=== PATIENT | female | born 1960 | race Caucasian/White ===

== ENCOUNTER → 2018-09-28 10:06 | Outpatient (CLI) | payer OTHER, SELFPAY ==
--- NOTE | 2018-09-28 10:12 | RAD_ITS ---
STUDY: X-RAY CHEST REASON FOR EXAM: Female, 58 years old. Rheumatoid arthritis. TECHNIQUE: PA and lateral views of the chest. COMPARISON: None. FINDINGS: The lungs are clear and expanded. There is no demonstrated pleural abnormality. Normal size heart. Normal mediastinum and idalmis. Normal visualized pulmonary arteries. Normal visualized aortic arch and descending thoracic aorta. Normal visualized thoracic spine. Normal visualized ribs, clavicles, and shoulders. There is no demonstrated abnormality of the visualized soft tissue structures of the upper abdomen. RAD/Chest PA and Lateral IMPRESSION: No acute cardiopulmonary disease. Electronically Signed: Oumar Escalona DO at 23:39 EST Tel [phone], Service support ,
--- NOTE | 2018-09-28 10:12 | RAD_ITS ---
STUDY: X-RAY - RIGHT HAND REASON FOR EXAM: Female, 58 years old. Rheumatoid arthritis. TECHNIQUE: 3 view(s) of the hand. COMPARISON: None. FINDINGS: Normal radiocarpal articulation. Normal distal radioulnar joint. Normal visualized carpal bones. Normal carpal articulations Normal carpometacarpal articulation of the thumb. Normal second through fifth carpometacarpal joints. Normal metacarpi. 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 Normal interphalangeal joint of the thumb. Normal proximal and distal phalanges of the thumb. Normal metacarpophalangeal joints of the second through fifth fingers. Normal proximal and distal interphalangeal joints of the second through fifth fingers. Normal phalanges of the second through fifth fingers. The soft tissue structures are unremarkable. 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 Electronically Signed: Oumar Escalona DO at 23:38 EST Tel [phone], Service support ,
--- NOTE | 2018-09-28 10:16 | RAD_ITS ---
STUDY: X-RAY - LEFT HAND REASON FOR EXAM: Female, 58 years old. Rheumatoid arthritis. TECHNIQUE: 3 view(s) of the hand. COMPARISON: None. FINDINGS: There is joint space narrowing of the radiocarpal articulation consistent with degenerative arthrosis. Normal distal radioulnar joint. Normal visualized carpal bones. There is degenerative joint disease of the scaphotrapezium / trapezoid articulation. The remainder of the carpal articulations are normal. Normal carpometacarpal articulation of the thumb. Normal second through fifth carpometacarpal joints. Normal metacarpi. Normal metacarpophalangeal joint of the thumb. Normal interphalangeal joint of the thumb. Normal proximal and distal phalanges of the thumb. Normal metacarpophalangeal joints of the second through fifth fingers. Normal proximal and distal interphalangeal joints of the second through fifth fingers. Normal phalanges of the second through fifth fingers. The soft tissue structures are unremarkable. RAD/Hand Min 3 Views IMPRESSION: Arthrosis of the wrist. Electronically Signed: Oumar Escalona DO at 23:22 EST Tel [phone], Service support ,
[2018-09-28 12:10] LABS: Absolute Lymphocyte Count 1.84 X10^3/ul (0.83-4.51); Absolute Neutrophil Count 2.4 X10^3/uL (2.0-7.7); Basophil# 0.02 X10^3/uL; Basophil% 0.4 % (0-1); Eosinophil# 0.24 X10^3/uL; Eosinophils% 4.7 % (0-5); Hematocrit 37.6 % (37-47); Hemoglobin 12.4 g/dl (12.0-15.0); Lymphocyte # 1.84 X10^3/ul (4.0); Lymphocyte % 36.1 % (19-41); Mean Corpuscular Hgb 27.9 pg (27.0-32.0); Mean Corpuscular Volume 84.5 fL (81-99); Mean Platelet Vol. 10.5 fl (6.2-12.0); Monocyte# 0.62 X10^3/uL; Monocyte% 12.2 % (0-10); Neutrophil # 2.38 X10^3/uL (2.7-7.7); Neutrophil % 46.6 % (47-70); Platelet Count 207 K/mm3 (150-450); RBC Distribution Width CV 13.5 % (11.6-14.6); RBC Distribution Width SD 40.9 fl (35.1-43.9); Red Blood Count 4.45 M/mm3 (4.2-5.4); White Blood Count 5.1 K/mm3 (4.4-11.0)
[2018-09-28 12:12] LABS: POSITIVE COUNT NO; POSITIVE DIFFERENTIAL NO; POSITIVE MORPHOLOGY NO
[2018-09-28 12:31] LABS: AST(SGOT) 27 U/L (15-37); Alanine Aminotransfer ALT/SGPT 34 U/L (13-56); Alkaline Phosphatase 75 U/L (45-117); Anion Gap 5 (5-15); BUN 13 mg/dL (7-18); BUN/Creat Ratio 14.3 RATIO (10-20); Calcium,Total 8.6 mg/dL (8.5-10.1); Chloride 104 mmol/L (98-107); Creatinine, Serum 0.91 mg/dL (0.55-1.02); EST Glomerular Filtration Rate 67 mL/min (>60); Est Glom Filt Rate - Afr Amer 82 mL/min (>60); Glucose 89 mg/dL (74-106); Potassium 3.7 mmol/L (3.5-5.1); Sodium Level 138 mmol/L (136-145)
[2018-09-30 20:08] LABS: QNTFERON TB Mitogen Value > 10.00 IU/mL (.); QNTFERON TB Nil Value 0.06 IU/mL (.); QNTFERON TB1+ Ag Value 0.05 IU/mL (.); QNTFERON TB2+ Ag Value 0.08 IU/mL (.)
[2018-10-01 09:56] LABS: ANTINUCLEAR ANTIBODIES DIRECT Positive (Negative)
[2018-10-01 11:25] LABS: CCP IgG Antibodies > 250 units (0-19); HEPATITIS B SURFACE AG Negative (Negative); Hep B Surface Antibodies Non Reactive (.); Hep C Antibodies <0.1 s/co ratio (0.0-0.9); QNTIFERON TB Positive Criteria Negative (Negative)
--- OUTSIDE RECORDS SUMMARY | 2018-11-30 12:54 | XMS RPT_ITS ---
:1960 Author Organization OHIP Care Team Providers Name Role Phone Mary Vera Attending Unavailable Mary Vera Referring Unavailable Franck De La Garza Primary Care Unavailable NATALYA, JANUARY Attending Unavailable AZRADHA, JANUARY Referring Unavailable FARRUKH LUJAN Attending Unavailable PANKAJ VALERIO ([facility]) Referring Unavailable AZEM, JANUARY Referring Unavailable NATALYA, JANUARY Referring Unavailable FRANCK DE LA GARZA Referring Unavailable FRANCK DE LA GARZA Attending Unavailable BECKY ZAMARRIPA ([facility]) Referring Unavailable FRANCK DE LA GARZA Attending Unavailable FRANCK DE LA GARZA Referring Unavailable FRANCK DE LA GARZA Referring Unavailable HASAN, HILARY Attending Unavailable HASHILARY OLIVARES Referring Unavailable FRANCK DE LA GARZA Attending Unavailable FRANCK DE LA GARZA Referring Unavailable HASAN, HILARY Referring Unavailable RADHA NOLAN ([facility]) Referring Unavailable Tapan HOANG MAY Attending Unavailable Tapan HOANG MAY Referring Unavailable Franck De La Garza MD Primary Care Unavailable Tapan HOANG MAY Attending Unavailable Tapan HOANG MAY Referring Unavailable Franck De La Garza MD Primary Care Unavailable PROBLEMS PROBLEMS DATE TYPE CONDITION / CODE ATTENDING STATUS SOURCE Unknown M05.79 - Rheumatoid Chuy, Active [place] 9 arthritis with rheumatoid [facility] of multiple sites Hospital without organ or systems Repository involvement / M05.79(ICD-10) Unknown M79.7 - Fibromyalgia / [place]ellanki, Active [place] 9 M79.7(ICD-10) [facility] Repository Unknown N20.0 - Calculus of Vellanki, Active [place] 9 kidney / N20.0(ICD-10) [facility] Repository Unknown E89.0 - Postprocedural Vellanki, Active [place] 9 hypothyroidism / [facility] E89.0(ICD-10) Hospital Repository Unknown Z85.850 - Personal Vellanki, Active [place] 9 history of malignant [facility] neoplasm of thyroid / Hospital Z85.850(ICD-10) Repository Active Dysphonia / R49.0(ICD-10) NA Active [place] [facility] Clinic Main [place] Repository Active Postprocedural NA Active [place] [address] hypothyroidism / Clinic Main E89.0(ICD-10) [place] Repository Active Unknown / UNK(Unknown) BINTAPHIA Active [address] Main [place] Repository Active Chronic kidney disease, NA Active [place] [address] stage 3 (moderate) / Clinic Main N18.3(ICD-10) [place] Repository Active Encounter for screening NA Active [place] [address] for other viral diseases Clinic Main / Z11.59(ICD-10) [place] Repository Active Unspecified injury of Active [place] [address] left shoulder and upper Clinic Main arm, initial encounter / [place] S49.92XA(ICD-10) Repository Active Other prison (current) NA Active [place] [address] drug therapy / Clinic Main Z79.899(ICD-10) [place] Repository Active Arthropathic psoriasis, NA Active [place] [address] unspecified / Clinic Main L40.50(ICD-10) [place] Repository Active Insomnia, unspecified / AZEM, MAY Active [place] [address] G47.00(ICD-10) Clinic Other [place] Repository Active Cervicalgia / AZEM, MAY Active [place] [address] M54.2(ICD-10) Clinic Other [place] Repository Active Rheumatoid arthritis with AZEM, MAY Active [place] 6 rheumatoid factor of Clinic Other multiple sites without [place] organ or systems Repository involvement / M05.79(ICD-10) Active Sicca syndrome with AZEM, MAY Active [place] [address] keratoconjunctivitis / Clinic Other M35.01(ICD-10) [place] Repository Active Malignant neoplasm of AZEM, MAY Active [place] [address] thyroid gland / Clinic Other C73(ICD-10) [place] Repository Active Lumbago with sciatica, EMJanuary Active [place] [address] unspecified side / Clinic Other M54.40(ICD-10) [place] Repository Active Other chronic pain / EM, JANUARY Active [place] [address] G89.29(ICD-10) Clinic Other [place] Repository Admitting Unknown / UNK(Unknown) Tapan HOANG Active [place] [address] diagnosis [facility] Repository PROCEDURES PROCEDURES No Procedure Records FoundRESULTS RESULTS CBC W/DIFF, AUTOMATED Collected: 09/28/2018 Status: F Source: [place] 10:16 AM [facility] REPOSITORY TYPE CODE TESTS RESULT OUT OF RANGE REFERENCE UNITS LAB L100.1000 4.4-11.0 K/mm3 Normal WBC 5.1 LAB L100.1200 4.2-5.4 M/mm3 Normal RBC 4.45 LAB L100.1300 12.0-15.0 g/dl Normal HGB 12.4 LAB L100.1400 37-47 % Normal HCT 37.6 LAB L100.1500 81-99 fL Normal MCV 84.5 LAB L100.1600 27.0-32.0 pg Normal MCH 27.9 LAB L100.1700 32-36 g/gl Normal MCHC 33.0 LAB L100.1810 11.6-14.6 % Normal RDW CV 13.5 LAB L100.1820 35.1-43.9 fl Normal RDW SD 40.9 LAB L100.1900 150-450 K/mm3 Normal PLT 207 LAB L100.2000 6.2-12.0 fl Normal MPV 10.5 LAB L100.2100 47-70 % Low NEUT% 46.6 LAB L100.2200 19-41 % Normal LY% 36.1 LAB L100.2300 0-10 % High MONO% 12.2 LAB L100.2400 0-5 % Normal EO% 4.7 LAB L100.2500 0-1 % Normal BASO% 0.4 LAB L100.2550 0.0-0.9 % Normal IM GRAN % 0.000 Result Comment: IG% - Immature Granulocytes (promyelocytes, myelocytes and metamyelocytes) > 1% indicates that a LEFT SHIFT is Present. LAB L100.2620 2.0-7.7 X10 3/uL Normal Absolute Neut 2.4 LAB L100.2720 0.83-4.51 X10 3/ul Normal Absolute Lymph 1.84 Performed By: #### L100.0100 #### [facility] [address] [place], [address] COMPREHENSIVE METABOLIC Collected: 09/28/2018 Status: F Source: [place] [facility] 10:16 AM [facility] REPOSITORY TYPE CODE TESTS RESULT OUT OF RANGE REFERENCE UNITS LAB L501.0100 74-106 mg/dL Normal GLU 89 Result Comment: Please note revised GLUCOSE reference range effective 2017. LAB L501.1000 7-18 mg/dL Normal BUN 13 LAB L501.1100 0.55-1.02 mg/dL Normal CREAT,SERUM 0.91 Result Comment: The validity of the calculated GFR AND GFRAA in patients over 70 years has not been determined. Clinical correlation is essential. LAB L501.1110 >60 mL/min Normal EST GFR 67 Result Comment: Non- GFR Calc LAB L501.1115 >60 mL/min Normal EST GFR - AA 82 Result Comment: GFR Calc LAB L501.1300 10-20 RATIO Normal BUN/CRE 14.3 LAB L501.1500 6.4-8.2 g/dL T Normal PROT 8.0 LAB L501.1800 3.2-5.0 g/dL Normal ALB 4.0 LAB L501.1950 2.2-4.2 g/dL Normal GLOB 4.0 LAB L501.2000 0.9-2.4 RATIO Normal A/G 1.0 LAB L501.2200 8.5-10.1 mg/dL CA Normal 8.6 LAB L501.4100 15-37 U/L Normal AST 27 LAB L501.4305 45-117 U/L Normal ALK P 75 LAB L501.4405 13-56 U/L Normal ALT 34 LAB L501.4600 0.20-1.00 mg/dL T Normal BILI 0.30 LAB L501.5300 136-145 mmol/L NA Normal 138 LAB L501.5600 3.5-5.1 mmol/L K Normal 3.7 LAB L501.5900 98-107 mmol/L CL Normal 104 LAB L501.6100 21.0-32.0 mmol/L Normal CO2 29.0 LAB L501.6209 5-15 Normal GAP 5 Performed By: #### L500.4050 #### [facility] [address] [place], [address] HAND MIN 3 VIEWS Observed: 09/28/2018 Status: F Source: [place] 10:16 AM [facility] REPOSITORY [facility] Imaging Services [address] [place] [address] Hand Min 3 Views MR#: [id number] Acct: [id number] Name: AMY VEGA V Rep #: [id number] : 1960 F 58 From: Oumar Escalona DO PCP: Franck De La Garza MD Status: REG CLI Study: Hand Min 3 Views Date of Exam: 09/28/18 Exam# [id number] Ordering Dr: Mary Vera MD STUDY: X-RAY - LEFT HAND REASON FOR EXAM: Female, 58 years old. Rheumatoid arthritis. TECHNIQUE: 3 view(s) of the hand. COMPARISON: None. FINDINGS: There is joint space narrowing of the radiocarpal articulation consistent with degenerative arthrosis. Normal distal radioulnar joint. Normal visualized carpal bones. There is degenerative joint disease of the scaphotrapezium / trapezoid articulation. The remainder of the carpal articulations are normal. Normal carpometacarpal articulation of the thumb. Normal second through fifth carpometacarpal joints. Normal metacarpi. Normal metacarpophalangeal joint of the thumb. Normal interphalangeal joint of the thumb. Normal proximal and distal phalanges of the thumb. Normal metacarpophalangeal joints of the second through fifth fingers. Normal proximal and distal interphalangeal joints of the second through fifth fingers. Normal phalanges of the second through fifth fingers. The soft tissue structures are unremarkable. RAD/Hand Min 3 Views IMPRESSION: Arthrosis of the wrist. Electronically Signed: Oumar Escalona, at 23:22 EST Tel [phone], Service support , CC: Mary Vera MD; Franck De La Garza MD Street Sprinkler: Signed ANTINUCLEAR ANTIBODIES Collected: 09/28/2018 Status: F Source: [place] DIRECT 10:16 AM [facility] REPOSITORY TYPE CODE TESTS RESULT OUT OF REFERENCE UNITS RANGE LAB L3100.5475 Negative High Positive MARCO ANTONIO-DIRECT Result Comment: Performed at: [facility] [id number] Video Tape Editor: Raffaele Allen PhD, Phone: [phone] Performed By: #### L3100.5475 #### [facility] (refer to report for specific site) refer to report for address and phone number HEPATITIS B SURFACE Collected: 09/28/2018 Status: F Source: [place] AG 10:16 AM [facility] REPOSITORY TYPE CODE TESTS RESULT OUT OF RANGE REFERENCE UNITS LAB L3100.0400 Negative Normal HB Negative SURF AG Result Comment: Performed at: - [facility] [id number] Video Tape Editor: Raffaele Allen PhD, Phone: [phone] Performed at: [facility] [address] [id number] Video Tape Editor: Syd Nguyễn MD, Phone: [phone] Performed By: #### L3100.0390, L3100.0528, L3100.0625, L3400.8000, L4600.0100 #### [facility] (refer to report for specific site) refer to report for address and phone number HEP B SURFACE Collected: 09/28/2018 Status: F Source: [place] ANTIBODIES 10:16 AM [facility] REPOSITORY TYPE CODE TESTS RESULT OUT OF RANGE REFERENCE UNITS LAB L3100.0528 . Normal Hep B Non Reactive Grzegorz AB Result Comment: Non Reactive: Inconsistent with immunity, less than 10 mIU/mL Reactive: Consistent with immunity, greater than 9.9 mIU/mL Performed By: #### L3100.0390, L3100.0528, L3100.0625, L3400.8000, L4600.0100 #### [facility] (refer to report for specific site) refer to report for address and phone number HEPATITIS C ANTIBODIES Collected: 09/28/2018 Status: F Source: [place] 10:16 AM [facility] REPOSITORY TYPE CODE TESTS RESULT OUT OF RANGE REFERENCE UNITS LAB L3100.0650 0.0-0.9 s/co ratio Normal HEP C AB <0.1 Result Comment: Negative: < 0.8 Indeterminate: 0.8 - 0.9 Positive: > 0.9 The CDC recommends that a positive HCV antibody result be followed up with a HCV Nucleic Acid Amplification test (766828). Performed By: #### L3100.0390, L3100.0528, L3100.0625, L3400.8000, L4600.0100 #### [facility] (refer to report for specific site) refer to report for address and phone number QUANTIFERON TB-GOLD+ Collected: 09/28/2018 Status: F Source: [place] 10:16 AM [facility] REPOSITORY TYPE CODE TESTS RESULT OUT OF RANGE REFERENCE UNITS LAB L3400.8025 . Normal QFT TB Comment GOLD Result Comment: The QuantiFERON-TB Gold Plus result is determined by subtracting the Nil value from either TB antigen (Ag) tube. The mitogen tube serves as a control for the test. LAB L3400.8035 . IU/mL Normal QFT TB1+ AG 0.05 [facility] L3400.8045 . IU/mL Normal QFT TB2+ AG 0.08 [facility] L3400.8055 . IU/mL Normal QFT NIL VALUE 0.06 LAB L3400.8065 . IU/mL Normal QFT MITOGEN > 10.00 [facility] L3400.8075 Negative Normal QFT TB POS Negative CRIT Result Comment: The specimen received for QuantiFERON testing was incubated by the ordering institution. Specific procedures outlined in our Directory of Services and in the package insert for the QuantiFERON Gold (In Tube) test must be followed to enable for proper stimulation of cells for the production of interferon gamma. Performed By: #### L3100.0390, L3100.0528, L3100.0625, L3400.8000, L4600.0100 #### [facility] (refer to report for specific site) refer to report for address and phone number CCP IGG ANTIBODIES Collected: 09/28/2018 Status: F Source: [place] 10:16 AM [facility] REPOSITORY TYPE CODE TESTS RESULT OUT OF REFERENCE UNITS RANGE LAB L4600.0100 0-19 units High ANTI-CCP > 250 [id number] Result Comment: Negative <20 Weak positive 20 - 39 Moderate positive 40 - 59 Strong positive >59 Performed By: #### L3100.0390, L3100.0528, L3100.0625, L3400.8000, L4600.0100 #### [facility] (refer to report for specific site) refer to report for address and phone number HAND MIN 3 VIEWS Observed: 09/28/2018 Status: F Source: [place] 10:13 AM [facility] REPOSITORY [facility] Imaging Services [address] [place] [address] Hand Min 3 Views MR#: [id number] Acct: [id number] Name: AMY VEGA V Rep #: [id number] : 1960 F 58 From: Oumar Escalona DO PCP: Franck De La Garza MD Status: REG CLI Study: Hand Min 3 Views Date of Exam: 09/28/18 Exam# [id number] Ordering Dr: Mary Vera MD STUDY: X-RAY - RIGHT HAND REASON FOR EXAM: Female, 58 years old. Rheumatoid arthritis. TECHNIQUE: 3 view(s) of the hand. COMPARISON: None. FINDINGS: Normal radiocarpal articulation. Normal distal radioulnar joint. Normal visualized carpal bones. Normal carpal articulations Normal carpometacarpal articulation of the thumb. Normal second through fifth carpometacarpal joints. Normal metacarpi. 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 Normal interphalangeal joint of the thumb. Normal proximal and distal phalanges of the thumb. Normal metacarpophalangeal joints of the second through fifth fingers. Normal proximal and distal interphalangeal joints of the second through fifth fingers. Normal phalanges of the second through fifth fingers. The soft tissue structures are unremarkable. 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 Electronically Signed: Oumar Escalona DO at 23:38 EST Tel [phone], Service support , CC: Mary Vera MD; Franck De La Garza MD Street Sprinkler: Signed CHEST PA AND LATERAL Observed: 09/28/2018 Status: F Source: [place] 10:13 AM [facility] REPOSITORY [facility] Imaging Services [address] [place] [address] Chest PA and Lateral MR#: [id number] Acct: [id number] Name: AMY VEGA V Rep #: [id number] : 1960 F 58 From: Oumar Escalona DO PCP: Franck De La Garza MD Status: REG CLI Study: Chest PA and Lateral Date of Exam: 09/28/18 Exam# [id number] Ordering Dr: Mary Vera MD STUDY: X-RAY CHEST REASON FOR EXAM: Female, 58 years old. Rheumatoid arthritis. TECHNIQUE: PA and lateral views of the chest. COMPARISON: None. FINDINGS: The lungs are clear and expanded. There is no demonstrated pleural abnormality. Normal size heart. Normal mediastinum and idalmis. Normal visualized pulmonary arteries. Normal visualized aortic arch and descending thoracic aorta. Normal visualized thoracic spine. Normal visualized ribs, clavicles, and shoulders. There is no demonstrated abnormality of the visualized soft tissue structures of the upper abdomen. RAD/Chest PA and Lateral IMPRESSION: No acute cardiopulmonary disease. Electronically Signed: Oumar Escalona DO at 23:39 EST Tel [phone], Service support , CC: Mary Vera MD; Franck De La Garza MD Street Sprinkler: Signed OBSOLETE Observed: 08/09/2018 Status: COMPLETED Source: [place] 12:00 AM CLINIC OTHER CAMPUS REPOSITORY Refill (LUZ MARIAUHREILLY) AMY VEGA V ([id number]) 1960 F Date Time Provider Department 08/09/18 PROMISE HOANG During your visit today, we recorded the following information about you: Duc Aranda CMA 08/09/2018 10:10 AM Signed LMTRC to see if pt was following Dr Hoang. ESTHER Renteria CMA 08/10/2018 12:44 PM Signed Yaa, Please refuse, Dr Hoang pt, unable to reach. Pharmacy faxed requesting the following refill. Pending Prescriptions Disp Refills ENBREL SURECLICK 50 MG/ML (0.98 ML) SUBCUTANEOUS PEN INJECTOR 2 Sig: INJECT 1 SURECLICK PEN (50MG) SUBCUTANEOUSLY ONCE EVERY WEEK LUISA: Yes Patient last appointment: 10/28/2017 Next Appointment: Visit date not found Patient Phone numbers: [phone] (home) Request is for script(s) to be pt needs to make an appointment. Duc Aranda CMA Allergies As of Date: 08/09/2018 Noted Allergy Reaction AMICAR (AMINOCAPROIC ACID) 06/20/2005 2 - Rash HUMIRA (ADALIMUMAB) 11/20/2015 4 - Hives Comments: welt at injection site Date Reviewed: 07/19/2018 Reviewed by: Soni Sellers Ma - Fully Assessed Reason for Visit: Refill Request [94] Prescriptions as of 08/09/2018 Sig: PHENTERMINE 3.75 MG-TOPIRAMAT* Take 1 capsule by mouth once * PHENTERMINE 3.75 MG-TOPIRAMAT* Take 1 capsule by mouth every* GABAPENTIN 300 MG CAPSULE Take 3 capsules by mouth once* CYCLOBENZAPRINE 10 MG TABLET Take 1 tablet by mouth twice * PREDNISONE 10 MG TABLET Take 4 tabs daily then follow* HYDROXYCHLOROQUINE 200 MG TAB* Take 1 tablet by mouth twice * TRAMADOL 37.5 MG-ACETAMINOPHE* Take 1 tablet by mouth three * LEVOTHYROXINE 125 MCG TABLET Take 1 tablet by mouth once d* ETANERCEPT 50 MG/ML (0.98 ML)* Inject 50 mg subcutaneously o* TRIAMCINOLONE ACETONIDE 0.5 %* Apply to affected area. APPL* OMEPRAZOLE 20 MG CAPSULE,FALGUNI* Take 1 capsule by mouth once * CHOLECALCIFEROL (VITAMIN D3) * Take 1 tablet by mouth once d* VITAMIN B COMPLEX TABLET Take 1 tablet by mouth once d* POLYETHYLENE GLYCOL 3350 17 G* 17gm in 8oz daily until stool* Problem List As Of Date 08/09/2018 Noted Resolved Myalgia and myositis, unspecified [RRQ6577] INVALID FOR*05/28/2016 GASTRITIS ANTRAL( W/O Hemorrhage) [K29.60] INVALID FOR*12/27/2014 Acute gastritis without mention of hemorrhage [*INVALID FOR*12/27/2014 More... Pneumonia, organism unspecified [J18.9] INVALID FOR*12/27/2014 Vitamin D deficiency [E55.9] INVALID FOR* Left axillary pain [M79.622] INVALID FOR*05/28/2016 Adenopathy [R59.1] INVALID FOR*05/28/2016 Kidney stone [N20.0] INVALID FOR*05/28/2016 Dysphagia [R13.10] 05/28/2016 Overweight (BMI 25.0-29.9) [E66.3] INVALID FOR* Esophageal reflux [K21.9] INVALID FOR*03/15/2015 Chronic bilateral low back pain with sciatica [*INVALID FOR* Chronic conjunctivitis of both eyes [H10.403] INVALID FOR*05/28/2016 Left carpal tunnel syndrome [G56.02] INVALID FOR*04/06/2018 GERD (gastroesophageal reflux disease) [K21.9] INVALID FOR* Postoperative hypothyroidism [E89.0] INVALID FOR* Right carpal tunnel syndrome [G56.01] INVALID FOR*04/06/2018 Thyroid cancer (HCC) [C73] INVALID FOR* More... Sjogren's syndrome (HCC) [M35.00] More... RA (rheumatoid arthritis) (HCC) [M06.9] More... 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 Primary fibromyalgia syndrome [M79.7] Neck pain [M54.2] Insomnia [G47.00] Chronic kidney insufficiency, stage 3 (moderate*INVALID FOR* Encounter Status:Closed by YAA RODRÍGUEZ on 08/10/18 XR FOOT 3V AP/LAT/OBL Observed: 07/19/2018 Status: F Source: [facility] 1:00 PM [facility] REPOSITORY * * *Final Report* * * DATE OF EXAM: Jul 19 2018 1:00PM WOX [id number] - XR FOOT 3V AP/LAT/OBL LT / PROCEDURE REASON: Foot pain, left * * * * Physician Interpretation * * * * EXAMINATION: XR FOOT 3V AP/LAT/OBL LT HISTORY: pt states Thursday was on steps and fell down a couple pain anterior left ankle and medial side with some pain forefoot dista 5th MT Foot pain, left . TECHNIQUE: XR FOOT 3V AP/LAT/OBL LT Laterality: LEFT Number of different views (projections): 3 M: XB_1 COMPARISON: There are no prior studies for comparison. RESULT: Standing AP radiographs of the bilateral feet with oblique and lateral views of the left foot show no acute fracture or dislocation. Subchondral lucency involving the base of the left fifth proximal phalanx and the left fifth metatarsal head as well as the right fifth metatarsal head present without cortical disruption. Well-corticated undulating contour of the lateral margin of the left fifth metatarsal head suggest possible healed erosive changes. Joint spaces are preserved. Tiny calcaneal spurs noted. IMPRESSION: No Acute Fracture. Chronic changes as detailed in report. Street Sprinkler: PSCB Transcribe Date/Time: Jul 19 2018 1:04P Dictated by : JAKI BOWER MD This examination was interpreted and the report reviewed and electronically signed by: JAKI BOWER MD on Jul 19 2018 1:11PM EST [id number] XR ANKLE 3V AP/LAT/OBL Observed: 07/19/2018 Status: F Source: [facility] 1:00 PM [facility] REPOSITORY * * *Final Report* * * DATE OF EXAM: Jul 19 2018 1:00PM WOX [id number] - XR ANKLE 3V AP/LAT/OBL LT / PROCEDURE REASON: Acute left ankle pain * * * * Physician Interpretation * * * * EXAMINATION: XR ANKLE 3V AP/LAT/OBL LT HISTORY: pt states Thursday was on steps and fell down a couple pain anterior left ankle and medial side with some pain forefoot dista 5th MT Acute left ankle pain . TECHNIQUE: XR ANKLE 3V AP/LAT/OBL LT Laterality: LEFT Number of different views (projections): 3 M: XB_1 COMPARISON: There are no prior studies for comparison. RESULT: AP radiographs of the bilateral ankles with oblique and lateral radiographs of the left ankle show no acute osseous, articular or soft tissue abnormality. Joint spaces are preserved. There are no erosive changes. IMPRESSION: No Acute Fracture. Street Sprinkler: GABI Transcribe Date/Time: Jul 19 2018 1:12P Dictated by : JAKI BOWER MD This examination was interpreted and the report reviewed and electronically signed by: JAKI BOWER MD on Jul 19 2018 1:13PM EST [id number] Observed: 07/19/2018 Status: COMPLETED Source: [place] 12:48 PM [facility] REPOSITORY O ID: [id number] Author: Radha Nolan Service: (none) Author Type: Nurse Practitioner Type: Progress Notes Filed: 07/19/2018 1:28 PM Note Text: Subjective The history is provided by the patient and the spouse. HPI Amy Vega is a 57 year old female who presents today for CC of patient was at an auction and walking down steps, and missed two steps, landing on left ankle/foot, felt it roll inward, this happened on Thursday. She has used Tramadol and ice and elevation. Increase pain with flexion and rotation, and pressure with walking. No previous injury to foot. BP 126/78 Pulse 76 Temp 36.7 ?C (98 ?F) (Tympanic) Resp 16 Wt 76.7 kg (169 lb) BMI 27.16 kg/m? ALLERGIES Allergen Reactions - Amicar [Aminocaproi* Rash - Humira [Adalimumab] Hives welt at injection site ACTIVE PROBLEM LIST Vitamin D Deficiency Overweight (Bmi 25.0-29.9) Chronic Bilateral Low Back Pain With Sciatica Gerd (Gastroesophageal Reflux Disease) Postoperative Hypothyroidism Thyroid Cancer (Hcc) Sjogren's Syndrome (Hcc) Ra (Rheumatoid Arthritis) (Hcc) Psoriasis With Arthropathy (Hcc) Primary Fibromyalgia Syndrome Neck Pain Insomnia Chronic Kidney Insufficiency, Stage 3 (Moderate) (Hcc) Family History Problem Relation Age of Onset - Cancer Father - None Mother - Diabetes Brother from type I dx/d age 9 - Breast Cancer Sister - Thyroid Sister cancer - Diabetes Grandchild Type I age 8 Social History Marital status: Spouse name: ashok Years of education: Number of children: 2 Occupational History 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 * Surgery (11/10/06): total thyroidectomy, Dr. Jesus Cordova. * GAMING (): treatment 100 mCi 131-Iodine, TSH=77.57 * Scan (): postRx scan, 2 spots in thyroid bed, else negative (): Thyrogen-stim 4.3 mCi 131-I total body scan, uptake right submandibuar area (inflamed salivary gland?), but otherwise no evidence for disease local or metastatic * Ultrasound (): no suspicious adenopathy along great vessels or in lateral neck on either side. No masses in thyroid bed. (11/09/09): no suspicious adenopathy along great vessels or in lateral neck on either side. No masses in thyroid bed. (01/31/11): no suspicious adenopathy along great vessels or in lateral neck on either side. No masses in thyroid bed. * Thyroglobulin (): TG=0.5 ng/ml, Ab 6.1 IU/L (0-14), TSH=77.57 (): TG <0.2 ng/ml, Ab neg (): TG <0.2 ng/ml, Ab neg (): TG <0.2 ng/ml, Ab neg, Thyrogen stim (04/25/ - Thyroid cancer (HCC) 2005 removed, radioactive iodine ablation - Vitamin D deficiency Review of Systems Constitutional: Negative. Negative for chills, fever and malaise/fatigue. Musculoskeletal: Positive for joint pain (left ankle and foot). Negative for myalgias. Skin: Negative for rash. Neurological: Negative for tingling and headaches. Objective Physical Exam Constitutional: She is oriented to person, place, and time and well-developed, well-nourished, and in no distress. No distress. HENT: Head: Normocephalic and atraumatic. Eyes: Pupils are equal, round, and reactive to light. Conjunctivae and EOM are normal. Neck: Normal range of motion. Neck supple. Cardiovascular: Pulses: Dorsalis pedis pulses are 2+ on the right side, and 2+ on the left side. Posterior tibial pulses are 2+ on the right side, and 2+ on the left side. Pulmonary/Chest: Effort normal. Musculoskeletal: Left ankle: She exhibits decreased range of motion and swelling. She exhibits no ecchymosis, no deformity, no laceration and normal pulse. Tenderness. Lateral malleolus tenderness found. No medial malleolus, no AITFL, no CF ligament, no posterior TFL, no head of 5th metatarsal and no proximal fibula tenderness found. Achilles tendon normal. Left foot: There is decreased range of motion, tenderness, bony tenderness and swelling. There is normal capillary refill, no crepitus, no deformity and no laceration. Feet: Neurological: She is alert and oriented to person, place, and time. She has normal sensation and normal reflexes. Reflex Scores: Achilles reflexes are 2+ on the right side and 2+ on the left side. Decrease strength with flexion and extension Skin: Skin is warm and dry. Psychiatric: Affect normal. Nursing note and vitals reviewed. ASSESSMENT/PLAN: 1. Acute left ankle pain - ICD9: 719.47, ICD10: M25.572 (primary diagnosis) Rest, ice, elevation, LATHA wrap or splint as applied, pain medications as discussed Tylenol or motrin/Advil/ibuprofen as needed for pain Do not use with tramadol one or the other Tylenol (generic acetaminophen) 500 mg-2 tabs every 8 hrs. as needed for fever and aches Ibuprofen 600 mg (3-200mg tablets) every 6 hours See your doctor if not improving Stretches given if pain persists beyond 10-14 days there are times where a repeat x-ray is needed to rule out occult fracture - XR ANKLE GENERAL 3V AP/LAT/OBL LT - interpreted by Jaki Bower MD IMPRESSION: No Acute Fracture. RESULT: AP radiographs of the bilateral ankles with oblique and lateral radiographs of the left ankle show no acute osseous, articular or soft tissue abnormality. ?Joint spaces are preserved. There are no erosive Changes. 2. Foot pain, left - ICD9: 729.5, ICD10: M79.672 Xrays were completed and interpreted by the radiologist as negative for acute bony abnormality. - XR FOOT GENERAL 3V AP/LAT/OBL LT - interpreted by AJKI BOWER MD IMPRESSION: No Acute Fracture. ? Chronic changes as detailed in report. RESULT: Standing AP radiographs of the bilateral feet with oblique and lateral views of the left foot show no acute fracture or dislocation. Subchondral lucency involving the base of the left fifth proximal phalanx and the left fifth metatarsal head as well as the right fifth metatarsal head present without cortical disruption. Well-corticated undulating contour of the lateral margin of the left fifth metatarsal head suggest possible healed erosive changes. Joint spaces are preserved. Tiny calcaneal spurs noted. Diagnosis and treatment plan were discussed and questions were answered to the patient's satisfaction. Pt acknowledged understanding of concepts and follow up plan. Specific signs and symptoms that would indicate the need for higher level of care were discussed in detail warranting prompt ER evaluation. Radha Nolan APRN.PENNY PROGRESS Observed: 07/19/2018 Status: COMPLETED Source: [place] 12:41 PM [facility] REPOSITORY HNO ID: [id number] Author: Rama Willis (Rt) [facility] Service: (none) Author Type: Crocheter Type: Progress Notes Filed: 07/19/2018 12:58 PM Note Text: Radiology Service Progress Note PATIENT NAME: Amy Vega DATE OF SERVICE: July 19, 2018 TIME: 12:41 PM PATIENT IDENTITY VERIFICATION COMPLETED USING TWO (2) METHODS: Patient confirmed name verbally and Date of . PATIENT GENDER DATA: Female. status: : No status: NO. PATIENT RELEVANT IMPLANT DATA REVIEWED: Not Applicable RADIOLOGY DEPARTMENT: General X-ray: Exam(s) Completed: Lower Extremity X-Ray(s): Ankle, Left and Foot, Left: PERIPHERAL IV DATA: Not applicable SIGNED BY: RT [place] July 19, 2018 12:41 PM CNOV Observed: 07/19/2018 Status: COMPLETED Source: [place] 12:00 PM [facility] REPOSITORY Office Visit (WSTR) MARIMARAMY V ([id number]) 1960 F Date Time Provider Department 07/19/18 12:00 PM RADHA NOLAN ([facility]) [facility] During your visit today, we recorded the following information about you: Temperature Pulse Respiration Blood pressure 98 degrees 76/minute 16/minute 126/78 Weight 76.7 kg Radha NolanGARRY.PENNY 07/19/2018 1:28 PM Signed Subjective The history is provided by the patient and the spouse. JOHNNY Vega is a 57 year old female who presents today for CC of patient was at an auction and walking down steps, and missed two steps, landing on left ankle/foot, felt it roll inward, this happened on Thursday. She has used Tramadol and ice and elevation. Increase pain with flexion and rotation, and pressure with walking. No previous injury to foot. BP 126/78 Pulse 76 Temp 36.7 ?C (98 ?F) (Tympanic) Resp 16 Wt 76.7 kg (169 lb) BMI 27.16 kg/m? ALLERGIES Allergen Reactions - Amicar [Aminocaproi* Rash - Humira [Adalimumab] Hives welt at injection site ACTIVE PROBLEM LIST Vitamin D Deficiency Overweight (Bmi 25.0-29.9) Chronic Bilateral Low Back Pain With Sciatica Gerd (Gastroesophageal Reflux Disease) Postoperative Hypothyroidism Thyroid Cancer (Hcc) Sjogren's Syndrome (Hcc) Ra (Rheumatoid Arthritis) (Hcc) Psoriasis With Arthropathy (Hcc) Primary Fibromyalgia Syndrome Neck Pain Insomnia Chronic Kidney Insufficiency, Stage 3 (Moderate) (Hcc) Family History Problem Relation Age of Onset - Cancer Father - None Mother - Diabetes Brother from type I dx/d age 9 - Breast Cancer Sister - Thyroid Sister cancer - Diabetes Grandchild Type I age 8 Social History Marital status: Spouse name: ashok Years of education: Number of children: 2 Occupational History 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 * Surgery (11/10/06): total thyroidectomy, Dr. Jesus Cordova. * GAMING (): treatment 100 mCi 131-Iodine, TSH=77.57 * Scan (): postRx scan, 2 spots in thyroid bed, else negative (): Thyrogen- stim 4.3 mCi 131-I total body scan, uptake right submandibuar area (inflamed salivary gland?), but otherwise no evidence for disease local or metastatic * Ultrasound (): no suspicious adenopathy along great vessels or in lateral neck on either side. No masses in thyroid bed. (11/09/09): no suspicious adenopathy along great vessels or in lateral neck on either side. No masses in thyroid bed. (01/31/11): no suspicious adenopathy along great vessels or in lateral neck on either side. No masses in thyroid bed. * Thyroglobulin (): TG=0.5 ng/ml, Ab 6.1 IU/L (0-14), TSH=77.57 (): TG <0.2 ng/ml, Ab neg (): TG <0.2 ng/ml, Ab neg (): TG <0.2 ng/ml, Ab neg, Thyrogen stim (04/25/ - Thyroid cancer (HCC) 2004 removed, radioactive iodine ablation - Vitamin D deficiency Review of Systems Constitutional: Negative. Negative for chills, fever and malaise/fatigue. Musculoskeletal: Positive for joint pain (left ankle and foot). Negative for myalgias. Skin: Negative for rash. Neurological: Negative for tingling and headaches. Objective Physical Exam Constitutional: She is oriented to person, place, and time and well-developed, well-nourished, and in no distress. No distress. HENT: Head: Normocephalic and atraumatic. Eyes: Pupils are equal, round, and reactive to light. Conjunctivae and EOM are normal. Neck: Normal range of motion. Neck supple. Cardiovascular: Pulses: Dorsalis pedis pulses are 2+ on the right side, and 2+ on the left side. Posterior tibial pulses are 2+ on the right side, and 2+ on the left side. Pulmonary/Chest: Effort normal. Musculoskeletal: Left ankle: She exhibits decreased range of motion and swelling. She exhibits no ecchymosis, no deformity, no laceration and normal pulse. Tenderness. Lateral malleolus tenderness found. No medial malleolus, no AITFL, no CF ligament, no posterior TFL, no head of 5th metatarsal and no proximal fibula tenderness found. Achilles tendon normal. Left foot: There is decreased range of motion, tenderness, bony tenderness and swelling. There is normal capillary refill, no crepitus, no deformity and no laceration. Feet: Neurological: She is alert and oriented to person, place, and time. She has normal sensation and normal reflexes. Reflex Scores: Achilles reflexes are 2+ on the right side and 2+ on the left side. Decrease strength with flexion and extension Skin: Skin is warm and dry. Psychiatric: Affect normal. Nursing note and vitals reviewed. ASSESSMENT/PLAN: 1. Acute left ankle pain - ICD9: 719.47, ICD10: M25.572 (primary diagnosis) Rest, ice, elevation, LATHA wrap or splint as applied, pain medications as discussed Tylenol or motrin/Advil/ibuprofen as needed for pain Do not use with tramadol one or the other Tylenol (generic acetaminophen) 500 mg-2 tabs every 8 hrs. as needed for fever and aches Ibuprofen 600 mg (3-200mg tablets) every 6 hours See your doctor if not improving Stretches given if pain persists beyond 10-14 days there are times where a repeat x-ray is needed to rule out occult fracture - XR ANKLE GENERAL 3V AP/LAT/OBL LT - interpreted by Jaki Bower MD IMPRESSION: No Acute Fracture. RESULT: AP radiographs of the bilateral ankles with oblique and lateral radiographs of the left ankle show no acute osseous, articular or soft tissue abnormality. ?Joint spaces are preserved. There are no erosive Changes. 2. Foot pain, left - ICD9: 729.5, ICD10: M79.672 Xrays were completed and interpreted by the radiologist as negative for acute bony abnormality. - XR FOOT GENERAL 3V AP/LAT/OBL LT - interpreted by JAKI BOWER MD IMPRESSION: No Acute Fracture. ? Chronic changes as detailed in report. RESULT: Standing AP radiographs of the bilateral feet with oblique and lateral views of the left foot show no acute fracture or dislocation. Subchondral lucency involving the base of the left fifth proximal phalanx and the left fifth metatarsal head as well as the right fifth metatarsal head present without cortical disruption. Well-corticated undulating contour of the lateral margin of the left fifth metatarsal head suggest possible healed erosive changes. Joint spaces are preserved. Tiny calcaneal spurs noted. Diagnosis and treatment plan were discussed and questions were answered to the patient's satisfaction. Pt acknowledged understanding of concepts and follow up plan. Specific signs and symptoms that would indicate the need for higher level of care were discussed in detail warranting prompt ER evaluation. Radha Nolan APRN.PENNY Nolan APRN.PENNY 07/19/2018 1:16 PM Signed ASSESSMENT/PLAN: 1. Acute left ankle pain - ICD9: 719.47, ICD10: M25.572 (primary diagnosis) Rest, ice, elevation, LATHA wrap or splint as applied, pain medications as discussed Tylenol or motrin/Advil/ibuprofen as needed for pain Do not use with tramadol one or the other Tylenol (generic acetaminophen) 500 mg-2 tabs every 8 hrs. as needed for fever and aches Ibuprofen 600 mg (3-200mg tablets) every 6 hours See your doctor if not improving Stretches given if pain persists beyond 10-14 days there are times where a repeat x-ray is needed to rule out occult fracture - XR ANKLE GENERAL 3V AP/LAT/OBL LT 2. Foot pain, left - ICD9: 729.5, ICD10: M79.672 Xrays were completed and interpreted by the radiologist as negative for acute bony abnormality. - XR FOOT GENERAL 3V AP/LAT/OBL LT Referring Provider: SELF [200] Allergies As of Date: 07/19/2018 Noted Allergy Reaction AMICAR (AMINOCAPROIC ACID) 06/20/2005 2 - Rash HUMIRA (ADALIMUMAB) 11/20/2015 4 - Hives Comments: welt at injection site Date Reviewed: 07/19/2018 Reviewed by: Soni Sellers Ma - Fully Assessed Reason for Visit: Pain (foot) [760] Cmt: left foot pain x thursday after fall Primary Visit Diagnosis:Acute left ankle pain [M25.572] Other Visit Diagnosis:Foot pain, left [M79.672] Order(s):XR ANKLE GENERAL 3V AP/LAT/OBL LT [[id number]] Order #: [id number] #:[id number] XR FOOT GENERAL 3V AP/LAT/OBL LT [[id number]] Order #: [id number]. #:[id number] Prescriptions as of 07/19/2018 Sig: GABAPENTIN 300 MG CAPSULE Take 3 capsules by mouth once* CYCLOBENZAPRINE 10 MG TABLET Take 1 tablet by mouth twice * PREDNISONE 10 MG TABLET Take 4 tabs daily then follow* HYDROXYCHLOROQUINE 200 MG TAB* Take 1 tablet by mouth twice * TRAMADOL 37.5 MG-ACETAMINOPHE* Take 1 tablet by mouth three * LEVOTHYROXINE 125 MCG TABLET Take 1 tablet by mouth once d* ETANERCEPT 50 MG/ML (0.98 ML)* Inject 50 mg subcutaneously o* TRIAMCINOLONE ACETONIDE 0.5 %* Apply to affected area. APPL* OMEPRAZOLE 20 MG CAPSULE,FALGUNI* Take 1 capsule by mouth once * CHOLECALCIFEROL (VITAMIN D3) * Take 1 tablet by mouth once d* VITAMIN B COMPLEX TABLET Take 1 tablet by mouth once d* POLYETHYLENE GLYCOL 3350 17 G* 17gm in 8oz daily until stool* PHENTERMINE 3.75 MG-TOPIRAMAT* Take 1 capsule by mouth once * PHENTERMINE 3.75 MG-TOPIRAMAT* Take 1 capsule by mouth every* Problem List As Of Date 07/19/2018 Noted Resolved Myalgia and myositis, unspecified [BVF0727] INVALID FOR*05/28/2016 GASTRITIS ANTRAL( W/O Hemorrhage) [K29.60] INVALID FOR*12/27/2014 Acute gastritis without mention of hemorrhage [*INVALID FOR*12/27/2014 More... Pneumonia, organism unspecified [J18.9] INVALID FOR*12/27/2014 Vitamin D deficiency [E55.9] INVALID FOR* Left axillary pain [M79.622] INVALID FOR*05/28/2016 Adenopathy [R59.1] INVALID FOR*05/28/2016 Kidney stone [N20.0] INVALID FOR*05/28/2016 Dysphagia [R13.10] 05/28/2016 Overweight (BMI 25.0-29.9) [E66.3] INVALID FOR* Esophageal reflux [K21.9] INVALID FOR*03/15/2015 Chronic bilateral low back pain with sciatica [*INVALID FOR* Chronic conjunctivitis of both eyes [H10.403] INVALID FOR*05/28/2016 Left carpal tunnel syndrome [G56.02] INVALID FOR*04/06/2018 GERD (gastroesophageal reflux disease) [K21.9] INVALID FOR* Postoperative hypothyroidism [E89.0] INVALID FOR* Right carpal tunnel syndrome [G56.01] INVALID FOR*04/06/2018 Thyroid cancer (HCC) [C73] INVALID FOR* More... Sjogren's syndrome (HCC) [M35.00] More... RA (rheumatoid arthritis) (HCC) [M06.9] More... 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 Primary fibromyalgia syndrome [M79.7] Neck pain [M54.2] Insomnia [G47.00] Chronic kidney insufficiency, stage 3 (moderate*INVALID FOR* Other instructions from your clinician: ASSESSMENT/PLAN: 1. Acute left ankle pain - ICD9: 719.47, ICD10: M25.572 (primary diagnosis) Rest, ice, elevation, LATHA wrap or splint as applied, pain medications as discussed Tylenol or motrin/Advil/ibuprofen as needed for pain Do not use with tramadol one or the other Tylenol (generic acetaminophen) 500 mg-2 tabs every 8 hrs. as needed for fever and aches Ibuprofen 600 mg (3-200mg tablets) every 6 hours See your doctor if not improving Stretches given if pain persists beyond 10-14 days there are times where a repeat x-ray is needed to rule out occult fracture - XR ANKLE GENERAL 3V AP/LAT/OBL LT 2. Foot pain, left - ICD9: 729.5, ICD10: M79.672 Xrays were completed and interpreted by the radiologist as negative for acute bony abnormality. - XR FOOT GENERAL 3V AP/LAT/OBL LT Encounter Status:Closed by RADHA NOLAN CNP on 07/19/18 US THYROID/PARATHYROID Observed: 05/26/2018 Status: F Source: [facility] 3:28 PM [facility] REPOSITORY * * *Final Report* * * DATE OF EXAM: May 26 2018 3:28PM TRA 1048 - US THYROID/PARATHYROID / PROCEDURE REASON: Dysphonia * * * * Physician Interpretation * * * * CERVICAL LYMPH NODE MAPPING ULTRASOUND 05/26/2018 CLINICAL HISTORY: 57 years old female with history of dysphagia, status post thyroidectomy for thyroid cancer. COMPARISON: None TECHNIQUE: Sonography of the cervical lymph node stations was performed bilaterally. Images were obtained and stored in a permanent archive. RESULT: There is no abnormal soft tissue in the thyroidectomy bed. Multiple subcentimeter benign-appearing lymph nodes. Right neck: - Level I: No abnormal lymph nodes. - Level II: No abnormal lymph nodes. - Level III: No abnormal lymph nodes. - Level IV: No abnormal lymph nodes. - Level V: No abnormal lymph nodes. Left neck: - Level I: No abnormal lymph nodes. - Level II: No abnormal lymph nodes. - Level III: No abnormal lymph nodes. - Level IV: No abnormal lymph nodes. - Level V: No abnormal lymph nodes. Central compartment, Level : No abnormal lymph nodes. IMPRESSION: NO ABNORMAL SOFT TISSUE IN THE THYROIDECTOMY BED. MULTIPLE SUBCENTIMETER BENIGN-APPEARING LYMPH NODES. Street Sprinkler: PSCB Transcribe Date/Time: May 26 2018 3:33P Dictated by : JOSE CLAYTON MD This examination was interpreted and the report reviewed and electronically signed by: JALIL FAROOQ JR, MD on May 26 2018 3:41PM EST [id number] Observed: 05/14/2018 Status: COMPLETED Source: [facility] 7:50 PM [facility] HNO ID: [id number] Author: Franck De La Garza Service: (none) Author Type: Physician Type: Progress Notes Filed: 05/14/2018 8:05 PM Note Text: This note was created using eXelateriter. Subjective Amy Vega is a 57 year old female here for medication taper. She had been on Qsymia, used for maintenance of weight loss. Her highest weight was 190 pounds, BMI 29.75. She was started on medication to help her joint pains. She had no other obesity related co-morbidities. She was started on phentermine in 2012, then maintained on Qsymia since 2013. At her initial visit, we agreed to wean off medication as this was used off label, and she did not meet the FDA approved indications. She was paying more attention to her diet. Her weight had increased slightly. Review of Systems Objective BP 108/72 (BP Site: Right Arm, BP Position: Sitting, BP Cuff Size: Regular Adult) Pulse 81 Temp 37.2 ?C (98.9 ?F) (Tympanic) Resp 14 Wt 72.1 kg (159 lb) SpO2 97% BMI 25.55 kg/m? Physical Exam Constitutional: No distress. Neurological: She is alert. Psychiatric: She has a normal mood and affect. Assessment and Plan ASSESSMENT/PLAN: 1. Overweight (BMI 25.0-29.9) - ICD9: 278.02, ICD10: E66.3 (primary diagnosis) Continue gradual wean to discontinue as prescribed. - PHENTERMINE 3.75 MG-TOPIRAMATE ER 23 MG CAPSULE,EXT.RELEASE 24HR MPHAS - PHENTERMINE 3.75 MG-TOPIRAMATE ER 23 MG CAPSULE,EXT.RELEASE 24HR MPHAS 2. Need for vaccination - ICD9: V05.9, ICD10: Z23 - INFLUENZA VACCINE QUADRIVALENT AGE 3 YRS PLUS + IM Franck De La Garza MD PROGRESS Observed: 05/14/2018 Status: COMPLETED Source: [place] 1:44 PM [facility] REPOSITORY HNO ID: [id number] Author: Maris Melara Cma Service: (none) Author Type: (none) Type: Progress Notes Filed: 05/14/2018 8:05 PM Note Text: 57 year old female here for INACTIVATED INFLUENZA VACCINE. [id number] Season Patient is identified by name and date of : Yes [] CONTRAINDICATIONS color enhanced section Age less than 6 months? No Allergy to eggs, chicken, chicken feathers, or chicken dander? No Allergy to thimerosal (a preservative) or formaldehyde? No History of severe reaction to any vaccine component or a previous dose of influenza vaccination? No History of Guillain-Austin Syndrome within 6 weeks after a previous influenza vaccine? No Current moderate or severe illness? No Current temperature greater or equal to 100.4F? No History of Bone Marrow Transplant in past 6 months or solid organ transplant in the past 3 months ? No [] VERIFICATION color enhanced section Was the answer Yes for any of the above contraindications? No contraindications present. Acceptable to proceed with vaccine. Patient/guardian agrees the above answers are true to the best of their knowledge? Yes Flu vaccine information sheet given? Yes See immunization activity in [facility] for details of immunizations adminstered today. Patient age: [age] year old For The Flu Season 6-35 months old: Fluzone 0.25 ml - IM (Preservative Free) 3 years of age: Fluzone 0.5 ml - IM (Preservative Free) 3 years and older: Fluzone 0.5 ml- IM-(with Preservatives) 65+ years old: Fluzone High-Dose 0.5 ml - IM (Preservative Free) REMEMBER: If patient is less than 9 years of age and this is the first vaccine of Influenza to be received in any flu season, they should receive a second dose in one months time. CNOV Observed: 05/14/2018 Status: COMPLETED Source: [facility] 12:40 PM [facility] Office Visit (INTMWS) AMY VEGA V ([id number]) 1960 F Date Time Provider Department 05/14/18 12:40 PM FRANCK DE LA GARZA During your visit today, we recorded the following information about you: Temperature Pulse Respiration Blood pressure 98.9 degrees 81/minute 14/minute 108/72 Weight 72.1 kg Maris Saritha [facility] 05/14/2018 8:05 PM Signed 57 year old female here for INACTIVATED INFLUENZA VACCINE. [id number] Season Patient is identified by name and date of : Yes [] CONTRAINDICATIONS color enhanced section Age less than 6 months? No Allergy to eggs, chicken, chicken feathers, or chicken dander? No Allergy to thimerosal (a preservative) or formaldehyde? No History of severe reaction to any vaccine component or a previous dose of influenza vaccination? No History of Guillain-Austin Syndrome within 6 weeks after a previous influenza vaccine? No Current moderate or severe illness? No Current temperature greater or equal to 100.4F? No History of Bone Marrow Transplant in past 6 months or solid organ transplant in the past 3 months ? No [] VERIFICATION color enhanced section Was the answer Yes for any of the above contraindications? No contraindications present. Acceptable to proceed with vaccine. Patient/guardian agrees the above answers are true to the best of their knowledge? Yes Flu vaccine information sheet given? Yes See immunization activity in [facility] for details of immunizations adminstered today. Patient age: [age] year old For The [birth year] Flu Season 6-35 months old: Fluzone 0.25 ml - IM (Preservative Free) 3 years of age: Fluzone 0.5 ml - IM (Preservative Free) 3 years and older: Fluzone 0.5 ml- IM-(with Preservatives) 65+ years old: Fluzone High-Dose 0.5 ml - IM (Preservative Free) REMEMBER: If patient is less than 9 years of age and this is the first vaccine of Influenza to be received in any flu season, they should receive a second dose in one months time. Franck De La Garza MD 05/14/2018 8:05 PM Signed This note was created using [employer] That. Subjective Amy Vega is a 57 year old female here for medication taper. She had been on Qsymia, used for maintenance of weight loss. Her highest weight was 190 pounds, BMI 29.75. She was started on medication to help her joint pains. She had no other obesity related co-morbidities. She was started on phentermine in 2012, then maintained on Qsymia since 2013. At her initial visit, we agreed to wean off medication as this was used off label, and she did not meet the FDA approved indications. She was paying more attention to her diet. Her weight had increased slightly. Review of Systems Objective BP 108/72 (BP Site: Right Arm, BP Position: Sitting, BP Cuff Size: Regular Adult) Pulse 81 Temp 37.2 ?C (98.9 ?F) (Tympanic) Resp 14 Wt 72.1 kg (159 lb) SpO2 97% BMI 25.55 kg/m? Physical Exam Constitutional: No distress. Neurological: She is alert. Psychiatric: She has a normal mood and affect. Assessment and Plan ASSESSMENT/PLAN: 1. Overweight (BMI 25.0-29.9) - ICD9: 278.02, ICD10: E66.3 (primary diagnosis) Continue gradual wean to discontinue as prescribed. - PHENTERMINE 3.75 MG-TOPIRAMATE ER 23 MG CAPSULE,EXT.RELEASE 24HR MPHAS - PHENTERMINE 3.75 MG-TOPIRAMATE ER 23 MG CAPSULE,EXT.RELEASE 24HR MPHAS 2. Need for vaccination - ICD9: V05.9, ICD10: Z23 - INFLUENZA VACCINE QUADRIVALENT AGE 3 YRS PLUS + IM Franck De La Garza MD Referring Provider: FRANCK DE LA GARZA [[id number]] Allergies As of Date: 05/14/2018 Noted Allergy Reaction AMICAR (AMINOCAPROIC ACID) 06/20/2005 2 - Rash HUMIRA (ADALIMUMAB) 11/20/2015 4 - Hives Comments: welt at injection site Date Reviewed: 05/14/2018 Reviewed by: Maris Melara Policy And Planning Manager - Fully Assessed Reason for Visit: Recheck [92] Cmt: 4 week F/U Imm/Inj [58] Cmt: Flu Vaccine Reason For Visit History Recorded Primary Visit Diagnosis:Overweight (BMI 25.0-29.9) [E66.3] Other Visit Diagnosis:Need for vaccination [Z23] Order(s):phentermine-topiramate ER (QSYMIA) 3.75-23 mg 24 Hr CapsuleTake 1 capsule by mouth once daily for 30 days.Disp: 30 capsuleRfl: 0 [START ON 06/13/2018] phentermine-topiramate ER (QSYMIA) 3.75-23 mg 24 Hr CapsuleTake 1 capsule by mouth every other day for 14 days. Then discontinue.Disp: 7 capsuleRfl: 0 INFLUENZA VACCINE QUADRIVALENT AGE 3 YRS PLUS + IM [[id number]] Order #: [id number] Prescriptions as of 05/14/2018 Sig: GABAPENTIN 300 MG CAPSULE Take 3 capsules by mouth once* CYCLOBENZAPRINE 10 MG TABLET Take 1 tablet by mouth twice * PREDNISONE 10 MG TABLET Take 4 tabs daily then follow* HYDROXYCHLOROQUINE 200 MG TAB* Take 1 tablet by mouth twice * TRAMADOL 37.5 MG-ACETAMINOPHE* Take 1 tablet by mouth three * LEVOTHYROXINE 125 MCG TABLET Take 1 tablet by mouth once d* ETANERCEPT 50 MG/ML (0.98 ML)* Inject 50 mg subcutaneously o* TRIAMCINOLONE ACETONIDE 0.5 %* Apply to affected area. APPL* OMEPRAZOLE 20 MG CAPSULE,FALGUNI* Take 1 capsule by mouth once * CHOLECALCIFEROL (VITAMIN D3) * Take 1 tablet by mouth once d* VITAMIN B COMPLEX TABLET Take 1 tablet by mouth once d* POLYETHYLENE GLYCOL 3350 17 G* 17gm in 8oz daily until stool* PHENTERMINE 3.75 MG-TOPIRAMAT* Take 1 capsule by mouth once * PHENTERMINE 3.75 MG-TOPIRAMAT* Take 1 capsule by mouth every* Problem List As Of Date 05/14/2018 Noted Resolved Myalgia and myositis, unspecified [FZO6650] INVALID FOR*05/28/2016 GASTRITIS ANTRAL( W/O Hemorrhage) [K29.60] INVALID FOR*12/27/2014 Acute gastritis without mention of hemorrhage [*INVALID FOR*12/27/2014 More... Pneumonia, organism unspecified [J18.9] INVALID FOR*12/27/2014 Vitamin D deficiency [E55.9] INVALID FOR* Left axillary pain [M79.622] INVALID FOR*05/28/2016 Adenopathy [R59.1] INVALID FOR*05/28/2016 Kidney stone [N20.0] INVALID FOR*05/28/2016 Dysphagia [R13.10] 05/28/2016 Overweight (BMI 25.0-29.9) [E66.3] INVALID FOR* Esophageal reflux [K21.9] INVALID FOR*03/15/2015 Chronic bilateral low back pain with sciatica [*INVALID FOR* Chronic conjunctivitis of both eyes [H10.403] INVALID FOR*05/28/2016 Left carpal tunnel syndrome [G56.02] INVALID FOR*04/06/2018 GERD (gastroesophageal reflux disease) [K21.9] INVALID FOR* Postoperative hypothyroidism [E89.0] INVALID FOR* Right carpal tunnel syndrome [G56.01] INVALID FOR*04/06/2018 Thyroid cancer (HCC) [C73] INVALID FOR* More... Sjogren's syndrome (HCC) [M35.00] More... RA (rheumatoid arthritis) (HCC) [M06.9] More... 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 Primary fibromyalgia syndrome [M79.7] Neck pain [M54.2] Insomnia [G47.00] Chronic kidney insufficiency, stage 3 (moderate*INVALID FOR* Prescriptions ordered this encounter Disp Refills Start End PHENTERMINE 3.75 MG-TOPIRAMATE ER 23* 30 c* 0 05/14/2018 06/13/2018 Class: Print RX Route: ORAL Sig: Take 1 capsule by mouth once daily for 30 days. PHENTERMINE 3.75 MG-TOPIRAMATE ER 23* 7 ca* 0 06/13/2018 06/27/2018 Class: Print RX Route: ORAL Sig: Take 1 capsule by mouth every other day for 14 days. Then discontinue. Medications Discontinued During This Encounter phentermine-topiramate ER (QSYMIA) 7* 30 c* 0 04/06/2018 05/14/2018 Class: Print RX Route: ORAL Sig: Take 1 capsule by mouth once daily for 30 days. Disc: Course of therapy completed Disposition: Return in about 6 months (around 11/11/2018). Follow-up and Disposition History Recorded Encounter Status:Closed by FRANCK DE LA GARZA MD on 05/14/18 TSH Collected: 05/03/2018 Status: F Source: GREER 3:46 PM [facility] REPOSITORY TYPE CODE TESTS RESULT OUT OF RANGE REFERENCE UNITS LAB TSH 0.400-5.500 uU/mL TSH 0.595 Performed By: #### TSH, FT4, TG #### [facility] [address] [id number] FREE T4 Collected: 05/03/2018 Status: F Source: GREER 3:46 PM [facility] REPOSITORY TYPE CODE TESTS RESULT OUT OF RANGE REFERENCE UNITS LAB FT4 0.9-1.7 ng/dL Free T4 1.1 Performed By: #### TSH, FT4, TG #### [facility] [address] [place], [place] [address] THYROGLOBULIN Collected: 05/03/2018 Status: F Source: GREER 3:46 PM [facility] REPOSITORY TYPE CODE TESTS RESULT OUT OF REFERENCE UNITS RANGE LAB THYG 1.6-59.9 ng/mL Thyroglobulin Low <0.2 Result Comment: Test analyzed by the Siemens Immulite method LAB TGABS <14.4 IU/mL TG Antibody Screen 2.5 Performed By: #### TSH, FT4, TG #### [facility] [address], [place] [address] PROGRESS Observed: 04/22/2018 Status: COMPLETED Source: GREER 1:45 PM [facility] REPOSITORY HNO ID: [id number] Author: Hilary Judd Service: (none) Author Type: Physician Type: Progress Notes Filed: 04/23/2018 9:24 AM Note Text: Subjective: Amy Vega is a 57 year old female presents today regarding post surgical hypothyroidism and thyroid cancer follow up. She didn't follow up as previously instructed. History in brief, She had thyroid cancer that was found in 2003 when she was found to have a calcified nodule that was aspirated and she was found to have papillary cancer. There were no other foci of cancer. She recalls that the nodules were very small. She had total thyroidectomy done by Dr. Jesus Laws. ? Per Dr. Prajapati`s note from 08/22/14, the patient had Thyroid micro CA , papillary/follicular variant, treated with GAMING because of concerns at that time for using TNF alpha agents (Humira, then Etanercept) in a patient with thyroid CA. ? After the surgery, she was started on synthroid I switched her to Tirosint 150 mcg at her last appt in january 2017 She didn't follow up since that time Current treatment: Synthroid 125 mcg daily She used a pill box method and reports that she has not missed any doses She takes Synthroid on empty stomach and 2 apart from other medications General symptoms: Fatigue: yes, decreased energy- this is chronic Weight change: intentional weight loss, Qsymia is being tapered by PCP Appetite change: No Menstrual irregularities: hx of hysterectomy Change in bowel habits: no Temperature intolerance:increased sweating Dry skin: yes +hoarseness No neck fullness No history of malabsorption syndrome Reports diarrhea recently No bloating Celiac screen- no active disease REVIEW OF SYSTEMS: GENERAL: Fever - No Changes in weight - intentional weight loss NEUROLOGICAL: Numbness, tingling or sensation of pins and needles - No Headches-Yes HEAD, EYES, EARS, NOSE, AND THROAT: Changes in hearing - No Changes in vision - No CARDIOVASCULAR: Chest pain or pressure - No Palpitations - No RESPIRATORY: Cough - No Wheezing - No Shortness of breath - No GASTROINTESTINAL: Abdominal discomfort - No Nausea - No Vomiting - No EXTREMITY: Edema (swelling) - No Claudication-No MUSCULOSKELETAL: Muscle pain or ache - No Arthralgia-No Skin: Rash - No Erythema-No ENDOCRINE: Diabetes - No Thyroid disorder - +thyroid cancer and post surgical hypothyroidism PSYCHOLOGICAL: Depression - No Anxiety-No ALLERGIES: ALLERGIES Allergen Reactions - Amicar [Aminocaproi* Rash - Humira [Adalimumab] Hives welt at injection site MEDICATIONS: Current Outpatient Prescriptions on File Prior to Visit: guaiFENesin (MUCINEX) 600 mg 12 hr tablet Take 2 tablets by mouth twice daily. fluticasone (FLONASE) 50 mcg/actuation nasal spray Use 1 [place] in each nostril once daily. codeine-guaiFENesin (ROBITUSSIN AC) 10-100 mg/5 mL syrup Take 5-10 mL by mouth four times daily as needed for Cough. May cause drowsiness. HYDROcodone-acetaminophen (NORCO) 5-325 mg per tablet Take 1 tablet by mouth every 4 hours as needed. traMADol-acetaminophen (ULTRACET) 37.5-325 mg per tablet Take 1 tablet by mouth three times daily. cyclobenzaprine (FLEXERIL) 10 mg tablet Take 1 tablet by mouth three times daily as needed. hydroxychloroquine (PLAQUENIL) 200 mg tablet Take 1 tablet by mouth twice daily. gabapentin (NEURONTIN) 300 mg capsule Take 1 capsule by mouth three times daily. (Patient taking differently: Take 300 mg by mouth once daily.) Etanercept (ENBREL SURECLICK) 50 mg/mL (0.98 mL) pnij Inject 50 mg subcutaneously twice a week. phentermine-topiramate ER (QSYMIA) 15-92 mg 24 Hr Capsule Take 1 capsule by mouth once daily. BMI 28.96 levothyroxine (SYNTHROID) 137 mcg tablet Take 1 tablet by mouth once daily. triamcinolone acetonide (KENALOG) 0.5 % cream Apply to affected area. APPLY SMALL AMOUNT TO AFFECTED AREAS 2-3 TIMES PER DAY FOR RASH/ITCHING methotrexate sodium 25 mg/mL soln omeprazole (PRILOSEC) 20 mg capsule Take 1 capsule by mouth once daily. Cholecalciferol, Vitamin D3, 2,000 unit cap Take 1 tablet by mouth once daily. vitamin b complex (B COMPLEX 1) tab Take 1 tablet by mouth once daily. polyethylene glycol 3350 (MIRALAX) 17 gram/dose powder 17gm in 8oz daily until stools regular (for constipation) etanercept(ENBREL 25 MG SUB-Q KIT) As directed No current facility-administered medications on file prior to visit. PAST MEDICAL HISTORY: PAST MEDICAL HISTORY Diagnosis Date - Acquired hypothyroidism - Astigmatism, regular 12/22/2015 - Chronic kidney insufficiency, stage 3 (moderate) (HCC) 04/06/2018 - Endometriosis of uterus 2003 - GERD (gastroesophageal reflux disease) - HIATAL HERNIA 11/06/2006 - Hyperopia 12/22/2015 - Insomnia - Malaise and fatigue - Malignant tumor of thyroid gland (HCC) papillary - Myalgia and myositis, unspecified Fibromyalgia (myalgia and myositis) - Neck pain - Pain in wrist left - Paresthesia - Postoperative hypothyroidism - Postsurgical hypothyroidism - Presbyopia 12/22/2015 - Primary fibromyalgia syndrome - Psoriasis - 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 * Surgery (11/10/06): total thyroidectomy, Dr. Jesus Cordova. * GAMING (): treatment 100 mCi 131-Iodine, TSH=77.57 * Scan (): postRx scan, 2 spots in thyroid bed, else negative (): Thyrogen-stim 4.3 mCi 131-I total body scan, uptake right submandibuar area (inflamed salivary gland?), but otherwise no evidence for disease local or metastatic * Ultrasound (): no suspicious adenopathy along great vessels or in lateral neck on either side. No masses in thyroid bed. (11/09/09): no suspicious adenopathy along great vessels or in lateral neck on either side. No masses in thyroid bed. (01/31/11): no suspicious adenopathy along great vessels or in lateral neck on either side. No masses in thyroid bed. * Thyroglobulin (): TG=0.5 ng/ml, Ab 6.1 IU/L (0-14), TSH=77.57 (): TG <0.2 ng/ml, Ab neg (): TG <0.2 ng/ml, Ab neg (): TG <0.2 ng/ml, Ab neg, Thyrogen stim (04/25/ - Thyroid cancer (HCC) 2004 removed, radioactive iodine ablation - Vitamin D deficiency PHYSICAL EXAM: BP 124/78 (BP Site: Left Arm, BP Position: Sitting, BP Cuff Size: Regular Adult) Pulse 83 Ht 168 cm (5' 6.14) Wt 71.2 kg (157 lb) SpO2 100% BMI 25.23 kg/m? Last 3 Encounter Wt Readings: Date: Wt: 10/12/2016 78.5 kg (173 lb) 09/18/2016 79.4 kg (175 lb) 09/04/2016 81.3 kg (179 lb 3.2 oz) General: Alert and oriented x3, no acute distress Eyes: Extraocular motions intact,, Anicteric sclera. Pupils are equally round. Oral: Mucous membranes moist, no erythema Neck supple, no cervical lymphadenopathy Thyroid: no palpable thyroid tissue Chest:Lungs clear to auscultation. No wheezing, rhonchi, rales CV:normal, Regular rate and rhythm, no murmurs, clicks, or gallops. Abdominal:Abdomen soft, non-tender. Bowel sounds normal. No masses, organomegaly Neuro: Gait normal. Sensation grossly intact. Normal DTR's at patella Musculoskeletal: Muscular strength intact, No joint swelling, deformity, or tenderness Extremities without edema, Good peripheral pulses Skin: no rashes/ erythema LAB: Ref. Range 02/20/2015 09:26 11/08/2015 12:08 10/10/2016 18:55 01/05/2017 12:23 10/26/2017 12:33 Free T4 Latest Ref Range: 0.9 - 1.7 ng/dL 1.0 0.5 (L) TSH Latest Ref Range: 0.400 - 5.500 uU/mL 0.266 (L) 2.570 11.360 (H) 33.360 (H) 0.055 (L) Vitamin D 25 Hydroxy Latest Ref Range: 31.0 - 80.0 ng/mL 31.3 Thyroglobulin Latest Ref Range: 0.8 - 49.0 ng/mL 0.4 (L) ASSESSMENT/PLAN: 1) Thyroid micro CA , papillary/follicular variant: S/p total thyroidectomy and GAMING Per 's note, she was treated with GAMING because of concerns at that time for using TNF alpha agents (Humira, then Etanercept) in a patient with thyroid CA. last thyroglobulin level was low No evidence of recurrence Update a Tg level 2) Post surgical hypothyroidism: biochemically euthyroid Current synthroid dose is higher than anticipated weight based dose She reports compliance with Synthroid Celiac panel- no evidence of active disease Update thyroid function test 3) Hoarseness: Obtain a neck US If it comes back normal, then will refer to ENT I will send patient a message in my chart once the lab results become available Follow up to be determined Hilary Judd MD 04/22/18 CNOV Observed: 04/22/2018 Status: COMPLETED Source: GREER 1:25 PM [facility] REPOSITORY Office Visit (ENDMED) AMY VEGA V ([id number]) 1960 F Date Time Provider Department 04/22/18 1:25 PM HILARY JUDD During your visit today, we recorded the following information about you: Pulse Blood pressure Weight Height 83/minute 124/78 71.2 kg 1.68 m Hilary Judd MD 04/23/2018 9:24 AM Signed Subjective: Amy Vega is a 57 year old female presents today regarding post surgical hypothyroidism and thyroid cancer follow up. She didn't follow up as previously instructed. History in brief, She had thyroid cancer that was found in 2003 when she was found to have a calcified nodule that was aspirated and she was found to have papillary cancer. There were no other foci of cancer. She recalls that the nodules were very small. She had total thyroidectomy done by Dr. Jesus Laws. ? Per Dr. Prajapati`s note from 08/22/14, the patient had Thyroid micro CA , papillary/follicular variant, treated with GAMING because of concerns at that time for using TNF alpha agents (Humira, then Etanercept) in a patient with thyroid CA. ? After the surgery, she was started on synthroid I switched her to Tirosint 150 mcg at her last appt in january 2017 She didn't follow up since that time Current treatment: Synthroid 125 mcg daily She used a pill box method and reports that she has not missed any doses She takes Synthroid on empty stomach and 2 apart from other medications General symptoms: Fatigue: yes, decreased energy- this is chronic Weight change: intentional weight loss, Qsymia is being tapered by PCP Appetite change: No Menstrual irregularities: hx of hysterectomy Change in bowel habits: no Temperature intolerance:increased sweating Dry skin: yes +hoarseness No neck fullness No history of malabsorption syndrome Reports diarrhea recently No bloating Celiac screen- no active disease REVIEW OF SYSTEMS: GENERAL: Fever - No Changes in weight - intentional weight loss NEUROLOGICAL: Numbness, tingling or sensation of pins and needles - No Headches-Yes HEAD, EYES, EARS, NOSE, AND THROAT: Changes in hearing - No Changes in vision - No CARDIOVASCULAR: Chest pain or pressure - No Palpitations - No RESPIRATORY: Cough - No Wheezing - No Shortness of breath - No GASTROINTESTINAL: Abdominal discomfort - No Nausea - No Vomiting - No EXTREMITY: Edema (swelling) - No Claudication-No MUSCULOSKELETAL: Muscle pain or ache - No Arthralgia-No Skin: Rash - No Erythema-No ENDOCRINE: Diabetes - No Thyroid disorder - +thyroid cancer and post surgical hypothyroidism PSYCHOLOGICAL: Depression - No Anxiety-No ALLERGIES: ALLERGIES Allergen Reactions - Amicar [Aminocaproi* Rash - Humira [Adalimumab] Hives welt at injection site MEDICATIONS: Current Outpatient Prescriptions on File Prior to Visit: guaiFENesin (MUCINEX) 600 mg 12 hr tablet Take 2 tablets by mouth twice daily. fluticasone (FLONASE) 50 mcg/actuation nasal spray Use 1 [place] in each nostril once daily. codeine-guaiFENesin (ROBITUSSIN AC) 10-100 mg/5 mL syrup Take 5-10 mL by mouth four times daily as needed for Cough. May cause drowsiness. HYDROcodone-acetaminophen (NORCO) 5-325 mg per tablet Take 1 tablet by mouth every 4 hours as needed. traMADol-acetaminophen (ULTRACET) 37.5-325 mg per tablet Take 1 tablet by mouth three times daily. cyclobenzaprine (FLEXERIL) 10 mg tablet Take 1 tablet by mouth three times daily as needed. hydroxychloroquine (PLAQUENIL) 200 mg tablet Take 1 tablet by mouth twice daily. gabapentin (NEURONTIN) 300 mg capsule Take 1 capsule by mouth three times daily. (Patient taking differently: Take 300 mg by mouth once daily.) Etanercept (ENBREL SURECLICK) 50 mg/mL (0.98 mL) pnij Inject 50 mg subcutaneously twice a week. phentermine-topiramate ER (QSYMIA) 15-92 mg 24 Hr Capsule Take 1 capsule by mouth once daily. BMI 28.96 levothyroxine (SYNTHROID) 137 mcg tablet Take 1 tablet by mouth once daily. triamcinolone acetonide (KENALOG) 0.5 % cream Apply to affected area. APPLY SMALL AMOUNT TO AFFECTED AREAS 2-3 TIMES PER DAY FOR RASH/ITCHING methotrexate sodium 25 mg/mL soln omeprazole (PRILOSEC) 20 mg capsule Take 1 capsule by mouth once daily. Cholecalciferol, Vitamin D3, 2,000 unit cap Take 1 tablet by mouth once daily. vitamin b complex (B COMPLEX 1) tab Take 1 tablet by mouth once daily. polyethylene glycol 3350 (MIRALAX) 17 gram/dose powder 17gm in 8oz daily until stools regular (for constipation) etanercept(ENBREL 25 MG SUB-Q KIT) As directed No current facility-administered medications on file prior to visit. PAST MEDICAL HISTORY: PAST MEDICAL HISTORY Diagnosis Date - Acquired hypothyroidism - Astigmatism, regular 12/22/2015 - Chronic kidney insufficiency, stage 3 (moderate) ([facility]) 04/06/2018 - Endometriosis of uterus 2003 - GERD (gastroesophageal reflux disease) - HIATAL HERNIA 11/06/2006 - Hyperopia 12/22/2015 - Insomnia - Malaise and fatigue - Malignant tumor of thyroid gland (HCC) papillary - Myalgia and myositis, unspecified Fibromyalgia (myalgia and myositis) - Neck pain - Pain in wrist left - Paresthesia - Postoperative hypothyroidism - Postsurgical hypothyroidism - Presbyopia 12/22/2015 - Primary fibromyalgia syndrome - Psoriasis - 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 * Surgery (11/10/06): total thyroidectomy, Dr. Jesus Cordova. * GAMING (): treatment 100 mCi 131-Iodine, TSH=77.57 * Scan (): postRx scan, 2 spots in thyroid bed, else negative (): Thyrogen- stim 4.3 mCi 131-I total body scan, uptake right submandibuar area (inflamed salivary gland?), but otherwise no evidence for disease local or metastatic * Ultrasound (): no suspicious adenopathy along great vessels or in lateral neck on either side. No masses in thyroid bed. (11/09/09): no suspicious adenopathy along great vessels or in lateral neck on either side. No masses in thyroid bed. (01/31/11): no suspicious adenopathy along great vessels or in lateral neck on either side. No masses in thyroid bed. * Thyroglobulin (): TG=0.5 ng/ml, Ab 6.1 IU/L (0-14), TSH=77.57 (): TG <0.2 ng/ml, Ab neg (): TG <0.2 ng/ml, Ab neg (): TG <0.2 ng/ml, Ab neg, Thyrogen stim (04/25/ - Thyroid cancer (HCC) 2004 removed, radioactive iodine ablation - Vitamin D deficiency PHYSICAL EXAM: BP 124/78 (BP Site: Left Arm, BP Position: Sitting, BP Cuff Size: Regular Adult) Pulse 83 Ht 168 cm (5' 6.14) Wt 71.2 kg (157 lb) SpO2 100% BMI 25.23 kg/m? Last 3 Encounter Wt Readings: Date: Wt: 10/12/2016 78.5 kg (173 lb) 09/18/2016 79.4 kg (175 lb) 09/04/2016 81.3 kg (179 lb 3.2 oz) General: Alert and oriented x3, no acute distress Eyes: Extraocular motions intact,, Anicteric sclera. Pupils are equally round. Oral: Mucous membranes moist, no erythema Neck supple, no cervical lymphadenopathy Thyroid: no palpable thyroid tissue Chest:Lungs clear to auscultation. No wheezing, rhonchi, rales CV:normal, Regular rate and rhythm, no murmurs, clicks, or gallops. Abdominal:Abdomen soft, non-tender. Bowel sounds normal. No masses, organomegaly Neuro: Gait normal. Sensation grossly intact. Normal DTR's at patella Musculoskeletal: Muscular strength intact, No joint swelling, deformity, or tenderness Extremities without edema, Good peripheral pulses Skin: no rashes/ erythema LAB: Ref. Range 02/20/2015 09:26 11/08/2015 12:08 10/10/2016 18:55 01/05/2017 12:23 10/26/2017 12:33 Free T4 Latest Ref Range: 0.9 - 1.7 ng/dL 1.0 0.5 (L) TSH Latest Ref Range: 0.400 - 5.500 uU/mL 0.266 (L) 2.570 11.360 (H) 33.360 (H) 0.055 (L) Vitamin D 25 Hydroxy Latest Ref Range: 31.0 - 80.0 ng/mL 31.3 Thyroglobulin Latest Ref Range: 0.8 - 49.0 ng/mL 0.4 (L) ASSESSMENT/PLAN: 1) Thyroid micro CA , papillary/follicular variant: S/p total thyroidectomy and GAMING Per 's note, she was treated with GAMING because of concerns at that time for using TNF alpha agents (Humira, then Etanercept) in a patient with thyroid CA. last thyroglobulin level was low No evidence of recurrence Update a Tg level 2) Post surgical hypothyroidism: biochemically euthyroid Current synthroid dose is higher than anticipated weight based dose She reports compliance with Synthroid Celiac panel- no evidence of active disease Update thyroid function test 3) Hoarseness: Obtain a neck US If it comes back normal, then will refer to ENT I will send patient a message in my chart once the lab results become available Follow up to be determined Hilary Judd MD 04/22/18 Hilary Judd MD 04/22/2018 1:59 PM Addendum Get thyroid labs drawn Schedule the neck ultrasound I will send you a message in my chart once the lab results become available If the ultrasound is normal, then see an ENT Follow up to be determined Referring Provider: SELF [[id number]] Allergies As of Date: 04/22/2018 Noted Allergy Reaction AMICAR (AMINOCAPROIC ACID) 06/20/2005 2 - Rash HUMIRA (ADALIMUMAB) 11/20/2015 4 - Hives Comments: welt at injection site Date Reviewed: 04/22/2018 Reviewed by: Ema Peace Ma - Fully Assessed Reason for Visit: Thyroid Problem [110] Primary Visit Diagnosis:Thyroid cancer (HCC) [C73] Other Visit Diagnoses:Postoperative hypothyroidism [E89.0] Hoarseness of voice [R49.0] Order(s):TSH BLD [SQTSH] Order #: [id number] FUTURE T4 FREE/FREE THYROX [SQFT4] Order #: [id number] FUTURE THYROGLOBULIN BLD [SQTG] Order #: [id number] FUTURE US THYROID/PARATHYROID [4575101] Order #: [id number] FUTURE Prescriptions as of 04/22/2018 Sig: PHENTERMINE 7.5 MG-TOPIRAMATE* Take 1 capsule by mouth once * GABAPENTIN 300 MG CAPSULE Take 3 capsules by mouth once* CYCLOBENZAPRINE 10 MG TABLET Take 1 tablet by mouth twice * PREDNISONE 10 MG TABLET Take 4 tabs daily then follow* HYDROXYCHLOROQUINE 200 MG TAB* Take 1 tablet by mouth twice * TRAMADOL 37.5 MG-ACETAMINOPHE* Take 1 tablet by mouth three * LEVOTHYROXINE 125 MCG TABLET Take 1 tablet by mouth once d* ETANERCEPT 50 MG/ML (0.98 ML)* Inject 50 mg subcutaneously o* TRIAMCINOLONE ACETONIDE 0.5 %* Apply to affected area. APPL* OMEPRAZOLE 20 MG CAPSULE,FALGUNI* Take 1 capsule by mouth once * CHOLECALCIFEROL (VITAMIN D3) * Take 1 tablet by mouth once d* VITAMIN B COMPLEX TABLET Take 1 tablet by mouth once d* POLYETHYLENE GLYCOL 3350 17 G* 17gm in 8oz daily until stool* Problem List As Of Date 04/22/2018 Noted Resolved Myalgia and myositis, unspecified [[id number]] INVALID FOR*05/28/2016 GASTRITIS ANTRAL( W/O Hemorrhage) [K29.60] INVALID FOR*12/27/2014 Acute gastritis without mention of hemorrhage [*INVALID FOR*12/27/2014 More... Pneumonia, organism unspecified [J18.9] INVALID FOR*12/27/2014 Vitamin D deficiency [E55.9] INVALID FOR* Left axillary pain [M79.622] INVALID FOR*05/28/2016 Adenopathy [R59.1] INVALID FOR*05/28/2016 Kidney stone [N20.0] INVALID FOR*05/28/2016 Dysphagia [R13.10] 05/28/2016 Overweight (BMI 25.0-29.9) [E66.3] INVALID FOR* Esophageal reflux [K21.9] INVALID FOR*03/15/2015 Chronic bilateral low back pain with sciatica [*INVALID FOR* Chronic conjunctivitis of both eyes [H10.403] INVALID FOR*05/28/2016 Left carpal tunnel syndrome [G56.02] INVALID FOR*04/06/2018 GERD (gastroesophageal reflux disease) [K21.9] INVALID FOR* Postoperative hypothyroidism [E89.0] INVALID FOR* Right carpal tunnel syndrome [G56.01] INVALID FOR*04/06/2018 Thyroid cancer (HCC) [C73] INVALID FOR* More... Sjogren's syndrome (HCC) [M35.00] More... RA (rheumatoid arthritis) (HCC) [M06.9] More... 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 Primary fibromyalgia syndrome [M79.7] Neck pain [M54.2] Insomnia [G47.00] Chronic kidney insufficiency, stage 3 (moderate*INVALID FOR* Other instructions from your clinician: Get thyroid labs drawn Schedule the neck ultrasound I will send you a message in my chart once the lab results become available If the ultrasound is normal, then see an ENT Follow up to be determined Encounter Status:Closed by HILARY JUDD DO on 04/23/18 AARON Observed: 04/08/2018 Status: COMPLETED Source: [facility] 12:00 AM CLINIC OTHER CAMPUS REPOSITORY Telephone (AGRHEUHWN) AMY VEGA Yuliya ([id number]) 1960 F Date Time Provider Department 04/08/18 PROMISE HOANG During your visit today, we recorded the following information about you: Allergies As of Date: 04/08/2018 Noted Allergy Reaction AMICAR (AMINOCAPROIC ACID) 06/20/2005 2 - Rash HUMIRA (ADALIMUMAB) 11/20/2015 4 - Hives Comments: welt at injection site Date Reviewed: 04/06/2018 Reviewed by: Debbie Perez LPN - Fully Assessed Reason for Visit: Medication Authorization [1699] Cmt: APPROVED SHAY [id number] 04/13/18-10/14/18 [facility] Reason For Visit History Recorded Prescriptions as of 04/08/2018 Sig: PHENTERMINE 7.5 MG-TOPIRAMATE* Take 1 capsule by mouth once * DOXYCYCLINE HYCLATE 100 MG TA* Take 1 tablet by mouth twice * GABAPENTIN 300 MG CAPSULE Take 3 capsules by mouth once* CYCLOBENZAPRINE 10 MG TABLET Take 1 tablet by mouth twice * PREDNISONE 10 MG TABLET Take 4 tabs daily then follow* HYDROXYCHLOROQUINE 200 MG TAB* Take 1 tablet by mouth twice * TRAMADOL 37.5 MG-ACETAMINOPHE* Take 1 tablet by mouth three * LEVOTHYROXINE 125 MCG TABLET Take 1 tablet by mouth once d* ETANERCEPT 50 MG/ML (0.98 ML)* Inject 50 mg subcutaneously o* TRIAMCINOLONE ACETONIDE 0.5 %* Apply to affected area. APPL* OMEPRAZOLE 20 MG CAPSULE,FALGUNI* Take 1 capsule by mouth once * CHOLECALCIFEROL (VITAMIN D3) * Take 1 tablet by mouth once d* VITAMIN B COMPLEX TABLET Take 1 tablet by mouth once d* POLYETHYLENE GLYCOL 3350 17 G* 17gm in 8oz daily until stool* Problem List As Of Date 04/08/2018 Noted Resolved Myalgia and myositis, unspecified [[id number]] INVALID FOR*05/28/2016 GASTRITIS ANTRAL( W/O Hemorrhage) [K29.60] INVALID FOR*12/27/2014 Acute gastritis without mention of hemorrhage [*INVALID FOR*12/27/2014 More... Pneumonia, organism unspecified [J18.9] INVALID FOR*12/27/2014 Vitamin D deficiency [E55.9] INVALID FOR* Left axillary pain [M79.622] INVALID FOR*05/28/2016 Adenopathy [R59.1] INVALID FOR*05/28/2016 Kidney stone [N20.0] INVALID FOR*05/28/2016 Dysphagia [R13.10] 05/28/2016 Overweight (BMI 25.0-29.9) [E66.3] INVALID FOR* Esophageal reflux [K21.9] INVALID FOR*03/15/2015 Chronic bilateral low back pain with sciatica [*INVALID FOR* Chronic conjunctivitis of both eyes [H10.403] INVALID FOR*05/28/2016 Left carpal tunnel syndrome [G56.02] INVALID FOR*04/06/2018 GERD (gastroesophageal reflux disease) [K21.9] INVALID FOR* Postoperative hypothyroidism [E89.0] INVALID FOR* Right carpal tunnel syndrome [G56.01] INVALID FOR*04/06/2018 Thyroid cancer (HCC) [C73] INVALID FOR* More... Sjogren's syndrome (HCC) [M35.00] More... RA (rheumatoid arthritis) (HCC) [M06.9] More... 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 Primary fibromyalgia syndrome [M79.7] Neck pain [M54.2] Insomnia [G47.00] Chronic kidney insufficiency, stage 3 (moderate*INVALID FOR* Encounter Status:Closed by JEFFREY INGRAM CMA on 04/08/18 URINALYSIS WITH Collected: 04/06/2018 Status: F Source: [facility] 3:18 PM CLINIC MAIN CAMPUS REPOSITORY TYPE CODE TESTS RESULT OUT OF RANGE REFERENCE UNITS LAB UCOL Yellow Color Yellow LAB [facility] Clear Clarity Abnormal Cloudy Alert LAB UGLUC Negative mg/dL Glucose, Urine Negative LAB UBIL Negative Bilirubin, Urine Negative LAB UKET Negative Ketones, Urine Negative LAB USPG 1.005-1.030 Specific [place], Ur 1.027 LAB UHGB Negative Hemoglobin/Blood, Negative Ur LAB UPH 4.5-8.0 pH 5.0 LAB UPROT Negative mg/dL Protein, Urine Negative LAB UUROB Normal Abnormal Urobilinogen Elevated Alert LAB UNITR Negative Nitrites Negative LAB ULKEST Negative Leukest Negative LAB UCOM Comments SEE COMMENT Result Comment: N/A LAB UMCOM Urine SEE Rafa Comment COMMENT Result Comment: Rechecked by light microscopy. LAB UWBC 0-5 /HPF WBC 0-5 LAB URBC 0-3 /HPF RBC 0-3 LAB UEPI /HPF Epithelial SEE Cells COMMENT Result Comment: Few Squamous Epithelial Cells LAB UCRYS 0 /HPF Abnormal Alert Crystals SEE COMMENT Result Comment: Moderate Calcium Oxalate Crystal Performed By: #### UAWMIC #### [facility] [address] [place], [place] [address] BASIC METABOLIC PANL Collected: 04/06/2018 Status: F Source: [facility] 3:14 PM [facility] REPOSITORY TYPE CODE TESTS RESULT OUT OF REFERENCE UNITS RANGE LAB GLU 74-99 mg/dL Glucose 76 Result Comment: The [place] [employer] (ADA) provides guidance for cutoff values for fasting glucose and random glucose. The ADA defines fasting as no caloric intake for at least 8 hours. Fas ting plasma glucose results between 100 to 125 mg/dL indicate increased risk for diabetes (prediabetes). Fasting plasma glucose results greater than or equal to 126 mg/dL meet the criteria for diagnosis of diabetes. In the absence of unequivocal hyperglycemia, results should be confirmed by repeat testing. In a patient with classic symptoms of hyperglycemia or hyperglycemic crisis, random plasma glucose results greater than or equal to 200 mg/dL meet the criteria for diagnosis of diabetes. Reference: Standards of Medical Care in Diabetes 2016, [place] [employer]. Diabetes Care. 2016.39(Suppl 1). LAB BUN 7-21 mg/dL BUN 17 LAB CRET 0.58-0.96 mg/dL Creatinine High 1.04 LAB NA 136-144 mmol/L Sodium 141 LAB K 3.7-5.1 mmol/L Potassium 3.9 LAB CL 97-105 mmol/L Chloride 103 LAB CO2 22-30 mmol/L CO2 25 LAB AGAP 9-18 mmol/L Anion Gap 13 LAB CA 8.5-10.2 mg/dL Calcium, Total 9.0 LAB GFRAA eGFR- Amer. >60 LAB GFRNAA . eGFR-All Other Races 55 Result Comment: eGFR (Estimated GFR) Units of measure: mL/min/1.73 meters squared eGFR is derived from the reexpressed MDRD Study equation using the following parameters: serum creatinine, age, gender and race. The creatinine assay has been calibrated to be traceable to IDMS. An eGFR <60 mL/min/1.73m2 for >3 months is consistent with chronic kidney disease. Refer to KDOQI guidelines for clinical interpretation. In patients with unstable renal function, e.g. those with acute kidney injury, the eGFR may not accurately reflect actual GFR. Performed By: #### BMP, AHCV1B #### [facility] [address] [place], [place] [address] HEP C AB IA W/CONF Collected: 04/06/2018 Status: F Source: [facility] 3:14 PM [facility] REPOSITORY TYPE CODE TESTS RESULT OUT OF REFERENCE UNITS RANGE LAB AHCV Negative Hepatitis C Ab Negative IA Performed By: #### BMP, AHCV1B #### [facility] [address] [place], [place] [address] PROGRESS Observed: 04/06/2018 Status: COMPLETED Source: [facility] 2:48 PM [facility] REPOSITORY HNO ID: [id number] Author: Franck De La Garza Service: (none) Author Type: Physician Type: Progress Notes Filed: 04/06/2018 3:04 PM Note Text: This note was created using eXelateriter. Subjective Patient presents with: Recheck Derm Problem: right thumb lump, redness x 1 month Throat Problem: 1 month HPI: Amy Vega was supposed to establish but was late. She needed refill of Qsymia, used for maintenance of weight loss. Her highest weight was 190 pounds, BMI 29.75. She was started on medication to help her joint pains. She had no other obesity related co-morbidities. She was started on phentermine in 2012, then maintained on Qsymia since 2013. She complained of hoarseness for one month. She also had a lump on her right thumb for one month, unclear cause, with mild discomfort. She tried puncturing this but was unable to obtain any significant drainage. ACTIVE PROBLEM LIST Vitamin D Deficiency Overweight (Bmi 25.0-29.9) Chronic Bilateral Low Back Pain With Sciatica Gerd (Gastroesophageal Reflux Disease) Postoperative Hypothyroidism Thyroid Cancer (Hcc) Sjogren's Syndrome (Hcc) Ra (Rheumatoid Arthritis) (Hcc) Psoriasis With Arthropathy (Hcc) Primary Fibromyalgia Syndrome Neck Pain Insomnia Chronic Kidney Insufficiency, Stage 3 (Moderate) (Formerly [facility]) Current Outpatient Prescriptions: gabapentin (NEURONTIN) 300 mg capsule Take 3 capsules by mouth once daily for 90 days. cyclobenzaprine (FLEXERIL) 10 mg tablet Take 1 tablet by mouth twice daily as needed. predniSONE (DELTASONE) 10 mg tablet Take 4 tabs daily then follow taper instructions hydroxychloroquine (PLAQUENIL) 200 mg tablet Take 1 tablet by mouth twice daily. traMADol-acetaminophen (ULTRACET) 37.5-325 mg per tablet Take 1 tablet by mouth three times daily for 184 days. levothyroxine (SYNTHROID) 125 mcg tablet Take 1 tablet by mouth once daily. Etanercept (ENBREL SURECLICK) 50 mg/mL (0.98 mL) pnij Inject 50 mg subcutaneously once each week. triamcinolone acetonide (KENALOG) 0.5 % cream Apply to affected area. APPLY SMALL AMOUNT TO AFFECTED AREAS 2-3 TIMES PER DAY FOR RASH/ITCHING omeprazole (PRILOSEC) 20 mg capsule Take 1 capsule by mouth once daily. Cholecalciferol, Vitamin D3, 2,000 unit cap Take 1 tablet by mouth once daily. vitamin b complex (B COMPLEX 1) tab Take 1 tablet by mouth once daily. polyethylene glycol 3350 (MIRALAX) 17 gram/dose powder 17gm in 8oz daily until stools regular (for constipation) phentermine-topiramate ER (QSYMIA) 7.5-46 mg 24 Hr Capsule Take 1 capsule by mouth once daily for 30 days. doxycycline (VIBRA-TABS) 100 mg tablet Take 1 tablet by mouth twice daily for 7 days. No current facility-administered medications for this visit. Review of Systems Constitutional: Negative. HENT: Positive for nosebleeds and voice change. Negative for postnasal drip, sinus pain and sore throat. Chronic right sided nosebleeds, never cauterized or biopsied. Respiratory: Negative. Cardiovascular: Negative. Genitourinary: Negative. Musculoskeletal: Positive for joint swelling. Objective BP 112/62 (BP Site: Right Arm, BP Position: Sitting, BP Cuff Size: Regular Adult) Pulse 64 Temp 36.4 ?C (97.5 ?F) (Left Tympanic) Resp 12 Ht 166.4 cm (5' 5.5) Wt 69.3 kg (152 lb 12.8 oz) BMI 25.04 kg/m? Physical Exam Constitutional: No distress. HENT: Right Ear: External ear normal. Left Ear: External ear normal. Nose: Septal deviation present. Epistaxis is observed. Mouth/Throat: Oropharynx is clear and moist. Raw mucosa, right side. Cardiovascular: Normal heart sounds. Pulmonary/Chest: Breath sounds normal. Musculoskeletal: She exhibits no edema. Lymphadenopathy: She has no cervical adenopathy. Skin: Erythematous non tender firm cyst of the right dorsal DIP thumb with central punctum, no drainage, 1 cm diameter. Assessment and Plan 1. Hoarseness of voice - ICD9: 784.42, ICD10: R49.0 (primary diagnosis) Refer to Dr. Vishal Hernández. - CONSULT TO ENT 2. Overweight (BMI 25.0-29.9) - ICD9: 278.02, ICD10: E66.3 Discussed FDA approved indication for medication, and her ongoing off label use. We agreed to reevaluate need, and start coming off medication. We agreed to wean. Dose decreased. Follow up next month for further dose reduction. Continue lifestyle changes. - PHENTERMINE 7.5 MG-TOPIRAMATE ER 46 MG CAPSULE,EXT.RELEASE 24HR MPHASE 3. Breast cancer screening by mammogram - ICD9: V76.12, ICD10: Z12.31 Do mammogram. 4. Need for hepatitis C screening test - ICD9: V73.89, ICD10: Z11.59 Do lab ordered. 5. Chronic kidney insufficiency, stage 3 (moderate) (HCC) - ICD9: 585.3, ICD10: N18.3 Discussed this new diagnosis based on review of her labs. - BASIC METABOLIC PNL - URINALYSIS WITH MICROSCOPIC 6. Right-sided epistaxis - ICD9: 784.7, ICD10: R04.[address] Vishal Hernández. - CONSULT TO ENT 7. Skin cyst - ICD9: 706.2, ICD10: L72.9 Right thumb DIP, possibly an infected cyst. Refer to orthopedics if not better with antibiotic. - DOXYCYCLINE HYCLATE 100 MG TABLET Franck De La Garza MD CNOV Observed: 04/06/2018 Status: COMPLETED Source: [facility] 1:20 PM [facility] REPOSITORY Office Visit (INTMWS) AMY VEGA V ([id number]) 1960 F Date Time Provider Department 04/06/18 1:20 PM FRANCK DE LA GARZA INTMWS During your visit today, we recorded the following information about you: Temperature Pulse Respiration Blood pressure 97.5 degrees 64/minute 12/minute 112/62 Weight Height 69.3 kg 1.664 m Franck De La Garza MD 04/06/2018 3:04 PM Signed This note was created using eXelateriter. Subjective Patient presents with: Recheck Derm Problem: right thumb lump, redness x 1 month Throat Problem: 1 month HPI: Amy Vega was supposed to establish but was late. She needed refill of Qsymia, used for maintenance of weight loss. Her highest weight was 190 pounds, BMI 29.75. She was started on medication to help her joint pains. She had no other obesity related co-morbidities. She was started on phentermine in 2012, then maintained on Qsymia since 2013. She complained of hoarseness for one month. She also had a lump on her right thumb for one month, unclear cause, with mild discomfort. She tried puncturing this but was unable to obtain any significant drainage. ACTIVE PROBLEM LIST Vitamin D Deficiency Overweight (Bmi 25.0-29.9) Chronic Bilateral Low Back Pain With Sciatica Gerd (Gastroesophageal Reflux Disease) Postoperative Hypothyroidism Thyroid Cancer (Hcc) Sjogren's Syndrome (Hcc) Ra (Rheumatoid Arthritis) (Hcc) Psoriasis With Arthropathy (Hcc) Primary Fibromyalgia Syndrome Neck Pain Insomnia Chronic Kidney Insufficiency, Stage 3 (Moderate) (Formerly [facility]) Current Outpatient Prescriptions: gabapentin (NEURONTIN) 300 mg capsule Take 3 capsules by mouth once daily for 90 days. cyclobenzaprine (FLEXERIL) 10 mg tablet Take 1 tablet by mouth twice daily as needed. predniSONE (DELTASONE) 10 mg tablet Take 4 tabs daily then follow taper instructions hydroxychloroquine (PLAQUENIL) 200 mg tablet Take 1 tablet by mouth twice daily. traMADol-acetaminophen (ULTRACET) 37.5-325 mg per tablet Take 1 tablet by mouth three times daily for 184 days. levothyroxine (SYNTHROID) 125 mcg tablet Take 1 tablet by mouth once daily. Etanercept (ENBREL SURECLICK) 50 mg/mL (0.98 mL) pnij Inject 50 mg subcutaneously once each week. triamcinolone acetonide (KENALOG) 0.5 % cream Apply to affected area. APPLY SMALL AMOUNT TO AFFECTED AREAS 2-3 TIMES PER DAY FOR RASH/ITCHING omeprazole (PRILOSEC) 20 mg capsule Take 1 capsule by mouth once daily. Cholecalciferol, Vitamin D3, 2,000 unit cap Take 1 tablet by mouth once daily. vitamin b complex (B COMPLEX 1) tab Take 1 tablet by mouth once daily. polyethylene glycol 3350 (MIRALAX) 17 gram/dose powder 17gm in 8oz daily until stools regular (for constipation) phentermine-topiramate ER (QSYMIA) 7.5-46 mg 24 Hr Capsule Take 1 capsule by mouth once daily for 30 days. doxycycline (VIBRA-TABS) 100 mg tablet Take 1 tablet by mouth twice daily for 7 days. No current facility-administered medications for this visit. Review of Systems Constitutional: Negative. HENT: Positive for nosebleeds and voice change. Negative for postnasal drip, sinus pain and sore throat. Chronic right sided nosebleeds, never cauterized or biopsied. Respiratory: Negative. Cardiovascular: Negative. Genitourinary: Negative. Musculoskeletal: Positive for joint swelling. Objective BP 112/62 (BP Site: Right Arm, BP Position: Sitting, BP Cuff Size: Regular Adult) Pulse 64 Temp 36.4 ?C (97.5 ?F) (Left Tympanic) Resp 12 Ht 166.4 cm (5' 5.5) Wt 69.3 kg (152 lb 12.8 oz) BMI 25.04 kg/m? Physical Exam Constitutional: No distress. HENT: Right Ear: External ear normal. Left Ear: External ear normal. Nose: Septal deviation present. Epistaxis is observed. Mouth/Throat: Oropharynx is clear and moist. Raw mucosa, right side. Cardiovascular: Normal heart sounds. Pulmonary/Chest: Breath sounds normal. Musculoskeletal: She exhibits no edema. Lymphadenopathy: She has no cervical adenopathy. Skin: Erythematous non tender firm cyst of the right dorsal DIP thumb with central punctum, no drainage, 1 cm diameter. Assessment and Plan 1. Hoarseness of voice - ICD9: 784.42, ICD10: R49.0 (primary diagnosis) Refer to Dr. Vishal Hernández. - CONSULT TO ENT 2. Overweight (BMI 25.0-29.9) - ICD9: 278.02, ICD10: E66.3 Discussed FDA approved indication for medication, and her ongoing off label use. We agreed to reevaluate need, and start coming off medication. We agreed to wean. Dose decreased. Follow up next month for further dose reduction. Continue lifestyle changes. - PHENTERMINE 7.5 MG-TOPIRAMATE ER 46 MG CAPSULE,EXT.RELEASE 24HR MPHASE 3. Breast cancer screening by mammogram - ICD9: V76.12, ICD10: Z12.31 Do mammogram. 4. Need for hepatitis C screening test - ICD9: V73.89, ICD10: Z11.59 Do lab ordered. 5. Chronic kidney insufficiency, stage 3 (moderate) (HCC) - ICD9: 585.3, ICD10: N18.3 Discussed this new diagnosis based on review of her labs. - BASIC METABOLIC PNL - URINALYSIS WITH MICROSCOPIC 6. Right-sided epistaxis - ICD9: 784.7, ICD10: R04.[address]er to [address] Vishal Hernández. - CONSULT TO ENT 7. Skin cyst - ICD9: 706.2, ICD10: L72.9 Right thumb DIP, possibly an infected cyst. Refer to orthopedics if not better with antibiotic. - DOXYCYCLINE HYCLATE 100 MG TABLET Franck De La Garza MD Referring Provider: FRANCK DE LA GARZA [[id number]] Allergies As of Date: 04/06/2018 Noted Allergy Reaction AMICAR (AMINOCAPROIC ACID) 06/20/2005 2 - Rash HUMIRA (ADALIMUMAB) 11/20/2015 4 - Hives Comments: welt at injection site Date Reviewed: 04/06/2018 Reviewed by: Debbie Perez LPN - Fully Assessed Reason for Visit: Recheck [92] Derm Problem [33] Cmt: right thumb lump, redness x 1 month Throat Problem [109] Cmt: 1 month Reason For Visit History Recorded Primary Visit Diagnosis:Hoarseness of voice [R49.0] Other Visit Diagnoses:Overweight (BMI 25.0-29.9) [E66.3] Breast cancer screening by mammogram [Z12.31] Need for hepatitis C screening test [Z11.59] Chronic kidney insufficiency, stage 3 (moderate) (HCC) [N18.3] Right-sided epistaxis [R04.0] Skin cyst [L72.9] Order(s):CONSULT TO ENT [9008] Order #: [id number]: 1 BASIC METABOLIC PNL [SQBMP] Order #: [id number] FUTURE URINALYSIS WITH MICROSCOPIC [SQUAWMIC] Order #: [id number] phentermine-topiramate ER (QSYMIA) 7.5-46 mg 24 Hr CapsuleTake 1 capsule by mouth once daily for 30 days.Disp: 30 capsuleRfl: 0 doxycycline (VIBRA-TABS) 100 mg tabletTake 1 tablet by mouth twice daily for 7 days.Disp: 14 tabletRfl: 0 Prescriptions as of 04/06/2018 Sig: GABAPENTIN 300 MG CAPSULE Take 3 capsules by mouth once* CYCLOBENZAPRINE 10 MG TABLET Take 1 tablet by mouth twice * PREDNISONE 10 MG TABLET Take 4 tabs daily then follow* HYDROXYCHLOROQUINE 200 MG TAB* Take 1 tablet by mouth twice * TRAMADOL 37.5 MG-ACETAMINOPHE* Take 1 tablet by mouth three * LEVOTHYROXINE 125 MCG TABLET Take 1 tablet by mouth once d* ETANERCEPT 50 MG/ML (0.98 ML)* Inject 50 mg subcutaneously o* TRIAMCINOLONE ACETONIDE 0.5 %* Apply to affected area. APPL* OMEPRAZOLE 20 MG CAPSULE,FALGUNI* Take 1 capsule by mouth once * CHOLECALCIFEROL (VITAMIN D3) * Take 1 tablet by mouth once d* VITAMIN B COMPLEX TABLET Take 1 tablet by mouth once d* POLYETHYLENE GLYCOL 3350 17 G* 17gm in 8oz daily until stool* PHENTERMINE 7.5 MG-TOPIRAMATE* Take 1 capsule by mouth once * DOXYCYCLINE HYCLATE 100 MG TA* Take 1 tablet by mouth twice * Medication notes this encounter TRAMADOL 37.5 MG-ACETAMINOPHEN 325 MG TABLET >> Debbie Perez LPN 04/06/2018 2:05 PM >> ANA DEBBIE E GENERAL MAINTENANCE ENGINEER ThuApr 06, 2018 2:05 PM PRN POLYETHYLENE GLYCOL 3350 17 GRAM/DOSE ORAL POWDER >> Debbie E Ana GENERAL MAINTENANCE ENGINEER 04/06/2018 2:04 PM >> ANA, DEBBIE E GENERAL MAINTENANCE ENGINEER ThuApr 06, 2018 2:04 PM PRN Problem List As Of Date 04/06/2018 Noted Resolved Myalgia and myositis, unspecified [[id number]] INVALID FOR*05/28/2016 GASTRITIS ANTRAL( W/O Hemorrhage) [K29.60] INVALID FOR*12/27/2014 Acute gastritis without mention of hemorrhage [*INVALID FOR*12/27/2014 More... Pneumonia, organism unspecified [J18.9] INVALID FOR*12/27/2014 Vitamin D deficiency [E55.9] INVALID FOR* Left axillary pain [M79.622] INVALID FOR*05/28/2016 Adenopathy [R59.1] INVALID FOR*05/28/2016 Kidney stone [N20.0] INVALID FOR*05/28/2016 Dysphagia [R13.10] 05/28/2016 Overweight (BMI 25.0-29.9) [E66.3] INVALID FOR* Esophageal reflux [K21.9] INVALID FOR*03/15/2015 Chronic bilateral low back pain with sciatica [*INVALID FOR* Chronic conjunctivitis of both eyes [H10.403] INVALID FOR*05/28/2016 Left carpal tunnel syndrome [G56.02] INVALID FOR*04/06/2018 GERD (gastroesophageal reflux disease) [K21.9] INVALID FOR* Postoperative hypothyroidism [E89.0] INVALID FOR* Right carpal tunnel syndrome [G56.01] INVALID FOR*04/06/2018 Thyroid cancer (HCC) [C73] INVALID FOR* More... Sjogren's syndrome (HCC) [M35.00] More... RA (rheumatoid arthritis) (HCC) [M06.9] More... 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 Primary fibromyalgia syndrome [M79.7] Neck pain [M54.2] Insomnia [G47.00] Chronic kidney insufficiency, stage 3 (moderate*INVALID FOR* Prescriptions ordered this encounter Disp Refills Start End PHENTERMINE 7.5 MG-TOPIRAMATE ER 46 * 30 c* 0 04/06/2018 05/06/2018 Class: Print RX Route: ORAL Sig: Take 1 capsule by mouth once daily for 30 days. DOXYCYCLINE HYCLATE 100 MG TABLET 14 t* 0 04/06/2018 04/13/2018 Route: ORAL Sig: Take 1 tablet by mouth twice daily for 7 days. Medications Discontinued During This Encounter phentermine-topiramate ER (QSYMIA) 1* 30 c* 1 02/08/2018 04/06/2018 Class: Print RX Route: ORAL Sig: Take 1 capsule by mouth once daily for 60 days. Disc: Course of therapy completed Disposition: Return in about 4 weeks (around 05/04/2018). Follow-up and Disposition History Recorded Encounter Status:Closed by FRANCK DE LA GARZA MD on 04/06/18 XR SHLDR >/=3V Observed: 03/04/2018 Status: F Source: [facility] AP/SPARKLE AP/OTHR LT 1:49 PM [facility] REPOSITORY * * *Final Report* * * DATE OF EXAM: Mar 04 2018 1:49PM [id number] [id number] - XR SHLDR >/=3V AP/SPARKLE AP/OTHR LT / PROCEDURE REASON: Unspecified injury of left shoulder and upper arm, initial encounter * * * * Physician Interpretation * * * * EXAM TITLE: XR SHLDR >/=3V AP/SPARKLE AP/OTHR LT EXAM DATE/TIME: 03/04/2018 1:49 PM COMPARISON: Shoulder x-ray on 09/04/2016 CLINICAL INDICATION/HISTORY: Fall one month ago. TECHNIQUE: AP, true AP and Y views of the left shoulder are presented. FINDINGS: No acute fractures or subluxations are noted. The glenohumeral joint space is preserved. Significant narrowing of the acromioclavicular joint is noted, with associated osteophyte formation and bony sclerosis. The mineralization of the bones is normal. There is no significant soft tissue swelling. IMPRESSION: Findings are suggestive of degenerative changes of the acromioclavicular joint. Overall findings basically unchanged. No acute fractures seen. Street Sprinkler: GABI Transcribe Date/Time: Mar 04 2018 2:13P Dictated by : JONES HENDRIX MD This examination was interpreted and the report reviewed and electronically signed by: JONES HENDRIX MD on Mar 04 2018 2:15PM EST [id number] PROGRESS Observed: 03/04/2018 Status: COMPLETED Source: [facility] 1:41 PM [facility] REPOSITORY HNO ID: [id number] Author: Aspen Kuo (Rt) Service: (none) Author Type: Crocheter Type: Progress Notes Filed: 03/04/2018 1:50 PM Note Text: Radiology Service Progress Note PATIENT NAME: Amy Vega DATE OF SERVICE: March 04, 2018 TIME: 1:41 PM PATIENT IDENTITY VERIFICATION COMPLETED USING TWO (2) METHODS: Patient confirmed name verbally and Date of . PATIENT GENDER DATA: Female. status: : No status: NO. PATIENT RELEVANT IMPLANT DATA REVIEWED: Not Applicable RADIOLOGY DEPARTMENT: General X-ray: Exam(s) Completed: Upper Extremity X-Ray(s): Shoulder, AP / TRUE AP / AXILLARY left : PERIPHERAL IV DATA: Not applicable SIGNED BY: RT Shiela March 04, 2018 1:41 PM PROGRESS Observed: 03/04/2018 Status: COMPLETED Source: [facility] 1:03 PM [facility] REPOSITORY HNO ID: [id number] Author: Becky Zamarripa Service: (none) Author Type: Nurse Practitioner Type: Progress Notes Filed: 03/04/2018 2:37 PM Note Text: Subjective HPI Amy Vega is a 57 year old female who presents with left shoulder pain for the past month since falling in the parking lot at [place]. She has had pain on and off since the fall. She rates the pain an 8/10 today. She took a pain pill at home last night. She cannot reach her arm out or over her head. Seatbelt in car causes pain. She describes the pain as throbbing. She has rheumatoid arthritis and feels this may be contributing to the pain. She cannot lie on her side to sleep. Review of Systems Constitutional: Negative. Negative for fever. Musculoskeletal: Positive for falls and joint pain. Skin: Negative. BP 138/80 Pulse 81 Temp 36.6 ?C (97.9 ?F) (Tympanic) Resp 16 Wt 71.9 kg (158 lb 9.6 oz) BMI 24.84 kg/m? 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 * Surgery (11/10/06): total thyroidectomy, Dr. Jesus Cordova. * GAMING (): treatment 100 mCi 131-Iodine, TSH=77.57 * Scan (): postRx scan, 2 spots in thyroid bed, else negative (): Thyrogen-stim 4.3 mCi 131-I total body scan, uptake right submandibuar area (inflamed salivary gland?), but otherwise no evidence for disease local or metastatic * Ultrasound (): no suspicious adenopathy along great vessels or in lateral neck on either side. No masses in thyroid bed. (11/09/09): no suspicious adenopathy along great vessels or in lateral neck on either side. No masses in thyroid bed. (01/31/11): no suspicious adenopathy along great vessels or in lateral neck on either side. No masses in thyroid bed. * Thyroglobulin (): TG=0.5 ng/ml, Ab 6.1 IU/L (0-14), TSH=77.57 (): TG <0.2 ng/ml, Ab neg (): TG <0.2 ng/ml, Ab neg (): TG <0.2 ng/ml, Ab neg, Thyrogen stim (04/25/ - Thyroid cancer (HCC) 2004 removed, radioactive iodine ablation - Vitamin D deficiency PAST SURGICAL HISTORY Procedure Laterality Date - BREAST AUGMENTATION W/PROSTHETIC IMPLANT 2000 bilateral implants - BX BREAST PERC NEED W/GUID 10/29/11 U/S needle core left axillary LN - COLONOSCOP W/ OR W/O BRSH SPEC 07/26/2010 Colonoscopy - EGD W/O BRSH SPECIMEN W/BX 11/06/06 Hiatal hernia, gastritis, retained food - EGD W/O OR W/BRUSH/WASH EGD - EGD W/O OR W/BRUSH/WASH 03/15/2015 EGD - FNA (FINE NEEDLE ASPIRATION) 10/15/06 U/S FNA right thyroid nodule - FNA WITH IMAGING 09/22/11 U/S FNA left axillary mass - KNEE ARTHROSCOPY Left 2009 - LIGATE FALLOPIAN TUBE Tubal ligation - PAST SURGICAL HISTORY OF 2010 removal of implants AND replace AND pannilectomy - REMOVE TONSILS/ADENOIDS,<12 Y/O Tonsillectomy - REVISE MEDIAN N/CARPAL TUNNEL SURG Left 05/30/16 Carpal tunnel decomp - REVISE MEDIAN N/CARPAL TUNNEL SURG Right 09/26/2016 Carpal tunnel decomp - SYNOVECTOMY EACH 1999 left wrist - THYROIDECTOMY 11/10/06 - VAGINAL HYSTERECTOMY 2003 Hysterectomy, vaginal ALLERGIES Amicar [Aminocaproic Acid]; Humira [Adalimumab] MEDICATIONS predniSONE (DELTASONE) 10 mg tablet Take 4 tabs daily then follow taper instructions phentermine-topiramate ER (QSYMIA) 15-92 mg 24 Hr Capsule Take 1 capsule by mouth once daily for 60 days. hydroxychloroquine (PLAQUENIL) 200 mg tablet Take 1 tablet by mouth twice daily. traMADol-acetaminophen (ULTRACET) 37.5-325 mg per tablet Take 1 tablet by mouth three times daily for 184 days. levothyroxine (SYNTHROID) 125 mcg tablet Take 1 tablet by mouth once daily. cyclobenzaprine (FLEXERIL) 10 mg tablet Take 1 tablet by mouth twice daily as needed. triamcinolone acetonide (KENALOG) 0.5 % cream Apply to affected area. APPLY SMALL AMOUNT TO AFFECTED AREAS 2-3 TIMES PER DAY FOR RASH/ITCHING omeprazole (PRILOSEC) 20 mg capsule Take 1 capsule by mouth once daily. Cholecalciferol, Vitamin D3, 2,000 unit cap Take 1 tablet by mouth once daily. vitamin b complex (B COMPLEX 1) tab Take 1 tablet by mouth once daily. polyethylene glycol 3350 (MIRALAX) 17 gram/dose powder 17gm in 8oz daily until stools regular (for constipation) gabapentin (NEURONTIN) 300 mg capsule Take 3 capsules by mouth once daily for 90 days. Etanercept (ENBREL SURECLICK) 50 mg/mL (0.98 mL) pnij Inject 50 mg subcutaneously once each week. FAMILY HISTORY Problem Relation Age of Onset - Cancer Father - None Mother - Diabetes Brother from type I dx/d age 9 - Breast Cancer Sister - Thyroid Sister cancer - Diabetes Grandchild Type I age 8 Social History Substance Use Topics - Smoking status: Never Smoker - Smokeless tobacco: Never Used - Alcohol use No Comment: rare ; christmas. yao Objective Physical Exam Constitutional: She is well-developed, well-nourished, and in no distress. Musculoskeletal: Arms: Neurological: She is alert. Skin: Skin is warm and dry. Nursing note and vitals reviewed. ASSESSMENT/PLAN: 1. Injury of left shoulder, initial encounter - ICD9: 959.2, ICD10: S49.92XA - XR SHOULDER GENERAL 3V OR MORE AP/TRUE AP/OTHER LT. My reading: degenerative changes. Radiologist FINDINGS: No acute fractures or subluxations are noted.The glenohumeral joint space is preserved. Significant narrowing of the acromioclavicular joint is noted, with associated osteophyte formation and bony sclerosis.The mineralization of the bones is normal.There is no significant soft tissue swelling. Impression IMPRESSION: ?Findings are suggestive of degenerative changes of the acromioclavicular joint. ?Overall findings basically unchanged. ?No acute fractures seen. Dictated by : JONES HENDRIX MD - CONSULT TO ORTHOPAEDICS - sling applied, recommended ice, sling, NSAIDS. - Follow-up with orthopedics in 5-7 days if symptoms have not improved or sooner if symptoms worsen - Discussed red flags and need for immediate medical evaluation if any occur. - Discussed supportive care treatment with fluids, rest and analgesia. - Discussed expected course of illness Becky Zamarripa APRN.RADAR SCIENTIST CNOV Observed: 03/04/2018 Status: COMPLETED Source: [facility] 1:00 PM [facility] REPOSITORY Office Visit ([facility]) TEDDYYULISAJOELAMY Chávez V ([id number]) 1960 F Date Time Provider Department 03/04/18 1:00 PM BECKY ZAMARRIPA (PENNY) [facility] During your visit today, we recorded the following information about you: Temperature Pulse Respiration Blood pressure 97.9 degrees 81/minute 16/minute 138/80 Weight 71.9 kg Becky Zamarripa APRN.CNP 03/04/2018 2:37 PM Signed Subjective HPI Amyrosalva Vega is a 57 year old female who presents with left shoulder pain for the past month since falling in the parking lot at [place]. She has had pain on and off since the fall. She rates the pain an 8/10 today. She took a pain pill at home last night. She cannot reach her arm out or over her head. Seatbelt in car causes pain. She describes the pain as throbbing. She has rheumatoid arthritis and feels this may be contributing to the pain. She cannot lie on her side to sleep. Review of Systems Constitutional: Negative. Negative for fever. Musculoskeletal: Positive for falls and joint pain. Skin: Negative. BP 138/80 Pulse 81 Temp 36.6 ?C (97.9 ?F) (Tympanic) Resp 16 Wt 71.9 kg (158 lb 9.6 oz) BMI 24.84 kg/m? 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 * Surgery (11/10/06): total thyroidectomy, Dr. Jesus Cordova. * GAMING (): treatment 100 mCi 131-Iodine, TSH=77.57 * Scan (): postRx scan, 2 spots in thyroid bed, else negative (): Thyrogen- stim 4.3 mCi 131-I total body scan, uptake right submandibuar area (inflamed salivary gland?), but otherwise no evidence for disease local or metastatic * Ultrasound (): no suspicious adenopathy along great vessels or in lateral neck on either side. No masses in thyroid bed. (11/09/09): no suspicious adenopathy along great vessels or in lateral neck on either side. No masses in thyroid bed. (01/31/11): no suspicious adenopathy along great vessels or in lateral neck on either side. No masses in thyroid bed. * Thyroglobulin (): TG=0.5 ng/ml, Ab 6.1 IU/L (0-14), TSH=77.57 (): TG <0.2 ng/ml, Ab neg (): TG <0.2 ng/ml, Ab neg (): TG <0.2 ng/ml, Ab neg, Thyrogen stim (04/25/ - Thyroid cancer (HCC) 2004 removed, radioactive iodine ablation - Vitamin D deficiency PAST SURGICAL HISTORY Procedure Laterality Date - BREAST AUGMENTATION W/PROSTHETIC IMPLANT 2000 bilateral implants - BX BREAST PERC NEED W/GUID 10/29/11 U/S needle core left axillary LN - COLONOSCOP W/ OR W/O BRS SPEC 07/26/2010 Colonoscopy - EGD W/O [facility] SPECIMEN W/BX 11/06/06 Hiatal hernia, gastritis, retained food - EGD W/O OR W/BRUSH/WASH EGD - EGD W/O OR W/BRUSH/WASH 03/15/2015 EGD - FNA (FINE NEEDLE ASPIRATION) 10/15/06 U/S FNA right thyroid nodule - FNA WITH IMAGING 09/22/11 U/S FNA left axillary mass - KNEE ARTHROSCOPY Left 2009 - LIGATE FALLOPIAN TUBE Tubal ligation - PAST SURGICAL HISTORY OF 2010 removal of implants AND replace AND pannilectomy - REMOVE TONSILS/ADENOIDS,<12 Y/O Tonsillectomy - REVISE MEDIAN N/CARPAL TUNNEL SURG Left 05/30/16 Carpal tunnel decomp - REVISE MEDIAN N/CARPAL TUNNEL SURG Right 09/26/2016 Carpal tunnel decomp - SYNOVECTOMY EACH 1999 left wrist - THYROIDECTOMY 11/10/06 - VAGINAL HYSTERECTOMY 2003 Hysterectomy, vaginal ALLERGIES Amicar [Aminocaproic Acid]; Humira [Adalimumab] MEDICATIONS predniSONE (DELTASONE) 10 mg tablet Take 4 tabs daily then follow taper instructions phentermine-topiramate ER (QSYMIA) 15-92 mg 24 Hr Capsule Take 1 capsule by mouth once daily for 60 days. hydroxychloroquine (PLAQUENIL) 200 mg tablet Take 1 tablet by mouth twice daily. traMADol-acetaminophen (ULTRACET) 37.5-325 mg per tablet Take 1 tablet by mouth three times daily for 184 days. levothyroxine (SYNTHROID) 125 mcg tablet Take 1 tablet by mouth once daily. cyclobenzaprine (FLEXERIL) 10 mg tablet Take 1 tablet by mouth twice daily as needed. triamcinolone acetonide (KENALOG) 0.5 % cream Apply to affected area. APPLY SMALL AMOUNT TO AFFECTED AREAS 2-3 TIMES PER DAY FOR RASH/ITCHING omeprazole (PRILOSEC) 20 mg capsule Take 1 capsule by mouth once daily. Cholecalciferol, Vitamin D3, 2,000 unit cap Take 1 tablet by mouth once daily. vitamin b complex (B COMPLEX 1) tab Take 1 tablet by mouth once daily. polyethylene glycol 3350 (MIRALAX) 17 gram/dose powder 17gm in 8oz daily until stools regular (for constipation) gabapentin (NEURONTIN) 300 mg capsule Take 3 capsules by mouth once daily for 90 days. Etanercept (ENBREL SURECLICK) 50 mg/mL (0.98 mL) pnij Inject 50 mg subcutaneously once each week. FAMILY HISTORY Problem Relation Age of Onset - Cancer Father - None Mother - Diabetes Brother from type I dx/d age 9 - Breast Cancer Sister - Thyroid Sister cancer - Diabetes Grandchild Type I age 8 Social History Substance Use Topics - Smoking status: Never Smoker - Smokeless tobacco: Never Used - Alcohol use No Comment: rare ; christmas. yao Objective Physical Exam Constitutional: She is well-developed, well-nourished, and in no distress. Musculoskeletal: Arms: Neurological: She is alert. Skin: Skin is warm and dry. Nursing note and vitals reviewed. ASSESSMENT/PLAN: 1. Injury of left shoulder, initial encounter - ICD9: 959.2, ICD10: S49.92XA - XR SHOULDER GENERAL 3V OR MORE AP/TRUE AP/OTHER LT. My reading: degenerative changes. Radiologist FINDINGS: No acute fractures or subluxations are noted.The glenohumeral joint space is preserved. Significant narrowing of the acromioclavicular joint is noted, with associated osteophyte formation and bony sclerosis.The mineralization of the bones is normal.There is no significant soft tissue swelling. Impression IMPRESSION: ?Findings are suggestive of degenerative changes of the acromioclavicular joint. ?Overall findings basically unchanged. ?No acute fractures seen. Dictated by : JONES HENDRIX MD - CONSULT TO ORTHOPAEDICS - sling applied, recommended ice, sling, NSAIDS. - Follow-up with orthopedics in 5-7 days if symptoms have not improved or sooner if symptoms worsen - Discussed red flags and need for immediate medical evaluation if any occur. - Discussed supportive care treatment with fluids, rest and analgesia. - Discussed expected course of illness YAMILETH Brown APRN.CNP 03/04/2018 1:13 PM Signed Wear sling until you have the results of your xray. You may take an antiinflammatory medication. Apply ice for pain. Referring Provider: SELF [200] Allergies As of Date: 03/04/2018 Noted Allergy Reaction AMICAR (AMINOCAPROIC ACID) 06/20/2005 2 - Rash HUMIRA (ADALIMUMAB) 11/20/2015 4 - Hives Comments: welt at injection site Date Reviewed: 03/04/2018 Reviewed by: Sara Brady LPN - Fully Assessed Reason for Visit: left shoulder pain [Other] Cmt: fell one month ago and it is not getting any better Primary Visit Diagnosis:Injury of left shoulder, initial encounter [S49.92XA] Order(s):XR SHOULDER GENERAL 3V OR MORE AP/TRUE AP/OTHER LT [2244013] Order #: [id number] FUTURE CONSULT TO ORTHOPAEDICS [9026] Order #: [id number]: 1 Prescriptions as of 03/04/2018 Sig: PREDNISONE 10 MG TABLET Take 4 tabs daily then follow* PHENTERMINE 15 MG-TOPIRAMATE * Take 1 capsule by mouth once * HYDROXYCHLOROQUINE 200 MG TAB* Take 1 tablet by mouth twice * TRAMADOL 37.5 MG-ACETAMINOPHE* Take 1 tablet by mouth three * LEVOTHYROXINE 125 MCG TABLET Take 1 tablet by mouth once d* CYCLOBENZAPRINE 10 MG TABLET Take 1 tablet by mouth twice * TRIAMCINOLONE ACETONIDE 0.5 %* Apply to affected area. APPL* OMEPRAZOLE 20 MG CAPSULE,FALGUNI* Take 1 capsule by mouth once * CHOLECALCIFEROL (VITAMIN D3) * Take 1 tablet by mouth once d* VITAMIN B COMPLEX TABLET Take 1 tablet by mouth once d* POLYETHYLENE GLYCOL 3350 17 G* 17gm in 8oz daily until stool* GABAPENTIN 300 MG CAPSULE Take 3 capsules by mouth once* ETANERCEPT 50 MG/ML (0.98 ML)* Inject 50 mg subcutaneously o* Problem List As Of Date 03/04/2018 Noted Resolved Myalgia and myositis, unspecified [BAO4034] INVALID FOR*05/28/2016 GASTRITIS ANTRAL( W/O Hemorrhage) [K29.60] INVALID FOR*12/27/2014 Acute gastritis without mention of hemorrhage [*INVALID FOR*12/27/2014 More... Pneumonia, organism unspecified [J18.9] INVALID FOR*12/27/2014 Vitamin D deficiency [E55.9] INVALID FOR* Left axillary pain [M79.622] INVALID FOR*05/28/2016 Adenopathy [R59.1] INVALID FOR*05/28/2016 Kidney stone [N20.0] INVALID FOR*05/28/2016 Dysphagia [R13.10] 05/28/2016 Overweight (BMI 25.0-29.9) [E66.3] INVALID FOR* Esophageal reflux [K21.9] INVALID FOR*03/15/2015 Chronic bilateral low back pain with sciatica [*INVALID FOR* Chronic conjunctivitis of both eyes [H10.403] INVALID FOR*05/28/2016 Left carpal tunnel syndrome [G56.02] INVALID FOR* GERD (gastroesophageal reflux disease) [K21.9] INVALID FOR* Postoperative hypothyroidism [E89.0] INVALID FOR* Right carpal tunnel syndrome [G56.01] INVALID FOR* Thyroid cancer (HCC) [C73] INVALID FOR* More... Sjogren's syndrome (HCC) [M35.00] More... RA (rheumatoid arthritis) (HCC) [M06.9] More... 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 Primary fibromyalgia syndrome [M79.7] Neck pain [M54.2] Insomnia [G47.00] Other instructions from your clinician: Wear sling until you have the results of your xray. You may take an antiinflammatory medication. Apply ice for pain. Encounter Status:Closed by BECKY ZAMARRIPA on 03/04/18 AARON Observed: 02/02/2018 Status: COMPLETED Source: [facility] 12:00 AM [facility] REPOSITORY Telephone ([place]) AMY VEGA V ([id number]) 1960 F Date Time Provider Department 02/02/18 PROMISE HOANG During your visit today, we recorded the following information about you: Ramin Beard CMA 02/02/2018 8:41 AM Signed Cj asked me to send a telephone encounter to you once the patient's MRI result was scanned into her chart. Please review and respond. Thank you. Cj Lane MA 02/03/2018 2:06 PM Signed Pt want to know the result of the mri.scanned Promise Hoang MD 02/03/2018 2:15 PM Signed It showed a lot of arthritis as we expected, and a lot of inflamed tendons !! Also possible tear in few spots.. Might need to see hand surgeon for advice - I doubt she needs any surgery but for the tear? Let me know. Cj Lane MA 02/03/2018 2:46 PM Signed Pt is aware of the mri results. Cj Lane MA 02/03/2018 2:48 PM Signed She already made an appt with the hand surgeon.she will keep you update. Allergies As of Date: 02/02/2018 Noted Allergy Reaction AMICAR (AMINOCAPROIC ACID) 06/20/2005 2 - Rash HUMIRA (ADALIMUMAB) 11/20/2015 4 - Hives Comments: welt at injection site Date Reviewed: 01/26/2018 Reviewed by: Debbie Perez LPN - Fully Assessed Reason for Visit: Xray Results [439] Cmt: MRI Prescriptions as of 02/02/2018 Sig: PHENTERMINE 15 MG-TOPIRAMATE * Take 1 capsule by mouth once * HYDROXYCHLOROQUINE 200 MG TAB* Take 1 tablet by mouth twice * TRAMADOL 37.5 MG-ACETAMINOPHE* Take 1 tablet by mouth three * LEVOTHYROXINE 125 MCG TABLET Take 1 tablet by mouth once d* ETANERCEPT 50 MG/ML (0.98 ML)* Inject 50 mg subcutaneously o* CYCLOBENZAPRINE 10 MG TABLET Take 1 tablet by mouth twice * TRIAMCINOLONE ACETONIDE 0.5 %* Apply to affected area. APPL* OMEPRAZOLE 20 MG CAPSULE,FALGUNI* Take 1 capsule by mouth once * CHOLECALCIFEROL (VITAMIN D3) * Take 1 tablet by mouth once d* VITAMIN B COMPLEX TABLET Take 1 tablet by mouth once d* POLYETHYLENE GLYCOL 3350 17 G* 17gm in 8oz daily until stool* Problem List As Of Date 02/02/2018 Noted Resolved Myalgia and myositis, unspecified [CLN5311] INVALID FOR*05/28/2016 GASTRITIS ANTRAL( W/O Hemorrhage) [K29.60] INVALID FOR*12/27/2014 Acute gastritis without mention of hemorrhage [*INVALID FOR*12/27/2014 More... Pneumonia, organism unspecified [J18.9] INVALID FOR*12/27/2014 Vitamin D deficiency [E55.9] INVALID FOR* Left axillary pain [M79.622] INVALID FOR*05/28/2016 Adenopathy [R59.1] INVALID FOR*05/28/2016 Kidney stone [N20.0] INVALID FOR*05/28/2016 Dysphagia [R13.10] 05/28/2016 Overweight (BMI 25.0-29.9) [E66.3] INVALID FOR* Esophageal reflux [K21.9] INVALID FOR*03/15/2015 Chronic bilateral low back pain with sciatica [*INVALID FOR* Chronic conjunctivitis of both eyes [H10.403] INVALID FOR*05/28/2016 Left carpal tunnel syndrome [G56.02] INVALID FOR* GERD (gastroesophageal reflux disease) [K21.9] INVALID FOR* Postoperative hypothyroidism [E89.0] INVALID FOR* Right carpal tunnel syndrome [G56.01] INVALID FOR* Thyroid cancer (HCC) [C73] INVALID FOR* More... Sjogren's syndrome (HCC) [M35.00] More... RA (rheumatoid arthritis) (HCC) [M06.9] More... 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 Primary fibromyalgia syndrome [M79.7] Neck pain [M54.2] Insomnia [G47.00] Encounter Status:Closed by CJ LANE MA on 02/03/18 PROGRESS Observed: 01/26/2018 Status: COMPLETED Source: [facility] 11:21 PM [facility] REPOSITORY HNO ID: [id number] Author: Franck De La Garza Service: (none) Author Type: Physician Type: Progress Notes Filed: 01/26/2018 11:50 PM Note Text: This note was created using NoteWriter. Subjective Patient presents with: Medication Follow-up: Qsymia refill Establish Care: former [facility] patient here for 20 minute follow up HPI: Amy Vega is a 57 year old female here for above. She had longstanding issues with weight. She had chronic pain and was limited in activity and exercise. At the same time, her weight was assessed to be affecting her joint pains. In 2012, in the setting of knee surgery, she was treated with a course of phentermine and her weight dropped from 186 pounds to 164 pounds. In 2015, with ongoing above concerns, and weight back up to 190 pounds, PCP started Qsymia. This was then continued, and upon PCP custodial was refilled by FLIGHT NURSE. There were concerns about inconsistent refills last year, and risk of seizures. There were discussions this was for maintenance of weight loss. Patient denied adverse effects. She was following a vegetable rich, low carb diet. Exercise was limited due to chronic pains, and mainly consisted of walking the dog. Review of Systems Constitutional: Negative. HENT: Negative. Respiratory: Negative. Cardiovascular: Negative. Gastrointestinal: Negative. Psychiatric/Behavioral: Negative. ACTIVE PROBLEM LIST Vitamin D Deficiency Overweight (Bmi 25.0-29.9) Chronic Bilateral Low Back Pain With Sciatica Left Carpal Tunnel Syndrome Gerd (Gastroesophageal Reflux Disease) Postoperative Hypothyroidism Right Carpal Tunnel Syndrome Thyroid Cancer (Hcc) Sjogren's Syndrome (Hcc) Ra (Rheumatoid Arthritis) (Hcc) Psoriasis With Arthropathy (Hcc) Primary Fibromyalgia Syndrome Neck Pain Insomnia Current Outpatient Prescriptions: amoxicillin-clavulanic acid (AUGMENTIN) 875-125 mg per tablet Take 1 tablet by mouth twice daily for 10 days. cetirizine (ZYRTEC) 10 mg tablet Take 1 tablet by mouth once daily for 14 days. hydroxychloroquine (PLAQUENIL) 200 mg tablet Take 1 tablet by mouth twice daily. traMADol-acetaminophen (ULTRACET) 37.5-325 mg per tablet Take 1 tablet by mouth three times daily for 184 days. gabapentin (NEURONTIN) 300 mg capsule Take 3 capsules by mouth once daily for 90 days. levothyroxine (SYNTHROID) 125 mcg tablet Take 1 tablet by mouth once daily. Etanercept (ENBREL SURECLICK) 50 mg/mL (0.98 mL) pnij Inject 50 mg subcutaneously once each week. cyclobenzaprine (FLEXERIL) 10 mg tablet Take 1 tablet by mouth twice daily as needed. triamcinolone acetonide (KENALOG) 0.5 % cream Apply to affected area. APPLY SMALL AMOUNT TO AFFECTED AREAS 2-3 TIMES PER DAY FOR RASH/ITCHING omeprazole (PRILOSEC) 20 mg capsule Take 1 capsule by mouth once daily. Cholecalciferol, Vitamin D3, 2,000 unit cap Take 1 tablet by mouth once daily. vitamin b complex (B COMPLEX 1) tab Take 1 tablet by mouth once daily. polyethylene glycol 3350 (MIRALAX) 17 gram/dose powder 17gm in 8oz daily until stools regular (for constipation) [START ON 02/08/2018] phentermine-topiramate ER (QSYMIA) 15- 92 mg 24 Hr Capsule Take 1 capsule by mouth once daily for 60 days. No current facility-administered medications for this visit. Objective BP 106/62 (BP Site: Right Arm, BP Position: Sitting, BP Cuff Size: Regular Adult) Pulse 76 Temp 36.3 ?C (97.3 ?F) (Left Tympanic) Resp 20 Wt 72.6 kg (160 lb) BMI 25.06 kg/m? Physical Exam Constitutional: No distress. Eyes: No scleral icterus. Cardiovascular: Normal heart sounds. Pulmonary/Chest: Breath sounds normal. Musculoskeletal: She exhibits no edema. Vitals 01/14/2017 02/13/2017 03/05/2017 08/17/2017 10/28/2017 01/02/2018 01/18/2018 01/26/2018 WEIGHT in POUNDS 170 lb 167 lb 166 lb 153 lb 159 lb 165 lb 161 lb 160 lb CMP: Glucose 80 10/26/2017 BUN 16 10/26/2017 Creatinine 0.97 10/26/2017 Sodium 144 10/26/2017 Potassium 3.9 10/26/2017 Chloride 107 10/26/2017 CO2 23 10/26/2017 Protein, Total 7.0 10/26/2017 Albumin 4.0 10/26/2017 Calcium 9.2 10/26/2017 Alkaline Phosphatase 55 10/26/2017 Bilirubin, Total 0.3 10/26/2017 AST 25 10/26/2017 ALT 17 10/26/2017 Assessment and Plan ASSESSMENT/PLAN: 1. Overweight (BMI 25.0-29.9) - ICD9: 278.02, ICD10: E66.3 (primary diagnosis) Weight loss has plateaued at highest dose. Main comorbidity arthritis. I am of the opinion that if no further weight loss is attained (usually 1 pound per week), she will need to be weaned off in a stepwise fashion for a medication holiday. I agreed to refill for another 2 months. She was encouraged to focus on lifestyle changes for weight loss. Patient indicated understanding and willingness to follow recommendations. OARRS website checked and validated. All prescriptions have been APPROPRIATELY filled. No suspicious activity was identified.- 01/26/2018. - PHENTERMINE 15 MG-TOPIRAMATE ER 92 MG CAPSULE,[id number] MULTPHAS 2. Rheumatoid arthritis involving multiple sites with positive rheumatoid factor (HCC) - ICD9: 714.0, ICD10: M05.79 Referenced to medication above. 3. Psoriasis with arthropathy (HCC) - ICD9: 696.0, ICD10: L40.50 Reference to medication above. 4. Visit for screening mammogram - ICD9: V76.12, ICD10: Z12.31 - NORBERT SCREENING 5. Need for hepatitis C screening test - ICD9: V73.89, ICD10: Z11.59 - HEP C AB IA W/CONF SCRN Patient indicated understanding and willingness to follow recommendations. Franck De La Garza MD CNOV Observed: 01/26/2018 Status: COMPLETED Source: [facility] 4:20 PM [facility] REPOSITORY Office Visit (INTMWS) AMY VEGA V ([id number]) 1960 F Date Time Provider Department 01/26/18 4:20 PM FRANCK DE LA GARZA INTMWS During your visit today, we recorded the following information about you: Temperature Pulse Respiration Blood pressure 97.3 degrees 76/minute 20/minute 106/62 Weight 72.6 kg Franck De La Garza MD 01/26/2018 11:50 PM Signed This note was created using NoteWriter. Subjective Patient presents with: Medication Follow-up: Qsymia refill Establish Care: former DBR patient here for 20 minute follow up HPI: Amy Vega is a 57 year old female here for above. She had longstanding issues with weight. She had chronic pain and was limited in activity and exercise. At the same time, her weight was assessed to be affecting her joint pains. In 2012, in the setting of knee surgery, she was treated with a course of phentermine and her weight dropped from 186 pounds to 164 pounds. In 2015, with ongoing above concerns, and weight back up to 190 pounds, PCP started Qsymia. This was then continued, and upon PCP custodial was refilled by FLIGHT NURSE. There were concerns about inconsistent refills last year, and risk of seizures. There were discussions this was for maintenance of weight loss. Patient denied adverse effects. She was following a vegetable rich, low carb diet. Exercise was limited due to chronic pains, and mainly consisted of walking the dog. Review of Systems Constitutional: Negative. HENT: Negative. Respiratory: Negative. Cardiovascular: Negative. Gastrointestinal: Negative. Psychiatric/Behavioral: Negative. ACTIVE PROBLEM LIST Vitamin D Deficiency Overweight (Bmi 25.0-29.9) Chronic Bilateral Low Back Pain With Sciatica Left Carpal Tunnel Syndrome Gerd (Gastroesophageal Reflux Disease) Postoperative Hypothyroidism Right Carpal Tunnel Syndrome Thyroid Cancer (Hcc) Sjogren's Syndrome (Hcc) Ra (Rheumatoid Arthritis) (Hcc) Psoriasis With Arthropathy (Hcc) Primary Fibromyalgia Syndrome Neck Pain Insomnia Current Outpatient Prescriptions: amoxicillin-clavulanic acid (AUGMENTIN) 875-125 mg per tablet Take 1 tablet by mouth twice daily for 10 days. cetirizine (ZYRTEC) 10 mg tablet Take 1 tablet by mouth once daily for 14 days. hydroxychloroquine (PLAQUENIL) 200 mg tablet Take 1 tablet by mouth twice daily. traMADol-acetaminophen (ULTRACET) 37.5-325 mg per tablet Take 1 tablet by mouth three times daily for 184 days. gabapentin (NEURONTIN) 300 mg capsule Take 3 capsules by mouth once daily for 90 days. levothyroxine (SYNTHROID) 125 mcg tablet Take 1 tablet by mouth once daily. Etanercept (ENBREL SURECLICK) 50 mg/mL (0.98 mL) pnij Inject 50 mg subcutaneously once each week. cyclobenzaprine (FLEXERIL) 10 mg tablet Take 1 tablet by mouth twice daily as needed. triamcinolone acetonide (KENALOG) 0.5 % cream Apply to affected area. APPLY SMALL AMOUNT TO AFFECTED AREAS 2-3 TIMES PER DAY FOR RASH/ITCHING omeprazole (PRILOSEC) 20 mg capsule Take 1 capsule by mouth once daily. Cholecalciferol, Vitamin D3, 2,000 unit cap Take 1 tablet by mouth once daily. vitamin b complex (B COMPLEX 1) tab Take 1 tablet by mouth once daily. polyethylene glycol 3350 (MIRALAX) 17 gram/dose powder 17gm in 8oz daily until stools regular (for constipation) [START ON 02/08/2018] phentermine-topiramate ER (QSYMIA) 15- 92 mg 24 Hr Capsule Take 1 capsule by mouth once daily for 60 days. No current facility-administered medications for this visit. Objective BP 106/62 (BP Site: Right Arm, BP Position: Sitting, BP Cuff Size: Regular Adult) Pulse 76 Temp 36.3 ?C (97.3 ?F) (Left Tympanic) Resp 20 Wt 72.6 kg (160 lb) BMI 25.06 kg/m? Physical Exam Constitutional: No distress. Eyes: No scleral icterus. Cardiovascular: Normal heart sounds. Pulmonary/Chest: Breath sounds normal. Musculoskeletal: She exhibits no edema. Vitals 01/14/2017 02/13/2017 03/05/2017 08/17/2017 10/28/2017 01/02/2018 01/18/2018 01/26/2018 WEIGHT in POUNDS 170 lb 167 lb 166 lb 153 lb 159 lb 165 lb 161 lb 160 lb CMP: Glucose 80 10/26/2017 BUN 16 10/26/2017 Creatinine 0.97 10/26/2017 Sodium 144 10/26/2017 Potassium 3.9 10/26/2017 Chloride 107 10/26/2017 CO2 23 10/26/2017 Protein, Total 7.0 10/26/2017 Albumin 4.0 10/26/2017 Calcium 9.2 10/26/2017 Alkaline Phosphatase 55 10/26/2017 Bilirubin, Total 0.3 10/26/2017 AST 25 10/26/2017 ALT 17 10/26/2017 Assessment and Plan ASSESSMENT/PLAN: 1. Overweight (BMI 25.0-29.9) - ICD9: 278.02, ICD10: E66.3 (primary diagnosis) Weight loss has plateaued at highest dose. Main comorbidity arthritis. I am of the opinion that if no further weight loss is attained (usually 1 pound per week), she will need to be weaned off in a stepwise fashion for a medication holiday. I agreed to refill for another 2 months. She was encouraged to focus on lifestyle changes for weight loss. Patient indicated understanding and willingness to follow recommendations. OARRS website checked and validated. All prescriptions have been APPROPRIATELY filled. No suspicious activity was identified.- 01/26/2018. - PHENTERMINE 15 MG-TOPIRAMATE ER 92 MG CAPSULE,[id number] MULTPHAS 2. Rheumatoid arthritis involving multiple sites with positive rheumatoid factor (HCC) - ICD9: 714.0, ICD10: M05.79 Referenced to medication above. 3. Psoriasis with arthropathy (HCC) - ICD9: 696.0, ICD10: L40.50 Reference to medication above. 4. Visit for screening mammogram - ICD9: V76.12, ICD10: Z12.31 - NORBERT SCREENING 5. Need for hepatitis C screening test - ICD9: V73.89, ICD10: Z11.59 - HEP C AB IA W/CONF SCRN Patient indicated understanding and willingness to follow recommendations. Franck De La Garza MD Referring Provider: SELF [200] Allergies As of Date: 01/26/2018 Noted Allergy Reaction AMICAR (AMINOCAPROIC ACID) 06/20/2005 2 - Rash HUMIRA (ADALIMUMAB) 11/20/2015 4 - Hives Comments: welt at injection site Date Reviewed: 01/26/2018 Reviewed by: Debbie Perez LPN - Fully Assessed Reason for Visit: Medication Follow-up [270] Cmt: Qsymia refill Establish Care [42] Cmt: former DBR patient here for 20 minute follow up Reason For Visit History Recorded Primary Visit Diagnosis:Overweight (BMI 25.0-29.9) [E66.3] Other Visit Diagnoses:Rheumatoid arthritis involving multiple sites with positive rheumatoid factor (HCC) [M05.79] Psoriasis with arthropathy (HCC) [L40.50] Visit for screening mammogram [Z12.31] Need for hepatitis C screening test [Z11.59] Order(s):[START ON 02/08/2018] phentermine-topiramate ER (QSYMIA) 15-92 mg 24 Hr CapsuleTake 1 capsule by mouth once daily for 60 days.Disp: 30 capsuleRfl: 1 NORBERT SCREENING [[id number]] Order #: [id number] FUTURE HEP C AB IA W/CONF SCRN [[id number]] Order #: [id number] FUTURE Prescriptions as of 01/26/2018 Sig: AMOXICILLIN 875 MG-POTASSIUM * Take 1 tablet by mouth twice * CETIRIZINE 10 MG TABLET Take 1 tablet by mouth once d* HYDROXYCHLOROQUINE 200 MG TAB* Take 1 tablet by mouth twice * TRAMADOL 37.5 MG-ACETAMINOPHE* Take 1 tablet by mouth three * GABAPENTIN 300 MG CAPSULE Take 3 capsules by mouth once* LEVOTHYROXINE 125 MCG TABLET Take 1 tablet by mouth once d* ETANERCEPT 50 MG/ML (0.98 ML)* Inject 50 mg subcutaneously o* CYCLOBENZAPRINE 10 MG TABLET Take 1 tablet by mouth twice * TRIAMCINOLONE ACETONIDE 0.5 %* Apply to affected area. APPL* OMEPRAZOLE 20 MG CAPSULE,FALGUNI* Take 1 capsule by mouth once * CHOLECALCIFEROL (VITAMIN D3) * Take 1 tablet by mouth once d* VITAMIN B COMPLEX TABLET Take 1 tablet by mouth once d* POLYETHYLENE GLYCOL 3350 17 G* 17gm in 8oz daily until stool* PHENTERMINE 15 MG-TOPIRAMATE * Take 1 capsule by mouth once * Problem List As Of Date 01/26/2018 Noted Resolved Myalgia and myositis, unspecified [QDC0311] INVALID FOR*05/28/2016 GASTRITIS ANTRAL( W/O Hemorrhage) [K29.60] INVALID FOR*12/27/2014 Acute gastritis without mention of hemorrhage [*INVALID FOR*12/27/2014 More... Pneumonia, organism unspecified [J18.9] INVALID FOR*12/27/2014 Vitamin D deficiency [E55.9] INVALID FOR* Left axillary pain [M79.622] INVALID FOR*05/28/2016 Adenopathy [R59.1] INVALID FOR*05/28/2016 Kidney stone [N20.0] INVALID FOR*05/28/2016 Dysphagia [R13.10] 05/28/2016 Overweight (BMI 25.0-29.9) [E66.3] INVALID FOR* Esophageal reflux [K21.9] INVALID FOR*03/15/2015 Chronic bilateral low back pain with sciatica [*INVALID FOR* Chronic conjunctivitis of both eyes [H10.403] INVALID FOR*05/28/2016 Left carpal tunnel syndrome [G56.02] INVALID FOR* GERD (gastroesophageal reflux disease) [K21.9] INVALID FOR* Postoperative hypothyroidism [E89.0] INVALID FOR* Right carpal tunnel syndrome [G56.01] INVALID FOR* Thyroid cancer (HCC) [C73] INVALID FOR* More... Sjogren's syndrome (HCC) [M35.00] More... RA (rheumatoid arthritis) (HCC) [M06.9] More... 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 Primary fibromyalgia syndrome [M79.7] Neck pain [M54.2] Insomnia [G47.00] Prescriptions ordered this encounter Disp Refills Start End PHENTERMINE 15 MG-TOPIRAMATE ER 92 M* 30 c* 1 02/08/2018 04/09/2018 Class: Print RX Route: ORAL Sig: Take 1 capsule by mouth once daily for 60 days. Medications Discontinued During This Encounter phentermine-topiramate ER (QSYMIA) 1* 30 c* 1 12/11/2017 01/26/2018 Class: Print RX Route: ORAL Sig: Take 1 capsule by mouth once daily for 30 days. Disc: Reason for discontinue is not on file. Disposition: Return in about 2 months (around 03/28/2018). Follow-up and Disposition History Recorded Encounter Status:Closed by FRANCK DE LA GARZA MD on 01/26/18 CNOV Observed: 01/18/2018 Status: COMPLETED Source: [facility] 12:00 PM [facility] REPOSITORY Office Visit (WSTR) AMY VEGA V ([id number]) 1960 F Date Time Provider Department 01/18/18 12:00 PM VENKATA DUKE) WSTR During your visit today, we recorded the following information about you: Temperature Pulse Respiration Blood pressure 97.5 degrees 78/minute 16/minute 112/62 Weight 73 kg Venkata Duke ([place]) 01/18/2018 12:17 PM Signed Subjective HPI Pt presents with sinus congestion for 2 weeks. She has done amoxil 01/02 and didn't get completely better from that. She did feel better for a few days , just not completely. She is trying a vaporizer and nyquil at night. She does not usually get seasonal allergies. No fever. She does get chills. Her cough did improve from last time. Review of Systems Constitutional: Positive for chills. Negative for fever. HENT: Positive for congestion and sinus pain. Eyes: Negative. Respiratory: Positive for cough. Cardiovascular: Negative. Gastrointestinal: Negative. Skin: Negative. All other systems reviewed and are negative. 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 * Surgery (11/10/06): total thyroidectomy, Dr. Jesus Cordova. * GAMING (): treatment 100 mCi 131-Iodine, TSH=77.57 * Scan (): postRx scan, 2 spots in thyroid bed, else negative (): Thyrogen- stim 4.3 mCi 131-I total body scan, uptake right submandibuar area (inflamed salivary gland?), but otherwise no evidence for disease local or metastatic * Ultrasound (): no suspicious adenopathy along great vessels or in lateral neck on either side. No masses in thyroid bed. (11/09/09): no suspicious adenopathy along great vessels or in lateral neck on either side. No masses in thyroid bed. (01/31/11): no suspicious adenopathy along great vessels or in lateral neck on either side. No masses in thyroid bed. * Thyroglobulin (): TG=0.5 ng/ml, Ab 6.1 IU/L (0-14), TSH=77.57 (): TG <0.2 ng/ml, Ab neg (): TG <0.2 ng/ml, Ab neg (): TG <0.2 ng/ml, Ab neg, Thyrogen stim (04/25/ - Thyroid cancer (HCC) 2004 removed, radioactive iodine ablation - Vitamin D deficiency Current Outpatient Prescriptions: hydroxychloroquine (PLAQUENIL) 200 mg tablet Take 1 tablet by mouth twice daily. Disp: 180 tablet Rfl: 2 traMADol-acetaminophen (ULTRACET) 37.5-325 mg per tablet Take 1 tablet by mouth three times daily for 184 days. Disp: 270 tablet Rfl: 1 gabapentin (NEURONTIN) 300 mg capsule Take 3 capsules by mouth once daily for 90 days. Disp: 90 capsule Rfl: 2 levothyroxine (SYNTHROID) 125 mcg tablet Take 1 tablet by mouth once daily. Disp: 90 tablet Rfl: 0 Etanercept (ENBREL SURECLICK) 50 mg/mL (0.98 mL) pnij Inject 50 mg subcutaneously once each week. Disp: 12 Pen Rfl: 3 cyclobenzaprine (FLEXERIL) 10 mg tablet Take 1 tablet by mouth twice daily as needed. Disp: 180 tablet Rfl: 2 triamcinolone acetonide (KENALOG) 0.5 % cream Apply to affected area. APPLY SMALL AMOUNT TO AFFECTED AREAS 2-3 TIMES PER DAY FOR RASH/ITCHING Disp: 80 g Rfl: 12 omeprazole (PRILOSEC) 20 mg capsule Take 1 capsule by mouth once daily. Disp: 90 capsule Rfl: 3 Cholecalciferol, Vitamin D3, 2,000 unit cap Take 1 tablet by mouth once daily. Disp: 180 capsule Rfl: 0 vitamin b complex (B COMPLEX 1) tab Take 1 tablet by mouth once daily. Disp: Rfl: polyethylene glycol 3350 (MIRALAX) 17 gram/dose powder 17gm in 8oz daily until stools regular (for constipation) Disp: 1 Bottle Rfl: 6 amoxicillin-clavulanic acid (AUGMENTIN) 875-125 mg per tablet Take 1 tablet by mouth twice daily for 10 days. Disp: 20 tablet Rfl: 0 cetirizine (ZYRTEC) 10 mg tablet Take 1 tablet by mouth once daily for 14 days. Disp: 14 tablet Rfl: 0 No current facility-administered medications for this visit. PAST SURGICAL HISTORY Procedure Laterality Date - BREAST AUGMENTATION W/PROSTHETIC IMPLANT 2000 bilateral implants - BX BREAST PERC NEED W/GUID 10/29/11 U/S needle core left axillary LN - COLONOSCOP W/ OR W/O BRSH SPEC 07/26/2010 Colonoscopy - EGD W/O [facility] SPECIMEN W/BX 11/06/06 Hiatal hernia, gastritis, retained food - EGD W/O OR W/BRUSH/WASH EGD - EGD W/O OR W/BRUSH/WASH 03/15/2015 EGD - FNA (FINE NEEDLE ASPIRATION) 10/15/06 U/S FNA right thyroid nodule - FNA WITH IMAGING 09/22/11 U/S FNA left axillary mass - KNEE ARTHROSCOPY Left 2009 - LIGATE FALLOPIAN TUBE Tubal ligation - PAST SURGICAL HISTORY OF 2010 removal of implants AND replace AND pannilectomy - REMOVE TONSILS/ADENOIDS,<12 Y/O Tonsillectomy - [facility] N/CARPAL TUNNEL SURG Left 05/30/16 Carpal tunnel decomp - REVISE MEDIAN N/CARPAL TUNNEL SURG Right 09/26/2016 Carpal tunnel decomp - SYNOVECTOMY EACH 1999 left wrist - THYROIDECTOMY 11/10/06 - VAGINAL HYSTERECTOMY 2004 Hysterectomy, vaginal FAMILY HISTORY Problem Relation Age of Onset - Cancer Father - None Mother - Diabetes Brother from type I dx/d age 9 - Breast Cancer Sister - Thyroid Sister cancer - Diabetes Grandchild Type I age 8 Social History Substance Use Topics - Smoking status: Never Smoker - Smokeless tobacco: Never Used - Alcohol use No Comment: rare ; deo. wine BP 112/62 Pulse 78 Temp 36.4 ?C (97.5 ?F) Resp 16 Wt 73 kg (161 lb) SpO2 98% BMI 25.22 kg/m? Objective Physical Exam Constitutional: She is oriented to person, place, and time and well-developed, well-nourished, and in no distress. HENT: Head: Normocephalic and atraumatic. Right Ear: Tympanic membrane, external ear and ear canal normal. Left Ear: Tympanic membrane, external ear and ear canal normal. Nose: Mucosal edema and rhinorrhea present. Right sinus exhibits maxillary sinus tenderness. Left sinus exhibits maxillary sinus tenderness. Mouth/Throat: Uvula is midline, oropharynx is clear and moist and mucous membranes are normal. Cardiovascular: Normal rate, regular rhythm and normal heart sounds. Pulmonary/Chest: Effort normal and breath sounds normal. Neurological: She is alert and oriented to person, place, and time. Skin: Skin is warm and dry. No rash noted. Psychiatric: Affect and judgment normal. Nursing note and vitals reviewed. ASSESSMENT/PLAN: 1. Acute non-recurrent maxillary sinusitis - ICD9: 461.0, ICD10: J01.00 - Will begin treatment with Augmentin 875 mg PO BID for 10 days - The patient should also be given antihistamines for the first 5-7 days of treatment. - Supportive care with plenty of fluids, rest, and analgesia prn. - Follow up in one week if symptoms persist or worsen. Venkata Duke PA-C Referring Provider: SELF [200] Allergies As of Date: 01/18/2018 Noted Allergy Reaction AMICAR (AMINOCAPROIC ACID) 06/20/2005 2 - Rash HUMIRA (ADALIMUMAB) 11/20/2015 4 - Hives Comments: welt at injection site Date Reviewed: 01/18/2018 Reviewed by: Nona Kerr LPN - Fully Assessed Reason for Visit: Cough [28] Cmt: x 3 days cough Sore Throat [200] Cmt: x 3 days Pain, Sinus [857] Cmt: x 3 days Primary Visit Diagnosis:Acute non-recurrent maxillary sinusitis [J01.00] Order(s):amoxicillin-clavulanic acid (AUGMENTIN) 875-125 mg per tabletTake 1 tablet by mouth twice daily for 10 days.Disp: 20 tabletRfl: 0 cetirizine (ZYRTEC) 10 mg tabletTake 1 tablet by mouth once daily for 14 days.Disp: 14 tabletRfl: 0 Prescriptions as of 01/18/2018 Sig: HYDROXYCHLOROQUINE 200 MG TAB* Take 1 tablet by mouth twice * TRAMADOL 37.5 MG-ACETAMINOPHE* Take 1 tablet by mouth three * GABAPENTIN 300 MG CAPSULE Take 3 capsules by mouth once* LEVOTHYROXINE 125 MCG TABLET Take 1 tablet by mouth once d* ETANERCEPT 50 MG/ML (0.98 ML)* Inject 50 mg subcutaneously o* CYCLOBENZAPRINE 10 MG TABLET Take 1 tablet by mouth twice * TRIAMCINOLONE ACETONIDE 0.5 %* Apply to affected area. APPL* OMEPRAZOLE 20 MG CAPSULE,FALGUNI* Take 1 capsule by mouth once * CHOLECALCIFEROL (VITAMIN D3) * Take 1 tablet by mouth once d* VITAMIN B COMPLEX TABLET Take 1 tablet by mouth once d* POLYETHYLENE GLYCOL 3350 17 G* 17gm in 8oz daily until stool* AMOXICILLIN 875 MG-POTASSIUM * Take 1 tablet by mouth twice * CETIRIZINE 10 MG TABLET Take 1 tablet by mouth once d* Problem List As Of Date 01/18/2018 Noted Resolved Myalgia and myositis, unspecified [DSX7821] INVALID FOR*05/28/2016 GASTRITIS ANTRAL( W/O Hemorrhage) [K29.60] INVALID FOR*12/27/2014 Acute gastritis without mention of hemorrhage [*INVALID FOR*12/27/2014 More... Pneumonia, organism unspecified [J18.9] INVALID FOR*12/27/2014 Vitamin D deficiency [E55.9] INVALID FOR* Left axillary pain [M79.622] INVALID FOR*05/28/2016 Adenopathy [R59.1] INVALID FOR*05/28/2016 Kidney stone [N20.0] INVALID FOR*05/28/2016 Dysphagia [R13.10] 05/28/2016 Overweight (BMI 25.0-29.9) [E66.3] INVALID FOR*05/28/2016 Esophageal reflux [K21.9] INVALID FOR*03/15/2015 Chronic bilateral low back pain with sciatica [*INVALID FOR* Chronic conjunctivitis of both eyes [H10.403] INVALID FOR*05/28/2016 Left carpal tunnel syndrome [G56.02] INVALID FOR* GERD (gastroesophageal reflux disease) [K21.9] INVALID FOR* Postoperative hypothyroidism [E89.0] INVALID FOR* Right carpal tunnel syndrome [G56.01] INVALID FOR* Thyroid cancer (HCC) [C73] INVALID FOR* More... Sjogren's syndrome (HCC) [M35.00] More... RA (rheumatoid arthritis) (HCC) [M06.9] More... 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 Primary fibromyalgia syndrome [M79.7] Neck pain [M54.2] Insomnia [G47.00] Prescriptions ordered this encounter Disp Refills Start End AMOXICILLIN 875 MG-POTASSIUM CLAVULA* 20 t* 0 01/18/2018 01/28/2018 Route: ORAL Sig: Take 1 tablet by mouth twice daily for 10 days. CETIRIZINE 10 MG TABLET 14 t* 0 01/18/2018 02/01/2018 Route: ORAL Sig: Take 1 tablet by mouth once daily for 14 days. Encounter Status:Closed by VENKATA DUKE PA-C on 01/18/18 PROGRESS Observed: 01/18/2018 Status: COMPLETED Source: [facility] 11:56 AM [facility] REPOSITORY HNO ID: [id number] Author: Venkata Duke ([place]) Service: (none) Author Type: Physician Sports Medicine Coordinator Type: Progress Notes Filed: 01/18/2018 12:17 PM Note Text: Subjective HPI Pt presents with sinus congestion for 2 weeks. She has done amoxil 01/02 and didn't get completely better from that. She did feel better for a few days , just not completely. She is trying a vaporizer and nyquil at night. She does not usually get seasonal allergies. No fever. She does get chills. Her cough did improve from last time. Review of Systems Constitutional: Positive for chills. Negative for fever. HENT: Positive for congestion and sinus pain. Eyes: Negative. Respiratory: Positive for cough. Cardiovascular: Negative. Gastrointestinal: Negative. Skin: Negative. All other systems reviewed and are negative. 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 * Surgery (11/10/06): total thyroidectomy, Dr. Jesus Cordova. * GAMING (): treatment 100 mCi 131-Iodine, TSH=77.57 * Scan (): postRx scan, 2 spots in thyroid bed, else negative (): Thyrogen-stim 4.3 mCi 131-I total body scan, uptake right submandibuar area (inflamed salivary gland?), but otherwise no evidence for disease local or metastatic * Ultrasound (): no suspicious adenopathy along great vessels or in lateral neck on either side. No masses in thyroid bed. (11/09/09): no suspicious adenopathy along great vessels or in lateral neck on either side. No masses in thyroid bed. (01/31/11): no suspicious adenopathy along great vessels or in lateral neck on either side. No masses in thyroid bed. * Thyroglobulin (): TG=0.5 ng/ml, Ab 6.1 IU/L (0-14), TSH=77.57 (): TG <0.2 ng/ml, Ab neg (): TG <0.2 ng/ml, Ab neg (): TG <0.2 ng/ml, Ab neg, Thyrogen stim (04/25/ - Thyroid cancer (HCC) 2004 removed, radioactive iodine ablation - Vitamin D deficiency Current Outpatient Prescriptions: hydroxychloroquine (PLAQUENIL) 200 mg tablet Take 1 tablet by mouth twice daily. Disp: 180 tablet Rfl: 2 traMADol-acetaminophen (ULTRACET) 37.5-325 mg per tablet Take 1 tablet by mouth three times daily for 184 days. Disp: 270 tablet Rfl: 1 gabapentin (NEURONTIN) 300 mg capsule Take 3 capsules by mouth once daily for 90 days. Disp: 90 capsule Rfl: 2 levothyroxine (SYNTHROID) 125 mcg tablet Take 1 tablet by mouth once daily. Disp: 90 tablet Rfl: 0 Etanercept (ENBREL SURECLICK) 50 mg/mL (0.98 mL) pnij Inject 50 mg subcutaneously once each week. Disp: 12 Pen Rfl: 3 cyclobenzaprine (FLEXERIL) 10 mg tablet Take 1 tablet by mouth twice daily as needed. Disp: 180 tablet Rfl: 2 triamcinolone acetonide (KENALOG) 0.5 % cream Apply to affected area. APPLY SMALL AMOUNT TO AFFECTED AREAS 2-3 TIMES PER DAY FOR RASH/ITCHING Disp: 80 g Rfl: 12 omeprazole (PRILOSEC) 20 mg capsule Take 1 capsule by mouth once daily. Disp: 90 capsule Rfl: 3 Cholecalciferol, Vitamin D3, 2,000 unit cap Take 1 tablet by mouth once daily. Disp: 180 capsule Rfl: 0 vitamin b complex (B COMPLEX 1) tab Take 1 tablet by mouth once daily. Disp: Rfl: polyethylene glycol 3350 (MIRALAX) 17 gram/dose powder 17gm in 8oz daily until stools regular (for constipation) Disp: 1 Bottle Rfl: 6 amoxicillin-clavulanic acid (AUGMENTIN) 875-125 mg per tablet Take 1 tablet by mouth twice daily for 10 days. Disp: 20 tablet Rfl: 0 cetirizine (ZYRTEC) 10 mg tablet Take 1 tablet by mouth once daily for 14 days. Disp: 14 tablet Rfl: 0 No current facility-administered medications for this visit. PAST SURGICAL HISTORY Procedure Laterality Date - BREAST AUGMENTATION W/PROSTHETIC IMPLANT 2000 bilateral implants - BX BREAST PERC NEED W/GUID 10/29/11 U/S needle core left axillary LN - COLONOSCOP W/ OR W/O BRS SPEC 07/26/2010 Colonoscopy - EGD W/O BRS SPECIMEN W/BX 11/06/06 Hiatal hernia, gastritis, retained food - EGD W/O OR W/BRUSH/WASH EGD - EGD W/O OR W/BRUSH/WASH 03/15/2015 EGD - FNA (FINE NEEDLE ASPIRATION) 10/15/06 U/S FNA right thyroid nodule - FNA WITH IMAGING 09/22/11 U/S FNA left axillary mass - KNEE ARTHROSCOPY Left 2009 - LIGATE FALLOPIAN TUBE Tubal ligation - PAST SURGICAL HISTORY OF 2010 removal of implants AND replace AND pannilectomy - REMOVE TONSILS/ADENOIDS,<12 Y/O Tonsillectomy - REVISE MEDIAN N/CARPAL TUNNEL SURG Left 05/30/16 Carpal tunnel decomp - REVISE MEDIAN N/CARPAL TUNNEL SURG Right 09/26/2016 Carpal tunnel decomp - SYNOVECTOMY EACH 1999 left wrist - THYROIDECTOMY 11/10/06 - VAGINAL HYSTERECTOMY 2003 Hysterectomy, vaginal FAMILY HISTORY Problem Relation Age of Onset - Cancer Father - None Mother - Diabetes Brother from type I dx/d age 9 - Breast Cancer Sister - Thyroid Sister cancer - Diabetes Grandchild Type I age 8 Social History Substance Use Topics - Smoking status: Never Smoker - Smokeless tobacco: Never Used - Alcohol use No Comment: rare ; deo. wine BP 112/62 Pulse 78 Temp 36.4 ?C (97.5 ?F) Resp 16 Wt 73 kg (161 lb) SpO2 98% BMI 25.22 kg/m? Objective Physical Exam Constitutional: She is oriented to person, place, and time and well-developed, well-nourished, and in no distress. HENT: Head: Normocephalic and atraumatic. Right Ear: Tympanic membrane, external ear and ear canal normal. Left Ear: Tympanic membrane, external ear and ear canal normal. Nose: Mucosal edema and rhinorrhea present. Right sinus exhibits maxillary sinus tenderness. Left sinus exhibits maxillary sinus tenderness. Mouth/Throat: Uvula is midline, oropharynx is clear and moist and mucous membranes are normal. Cardiovascular: Normal rate, regular rhythm and normal heart sounds. Pulmonary/Chest: Effort normal and breath sounds normal. Neurological: She is alert and oriented to person, place, and time. Skin: Skin is warm and dry. No rash noted. Psychiatric: Affect and judgment normal. Nursing note and vitals reviewed. ASSESSMENT/PLAN: 1. Acute non-recurrent maxillary sinusitis - ICD9: 461.0, ICD10: J01.00 - Will begin treatment with Augmentin 875 mg PO BID for 10 days - The patient should also be given antihistamines for the first 5-7 days of treatment. - Supportive care with plenty of fluids, rest, and analgesia prn. - Follow up in one week if symptoms persist or worsen. Venkata Duke PA-C LIPID PANEL, BASIC Collected: 01/18/2018 Status: F Source: GRE[facility] 11:36 AM [facility] REPOSITORY TYPE CODE TESTS RESULT OUT OF REFERENCE UNITS RANGE LAB CHOL <200 mg/dL Cholesterol 192 Result Comment: <200 mg/dL, Desirable 200-239 mg/dL, Borderline high >239 mg/dL, High LAB TRIGLY <150 mg/dL Triglyceride 67 Result Comment: <150 mg/dL, Normal 150-199 mg/dL, Borderline high 200-499 mg/dL, High >499 mg/dL, Very high LAB HDL >39 mg/dL HDL-Cholesterol 49 Result Comment: 40-59 mg/dL, Acceptable >59 mg/dL, High: Negative risk factor for coronary heart disease <40 mg/dL, Low: Positive risk factor for coronary heart disease LAB LDL <100 mg/dL LDL-Cholesterol High 130 Result Comment: <100 mg/dL, Optimal 100-129 mg/dL, Near optimal/above optimal 130-159 mg/dL, Borderline high 160-189 mg/dL, High >189 mg/dL, Very high Secondary prevention optimal LDL Cholesterol levels are recommended to be < 70 mg/dL LAB NONHDL <130 mg/dL Non HDL High Cholesterol 143 Result Comment: <130 mg/dL, Optimal 130-159 mg/dL, Near optimal/above optimal 160-189 mg/dL, Borderline high 190-219 mg/dL, High >219 mg/dL, Very high Secondary prevention optimal non HDL Cholesterol levels are recommended to be < 100 mg/dL LAB FT hrs Fasting Time 15 LAB VLDL <30 mg/dL VLDL Cholesterol 13 LAB TCHDL <5.10 TC:HDL Ratio 3.92 LAB LDLHDL <2.54 High LDL:HDL Ratio 2.65 Result Comment: Reference: 1. National Cholesterol Education Program ATP III Guideline At-A-Glance Quick Desk Reference: National Heart, Lung, and Blood [place]. National Institutes of Health. 2001: NIH Publication No. 01-3305. 2. An International Atherosclerosis Society position paper: global recommendations for the management of dyslipidemia: executive summary, Atherosclerosis. 2014: 232(2):410-413. Performed By: #### LIPB #### [facility] [address] [place], [place] [address] PENNYTOUTREACH Observed: 01/12/2018 Status: COMPLETED Source: [facility] 12:00 AM [facility] REPOSITORY Patient Outreach ([facility]) AMY VEGA V ([id number]) 1960 F Date Time Provider Department 01/12/18 FRANCK DE LA GARZA [facility] During your visit today, we recorded the following information about you: Allergies As of Date: 01/12/2018 Noted Allergy Reaction AMICAR (AMINOCAPROIC ACID) 06/20/2005 2 - Rash HUMIRA (ADALIMUMAB) 11/20/2015 4 - Hives Comments: welt at injection site Date Reviewed: 01/02/2018 Reviewed by: Sara Brady LPN - Fully Assessed Visit Diagnosis:Medication management [Z79.899] Order(s):LIPID PANEL BASIC [SQLIPB] Order #: [id number] FUTURE Prescriptions as of 01/12/2018 Sig: HYDROXYCHLOROQUINE 200 MG TAB* Take 1 tablet by mouth twice * X PHENTERMINE 15 MG-TOPIRAMATE * Take 1 capsule by mouth once * TRAMADOL 37.5 MG-ACETAMINOPHE* Take 1 tablet by mouth three * X GABAPENTIN 300 MG CAPSULE Take 3 capsules by mouth once* LEVOTHYROXINE 125 MCG TABLET Take 1 tablet by mouth once d* ETANERCEPT 50 MG/ML (0.98 ML)* Inject 50 mg subcutaneously o* X CYCLOBENZAPRINE 10 MG TABLET Take 1 tablet by mouth twice * TRIAMCINOLONE ACETONIDE 0.5 %* Apply to affected area. APPL* OMEPRAZOLE 20 MG CAPSULE,FALGUNI* Take 1 capsule by mouth once * CHOLECALCIFEROL (VITAMIN D3) * Take 1 tablet by mouth once d* VITAMIN B COMPLEX TABLET Take 1 tablet by mouth once d* POLYETHYLENE GLYCOL 3350 17 G* 17gm in 8oz daily until stool* Problem List As Of Date 01/12/2018 Noted Resolved Myalgia and myositis, unspecified [[id number]] INVALID FOR*05/28/2016 GASTRITIS ANTRAL( W/O Hemorrhage) [K29.60] INVALID FOR*12/27/2014 Acute gastritis without mention of hemorrhage [*INVALID FOR*12/27/2014 More... Pneumonia, organism unspecified [J18.9] INVALID FOR*12/27/2014 Vitamin D deficiency [E55.9] INVALID FOR* Left axillary pain [M79.622] INVALID FOR*05/28/2016 Adenopathy [R59.1] INVALID FOR*05/28/2016 Kidney stone [N20.0] INVALID FOR*05/28/2016 Dysphagia [R13.10] 05/28/2016 Overweight (BMI 25.0-29.9) [E66.3] INVALID FOR*05/28/2016 Esophageal reflux [K21.9] INVALID FOR*03/15/2015 Chronic bilateral low back pain with sciatica [*INVALID FOR* Chronic conjunctivitis of both eyes [H10.403] INVALID FOR*05/28/2016 Left carpal tunnel syndrome [G56.02] INVALID FOR* GERD (gastroesophageal reflux disease) [K21.9] INVALID FOR* Postoperative hypothyroidism [E89.0] INVALID FOR* Right carpal tunnel syndrome [G56.01] INVALID FOR* Thyroid cancer (HCC) [C73] INVALID FOR* More... Sjogren's syndrome (HCC) [M35.00] More... RA (rheumatoid arthritis) (HCC) [M06.9] More... 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 Primary fibromyalgia syndrome [M79.7] Neck pain [M54.2] Insomnia [G47.00] Encounter Status:Closed by JAJA GUTIERREZUSEPat on 06/18/18 PROGRESS Observed: 01/02/2018 Status: COMPLETED Source: [facility] 1:23 PM [facility] REPOSITORY HNO ID: [id number] Author: Bryson Freeman Service: (none) Author Type: Physician Type: Progress Notes Filed: 01/02/2018 1:35 PM Note Text: Patient presents with: ST, right ear pain and head and chest congestion: x 6 days HPI: Feeling sick for almost 1 week. 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 * Surgery (11/10/06): total thyroidectomy, Dr. Jesus Cordova. * GAMING (): treatment 100 mCi 131-Iodine, TSH=77.57 * Scan (): postRx scan, 2 spots in thyroid bed, else negative (): Thyrogen-stim 4.3 mCi 131-I total body scan, uptake right submandibuar area (inflamed salivary gland?), but otherwise no evidence for disease local or metastatic * Ultrasound (): no suspicious adenopathy along great vessels or in lateral neck on either side. No masses in thyroid bed. (11/09/09): no suspicious adenopathy along great vessels or in lateral neck on either side. No masses in thyroid bed. (01/31/11): no suspicious adenopathy along great vessels or in lateral neck on either side. No masses in thyroid bed. * Thyroglobulin (): TG=0.5 ng/ml, Ab 6.1 IU/L (0-14), TSH=77.57 (): TG <0.2 ng/ml, Ab neg (): TG <0.2 ng/ml, Ab neg (): TG <0.2 ng/ml, Ab neg, Thyrogen stim (04/25/ - Thyroid cancer (HCC) 2005 removed, radioactive iodine ablation - Vitamin D deficiency MEDICATIONS: Current Outpatient Prescriptions: phentermine-topiramate ER (QSYMIA) 15-92 mg 24 Hr Capsule Take 1 capsule by mouth once daily for 30 days. traMADol-acetaminophen (ULTRACET) 37.5-325 mg per tablet Take 1 tablet by mouth three times daily for 184 days. gabapentin (NEURONTIN) 300 mg capsule Take 3 capsules by mouth once daily for 90 days. levothyroxine (SYNTHROID) 125 mcg tablet Take 1 tablet by mouth once daily. Etanercept (ENBREL SURECLICK) 50 mg/mL (0.98 mL) pnij Inject 50 mg subcutaneously once each week. cyclobenzaprine (FLEXERIL) 10 mg tablet Take 1 tablet by mouth twice daily as needed. hydroxychloroquine (PLAQUENIL) 200 mg tablet Take 1 tablet by mouth twice daily. triamcinolone acetonide (KENALOG) 0.5 % cream Apply to affected area. APPLY SMALL AMOUNT TO AFFECTED AREAS 2-3 TIMES PER DAY FOR RASH/ITCHING omeprazole (PRILOSEC) 20 mg capsule Take 1 capsule by mouth once daily. Cholecalciferol, Vitamin D3, 2,000 unit cap Take 1 tablet by mouth once daily. vitamin b complex (B COMPLEX 1) tab Take 1 tablet by mouth once daily. polyethylene glycol 3350 (MIRALAX) 17 gram/dose powder 17gm in 8oz daily until stools regular (for constipation) No current facility-administered medications for this visit. ALLERGIES: ALLERGIES Allergen Reactions - Amicar [Aminocaproi* Rash - Humira [Adalimumab] Hives welt at injection site VITALS: BP 122/82 Pulse 87 Temp 36.7 ?C (98.1 ?F) (Tympanic) Resp 18 Wt 74.8 kg (165 lb) SpO2 98% BMI 25.84 kg/m? PHYSICAL EXAM: GEN: mildly ill appearing HEENT: PERRL, EOMI, conjunctiva clear Ears: canals clear, TMs without erythema, no bulge, +small clear effusion base of right middle ear Sinuses: non-tender frontal sinus, pressure over maxillary sinuses, nasal congestion Throat: moist mucous membranes, mild erythema, no exudate Neck: supple, no thyromegaly, no lymphadenopathy HEART: regular rate and rhythm, no murmurs LUNGS: clear to auscultation, no wheezes or crackles, no increased WOB, non-productive sounding cough ASSESSMENT/PLAN: 1. Acute non-recurrent sinusitis, unspecified location - ICD9: 461.9, ICD10: J01.90 Acute URI. Treat with symptom medication. Cough is her most troubling symptom - add mucinex DM. Printed - AMOXICILLIN 875 MG TABLET to start if ear or sinus pain worsen or are not improving in the next few days. Bryson Freeman MD CNOV Observed: 01/02/2018 Status: COMPLETED Source: GREER 1:00 PM [facility] REPOSITORY Office Visit (W[facility]) AMY VEGA V ([id number]) 1960 F Date Time Provider Department 01/02/18 1:00 PM [facility]ON [facility]REEM[facility] During your visit today, we recorded the following information about you: Temperature Pulse Respiration Blood pressure 98.1 degrees 87/minute 18/minute 122/82 Weight 74.8 kg Bryson Freeman MD 01/02/2018 1:35 PM Signed Patient presents with: ST, right ear pain and head and chest congestion: x 6 days HPI: Feeling sick for almost 1 week. 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 * Surgery (11/10/06): total thyroidectomy, Dr. Jesus Cordova. * GAMING (): treatment 100 mCi 131-Iodine, TSH=77.57 * Scan (): postRx scan, 2 spots in thyroid bed, else negative (): Thyrogen- stim 4.3 mCi 131-I total body scan, uptake right submandibuar area (inflamed salivary gland?), but otherwise no evidence for disease local or metastatic * Ultrasound (): no suspicious adenopathy along great vessels or in lateral neck on either side. No masses in thyroid bed. (11/09/09): no suspicious adenopathy along great vessels or in lateral neck on either side. No masses in thyroid bed. (01/31/11): no suspicious adenopathy along great vessels or in lateral neck on either side. No masses in thyroid bed. * Thyroglobulin (): TG=0.5 ng/ml, Ab 6.1 IU/L (0-14), TSH=77.57 (): TG <0.2 ng/ml, Ab neg (): TG <0.2 ng/ml, Ab neg (): TG <0.2 ng/ml, Ab neg, Thyrogen stim (04/25/ - Thyroid cancer (HCC) 2005 removed, radioactive iodine ablation - Vitamin D deficiency MEDICATIONS: Current Outpatient Prescriptions: phentermine-topiramate ER (QSYMIA) 15-92 mg 24 Hr Capsule Take 1 capsule by mouth once daily for 30 days. traMADol-acetaminophen (ULTRACET) 37.5-325 mg per tablet Take 1 tablet by mouth three times daily for 184 days. gabapentin (NEURONTIN) 300 mg capsule Take 3 capsules by mouth once daily for 90 days. levothyroxine (SYNTHROID) 125 mcg tablet Take 1 tablet by mouth once daily. Etanercept (ENBREL SURECLICK) 50 mg/mL (0.98 mL) pnij Inject 50 mg subcutaneously once each week. cyclobenzaprine (FLEXERIL) 10 mg tablet Take 1 tablet by mouth twice daily as needed. hydroxychloroquine (PLAQUENIL) 200 mg tablet Take 1 tablet by mouth twice daily. triamcinolone acetonide (KENALOG) 0.5 % cream Apply to affected area. APPLY SMALL AMOUNT TO AFFECTED AREAS 2-3 TIMES PER DAY FOR RASH/ITCHING omeprazole (PRILOSEC) 20 mg capsule Take 1 capsule by mouth once daily. Cholecalciferol, Vitamin D3, 2,000 unit cap Take 1 tablet by mouth once daily. vitamin b complex (B COMPLEX 1) tab Take 1 tablet by mouth once daily. polyethylene glycol 3350 (MIRALAX) 17 gram/dose powder 17gm in 8oz daily until stools regular (for constipation) No current facility-administered medications for this visit. ALLERGIES: ALLERGIES Allergen Reactions - Amicar [Aminocaproi* Rash - Humira [Adalimumab] Hives welt at injection site VITALS: BP 122/82 Pulse 87 Temp 36.7 ?C (98.1 ?F) (Tympanic) Resp 18 Wt 74.8 kg (165 lb) SpO2 98% BMI 25.84 kg/m? PHYSICAL EXAM: GEN: mildly ill appearing HEENT: PERRL, EOMI, conjunctiva clear Ears: canals clear, TMs without erythema, no bulge, +small clear effusion base of right middle ear Sinuses: non-tender frontal sinus, pressure over maxillary sinuses, nasal congestion Throat: moist mucous membranes, mild erythema, no exudate Neck: supple, no thyromegaly, no lymphadenopathy HEART: regular rate and rhythm, no murmurs LUNGS: clear to auscultation, no wheezes or crackles, no increased WOB, non-productive sounding cough ASSESSMENT/PLAN: 1. Acute non-recurrent sinusitis, unspecified location - ICD9: 461.9, ICD10: J01.90 Acute URI. Treat with symptom medication. Cough is her most troubling symptom - add mucinex DM. Printed - AMOXICILLIN 875 MG TABLET to start if ear or sinus pain worsen or are not improving in the next few days. Bryson Freeman MD Referring Provider: SELF [[id number]] Allergies As of Date: 01/02/2018 Noted Allergy Reaction AMICAR (AMINOCAPROIC ACID) 06/20/2005 2 - Rash HUMIRA (ADALIMUMAB) 11/20/2015 4 - Hives Comments: welt at injection site Date Reviewed: 01/02/2018 Reviewed by: Sara Brady LPN - Fully Assessed Reason for Visit: ST, right ear pain and head and chest congestion [Other] Cmt: x 6 days Reason For Visit History Recorded Primary Visit Diagnosis:Acute non-recurrent sinusitis, unspecified location [J01.90] Order(s):amoxicillin (AMOXIL) 875 mg tabletTake 1 tablet by mouth twice daily for 7 days.Disp: 14 tabletRfl: 0 Prescriptions as of 01/02/2018 Sig: PHENTERMINE 15 MG-TOPIRAMATE * Take 1 capsule by mouth once * TRAMADOL 37.5 MG-ACETAMINOPHE* Take 1 tablet by mouth three * GABAPENTIN 300 MG CAPSULE Take 3 capsules by mouth once* LEVOTHYROXINE 125 MCG TABLET Take 1 tablet by mouth once d* ETANERCEPT 50 MG/ML (0.98 ML)* Inject 50 mg subcutaneously o* CYCLOBENZAPRINE 10 MG TABLET Take 1 tablet by mouth twice * HYDROXYCHLOROQUINE 200 MG TAB* Take 1 tablet by mouth twice * TRIAMCINOLONE ACETONIDE 0.5 %* Apply to affected area. APPL* OMEPRAZOLE 20 MG CAPSULE,FALGUNI* Take 1 capsule by mouth once * CHOLECALCIFEROL (VITAMIN D3) * Take 1 tablet by mouth once d* VITAMIN B COMPLEX TABLET Take 1 tablet by mouth once d* AMOXICILLIN 875 MG TABLET Take 1 tablet by mouth twice * POLYETHYLENE GLYCOL 3350 17 G* 17gm in 8oz daily until stool* Problem List As Of Date 01/02/2018 Noted Resolved Myalgia and myositis, unspecified [[id number]] INVALID FOR*05/28/2016 GASTRITIS ANTRAL( W/O Hemorrhage) [K29.60] INVALID FOR*12/27/2014 Acute gastritis without mention of hemorrhage [*INVALID FOR*12/27/2014 More... Pneumonia, organism unspecified [J18.9] INVALID FOR*12/27/2014 Vitamin D deficiency [E55.9] INVALID FOR* Left axillary pain [M79.622] INVALID FOR*05/28/2016 Adenopathy [R59.1] INVALID FOR*05/28/2016 Kidney stone [N20.0] INVALID FOR*05/28/2016 Dysphagia [R13.10] 05/28/2016 Overweight (BMI 25.0-29.9) [E66.3] INVALID FOR*05/28/2016 Esophageal reflux [K21.9] INVALID FOR*03/15/2015 Chronic bilateral low back pain with sciatica [*INVALID FOR* Chronic conjunctivitis of both eyes [H10.403] INVALID FOR*05/28/2016 Left carpal tunnel syndrome [G56.02] INVALID FOR* GERD (gastroesophageal reflux disease) [K21.9] INVALID FOR* Postoperative hypothyroidism [E89.0] INVALID FOR* Right carpal tunnel syndrome [G56.01] INVALID FOR* Thyroid cancer (HCC) [C73] INVALID FOR* More... Sjogren's syndrome (HCC) [M35.00] More... RA (rheumatoid arthritis) (HCC) [M06.9] More... 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 Primary fibromyalgia syndrome [M79.7] Neck pain [M54.2] Insomnia [G47.00] Prescriptions ordered this encounter Disp Refills Start End AMOXICILLIN 875 MG TABLET 14 t* 0 01/02/2018 01/09/2018 Class: Print RX Route: ORAL Sig: Take 1 tablet by mouth twice daily for 7 days. Encounter Status:Closed by BRYSON FREEMAN MD on 01/02/18 OBSOLETE Observed: 11/06/2017 Status: COMPLETED Source: [facility] 12:00 AM [facility] REPOSITORY Refill (AGRHEUHWN) AMY VEGA V ([id number]) 1960 F Date Time Provider Department 11/06/17 PROMISE HOANG During your visit today, we recorded the following information about you: María Oscar CMA 11/06/2017 10:03 AM Signed Patient called requesting the following refill. Pending Prescriptions Disp Refills TRAMADOL 37.5 MG-ACETAMINOPHEN 325 MG TABLET 270 tablet 1 Sig: Take 1 tablet by mouth three times daily. HOMA Class: C-IV LUISA: No Patient last appointment: 10/28/2017 Next Appointment: 03/11/2018 Patient Phone numbers: [phone] (home) Request is for script(s) to be called in to pharmacy. ESTHER Delgado CMA 11/09/2017 11:06 AM Signed The following prescriptions have been called to [facility] pharmacy 11/09/2017 at 11:06 AM by María Oscar CMA. I spoke with in the pharmacy. Signed Prescriptions Disp Refills traMADol-acetaminophen (ULTRACET) 37.5-325 mg per tablet 270 tablet 1 Sig: Take 1 tablet by mouth three times daily for 184 days. HOMA Class: C-IV LUISA: No Authorizing Provider: PROMISE HOANG Allergies As of Date: 11/06/2017 Noted Allergy Reaction AMICAR (AMINOCAPROIC ACID) 06/20/2005 2 - Rash HUMIRA (ADALIMUMAB) 11/20/2015 4 - Hives Comments: welt at injection site Date Reviewed: 10/28/2017 Reviewed by: Promise Hoang - Fully Assessed Reason for Visit: Refill Request [94] Visit Diagnosis:Localized adiposity [E65] Order(s):traMADol-acetaminophen (ULTRACET) 37.5-325 mg per tabletTake 1 tablet by mouth three times daily for 184 days.Disp: 270 tabletRfl: 1 Prescriptions as of 11/06/2017 Sig: TRAMADOL 37.5 MG-ACETAMINOPHE* Take 1 tablet by mouth three * GABAPENTIN 300 MG CAPSULE Take 3 capsules by mouth once* LEVOTHYROXINE 125 MCG TABLET Take 1 tablet by mouth once d* PHENTERMINE 15 MG-TOPIRAMATE * Take 1 capsule by mouth once * ETANERCEPT 50 MG/ML (0.98 ML)* Inject 50 mg subcutaneously o* CYCLOBENZAPRINE 10 MG TABLET Take 1 tablet by mouth twice * HYDROXYCHLOROQUINE 200 MG TAB* Take 1 tablet by mouth twice * TRIAMCINOLONE ACETONIDE 0.5 %* Apply to affected area. APPL* OMEPRAZOLE 20 MG CAPSULE,FALGUNI* Take 1 capsule by mouth once * Patient not taking: Reported on 10/28/2017 CHOLECALCIFEROL (VITAMIN D3) * Take 1 tablet by mouth once d* VITAMIN B COMPLEX TABLET Take 1 tablet by mouth once d* POLYETHYLENE GLYCOL 3350 17 G* 17gm in 8oz daily until stool* Patient not taking: Reported on 10/28/2017 Problem List As Of Date 11/06/2017 Noted Resolved Myalgia and myositis, unspecified [RJP8560] INVALID FOR*05/28/2016 GASTRITIS ANTRAL( W/O Hemorrhage) [K29.60] INVALID FOR*12/27/2014 Acute gastritis without mention of hemorrhage [*INVALID FOR*12/27/2014 More... Pneumonia, organism unspecified [J18.9] INVALID FOR*12/27/2014 Vitamin D deficiency [E55.9] INVALID FOR* Left axillary pain [M79.622] INVALID FOR*05/28/2016 Adenopathy [R59.1] INVALID FOR*05/28/2016 Kidney stone [N20.0] INVALID FOR*05/28/2016 Dysphagia [R13.10] 05/28/2016 Overweight (BMI 25.0-29.9) [E66.3] INVALID FOR*05/28/2016 Esophageal reflux [K21.9] INVALID FOR*03/15/2015 Chronic bilateral low back pain with sciatica [*INVALID FOR* Chronic conjunctivitis of both eyes [H10.403] INVALID FOR*05/28/2016 Left carpal tunnel syndrome [G56.02] INVALID FOR* GERD (gastroesophageal reflux disease) [K21.9] INVALID FOR* Postoperative hypothyroidism [E89.0] INVALID FOR* Right carpal tunnel syndrome [G56.01] INVALID FOR* Thyroid cancer (HCC) [C73] INVALID FOR* More... Sjogren's syndrome (HCC) [M35.00] More... RA (rheumatoid arthritis) (HCC) [M06.9] More... 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 Primary fibromyalgia syndrome [M79.7] Neck pain [M54.2] Insomnia [G47.00] Prescriptions ordered this encounter Disp Refills Start End TRAMADOL 37.5 MG-ACETAMINOPHEN 325 M* 270 * 1 11/06/2017 05/09/2018 Class: Call Rx Route: ORAL Sig: Take 1 tablet by mouth three times daily for 184 days. Medications Discontinued During This Encounter traMADol-acetaminophen (ULTRACET) 37* 270 * 1 03/05/2017 11/06/2017 Class: Print RX Route: ORAL Sig: Take 1 tablet by mouth three times daily. Disc: Reason for discontinue is not on file. Encounter Status:Closed by NATALYA PERKINS JANUARY on 11/06/17 AARON Observed: 11/06/2017 Status: COMPLETED Source: [facility] 12:00 AM [facility] REPOSITORY Telephone (LUZ MARIAUHWFrannie) AMY VEGA V ([id number]) 1960 F Date Time Provider Department 11/06/17 PROMISE HOANG During your visit today, we recorded the following information about you: María Oscar CMA 11/06/2017 9:10 AM Signed ----- Message from January Natalya sent at 11/02/2017 7:02 PM EST ----- XR showing a lot of arthritis, narrowing and several bone spurs which is from her PsA .. It is not showing the painful lumps we felt on exam together.. Might need an MRI for that or see hand surgery for advice IF still there and bothersome. María Oscar CMA 11/06/2017 9:14 AM Signed Pt is aware of xray result. Pt wants to do MRI. Please put the order in. Pt would like to get the MRI that test hand only. Due to her fear of whole body in machine. Pt would like to get scheduled at [facility]. Promise Hoang MD 11/06/2017 9:45 PM Signed Both of her hands/wrists had painful swollen nodules / bumps .. Which side she has it worse? I forgot which side we said to do please check with her. María Oscar CMA 11/10/2017 1:33 PM Signed Pt was contacted and says her right side is worse. María Oscar CMA 11/11/2017 10:28 AM Signed Can you help the pt set up an MRI appt. Rika Figueroa CEMENT SACK BREAKER 11/18/2017 4:32 PM Signed I faxed clinicals to [facility] at [phone] obtain a prior authorization for mri right wrist. Prior Authorization #: [id number] PRIOR AUTH STATUS: APPROVED effective: 11/11/17 Expires: 12/18/17 I faxed [facility] for them to contact patient to schedule. 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 APPL* OMEPRAZOLE 20 MG CAPSULE,FALGUNI* Take 1 capsule by mouth once * Patient not taking: Reported on 10/28/2017 CHOLECALCIFEROL (VITAMIN D3) * Take 1 tablet by mouth once d* VITAMIN B COMPLEX TABLET Take 1 tablet by mouth once d* POLYETHYLENE GLYCOL 3350 17 G* 17gm in 8oz daily until stool* Patient not taking: Reported on 10/28/2017 Problem List As Of Date 11/06/2017 Noted Resolved Myalgia and myositis, unspecified [NXH3213] INVALID FOR*05/28/2016 GASTRITIS ANTRAL( W/O Hemorrhage) [K29.60] INVALID FOR*12/27/2014 Acute gastritis without mention of hemorrhage [*INVALID FOR*12/27/2014 More... Pneumonia, organism unspecified [J18.9] INVALID FOR*12/27/2014 Vitamin D deficiency [E55.9] INVALID FOR* Left axillary pain [M79.622] INVALID FOR*05/28/2016 Adenopathy [R59.1] INVALID FOR*05/28/2016 Kidney stone [N20.0] INVALID FOR*05/28/2016 Dysphagia [R13.10] 05/28/2016 Overweight (BMI 25.0-29.9) [E66.3] INVALID FOR*05/28/2016 Esophageal reflux [K21.9] INVALID FOR*03/15/2015 Chronic bilateral low back pain with sciatica [*INVALID FOR* Chronic conjunctivitis of both eyes [H10.403] INVALID FOR*05/28/2016 Left carpal tunnel syndrome [G56.02] INVALID FOR* GERD (gastroesophageal reflux disease) [K21.9] INVALID FOR* Postoperative hypothyroidism [E89.0] INVALID FOR* Right carpal tunnel syndrome [G56.01] INVALID FOR* Thyroid cancer (HCC) [C73] INVALID FOR* More... Sjogren's syndrome (HCC) [M35.00] More... RA (rheumatoid arthritis) (HCC) [M06.9] More... 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 Primary fibromyalgia syndrome [M79.7] Neck pain [M54.2] Insomnia [G47.00] Encounter Status:Closed by MARÍA OSCAR CMA on 11/11/17 XR HAND 3V PA/LAT/OBL Observed: 10/30/2017 Status: F Source: [facility] 9:23 AM [facility] REPOSITORY * * *Final Report* * * DATE OF EXAM: Oct 30 2017 9:23AM WOX 5345 - XR HAND 3V PA/LAT/OBL LT / PROCEDURE REASON: Arthropathic psoriasis, unspecified * * * * Physician Interpretation * * * * HISTORY: 57-YEAR-OLD FEMALE WITH Rheumatoid arthritis with rheumatoid factor of multiple sites without organ or systems involvement Carpal tunnel syndrome, left upper limb Carpal tunnel syndrome, right upper limb . pt states hx of arthritis, pain in medial and lateral sides of both wrists, may have fallen 3 months ago walking dog. (accession [id number]), pt states both hand also painful in fingers and joints. no inj (accession [id number]), pt states hx of arthritis, pain in medial and lateral sides of both wrists, may have fallen 3 months ago walking dog. (accession [id number]), pt states both hand also painful in fingers and joints. no inj (accession [id number]) TECHNIQUE: XR WRIST 3V PA/LAT/OBL LT, XR HAND 3V PA/LAT/OBL RT, XR WRIST 3V PA/LAT/OBL RT, XR HAND 3V PA/LAT/OBL LT Laterality: LEFT (accession [id number]), RIGHT (accession [id number]), RIGHT (accession [id number]), LEFT (accession [id number]) Number of different views (projections): 3 COMPARISON: 09/04/2016 right hand and wrist and 06/02/2014 left wrist RESULT: Right wrist: Mild narrowing of the radiolunate joint with small osteophyte in the lunate. The remaining carpal bones, intercarpal joint spaces and carpal alignment are normal. Left wrist: Slight asymmetric alignment of the scapholunate joint without widening of the joint. Carpal bones, intercarpal spaces and carpal alignment otherwise normal. Right hand: Small osteophyte at the MCP joint of the second digit. Mild asymmetric narrowing of the PIP joint of the fifth digit and DIP joint of the fourth digit and second digit. Left hand: Small osteophytes dorsally DIP joint of the thumb. Narrowing of the PIP joint of the second digit. Bones and joints otherwise normal. No fracture. IMPRESSION: MILD DEGENERATIVE CHANGES, NO EVIDENCE OF PSORIATIC OR INFLAMMATORY ARTHROPATHY. Street Sprinkler: PSCB Transcribe Date/Time: Oct 30 2017 2:24P Dictated by : LANA QUARLES MD This examination was interpreted and the report reviewed and electronically signed by: LANA QUARLES MD on Oct 30 2017 2:29PM EST [id number] XR WRIST 3V PA/LAT/OBL Observed: 10/30/2017 Status: F Source: [facility] 9:23 AM [facility] REPOSITORY * * *Final Report* * * DATE OF EXAM: Oct 30 2017 9:23AM WOX 5271 - XR WRIST 3V PA/LAT/OBL RT / PROCEDURE REASON: multiple diagnoses * * * * Physician Interpretation * * * * HISTORY: 57-YEAR-OLD FEMALE WITH Rheumatoid arthritis with rheumatoid factor of multiple sites without organ or systems involvement Carpal tunnel syndrome, left upper limb Carpal tunnel syndrome, right upper limb . pt states hx of arthritis, pain in medial and lateral sides of both wrists, may have fallen 3 months ago walking dog. (accession [id number]), pt states both hand also painful in fingers and joints. no inj (accession [id number]), pt states hx of arthritis, pain in medial and lateral sides of both wrists, may have fallen 3 months ago walking dog. (accession [id number]), pt states both hand also painful in fingers and joints. no inj (accession [id number]) TECHNIQUE: XR WRIST 3V PA/LAT/OBL LT, XR HAND 3V PA/LAT/OBL RT, XR WRIST 3V PA/LAT/OBL RT, XR HAND 3V PA/LAT/OBL LT Laterality: LEFT (accession [id number]), RIGHT (accession [id number]), RIGHT (accession [id number]), LEFT (accession [id number]) Number of different views (projections): 3 COMPARISON: 09/04/2016 right hand and wrist and 06/02/2014 left wrist RESULT: Right wrist: Mild narrowing of the radiolunate joint with small osteophyte in the lunate. The remaining carpal bones, intercarpal joint spaces and carpal alignment are normal. Left wrist: Slight asymmetric alignment of the scapholunate joint without widening of the joint. Carpal bones, intercarpal spaces and carpal alignment otherwise normal. Right hand: Small osteophyte at the MCP joint of the second digit. Mild asymmetric narrowing of the PIP joint of the fifth digit and DIP joint of the fourth digit and second digit. Left hand: Small osteophytes dorsally DIP joint of the thumb. Narrowing of the PIP joint of the second digit. Bones and joints otherwise normal. No fracture. IMPRESSION: MILD DEGENERATIVE CHANGES, NO EVIDENCE OF PSORIATIC OR INFLAMMATORY ARTHROPATHY. Street Sprinkler: GABI Transcribe Date/Time: Oct 30 2017 2:24P Dictated by : LANA QUARLES MD This examination was interpreted and the report reviewed and electronically signed by: LANA QUARLES MD on Oct 30 2017 2:29PM EST [id number] XR WRIST 3V PA/LAT/OBL Observed: 10/30/2017 Status: F Source: [facility] 9:23 AM [facility] * * *Final Report* * * DATE OF EXAM: Oct 30 2017 9:23AM WOX 5270 - XR WRIST 3V PA/LAT/OBL LT / PROCEDURE REASON: multiple diagnoses * * * * Physician Interpretation * * * * HISTORY: 57-YEAR-OLD FEMALE WITH Rheumatoid arthritis with rheumatoid factor of multiple sites without organ or systems involvement Carpal tunnel syndrome, left upper limb Carpal tunnel syndrome, right upper limb . pt states hx of arthritis, pain in medial and lateral sides of both wrists, may have fallen 3 months ago walking dog. (accession [id number]), pt states both hand also painful in fingers and joints. no inj (accession [id number]), pt states hx of arthritis, pain in medial and lateral sides of both wrists, may have fallen 3 months ago walking dog. (accession [id number]), pt states both hand also painful in fingers and joints. no inj (accession [id number]) TECHNIQUE: XR WRIST 3V PA/LAT/OBL LT, XR HAND 3V PA/LAT/OBL RT, XR WRIST 3V PA/LAT/OBL RT, XR HAND 3V PA/LAT/OBL LT Laterality: LEFT (accession [id number]), RIGHT (accession [id number]), RIGHT (accession [id number]), LEFT (accession [id number]) Number of different views (projections): 3 COMPARISON: 09/04/2016 right hand and wrist and 06/02/2014 left wrist RESULT: Right wrist: Mild narrowing of the radiolunate joint with small osteophyte in the lunate. The remaining carpal bones, intercarpal joint spaces and carpal alignment are normal. Left wrist: Slight asymmetric alignment of the scapholunate joint without widening of the joint. Carpal bones, intercarpal spaces and carpal alignment otherwise normal. Right hand: Small osteophyte at the MCP joint of the second digit. Mild asymmetric narrowing of the PIP joint of the fifth digit and DIP joint of the fourth digit and second digit. Left hand: Small osteophytes dorsally DIP joint of the thumb. Narrowing of the PIP joint of the second digit. Bones and joints otherwise normal. No fracture. IMPRESSION: MILD DEGENERATIVE CHANGES, NO EVIDENCE OF PSORIATIC OR INFLAMMATORY ARTHROPATHY. Street Sprinkler: [employer] Transcribe Date/Time: Oct 30 2017 2:24P Dictated by : LANA QUARLES MD This examination was interpreted and the report reviewed and electronically signed by: LANA QUARLES MD on Oct 30 2017 2:29PM EST [id number] XR HAND 3V PA/LAT/OBL Observed: 10/30/2017 Status: F Source: [facility] 9:23 AM [facility] * * *Final Report* * * DATE OF EXAM: Oct 30 2017 9:23AM WOX 5346 - XR HAND 3V PA/LAT/OBL RT / PROCEDURE REASON: Arthropathic psoriasis, unspecified * * * * Physician Interpretation * * * * HISTORY: 57-YEAR-OLD FEMALE WITH Rheumatoid arthritis with rheumatoid factor of multiple sites without organ or systems involvement Carpal tunnel syndrome, left upper limb Carpal tunnel syndrome, right upper limb . pt states hx of arthritis, pain in medial and lateral sides of both wrists, may have fallen 3 months ago walking dog. (accession [id number]), pt states both hand also painful in fingers and joints. no inj (accession [id number]), pt states hx of arthritis, pain in medial and lateral sides of both wrists, may have fallen 3 months ago walking dog. (accession [id number]), pt states both hand also painful in fingers and joints. no inj (accession [id number]) TECHNIQUE: XR WRIST 3V PA/LAT/OBL LT, XR HAND 3V PA/LAT/OBL RT, XR WRIST 3V PA/LAT/OBL RT, XR HAND 3V PA/LAT/OBL LT Laterality: LEFT (accession [id number]), RIGHT (accession [id number]), RIGHT (accession [id number]), LEFT (accession [id number]) Number of different views (projections): 3 COMPARISON: 09/04/2016 right hand and wrist and 06/02/2014 left wrist RESULT: Right wrist: Mild narrowing of the radiolunate joint with small osteophyte in the lunate. The remaining carpal bones, intercarpal joint spaces and carpal alignment are normal. Left wrist: Slight asymmetric alignment of the scapholunate joint without widening of the joint. Carpal bones, intercarpal spaces and carpal alignment otherwise normal. Right hand: Small osteophyte at the MCP joint of the second digit. Mild asymmetric narrowing of the PIP joint of the fifth digit and DIP joint of the fourth digit and second digit. Left hand: Small osteophytes dorsally DIP joint of the thumb. Narrowing of the PIP joint of the second digit. Bones and joints otherwise normal. No fracture. IMPRESSION: MILD DEGENERATIVE CHANGES, NO EVIDENCE OF PSORIATIC OR INFLAMMATORY ARTHROPATHY. Street Sprinkler: PSCB Transcribe Date/Time: Oct 30 2017 2:24P Dictated by : LANA QUARLES MD This examination was interpreted and the report reviewed and electronically signed by: LAAN QUARLES MD on Oct 30 2017 2:29PM EST [id number] Observed: 10/30/2017 Status: COMPLETED Source: [facility] 8:56 AM [facility] O ID: [id number] Author: Rama Willis (Rt) [facility] Service: (none) Author Type: Crocheter Type: Progress Notes Filed: 10/30/2017 9:36 AM Note Text: Radiology Service Progress Note PATIENT NAME: Amy Vega DATE OF SERVICE: October 30, 2017 TIME: 8:56 AM PATIENT IDENTITY VERIFICATION COMPLETED USING TWO (2) METHODS: Patient confirmed name verbally and Date of . PATIENT GENDER DATA: Female. status: : No status: NO. PATIENT RELEVANT IMPLANT DATA REVIEWED: Not Applicable RADIOLOGY DEPARTMENT: General X-ray: Exam(s) Completed: Upper Extremity X-Ray(s): Hand, bilateral : PERIPHERAL IV DATA: Not applicable SIGNED BY: RT Trenton October 30, 2017 8:56 AM PROGRESS Observed: 10/28/2017 Status: COMPLETED Source: [facility] 5:02 PM [facility] REPOSITORY HNO ID: [id number] Author: Promise Hoang Service: (none) Author Type: Physician Type: Progress Notes Filed: 10/28/2017 6:09 PM Note Text: Subjective History of Present Illness: General HPI: Amy is here for her CCP positive rheumatoid factor positive RA, associated nail disease, dactylitis, inflammatory back symptoms 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 Quite severe disease. Background of papillary thyroid cancer. Was NOT seen for THREE years between 01/15 and 10/21 01/15: She has been doing relatively okay. She's struggling with her thyroid status, with her history of papillary cancer, her TSH was found to be very high, currently being worked up and seen endocrinology soon to adjust this. 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 Tried several things including melatonin, diazepam, and recently Ambien. Non-of these helps. She has tolerable joint symptoms, no significant swelling or pain. Improved symptoms in the left wrists. She's been doing her Enbrel injections weekly and methotrexate 6 once a week. She has no difficulties with her meds or injections, no side effects, no recent major infection. She had a recent bug bites over her left tenriism and it's swollen with small lymph node swelling as well given antibiotics for her primary care physician. 10/25/13: Since last seen, which has been almost 3 years, has been doing about the same. Continues to have significant amount of joint pain, and every single joints, neck shoulders, both hands her MCP PIP even DIP joints and wrists, low back, both knees and her feet pretty bad. She has significant amount of stiffness and pain when she gets up after trying to sleep. She continues to have fatigue and insomnia. 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 Tried many things which didn't seem to help. She cannot sleep more than 4 hours at the most and fragmented, non-refreshing. She continues Enbrel weekly. Has been off methotrexate in a while since it caused? Liver toxicity. Had significant problems with her knees, had to have arthroscopic knee surgery, right knee was drained and injected recently. Continues to have pretty bad nail disease, intermittent dactylitis. Thyroid has been pretty stable. She has not had labs and so many months!! 05/25/14: Continues being very miserable. Hurting all over, so sensitive to touch, neck shoulders elbows, both hands are terribly painful, specially both middle fingers, so swollen and tight, sausage fingers, miserable over her entire back and sides, both feet. Continues to have night shifts, which is causing her severe destructive sleep, unable to catch up. Has extreme fatigue exhaustion and insomnia. Continues Enbrel weekly. Not sure if it's helping her or not. Has not been on prednisone in a while. Has not had labs in a while. 08/16/14: Seems to be slowly getting better, very subtle improvement in general, confirmed by her who was present today. Continues to have extreme pain all over her joints, her neck shoulders, both hands really bad over all PIP joints MCPs and wrists, throbbing pain and swelling, difficulty with her tobacco dipper, pain over both elbows low back and sides, her ankles really bad in the bottom of her feet. She finally quit her job. Has normal circadian routine finally. 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 She has been struggling with her thyroid, her TSH was 5.7 recently, Synthroid dose was increased. Going for further labs. Continues to have severe nail changes. Taking her methotrexate without any interruptions, taking her Enbrel twice a week over the past 1-1/2 months or so. She believes it's helping her more taking twice a week. Reviewed her labs together. 01/17/15: Continues to be miserable. She unfortunately was off her treatment for over 3 weeks after stepping on a reema nail while working in her yard. She had a wound on her right foot, which eventually healed nicely. She was off both her methotrexate and Enbrel. Previous to that, she completed twice a week Enbrel course for about 3 months and it made her feel slightly better not completely. She continues to have severe pain all over her entire body, her neck and shoulders, both hands the worst, swelling tightness and stiffness, throbbing over all joints, visible swelling and dactylitis, she's struggling with pain over her knees ankles and feet. Her low back and sides. She's been suffering also a lot with her nails. Breaking off and hurting so bad. Most of her fingernails looking very bad. She is also having trouble with her thyroid status. TSH has been fluctuating. Also playing a role with her severe symptoms. Asking about disability. She is not able to work anymore. 11/20/15: Has not been seen in a long time. Numerous issues concerns questions, counseling needed during the visit. She continues to be incredibly miserable with her pain. Hurting pretty much in every joint and soft tissue, hurting pretty bad over both hands, her MCP PIP DIP joints with enlargement, tightness throbbing, even her nails hurt, continues to have severe nail changes with lysis ridges pitting and black lines (splinter hemorrhages), significant pain over the entire spine low back and sides, both knees hurt pretty bad, ankles and feet. Recently having more pain in her neck, around the occipital area, also noticing tingling numbness in her hands, started intermittently, then became pretty constant. Certain movements and activities seem to trigger her tingling. Was told could be carpal tunnel. Continues taking her methotrexate 0.8 cc weekly, her Enbrel weekly. She completed 6 months twice a week Enbrel and she felt a lot better than with weekly. She continued to hurts but not as bad. Having trouble with weight gain. Was worried about her thyroid. Had recent labs? For TSH only. Was told it's okay. Wondering about her diet. Reviewed her meds in great details. Needing all refills. 08/19/16: Not seen in a while. Prolonged visit completed, numerous questions, concerns, numerous updates, extensive amount of counseling completed. Since last seen she's been miserable with her symptoms, continues to have significant pain and throbbing stiffness and limitation all over, her entire bodies and pain, specially both hands her MCP PIP, with enlargement, limited tobacco dipper, pain in her wrists, her neck, both shoulders hurting pretty bad for few weeks now, having hard time sleeping overnight from her pain in her severe insomnia, her low back and sides, she feels pretty stiff when she wakes up. She had left hand carpal tunnel surgery, did well for 3 days than her pain and numbness returned. Having similar symptoms over the right hand. Struggling a lot with her insomnia, numerous questions about that. Taking Flexeril. Not sure about gabapentin,? She tried it before but has not been using. She has been using Enbrel weekly, she remembers feeling best when she used twice a week, wondering about going up to twice a week again at least for few months. Taking her methotrexate weekly as well. Reviewed her meds, reviewed her labs in details. Noted elevated cholesterol, her LDL 169. 03/05/17: Not seen in over 6 months. Since last seen, she has been following my advice, she cut back a lot on all sugar, carbs and desserts, candy etc. She feels a great difference, she has lost a lot of weight, over 30 pounds at least. She has been feeling so much better, nothing compared to before when she was so debilitated, miserable with her symptoms. She has persistent pain stiffness throbbing enlargement but not as bad, tolerable pain in both hands, her MCP PIP DIP joints, stable enlargement spurring, no new deviations, improved pain over her neck, shoulders low back, both knees, and feet. She has been able to do a lot more. She feels less stiff and slightly less tired. Continues to struggle with her sleep but not as bad at all even her, she is thankful for the encouragement and advices. Persistent nail disease but nothing like before at all. Greatly improved ridging, pitting and lysis. She continues taking her Enbrel weekly. She stopped her methotrexate?? Not sure why. I reviewed all of my previous notes, did not see why and where I told her to stop it. Struggling a lot with her thyroid, continues to have very high TSH, when I did her labs, with 11, most recently was over 33!!!! With her background thyroid cancer, quite concerning. Following closely with endocrinology. Reviewed all available labs. Very high LDL, reviewed and counseled. 10/28/17: Pretty difficult visit with a lot to cover and review, complex underlying conditions, sensitive decisions for therapy, management plan. Not seen in so long. Since her last visit she has been struggling with her health in general. She continues with severe pain, pretty much all over her body, spine, neck shoulders low back and sides, knees and feet. Overall and very very relatively better over her knees and feet compared to before specially after significant weight loss she had. She seems to be tremendously worse over both hands, wrists, having more swelling, throbbing pain aching and new painful nodules, very sensitive to touch, they seem to come and go sometimes are more pronounced than other times, having hard time using her wrists and hands for simple tasks, her right seem to be worse. Significant overall fatigue exhaustion. Continues to have insomnia major trouble sleeping. Continues to have nail changes, pitting ridging lysis, no major rashes or psoriasis. Finally her TSH was repeated and was suppressed this time, after the most recent over spring. She lost 15 pounds from her last visit, trying intentionally, has been watching her food choices. Reviewed her other labs. Continues taking Enbrel weekly, she's not sure helping given her significant worsening symptoms in both hands and wrists, wondering about other options. Continues to be off methotrexate. 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 * Surgery (11/10/06): total thyroidectomy, Dr. Jesus Cordova. * GAMING (): treatment 100 mCi 131-Iodine, TSH=77.57 * Scan (): postRx scan, 2 spots in thyroid bed, else negative (): Thyrogen-stim 4.3 mCi 131-I total body scan, uptake right submandibuar area (inflamed salivary gland?), but otherwise no evidence for disease local or metastatic * Ultrasound (): no suspicious adenopathy along great vessels or in lateral neck on either side. No masses in thyroid bed. (11/09/09): no suspicious adenopathy along great vessels or in lateral neck on either side. No masses in thyroid bed. (01/31/11): no suspicious adenopathy along great vessels or in lateral neck on either side. No masses in thyroid bed. * Thyroglobulin (): TG=0.5 ng/ml, Ab 6.1 IU/L (0-14), TSH=77.57 (): TG <0.2 ng/ml, Ab neg (): TG <0.2 ng/ml, Ab neg (): TG <0.2 ng/ml, Ab neg, Thyrogen stim (04/25/ - Thyroid cancer (HCC) 2004 removed, radioactive iodine ablation - Vitamin D deficiency PAST SURGICAL HISTORY Procedure Laterality Date - BREAST AUGMENTATION W/PROSTHETIC IMPLANT 2000 bilateral implants - BX BREAST PERC NEED W/GUID 10/29/11 U/S needle core left axillary LN - COLONOSCOP W/ OR W/O BRSH SPEC 07/26/2010 Colonoscopy - EGD W/O BRSH SPECIMEN W/BX 11/06/06 Hiatal hernia, gastritis, retained food - EGD W/O OR W/BRUSH/WASH EGD - EGD W/O OR W/BRUSH/WASH 03/15/2015 EGD - FNA (FINE NEEDLE ASPIRATION) 10/15/06 U/S FNA right thyroid nodule - FNA WITH IMAGING 09/22/11 U/S FNA left axillary mass - KNEE ARTHROSCOPY Left 2009 - LIGATE FALLOPIAN TUBE Tubal ligation - PAST SURGICAL HISTORY OF 2010 removal of implants AND replace AND pannilectomy - REMOVE TONSILS/ADENOIDS,<12 Y/O Tonsillectomy - REVISE MEDIAN N/CARPAL TUNNEL SURG Left 05/30/16 Carpal tunnel decomp - REVISE MEDIAN N/CARPAL TUNNEL SURG Right 09/26/2016 Carpal tunnel decomp - SYNOVECTOMY EACH 1999 left wrist - THYROIDECTOMY 11/10/06 - VAGINAL HYSTERECTOMY 2003 Hysterectomy, vaginal Health Maintenance Procedures HEPATITIS C SCREENING due on 2004 MAMMOGRAM due on 01/18/2015 Discussed health maintenance, including regular aerobic exercise, low fat diet, and periodic exams. Health Maintenance Immunizations Given Immunizations: Immunization History Administered Date(s) Administered Influenza Seasonal Inj Quadrivalent Age 3+ 08/18/2016 08/17/2017 Influenza Vaccine, Split-Non Spec 07/08/2012 Pneumovax 08/09/2011 TD Adult 12/02/2005 Tdap (Age 7+) 12/31/2014 Current Outpatient Prescriptions: gabapentin (NEURONTIN) 300 mg capsule Take 3 capsules by mouth once daily for 90 days. levothyroxine (SYNTHROID) 125 mcg tablet Take 1 tablet by mouth once daily. phentermine-topiramate ER (QSYMIA) 15-92 mg 24 Hr Capsule Take 1 capsule by mouth once daily. Etanercept (ENBREL SURECLICK) 50 mg/mL (0.98 mL) pnij Inject 50 mg subcutaneously once each week. cyclobenzaprine (FLEXERIL) 10 mg tablet Take 1 tablet by mouth twice daily as needed. traMADol-acetaminophen (ULTRACET) 37.5-325 mg per tablet Take 1 tablet by mouth three times daily. hydroxychloroquine (PLAQUENIL) 200 mg tablet Take 1 tablet by mouth twice daily. triamcinolone acetonide (KENALOG) 0.5 % cream Apply to affected area. APPLY SMALL AMOUNT TO AFFECTED AREAS 2-3 TIMES PER DAY FOR RASH/ITCHING Cholecalciferol, Vitamin D3, 2,000 unit cap Take 1 tablet by mouth once daily. vitamin b complex (B COMPLEX 1) tab Take 1 tablet by mouth once daily. omeprazole (PRILOSEC) 20 mg capsule Take 1 capsule by mouth once daily. (Patient not taking: Reported on 10/28/2017 ) polyethylene glycol 3350 (MIRALAX) 17 gram/dose powder 17gm in 8oz daily until stools regular (for constipation) (Patient not taking: Reported on 10/28/2017 ) No current facility-administered medications for this visit. 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 wine Drug use: No Sexual activity: Yes Partners with: Male control/protection: Surgical Comment: hysterectomy Other Topics Concern Exercise No Comment:Sedentary Review of Systems Constitutional: No weight gain, + intentional weight loss 15 pounds, Fatigue, Weakness, No fever, Patient denies falls, No increased risk of falling Eyes (R,L): No eye pain, No eye redness, No reduced vision, No diplopia, No blurred vision, No dryness, No feeling of something in eye(s), No eye itching Ears (R,L): No tinnitus, No hearing loss Nose, Throat: No epistaxis, No loss of smell, No dryness in nose, No runny nose, No sore tongue, No bleeding gums, No sores in mouth, No loss of taste, No dryness of mouth, No frequent sore throats, No hoarseness, No dysphagia Cardiovascular: No chest pain, No arrhythmia, No palpitations, No high blood pressure, No heart murmurs Respiratory: No shortness of breath, No nocturnal dyspnea, No swollen legs, No swollen feet, No cough, No dyspnea, No hemoptysis, No wheezing Gastrointestinal: No nausea, No vomiting of blood or coffee ground material, No stomach pain relieved by food or milk, No jaundice, No constipation, No diarrhea, No blood in stool, No black stools, No heartburn Genitourinary, Female: No dysuria, No hematuria, No increased frequency of urination, No nocturia, No urinary incontinence, No kidney stone, No pelvic pain Menstrual History: No bleeding after menopause Hematologic, Lymphatic: No swollen glands, No lymph node tenderness, No anemia, Does not bleed easily Musculoskeletal: Morning stiffness, Stiffness lasting 1-2 hours, felt best on twice a week Enbrel, Joint pain, Muscle weakness, Muscle tenderness, Joint swelling, Back pain Skin: No Changes in the skin, No redness, Does not bruise easily, No pruritus, No skin rash, No Malar rash, No hives, No sun sensitivity, No tightness, No nodules/bumps, No hair loss, No skin lesion, No ulcerations, No color changes of hands or feet in the cold significant nail disease with onycholysis Neurologic: No headache, No dizziness, No syncope, No muscle spasms, Tingling, No loss of consciousness, No sensitivity or pain of hands and/or feet, No memory loss, No night sweats Psychiatric: No excessive worries, Not feeling anxious, Not easily losing temper, Not feeling depressed, Not feeling agitated, Difficulty falling asleep, Difficulty staying asleep Endocrine: No polydipsia, Not intolerant of cold, Not intolerant of heat Allergic, Immunologic: No frequent sneezing, No susceptibility to infections Other: The rest of the review of systems is unremarkable and negative or non-contributory. entire review of system and reviewed at remain as before Objective Physical Exam BP 110/80 Pulse 74 Ht 170.2 cm (5' 7) Wt 72.1 kg (159 lb) BMI 24.9 kg/m2 Constitutional: Appears well, Appearance consistent with age Mental Status: Alert, Oriented, Cooperative, Affect normal Eyes (R,L): No conjunctival injection, Eyelid normal, Sclera normal, No ciliary flush, Pupil size and shape normal, Fundoscopy normal Neck: Neck symmetrical, Trachea midline, No neck mass, No thyromegaly Lymphatic: No cervical lymphadenopathy Musculoskeletal: Joint tenderness present, Joint swelling present, Decreased ROM in joints present, Muscle strength normal, Spinal tenderness present, No SI joint tenderness present, Tender points present Severe findings in both hands, noticeable swelling and very tender to touch over MCP joints specially right second and third MCP, significant palpable spurring stable and persistent over most PIP DIP joints, stable deviation and changes, significant tender palpable nodules both wrists, specially right wrists,? Rheumatoid nodules, very subtle deviation over the index PIP joints, no other RA deformities, minimal fullness over remainder of MCP joints, bilateral wrists with great amount tenderness, minimal restriction in extension, unremarkable exam otherwise, small joint effusion in both knees, minimal fullness over both ankles, positive MTP squeeze. Diffuse tender points. Skin: No alopecia, No skin rash, No skin lesion, No skin ulcer, No Pits, No Thickening, No Color changes, No telangiectasias, Nail ridging, No Nail pitting, Onycholysis Severe nail changes with Onycholysis over her all fingernails over her right hands, several over the left hand, splinter hemorrhage, ridging. Greatly improved nail changes compared to before. Neurologic: Motor and sensory exam WNL, No tremor, Cranial nerves II to XII intact, Biceps reflex normal, Triceps reflex normal, Knee reflex normal, Ankle reflex normal, Negative Phalens test, Negative Tinels sign of wrist History Review: I have reviewed and modified as needed, the following during this visit: Allergies, Past Medical History, Past Surgical History, Past Family History, Past Social History. Lab Results: Glucose 70 05/28/2016 ALT 11 05/28/2016 WBC 4.58 05/28/2016 Hemoglobin 12.9 05/28/2016 Platelet Count 229 05/28/2016 WSR 8 11/20/2015 CRP 0.42 11/20/2015 Component Latest Ref Rn 03/12/2015 11/08/2015 11/20/2015 01/11/2016 05/28/2016 WBC 3.70 - 11.00 k/uL 4.2 (L) 4.58 RBC 3.90 - 5.20 m/uL 4.76 4.51 Hemoglobin 11.5 - 15.5 g/dL 13.6 12.9 Hematocrit 36.0 - 46.0 % 40.5 38.5 MCV 80.0 - 100.0 fL 85.1 85.4 MCH 26.0 - 34.0 pG 28.6 28.6 MCHC 30.5 - 36.0 g/dL 33.6 33.5 RDW 11.8 - 14.5 % 13.0 RDW-SD 35.1 - 46.3 fl 40.1 Platelet Count 150 - 400 k/uL 235 229 MPV 9.0 - 12.7 fL 10.5 10.5 Seg Neutrophil % 51.8 IMMATURE GRANS % 0.00 Lymphocyte % 32.0 Monocyte % 9.4 Eosinophil % 6.3 Basophil % 0.5 SEG. NEUT. # 1.35 - 7.21 thou/cmm 2.18 IMMATURE GRANS # 0.00 - 0.05 thou/cmm 0.00 LYMPHOCYTE # 0.68 - 2.93 thou/cmm 1.34 MONOCYTE # 0.19 - 0.80 thou/cmm 0.39 EOSINOPHIL # 0.00 - 0.36 thou/cmm 0.26 BASOPHIL # 0.00 - 0.08 thou/cmm 0.02 RDW-CV 11.5 - 15.0 % 13.7 Neut% % 49.8 Abs Neut (ANC) 1.45 - 7.50 k/uL 2.28 Lymph% % 36.2 Abs Lymph 1.00 - 4.00 k/uL 1.66 [place]% % 7.2 Abs [place] 0.00 - 0.86 k/uL 0.33 Eosin% % 5.9 Abs Eosin 0.00 - 0.45 k/uL 0.27 Baso% % 0.9 Abs Baso 0.00 - 0.10 k/uL 0.04 Diff Type Auto Diff Protein, Total 6.3 - 8.0 g/dL 7.9 7.6 Albumin 3.9 - 4.9 g/dL 4.3 4.4 Calcium 8.5 - 10.5 mg/dL 9.5 9.5 Bilirubin, Total 0.2 - 1.3 mg/dL 0.4 0.4 Alkaline Phosphatase 32 - 117 U/L 90 68 AST 13 - 35 U/L 23 21 Glucose 74 - 99 mg/dL 73 70 (L) BUN 7 - 21 mg/dL 18 18 Creatinine 0.58 - 0.96 mg/dL 0.97 (H) 1.03 (H) Sodium 136 - 144 mmol/L 141 143 Potassium 3.7 - 5.1 mmol/L 4.5 3.8 Chloride 97 - 105 mmol/L 104 103 CO2 22 - 30 mmol/L 30 26 Anion Gap 9 - 18 mmol/L 12 14 ALT 7 - 38 U/L 26 11 eGFR- >60 eGFR-All Other Races . 56 Triglyceride 30 - 149 mg/dL 167 (H) Cholesterol 100 - 199 mg/dL 249 (H) HDL Cholesterol >55 mg/dL 47 (L) VLDL Cholesterol 6 - 40 mg/dL 33 LDL Cholesterol 60 - 129 mg/dL 169 (H) Fasting Time hrs FASTING TC:HDL Ratio 1.00 - 5.00 5.30 (H) LDL:HDL Ratio 0.50 - 3.55 3.60 (H) Non HDL Cholesterol 90 - 159 mg/dL 202 (H) CRP 0.00 - 0.30 mg/dL 0.1 0.42 (H) WSR 0 - 15 mm/hr 10 TSH 0.400 - 5.500 uU/mL 2.570 Sed Rate, W[place]gren 0 - 21 mm/hr 8 VITAMIN D, 25 OH TOTAL 30.0 - 100.0 ng/mL 40.5 Component Latest Ref Rng AND Units 10/10/2016 01/05/2017 WBC 3.70 - 11.00 k/uL 4.17 RBC 3.90 - 5.20 m/uL 4.69 Hemoglobin 11.5 - 15.5 g/dL 13.2 Hematocrit 36.0 - 46.0 % 41.3 MCV 80.0 - 100.0 fL 88.1 MCH 26.0 - 34.0 pG 28.1 MCHC 30.5 - 36.0 g/dL 32.0 RDW-CV 11.5 - 15.0 % 13.4 Platelet Count 150 - 400 k/uL 250 MPV 9.0 - 12.7 fL 10.7 Neut% % 60.2 Abs Neut (ANC) 1.45 - 7.50 k/uL 2.51 Lymph% % 25.7 Abs Lymph 1.00 - 4.00 k/uL 1.07 [place]% % 9.6 Abs [place] 0.00 - 0.86 k/uL 0.40 Eosin% % 3.8 Abs Eosin 0.00 - 0.45 k/uL 0.16 Baso% % 0.7 Abs Baso 0.00 - 0.10 k/uL 0.03 Diff Type Auto Diff Protein, Total 6.3 - 8.0 g/dL 7.6 Albumin 3.9 - 4.9 g/dL 4.7 Calcium 8.6 - 10.0 mg/dL 9.9 Bilirubin, Total 0.2 - 1.3 mg/dL 0.4 Alkaline Phosphatase 32 - 117 U/L 58 AST 13 - 35 U/L 25 Glucose 74 - 99 mg/dL 88 BUN 7 - 21 mg/dL 18 Creatinine 0.58 - 0.96 mg/dL 1.00 (H) Sodium 136 - 144 mmol/L 141 Potassium 3.7 - 5.1 mmol/L 4.0 Chloride 97 - 105 mmol/L 103 CO2 22 - 30 mmol/L 23 Anion Gap 9 - 18 mmol/L 15 ALT 7 - 38 U/L 15 eGFR- >60 eGFR-All Other Races . 57 Triglyceride 30 - 149 mg/dL 104 Cholesterol 100 - 199 mg/dL 260 (H) HDL Cholesterol >55 mg/dL 51 (L) VLDL Cholesterol 6 - 40 mg/dL 21 LDL Cholesterol 60 - 129 mg/dL 188 (H) Fasting Time hrs 16 TC:HDL Ratio 1.00 - 5.00 5.10 (H) LDL:HDL Ratio 0.50 - 3.55 3.69 (H) Non HDL Cholesterol 90 - 159 mg/dL 209 (H) Thyroglobulin 0.8 - 49.0 ng/mL 0.4 (L) TG Antibody Screen <14.4 IU/mL 3.5 CRP <0.9 mg/dL 0.2 TSH 0.400 - 5.500 uU/mL 11.360 (H) 33.360 (H) WSR 0 - 20 mm/hr 8 Free T4 0.9 - 1.7 ng/dL 0.5 (L) Component Latest Ref Rng AND Units 10/26/2017 WBC 3.70 - 11.00 k/uL 4.30 RBC 3.90 - 5.20 m/uL 4.52 Hemoglobin 11.5 - 15.5 g/dL 12.3 Hematocrit 36.0 - 46.0 % 38.4 MCV 80.0 - 100.0 fL 85.0 MCH 26.0 - 34.0 pG 27.2 MCHC 30.5 - 36.0 g/dL 32.0 RDW-CV 11.5 - 15.0 % 13.2 Platelet Count 150 - 400 k/uL 220 MPV 9.0 - 12.7 fL 10.3 Neut% % 48.6 Abs Neut (ANC) 1.45 - 7.50 k/uL 2.08 Lymph% % 35.3 Abs Lymph 1.00 - 4.00 k/uL 1.52 [place]% % 10.5 Abs [place] <0.87 k/uL 0.45 Eosin% % 4.9 Abs Eosin <0.46 k/uL 0.21 Baso% % 0.7 Abs Baso <0.11 k/uL 0.03 Nucleated Reds 0 /100 WBC 0.0 Absolute nRBC <0.01 k/uL <0.01 Diff Type Auto Diff Protein, Total 6.3 - 8.0 g/dL 7.0 Albumin 3.9 - 4.9 g/dL 4.0 Calcium 8.5 - 10.2 mg/dL 9.2 Bilirubin, Total 0.2 - 1.3 mg/dL 0.3 Alkaline Phosphatase 32 - 117 U/L 55 AST 13 - 35 U/L 25 Glucose 74 - 99 mg/dL 80 BUN 7 - 21 mg/dL 16 Creatinine 0.58 - 0.96 mg/dL 0.97 (H) Sodium 136 - 144 mmol/L 144 Potassium 3.7 - 5.1 mmol/L 3.9 Chloride 97 - 105 mmol/L 107 (H) CO2 22 - 30 mmol/L 23 Anion Gap 9 - 18 mmol/L 14 ALT 7 - 38 U/L 17 eGFR- >60 eGFR-All Other Races . 59 Triglyceride 30 - 149 mg/dL Cholesterol, Total 100 - 199 mg/dL HDL Cholesterol >55 mg/dL VLDL Cholesterol 6 - 40 mg/dL LDL Cholesterol 60 - 129 mg/dL Fasting Time hrs TC:HDL Ratio 1.00 - 5.00 LDL:HDL Ratio 0.50 - 3.55 Non HDL Cholesterol 90 - 159 mg/dL Celiac Pnl Interpretation HLA-DQA1 Genotype HLA-DQB1 Genotype Celiac Risk Haplotype Negative IgA 78 - 391 mg/dL Transglutaminase Ab, IgA <20 Units Celiac Category Celiac Panel Comment CRP <0.9 mg/dL 0.1 TSH 0.400 - 5.500 uU/mL 0.055 (L) WSR 0 - 20 mm/hr Free T4 0.9 - 1.7 ng/dL Assessment (L40.50) Psoriasis with arthropathy (HCC) (primary encounter diagnosis) (M35.01) Sjogren's syndrome with keratoconjunctivitis sicca (HCC) (M05.79) Rheumatoid arthritis involving multiple sites with positive rheumatoid factor (HCC) (M54.2) Neck pain (G47.00) Insomnia, unspecified type (M54.40, G89.29) Chronic bilateral low back pain with sciatica, sciatica laterality unspecified (C73) Thyroid cancer (HCC) Plan Office Visit on 10/28/17 -XR HAND GENERAL 3V PA/LAT/OBL LT -XR HAND GENERAL 3V PA/LAT/OBL RT Patient Education: Patient Education was given today. 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 She was doing well with methotrexate and Enbrel combination, OFF methotrexate in Early 2012. Continued to have very active disease, several swollen tender joints, prolonged morning stiffness. Problems with abnormal sleep cycle, chronic sleep loss, secondary fibromyalgia, secondary OA, stress, problems with suppressing her thyroid remnant cells. Persistent fatigue as well multifactorial. High intake of sugar / carbs. Working hard on that. B hands tingling . Review w/pt all possibilities. Main concern w/her PsA and RA overlap, would be neck source, ?radiculopathy .. CTS. L CTS sx Severe disease with definite combination seropositive CCP positive RA along with classic psoriatic arthritis as well, causing her nail changes, enthesitis, dactylitis,.... High LDL High risk for CAD Persistent insomnia - Improved with healthier diet and sleep hygiene Mod-severe joint pain Impressively improved with adjustment of diet, lifestyle and improved sleep Very high LDL Excellent intentional weight loss Poorly controlled hypothyroid/thyroid cancer status - TSH was 33 ! Finally suppressed as supposed to with thyroid cancer ! Worsening B hands/wrists swelling, nodules - ?rheumatoid nodules vs cysts, ?fluid collection , other? Plan: Rheumatoid factor positive CCP positive RA. Evidence of disease activity Severe psoriatic arthritis, very rare overlap association (have few patients with both diseases) ... sausage fingers both hands. Enbrel : Completed 6 months double dose twice a week given her such severe disease, and given her overlap with psoriatic arthritis. Try again twice/week for few months given severe sx and overlap. Methotrexate 1 cc Subcutaneous - Patient stopped on her own?? continue being off for now, low threshold to return If symptoms worsen. Bilateral hand tingling, resolved Previous cervical spine imaging Wrist splints overnightAs needed Update wrists and hand imaging Consider hand surgery input Plaquenil Updates yearly eye exam Severe nail disease, greatly improved Secondary Sjogren's stable Abnormal sleep pattern was working nights - not anymore!! Long discussion about sleep hygiene. Flector patch as needed Left wrist pain stable. Healthier lifestyle and diet. Reviewed in great details. Cut back on sugar and carbs. Reviewed to keep about 25 g of sugar limits, if possible, to help her systemic inflammation and pain. Resources given to patient several books. pain control - Ultracet Thyroid problems following with endocrinology and PCP 4 months CNOV Observed: 10/28/2017 Status: COMPLETED Source: [facility] 4:00 PM [facility] OTHER [facility] REPOSITORY Office Visit (AGRHEUHWN) MARIMARAMY V ([id number]) 1960 F Date Time Provider Department 10/28/17 4:00 PM PROMISE HOANG During your visit today, we recorded the following information about you: Pulse Blood pressure Weight Height 74/minute 110/80 72.1 kg 1.702 m Promise Hoang MD 10/28/2017 6:09 PM Signed Subjective History of Present Illness: General HPI: Amy is here for her CCP positive rheumatoid factor positive RA, associated nail disease, dactylitis, inflammatory back symptoms 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 Quite severe disease. Background of papillary thyroid cancer. Was NOT seen for THREE years between 01/15 and 10/21 01/15: She has been doing relatively okay. She's struggling with her thyroid status, with her history of papillary cancer, her TSH was found to be very high, currently being worked up and seen endocrinology soon to adjust this. 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 Tried several things including melatonin, diazepam, and recently Ambien. Non-of these helps. She has tolerable joint symptoms, no significant swelling or pain. Improved symptoms in the left wrists. She's been doing her Enbrel injections weekly and methotrexate 6 once a week. She has no difficulties with her meds or injections, no side effects, no recent major infection. She had a recent bug bites over her left tenriism and it's swollen with small lymph node swelling as well given antibiotics for her primary care physician. 10/25/13: Since last seen, which has been almost 3 years, has been doing about the same. Continues to have significant amount of joint pain, and every single joints, neck shoulders, both hands her MCP PIP even DIP joints and wrists, low back, both knees and her feet pretty bad. She has significant amount of stiffness and pain when she gets up after trying to sleep. She continues to have fatigue and insomnia. 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 Tried many things which didn't seem to help. She cannot sleep more than 4 hours at the most and fragmented, non-refreshing. She continues Enbrel weekly. Has been off methotrexate in a while since it caused? Liver toxicity. Had significant problems with her knees, had to have arthroscopic knee surgery, right knee was drained and injected recently. Continues to have pretty bad nail disease, intermittent dactylitis. Thyroid has been pretty stable. She has not had labs and so many months!! 05/25/14: Continues being very miserable. Hurting all over, so sensitive to touch, neck shoulders elbows, both hands are terribly painful, specially both middle fingers, so swollen and tight, sausage fingers, miserable over her entire back and sides, both feet. Continues to have night shifts, which is causing her severe destructive sleep, unable to catch up. Has extreme fatigue exhaustion and insomnia. Continues Enbrel weekly. Not sure if it's helping her or not. Has not been on prednisone in a while. Has not had labs in a while. 08/16/14: Seems to be slowly getting better, very subtle improvement in general, confirmed by her who was present today. Continues to have extreme pain all over her joints, her neck shoulders, both hands really bad over all PIP joints MCPs and wrists, throbbing pain and swelling, difficulty with her tobacco dipper, pain over both elbows low back and sides, her ankles really bad in the bottom of her feet. She finally quit her job. Has normal circadian routine finally. 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 She has been struggling with her thyroid, her TSH was 5.7 recently, Synthroid dose was increased. Going for further labs. Continues to have severe nail changes. Taking her methotrexate without any interruptions, taking her Enbrel twice a week over the past 1-1/2 months or so. She believes it's helping her more taking twice a week. Reviewed her labs together. 01/17/15: Continues to be miserable. She unfortunately was off her treatment for over 3 weeks after stepping on a reema nail while working in her yard. She had a wound on her right foot, which eventually healed nicely. She was off both her methotrexate and Enbrel. Previous to that, she completed twice a week Enbrel course for about 3 months and it made her feel slightly better not completely. She continues to have severe pain all over her entire body, her neck and shoulders, both hands the worst, swelling tightness and stiffness, throbbing over all joints, visible swelling and dactylitis, she's struggling with pain over her knees ankles and feet. Her low back and sides. She's been suffering also a lot with her nails. Breaking off and hurting so bad. Most of her fingernails looking very bad. She is also having trouble with her thyroid status. TSH has been fluctuating. Also playing a role with her severe symptoms. Asking about disability. She is not able to work anymore. 11/20/15: Has not been seen in a long time. Numerous issues concerns questions, counseling needed during the visit. She continues to be incredibly miserable with her pain. Hurting pretty much in every joint and soft tissue, hurting pretty bad over both hands, her MCP PIP DIP joints with enlargement, tightness throbbing, even her nails hurt, continues to have severe nail changes with lysis ridges pitting and black lines (splinter hemorrhages), significant pain over the entire spine low back and sides, both knees hurt pretty bad, ankles and feet. Recently having more pain in her neck, around the occipital area, also noticing tingling numbness in her hands, started intermittently, then became pretty constant. Certain movements and activities seem to trigger her tingling. Was told could be carpal tunnel. Continues taking her methotrexate 0.8 cc weekly, her Enbrel weekly. She completed 6 months twice a week Enbrel and she felt a lot better than with weekly. She continued to hurts but not as bad. Having trouble with weight gain. Was worried about her thyroid. Had recent labs? For TSH only. Was told it's okay. Wondering about her diet. Reviewed her meds in great details. Needing all refills. 08/19/16: Not seen in a while. Prolonged visit completed, numerous questions, concerns, numerous updates, extensive amount of counseling completed. Since last seen she's been miserable with her symptoms, continues to have significant pain and throbbing stiffness and limitation all over, her entire bodies and pain, specially both hands her MCP PIP, with enlargement, limited tobacco dipper, pain in her wrists, her neck, both shoulders hurting pretty bad for few weeks now, having hard time sleeping overnight from her pain in her severe insomnia, her low back and sides, she feels pretty stiff when she wakes up. She had left hand carpal tunnel surgery, did well for 3 days than her pain and numbness returned. Having similar symptoms over the right hand. Struggling a lot with her insomnia, numerous questions about that. Taking Flexeril. Not sure about gabapentin,? She tried it before but has not been using. She has been using Enbrel weekly, she remembers feeling best when she used twice a week, wondering about going up to twice a week again at least for few months. Taking her methotrexate weekly as well. Reviewed her meds, reviewed her labs in details. Noted elevated cholesterol, her LDL 169. 03/05/17: Not seen in over 6 months. Since last seen, she has been following my advice, she cut back a lot on all sugar, carbs and desserts, candy etc. She feels a great difference, she has lost a lot of weight, over 30 pounds at least. She has been feeling so much better, nothing compared to before when she was so debilitated, miserable with her symptoms. She has persistent pain stiffness throbbing enlargement but not as bad, tolerable pain in both hands, her MCP PIP DIP joints, stable enlargement spurring, no new deviations, improved pain over her neck, shoulders low back, both knees, and feet. She has been able to do a lot more. She feels less stiff and slightly less tired. Continues to struggle with her sleep but not as bad at all even her, she is thankful for the encouragement and advices. Persistent nail disease but nothing like before at all. Greatly improved ridging, pitting and lysis. She continues taking her Enbrel weekly. She stopped her methotrexate?? Not sure why. I reviewed all of my previous notes, did not see why and where I told her to stop it. Struggling a lot with her thyroid, continues to have very high TSH, when I did her labs, with 11, most recently was over 33!!!! With her background thyroid cancer, quite concerning. Following closely with endocrinology. Reviewed all available labs. Very high LDL, reviewed and counseled. 10/28/17: Pretty difficult visit with a lot to cover and review, complex underlying conditions, sensitive decisions for therapy, management plan. Not seen in so long. Since her last visit she has been struggling with her health in general. She continues with severe pain, pretty much all over her body, spine, neck shoulders low back and sides, knees and feet. Overall and very very relatively better over her knees and feet compared to before specially after significant weight loss she had. She seems to be tremendously worse over both hands, wrists, having more swelling, throbbing pain aching and new painful nodules, very sensitive to touch, they seem to come and go sometimes are more pronounced than other times, having hard time using her wrists and hands for simple tasks, her right seem to be worse. Significant overall fatigue exhaustion. Continues to have insomnia major trouble sleeping. Continues to have nail changes, pitting ridging lysis, no major rashes or psoriasis. Finally her TSH was repeated and was suppressed this time, after the most recent over spring. She lost 15 pounds from her last visit, trying intentionally, has been watching her food choices. Reviewed her other labs. Continues taking Enbrel weekly, she's not sure helping given her significant worsening symptoms in both hands and wrists, wondering about other options. Continues to be off methotrexate. 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 * Surgery (11/10/06): total thyroidectomy, Dr. Jesus Cordova. * GAMING (): treatment 100 mCi 131-Iodine, TSH=77.57 * Scan (): postRx scan, 2 spots in thyroid bed, else negative (): Thyrogen- stim 4.3 mCi 131-I total body scan, uptake right submandibuar area (inflamed salivary gland?), but otherwise no evidence for disease local or metastatic * Ultrasound (): no suspicious adenopathy along great vessels or in lateral neck on either side. No masses in thyroid bed. (11/09/09): no suspicious adenopathy along great vessels or in lateral neck on either side. No masses in thyroid bed. (01/31/11): no suspicious adenopathy along great vessels or in lateral neck on either side. No masses in thyroid bed. * Thyroglobulin (): TG=0.5 ng/ml, Ab 6.1 IU/L (0-14), TSH=77.57 (): TG ANDlt;0.2 ng/ml, Ab neg (): TG ANDlt;0.2 ng/ml, Ab neg (): TG ANDlt;0.2 ng/ml, Ab neg, Thyrogen stim (04/25/ - Thyroid cancer (HCC) 2004 removed, radioactive iodine ablation - Vitamin D deficiency PAST SURGICAL HISTORY Procedure Laterality Date - BREAST AUGMENTATION W/PROSTHETIC IMPLANT 2000 bilateral implants - BX BREAST PERC NEED W/GUID 10/29/11 U/S needle core left axillary LN - COLONOSCOP W/ OR W/O BRSH SPEC 07/26/2010 Colonoscopy - EGD W/O BRSH SPECIMEN W/BX 11/06/06 Hiatal hernia, gastritis, retained food - EGD W/O OR W/BRUSH/WASH EGD - EGD W/O OR W/BRUSH/WASH 03/15/2015 EGD - FNA (FINE NEEDLE ASPIRATION) 10/15/06 U/S FNA right thyroid nodule - FNA WITH IMAGING 09/22/11 U/S FNA left axillary mass - KNEE ARTHROSCOPY Left 2009 - LIGATE FALLOPIAN TUBE Tubal ligation - PAST SURGICAL HISTORY OF 2010 removal of implants ANDamp; replace ANDamp; pannilectomy - REMOVE TONSILS/ADENOIDS,ANDlt;12 Y/O Tonsillectomy - REVISE MEDIAN N/CARPAL TUNNEL SURG Left 05/30/16 Carpal tunnel decomp - REVISE MEDIAN N/CARPAL TUNNEL SURG Right 09/26/2016 Carpal tunnel decomp - SYNOVECTOMY EACH 1999 left wrist - THYROIDECTOMY 11/10/06 - VAGINAL HYSTERECTOMY 2003 Hysterectomy, vaginal Health Maintenance Procedures HEPATITIS C SCREENING due on 2004 MAMMOGRAM due on 01/18/2015 Discussed health maintenance, including regular aerobic exercise, low fat diet, and periodic exams. Health Maintenance Immunizations Given Immunizations: Immunization History Administered Date(s) Administered Influenza Seasonal Inj Quadrivalent Age 3+ 08/18/2016 08/17/2017 Influenza Vaccine, Split-Non Spec 07/08/2012 Pneumovax 08/09/2011 TD Adult 12/02/2005 Tdap (Age 7+) 12/31/2014 Current Outpatient Prescriptions: gabapentin (NEURONTIN) 300 mg capsule Take 3 capsules by mouth once daily for 90 days. levothyroxine (SYNTHROID) 125 mcg tablet Take 1 tablet by mouth once daily. phentermine-topiramate ER (QSYMIA) 15-92 mg 24 Hr Capsule Take 1 capsule by mouth once daily. Etanercept (ENBREL SURECLICK) 50 mg/mL (0.98 mL) pnij Inject 50 mg subcutaneously once each week. cyclobenzaprine (FLEXERIL) 10 mg tablet Take 1 tablet by mouth twice daily as needed. traMADol-acetaminophen (ULTRACET) 37.5-325 mg per tablet Take 1 tablet by mouth three times daily. hydroxychloroquine (PLAQUENIL) 200 mg tablet Take 1 tablet by mouth twice daily. triamcinolone acetonide (KENALOG) 0.5 % cream Apply to affected area. APPLY SMALL AMOUNT TO AFFECTED AREAS 2-3 TIMES PER DAY FOR RASH/ITCHING Cholecalciferol, Vitamin D3, 2,000 unit cap Take 1 tablet by mouth once daily. vitamin b complex (B COMPLEX 1) tab Take 1 tablet by mouth once daily. omeprazole (PRILOSEC) 20 mg capsule Take 1 capsule by mouth once daily. (Patient not taking: Reported on 10/28/2017 ) polyethylene glycol 3350 (MIRALAX) 17 gram/dose powder 17gm in 8oz daily until stools regular (for constipation) (Patient not taking: Reported on 10/28/2017 ) No current facility-administered medications for this visit. 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 wine Drug use: No Sexual activity: Yes Partners with: Male control/protection: Surgical Comment: hysterectomy Other Topics Concern Exercise No Comment:Sedentary Review of Systems Constitutional: No weight gain, + intentional weight loss 15 pounds, Fatigue, Weakness, No fever, Patient denies falls, No increased risk of falling Eyes (R,L): No eye pain, No eye redness, No reduced vision, No diplopia, No blurred vision, No dryness, No feeling of something in eye(s), No eye itching Ears (R,L): No tinnitus, No hearing loss Nose, Throat: No epistaxis, No loss of smell, No dryness in nose, No runny nose, No sore tongue, No bleeding gums, No sores in mouth, No loss of taste, No dryness of mouth, No frequent sore throats, No hoarseness, No dysphagia Cardiovascular: No chest pain, No arrhythmia, No palpitations, No high blood pressure, No heart murmurs Respiratory: No shortness of breath, No nocturnal dyspnea, No swollen legs, No swollen feet, No cough, No dyspnea, No hemoptysis, No wheezing Gastrointestinal: No nausea, No vomiting of blood or coffee ground material, No stomach pain relieved by food or milk, No jaundice, No constipation, No diarrhea, No blood in stool, No black stools, No heartburn Genitourinary, Female: No dysuria, No hematuria, No increased frequency of urination, No nocturia, No urinary incontinence, No kidney stone, No pelvic pain Menstrual History: No bleeding after menopause Hematologic, Lymphatic: No swollen glands, No lymph node tenderness, No anemia, Does not bleed easily Musculoskeletal: Morning stiffness, Stiffness lasting 1-2 hours, felt best on twice a week Enbrel, Joint pain, Muscle weakness, Muscle tenderness, Joint swelling, Back pain Skin: No Changes in the skin, No redness, Does not bruise easily, No pruritus, No skin rash, No Malar rash, No hives, No sun sensitivity, No tightness, No nodules/bumps, No hair loss, No skin lesion, No ulcerations, No color changes of hands or feet in the cold significant nail disease with onycholysis Neurologic: No headache, No dizziness, No syncope, No muscle spasms, Tingling, No loss of consciousness, No sensitivity or pain of hands and/or feet, No memory loss, No night sweats Psychiatric: No excessive worries, Not feeling anxious, Not easily losing temper, Not feeling depressed, Not feeling agitated, Difficulty falling asleep, Difficulty staying asleep Endocrine: No polydipsia, Not intolerant of cold, Not intolerant of heat Allergic, Immunologic: No frequent sneezing, No susceptibility to infections Other: The rest of the review of systems is unremarkable and negative or non-contributory. entire review of system and reviewed at remain as before Objective Physical Exam BP 110/80 Pulse 74 Ht 170.2 cm (5' 7ANDquot;) Wt 72.1 kg (159 lb) BMI 24.9 kg/m2 Constitutional: Appears well, Appearance consistent with age Mental Status: Alert, Oriented, Cooperative, Affect normal Eyes (R,L): No conjunctival injection, Eyelid normal, Sclera normal, No ciliary flush, Pupil size and shape normal, Fundoscopy normal Neck: Neck symmetrical, Trachea midline, No neck mass, No thyromegaly Lymphatic: No cervical lymphadenopathy Musculoskeletal: Joint tenderness present, Joint swelling present, Decreased ROM in joints present, Muscle strength normal, Spinal tenderness present, No SI joint tenderness present, Tender points present Severe findings in both hands, noticeable swelling and very tender to touch over MCP joints specially right second and third MCP, significant palpable spurring stable and persistent over most PIP DIP joints, stable deviation and changes, significant tender palpable nodules both wrists, specially right wrists,? Rheumatoid nodules, very subtle deviation over the index PIP joints, no other RA deformities, minimal fullness over remainder of MCP joints, bilateral wrists with great amount tenderness, minimal restriction in extension, unremarkable exam otherwise, small joint effusion in both knees, minimal fullness over both ankles, positive MTP squeeze. Diffuse tender points. Skin: No alopecia, No skin rash, No skin lesion, No skin ulcer, No Pits, No Thickening, No Color changes, No telangiectasias, Nail ridging, No Nail pitting, Onycholysis Severe nail changes with Onycholysis over her all fingernails over her right hands, several over the left hand, splinter hemorrhage, ridging. Greatly improved nail changes compared to before. Neurologic: Motor and sensory exam WNL, No tremor, Cranial nerves II to XII intact, Biceps reflex normal, Triceps reflex normal, Knee reflex normal, Ankle reflex normal, Negative Phalens test, Negative Tinels sign of wrist History Review: I have reviewed and modified as needed, the following during this visit: Allergies, Past Medical History, Past Surgical History, Past Family History, Past Social History. Lab Results: Glucose 70 05/28/2016 ALT 11 05/28/2016 WBC 4.58 05/28/2016 Hemoglobin 12.9 05/28/2016 Platelet Count 229 05/28/2016 WSR 8 11/20/2015 CRP 0.42 11/20/2015 Component Latest Ref Rng 03/12/2015 11/08/2015 11/20/2015 01/11/2016 05/28/2016 WBC 3.70 - 11.00 k/uL 4.2 (L) 4.58 RBC 3.90 - 5.20 m/uL 4.76 4.51 Hemoglobin 11.5 - 15.5 g/dL 13.6 12.9 Hematocrit 36.0 - 46.0 % 40.5 38.5 MCV 80.0 - 100.0 fL 85.1 85.4 MCH 26.0 - 34.0 pG 28.6 28.6 MCHC 30.5 - 36.0 g/dL 33.6 33.5 RDW 11.8 - 14.5 % 13.0 RDW-SD 35.1 - 46.3 fl 40.1 Platelet Count 150 - 400 k/uL 235 229 MPV 9.0 - 12.7 fL 10.5 10.5 Seg Neutrophil % 51.8 IMMATURE GRANS % 0.00 Lymphocyte % 32.0 Monocyte % 9.4 Eosinophil % 6.3 Basophil % 0.5 SEG. NEUT. # 1.35 - 7.21 thou/cmm 2.18 IMMATURE GRANS # 0.00 - 0.05 thou/cmm 0.00 LYMPHOCYTE # 0.68 - 2.93 thou/cmm 1.34 MONOCYTE # 0.19 - 0.80 thou/cmm 0.39 EOSINOPHIL # 0.00 - 0.36 thou/cmm 0.26 BASOPHIL # 0.00 - 0.08 thou/cmm 0.02 RDW-CV 11.5 - 15.0 % 13.7 Neut% % 49.8 Abs Neut (ANC) 1.45 - 7.50 k/uL 2.28 Lymph% % 36.2 Abs Lymph 1.00 - 4.00 k/uL 1.66 [place]% % 7.2 Abs [place] 0.00 - 0.86 k/uL 0.33 Eosin% % 5.9 Abs Eosin 0.00 - 0.45 k/uL 0.27 Baso% % 0.9 Abs Baso 0.00 - 0.10 k/uL 0.04 Diff Type Auto Diff Protein, Total 6.3 - 8.0 g/dL 7.9 7.6 Albumin 3.9 - 4.9 g/dL 4.3 4.4 Calcium 8.5 - 10.5 mg/dL 9.5 9.5 Bilirubin, Total 0.2 - 1.3 mg/dL 0.4 0.4 Alkaline Phosphatase 32 - 117 U/L 90 68 AST 13 - 35 U/L 23 21 Glucose 74 - 99 mg/dL 73 70 (L) BUN 7 - 21 mg/dL 18 18 Creatinine 0.58 - 0.96 mg/dL 0.97 (H) 1.03 (H) Sodium 136 - 144 mmol/L 141 143 Potassium 3.7 - 5.1 mmol/L 4.5 3.8 Chloride 97 - 105 mmol/L 104 103 CO2 22 - 30 mmol/L 30 26 Anion Gap 9 - 18 mmol/L 12 14 ALT 7 - 38 U/L 26 11 eGFR- ANDgt;60 eGFR-All Other Races . 56 Triglyceride 30 - 149 mg/dL 167 (H) Cholesterol 100 - 199 mg/dL 249 (H) HDL Cholesterol ANDgt;55 mg/dL 47 (L) VLDL Cholesterol 6 - 40 mg/dL 33 LDL Cholesterol 60 - 129 mg/dL 169 (H) Fasting Time hrs FASTING TC:HDL Ratio 1.00 - 5.00 5.30 (H) LDL:HDL Ratio 0.50 - 3.55 3.60 (H) Non HDL Cholesterol 90 - 159 mg/dL 202 (H) CRP 0.00 - 0.30 mg/dL 0.1 0.42 (H) WSR 0 - 15 mm/hr 10 TSH 0.400 - 5.500 uU/mL 2.570 Sed Rate, Westergren 0 - 21 mm/hr 8 VITAMIN D, 25 OH TOTAL 30.0 - 100.0 ng/mL 40.5 Component Latest Ref Rng ANDamp; Units 10/10/2016 01/05/2017 WBC 3.70 - 11.00 k/uL 4.17 RBC 3.90 - 5.20 m/uL 4.69 Hemoglobin 11.5 - 15.5 g/dL 13.2 Hematocrit 36.0 - 46.0 % 41.3 MCV 80.0 - 100.0 fL 88.1 MCH 26.0 - 34.0 pG 28.1 MCHC 30.5 - 36.0 g/dL 32.0 RDW-CV 11.5 - 15.0 % 13.4 Platelet Count 150 - 400 k/uL 250 MPV 9.0 - 12.7 fL 10.7 Neut% % 60.2 Abs Neut (ANC) 1.45 - 7.50 k/uL 2.51 Lymph% % 25.7 Abs Lymph 1.00 - 4.00 k/uL 1.07 [place]% % 9.6 Abs [place] 0.00 - 0.86 k/uL 0.40 Eosin% % 3.8 Abs Eosin 0.00 - 0.45 k/uL 0.16 Baso% % 0.7 Abs Baso 0.00 - 0.10 k/uL 0.03 Diff Type Auto Diff Protein, Total 6.3 - 8.0 g/dL 7.6 Albumin 3.9 - 4.9 g/dL 4.7 Calcium 8.6 - 10.0 mg/dL 9.9 Bilirubin, Total 0.2 - 1.3 mg/dL 0.4 Alkaline Phosphatase 32 - 117 U/L 58 AST 13 - 35 U/L 25 Glucose 74 - 99 mg/dL 88 BUN 7 - 21 mg/dL 18 Creatinine 0.58 - 0.96 mg/dL 1.00 (H) Sodium 136 - 144 mmol/L 141 Potassium 3.7 - 5.1 mmol/L 4.0 Chloride 97 - 105 mmol/L 103 CO2 22 - 30 mmol/L 23 Anion Gap 9 - 18 mmol/L 15 ALT 7 - 38 U/L 15 eGFR- ANDgt;60 eGFR-All Other Races . 57 Triglyceride 30 - 149 mg/dL 104 Cholesterol 100 - 199 mg/dL 260 (H) HDL Cholesterol ANDgt;55 mg/dL 51 (L) VLDL Cholesterol 6 - 40 mg/dL 21 LDL Cholesterol 60 - 129 mg/dL 188 (H) Fasting Time hrs 16 TC:HDL Ratio 1.00 - 5.00 5.10 (H) LDL:HDL Ratio 0.50 - 3.55 3.69 (H) Non HDL Cholesterol 90 - 159 mg/dL 209 (H) Thyroglobulin 0.8 - 49.0 ng/mL 0.4 (L) TG Antibody Screen ANDlt;14.4 IU/mL 3.5 CRP ANDlt;0.9 mg/dL 0.2 TSH 0.400 - 5.500 uU/mL 11.360 (H) 33.360 (H) WSR 0 - 20 mm/hr 8 Free T4 0.9 - 1.7 ng/dL 0.5 (L) Component Latest Ref Rng ANDamp; Units 10/26/2017 WBC 3.70 - 11.00 k/uL 4.30 RBC 3.90 - 5.20 m/uL 4.52 Hemoglobin 11.5 - 15.5 g/dL 12.3 Hematocrit 36.0 - 46.0 % 38.4 MCV 80.0 - 100.0 fL 85.0 MCH 26.0 - 34.0 pG 27.2 MCHC 30.5 - 36.0 g/dL 32.0 RDW-CV 11.5 - 15.0 % 13.2 Platelet Count 150 - 400 k/uL 220 MPV 9.0 - 12.7 fL 10.3 Neut% % 48.6 Abs Neut (ANC) 1.45 - 7.50 k/uL 2.08 Lymph% % 35.3 Abs Lymph 1.00 - 4.00 k/uL 1.52 [place]% % 10.5 Abs [place] ANDlt;0.87 k/uL 0.45 Eosin% % 4.9 Abs Eosin ANDlt;0.46 k/uL 0.21 Baso% % 0.7 Abs Baso ANDlt;0.11 k/uL 0.03 Nucleated Reds 0 /100 WBC 0.0 Absolute nRBC ANDlt;0.01 k/uL ANDlt;0.01 Diff Type Auto Diff Protein, Total 6.3 - 8.0 g/dL 7.0 Albumin 3.9 - 4.9 g/dL 4.0 Calcium 8.5 - 10.2 mg/dL 9.2 Bilirubin, Total 0.2 - 1.3 mg/dL 0.3 Alkaline Phosphatase 32 - 117 U/L 55 AST 13 - 35 U/L 25 Glucose 74 - 99 mg/dL 80 BUN 7 - 21 mg/dL 16 Creatinine 0.58 - 0.96 mg/dL 0.97 (H) Sodium 136 - 144 mmol/L 144 Potassium 3.7 - 5.1 mmol/L 3.9 Chloride 97 - 105 mmol/L 107 (H) CO2 22 - 30 mmol/L 23 Anion Gap 9 - 18 mmol/L 14 ALT 7 - 38 U/L 17 eGFR- ANDgt;60 eGFR-All Other Races . 59 Triglyceride 30 - 149 mg/dL Cholesterol, Total 100 - 199 mg/dL HDL Cholesterol ANDgt;55 mg/dL VLDL Cholesterol 6 - 40 mg/dL LDL Cholesterol 60 - 129 mg/dL Fasting Time hrs TC:HDL Ratio 1.00 - 5.00 LDL:HDL Ratio 0.50 - 3.55 Non HDL Cholesterol 90 - 159 mg/dL Celiac Pnl Interpretation HLA-DQA1 Genotype HLA-DQB1 Genotype Celiac Risk Haplotype Negative IgA 78 - 391 mg/dL Transglutaminase Ab, IgA ANDlt;20 Units Celiac Category Celiac Panel Comment CRP ANDlt;0.9 mg/dL 0.1 TSH 0.400 - 5.500 uU/mL 0.055 (L) WSR 0 - 20 mm/hr Free T4 0.9 - 1.7 ng/dL Assessment (L40.50) Psoriasis with arthropathy (HCC) (primary encounter diagnosis) (M35.01) Sjogren's syndrome with keratoconjunctivitis sicca (HCC) (M05.79) Rheumatoid arthritis involving multiple sites with positive rheumatoid factor (HCC) (M54.2) Neck pain (G47.00) Insomnia, unspecified type (M54.40, G89.29) Chronic bilateral low back pain with sciatica, sciatica laterality unspecified (C73) Thyroid cancer (HCC) Plan Office Visit on 10/28/17 -XR HAND GENERAL 3V PA/LAT/OBL LT -XR HAND GENERAL 3V PA/LAT/OBL RT Patient Education: Patient Education was given today. 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 She was doing well with methotrexate and Enbrel combination, OFF methotrexate in Early 2012. Continued to have very active disease, several swollen tender joints, prolonged morning stiffness. Problems with abnormal sleep cycle, chronic sleep loss, secondary fibromyalgia, secondary OA, stress, problems with suppressing her thyroid remnant cells. Persistent fatigue as well multifactorial. High intake of sugar / carbs. Working hard on that. B hands tingling . Review w/pt all possibilities. Main concern w/her PsA and RA overlap, would be neck source, ?radiculopathy .. CTS. L CTS sx Severe disease with definite combination seropositive CCP positive RA along with classic psoriatic arthritis as well, causing her nail changes, enthesitis, dactylitis,.... High LDL High risk for CAD Persistent insomnia - Improved with healthier diet and sleep hygiene Mod-severe joint pain Impressively improved with adjustment of diet, lifestyle and improved sleep Very high LDL Excellent intentional weight loss Poorly controlled hypothyroid/thyroid cancer status - TSH was 33 ! Finally suppressed as supposed to with thyroid cancer ! Worsening B hands/wrists swelling, nodules - ?rheumatoid nodules vs cysts, ?fluid collection , other? Plan: Rheumatoid factor positive CCP positive RA. Evidence of disease activity Severe psoriatic arthritis, very rare overlap association (have few patients with both diseases) ... sausage fingers both hands. Enbrel : Completed 6 months double dose twice a week given her such severe disease, and given her overlap with psoriatic arthritis. Try again twice/week for few months given severe sx and overlap. Methotrexate 1 cc Subcutaneous - Patient stopped on her own?? continue being off for now, low threshold to return If symptoms worsen. Bilateral hand tingling, resolved Previous cervical spine imaging Wrist splints overnightAs needed Update wrists and hand imaging Consider hand surgery input Plaquenil Updates yearly eye exam Severe nail disease, greatly improved Secondary Sjogren's stable Abnormal sleep pattern was working nights - not anymore!! Long discussion about sleep hygiene. Flector patch as needed Left wrist pain stable. Healthier lifestyle and diet. Reviewed in great details. Cut back on sugar and carbs. Reviewed to keep about 25 g of sugar limits, if possible, to help her systemic inflammation and pain. Resources given to patient several books. pain control - Ultracet Thyroid problems following with endocrinology and PCP 4 months Referring Provider: PROMISE HOANG [[id number]] Allergies As of Date: 10/28/2017 Noted Allergy Reaction AMICAR (AMINOCAPROIC ACID) 06/20/2005 2 - Rash HUMIRA (ADALIMUMAB) 11/20/2015 4 - Hives Comments: welt at injection site Date Reviewed: 10/28/2017 Reviewed by: January Natalya - Fully Assessed Primary Visit Diagnosis:Psoriasis with arthropathy (HCC) [L40.50] Other Visit Diagnoses:Sjogren's syndrome with keratoconjunctivitis sicca (HCC) [M35.01] Rheumatoid arthritis involving multiple sites with positive rheumatoid factor (HCC) [M05.79] Neck pain [M54.2] Insomnia, unspecified type [G47.00] Chronic bilateral low back pain with sciatica, sciatica laterality unspecified [M54.40, G89.29] Thyroid cancer (HCC) [C73] Order(s):gabapentin (NEURONTIN) 300 mg capsuleTake 3 capsules by mouth once daily for 90 days.Disp: 90 capsuleRfl: 2 XR HAND GENERAL 3V PA/LAT/OBL LT [3580353] Order #: [id number] FUTURE XR HAND GENERAL 3V PA/LAT/OBL RT [[id number]] Order #: [id number] FUTURE Prescriptions as of 10/28/2017 Sig: GABAPENTIN 300 MG CAPSULE Take 3 capsules by mouth once* LEVOTHYROXINE 125 MCG TABLET Take 1 tablet by mouth once d* PHENTERMINE 15 MG-TOPIRAMATE * Take 1 capsule by mouth once * ETANERCEPT 50 MG/ML (0.98 ML)* Inject 50 mg subcutaneously o* CYCLOBENZAPRINE 10 MG TABLET Take 1 tablet by mouth twice * TRAMADOL 37.5 MG-ACETAMINOPHE* Take 1 tablet by mouth three * HYDROXYCHLOROQUINE 200 MG TAB* Take 1 tablet by mouth twice * TRIAMCINOLONE ACETONIDE 0.5 %* Apply to affected area. APPL* CHOLECALCIFEROL (VITAMIN D3) * Take 1 tablet by mouth once d* VITAMIN B COMPLEX TABLET Take 1 tablet by mouth once d* OMEPRAZOLE 20 MG CAPSULE,FALGUNI* Take 1 capsule by mouth once * Patient not taking: Reported on 10/28/2017 POLYETHYLENE GLYCOL 3350 17 G* 17gm in 8oz daily until stool* Patient not taking: Reported on 10/28/2017 Problem List As Of Date 10/28/2017 Noted Resolved Myalgia and myositis, unspecified [IQU5226] INVALID FOR*05/28/2016 GASTRITIS ANTRAL( W/O Hemorrhage) [K29.60] INVALID FOR*12/27/2014 Acute gastritis without mention of hemorrhage [*INVALID FOR*12/27/2014 More... Pneumonia, organism unspecified [J18.9] INVALID FOR*12/27/2014 Vitamin D deficiency [E55.9] INVALID FOR* Left axillary pain [M79.622] INVALID FOR*05/28/2016 Adenopathy [R59.1] INVALID FOR*05/28/2016 Kidney stone [N20.0] INVALID FOR*05/28/2016 Dysphagia [R13.10] 05/28/2016 Overweight (BMI 25.0-29.9) [E66.3] INVALID FOR*05/28/2016 Esophageal reflux [K21.9] INVALID FOR*03/15/2015 Chronic bilateral low back pain with sciatica [*INVALID FOR* Chronic conjunctivitis of both eyes [H10.403] INVALID FOR*05/28/2016 Left carpal tunnel syndrome [G56.02] INVALID FOR* GERD (gastroesophageal reflux disease) [K21.9] INVALID FOR* Postoperative hypothyroidism [E89.0] INVALID FOR* Right carpal tunnel syndrome [G56.01] INVALID FOR* Thyroid cancer (HCC) [C73] INVALID FOR* More... Sjogren's syndrome (HCC) [M35.00] More... RA (rheumatoid arthritis) (HCC) [M06.9] More... 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 Primary fibromyalgia syndrome [M79.7] Neck pain [M54.2] Insomnia [G47.00] Prescriptions ordered this encounter Disp Refills Start End GABAPENTIN 300 MG CAPSULE 90 c* 2 10/28/2017 01/26/2018 Route: ORAL Sig: Take 3 capsules by mouth once daily for 90 days. Medications Discontinued During This Encounter methotrexate sodium 25 mg/mL soln 12/18/2015 10/28/2017 Class: Historical Med Sig: Disc: Reason for discontinue is not on file. gabapentin (NEURONTIN) 300 mg capsule 90 c* 1 09/25/2017 10/28/2017 Route: ORAL Sig: Take 1 capsule by mouth once daily for 90 days. Disc: Reason for discontinue is not on file. Disposition: Return in about 4 months (around 02/25/2018). Follow-up and Disposition History Recorded Encounter Status:Closed by NATALYA PERKINS, JANUARY on 10/28/17 CBC AND DIFFERENTIAL Collected: 10/26/2017 Status: F Source: GREER 12:33 PM [facility] REPOSITORY TYPE CODE TESTS RESULT OUT OF REFERENCE UNITS RANGE LAB WBC 3.70-11.00 k/uL WBC 4.30 LAB RBC 3.90-5.20 m/uL RBC 4.52 LAB HGB 11.5-15.5 g/dL Hemoglobin 12.3 LAB HCT 36.0-46.0 % Hematocrit 38.4 LAB MCV 80.0-100.0 fL MCV 85.0 LAB MCH 26.0-34.0 pG MCH 27.2 LAB MCHC 30.5-36.0 g/dL MCHC 32.0 LAB RDWCV 11.5-15.0 % RDW-CV 13.2 LAB PLTCT 150-400 k/uL Platelet Count 220 LAB MPV 9.0-12.7 fL MPV 10.3 LAB ANEUT % Neut% 48.6 LAB AANEUT 1.45-7.50 k/uL Abs Neut 2.08 LAB ALYMP % Lymph% 35.3 LAB AALYMP 1.00-4.00 k/uL Abs Lymph 1.52 LAB AMONO % [place]% 10.5 LAB AAMONO <0.87 k/uL Abs [place] 0.45 LAB AEOS % Eosin% 4.9 LAB AAEOS <0.46 k/uL Abs Eosin 0.21 LAB ABASO % Baso% 0.7 LAB AABASO <0.11 k/uL Abs Baso 0.03 LAB AUNRBC 0 /100 WBC NRBCs 0.0 LAB ABNRBC <0.01 k/uL Absolute nRBC <0.01 LAB DTYP DTYPE Auto Diff Performed By: #### CBCDIF, CMP, CRP, TSH #### [facility] [address] [place] [id number] COMP METABOLIC PANEL Collected: 10/26/2017 Status: F Source: GREER 12:33 PM [facility] REPOSITORY TYPE CODE TESTS RESULT OUT OF REFERENCE UNITS RANGE LAB TP 6.3-8.0 g/dL Protein, Total 7.0 LAB ALB 3.9-4.9 g/dL Albumin 4.0 LAB CA 8.5-10.2 mg/dL Calcium, Total 9.2 LAB TBIL 0.2-1.3 mg/dL Bilirubin, Total 0.3 LAB ALKP 32-117 U/L Alkaline Phosphatase 55 LAB AST 13-35 U/L AST 25 LAB GLU 74-99 mg/dL Glucose 80 Result Comment: The [place] [employer] (ADA) provides guidance for cutoff values for fasting glucose and random glucose. The ADA defines fasting as no caloric intake for at least 8 hours. Fas ting plasma glucose results between 100 to 125 mg/dL indicate increased risk for diabetes (prediabetes). Fasting plasma glucose results greater than or equal to 126 mg/dL meet the criteria for diagnosis of diabetes. In the absence of unequivocal hyperglycemia, results should be confirmed by repeat testing. In a patient with classic symptoms of hyperglycemia or hyperglycemic crisis, random plasma glucose results greater than or equal to 200 mg/dL meet the criteria for diagnosis of diabetes. Reference: Standards of Medical Care in Diabetes 2016, [place] [employer] Association. Diabetes Care. 2016.39(Suppl 1). LAB BUN 7-21 mg/dL BUN 16 LAB CRET 0.58-0.96 mg/dL Creatinine High 0.97 LAB NA 136-144 mmol/L Sodium 144 LAB K 3.7-5.1 mmol/L Potassium 3.9 LAB CL 97-105 mmol/L Chloride High 107 LAB CO2 22-30 mmol/L CO2 23 LAB AGAP 9-18 mmol/L Anion Gap 14 LAB ALT 7-38 U/L ALT 17 LAB GFRAA eGFR- Amer. >60 LAB GFRNAA . eGFR-All Other Races 59 Result Comment: eGFR (Estimated GFR) Units of measure: mL/min/1.73 meters squared eGFR is derived from the reexpressed MDRD Study equation using the following parameters: serum creatinine, age, gender and race. The creatinine assay has been calibrated to be traceable to IDMS. An eGFR <60 mL/min/1.73m2 for >3 months is consistent with chronic kidney disease. Refer to KDOQI guidelines for clinical interpretation. In patients with unstable renal function, e.g. those with acute kidney injury, the eGFR may not accurately reflect actual GFR. Performed By: #### CBCDIF, CMP, CRP, TSH #### [facility] [address] [place] [id number] C-REACTIVE PROTEIN Collected: 10/26/2017 Status: F Source: GREER 12:33 PM [facility] REPOSITORY TYPE CODE TESTS RESULT OUT OF REFERENCE UNITS RANGE LAB CRP <0.9 mg/dL C-Reactive 0.1 Protein Performed By: #### CBCDIF, CMP, CRP, TSH #### [facility] [address] [place], [place] [address] TSH Collected: 10/26/2017 Status: F Source: GREER 12:33 PM [facility] REPOSITORY TYPE CODE TESTS RESULT OUT OF RANGE REFERENCE UNITS LAB TSH 0.400-5.500 uU/mL Low TSH 0.055 Performed By: #### CBCDIF, CMP, CRP, TSH #### [facility] [address] [place], [place] [address] PROGRESS Observed: 10/14/2017 Status: COMPLETED Source: GREER 3:37 PM [facility] REPOSITORY HNO ID: [id number] Author: Farruhk Lujan Service: (none) Author Type: Physician Type: Progress Notes Filed: 10/14/2017 3:39 PM Note Text: JOHNNY Vega is a 57 year old female who presents with septal ulcer. Patient complains of chronic crusting and bleeding from the nose. Patient was seen by 2 ENTs and given creams. Patient uses Vaseline as well as water in her nose. Patient is constantly blowing across on her nose because it blocks up her nose. ROS General Weight loss: No Fatigue: No Night sweats:No Cardiac Chest pain:No Fast heart rate:No Swelling in the feet:No Respiratory Short of breath:No Cough:No Wheezing:No Gastrointestinal Nausea:No Vomiting:No Indigestion:No Past no history family history social history reviewed Physical Exam PHYSICAL EXAM: There were no vitals taken for this visit. General: Patient is awake, alert, NAD. Voice is normal. Skin: normal Eyes: Extraocular motion and Gaze is normal. Ears: Right external auditory canal is normal. TMJ: normal. Right tympanic membranes normal. Left external auditory canal is normal. Left tympanic membrane normal. Nose: Septum is normal. Large septal ulcer right slight excoriation left Turbinates are normal. Nasopharynx:normal Oral Cavity/Oropharynx: Lips normal Dentition normal Tongue normal. Tonsils normal. Palate and uvula normal. Pharynx posterior normal Hypopharynx: Base of tongue normal Pyriform sinus normal. Larynx: Vocal cords normal. Epiglottis normal. Post cricoid normal. Salivary glands: Parotid normal. Submandibular and sublingual normal. Thyroid: normal. Lymphatic/Neck: Lymph nodes normal. Neurologic: Facial nerve normal. ASSESSMENT/PLAN: 1. Nosebleed - ICD9: 784.7, ICD10: R04.0 (primary diagnosis) 2. Nasal septal ulcer - ICD9: 478.19, ICD10: J34.0 Avoid blowing across out of her nose Vaseline twice a day vaporizer saline Farrukh Lujan MD ALLERGIES ALLERGIES DATE TYPE / NAME / CODE REACTION SEVERITY SOURCE CODE 11/20/2015 DRUG ADALIMUMAB HIVES [address] Other [id number]([facility] [place]) Repository 10/05/2013 Drug aminocaproic Rash Unknown [place] Allergy/41 acid/[id number](RX [facility] [id number]([facility]) Repository 10/05/2013 Drug methotrexate/F0060 Other Unknown [place] Allergy/41 44330(RXNORM) Community [id number]([facility] [place]) Repository 04/12/2013 DRUG METHOTREXATE CONTRAINDICA [address] Other [id number]([facility]) Repository 06/20/2005 DRUG AMINOCAPROIC ACID RASH Med [address] Other [id number]([facility]) Repository NG/[id number] AMINOCAPROIC ACID [facility] 06([facility] Repository NG/[id number] ADALIMUMAB [facility] 06([facility]) Repository NG/[id number] METHOTREXATE [facility] 06([facility] Repository ENCOUNTERS ENCOUNTERS ADMIT/DISCHARGE ACCOUNT NUMBER ADMITTING ENCOUNTER LOCATION SOURCE CLASS 09/28/2018 [id number] Ambulatory [facility] ding:MTLAB Repository 07/19/2018/07/19/20 [id number] Ambulatory [address] Repository 07/19/2018/07/21/20 [id number] Ambulatory [address] Repository 05/26/2018/05/26/20 [id number] Ambulatory [address] Repository 05/14/2018/09/10 [id number] Ambulatory [address] [place] Repository 05/03/2018/05/03/20 [id number] Ambulatory [address] [place] Repository 04/22/2018/04/22/20 [id number] Ambulatory [address] [place] Repository 04/06/2018/04/06/20 [id number] Ambulatory [address] [place] Repository 04/06/2018/04/07/20 [id number] Ambulatory [address] [place] Repository 03/11/2018 [id number] Ambulatory [facility] Repository CENTERBuildi ng:[place] 03/04/2018/03/04/20 [id number] Ambulatory [address] [place] Repository 03/04/2018/03/08/20 [id number] Ambulatory [address] [place] Repository 01/26/2018/01/28/20 [id number] Ambulatory [address] [place] Repository 01/18/2018/01/21/20 [id number] Ambulatory [address] [place] Repository 01/18/2018 [id number] Ambulatory [facility] [place] Repository 01/02/2018/01/06/20 [id number] Ambulatory [address] [place] Repository 10/30/2017/10/30/19 [id number] Ambulatory [address] [place] Repository 10/28/2017/10/28/19 [id number] Ambulatory [address] Other [place] Repository 10/28/2017/10/28/19 [id number] Ambulatory [address] Repository CENTERBuildi ng:[place] 10/26/2017 [id number] Ambulatory [facility] [place] Repository 10/14/2017/10/15/19 [id number] Ambulatory [address] [place] Repository PAYERS PAYERS ENCOUNTER GUARANTOR PAYER SUBSCRIBER SOURCE 09/28/2018 ASHOK Carlos [id number] Insurance:MUTUAL MYYULISAANTKylerDOB: [id number] EHPPolicy Number: [place], [place] [address]Gws: [id number] Date:[id number] BOX () [id number], [place] [address]NM: 09/28/2018 Secondary NOT GIVENUNK [place] Insurance:SELF PAY [facility]: Effective Repository Date:2018-09-28 03/11/2018 AMY Primary Insurance:S ASHOK A [facility] MYKRANTZ VDOB: [facility] [place] NON MYKRANTZDOB: [facility] W STAFFPolicy Number: [id number] [facility]ository [id number] [place], [place] Date: [id number]: () 03/11/2018 Secondary AMY [facility] Insurance:MEDICARE A MYKRANTZ VDOB: [facility] AND BPolicy Number: [id number] Repository [id number] Date: 10/28/2017 AMY Primary Insurance:[facility] ASHOK A [facility] MYKRANTZ VDOB: [facility] [place] NON MYKRANTZDOB: [facility] W STAFFPolicy Number: [id number] Repository [id number] [place], [place] Date: [id number]: ()
== END ==
PROVIDERS: Family Provider Internal Medicine; PCP Internal Medicine; Referring Provider Internal Medicine Rheumatology; Visit Provider Internal Medicine Rheumatology
DX: M05.79 Rheumatoid arthritis with rheumatoid factor of multiple sites without organ or systems involvement (principal); M79.7 Fibromyalgia; N20.0 Calculus of kidney; E89.0 Postprocedural hypothyroidism; Z85.850 Personal history of malignant neoplasm of thyroid
CPT/HCPCS: 36415; 71046; 73130; 80053; 85025; 86038; 86200; 86480; 86706; 86803; 87340

== ENCOUNTER → 2018-10-15 15:10 | Outpatient (CLI) | payer OTHER, SELFPAY ==
[2014-05-23 19:35] VITALS: BMI 24.3
[2018-10-15 17:21] LABS: Color, Urine Yellow (Yellow); Glucose, Dipstick Normal (Normal); Ketone-Dipstick Negative (Negative); Leukocyte Esterase-Dipstick 25 /ul (Negative); Nitrite-Dipstick Negative (Negative); Occult Blood-Urine 10 /ul (Negative); Protein-Dipstick Negative (Negative); Specific Gravity, Urine 1.015 (1.002-1.030); Urine Bilirubin Dipstick Negative (Negative); Urine Clarity Clear (Clear); Urine Urobilinogen Normal (Normal)
[2018-10-15 18:13] LABS: Protein, Urine (Random) < 6.0 mg/dL (<11.9)
[2018-10-17 14:14] LABS: Complement C3 100 mg/dL (82-167)
[2018-10-18 14:06] LABS: Anti-Jo <0.2 AI (0.0-0.9); Anti-Scleroderma-70 AB <0.2 AI (0.0-0.9); RNP Ab 1.4 AI (0.0-0.9); SJOGREN'S Anti-SS-A test < 0.2 AI (0.0-0.9); SJOGREN'S Anti-SS-B test < 0.2 AI (0.0-0.9); Smith Ab <0.2 AI (0.0-0.9)
[2018-10-18 14:19] LABS: Anti-Centromere B Ab <0.2 AI (0.0-0.9); Anti-dsDNA Ab 1 IU/mL (0-9)
== END ==
PROVIDERS: Family Provider Internal Medicine; PCP Internal Medicine; Referring Provider Internal Medicine Rheumatology; Visit Provider Internal Medicine Rheumatology
DX: M05.79 Rheumatoid arthritis with rheumatoid factor of multiple sites without organ or systems involvement (principal); M79.7 Fibromyalgia
CPT/HCPCS: 36415; 81002; 82570; 84156; 86160; 86225; 86235; 86431

== ENCOUNTER 2019-06-13 01:21 | Emergency (ER) | payer OTHER, SELFPAY ==
[2019-06-13 01:22] VITALS: BP 151/90; PULSE 90; RESP 15; TEMP 36.5; O2SAT 98; BMI 29.1
[2019-06-13] MEDS: 0.9% Normal Saline 1,000 ML 1000 ML IV (03:11)
[2019-06-13] MEDS: Ondansetron 4 MG/2 ML Vial IV (03:11)
[2019-06-13] MEDS: Morphine 4 MG/ML Syringe IV (03:13)
[2019-06-13] MEDS: MethylPREDNISolone 125 MG/2 ML Vial 60 MG IV (03:13)
[2019-06-13 03:27] LABS: Absolute Lymphocyte Count 1.52 X10^3/uL (0.83-4.51); Absolute Neutrophil Count 4.7 X10^3/uL (2.0-7.7); Basophil# 0.04 X10^3/uL; Basophil% 0.6 % (0-1); Eosinophil# 0.18 X10^3/uL; Eosinophils% 2.6 % (0-5); Hematocrit 40.8 % (37-47); Hemoglobin 13.5 g/dL (12.0-15.0); Lymphocyte # 1.52 X10^3/ul (4.0); Mean Corp Hgb Conc 33.1 g/dL (32-36); Mean Corpuscular Hgb 28.9 pg (27.0-32.0); Mean Corpuscular Volume 87.4 fL (81-99); Monocyte# 0.49 X10^3/uL; Monocyte% 7.1 % (0-10); NRBC Flagged by Analyzer 0 % (0-5); Neutrophil # 4.65 X10^3/uL (2.7-7.7); Neutrophil % 67.4 % (47-70); Platelet Count 250 K/mm3 (150-450); RBC Distribution Width CV 12.6 % (11.6-14.6); RBC Distribution Width SD 40.3 fl (35.1-43.9); Red Blood Count 4.67 M/mm3 (4.2-5.4); White Blood Count 6.9 K/mm3 (4.4-11.0)
--- NOTE | 2019-06-13 03:27 | ED.DCSUM_ITS ---
- ER Visit Summary Date of Service: 06/13/19 Chief Complaint: Joint pain History of Present Illness: The patient is a 58 F who presents with pain in her hands, wrists, chest, neck, and head that is been getting progressively worse over the past 3 days. Patient states she has a history of arthritis, fibromy algia, and lupus. Patient describes her pain is throbbing, burning, and aching. Patient states the pain is worse when she lays flat. Patient states nothing is been helping with her pain. Patient denies any fevers or chills. She admits to nausea but denies any vomiting. Patient denies any shortness of breath. Physical Examination: Vital signs are stable. Patient is afebrile. Patient is in no acute distress. Oral mucosa is pink and moist. Neck is supple. Trachea is midline. There is no JVD noted. Heart was regular rate and rhythm. Lungs are clear and equal bilaterally. Abdomen is soft and nontender. Cranial nerves II through XII are intact. There are no focal motor or sensory deficits noted. Musculoskeletal exam reveals tenderness over the MP joints of the hands bilaterally, bilateral wrists, sternum, and cervical spine. There is no bony crepitance or step-off. There is some edema noted. There is no ecchymosis or deformity noted. Range of motion was limited all motions of the hands and wrists bilaterally secondary to pain. Test Results: CBC and basic metabolic profile were obtained were within normal limits. Emergency Department Course and Treatment: Patient was given IV fluids, morphine, Zofran, and Solu-Medrol here. Patient was sleeping on reevaluation. Patient was given a prescription for prednisone. Patient was instructed to follow-up with her primary care physician in 5 to 7 days. Patient understood and was agreeable with the plan. All questions were answered. Disposition: Discharge home Impression: Lupus arthritis This note was generated with ClearMyMail dictation software. It may contain incorrect words, spelling, and punctuation that were not noted in review of the chart prior to signing ED Disposition - Plan for ED Patient: Disposition: Home or Assisted Living Diagnosis: Lupus arthritis Instructions: Lupus, Rheumatoid Arthritis Prescriptions: predniSONE tablet 60 mg PO DAILY #15 tab Prescription Printed Referrals: Franck Murphy MD [Primary Care Provider] - 3-5 Days
[2019-06-13 03:42] LABS: Anion Gap 10 (5-15); BUN 19 mg/dL (7-18); BUN/Creat Ratio 18.6 RATIO (10-20); Calcium,Total 8.9 mg/dL (8.5-10.1); Chloride 105 mmol/L (98-107); Creatinine, Serum 1.02 mg/dL (0.55-1.02); EST Glomerular Filtration Rate 59 mL/min (>60); Est Glom Filt Rate - Afr Amer 71 mL/min (>60); Estimated Creatinine Clearance 58.46 ml/min; Glucose 97 mg/dL (74-106); Sodium Level 142 mmol/L (136-145)
[2019-06-13 03:43] LABS: Potassium 3.4 mmol/L (3.5-5.1)
[2019-06-13 04:45] VITALS: BP 120/82; PULSE 85; RESP 18; O2SAT 99
== END 2019-06-13 04:46 | disposition home or self-care (01) ==
PROVIDERS: Emergency Provider Emergency Medicine; Family Provider Internal Medicine; PCP Internal Medicine
DX: M32.9 Systemic lupus erythematosus, unspecified (principal); M13.89 Other specified arthritis, multiple sites; M79.7 Fibromyalgia; R11.0 Nausea; Z79.52 Long term (current) use of systemic steroids; Z79.899 Other long term (current) drug therapy; Z85.850 Personal history of malignant neoplasm of thyroid
CPT/HCPCS: 80048; 85025; 96361; 96374; 96375; 99283; J7030; J2405

== ENCOUNTER 2021-08-08 04:28 | Emergency (ER) | payer OTHER, SELFPAY ==
[2021-08-08 04:29] VITALS: BP 142/89; PULSE 69; RESP 16; TEMP 36.4; O2SAT 100; BMI 25.4
--- NOTE | 2021-08-08 04:42 | EDS_ITS ---
HPI History of Present Illness Chief Complaint: General Illness Informant: patient Onset/Context/Timing Onset: Hours (3) Context: - (Woke up with symptoms) Timing: Continuous Quality: Ache, stiffness Location: Multiple joints, mostly right upper and right lower extremities, & back Current Severity: Severe Maximum Severity: Severe Worsened by: movement Relieved by: remaining still Associated Symptoms Associated Symptoms: none Narrative Narrative: Patient has history of rheumatoid arthritis, she has had issues controlling it. She was on Enbrel for years, states that she was having flares and switched to something else that worked even worse, so she was recently switched back to Enbrel injections. She also was on a prednisone taper for 21 days, she just finished it 1 or 2 days ago, and woke up in the middle of the night tonight feeling like her rheumatoid arthritis flare is back. She states mostly it is joints on the right side but also her entire back/spine, without any neurologic symptoms or fevers/chills or injuries that she knows of. She states she is being referred to pain management, her doctor does not like treat her with prescription analgesics, and she presents here at 4:30 AM for treatment. [facility] Medical History (Updated 08/08/21 @ 04:[address] Russ Dillon MD) GERD (gastroesophageal reflux disease) Hypothyroidism Rheumatoid arthritis Home Medications Chlordiazepoxide/Clidinium Br [Chlordiazepoxide-Clidinium Cap] 1 capsule PO BID 10/05/13 [History Last Taken Unknown] cyclobenzaprine 10 mg PO TID 10/05/13 [History Last Taken Unknown] dexlansoprazole [Dexilant] 60 mg PO DAILY 10/05/13 [History Last Taken Unknown] estradiol 0.1 mg TOPICAL QWEEK 10/05/13 [History Last Taken Unknown] hydrocodone-acetaminophen 1 - 2 tab PO Q4H PRN PRN #12 tablet 10/05/13 [Rx Last Taken Unknown] hydroxychloroquine 200 mg PO BIDCM 10/05/13 [History Last Taken Unknown] levothyroxine 150 mcg PO DAILY 10/05/13 [History Last Taken Unknown] etanercept [Enbrel SureClick] mg SUBCUT 08/08/21 [History Last Taken Unknown] Allergy/AdvReac Type Severity Reaction Status Date / Time aminocaproic acid Allergy Rash Verified 08/08/21 04:37 [From Amicar] methotrexate AdvReac Other Verified 08/08/21 04:37 Social History Smoking Status: Never smoker ROS ROS ED Constitutional Constitutional ED: Denies chills or fever(s) Eyes Eyes: Denies change in vision or diplopia ENT ENT ED: Denies rhinorrhea or sore throat Cardiovascular Cardiovascular: Denies chest pain or palpitations Respiratory/Chest Respiratory/Chest: Denies cough or dyspnea Gastrointestinal Gastrointestinal: Denies abdominal pain, diarrhea, nausea or vomiting Genitourinary Genitourinary ED: Denies dysuria or hematuria Musculoskeletal Musculoskeletal: Denies back pain or neck pain Integumentary Denies abscess or rash Neurologic Neurologic: Denies headache(s), paresthesias or weakness Psychiatric Psychiatric: Denies anxiety or suicidal thoughts EXAM Physical Exam Const Vital Signs: 08/08/21 04:29 Temperature 97.5 F L Temperature Source Temporal Pulse Rate 69 Respiratory Rate 16 Blood Pressure 142/89 H Blood Pressure Mean 106 Pulse Ox 100 Oxygen Delivery Method Room Air Positive well nourished and well developed General Appearance ED: well developed and NAD HEENT Reports moist mucous membranes normocephalic and atraumatic Eyes PERRL and EOMs intact bilaterally Neck full ROM and supple Resp normal respiratory effort and clear to auscultation bilaterally Cardio regular rate, regular rhythm and no murmurs GI non-tender and non-distended Auscultation: normoactive bowel sounds Palpation: soft Back/Spine no CVA tenderness, normal ROM and normal to inspection General Back: other FROM Extremity normal to inspection Extremity Narrative: Patient is able to move all 4 extremities, she is limited with regards to opening her right hand, bending the right knee, and both ankles due to pain. She has some mild tenderness at both ankles, neither of which is erythematous or swollen. Same with the knees, with more tenderness on the right. Good range of both hips without difficulty. Able to walk. Mildly swol carlin MCPJ both hands worse on the right. No erythema or hot, swollen joints. General Extremety ED: Yes tenderness; Negative for edema or pulses abnormal General Extremity: Negative for edema or pulses abnormal Neuro oriented x3, CN's II-XII intact bilaterally and no sensory deficits noted Sensorium / Orientation: awake and alert Motor Exam: strength 5/5 throughout Skin no rashes or lesions noted and no wounds MDM MDM MDM Narrative Medical decision making narrative: Consistent with a flare of her rheumatoid arthritis. Given that she sees a underwriting account representative that is not local, and has a PCP at [facility] managing her other illnesses, I think she should follow-up with her underwriting account representative for further care regarding her rheumatoid arthritis. I am not going to start her on more steroids since she just finished them. I will provide pain relief here with Toradol and morphine and advised follow-up she is comfortable with that plan. Discharge Plan Triage Chief Complaint: General Illness ED Provider: Russ Dillon Dx/Rx/DC Orders Clinical Impression: Rheumatoid arthritis flare Instructions: ED Rheumatoid Arthritis Prescriptions: No Action cyclobenzaprine 10 MG tablet 10 mg PO TID RF: 0 levothyroxine 150 MCG tablet 150 mcg PO DAILY RF: 0 hydroxychloroquine 200 MG tablet 200 mg PO BIDCM RF: 0 dexlansoprazole [Dexilant] 60 MG Rhett.Mp 60 mg PO DAILY RF: 0 Chlordiazepoxide/Clidinium Br [Chlordiazepoxide-Clidinium Cap] 1 EACH capsule 1 capsule PO BID RF: 0 estradiol 0.1 MG patch 0.1 mg topical QWEEK RF: 0 hydrocodone-acetaminophen 1 TABLET tablet 1 - 2 tab PO Q4H PRN PRN (Reason: Pain) Qty: 12 RF: 0 Enbrel SureClick 50 mg/mL (1 mL) pen injector SUBCUT RF: 0 Primary Care Provider: Franck Murphy Referrals: Metal Handler, your [Other] - As soon as possible Franck Murphy MD [Primary Care Provider] - Disposition Disposition: Home, Self Care
[2021-08-08] MEDS: Ondansetron ODT 4 MG Tablet 8 MG PO (04:51)
[2021-08-08] MEDS: Morphine 4 MG/ML Syringe IM (04:52)
[2021-08-08] MEDS: Ketorolac 30 MG/ML Syringe IM (04:53)
== END 2021-08-08 04:57 | disposition home or self-care (01) ==
LOC: ED 04:54
PROVIDERS: Emergency Provider Emergency Medicine; PCP Family Medicine
DX: M06.9 Rheumatoid arthritis, unspecified (principal)
CPT/HCPCS: 96372; 99282; A4216

== ENCOUNTER 2022-08-09 17:47 | Emergency (ER) | payer OTHER, SELFPAY ==
[2022-08-09 17:48] VITALS: PULSE 89; RESP 18; TEMP 36; O2SAT 100; BMI 28.1
[2022-08-09 17:57] VITALS: BP 128/88; PULSE 89; RESP 18; TEMP 36; O2SAT 100
--- NOTE | 2022-08-09 17:58 | EKG12_ITS ---
Test Reason : GENERAL ILLNESS Blood Pressure : / mmHG Vent. Rate : 081 BPM Atrial Rate : 081 BPM P-R Int : 116 ms QRS Dur : 084 ms QT Int : 402 ms P-R-T Axes : -04 051 067 degrees QTc Int : 466 ms Normal sinus rhythm Increased R/S ratio in V1, consider early transition or posterior infarct Abnormal ECG Confirmed by SUZE PERKINS, CHIQUI ([id number]), clinical editor SHELIA PARRY ([id number]) on 08/12/2022 12:34:53 PM Referred By: Confirmed By:CHIQUI ARCINIEGA MD
--- NOTE | 2022-08-09 18:00 | EX.ED.DYSGE1 ---
HPI History of Present Illness Chief Complaint: General Illness Informant: patient Onset/Context/Timing Onset: Yesterday Context: Gradual Onset Timing: Waxes and wanes Current Severity: Moderate Maximum Severity: Severe Narrative Narrative: Patient presents secondary to generalized body aches with shortness of breath and nausea/vomiting. She got her first injection of Reclast yesterday. Around 2 to 3 hours after the injection she started belting generalized body aches with some nausea and vomiting. She states she just cannot get comfortable. She does feel short of breath. [facility] Medical History (Updated 08/09/22 @ 20:[address] Florence Livingston MD) GERD (gastroesophageal reflux disease) Hypothyroidism Medication reaction Myalgia Rheumatoid arthritis Home Medications Chlordiazepoxide/Clidinium Br [Chlordiazepoxide-Clidinium Cap] 1 capsule PO BID 10/05/13 [History Last Taken Unknown] cyclobenzaprine 10 mg tablet 10 mg PO TID 10/05/13 [History Last Taken Unknown] dexlansoprazole 60 mg capsule,biphase delayed release (Dexilant) 60 mg PO DAILY 10/05/13 [History Last Taken Unknown] estradiol 0.1 mg/24 hr semiweekly transdermal patch 0.1 mg topical QWEEK 10/05/13 [History Last Taken Unknown] hydrocodone-acetaminophen 5-325mg 5mg-325mg 1 - 2 tab PO Q4H PRN PRN Pain ##12 10/05/13 [Rx Last Taken Unknown] hydroxychloroquine 200 mg tablet 200 mg PO BIDCM 10/05/13 [History Last Taken Unknown] levothyroxine 150 mcg tablet 150 mcg PO DAILY 10/05/13 [History Last Taken Unknown] etanercept 50 mg/mL (1 mL) subcutaneous pen injector (Enbrel SureClick) mg subcut 08/08/21 [History Last Taken Unknown] hydrocodone-acetaminophen 5-325mg 5mg-325mg 1 tab PO Q6H PRN pain 3 days #10 tabs 08/09/22 [Rx Last Taken Unknown] ondansetron 4 mg disintegrating tablet 4 mg PO Q8H PRN nausea and vomiting #10 tabs 08/09/22 [Rx Last Taken Unknown] promethazine 25 mg tablet 25 mg PO TID PRN nausea and vomiting #10 tabs 08/09/22 [Rx Last Taken Unknown] Allergy/AdvReac Type Severity Reaction Status Date / Time aminocaproic acid Allergy Rash Verified 08/08/21 04:37 [From Amicar] methotrexate AdvReac Other Verified 08/08/21 04:37 Social History Smoking Status: Never smoker ROS ROS ED Constitutional Constitutional ED: Reports other Details: [place] warm ; Denies chills Eyes Eyes: Denies change in vision or discharge from eye(s) ENT ENT ED: Denies discharge from eye(s), rhinorrhea or sore throat Cardiovascular Cardiovascular: Denies chest pain or palpitations Respiratory/Chest Respiratory/Chest: Reports dyspnea; Denies cough Gastrointestinal Gastrointestinal: Reports abdominal pain, nausea and vomiting; Denies diarrhea Genitourinary Genitourinary ED: Denies dysuria Musculoskeletal Musculoskeletal: Reports back pain and myalgias; Denies extremity pain Integumentary Denies Abrasions or rash Neurologic Neurologic: Denies headache(s) or weakness Psychiatric Psychiatric: Denies anxiety or depression Allergic/Immunologic Allergic/Immunologic ED: Denies lip swelling or urticaria EXAM Physical Exam Const Vital Signs: 08/09/22 17:48 08/09/22 17:56 08/09/22 17:57 Temperature 96.8 F L 96.8 F L Temperature Source Temporal Temporal Pulse Rate 89 89 Respiratory Rate 18 18 Respiratory Effort Normal Non-Labored Respiratory Pattern Normal Blood Pressure 128/88 H Blood Pressure Mean 101 Pulse Ox 100 100 Oxygen Delivery Method Room Air Room Air 08/09/22 18:50 Temperature 97.8 F Temperature Source Temporal Pulse Rate 74 Respiratory Rate 16 Respiratory Effort Respiratory Pattern Blood Pressure 128/88 H Blood Pressure Mean 101 Pulse Ox 98 Oxygen Delivery Method Room Air Positive well nourished and well developed General Appearance ED: well developed HEENT Reports normocephalic and head/scalp atraumatic Eyes PERRL and EOMs intact bilaterally Neck supple Chest Wall inspection of chest normal and palpation of chest normal Resp normal respiratory effort and clear to auscultation bilaterally Cardio regular rate and regular rhythm GI non-tender Auscultation: normoactive bowel sounds Palpation: soft Extremity normal to inspection Neuro oriented x3 and no sensory deficits noted Sensorium / Orientation: alert Motor Exam: strength 5/5 throughout Psych Mood & Affect: anxious Skin no rashes or lesions noted MDM MDM MDM Narrative Medical decision making narrative: Patient was given morphine, Toradol, Zofran, IV fluids. Lab work obtained along with EKG and chest x-ray. Lab Data Attestation: I reviewed the patient's lab results. Labs: Laboratory Results - last 24 hr 08/09/22 08/09/22 18:08 18:08 WBC 7.9 RBC 5.58 H Hgb 15.9 H Hct 47.5 H MCV 85.1 MCH 28.5 MCHC 33.5 RDW Std Deviation 47.1 H RDW Coeff of Natalia 15.1 H Plt Count 281 MPV 8.8 Immature Gran % (Auto) 0.500 Neut % (Auto) 89.5 H Lymph % (Auto) 6.1 L Sampson % (Auto) 2.4 Eos % (Auto) 1.0 Baso % (Auto) 0.5 Absolute Neuts (auto) 7.0 Absolute Lymphs (auto) 0.48 L Nucleated RBC % 0 Differential Comment SEE COMMENT Platelet Estimate ADEQUATE RBC Morphology N CHROM Sodium 139 Potassium 3.7 Chloride 105 Carbon Dioxide 27.0 Anion Gap 7 BUN 14 Creatinine 0.88 Estim Creat Clear Calc 64.46 Est GFR (MDRD) Af Amer 84 Est GFR (MDRD) Non-Af 69 BUN/Creatinine Ratio 15.9 Glucose 103 Calcium 8.8 Radiography Chest X-Ray - ED: 1 View, Read by ED Physician, Normal, Heart, Lungs and Mediastinum Diagnostic Testing: Clinical Impression(s) from Imaging Studies Chest X-Ray 08/09/22 18:19 IMPRESSION: No radiographic evidence of acute cardiopulmonary disease. Electronically Signed: Dorothy Canales MD at 18:52 EST Reading Location ID and State: [id number] / Tel , Service support , EKG Initial EKG: Attestation: I personally reviewed and interpreted this EKG as follows: Interpretation: Sinus Rhythm (Sinus at 81 with no acute ischemia.) Treatment and Re-Evaluation Narrative: CBC and chemistry studies significant only for hemoconcentration with a hemoglobin of 15.9. EKG reveals no acute ischemia. Chest x-ray per my interpretation reveals no focal infiltrate. Radiology interpretation is reviewed and agrees. On repeat evaluation patient states her pain is starting to come back. She is given a small dose of Dilaudid. Right upper back to check the patient she states that her pain is significantly improved. We discussed medication for home and I will send this to the hospital pharmacy so she can take meds home with her tonight. As I was leaving the room she started to have some dry heaves again and was given a dose of IM Phenergan. Test results Hello been discussed with the patient and at bedside. I do believe her symptoms are secondary to her infusion she had yesterday. I did do a COVID and influenza test here which were both negative. Medication instructions have been given for her at home. She be discharged home with family at this time. Discharge Plan Triage Chief Complaint: General Illness ED Provider: Florence Livingston Dx/Rx/DC Orders Clinical Impression: Medication adverse effect, Vomiting, Myalgia Instructions: ED Drug Reaction, Other, ED Myalgias, ED Vomiting (Adult) Prescriptions: New hydrocodone-acetaminophen 5-325 mg tablet 1 tab PO Q6H PRN (Reason: pain) 3 Days Qty: 10 0RF ondansetron 4 mg tablet,disintegrating 4 mg PO Q8H PRN (Reason: nausea and vomiting) Qty: 10 0RF promethazine 25 mg tablet 25 mg PO TID PRN (Reason: nausea and vomiting) Qty: 10 0RF No Action cyclobenzaprine 10 MG tablet 10 mg PO TID levothyroxine 150 MCG tablet 150 mcg PO DAILY hydroxychloroquine 200 MG tablet 200 mg PO BIDCM dexlansoprazole [Dexilant] 60 MG capsule,biphase delayed releas 60 mg PO DAILY Chlordiazepoxide/Clidinium Br [Chlordiazepoxide-Clidinium Cap] 1 EACH capsule 1 capsule PO BID estradiol 0.1 MG patch 0.1 mg topical QWEEK Label Comments: CHANGES PATCH 2 TIMES WEEKLY hydrocodone-acetaminophen 1 TABLET tablet 1 - 2 tab PO Q4H PRN PRN (Reason: Pain) Qty: 12 0RF Enbrel SureClick 50 mg/mL (1 mL) pen injector SUBCUT Primary Care Provider: Rambo Robertson Referrals: Rambo Robertson MD [Primary Care Provider] - 5-7 Days Disposition Disposition: Home, Self Care
[2022-08-09] MEDS: Ondansetron 4 MG/2 ML Vial IV (18:04)
[2022-08-09] MEDS: Ketorolac 30 MG/ML Syringe IV (18:05)
[2022-08-09] MEDS: Morphine 4 MG/ML Syringe IV (18:06)
[2022-08-09 18:16] LABS: Absolute Lymphocyte Count 0.48 X10^3/uL (0.83-4.51); Basophil# 0.04 X10^3/uL; Basophil% 0.5 % (0-1); Eosinophil# 0.08 X10^3/uL; Hematocrit 47.5 % (37-47); Hemoglobin 15.9 g/dL (12.0-15.0); Lymphocyte # 0.48 X10^3/ul (0.83-4.51); Lymphocyte % 6.1 % (19-41); Mean Corp Hgb Conc 33.5 g/dL (32-36); Mean Corpuscular Hgb 28.5 pg (27.0-32.0); Mean Corpuscular Volume 85.1 fL (81-99); Mean Platelet Vol. 8.8 fl (6.2-12.0); Monocyte# 0.19 X10^3/uL; Monocyte% 2.4 % (0-10); NRBC Flagged by Analyzer 0 % (0-5); Neutrophil # 7.04 X10^3/uL (2.7-7.7); Neutrophil % 89.5 % (47-70); POSITIVE DIFFERENTIAL YES; Platelet Count 281 K/mm3 (150-450); RBC Distribution Width CV 15.1 % (11.6-14.6); RBC Distribution Width SD 47.1 fl (35.1-43.9); Red Blood Count 5.58 M/mm3 (4.2-5.4); White Blood Count 7.9 K/mm3 (4.4-11.0)
--- NOTE | 2022-08-09 18:19 | RAD_ITS ---
INDICATION: sob EXAMINATION/TECHNIQUE: X-RAY - XR Chest 1 View COMPARISON: 09/28/2018. FINDINGS: LINES/DEVICES: None. LUNGS: No consolidation, edema or effusion. No pneumothorax. MEDIASTINUM AND CARDIOVASCULAR STRUCTURES: Cardiac silhouette not enlarged. Central airways and mediastinal contour are unremarkable. BONES AND SOFT TISSUES: Unremarkable. RAD/Chest 1 View (Portable) IMPRESSION: No radiographic evidence of acute cardiopulmonary disease. Electronically Signed: Dorothy Canales MD at 18:52 EST Reading Location ID and State: [id number] / Tel , Service support ,
[2022-08-09 18:21] LABS: Differential Indicated SCAN CRITERIA MET
[2022-08-09 18:36] LABS: Anion Gap 7 (5-15); BUN 14 mg/dL (7-18); BUN/Creat Ratio 15.9 RATIO (10-20); Calcium,Total 8.8 mg/dL (8.5-10.1); Chloride 105 mmol/L (98-107); Creatinine, Serum 0.88 mg/dL (0.55-1.02); EST Glomerular Filtration Rate 69 mL/min (>60); Est Glom Filt Rate - Afr Amer 84 mL/min (>60); Estimated Creatinine Clearance 64.46 ml/min; Glucose 103 mg/dL (74-106); Potassium 3.7 mmol/L (3.5-5.1); Sodium Level 139 mmol/L (136-145)
[2022-08-09 18:50] VITALS: BP 128/88; PULSE 74; RESP 16; TEMP 36.6; O2SAT 98
[2022-08-09 18:54] LABS: Platelet Estimate ADEQUATE (ADEQ)
[2022-08-09 18:55] LABS: Red Cell Morphology N CHROM NORMAL (NORM C&C)
[2022-08-09] MEDS: 0.9% Normal Saline 1,000 ML 150 ML IV (19:25)
[2022-08-09] MEDS: HYDROmorphone 0.5 MG/0.5 ML SYRINGE IV (19:26)
[2022-08-09] MEDS: proMETHazine 25 MG/ML Syringe 12.5 MG IM (20:00)
[2022-08-09 20:34] VITALS: BP 146/78; PULSE 66; RESP 18; TEMP 36.6; O2SAT 99
== END 2022-08-09 20:55 | disposition home or self-care (01) ==
PROVIDERS: Emergency Provider Emergency Medicine; PCP Family Medicine; Visit Provider Emergency Medicine
DX: T50.905A Adverse effect of unspecified drugs, medicaments and biological substances, initial encounter (principal); R06.02 Shortness of breath; R11.2 Nausea with vomiting, unspecified; M79.10 Myalgia, unspecified site; K21.9 Gastro-esophageal reflux disease without esophagitis; E03.9 Hypothyroidism, unspecified
CPT/HCPCS: 71045; 80048; 85025; 87428; 93005; 96361; 96372; 96374; 96375; 99284; J7030; J2405

== ENCOUNTER 2024-05-23 16:56 | Emergency (ER) | payer OTHER, SELFPAY ==
[2024-05-23 16:57] VITALS: BP 118/58; PULSE 95; RESP 16; TEMP 37.1; O2SAT 100; BMI 25.8
--- NOTE | 2024-05-23 17:50 | CT_ITS ---
EXAMINATION : Head CT w/out contrast HISTORY : dizziness COMPARISON : 03/18/2012. TECHNIQUE : Multiple contiguous axial images were obtained from the skull base to the vertex without intravenous contrast. A radiation dose optimization technique was used for this scan. FINDINGS : The ventricles and sulci are normal in size. There is no evidence for acute intracranial hemorrhage, mass effect, or midline shift. There is no extra-axial fluid collection. There is normal vick-white differentiation, without CT evidence of acute ischemia or infarct. The skull base and calvarium are unremarkable. The orbits are unremarkable. The paranasal sinuses are clear. The mastoid air cells are well-aerated. The soft tissues are unremarkable. CT/Brain/Head without Contrast IMPRESSION: No acute intracranial abnormality. Electronically Signed: Justus Pandey MD at 18:44 EDT ,
--- NOTE | 2024-05-23 17:52 | EDS_ITS ---
HPI History of Present Illness Chief Complaint: Dizziness Informant: patient Onset/Context/Timing Onset: Days Context: Gradual Onset Timing: Continuous Current Severity: Mild Maximum Severity: Mild Narrative Narrative: 63-year-old female history of rheumatoid arthritis and prior thyroid cancer for which she is on thyroid replacement medication. States she has had dizziness which she describes as near fainting or lightheadedness. No strokelike symptoms. No significant headache or head trauma. No weakness of upper or lower extremities. No trouble or change in her vision or speech. No numbness or tingling. Said this been going on since evening it was gradual and has been constant. It is when she walks she feels like she is going to collapse. Denies chest pain or shortness of breath. No recent illness or fever. Prior similar symptoms: No Recent Illness/Hospitalization: No PFSH [facility] Medical History Medication reaction Myalgia Hypothyroidism GERD (gastroesophageal reflux disease) Rheumatoid arthritis Home Medications ?Medication ?Instructions ?Recorded ?Last Taken ?Type Chlordiazepoxide/Clidinium Br 1 capsule PO BID 10/05/13 Unknown History [Chlordiazepoxide-Clidinium Cap] cyclobenzaprine 10 mg tablet 10 mg PO TID 10/05/13 Unknown History dexlansoprazole 60 mg 60 mg PO DAILY 10/05/13 Unknown History capsule,biphase delayed release (Dexilant) estradiol 0.1 mg/24 hr semiweekly 0.1 mg topical QWEEK 10/05/13 Unknown History transdermal patch hydrocodone-acetaminophen 5-325mg 1 - 2 tab PO Q4H PRN PRN Pain ##12 10/05/13 Unknown Rx 5mg-325mg hydroxychloroquine 200 mg tablet 200 mg PO BIDCM 10/05/13 Unknown History levothyroxine 150 mcg tablet 150 mcg PO DAILY 10/05/13 Unknown History etanercept 50 mg/mL (1 mL) mg subcut 08/08/21 Unknown History subcutaneous pen injector (Enbrel SureClick) hydrocodone-acetaminophen 5-325mg 1 tab PO Q6H PRN pain 3 days #10 08/09/22 Unknown Rx 5mg-325mg tabs ondansetron 4 mg disintegrating 4 mg PO Q8H PRN nausea and 08/09/22 Unknown Rx tablet vomiting #10 tabs promethazine 25 mg tablet 25 mg PO TID PRN nausea and 08/09/22 Unknown Rx vomiting #10 tabs Allergy/AdvReac Type Severity Reaction Status Date / Time aminocaproic acid (From Allergy Rash Verified 05/23/24 16:57 Amicar) methotrexate AdvReac Other Verified 05/23/24 16:57 Social History Smoking Status: Never smoker ROS ROS ED ROS Narrative Near syncope. Lightheadedness. No recent illness. Constitutional Constitutional ED: Denies chills or fever(s) Eyes Eyes: Denies blurry vision ENT ENT ED: Denies ear pain Cardiovascular Cardiovascular: Denies chest pain Respiratory/Chest Respiratory/Chest: Denies cough or dyspnea Gastrointestinal Gastrointestinal: Denies abdominal pain Genitourinary Genitourinary ED: Denies dysuria or hematuria Musculoskeletal Musculoskeletal: Denies arthralgias Integumentary Denies abscess Neurologic Neurologic: Denies headache(s) Psychiatric Psychiatric: Denies anxiety Endocrine Endocrinology: Denies cold intolerance Hematologic/Lymphatic Hematologic/Lymphatic: Reports none Allergic/Immunologic Allergic/Immunologic ED: Denies mouth swelling, tongue swelling or urticaria EXAM Physical Exam Narrative Exam Narrative: Well-appearing 63-year-old female. Vital signs stable afebrile. Pulse ox on percent on room air no hypoxia. H EENT exam unremarkable. Pupils round react light. Mytrex membranes. No facial droop. Normal speech. No trauma. Neck nontender no lymphadenopathy. Lungs clear to auscultation bilateral. Heart regular rate and rhythm rate about 90 no murmur. Chest wall ribs nontender. Abdomen soft nontender. No peritoneal signs. Moving all 4 extremities. 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 Dorsi plantarflexion intact. No drift. Fingertip to nose within normal limits. Tbac-up-wrvo within normal limits. Back nontender. Neurologic exam normal. NIH 0. Const Vital Signs: 05/23/24 16:57 05/23/24 18:47 05/23/24 20:00 Temperature 98.7 F Temperature Source Temporal Pulse Rate 95 80 Pulse Rate [Lying] 79 Pulse Rate [Sitting (for 1 minute prior to obtaining)] 87 Pulse Rate [Standing (for 1 minute prior to obtaining)] 103 H Respiratory Rate 16 18 Blood Pressure 118/58 L 117/80 Blood Pressure [Lying] 119/76 Blood Pressure [Sitting (for 1 minute prior to obtaining)] 137/89 H Blood Pressure [Standing (for 1 minute prior to obtaining)] 144/92 H Blood Pressure Mean 78 92 Blood Pressure Mean [Lying] 90 Blood Pressure Mean [Sitting (for 1 minute prior to obtaining)] 105 Blood Pressure Mean [Standing (for 1 minute prior to obtaining)] 109 Pulse Ox 100 99 Oxygen Delivery Method Room Air Room Air Positive well nourished and well developed; Negative for cachectic, contractures or unkempt General Appearance ED: well developed and NAD; Negative for unkempt, cachectic, contractures, cyanotic, diaphoretic or pallor Nutritional Appearance: Negative for cachectic HEENT Reports moist mucous membranes Negative for trauma or tenderness Eyes PERRL and EOMs intact bilaterally General Eye ED: Negative for pale conjunctiva or scleral icterus Neck no lymphadenopathy, supple and no JVD General: Negative for tenderness Lymph Lymphatic: Negative for other Chest Wall inspection of chest normal and palpation of chest normal Chest: Negative for other Resp normal respiratory effort and clear to auscultation bilaterally Effort and Inspection: Negative for retractions Auscultation: Negative for rales, rhonchi, wheezes or diminished lung sounds Cardio regular rate, regular rhythm, S1 normal heart sound, S2 normal heart sound and no murmurs Palpation: Negative for palpable S3 or palpable S4 Rate: Negative for bradycardia or tachycardic Rhythm: Negative for abnormal rhythm GI normal to inspection, nondistended, normoactive bowel sounds, non-tender, non- distended and no masses Inspection: Negative for abdominal distention Palpation: soft; Negative for tender, guarding or rebound tenderness present Back/Spine no CVA tenderness General Back: Negative for CVA tenderness Cervical Spine: Negative for cervical spine tenderness Thoracic Spine / Upper Back: Negative for thoracic spinal tenderness Lumbar Spine / Lower Back: Negative for lumbar spinal tenderness Extremity normal to inspection General Extremety ED: Negative for edema or tenderness General Extremity: Negative for edema Neuro oriented x3 and CN's II-XII intact bilaterally Sensorium / Orientation: alert; Negative for orientation impaired, lethargic or stuporous Motor Exam: strength 5/5 throughout; Negative for general weakness or strength abnormal Psych mental status grossly normal Appearance: Negative for unkempt Attitude: No agitated Skin No no rashes or lesions noted, no wounds and skin turgor normal Skin Narrative: Patient does have a rash circular areas mostly raw skin surrounding her left lower leg. Does not look like tinea. Does not look like cellulitis. No petechiae or purpura. No bleeding. No sloughing of skin. No vesicles. Patient states she has had this for months. General Skin Exam: Negative for jaundice or pallor Lesions: No lesion noted Rashes: rashes noted Trauma: Negative for abrasion Wounds: Negative for wounds noted MDM MDM MDM Narrative Medical decision making narrative: 63-year-old female with near syncopal episodes. She says been constant for 4 d ays worse with walking. Her vital signs and exam are benign and normal. CAT scan labs will be obtained. This does not seem like stroke or strokelike symptoms. She has a normal cardiac and lung exam. Repeat exam at 9:29 PM unchanged. We went over her test results. Orthostatic vital signs per nursing were negative. Nursing walked her up and down the hallway patient had no trouble ambulating. No ataxia. We discussed treatment options. Admission with follow-up MRI or outpatient follow-up with primary care physician. She prefers to be discharged home with outpatient follow-up. I do not have a specific cause for her lightheadedness. History & Record Review Discussion w/independent historian: Patient and Family Additional record(s) reviewed:: Prior inpatient record, Prior outpatient record, Prior ED visit and Prior labs Lab Data Attestation: I reviewed the patient's lab results. Lab results narrative: CBC normal. White count of 5. H&H 14 and 43. Platelets 301. Chemistries show gap 9. BUN of 30 creatinine 0.9. Glucose 80. Liver enzymes normal. TSH low at 0.046. Labs: Laboratory Results - last 24 hr 05/23/24 17:43 WBC 5.9 RBC 4.97 Hgb 14.3 Hct 43.8 MCV 88.1 MCH 28.8 MCHC 32.6 RDW Std Deviation 40.0 RDW Coeff of Natalia 12.3 Plt Count 301 MPV 10.6 Immature Gran % (Auto) 0.300 Neut % (Auto) 54.9 Lymph % (Auto) 28.5 Miller % (Auto) 9.8 Eos % (Auto) 5.3 H Baso % (Auto) 1.2 H Absolute Neuts (auto) 3.2 Absolute Lymphs (auto) 1.68 Nucleated RBC % 0 Sodium 138 Potassium 3.7 Chloride 107 Carbon Dioxide 22.0 Anion Gap 9 BUN 30 H Creatinine 0.90 Estim Creat Clear Calc 67.57 Est GFR (MDRD) Af Amer 81 Est GFR (MDRD) Non-Af 67 BUN/Creatinine Ratio 33.3 H Glucose 80 Calcium 9.6 Total Bilirubin 0.50 AST 20 ALT 22 Alkaline Phosphatase 62 Total Protein 7.4 Albumin 3.9 Globulin 3.5 Albumin/Globulin Ratio 1.1 TSH 0.046 L Radiography Diagnostic Testing: Clinical Impression(s) from Imaging Studies Brain CT 05/23/24 17:50 IMPRESSION: No acute intracranial abnormality. Electronically Signed: Justus Pandey MD at 18:44 EDT , Discharge Plan Triage Chief Complaint: Dizziness ED Provider: Saúl Segovia Dx/Rx/DC Orders Clinical Impression: Dizziness of unknown etiology Instructions: ED Dizziness, Uncertain Cause Prescriptions: No Action cyclobenzaprine 10 MG tablet 10 mg PO TID levothyroxine 150 MCG tablet 150 mcg PO DAILY hydroxychloroquine 200 MG tablet 200 mg PO BIDCM dexlansoprazole [Dexilant] 60 MG capsule,biphase delayed releas 60 mg PO DAILY Chlordiazepoxide/Clidinium Br [Chlordiazepoxide-Clidinium Cap] 1 EACH capsule 1 capsule PO BID estradiol 0.1 MG patch 0.1 mg topical QWEEK Patient Comments: CHANGES PATCH 2 TIMES WEEKLY hydrocodone-acetaminophen 1 TABLET tablet 1 - 2 tab PO Q4H PRN PRN (Reason: Pain) Qty: 12 0RF Enbrel SureClick 50 mg/mL (1 mL) pen injector SUBCUT hydrocodone-acetaminophen 5-325 mg tablet 1 tab PO Q6H PRN (Reason: pain) 3 Days Qty: 10 0RF ondansetron 4 mg tablet,disintegrating 4 mg PO Q8H PRN (Reason: nausea and vomiting) Qty: 10 0RF promethazine 25 mg tablet 25 mg PO TID PRN (Reason: nausea and vomiting) Qty: 10 0RF Primary Care Provider: Rambo Robertson Referrals: Rambo Robertson MD [Primary Care Provider] - As soon as possible Activity Restrictions/Additional Instructions: Call and follow-up your primary care physician. Your CAT scan and labs today were basically unremarkable. We do not have a specific cause for your dizziness. Your exam is unremarkable. They may need to do further testing to come up with a specific diagnosis. Print Language: Cam[place]onian Disposition Disposition: Home, Self Care
[2024-05-23 18:26] LABS: ALB/GLOB Ratio 1.1 RATIO (0.9-2.4); AST(SGOT) 20 U/L (15-37); Alanine Aminotransfer ALT/SGPT 22 U/L (13-56); Albumin, Serum 3.9 g/dL (3.2-5.0); Alkaline Phosphatase 62 U/L (45-117); Anion Gap 9 (5-15); BUN 30 mg/dL (7-18); BUN/Creat Ratio 33.3 RATIO (10-20); Calcium,Total 9.6 mg/dL (8.5-10.1); Chloride 107 mmol/L (98-107); EST Glomerular Filtration Rate 67 mL/min (>60); Est Glom Filt Rate - Afr Amer 81 mL/min (>60); Estimated Creatinine Clearance 67.57 ml/min; Globulin 3.5 g/dL (2.2-4.2); Glucose 80 mg/dL (74-106); Potassium 3.7 mmol/L (3.5-5.1); Protein, Total 7.4 g/dL (6.4-8.2); Sodium Level 138 mmol/L (136-145); Thyroid Stim Hormone (TSH) 0.046 uIU/mL (0.358-3.740)
[2024-05-23 18:29] LABS: Absolute Lymphocyte Count 1.68 X10^3/uL (0.83-4.51); Absolute Neutrophil Count 3.2 X10^3/uL (2.0-7.7); Basophil# 0.07 X10^3/uL; Basophil% 1.2 % (0-1); Eosinophil# 0.31 X10^3/uL; Eosinophils% 5.3 % (0-5); Hematocrit 43.8 % (37-47); Hemoglobin 14.3 g/dL (12.0-15.0); Lymphocyte # 1.68 X10^3/ul (0.83-4.51); Lymphocyte % 28.5 % (19-41); Mean Corp Hgb Conc 32.6 g/dL (32-36); Mean Corpuscular Hgb 28.8 pg (27.0-32.0); Mean Corpuscular Volume 88.1 fL (81-99); Mean Platelet Vol. 10.6 fl (6.2-12.0); Monocyte# 0.58 X10^3/uL; Monocyte% 9.8 % (0-10); NRBC Flagged by Analyzer 0 % (0-5); Neutrophil # 3.24 X10^3/uL (2.7-7.7); Neutrophil % 54.9 % (47-70); Platelet Count 301 K/mm3 (150-450); RBC Distribution Width CV 12.3 % (11.6-14.6); Red Blood Count 4.97 M/mm3 (4.2-5.4); White Blood Count 5.9 K/mm3 (4.4-11.0)
[2024-05-23 18:47] VITALS: BP 119/76; BP 137/89; BP 144/92; PULSE 103; PULSE 79; PULSE 87
[2024-05-23 20:00] VITALS: BP 117/80; PULSE 80; RESP 18; O2SAT 99
[2024-05-23 21:43] VITALS: O2SAT 99
--- NOTE | 2024-05-23 21:44 | ED.RN ---
pt. was dizzy while ambulating and reports shakiness
[2024-05-23 22:00] VITALS: BP 137/85; PULSE 89; RESP 18; O2SAT 99
[2024-05-23 22:03] VITALS: BP 137/85; PULSE 89; RESP 18; TEMP 37; O2SAT 99
== END 2024-05-23 22:23 | disposition home or self-care (01) ==
PROVIDERS: Emergency Provider Emergency Medicine; PCP Family Medicine; Visit Provider Emergency Medicine
DX: R42 Dizziness and giddiness (principal)
CPT/HCPCS: 70450; 80053; 84443; 85025; 93005; 99284; A4216

== ENCOUNTER 2024-09-23 23:08 | Emergency (ER) | payer OTHER, SELFPAY ==
[2024-09-23 23:09] VITALS: BP 127/72; PULSE 83; RESP 19; TEMP 36.4
[2024-09-23 23:18] VITALS: BP 127/72; PULSE 75; RESP 19; TEMP 36.4; O2SAT 95
--- NOTE | 2024-09-23 23:52 | RAD_ITS ---
INDICATION: pain EXAMINATION/TECHNIQUE: X-RAY - RIGHT XR Knee 3 Views 3 VIEWS COMPARISON: No relevant prior comparison study available FINDINGS: BONES: Surgical hardware femoral and tibial components of the prosthesis appear well situated in anatomic alignment. No fracture demonstrated. JOINTS: No dislocation. SOFT TISSUES: Unremarkable. RAD/Knee 3 Views IMPRESSION: Total knee arthroplasty. No evidence of fracture. Electronically Signed: Muriel Ochoa MD at 1:52 EST ,
--- NOTE | 2024-09-23 23:59 | RAD_ITS ---
INDICATION: cough EXAMINATION/TECHNIQUE: X-RAY - XR Chest 2 Views COMPARISON: Prior study dated: 08/09/2022 FINDINGS: LINES/DEVICES: None. LUNGS: No consolidation. No pneumothorax. MEDIASTINUM: Unremarkable. CARDIAC SILHOUETTE: Not enlarged. BONES AND SOFT TISSUES: No acute abnormalities. Degenerative changes in the dorsal spine. RAD/Chest PA and Lateral IMPRESSION: No evidence of active intrathoracic disease. Electronically Signed: Muriel Ochoa MD at 1:53 EST ,
[2024-09-24] MEDS: Morphine 4 MG/ML Syringe IV (00:09)
[2024-09-24] MEDS: Ondansetron 4 MG/2 ML Vial IV ×2 (00:09→04:53)
[2024-09-24] MEDS: 0.9% Normal Saline (1000mL) 1,000 ML 999 ML IV (00:09)
[2024-09-24 00:14] VITALS: BP 101/61; PULSE 77; RESP 16; TEMP 36.6; O2SAT 94
[2024-09-24 00:43] LABS: AST(SGOT) 19 U/L (15-37); Alanine Aminotransfer ALT/SGPT 14 U/L (13-56); Albumin, Serum 4.4 g/dL (3.2-5.0); Alkaline Phosphatase 77 U/L (45-117); Anion Gap 10 (5-15); BUN 18 mg/dL (7-18); BUN/Creat Ratio 20.8 RATIO (10-20); Bilirubin, Direct 0.24 mg/dL (0.00-0.30); CRP 5.09 mg/L (0.0-3.0); Calcium,Total 9.7 mg/dL (8.5-10.1); Chloride 109 mmol/L (98-107); Creatinine, Serum 0.87 mg/dL (0.55-1.02); EST Glomerular Filtration Rate 70 mL/min (>60); Est Glom Filt Rate - Afr Amer 85 mL/min (>60); Estimated Creatinine Clearance 69.82 ml/min; Globulin 3.1 g/dL (2.2-4.2); Glucose 103 mg/dL (74-106); Lipase 70 U/L (13-75); Potassium 3.2 mmol/L (3.5-5.1); Protein, Total 7.5 g/dL (6.4-8.2); Sodium Level 140 mmol/L (136-145)
[2024-09-24 00:45] LABS: Lactic Acid 0.9 mmol/L (0.4-1.9)
[2024-09-24 00:57] LABS: Absolute Lymphocyte Count 1.84 X10^3/uL (0.83-4.51); Absolute Neutrophil Count 3.2 X10^3/uL (2.0-7.7); Basophil# 0.07 X10^3/uL; Basophil% 1.2 % (0-1); Eosinophil# 0.34 X10^3/uL; Eosinophils% 5.7 % (0-5); Hematocrit 36.4 % (37-47); Hemoglobin 12.4 g/dL (12.0-15.0); Lymphocyte # 1.84 X10^3/ul (0.83-4.51); Lymphocyte % 30.8 % (19-41); Mean Corp Hgb Conc 34.1 g/dL (32-36); Mean Corpuscular Volume 88.1 fL (81-99); Mean Platelet Vol. 10.7 fl (6.2-12.0); Monocyte# 0.57 X10^3/uL; Monocyte% 9.5 % (0-10); NRBC Flagged by Analyzer 0 % (0-5); Neutrophil # 3.15 X10^3/uL (2.7-7.7); Neutrophil % 52.6 % (47-70); Platelet Count 319 K/mm3 (150-450); RBC Distribution Width CV 12.9 % (11.6-14.6); RBC Distribution Width SD 42.1 fl (35.1-43.9); Red Blood Count 4.13 M/mm3 (4.2-5.4)
[2024-09-24 00:59] VITALS: BP 118/98; PULSE 73; RESP 16; TEMP 36.6; O2SAT 99
[2024-09-24 01:06] LABS: Erythrocyte Sedimentation Rate 4 mm/hr (0-30)
[2024-09-24 01:37] LABS: Mucous, Urine 0 SEEN /hpf (<or=2+); Red Blood Cells-Urine 0 SEEN /hpf (0-5); Squamous Epithelial Cells - UA 0 SEEN /hpf (5-10); White Blood Cells 0 SEEN /hpf (0-5)
--- NOTE | 2024-09-24 01:37 | CT_ITS ---
EXAM: CT Abdomen And Pelvis W/ Contrast Injection HISTORY: abd pain TECHNIQUE: Routine protocol CT abdomen pelvis. IV Contrast: IV 100mL [id number] . Oral Contrast: without. Sagittal and coronal images were reconstructed. RADIATION DOSAGE (If Supplied By Facility): CTDIvol = ( 21.51 ) mGy, DLP = ( 740.66 ) mGycm Individualized dose optimization techniques were used for this CT. COMPARISON: CT abdomen pelvis 05/23/2014. LIMITATIONS: None. FINDINGS: LOWER CHEST: Dependent atelectasis in the lung bases. LIVER: Unremarkable. GALLBLADDER/BILE DUCTS: Small gallstones in the gallbladder. No adjacent inflammatory changes. PANCREAS: Unremarkable. SPLEEN: Small 1.5 cm structure posteriorly with peripheral enhancement, not seen on the prior study which was without IV contrast. ADRENAL GLANDS: Unremarkable. KIDNEYS / URETERS: Unremarkable. BOWEL / MESENTERY: Unremarkable. No bowel obstruction. APPENDIX: Identified and normal. No evidence of acute appendicitis. PERITONEUM: No free air. No free fluid. VESSELS: Abdominal aorta is normal caliber. RETROPERITONEUM: Unremarkable. REPRODUCTIVE ORGANS: Uterus not identified. BLADDER: Minimally distended. ABDOMINAL WALL: Unremarkable. BONES: No acute abnormality. Degenerative changes lumbar spine OTHER: Bilateral breast implants. CT/Abdomen/Pelvis W IV Cont ONLY IMPRESSION: No acute findings. Cholelithiasis. Incidental indeterminate splenic lesion 1.5 cm. Recommend follow-up with MRI in 6 months. Electronically Signed: Muriel Ochoa MD at 4:12 EST ,
[2024-09-24 01:40] LABS: Glucose, Dipstick Normal (Normal); Ketone-Dipstick 15 mg/dl (Negative); Leukocyte Esterase-Dipstick 25 /ul (Negative); Nitrite-Dipstick Negative (Negative); Occult Blood-Urine Negative /ul (Negative); Protein-Dipstick 30 mg/dl (Negative); Specific Gravity, Urine 1.015 (1.002-1.030); Urine Bilirubin Dipstick Negative (Negative); Urine Urobilinogen 1 mg/dl (Normal)
[2024-09-24 01:49] LABS: Color, Urine Yellow (Yellow); Urine Clarity Clear (Clear)
[2024-09-24 01:50] LABS: Bacteria 2+ /hpf (None Seen)
[2024-09-24 02:00] VITALS: BP 116/64; PULSE 72; RESP 18; TEMP 36.4; O2SAT 94
[2024-09-24 02:18] VITALS: BP 116/64; PULSE 72; RESP 18; O2SAT 94
[2024-09-24] MEDS: HYDROmorphone 0.5 MG/0.5 ML SYRINGE IV (02:20)
--- NOTE | 2024-09-24 03:13 | EX.ED.DYSGE1 ---
HPI History of Present Illness Chief Complaint: Weakness Informant: patient and spouse/S.O. Narrative Narrative: Patient is a 64-year-old female with past medical history of GERD hypothyroidism and rheumatoid arthritis. She states of the last 24 hours she has been having intermittent abdominal pain with nausea. She states she has had subjective fevers and chills. She denies any recent sick contact but states that [id number] medication is not controlling her pain and she also has concern for infection and went to this comes in for evaluation. [facility] Medical History Medication reaction Myalgia Hypothyroidism GERD (gastroesophageal reflux disease) Rheumatoid arthritis Home Medications ?Medication ?Instructions ?Recorded ?Last Taken ?Type Chlordiazepoxide/Clidinium Br 1 capsule PO BID 10/05/13 Unknown History [Chlordiazepoxide-Clidinium Cap] cyclobenzaprine 10 mg tablet 10 mg PO TID 10/05/13 Unknown History dexlansoprazole 60 mg 60 mg PO DAILY 10/05/13 Unknown History capsule,biphase delayed release (Dexilant) estradiol 0.1 mg/24 hr semiweekly 0.1 mg topical QWEEK 10/05/13 Unknown History transdermal patch hydrocodone-acetaminophen 5-325mg 1 - 2 tab PO Q4H PRN PRN Pain ##12 10/05/13 Unknown Rx 5mg-325mg hydroxychloroquine 200 mg tablet 200 mg PO BIDCM 10/05/13 Unknown History levothyroxine 150 mcg tablet 150 mcg PO DAILY 10/05/13 Unknown History etanercept 50 mg/mL (1 mL) mg subcut 08/08/21 Unknown History subcutaneous pen injector (Enbrel SureClick) hydrocodone-acetaminophen 5-325mg 1 tab PO Q6H PRN pain 3 days #10 08/09/22 Unknown Rx 5mg-325mg tabs ondansetron 4 mg disintegrating 4 mg PO Q8H PRN nausea and 08/09/22 Unknown Rx tablet vomiting #10 tabs promethazine 25 mg tablet 25 mg PO TID PRN nausea and 08/09/22 Unknown Rx vomiting #10 tabs ondansetron 4 mg disintegrating 4 mg PO TID PRN nausea and 09/24/24 Unknown Rx tablet vomiting #21 tabs Allergy/AdvReac Type Severity Reaction Status Date / Time aminocaproic acid (From Allergy Rash Verified 05/23/24 16:57 Amicar) methotrexate AdvReac Other Verified 05/23/24 16:57 Social History Smoking Status: Never smoker ROS ROS ED Constitutional Constitutional ED: Reports chills, fever(s) and subjective Eyes Eyes: Denies blurry vision or change in vision ENT ENT ED: Reports rhinorrhea; Denies sore throat Cardiovascular Cardiovascular: Denies chest pain Respiratory/Chest Respiratory/Chest: Reports cough; Denies dyspnea Gastrointestinal Gastrointestinal: Reports abdominal pain and nausea; Denies diarrhea or vomiting Genitourinary Genitourinary ED: Denies dysuria Musculoskeletal Musculoskeletal: Reports myalgias and other Details: Positive right knee pain Integumentary Denies rash Neurologic Neurologic: Reports weakness; Denies headache(s) Hematologic/Lymphatic Hematologic/Lymphatic: Denies easy bleeding or easy bruising EXAM Physical Exam Const Vital Signs: 09/23/24 23:09 09/23/24 23:18 09/23/24 23:18 Temperature 97.6 F L 97.6 F L Temperature Source Oral Oral Pulse Rate 83 75 Respiratory Rate 19 H 19 H Respiratory Effort Normal Non-Labored Blood Pressure 127/72 H 127/72 H Blood Pressure Mean 90 90 Pulse Ox 95 Oxygen Delivery Method Room Air 09/24/24 00:14 09/24/24 00:59 09/24/24 02:00 Temperature 97.9 F 97.9 F 97.5 F L Temperature Source Oral Oral Oral Pulse Rate 77 73 72 Respiratory Rate 16 16 18 Respiratory Effort Blood Pressure 101/61 118/98 H 116/64 Blood Pressure Mean 74 104 81 Pulse Ox 94 99 94 Oxygen Delivery Method Room Air Room Air Room Air 09/24/24 02:18 09/24/24 04:00 09/24/24 04:50 Temperature 98.1 F Temperature Source Pulse Rate 72 70 78 Respiratory Rate 18 18 18 Respiratory Effort Blood Pressure 116/64 122/68 H 105/57 L Blood Pressure Mean 81 86 73 Pulse Ox 94 97 96 Oxygen Delivery Method Room Air Room Air Positive well nourished and well developed General Appearance ED: well developed; Negative for pallor HEENT HEENT Narrative: No tongue or lip swelling no oral lesions no airway edema or compromise No secondary findings in the posterior pharynx to suggest infection Eyes PERRL and EOMs intact bilaterally General Eye ED: Negative for scleral icterus Neck supple Neck Narrative: No nuchal rigidity or meningeal signs Resp normal respiratory effort and clear to auscultation bilaterally Cardio regular rate and regular rhythm Rate: other Other Details: Heart is regular rate and rhythm without murmurs rubs or gallop Radial and carotid pulses are equal and symmetric GI non-distended and no masses GI Narrative: Abdomen is soft and nondistended with hyperactive bowel sounds. There is pain on palpation across the upper abdomen diffusely without voluntary guarding or rigidity. No pulsatile mass or fluid wave noted Auscultation: hyperactive bowel sounds Palpation: soft Extremity Extremity Narrative: Patient has a surgical scar to the anterior aspect of her right knee consistent with a recent right knee replacement roughly 1 month ago. The wound is clean dry and intact. No surrounding erythema or warmth no lymphangitic streaking Negative Homans' sign bilaterally Neuro oriented x3, CN's II-XII intact bilaterally and no sensory deficits noted Sensorium / Orientation: alert Psych mental status grossly normal Skin no rashes or lesions noted Skin Narrative: Postsurgical wound to the right knee as documented above that is otherwise clean dry and intact without secondary changes to suggest infection General Skin Exam: Negative for jaundice or pallor MDM MDM MDM Narrative Medical decision making narrative: Patient arrived to the ER with stable vitals. She reported subjective fevers and chills with generalized abdominal discomfort. Differential diagnosis is for viral infection such as norovirus versus rotavirus versus COVID versus influenza versus RSV. Patient could have potential pancreatitis or biliary colic or acute cholecystitis. She has had recent surgery to her right knee and even though the area looks like it is healing well there is concern for postoperative infection. There is concern for acute blood loss anemia acute kidney injury or electrolyte abnormality. Basic blood work was obtained and patient's white count is normal there is no lactic acidosis or left shift. Her ESR is normal at 4 and her sed rate is only up by 2 points which is not clinically significant. Secondary to these findings I have low concern for a postoperative or systemic infection. Patient's liver enzymes are not elevated and her lipase are normal going against biliary colic acute cholecystitis or pancreatitis. Patient's urine sample shows +2 bacteria but there are no white blood cells and therefore I have low concern for acute UTI and I will not start antibiotics but the patient will have a urine sent for culture. As her pain was waxing and waning I did like to perform a CT scan of her abdomen and pelvis to ensure there is no acute abdominal pathology. The CT showed gallstones without signs of acute cholecystitis and otherwise was normal. I do not believe her pain was related to biliary colic but that this was an incidental finding. Still I will give her an order form for an outpatient ultrasound to further assess her gallbladder. However at this time her pain has improved her vitals are stable her workup is negative and therefore I do not feel there is need for further evaluation in the ER and her symptoms are most likely due to a viral infection and she is otherwise safe for discharge History & Record Review Discussion w/independent historian: Patient and Significant other Lab Data Attestation: I reviewed the patient's lab results. Labs: Laboratory Results - last 24 hr 09/23/24 09/24/24 23:20 01:28 WBC 6.0 RBC 4.13 L Hgb 12.4 Hct 36.4 L MCV 88.1 MCH 30.0 MCHC 34.1 RDW Std Deviation 42.1 RDW Coeff of Natalia 12.9 Plt Count 319 MPV 10.7 Immature Gran % (Auto) 0.200 Neut % (Auto) 52.6 Lymph % (Auto) 30.8 [place] % (Auto) 9.5 Eos % (Auto) 5.7 H Baso % (Auto) 1.2 H Absolute Neuts (auto) 3.2 Absolute Lymphs (auto) 1.84 Nucleated RBC % 0 ESR 4 Sodium 140 Potassium 3.2 L Chloride 109 H Carbon Dioxide 21.0 Anion Gap 10 BUN 18 Creatinine 0.87 Estim Creat Clear Calc 69.82 Est GFR (MDRD) Af Amer 85 Est GFR (MDRD) Non-Af 70 BUN/Creatinine Ratio 20.8 H Glucose 103 Lactic Acid 0.9 Calcium 9.7 Total Bilirubin 0.80 Direct Bilirubin 0.24 AST 19 ALT 14 Alkaline Phosphatase 77 C-React Prot Ext Range 5.09 H Total Protein 7.5 Albumin 4.4 Globulin 3.1 Lipase 70 Urine Color Yellow Urine Clarity Clear Urine pH 7.0 Ur Specific [place] 1.015 Urine Protein 30 H Urine Glucose (UA) Normal Urine Ketones 15 H Urine Occult Blood Negative Urine Nitrite Negative Urine Bilirubin Negative Urine Urobilinogen 1 H Ur Leukocyte Esterase 25 H Urine RBC 0 SEEN Urine WBC 0 SEEN Ur Squamous Epith Cells 0 SEEN Urine Bacteria 2+ Urine Mucus 0 SEEN Radiography Diagnostic Testing: Clinical Impression(s) from Imaging Studies Knee X-Ray 09/23/24 23:52 IMPRESSION: Total knee arthroplasty. No evidence of fracture. Electronically Signed: Muriel Ochoa MD at 1:52 EST , Chest X-Ray 09/23/24 23:59 IMPRESSION: No evidence of active intrathoracic disease. Electronically Signed: Muriel Ochoa MD at 1:53 EST , Abdomen/Pelvis CT 09/24/24 01:37 IMPRESSION: No acute findings. Cholelithiasis. Incidental indeterminate splenic lesion 1.5 cm. Recommend follow-up with MRI in 6 months. Electronically Signed: Muriel Ochoa MD at 4:12 EST , Right knee x-ray as interpreted by the emergency medicine physician reveals hardware to be intact and in place without periprosthetic fracture or joint effusion or free air Chest x-ray as interpreted by the emergency medicine physician reveals no acute infiltrate pneumothorax or pleural effusion Discharge Plan Triage Chief Complaint: Weakness ED Provider: Daniel Taylor Dx/Rx/DC Orders Clinical Impression: Nausea, Viral syndrome, Cholelithiasis, Hypothyroidism, Rheumatoid arthritis Instructions: Gallstones Dc, ED Viral Syndrome (Adult) Prescriptions: New ondansetron 4 mg tablet,disintegrating 4 mg PO TID PRN (Reason: nausea and vomiting) Qty: 21 0RF No Action cyclobenzaprine 10 MG tablet 10 mg PO TID levothyroxine 150 MCG tablet 150 mcg PO DAILY hydroxychloroquine 200 MG tablet 200 mg PO BIDCM dexlansoprazole [Dexilant] 60 MG capsule,biphase delayed releas 60 mg PO DAILY Chlordiazepoxide/Clidinium Br [Chlordiazepoxide-Clidinium Cap] 1 EACH capsule 1 capsule PO BID estradiol 0.1 MG patch 0.1 mg topical QWEEK Patient Comments: CHANGES PATCH 2 TIMES WEEKLY hydrocodone-acetaminophen 1 TABLET tablet 1 - 2 tab PO Q4H PRN PRN (Reason: Pain) Qty: 12 0RF Enbrel SureClick 50 mg/mL (1 mL) pen injector SUBCUT hydrocodone-acetaminophen 5-325 mg tablet 1 tab PO Q6H PRN (Reason: pain) 3 Days Qty: 10 0RF ondansetron 4 mg tablet,disintegrating 4 mg PO Q8H PRN (Reason: nausea and vomiting) Qty: 10 0RF promethazine 25 mg tablet 25 mg PO TID PRN (Reason: nausea and vomiting) Qty: 10 0RF Other Ambulatory Orders: Gallbladder (Routine) Facility: [facility] - Location: [facility] Ordered By: Dr. Daniel Taylor Primary Care Provider: Rambo Robertson Referrals: Rambo Robertson MD [Primary Care Provider] - Activity Restrictions/Additional Instructions: Please obtain the outpatient ultrasound of your gallbladder based on the gallstones found on today's CT scan. Continue with Zofran as needed for nausea/vomit control and keep yourself well-hydrated. Return to the ER should you have any further concerns or worsening of symptoms Print Language: [place]ese Disposition Disposition: Home, Self Care Discharge Date/Time: 09/24/24 05:01
[2024-09-24 04:00] VITALS: BP 122/68; PULSE 70; RESP 18; O2SAT 97
[2024-09-24 04:50] VITALS: BP 105/57; PULSE 78; RESP 18; TEMP 36.7; O2SAT 96
== END 2024-09-24 05:01 | disposition home or self-care (01) ==
PROVIDERS: Emergency Provider Emergency Medicine; PCP Family Medicine; Visit Provider Emergency Medicine
DX: B34.9 Viral infection, unspecified (principal); M06.9 Rheumatoid arthritis, unspecified; K80.20 Calculus of gallbladder without cholecystitis without obstruction; E03.9 Hypothyroidism, unspecified; Z96.651 Presence of right artificial knee joint; Z79.890 Hormone replacement therapy; Z79.899 Other long term (current) drug therapy

== ENCOUNTER 2024-12-08 13:30 | Emergency (ER) | payer OTHER, SELFPAY ==
[2024-12-08 13:32] VITALS: BP 120/56; PULSE 92; RESP 24; TEMP 36.6; O2SAT 100
[2024-12-08 13:46] VITALS: BMI 22.5
[2024-12-08 14:04] LABS: Absolute Lymphocyte Count 1.61 X10^3/uL (0.83-4.51); Absolute Neutrophil Count 4.1 X10^3/uL (2.0-7.7); Basophil# 0.08 X10^3/uL; Basophil% 1.2 % (0-1); Eosinophil# 0.17 X10^3/uL; Eosinophils% 2.6 % (0-5); Hematocrit 40.7 % (37-47); Hemoglobin 13.7 g/dL (12.0-15.0); Lymphocyte # 1.61 X10^3/ul (0.83-4.51); Lymphocyte % 24.6 % (19-41); Mean Corp Hgb Conc 33.7 g/dL (32-36); Mean Corpuscular Hgb 29.1 pg (27.0-32.0); Mean Corpuscular Volume 86.6 fL (81-99); Mean Platelet Vol. 10.3 fl (6.2-12.0); Monocyte# 0.58 X10^3/uL; Monocyte% 8.9 % (0-10); NRBC Flagged by Analyzer 0 % (0-5); Neutrophil # 4.09 X10^3/uL (2.7-7.7); Neutrophil % 62.5 % (47-70); Platelet Count 301 K/mm3 (150-450); RBC Distribution Width CV 12.7 % (11.6-14.6); RBC Distribution Width SD 40.2 fl (35.1-43.9); White Blood Count 6.5 K/mm3 (4.4-11.0)
[2024-12-08] MEDS: Ondansetron 4 MG/2 ML Vial IV (14:14)
[2024-12-08] MEDS: Dicyclomine 10 MG Capsule 20 MG PO ×2 (14:14→18:24)
[2024-12-08] MEDS: 0.9% Normal Saline (1000mL) 1,000 ML 999 ML IV ×2 (14:14→16:07)
--- NOTE | 2024-12-08 14:14 | EX.ED.DYSGE1 ---
HPI History of Present Illness Chief Complaint: Nausea/Vomiting/Diarrhea Narrative Narrative: Patient is a 64-year-old female with past medical history of rheumatoid arthritis, hypothyroidism, GERD who presented to the emergency department the chief complaint of nausea vomiting diarrhea and abdominal pain. Patient states that she has been sick for about a week and a half that her symptoms are progressively worsened prompting her to come here for the further evaluation management. Patient states that her was ill about 2 weeks ago but denies any other sick contacts. States that in October she had her gallbladder removed and denies any other abdominal surgeries. [facility] Medical History Medication reaction Myalgia Hypothyroidism GERD (gastroesophageal reflux disease) Rheumatoid arthritis Home Medications ?Medication ?Instructions ?Recorded ?Last Taken ?Type Chlordiazepoxide/Clidinium Br 1 capsule PO BID 10/05/13 Unknown History [Chlordiazepoxide-Clidinium Cap] cyclobenzaprine 10 mg tablet 10 mg PO TID 10/05/13 Unknown History dexlansoprazole 60 mg 60 mg PO DAILY 10/05/13 Unknown History capsule,biphase delayed release (Dexilant) estradiol 0.1 mg/24 hr semiweekly 0.1 mg topical QWEEK 10/05/13 Unknown History transdermal patch hydrocodone-acetaminophen 5-325mg 1 - 2 tab PO Q4H PRN PRN Pain ##12 10/05/13 Unknown Rx 5mg-325mg hydroxychloroquine 200 mg tablet 200 mg PO BIDCM 10/05/13 Unknown History levothyroxine 150 mcg tablet 150 mcg PO DAILY 10/05/13 Unknown History etanercept 50 mg/mL (1 mL) mg subcut 08/08/21 Unknown History subcutaneous pen injector (Enbrel SureClick) hydrocodone-acetaminophen 5-325mg 1 tab PO Q6H PRN pain 3 days #10 08/09/22 Unknown Rx 5mg-325mg tabs ondansetron 4 mg disintegrating 4 mg PO Q8H PRN nausea and 08/09/22 Unknown Rx tablet vomiting #10 tabs promethazine 25 mg tablet 25 mg PO TID PRN nausea and 08/09/22 Unknown Rx vomiting #10 tabs ondansetron 4 mg disintegrating 4 mg PO TID PRN nausea and 09/24/24 Unknown Rx tablet vomiting #21 tabs dicyclomine 20 mg tablet 20 mg PO TID #30 tabs 12/08/24 Unknown Rx ondansetron 4 mg disintegrating 4 mg PO Q6H PRN nausea and 12/08/24 Unknown Rx tablet vomiting #30 tabs Allergy/AdvReac Type Severity Reaction Status Date / Time aminocaproic acid (From Allergy Rash Verified 12/08/24 13:32 Amicar) methotrexate AdvReac Other Verified 12/08/24 13:32 Surgical History Hx of cholecystectomy Social History Smoking Status: Never smoker ROS ROS ED ROS Narrative Constitutional: Complains of chills denies fevers, headaches, lightness, dizziness Cardiovascular: Denies chest pain or palpitations Respiratory: Denies cough or wheezing shortness of breath Abdomen: Complains of abdominal pain as noted above as well as nausea vomiting diarrhea : Denies urinary symptoms Neurological: Denies numbness, weakness, tingling Musculoskeletal: Denies back pain Skin: Denies rashes or lesions EXAM Physical Exam Narrative Exam Narrative: General: Patient was lying in bed rest comfortably did not appear to be in acute distress Head: Atraumatic, normocephalic Eyes: PERRL bilateral, EOMI bilateral, no conjunctival injection noted Neck: Soft, supple, trachea midline Cardiovascular: Regular rate and rhythm no murmurs gallops rubs noted Respiratory: Clear to auscultation bilaterally no rales rhonchi or wheezes noted Abdomen: Soft, nondistended, tender to palpation left lower quadrant no rebound or guarding on exam Extremities: +5/5 strength noted in the bilateral upper and lower extremities Neurological: Patient following commands knew that she was at [facility] year is 2024 Skin: Warm, dry, intact no rashes or lesions noted Const Vital Signs: 12/08/24 13:32 12/08/24 15:56 12/08/24 16:51 Temperature 97.8 F Temperature Source Oral Pulse Rate 92 81 68 Respiratory Rate 24 H 16 15 Blood Pressure 120/56 L Blood Pressure Mean 77 Pulse Ox 100 94 97 Oxygen Delivery Method Room Air Room Air Room Air 12/08/24 17:50 12/08/24 18:10 Temperature 98.0 F Temperature Source Pulse Rate 75 Respiratory Rate 15 Blood Pressure 127/75 H 127/75 H Blood Pressure Mean 92 92 Pulse Ox 97 Oxygen Delivery Method MDM MDM MDM Narrative Medical decision making narrative: Patient is a 64-year-old female who presented to the emergency department the chief complaint of abdominal pain nausea vomiting diarrhea. On the differential diagnosis includes Melamin to ileus, viral gastroenteritis, COVID, flu, diverticulitis. Once workup is obtained reviewed she will be reevaluated. Patient be given Zofran and Bentyl and IV fluids. Patient's CBC was reviewed showed no evidence leukocytosis white blood count normal 6.5, hemoglobin 13.7, platelet count normal at 301. Patient sodium normal 137, potassium normal at 4, creatinine was 0.85. Do believe that patient does not have an anion gap there has been lab errors recently for that she is not diabetic and her glucose was noted to be normal at 77. Patient's urinalysis did show 150 ketones but no evidence of infection she was given 2 L of IV fluid total. Patient CT abdomen pelvis with IV contrast reviewed and showed status post cholecystectomy and hysterectomy sigmoid diverticulosis no evidence of diverticulitis. Patient tested negative for COVID flu and RSV. Patient was having some more pain therefore she was given morphine and Zofran here in the emergency department. On reevaluation patient she was feeling better she was given oral challenge here in the emergency department which she tolerated without any vomiting. I did offer her admission for observation versus going home and she would like to go home at this point time and return with worsening symptoms or concerns. Patient was given prescriptions for Bentyl and Zofran for at home she was advised to start with a bland diet advance as tolerated. She is agreeable this plan as well as significant other at bedside all question concerns answered she was discharged home in stable condition. Lab Data Labs: Laboratory Results - last 24 hr 12/08/24 12/08/24 13:50 15:23 WBC 6.5 RBC 4.70 Hgb 13.7 Hct 40.7 MCV 86.6 MCH 29.1 MCHC 33.7 RDW Std Deviation 40.2 RDW Coeff of Natalia 12.7 Plt Count 301 MPV 10.3 Immature Gran % (Auto) 0.200 Neut % (Auto) 62.5 Lymph % (Auto) 24.6 [place] % (Auto) 8.9 Eos % (Auto) 2.6 Baso % (Auto) 1.2 H Absolute Neuts (auto) 4.1 Absolute Lymphs (auto) 1.61 Nucleated RBC % 0 Sodium 137 Potassium 4.0 Chloride 102 Carbon Dioxide 17.4 L Anion Gap 18 H BUN 31 H Creatinine 0.85 Estim Creat Clear Calc 62.59 Est GFR (MDRD) Non-Af 76 BUN/Creatinine Ratio 35.9 H Glucose 77 Calcium 9.5 Total Bilirubin 0.59 AST 25 ALT 16 Alkaline Phosphatase 110 H Total Protein 7.3 Albumin 4.6 Globulin 2.7 Albumin/Globulin Ratio 1.7 Lipase 40 Urine Color Yellow Urine Clarity Sl. Cloudy Urine pH 5.0 Ur Specific [place] 1.010 Urine Protein 30 H Urine Glucose (UA) Normal Urine Ketones 150 A* Urine Occult Blood Negative Urine Nitrite Negative Urine Bilirubin Negative Urine Urobilinogen Normal Ur Leukocyte Esterase Negative Urine RBC 0-5 SEEN Urine WBC 0-5 SEEN Ur Squamous Epith Cells 0-5 SEEN Urine Bacteria 0 SEEN Urine Mucus 0 SEEN Radiography Diagnostic Testing: Clinical Impression(s) from Imaging Studies Abdomen/Pelvis CT 12/08/24 14:20 IMPRESSION: Status post cholecystectomy and hysterectomy. Sigmoid diverticulosis with no radiographic evidence of diverticulitis. Reading Location: [place] [address] Discharge Plan Triage Chief Complaint: Nausea/Vomiting/Diarrhea ED Provider: Leander Mcarthur Dx/Rx/DC Orders Clinical Impression: Abdominal pain Prescriptions: New dicyclomine 20 mg tablet 20 mg PO TID Qty: 30 0RF ondansetron 4 mg tablet,disintegrating 4 mg PO Q6H PRN (Reason: nausea and vomiting) Qty: 30 0RF No Action cyclobenzaprine 10 MG tablet 10 mg PO TID levothyroxine 150 MCG tablet 150 mcg PO DAILY hydroxychloroquine 200 MG tablet 200 mg PO BIDCM dexlansoprazole [Dexilant] 60 MG capsule,biphase delayed releas 60 mg PO DAILY Chlordiazepoxide/Clidinium Br [Chlordiazepoxide-Clidinium Cap] 1 EACH capsule 1 capsule PO BID estradiol 0.1 MG patch 0.1 mg topical QWEEK Patient Comments: CHANGES PATCH 2 TIMES WEEKLY hydrocodone-acetaminophen 1 TABLET tablet 1 - 2 tab PO Q4H PRN PRN (Reason: Pain) Qty: 12 0RF Enbrel SureClick 50 mg/mL (1 mL) pen injector SUBCUT hydrocodone-acetaminophen 5-325 mg tablet 1 tab PO Q6H PRN (Reason: pain) 3 Days Qty: 10 0RF ondansetron 4 mg tablet,disintegrating 4 mg PO Q8H PRN (Reason: nausea and vomiting) Qty: 10 0RF promethazine 25 mg tablet 25 mg PO TID PRN (Reason: nausea and vomiting) Qty: 10 0RF ondansetron 4 mg tablet,disintegrating 4 mg PO TID PRN (Reason: nausea and vomiting) Qty: 21 0RF Primary Care Provider: Rambo Robertson Referrals: Rambo Robertson MD [Primary Care Provider] - Activity Restrictions/Additional Instructions: Your CT scan here today did not show anything surgical it showed diverticulosis no evidence of diverticulitis. Your blood work did not show anything acute either. Continue supportive care start bland diet advance as tolerated use prescriptions as prescribed. Return with worsening symptoms or other concerns. Print Language: Mauritian Disposition Disposition: Home, Self Care
[2024-12-08 14:19] LABS: ALB/GLOB Ratio 1.7 RATIO (0.9-2.4); AST(SGOT) 25 U/L (<=31); Alanine Aminotransfer ALT/SGPT 16 U/L (<=34); Albumin, Serum 4.6 g/dL (3.4-4.8); Alkaline Phosphatase 110 U/L (35-104); Anion Gap 18 (5-15); BUN 31 mg/dL (4-19); BUN/Creat Ratio 35.9 RATIO (10-20); Calcium,Total 9.5 mg/dL (7.6-11.0); Carbon Dioxide 17.4 mmol/L (21.0-32.0); Chloride 102 mmol/L (98-108); Creatinine, Serum 0.85 mg/dL (0.70-1.20); EST Glomerular Filtration Rate 76 (>60); Estimated Creatinine Clearance 62.59 ml/min (50-250); Globulin 2.7 g/dL (2.2-4.2); Glucose 77 mg/dL (70-99); Lipase 40 U/L (13-75); Protein, Total 7.3 g/dL (5.9-8.4); Sodium Level 137 mmol/L (133-145); Total Bilirubin 0.59 mg/dL (0.00-1.30)
--- NOTE | 2024-12-08 14:20 | CT_ITS ---
PROCEDURE: ABDOMEN/PELVIS W IV CONT ONLY 12/08/2024 REASON FOR EXAM: LLQ ABD PAIN TECHNIQUE: Abdomen and pelvis CT with intravenous contrast. Coronal and Sagittal reconstruction series were provided. PATIENT PREPARATION: Per protocol ORAL CONTRAST TYPE: None. CONTRAST: Isovue-300 VOLUME: 100 mL One or more dose reduction techniques were used (e.g., Automated exposure control, adjustment of the mA and/or kV according to patient size, use of iterative reconstruction technique. RADIATION DOSE SUMMARY: CTDlvol: 10 mGy DLP: 382.59 mGycm COMPARISON: None FINDINGS: Lung bases: Mild dependent atelectasis. Bilateral breast implants. Liver: Normal size. No mass. Gallbladder: Surgically absent. Spleen: Normal size. Pancreas: Normal size without evidence of mass surrounding inflammation or ductal dilation. Adrenals: Unremarkable Kidneys: Normal renal sizes. No hydronephrosis. Bladder: Unremarkable Reproductive Organs: Prior hysterectomy. Adnexal regions are unremarkable. Bowel: Colonic diverticulosis without diverticulitis. Appendix: The appendix is not identified. There is no inflammatory process identified in the right lower quadrant to suggest appendicitis. Lymph nodes: Unremarkable. Vasculature: Mild diffuse atherosclerotic calcifications are noted. Peritoneum / Retroperitoneum: Unremarkable Bones: Degenerative changes of the spine. CT/Abdomen/Pelvis W IV Cont ONLY IMPRESSION: Status post cholecystectomy and hysterectomy. Sigmoid diverticulosis with no radiographic evidence of diverticulitis. Reading Location: [place] [id number]
[2024-12-08 15:27] LABS: Bacteria 0 SEEN /hpf (None Seen); Mucous, Urine 0 SEEN /hpf (<or=2+)
[2024-12-08 15:35] LABS: Color, Urine Yellow (Yellow); Glucose, Dipstick Normal (Normal); Leukocyte Esterase-Dipstick Negative /ul (Negative); Nitrite-Dipstick Negative (Negative); Occult Blood-Urine Negative /ul (Negative); Protein-Dipstick 30 mg/dl (Negative); Urine Bilirubin Dipstick Negative (Negative); Urine Clarity Sl. Cloudy (Clear); Urine Urobilinogen Normal (Normal)
[2024-12-08 15:45] LABS: Ketone-Dipstick 150 mg/dl (Negative)
[2024-12-08 15:56] VITALS: PULSE 81; RESP 16; O2SAT 94
[2024-12-08 15:57] LABS: Red Blood Cells-Urine 0-5 SEEN /hpf (0-5); Squamous Epithelial Cells - UA 0-5 SEEN /hpf (5-10)
[2024-12-08 15:58] LABS: White Blood Cells 0-5 SEEN /hpf (0-5)
[2024-12-08] MEDS: Morphine 4 MG/ML Syringe IV (16:40)
[2024-12-08 16:51] VITALS: PULSE 68; RESP 15; O2SAT 97
[2024-12-08 17:50] VITALS: BP 127/75
[2024-12-08 18:10] VITALS: BP 127/75; PULSE 75; RESP 15; TEMP 36.7; O2SAT 97
== END 2024-12-08 18:33 | disposition home or self-care (01) ==
PROVIDERS: Emergency Provider Emergency Medicine; PCP Family Medicine; Referring Provider Emergency Medicine; Visit Provider Emergency Medicine
DX: R10.32 Left lower quadrant pain (principal); R11.2 Nausea with vomiting, unspecified; Z90.49 Acquired absence of other specified parts of digestive tract
CPT/HCPCS: 74177; 80053; 81001; 83690; 85025; 87631; 96361; 96374; 96375; 99283; Q9967; A4216; J2405

== ENCOUNTER 2025-02-25 14:52 | Emergency (ER) | payer OTHER, SELFPAY ==
[2025-02-25 14:52] VITALS: BP 127/65; PULSE 105; RESP 22; TEMP 37.2; O2SAT 95
[2025-02-25 15:13] LABS: Absolute Lymphocyte Count 2.06 X10^3/uL (0.83-4.51); Absolute Neutrophil Count 5.2 X10^3/uL (2.0-7.7); Basophil# 0.05 X10^3/uL; Basophil% 0.6 % (0-1); Eosinophil# 0.07 X10^3/uL; Eosinophils% 0.9 % (0-5); Hemoglobin 14.8 g/dL (12.0-15.0); Lymphocyte # 2.06 X10^3/ul (0.83-4.51); Lymphocyte % 26.2 % (19-41); Mean Corp Hgb Conc 34.4 g/dL (32-36); Mean Corpuscular Hgb 29.5 pg (27.0-32.0); Mean Corpuscular Volume 85.8 fL (81-99); Mean Platelet Vol. 9.8 fl (6.2-12.0); Monocyte# 0.51 X10^3/uL; Monocyte% 6.5 % (0-10); NRBC Flagged by Analyzer 0 % (0-5); Neutrophil # 5.15 X10^3/uL (2.7-7.7); Neutrophil % 65.4 % (47-70); Platelet Count 296 K/mm3 (150-450); RBC Distribution Width CV 13.2 % (11.6-14.6); RBC Distribution Width SD 41.1 fl (35.1-43.9); Red Blood Count 5.01 M/mm3 (4.2-5.4); White Blood Count 7.9 K/mm3 (4.4-11.0)
[2025-02-25 15:49] LABS: ALB/GLOB Ratio 1.6 RATIO (0.9-2.4); AST(SGOT) 26 U/L (<=31); Alanine Aminotransfer ALT/SGPT 18 U/L (<=34); Alkaline Phosphatase 75 U/L (35-104); Anion Gap 18 (5-15); BUN 18 mg/dL (4-19); BUN/Creat Ratio 20.2 RATIO (10-20); Calcium,Total 10.1 mg/dL (7.6-11.0); Carbon Dioxide 20.1 mmol/L (21.0-32.0); Chloride 105 mmol/L (98-108); EST Glomerular Filtration Rate 71 (>60); Glucose 81 mg/dL (70-99); Lipase 33 U/L (13-75); Potassium 3.8 mmol/L (3.3-5.1); Sodium Level 142 mmol/L (133-145); Total Bilirubin 0.68 mg/dL (0.00-1.30)
--- NOTE | 2025-02-25 16:03 | CT_ITS ---
PROCEDURE: ABDOMEN/PELVIS W IV CONT ONLY 02/25/2025 REASON FOR EXAM: LOWER ABD PAIN TECHNIQUE: ABDOMEN/PELVIS W IV CONT ONLY. Coronal and Sagittal reconstruction series were provided. CONTRAST: Isovue 370 VOLUME: 100 mL One or more dose reduction techniques were used (e.g., Automated exposure control, adjustment of the mA and/or kV according to patient size, use of iterative reconstruction technique. RADIATION DOSE SUMMARY: CTDlvol: 20 mGy DLP: 520 mGycm COMPARISON: CT abdomen pelvis 12/08/2024. FINDINGS: Lung bases: Tiny right lower lobe pulmonary nodule (series 2, image 4). Bibasilar atelectasis. The heart is normal in size. Liver: The liver is normal in size without suspicious hepatic mass. The major portal veins are patent. Mild biliary ductal dilation secondary to cholecystectomy. Gallbladder: Surgically absent. Spleen: Unremarkable. Pancreas: Unremarkable. Adrenals: No adrenal mass. Kidneys: No hydronephrosis or nephrolithiasis. Bladder: Decompressed. Reproductive Organs: Prior hysterectomy. Bowel: The bowel loops are nondilated. No ascites or pneumoperitoneum. Normal appendix. Mild distal colonic diverticulosis. Lymph nodes: No suspicious lymph node enlargement. Vasculature: Moderate mixed plaque of the aortoiliac vessels. Bones: Thoracolumbar spondylosis with unchanged grade 1 anterolisthesis of T12 onto L1. Subtle osteochondral lucencies of the left femoral head, compatible with early avascular necrosis. CT/Abdomen/Pelvis W IV Cont ONLY IMPRESSION: 1. No acute abdominopelvic finding. 2. Tiny sub 5 mm right lower lobe pulmonary nodule, likely noncalcified granulo ma or scarring. If patient has a history of smoking, consider follow-up chest CT in 12 months to evaluate for stability/res olution. 3. 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 Reading Location: [id number]
--- OUTSIDE RECORDS SUMMARY | 2025-02-25 16:09 | XMS RPT_ITS | CCD ---
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 Name Role Phone AZEM, MAY Unavailable Unavailable AZEM, MAY Unavailable Unavailable Franck Murphy Unavailable Unavailable AZEM, MAY Unavailable Unavailable AZEM, MAY Unavailable Unavailable Franck Murphy Unavailable Unavailable Laura Robertson MD Primary Care Provider Ehp, Accordant Unavailable Unavailable Laura Robertson MD Primary Care Provider Laura Robertson MD Primary Care Provider Laura Robertson MD Primary Care Provider Ehp, Accordant Unavailable Unavailable Ehp, Accordant Unavailable Unavailable Laura Robertson MD Primary Care Provider Sissen PSS, Tanner Unavailable Unavailable Jadyn Smith RN Unavailable Unavailable Douglas Robin Primary Care Provider Unavaila rickey Ng CISCO CONSULTANT.Anayeli FRANCIS Unavailable Nathaniel Vasquez MD Unavailable [phone] Lizzie CISCO CONSULTANT.Salinas FRANCIS Unavailable Nat GARDINER, Margaux Unavailable Sissen PSS, Tanner Unavailable Unavailable Nathaniel Vasquez MD Unavailable Nathaniel Vasquez MD Unavailable Nat GARDINER, Margaux Unavailable Salty Alvarez MD Unavailable Unavailable PROVIDER, UNKNOWN Admitting Unavailable PROVIDER, UNKNOWN Attending Unavailable LAURA ROBERTSON Primary Care Unavailable PROVIDER, UNKNOWN Consulting Unavailable DEXTER ALMANZA Admitting Unavailable DEXTER ALMANZA Attending Unavailable ELDERBROCK, LAURA D Primary Care Unavailable PROVIDER, UNKNOWN Referring Unavailable ELDERBROCK, LAURA D Primary Care Unavailable PROVIDER, UNKNOWN Referring Unavailable ELDERBROCK, LAURA D Primary Care Unavailable PROVIDER, UNKNOWN Referring Unavailable ELDERBROCK, LAURA D Primary Care Unavailable ELDERBROCK, LAURA D Primary Care Unavailable PROVIDER, UNKNOWN Referring Unavailable PROVIDER, UNKNOWN Referring Unavailable ELDERBROCK, LAURA D Primary Care Unavailable PROVIDER, UNKNOWN Admitting Unavailable PROVIDER, UNKNOWN Attending Unavailable ELDERBROCK, LAURA D Primary Care Unavailable PROVIDER, UNKNOWN Consulting Unavailable Nat PT, Margaux Unavailable [phone] Ailyn PERKINS, Dr. Ricks Primary Care Provider Brandon FERNANDO, Dr. Sanchez Attending Provider Brandon DO, Dr. Sanchez Emergency Provider Lyubov FERNANDO, Dr. Tabor Referring Provider Lyubov DO, Dr. Tabor Emergency Provider Elderbrock, Laura Primary Care Unavailable Saúl Segovia Attending Unavailable Daniel Taylor Attending Unavailable Elderbrock, Laura Primary Care Unavailable Leander Mcarthur Attending Unavailable Leander Mcarthur Referring Unavailable Elderbrock, Laura Primary Care Unavailable Zarina CISCO CONSULTANT.Anayeli FRANCIS Unavailable Unavail able Anayeli Ng APRN.CNP Unavailable ALBERTO MATIAS Referring Unavaila ble ELDERBROCK, LAURA D Primary Care Unavailable NATHANIEL VASQUEZ Referring Unavail able ELDERBROCK, LAURA D Primary Care Unavailable JOSEP WISE Attending Unavailable NATHANIEL VASQUEZ Referring Unavail able ELDERBROCK, LAURA D Primary Care Unavailable NATHANIEL VASQUEZ Referring Unavail able ELDERBROCK, LAURA D Primary Care Unavailable NATHANIEL VASQUEZ Referring Unavail able ELDERBROCK, LAURA D Primary Care Unavailable JOSEP WISE Attending Unavailable NATHANIEL VASQUEZ Referring Unavail able ELDERBROCK, LAURA D Primary Care Unavailable SCARCENATHANIEL WINCHESTER Referring Unavail able ELDERBROCK, LAURA D Primary Care Unavailable SCARCENATHANIEL WINCHESTER Referring Unavail able ELDERBROCK, LAURA D Primary Care Unavailable ELDERBROCK, LAURA D Primary Care Unavailable ANAYELI NG Attending Unavailable ELDERBROCK, LAURA D Primary Care Unavailable MARION, ALBERTO NATHANAEL Attending Unavaila ble ELDERBROCK, LAURA D Primary Care Unavailable ELDERBROCK, LAURA D Primary Care Unavailable KEYSHA SAAVEDRA Attending Unavailable BABAR NGLEY Referring Unavailable ELDERBROCK, LAURA D Primary Care Unavailable MALINDA LINDO Attending Unavailable ELDERBROCK, LAURA D Primary Care Unavailable ELDERBROCK, LAURA D Attending Unavailable ELDERBROCK, LAURA D Primary Care Unavailable ELDERBROCK, LAURA D Primary Care Unavailable ELDERBROCK, LAUAR D Primary Care Unavailable REGOTTI, NYDIA Attending Unavailable ELDERBROCK, LAURA D Primary Care Unavailable SALINAS SAMUEL Attending Unavailable ELDERBROCK, LAURA D Primary Care Unavailable SERGEI SPEAR Attending Unavailable REGOTTI, NYDIA Referring Unavailable ELDERBROCK, LAURA D Primary Care Unavailable SERGEI SPEAR Attending Unavailable REGOTTI, NYDIA Referring Unavailable ELDERBROCK, LAURA D Primary Care Unavailable REGOTTI, NYDIA Referring Unavailable ELDERBROCK, LAURA D Primary Care Unavailable SERGEI SPEAR Attending Unavailable REGOTTI, NYDIA Referring Unavailable ELDERBROCK, LAURA D Primary Care Unavailable JOSEP WISE Attending Unavailable NATHANIEL VASQUEZ Referring Unavail able ELDERBROCK, LAURA D Primary Care Unavailable REGTONII, NYDIA Attending Unavailable ELDERBROCK, LAURA D Primary Care Unavailable NATHANIEL VASQUEZ Attending Unavail able ELDERBROCK, LAURA D Primary Care Unavailable ELDERBROCK, LAURA D Attending Unavailable ELDERBROCK, LAURA D Primary Care Unavailable MICHELLE SIMPSON Attending Unavailable KENNETH ALONZO Referring Unavailable ELDERBROCK, LAURA D Primary Care Unavailable MICHELLE SIMPSON Referring Unavailable ELDERBROCK, LAURA D Primary Care Unavailable NATHANIEL VASQUEZ Referring Unavail able ELDERBROCK, LAURA D Primary Care Unavailable BABAR NGLEY Referring Unavailable ELDERBROCK, LAURA D Primary Care Unavailable NATHANIEL VASQUEZ Referring Unavail able ELDERBROCK, LAURA D Primary Care Unavailable ELDERBROCK, LAURA D Attending Unavailable ELDERBROCK, LAURA D Primary Care Unavailable ZARINA ANAYELI Referring Unavailable ELDERBROCK, LAURA D Primary Care Unavailable BENDSHELLEYM, ALBERTO NATHANAEL Referring Unavaila ble ELDERBROCK, LAURA D Primary Care Unavailable KACY OLIVAS Referring Unavailable ELDERBROCK, LAURA D Primary Care Unavailable NATHANIEL VASQUEZ Attending Unavail able ELDERLAURA TROY Primary Care Unavailable SAHRA SAMUELE Referring Unavailable ELDERLAURA TROY Primary Care Unavailable DEXTER ALMANZA Attending Unavailable LIZZIE, SALINAS Referring Unavailable ELDERBROCK, LAURA D Primary Care Unavailable CARLIDAPHNE Attending Unavailable ELDERJINNYCK, LAURA Escalante Primary Care Unavailable CAMIDEXTER MARROQUIN P Referring Unavailable ELDERJINNYCK, LAURA D Primary Care Unavailable ELDERLAURA TROY Attending Unavailable LAURA ROBERTSON Primary Care Unavailable NATHANIEL VASQUEZ Attending Unavail able ELDERWOODROW, LAURA D Primary Care Unavailable BENDARAM, ALBERTO HUFFMAN Attending Unavaila ble BENDARAM, ALBERTO HUFFMAN Referring Unavaila ble ELDERWOODROW, LAURA D Primary Care Unavailable Allergies Allergy Classification Reported Allergen(s) Allergy Type Date of Onset Reaction(s) Facility 6-Aminocaproic Acid (2 sources) 6-Aminocaproic Acid Drug Allergy 5 [facility] adalimumab (2 sources) adalimumab Drug Allergy 6 [facility] Albuterol (2 sources) Albuterol Drug Allergy 9 Other: See Comments [facility] Work Phone: benzonatate (2 sources) benzonatate Drug Allergy 9 Other: See Comments [facility] Corticosteroids (2 sources) fluticasone Drug Allergy 0 [facility] Methotrexate (2 sources) Methotrexate Drug [facility] 6-aminocaproic acid; Translations: [AMINOCAPROIC ACID] Drug Allergy 5 [facility] Repository (20 sources) adalimumab; Translations: [ADALIMUMAB] Drug Allergy 6 [facility] Repository (20 sources) methotrexate; Translations: [METHOTREXATE] Drug Allergy 3 [facility] Repository (20 sources) Albuterol; Translations: [ALBUTEROL] Drug Allergy 9 Other: See Comments [facility] Work Phone: (20 sources) benzonatate; Translations: [BENZONATATE] Drug Allergy 9 Other: See Start: 03-28-2024 End: 03-28-2024 ambulatory 03/28/2024 2:00 PM EDT OT/PT/Speech Visit [facility] [address] [place] [address] Sergei Spear, PT [address] [place] [address] Bilateral primary osteoarthritis of knee [M17.0] [facility] Comment on above: Bilateral primary osteoarthritis of knee [M17.0] Start: 03-22-2024 End: 03-22-2024 ambulatory 03/22/2024 3:30 PM EDT OT/PT/Speech Visit [facility] [address] [place] [address] Miesha Birmingham, PEN TESTER [address] [place] [address] Bilateral primary osteoarthritis of knee [M17.0] [facility] Comment on above: Bilateral primary osteoarthritis of knee [M17.0] Start: 03-16-2024 End: 03-16-2024 ambulatory 03/16/2024 6:00 PM EDT OT/PT/Speech Visit [facility] [address] [place] [address] Miesha Birmingham, PEN TESTER [address] [place] [address] Bilateral primary osteoarthritis of knee [M17.0] [facility] Comment on above: Bilateral primary osteoarthritis of knee [M17.0] Start: 03-14-2024 End: 03-14-2024 Patient encounter procedure 03/14/2024 3:30 PM EDT Office Visit Orthopaedics [address] [address] Nydia Wade PA-C [address] [place] [address] mri results Orthopaedics Comment on above: mri results Start: 03-11-2024 End: 03-11-2024 ambulatory 03/11/2024 1:30 PM EDT OT/PT/Speech Visit [place] [facility] [address] [place] [address] Sergei Spear, PT [address] [place] [address] Chronic pain of left knee [M25.562, G89.29] [place] [facility] Comment on above: Chronic pain of left knee [M25.562, G89. 29] Start: 03-07-2024 End: 03-07-2024 Patient encounter procedure 03/07/2024 11:20 AM EDT Appointment Radiology [address] [place] [address] Chronic pain of left knee [M25.562, G89.29] Radiology Comment on above: Chronic pain of left knee [M25.562, G89. 29] Start: 03-06-2024 ANNUAL PCP TEAM CHRONIC DISEASE VISIT ANNUAL PCP TEAM CHRONIC DISEASE VISIT [facility] Start: 03-04-2024 SERUM CREATININE SERUM CREATININE [facility] Start: 02-17-2024 ANNUAL PCP TEAM CHRONIC DISEASE VISIT ANNUAL PCP TEAM CHRONIC DISEASE VISIT [facility] Start: 02-11-2024 End: 02-11-2024 Patient encounter procedure 02/11/2024 3:30 PM EDT Office Visit Orthopaedics [address] [address] Nydia Wade PA-C [address] [place] [address] Bilateral knee pain Orthopaedics Comment on above: Bilateral knee pain Start: 02-04-2024 End: 02-04-2024 ambulatory Hematology/Oncology Comment on above: 4 Hour Treatment D-Rituximab(Rituxan) Start: 01-21-2024 End: 01-21-2024 ambulatory Hematology/Oncology Comment on above: 6 Hour Treatment D-Rituximab(Rituxan) D-Ruxience Start: 01-14-2024 End: 01-14-2024 Patient encounter procedure 01/14/2024 4:20 PM EDT Office Visit [facility] [place] [address] [place] [address] Laura Robertson MD [address] [place] [address] 3 month follow up [facility] [place] Comment on above: 3 month follow up [facility] Start: 12-04-2023 ANNUAL PCP TEAM CHRONIC DISEASE VISIT ANNUAL PCP TEAM CHRONIC DISEASE VISIT [facility] Start: 11-09-2023 SERUM CREATININE SERUM CREATININE [facility] Start: 09-11-2023 End: 08-13-2024 Vertebral fracture assessment via dxa DXA - VFA ASSESS ONLY Radiology Routine Osteopenia of multiple sites Expected: 09/11/2023, Expires: 08/13/2024 [facility] Work Phone: Comment on above: Expected: 09/11/2023, Expires: Start: 09-07-2023 Behavioral Health Screening Behavioral Health Screening [facility] Start: 09-07-2023 Depression Assessment Depression Assessment [facility] Start: 07-15-2023 End: 07-15-2024 25-hydroxyvitamin D3 [Mass/volume] in Serum or Plasma VITAMIN D 25 HYDROXY Lab Routine Osteopenia of multiple sites Expected: 07/15/2023, Expires: 07/15/2024 [facility] Work Phone: Comment on above: Expected: 07/15/2023, Expires: 4 Start: 07-15-2023 End: 07-15-2024 Calcium [Mass/volume] in Serum or Plasma CALCIUM TOTAL BLD Lab Routine Osteopenia of multiple sites Expected: 07/15/2023, Expires: 07/15/2024 [facility] Work Phone: Comment on above: Expected: 07/15/2023, Expires: Start: 07-15-2023 End: 07-15-2024 CREATININE BLD CREATININE BLD Lab Routine Osteopenia of multiple sites Expected: 07/15/2023, Expires: 07/15/2024 [facility] Work Phone: Comment on above: Expected: 07/15/2023, Expires: Start: 06-11-2023 SERUM CREATININE SERUM CREATININE [facility] Start: 05-08-2023 Influenza vaccination [facility] Start: 02-06-2023 SERUM CREATININE SERUM CREATININE [facility] Start: 01-15-2023 End: 03-17-2023 IgG [Mass/volume] in Serum or Plasma IGG Lab Routine Seropositive rheumatoid arthritis (HCC) Expected: 01/15/2023, Expires: 03/17/2023 [facility] Work Phone: Comment on above: Expected: 01/15/2023, Expires: Start: 11-07-2022 End: 11-07-2023 Alanine aminotransferase [Enzymatic activity/volume] in Serum or Plasma ALT/SGPT Lab Routine Seropositive rheumatoid arthritis (HCC) Encounter for long-term (current) use of medications Expected: 11/07/2022 (Approximate), Expires: 11/07/2023 [facility] Work Phone: Comment on above: Expected: 11/07/2022 (Approximate), Expi res: 11/07/2023 Start: 11-07-2022 End: 11-07-2023 Albumin [Mass/volume] in Serum or Plasma ALBUMIN BLD Lab Routine Seropositive rheumatoid arthritis (HCC) Encounter for long-term (current) use of medications Expected: 11/07/2022 (Approximate), Expires: 11/07/2023 [facility] Work Phone: Comment on above: Expected: 11/07/2022 (Approximate), Expi res: 11/07/2023 Start: 11-07-2022 End: 11-07-2023 Aspartate aminotransferase [Enzymatic activity/volume] in Serum or Plasma AST/SGOT BLD Lab Routine Seropositive rheumatoid arthritis (HCC) Encounter for long-term (current) use of medications Expected: 11/07/2022 (Approximate), Expires: 11/07/2023 [facility] Work Phone: Comment on above: Expected: 11/07/2022 (Approximate), Expi res: 11/07/2023 Start: 11-07-2022 End: 11-07-2023 C reactive protein [Mass/volume] in Serum or Plasma C-REACTIVE PROTEIN (CRP) Lab Routine Seropositive rheumatoid arthritis (HCC) Encounter for long-term (current) use of medications Expected: 11/07/2022 (Approximate), Expires: 11/07/2023 [facility] Work Phone: Comment on above: Expected: 11/07/2022 (Approximate), Expi res: 11/07/2023 Start: 11-07-2022 End: 11-07-2023 CBC W Auto Differential panel - Blood CBC + DIFF Lab Routine Seropositive rheumatoid arthritis (HCC) Encounter for long-term (current) use of medications Expected: 11/07/2022 (Approximate), Expires: 11/07/2023 [facility] Work Phone: Comment on above: Expected: 11/07/2022 (Approximate), Expi res: 11/07/2023 Start: 11-07-2022 End: 01-07-2023 Chronic hepatitis differentiation between hepatitis B and C virus panel - Serum or Plasma HEP REMOTE PANEL BL Lab Routine Seropositive rheumatoid arthritis (HCC) Encounter for long-term (current) use of medications Expected: 11/07/2022 (Approximate), Expires: 01/07/2023 [facility] Work Phone: Comment on above: Expected: 11/07/2022 (Approximate), Expi res: 01/07/2023 Start: 11-07-2022 End: 11-07-2023 CREATININE BLD CREATININE BLD Lab Routine Seropositive rheumatoid arthritis (HCC) Encounter for long-term (current) use of medications Expected: 11/07/2022 (Approximate), Expires: 11/07/2023 [facility] Work Phone: Comment on above: Expected: 11/07/2022 (Approximate), Expi res: 11/07/2023 Start: 11-07-2022 End: 11-07-2023 Erythrocyte sedimentation rate SED RATE WESTERGREN Lab Routine Seropositive rheumatoid arthritis (HCC) Encounter for long-term (current) use of medications Expected: 11/07/2022 (Approximate), Expires: 11/07/2023 [facility] Work Phone: Comment on above: Expected: 11/07/2022 (Approximate), Expi res: 11/07/2023 Start: 11-07-2022 End: 01-07-2023 IgA [Mass/volume] in Serum or Plasma IGA BLD Lab Routine Seropositive rheumatoid arthritis (HCC) Encounter for long-term (current) use of medications Expected: 11/07/2022 (Approximate), Expires: 01/07/2023 [facility] Work Phone: Comment on above: Expected: 11/07/2022 (Approximate), Expi res: 01/07/2023 Start: 11-07-2022 End: 01-07-2023 IgG [Mass/volume] in Serum or Plasma IGG Lab Routine Seropositive rheumatoid arthritis (HCC) Encounter for long-term (current) use of medications Expected: 11/07/2022 (Approximate), Expires: 01/07/2023 [facility] Work Phone: Comment on above: Expected: 11/07/2022 (Approximate), Expi res: 01/07/2023 Start: 11-07-2022 End: 01-07-2023 IgM [Mass/volume] in Serum or Plasma IGM Lab Routine Seropositive rheumatoid arthritis (HCC) Encounter for long-term (current) use of medications Expected: 11/07/2022 (Approximate), Expires: 01/07/2023 [facility] Work Phone: Comment on above: Expected: 11/07/2022 (Approximate), Expi res: 01/07/2023 Start: 11-01-2022 ANNUAL PCP TEAM CHRONIC DISEASE VISIT ANNUAL PCP TEAM CHRONIC DISEASE VISIT [facility] Start: 10-16-2022 End: 10-30-2022 Influenza virus A and B RNA and SARS-CoV-2 (COVID-19) N gene panel - Respiratory specimen by KARYN with probe detection COVID WITH FLUA+B, ROUTINE Microbiology Routine URI, acute Expected: 10/16/2022, Expires: 10/30/2022 [facility] Work Phone: Comment on above: Expected: 10/16/2022, Expires: 3 Start: 09-16-2022 SERUM CREATININE SERUM CREATININE [facility] Start: 09-07-2022 DEPRESSION ASSESSMENT DEPRESSION ASSESSMENT [facility] Start: 05-08-2022 Influenza vaccination [facility] Start: 04-09-2022 HIV SCREENING HIV SCREENING [facility] Comment on above: Postponed from 1978 (Declined at t his time) Start: 03-07-2022 End: 05-07-2022 VITAMIN D 25 HYDROXY VITAMIN D 25 HYDROXY Lab Routine Vitamin D deficiency Expected: 03/07/2022 (Approximate), Expires: 05/07/2022 [facility] Work Phone: Comment on above: Expected: 03/07/2022 (Approximate), Expi res: 05/07/2022 Start: 02-06-2022 End: 04-08-2022 VITAMIN D 25 HYDROXY [facility] Work Phone: Comment on above: Expected: 02/06/2022 (Approximate), Expi res: 04/08/2022 Start: 12-25-2021 Adult depression screening assessment DEPRESSION SCREENING [facility] Start: 12-17-2021 Mammography [facility] Start: 12-17-2021 Screening for malignant neoplasm of breast Mammogram Screening [facility] Start: 09-07-2021 DEPRESSION ASSESSMENT DEPRESSION ASSESSMENT [facility] Start: 05-08-2021 Influenza vaccination INFLUENZA (#1) [facility] Start: 09-07-2020 Colonoscopy COLONOSCOPY [facility] Start: 09-07-2020 COLORECTAL CANCER SCREENING COLORECTAL CANCER SCREENING [facility] Start: 09-07-2020 Screening for malignant neoplasm of colon [facility] Start: 2020 RSV Vaccine (1 - 1-dose 60+ series) RSV Vaccine (1 - 1-dose 60+ series) [facility] Start: 2020 RSV Vaccine (1 - Risk 60-74 years 1-dose series) RSV Vaccine (1 - Risk 60-74 years 1-dose series) [facility] Start: 08-09-2012 PNEUMOCOCCAL (2 - PCV) PNEUMOCOCCAL (2 - PCV) [facility] Start: 08-09-2012 Pneumococcal vaccination [facility] Start: 08-09-2012 Pneumococcal Vaccine: 50+ (2 of 2 - PCV) Pneumococcal Vaccine: 50+ (2 of 2 - PCV) [facility] Start: 2010 SHINGRIX VACCINE (1 of 2) SHINGRIX VACCINE (1 of 2) [facility] Start: 2005 COLOGUARD (FIT-DNA) COLOGUARD (FIT-DNA) [facility] Start: [address] COLONOGRAPHY [facility] Start: 2005 FECAL OCCULT BLOOD FECAL OCCULT BLOOD [facility] Start: 2005 Screening for malignant neoplasm of colon [facility] Start: 2005 SIGMOIDOSCOPY SIGMOIDOSCOPY [facility] Start: 1979 SHINGRIX VACCINE (1 of 2) SHINGRIX VACCINE (1 of 2) [facility] Start: 1978 Anxiety Screening Anxiety Screening [facility] Start: 1978 Depression Screening Depression Screening [facility] Start: 1978 HIV SCREENING HIV SCREENING [facility] Start: 1978 HIV screening HIV Screening [facility] Start: 1972 COVID-19 VACCINE (1) COVID-19 VACCINE (1) [facility] Start: 1965 COVID-19 VACCINE (#1) COVID-19 VACCINE (#1) [facility] Start: 01-31-1961 COVID-19 VACCINE (#1) COVID-19 VACCINE (#1) [facility] Arthrp kne condyle&p latu medial&lat compartments ROBOTIC ASSISTED TOTAL KNEE ARTHROPLASTY Primary osteoarthritis of both knees ME OR Cardiovascular funct ion eval w/tilt table w/mntr TILT TABLE EVALUATION Cardiology Routine Orthostatic dizziness Ordered: 10/12/2024 [facility] Comment on above: Ordered: 10/12/2024 End: 11-04-2025 CT Knee - left WO contrast CT KNEE WO IVCON LEFT Radiology Routine Primary osteoarthritis of left knee Preoperative examination 1 Occurrences starting 10/05/2024 until 11/04/2025 [facility] Work Phone: Comment on above: 1 Occurrences starting 10/05/2024 until 11/04/2025 CT Knee - left WO contrast CT KNEE WO IVCON LEFT Radiology Routine Primary osteoarthritis of left knee Preoperative examination 10/22/2024 1:25 PM EST [facility] Work Phone: CT Knee - right WO contrast CT KNEE WO IVCON RIGHT Radiology Routine Primary osteoarthritis of both knees Rheumatoid arthritis involving both knees, unspecified whether rheumatoid factor present (HCC) Preop examination 07/29/2024 3:37 PM EST [facility] Work Phone: End: 01-17-2023 Ct thorax w/o contrast material CT CHEST WO IVCON Radiology Routine Interstitial pulmonary disease (HCC) 1 Occurrences starting 12/18/2021 until 01/17/2023 [facility] Work Phone: Comment on above: 1 Occurrences starting 12/18/2021 until 01/17/2023 Ct thorax w/o contra st material CT CHEST WO IVCON Radiology Routine Interstitial pulmonary disease (HCC) 12/31/2021 3:46 PM EDT [facility] Work Phone: End: 12-15-2025 DBT Breast - bilateral screening NORBERT SCREENING W ABY Radiology Routine Encounter for screening mammogram for breast cancer 1 Occurrences starting 11/15/2024 until 12/15/2025 [facility] Work Phone: Comment on above: 1 Occurrences starting 11/15/2024 until 12/15/2025 End: 01-14-2025 MG Breast Screening NORBERT SCREENING Radiology Routine Encounter for screening mammogram for breast cancer 1 Occurrences starting 12/16/2023 until 01/14/2025 [facility] [place] Work Phone: Comment on above: 1 Occurrences starting 12/16/2023 until 01/14/2025 End: 06-25-2025 MR Brain WO and W contrast IV MRI BRAIN WO/W IVCON Radiology STAT Syncope, unspecified syncope type 1 Occurrences starting 05/26/2024 until 06/25/2025 [facility] Comment on above: 1 Occurrences starting 05/26/2024 until 06/25/2025 End: 03-12-2025 MR Knee - left WO contrast MRI KNEE WO IVCON LEFT Radiology Routine Chronic pain of left knee 1 Occurrences starting 02/11/2024 until 03/12/2025 [facility] [place] Work Phone: Comment on above: 1 Occurrences starting 02/11/2024 until 03/12/2025 [facility] Patient referral [facility] [place] Work Phone: End: 03-06-2024 PVR ANK PRESS VIVIEN VAS LAB PVR ANK PRESS VIVIEN VAS LAB Vascular Lab Routine Left leg swelling 1 Occurrences starting 03/06/2023 until 03/06/2024 [facility] [place] Work Phone: Comment on above: 1 Occurrences starting 03/06/2023 until 03/06/2024 End: 12-07-2023 Radex spine cervical 4 or 5 views XR CERV OTHER 4V AP/LAT/OBL Radiology Routine Other osteoarthritis of spine, cervical region 1 Occurrences starting 11/07/2022 until 12/07/2023 [facility] [place] Work Phone: Comment on above: 1 Occurrences starting 11/07/2022 until 12/07/2023 End: 12-07-2023 Radex spine thoracic 3 views XR THORACIC GENERAL 3V AP/LAT/SWIMMERS Radiology Routine Other osteoarthritis of spine, cervical region Upper back pain 1 Occurrences starting 11/07/2022 until 12/07/2023 [facility] [place] Work Phone: Comment on above: 1 Occurrences starting 11/07/2022 until 12/07/2023 End: 02-21-2023 Screening mammography bi 2-view breast inc cad NORBERT SCREENING Radiology Routine Encounter for screening mammogram for breast cancer 1 Occurrences starting 01/22/2022 until 02/21/2023 [facility] [place] Work Phone: Comment on above: 1 Occurrences starting 01/22/2022 until 02/21/2023 SPIROMETRY WITH DILA TOR IF OBSTRUCTED SPIROMETRY WITH DILATOR IF OBSTRUCTED PFT Routine ILD (interstitial lung disease) (HCC) 12/18/2021 1:01 PM EDT [facility] [place] Work Phone: Thyrotropin [Units/volume] in Serum or Plasma THYROID STIMULATING HORMONE Lab Routine Hypothyroidism, acquired 05/26/2024 8:45 AM EDT [facility] Thyroxine (T4) free [Mass/volume] in Serum or Plasma T4 FREE/FREE THYROXINE Lab Routine Hypothyroidism, acquired 05/26/2024 8:45 AM EDT [facility] End: 10-30-2025 US Abdomen RUQ US ABD RIGHT UPPER QUADRANT Radiology Routine Calculus of gallbladder without cholecystitis without obstruction Upper abdominal pain 1 Occurrences starting 09/30/2024 until 10/30/2025 [facility] [place] Work Phone: Comment on above: 1 Occurrences starting 09/30/2024 until 10/30/2025 End: 04-02-2024 US DVT LOWER BILATERAL US DVT LOWER BILATERAL Radiology STAT Leg swelling 1 Occurrences starting 03/04/2023 until 04/02/2024 [facility] [place] Work Phone: Comment on above: 1 Occurrences starting 03/04/2023 until 04/02/2024 End: 09-09-2025 US Head and Neck US CERVICAL LYMPH NODE MAPPING Radiology Routine Thyroid cancer (HCC) 1 Occurrences starting 08/09/2024 until 09/09/2025 [facility] Comment on above: 1 Occurrences starting 08/09/2024 until 09/09/2025 End: 04-04-2024 US VENOUS REFLUX BILATERAL US VENOUS REFLUX BILATERAL Radiology Routine Left leg swelling 1 Occurrences starting 03/06/2023 until 04/04/2024 [facility] [place] Work Phone: Comment on above: 1 Occurrences starting 03/06/2023 until 04/04/2024 End: 10-25-2023 XR FOOT GENERAL 3V AP/LAT/OBL LEFT XR FOOT GENERAL 3V AP/LAT/OBL LEFT Radiology Routine Foot sprain, left, initial encounter 1 Occurrences starting 09/25/2022 until 10/25/2023 [facility] [place] Work Phone: Comment on above: 1 Occurrences starting 09/25/2022 until 10/25/2023 XR FOOT GENERAL 3V AP/LAT/OBL LEFT XR FOOT GENERAL 3V AP/LAT/OBL LEFT Radiology Routine Foot sprain, left, initial encounter 09/25/2022 3:06 PM EST [facility] [place] Work Phone: End: 10-31-2023 XR FOOT GENERAL 3V AP/LAT/OBL LEFT XR FOOT GENERAL 3V AP/LAT/OBL LEFT Radiology Routine Closed nondisplaced fracture of distal phalanx of left great toe with routine healing, subsequent encounter 1 Occurrences starting 10/01/2022 until 10/31/2023 [facility] [place] Work Phone: Comment on above: 1 Occurrences starting 10/01/2022 until 10/31/2023 End: 09-28-2025 XR Knee AP and Lateral and Merchants XR KNEE POST OP 3V AP/LAT/MERCHANT RIGHT Radiology Routine S/P total knee arthroplasty, right 1 Occurrences starting 08/29/2024 until 09/28/2025 [facility] [place] Work Phone: Comment on above: 1 Occurrences starting 08/29/2024 until 09/28/2025 XR Knee AP and Later al and Merchants XR KNEE POST OP 3V AP/LAT/MERCHANT RIGHT Radiology Routine S/P total knee arthroplasty, right 09/08/2024 1:25 PM EST [facility] [place] Work Phone: XR Knee AP and Later al and Merchants XR KNEE POST OP 3V AP/LAT/MERCHANT LEFT Radiology Routine Status post left knee replacement 11/24/2024 9:42 AM EDT [facility] [place] Work Phone: [facility] Immunizations Immunization Date Immunization Notes Care Provider Patricia morales 05-14-2018 influenza, injectabl e, quadrivalent, contains preservative [place] Samuel APRN.CNP Work Phone: [facility] 05-14-2018 influenza virus vacc ine, unspecified formulation Kenneth Alonzo MD Work Phone: [facility] 08-17-2017 influenza, injectabl e, quadrivalent, contains preservative Salinas Lizzie CISCO CONSULTANT.[facility] Work Phone: [facility] 08-18-2016 influenza, injectabl e, quadrivalent, contains preservative Salinas Lizzie CISCO CONSULTANT.BUILDING MAINTENANCE SUPERVISOR Work Phone: [facility] 12-31-2014 tetanus toxoid, redu aditi diphtheria toxoid, and acellular pertussis vaccine, adsorbed Salinas Samuel CISCO CONSULTANT.BUILDING MAINTENANCE SUPERVISOR Work Phone: [facility] Work Phone: 07-08-2012 influenza virus vacc ine, unspecified formulation Salinas Samuel CISCO CONSULTANT.BUILDING MAINTENANCE SUPERVISOR Work Phone: [facility] 08-09-2011 pneumococcal polysaccharide vaccine, 23 valent Salinas Samuel APRN.[facility] Work Phone: [facility] 12-02-2005 tetanus and diphther ia toxoids, adsorbed, preservative free, for adult use (2 Lf of tetanus toxoid and 2 Lf of diphtheria toxoid) Salinas Samuel APRN.[facility] Work Phone: [facility] Payers Date Payer Category Payer Private Health Insurance [id number] 2024 Self-pay [id number] 2021 Private Health Insurance EHP AET NA EHP STAFF/NON STAFF / EHP [facility] [id number] 2021-Present [address] [place] [id number] EPO [id number] 2021 Unknown [id number] 2015 Private Health Insurance [id number] 2015 Unknown [id number] 2012 Unknown [id number] Unknown [id number] Unknown [id number] Unknown [id number] Social History Date Type Detail Facility Start: 05-28-2016 End: 08-09-2024 Tobacco smoking status NHIS Never smoked tobacco [facility] Start: 11-27-2021 End: 10-13-2024 Alcohol intake Current non-drinker of alcohol (finding) [facility] Start: 10-25-2021 History SDOH Alcohol Frequency 98 [facility] Start: 05-28-2016 History SDOH Alcohol Comment rare ; deo. wine [facility] Start: 10-25-2021 End: 12-03-2022 History SDOH Housing Unable to Pay 3 [facility] Start: 1960 Sex Assigned At Not on file [facility] Start: 07-14-2020 End: 08-08-2022 Exposure to SARS-CoV-2 (event) Not sure [facility] Start: 05-28-2016 End: 08-09-2024 Tobacco use and exposure Smokeless tobacco non-user [facility] Work Phone: Start: 08-09-2022 Tobacco smoking stat us MIIS Unknown if ever smoked [facility] Work Phone: Start: 1960 Sex Assigned At Female [facility] Start: 12-03-2022 History SDOH Physica l Activity DPW 4 [facility] Start: 12-03-2022 History SDOH Physica l Activity MPS 2 [facility] Start: 12-03-2022 End: 01-15-2023 History of Social function [facility] Start: 12-03-2022 End: 01-15-2023 Social connection and isolation panel [facility] In a typical week, h ow many times do you talk on the telephone with family, friends, or neighbors? Patient refused [facility] Are you now , , , , never or living with a partner? Refused [facility] Do you feel stress - tense, restless, nervous, or anxious, or unable to sleep at night because your mind is troubled all the time - these days [OSQ] Rather much [facility] (I/We) worried wheth er (my/our) food would run out before (I/we) got money to buy more. DK or Refused [facility] Start: 08-22-2014 Alcoholic beverage intake Current drinker of alcohol (finding) [facility] Has the [employer], or water [employer] threatened to shut off services in your home in past 12Mo No [facility] (I/We) worried wheth er (my/our) food would run out before (I/we) got money to buy more. Never true [facility] Start: 11-02-2024 End: 01-23-2025 Alcoholic beverage intake Ex-drinker (finding) [facility] Start: 12-08-2024 Sex Female (finding) [facility] Are you now , , , , never or living with a partner? [facility] How often to you hav e a drink containing alcohol? Never [facility] Do you feel stress - tense, restless, nervous, or anxious, or unable to sleep at night because your mind is troubled all the time - these days [OSQ] Not at all [facility] NEGATED: Highlighted rowStart: DEVAUGHN History of tobacco use Passive smoker [facility] Medical Equipment Procedure Code Equipment Code Equipment Origin al Text Equipment Identifier Dates Roj-Ro-F-Kind Implant - [id number] Start: 02-09-2014 Comment on above: Description: Smooth round moderated plus profile saline breast implant with diaphragm valve filled with 300cc saline Uhx-Ll-H-Kind Implant - [id number] Start: 02-09-2014 Comment on above: Description: [place] Smooth Round Moderate Plus Profile Saline Breast Implant with Diaphragm Valve filled with 300 cc saline Cement Simplex P Bone Radiopaque Full Dose Sterile - [id number] Start: 12-17-2024 Cement Simplex P Bone Radiopaque Full Dose Sterile - [id number] Start: 08-23-2024 Component Triathlon 5 Femoral Cruciate Retain Cemented Knee Right - [id number] Start: 08-23-2024 Insert Triathlon 5 9mm Tibial Bearing Condylar Stabilize Sterile Knee - [id number] Start: 08-23-2024 Component Triathlon 35mm 10mm Patellar Asymmetric Knee - [id number] Start: 08-23-2024 Baseplate Triathlon 5 Tibial Primary Cement Knee - [id number] Start: 08-23-2024 Component Triathlon 4 Pa Femoral Cruciate Retain Bead Knee Left - [id number] Start: 11-10-2024 Insert Triathlon 4 10mm Tibial Bearing Condylar Stabilize Sterile Knee - [id number] Start: 11-10-2024 Component Tritanium 35mm Metal 10mm Patellar Asymmetric Knee - [id number] Start: 11-10-2024 Baseplate Triathalon 4 Tritanium Tibial Coated Sterile Knee - [id number] Start: 11-10-2024 Goals Date Patient Goal Desired Activity /State Personal health goal Functional Status Date Assessment Result Facility 01-23-2025 Total score [AUDIT-C] 0 01/24/20 8:20 AM EDT Love [facility] 01-23-2025 How often to you hav e a drink containing alcohol? Never 01/23/2025 8:20 AM EDT [facility] Never [facility] 01-23-2025 Functional status Patient does n ot drink 01/23/2025 8:20 AM EDT [employer] Patient does not drink [facility] 01-23-2025 How often do you hav e 6 or more drinks on 1 occasion? Never 01/23/2025 8:20 AM EDT [facility] Never [facility] 11-13-2024 Are you deaf, or do you have serious difficulty hearing No 11/13/2024 9:44 AM EDT Terry Montaño RN No [facility] 03-09-2025 Are you blind, or do you have serious difficulty seeing, even when wearing glasses No 11/13/2024 9:44 AM Terry Hameed RN No [facility] 11-13-2024 Do you have serious difficulty walking or climbing stairs No 11/13/2024 9:44 AM Terry Hameed RN No [facility] 11-13-2024 Do you have difficul ty dressing or bathing No 11/13/2024 9:44 AM Terry Hameed RN No [facility] 11-13-2024 Because of a physica l, mental, or emotional condition, do you have difficulty doing errands alone such as visiting a physician's office or shopping No 11/13/2024 9:44 AM Terry Hameed RN No [facility] 08-24-2024 Are you deaf, or do you have serious difficulty hearing No 08/24/2024 6:14 PM Terry Rea RN No [facility] 08-24-2024 Are you blind, or do you have serious difficulty seeing, even when wearing glasses No 08/24/2024 6:14 PM Terry Rea RN No [facility] 08-24-2024 Do you have serious difficulty walking or climbing stairs No 08/24/2024 6:14 PM Terry Rea RN No [facility] 08-24-2024 Do you have difficul ty dressing or bathing No 08/24/2024 6:14 PM Terry Rea RN No [facility] 08-24-2024 Because of a physica l, mental, or emotional condition, do you have difficulty doing errands alone such as visiting a physician's office or shopping No 08/24/2024 6:14 PM Terry Rea RN No [facility] Mental Status Date Assessment Result Facility 11-13-2024 Because of a physica l, mental, or emotional condition, do you have serious difficulty concentrating, remembering, or making decisions No 11/13/2024 9:44 AM Terry Hameed RN No [facility] 09-23-2024 Cognitive function Level Of Cons ciousness Awake;Alert;Appropriate;Fol lows Commands [facility] Work Phone: 08-24-2024 Because of a physica l, mental, or emotional condition, do you have serious difficulty concentrating, remembering, or making decisions No 08/24/2024 6:14 PM Terry Rea, RN No [facility] 08-09-2022 Cognitive function Level Of Cons ciousness Awake;Alert;Appropriate;Fol lows Commands [facility] Work Phone: Clinical Notes 08-22-2014 to 01-31-2025 Josep Wise, PT - 01/31/2025 2:48 PM Josep Bender, PT - 01/31/2025 2:19 PM Laura Brown MD - 01/23/2025 1:00 PM Josep Bender, PT - 01/10/2025 1:23 PM EDTPatient Instructions Note Date & Type Note Facility 01-31-2025 History of Presen t illness Narrative Program_ID:[id number] Access Code: [email or web address] URL: [email or web address] Date: 01-31-2025 Prepared By: Miesha Birmingham Program Notes Exercises - Supine Heel Slide with Strap - 2-3 x daily - 7 x weekly - 2 sets - 15 reps - Step Up - 2-3 x daily - 7 x weekly - 2 sets - 10-15 reps - Lateral Step Up - 2-3 x daily - 7 x weekly - 2 sets - 10-15 reps - Supine Active Straight Leg Raise - 2-3 x daily - 7 x weekly - 2 sets - 8-12 reps - Standing Hip Abduction with Counter Support - 2-3 x daily - 7 x weekly - 2 sets - 10-12 reps - Standing Knee Flexion AROM with Chair Support - 2-3 x daily - 7 x weekly - 2 sets - 10-15 reps - Knee Flexion Step - 2-3 x daily - 7 x weekly - 2 sets - 10-15 reps - Supine Knee Flexion Wall Slide - 2-3 x daily - 7 x weekly - 2 sets - 10 reps - Seated Knee Flexion Extension AROM - 2-3 x daily - 7 x weekly - 2 sets - 10-15 reps Images from the original note were not included. Episode Visit Count: 8 Therapist That Will Accept/Oversee The Plan Of Care: Josep Wise PT. Start of Care Date: 11/02/24 Onset Date: 11/02/22 (Worsening the last two years per patient.) Plan of Care Certification Date: (N/A) Next Certification Due Date: (N/A) Patient Identified by Name and Date of : Yes [facility]AB[facility]ER[facility]Y PHYSICAL THERAPY PROGRESS REPORT PLAN OF CARE UPDATE: Assessment: Mariam Minaya demonstrates improvements in endorsing improved physical activities at home as well as gait, strength and ROM. The patient has progressed toward goals. Patient continues to present with impairments in ADL's, gait, independence in exercise, overall function, range of motion, strength, symptom management, and tissue tenderness that interfere with sleeping ((Rising from a chair after prolonged sitting)) . Current prognosis is Good due to: current objective clinical presentation, Prognosis may be limited due to limited compliance with previous therapy (Limited Appointment & POC Recommendation Compliance) . The patient will benefit from continued skilled therapy services to meet the updated goals for this plan of care as noted below. Updated 01/31/25. Goals Added:12/01/24. Burke in home exercise program. (Goal Met) Patient will decrease pain rating by 2 points to meet minimal clinical important difference for numeric pain rating scale. (Goal Met) Increase ROM of L Knee to 2-0-120 degrees for increased functional mobility. (Progressing Towards) Increased strength of L LE to 5/5 MMT for improved ADL/IADLs. (Progressing Towards) Normal gait without deficits, unassisted. (Progressing Towards) Reciprocal stair negotiation without upper extremity assist (Progressing Towards) Time Frame for Goals and Treatment : 02/28/25 Planned Interventions, Frequency, and Duration: 1 visit (1 Visit in 2 weeks; patient wanting to complete PT on her own and checkup soon.), 1 visit Total Number of Visits Planned: 1 Patient to be seen for Therapeutic exercise (64676), Neuromuscular re-education (12536), Manual therapy (67579), Therapeutic activities (60213), Self-fci management (90919), Patient/Family/Caregiver Education, Body Mechanics Training, Gait Training (13353) PLAN FOR NEXT VISIT: Check Up and MI in 2 Weeks. SUBJECTIVE: Patient reports still really sore; however felt very confident following last session and the gait training completed. Pain today following sitting prolonged time and getting up, feels stiff. Having less pain than prior to surgery. Can take walks and do physical activities more. Still having trouble sleeping at night on side. States pushing it more at home now, feels like she was babying it. Functional Limitations: sleeping ((Rising from a chair after prolonged sitting)) Pain: Pain Pain Level: 2 Pain Location: Knee - Left PROMIS Scales 01/23/2025 12/22/2024 11/25/2024 Higher is Better Phys Func - T Score 41 (mild dysfunction) 38 (moderate dysfunction) Phys Func - Percentile 18 12 Self-Eff Symptom - T Score 56 (Average) 48 (Average) 47 (Average) Self-Eff Symptom - Percentile 73 42 38 05/16/2024 07/14/2023 02/10/2023 Lower is Better Pain Interference - T Score 62 (moderate) 74 (severe) 74 (severe) Pain Interference - Percentile 12 1 1 T-scores: mean of general population = 50. 5 points is clinically meaningfully difference Percentiles provide an indication of how the patient's score ranks in relation to the general population. Higher percentile rankings indicate better function/quality of life. 50th percentile is the average of the general population and indicates half of respondents had a worse score. OBJECTIVE MEASURES WITH LEVEL OF FUNCTION: LE AROM R Knee Flexion: 108 Degrees (108 AAROM Strap.) L Knee Extension: 0 Degrees L Knee Flexion: 114 Degrees (AAROM.) LE Strength R LE Strength: Grossly 4+/5 L LE Strength: L SLR: x15 with minimal quad lag after 5 reps. Grossly 4+/5 Gait Gait Observation: Slight noticable limp and waddle. Stairs: Reciprocal; light single UE use. TREATMENT: Therapeutic Exercise: 1: Sci-Fit: 6 Min, seat # 11, resistance level 1. (1:1 throughout. Pt provided update on condition.) 2: *Re-assessment; assessed patients current condition and her progress; discussed stopping formal PT vs. continuing based on current status. 3: *Goals Assessed and discussed. 4: *HEP was reviewed and the patient was instructed to continue with HEP to tolerance. 5: Upright Stationary Bike Rockers 2.5 min and full revs 2.5min: Seat 11. Used for knee rom. 6: *Reconciled and discussed HEP; educated on this. See below, 7: Exercises - Supine Heel Slide with Strap - 2-3 x daily - 7 x weekly - 2 sets - 15 reps - 1-sec hold - Step Up - 2-3 x daily - 7 x weekly - 2 sets - 10-15 reps - Lateral Step Up - 2-3 x daily - 7 x weekly - 2 sets - 10-15 reps - Supine Active Straight Leg Raise - 2-3 x daily - 7 x weekly - 2 sets - 8-12 reps - Standing Hip Abduction with Counter Support - 2-3 x daily - 7 x weekly - 2 sets - 10-12 reps - Standing Knee Flexion AROM with Chair Support - 2-3 x daily - 7 x weekly - 2 sets - 10-15 reps - Knee Flexion Step - 2-3 x daily - 7 x weekly - 2 sets - 10-15 reps - 3-5 sec hold - Supine Knee Flexion Wall Slide - 2-3 x daily - 7 x weekly - 2 sets - 10 reps - 3-5 sec hold - Seated Knee Flexion Extension AROM - 2-3 x daily - 7 x weekly - 2 sets - 10-15 reps - 5-sec hold 8: *Discussed the importance of HEP and appt adherence. Skilled Intervention: Patient was educated in proper exercise technique and purpose for exercises. Reviewed and educated patient on additions/changes for home exercise program as above (*). Skilled judgment was used in selection of appropriate interventions. Provided written instruction for home exercise program to facilitate proper performance and compliance. Correct performance of therapeutic exercises was facilitated with verbal, visual, and tactile cuing. Patient education as noted. Billing Therapeutic Exercise Treatment Minutes: 38 Skilled Treatment Time Minutes (timed and untimed codes): 38 Total Session Time (minutes): 38 Session Start Time : 1418 Session Stop Time : 1456 Josep Wise PT documented in this encounter [facility] 01-31-2025 Note [facility] 01-24-2025 Note [facility] 01-23-2025 History of Presen t illness Narrative Chief Complaint Patient presents with: F/U 3 Month HPI Mariam Minaya is a 64 year old female who presents here today for a 3 month follow up. Had TKR L on 11/10/24. Still in PT, still some swelling at times. Pt currently taking Qysmia 15-92 mg once daily for weight loss. Weight at last OV was 144 lbs. Did go off medication due to surgeries, restarted the medication about a month ago. She was on prednisone as well. Tries to watch her diet, doing PT exercises and trying to stay active despite having TKR. Does some walking, that is about all she can tolerate at this time due to swelling. Tries to watch diet, declined much of an appetite. Feels that she is doing well on the medication and that it is helpful. Past medical history, appointments, medications, allergies reviewed. Previous Medical History PAST MEDICAL HISTORY Diagnosis Date Astigmatism, regular 12/22/2015 Chronic bilateral low back pain with sciatica 12/10/2015 Chronic kidney insufficiency, stage 3 (moderate) (HCC) 04/06/2018 Encounter for gynecological examination 05/03/2019 [facility] 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 RA (rheumatoid arthritis) (HCC) + RF, +CCP OVERLAP PsA (+NAIL disease, dactylitis, axial inflammatory sx) Sjogren's syndrome (HCC) Neg SSA SSB in January 2009 Thyroid cancer (HCC) 09/07/[address] Maldonado removed, radioactive iodine ablation. papillary Vitamin D deficiency Previous Surgical History PAST SURGICAL HISTORY Procedure Laterality Date BREAST AUGMENTATION W/PROSTHETIC IMPLANT 2000 bilateral implants BX BREAST PERC NEED W/GUID 10/29/2011 U/S needle core left axillary LN COLONOSCOPY FLX DX W/COLLJ SPEC WHEN PFRMD 09/07/2010 Colonoscopy, repeat 10 yrs EGD TRANSORAL BIOPSY SINGLE/MULTIPLE 11/06/2006 Hiatal hernia, gastritis, retained food ESOPHAGOGASTRODUODENOSCOPY TRANSORAL DIAGNOSTIC EGD ESOPHAGOGASTRODUODENOSCOPY TRANSORAL DIAGNOSTIC 03/15/2015 EGD FNA (FINE NEEDLE ASPIRATION) 10/15/2006 U/S FNA right thyroid nodule FNA WITH IMAGING 09/22/2011 U/S FNA left axillary mass KNEE ARTHROSCOPY Left 2009 LIG/TRNSXJ FLP TUBE ABDL/VAG APPR UNI/BI Tubal ligation NEUROPLASTY &/TRANSPOS MEDIAN NRV CARPAL TUNNE Left 05/30/2016 Carpal tunnel decomp NEUROPLASTY &/TRANSPOS MEDIAN NRV CARPAL TUNNE Right 09/26/2016 Carpal tunnel decomp PAST SURGICAL HISTORY OF 2010 removal of implants & replace & pannilectomy REMOVAL GALLBLADDER 10/26/2024 SYNOVECTOMY EACH 1999 left wrist THYROIDECTOMY TOTAL/COMPLETE 11/10/2006 TONSILLECTOMY & ADENOIDECTOMY <AGE 12 Tonsillectomy TOTAL KNEE REPLACEMENT Right 08/2024 VAGINAL HYSTERECTOMY UTERUS 250 GM/< 2003 Hysterectomy, vaginal Family History FAMILY HISTORY Problem Relation Age of Onset None Mother Cancer Father Breast Cancer Sister Thyroid Sister cancer s/p thyroidectomy Diabetes Brother from type I dx/d age 9 Diabetes Grandchild Type I age 8 Anesthesia Problems No Family History Patient Allergies ALLERGIES Allergen Reactions Humira [Adalimumab] Hives welt at injection site Tessalon [Benzonata* Other: See Comments hypersensitive Albuterol Other: See Comments severe leg cramps Amicar [Aminocaproi* Rash Flovent [Fluticason* Rash Methotrexate Contraindication-Medical Surgical elevated liver enz Current Medications Current Outpatient Medications on File Prior to Visit Medication Sig levothyroxine (SYNTHROID) 100 mcg tablet Take 1 tablet by mouth once daily. Take on empty stomach. For thyroid hydrOXYchloroQUINE (PLAQUENIL) 200 mg tablet Take 1 and a half tablets by mouth once daily. pantoprazole DR (PROTONIX) 40 mg tablet Take 1 tablet by mouth daily at 6 am. acetaminophen (TYLENOL) 500 mg tablet Take 2 tablets by mouth every 8 hours as needed for pain. ascorbic acid, vitamin C, (VITAMIN C) 500 mg tablet Take 1 tablet by mouth two times a day with meals for 14 days. gabapentin (NEURONTIN) 600 mg tablet Take 1 tablet by mouth three times a day for 180 days. gabapentin (NEURONTIN) 300 mg capsule Take 1 capsule by mouth three times a day for 90 days. Take with 600 mg of Gabapentin phentermine-topiramate ER (QSYMIA) 15-92 mg 24 Hr Capsule Take 1 capsule by mouth once daily Fluorouracil (EFUDEX) 5 % cream Apply twice daily to affected areas on face for 2-4 weeks as tolerated. (Patient taking differently: Apply 1 application to affected area once daily. Apply twice daily to affected areas on face for 2-4 weeks as tolerated.) Biotin 1 mg tab Take 1 tablet by mouth once daily. amoxicillin (AMOXIL) 500 mg capsule Take 2 capsules three times a day, starting one day prior dental appointments/procedures and on the day of the dental procedure (two days for 6 doses total) Cholecalciferol, Vitamin D3, 50 mcg (2,000 unit) cap Take 1 capsule by mouth twice daily. vitamin b complex tab Take 1 tablet by mouth once daily. No current facility-administered medications on file prior to visit. Social History Social History Tobacco Use Smoking status: Never Passive exposure: Never Smokeless tobacco: Never Vaping Use Vaping status: Never Used Substance Use Topics Alcohol use: Not Currently Comment: rare ; deo. wine Drug use: Not Currently Types: Marijuana EXAM: BP 120/70 Pulse 74 Resp 16 Wt 66.1 kg (145 lb 11.6 oz) BMI 23.52 kg/m General Appearance: Well appearing, alert, in no acute distress, well-hydrated, well nourished.. Lungs: Lungs clear to auscultation. No wheezing, rhonchi, rales.. Heart: RRR without murmur, gallop, or rubs. No ectopy. Health Maintenance List Shingrix Vaccine(1 of 2) Never done Pneumococcal Vaccine: 50+(2 of 2 - PCV) due on 08/09/2012 RSV Vaccine(1 - Risk 60-74 years 1-dose series) Never done Colorectal Cancer Screening due on 09/07/2020 Mammogram Screening due on 12/17/2021 Lipid Screening due on 05/03/2024 DTaP,Tdap,Td Vaccine(2 - Td or Tdap) due on 12/31/2024 HIV Screening due on 11/03/2025 Influenza Vaccine(Season Ended) due on 05/08/2025 Depression Screening due on 05/26/2025 Anxiety Screening due on 05/26/2025 Annual PCP Team Chronic Disease Visit due on 11/03/2025 Serum Creatinine due on 11/11/2025 Diabetes Screening due on 11/12/2027 Hepatitis C Screening Completed Cervical Cancer Screening Discontinued Covid-19 Vaccine Discontinued Data reviewed Weight graph ASSESSMENT/PLAN: 1. Overweight (BMI 25.0-29.9) - ICD9: 278.02, ICD10: E66.3 Stable Continue current medications. - QSYMIA 15 MG-92 MG CAPSULE, EXTENDED RELEASE I agree with the Chief Complaint, ROS, and Past Histories independently gathered by the clinical administrative support assistant and the remaining scribed note accurately describes my personal service to the patient. Medical Decision Making: Problems: Low: Stable chronic illness Risk: Moderate: Drug management Medical Decision Making Level: 3 - Low Laura Robertson MD The documentation for this note was completed by Rae Sheth MA acting as scribe for Laura Robertson MD. January 23, 2025 12:49 PM. Rae Sheth MA documented in this encounter [facility] 01-23-2025 Note [facility] 01-10-2025 Note [facility] 01-10-2025 History of Presen t illness Narrative Episode Visit Count: 6 Therapist That Will Accept/Oversee The Plan Of Care: Josep Wise, PT. Start of Care Date: 11/02/24 Onset Date: 11/02/22 (Worsening the last two years per patient.) Plan of Care Certification Date: (N/A) Next Certification Due Date: (N/A) Patient Identified by Name and Date of : Yes REHABILITATION AND SPORTS THERAPY PHYSICAL THERAPY TREATMENT NOTE ASSESSMENT: Mariam Minaya tolerated the session with fatigue and expected muscle soreness. She demonstrated improvements in tolerance to standing exercises. The patient will continue to benefit from ongoing skilled physical therapy to progress toward set goals. PLAN FOR NEXT VISIT: Continue with LLE strengthening and stabilization in standing. SUBJECTIVE: Pt reports that she does not thinkg her knee is not as swollens as it was since the massge last visit. Pain: Pain Pain Level: 3 Pain Location: Knee - Left Post Treatment Pain Post Treatment Pain Level: No Change OBJECTIVE MEASURES WITH LEVEL OF FUNCTION: LE AROM L Knee Flexion: 114 Degrees (AAROM with strap after standing exercises) TREATMENT: Therapeutic Exercise: 1: Sci-Fit: 5 Min, seat # 11, resistance level 1. (1:1 throughout. Pt provided update on condition.) 2: L step ups on 6 inch step 2x10 3: Lateral step ups on 6 inch step 2x10 LLE 4: Step downs on 4 inch step 2x10 LLE 5: *Standing HS curls 2x10 6: *Squats at // bars 2x10 7: Heel slides AAROM 2x10 Skilled Intervention: Patient was educated in proper exercise technique and purpose for exercises. Reviewed and educated patient on additions/changes for home exercise program as above (*). Skilled judgment was used in selection of appropriate interventions. Correct performance of therapeutic exercises was facilitated with verbal and visual cuing. Billing Therapeutic Exercise Treatment Minutes: 38 Skilled Treatment Time Minutes (timed and untimed codes): 38 Total Session Time (minutes): 38 Session Start Time : 1320 Session Stop Time : 1358 Miesha [place], DEBBIE Wise, PT, DPT. documented in this encounter [facility] 01-06-2025 Instructions Alberto Matias MD - 01/06/2025 2:46 PM EDT Reduce the dose of levothyroxine 100 mcg daily Repeat labs in 2 months after this dose change Labs ordered documented in this encounter [facility] 01-06-2025 Note [facility] 01-06-2025 History of Presen t illness Narrative [facility] Follow up note Consulted by: self referral Chief Complaint: thyroid cancer HPI: This is a 64 year old female who presents for follow up on thyroid cancer. She was seen Dr. Prajapati in the past, but has transferred care to different endocrinologists at [facility]. She was last seen by Dr. Hernández in 03/2020 via virtual visit. Initial visit with me was on 08/09/24 Per chart documentation: She had thyroid cancer that was found in 2003 when she was found to have a calcified nodule that was aspirated and she was found to have papillary cancer. There were no other foci of cancer. She recalls that the nodules were very small. She had total thyroidectomy done by Dr. Jesus Laws Per Dr. Prajapati`s note from 08/22/14, the patient had Thyroid micro CA , papillary/follicular variant, treated with GAMING because of concerns at that time for using TNF alpha agents (Humira, then Etanercept) in a patient with thyroid CA. Switched to Tirosint 150 mcg in January 2017 then switched to synthroid She had surgery in 2006, and GAMING specifically in 02/2007 GAMING dose was 100 mCi Current regimen: Levothyroxine 112 mcg daily, changed from previous dose of 125 mcg daily She reports feeling fatigued. On vitamin D supplements already PAST MEDICAL HISTORY: PAST MEDICAL HISTORY Diagnosis Date Astigmatism, regular 12/22/2015 Chronic bilateral low back pain with sciatica 12/10/2015 Chronic kidney insufficiency, stage 3 (moderate) (HCC) 04/06/2018 Encounter for gynecological examination 05/03/2019 [facility]. 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 RA (rheumatoid arthritis) (HCC) + RF, +CCP OVERLAP PsA (+NAIL disease, dactylitis, axial inflammatory sx) Sjogren's syndrome (HCC) Neg SSA SSB in January 2009 Thyroid cancer (HCC) 09/07/[address] Maldonado removed, radioactive iodine ablation. papillary Vitamin D deficiency PAST SURGICAL HISTORY: PAST SURGICAL HISTORY Procedure Laterality Date BREAST AUGMENTATION W/PROSTHETIC IMPLANT 2000 bilateral implants BX BREAST PERC NEED W/GUID 10/29/2011 U/S needle core left axillary LN COLONOSCOPY FLX DX W/COLLJ SPEC WHEN PFRMD 09/07/2010 Colonoscopy, repeat 10 yrs EGD TRANSORAL BIOPSY SINGLE/MULTIPLE 11/06/2006 Hiatal hernia, gastritis, retained food ESOPHAGOGASTRODUODENOSCOPY TRANSORAL DIAGNOSTIC EGD ESOPHAGOGASTRODUODENOSCOPY TRANSORAL DIAGNOSTIC 03/15/2015 EGD FNA (FINE NEEDLE ASPIRATION) 10/15/2006 U/S FNA right thyroid nodule FNA WITH IMAGING 09/22/2011 U/S FNA left axillary mass KNEE ARTHROSCOPY Left 2009 LIG/TRNSXJ FLP TUBE ABDL/VAG APPR UNI/BI Tubal ligation NEUROPLASTY &/TRANSPOS MEDIAN NRV CARPAL TUNNE Left 05/30/2016 Carpal tunnel decomp NEUROPLASTY &/TRANSPOS MEDIAN NRV CARPAL TUNNE Right 09/26/2016 Carpal tunnel decomp PAST SURGICAL HISTORY OF 2010 removal of implants & replace & pannilectomy REMOVAL GALLBLADDER 10/26/2024 SYNOVECTOMY EACH 1999 left wrist THYROIDECTOMY TOTAL/COMPLETE 11/10/2006 TONSILLECTOMY & ADENOIDECTOMY <AGE 12 Tonsillectomy TOTAL KNEE REPLACEMENT Right 08/2024 VAGINAL HYSTERECTOMY UTERUS 250 GM/< 2003 Hysterectomy, vaginal FAMILY HISTORY: FAMILY HISTORY Problem Relation Age of Onset None Mother Cancer Father Breast Cancer Sister Thyroid Sister cancer s/p thyroidectomy Diabetes Brother from type I dx/d age 9 Diabetes Grandchild Type I age 8 Anesthesia Problems No Family History SOCIAL HISTORY: Social History Tobacco Use Smoking status: Never Passive exposure: Never Smokeless tobacco: Never Vaping Use Vaping status: Never Used Substance Use Topics Alcohol use: Not Currently Comment: rare ; deo. wine Drug use: Not Currently Types: Marijuana MEDICATIONS: Current Outpatient Medications Medication Sig predniSONE (DELTASONE) 2.5 mg tablet Take 1 tablet by mouth two times a day for 10 days. hydrOXYchloroQUINE (PLAQUENIL) 200 mg tablet Take 1 and a half tablets by mouth once daily. pantoprazole DR (PROTONIX) 40 mg tablet Take 1 tablet by mouth daily at 6 am. acetaminophen (TYLENOL) 500 mg tablet Take 2 tablets by mouth every 8 hours as needed for pain. ascorbic acid, vitamin C, (VITAMIN C) 500 mg tablet Take 1 tablet by mouth two times a day with meals for 14 days. gabapentin (NEURONTIN) 600 mg tablet Take 1 tablet by mouth three times a day for 180 days. gabapentin (NEURONTIN) 300 mg capsule Take 1 capsule by mouth three times a day for 90 days. Take with 600 mg of Gabapentin phentermine-topiramate ER (QSYMIA) 15-92 mg 24 Hr Capsule Take 1 capsule by mouth once daily Fluorouracil (EFUDEX) 5 % cream Apply twice daily to affected areas on face for 2-4 weeks as tolerated. (Patient taking differently: Apply 1 application to affected area once daily. Apply twice daily to affected areas on face for 2-4 weeks as tolerated.) Biotin 1 mg tab Take 1 tablet by mouth once daily. amoxicillin (AMOXIL) 500 mg capsule Take 2 capsules three times a day, starting one day prior dental appointments/procedures and on the day of the dental procedure (two days for 6 doses total) levothyroxine (SYNTHROID) 112 mcg tablet Take 1 tablet by mouth once daily. Take on empty stomach. For thyroid Cholecalciferol, Vitamin D3, 50 mcg (2,000 unit) cap Take 1 capsule by mouth twice daily. vitamin b complex tab Take 1 tablet by mouth once daily. No current facility-administered medications for this visit. ALLERGIES: ALLERGIES Allergen Reactions Humira [Adalimumab] Hives welt at injection site Tessalon [Benzonata* Other: See Comments hypersensitive Albuterol Other: See Comments severe leg cramps Amicar [Aminocaproi* Rash Flovent [Fluticason* Rash Methotrexate Contraindication-Medical Surgical elevated liver enz REVIEW OF SYSTEMS: GENERAL: No weight loss, malaise or fevers HEENT: Negative for frequent or significant headaches, No changes in hearing or vision, no nose bleeds or other nasal problems NECK: Negative for lumps, goiter, pain and significant neck swelling RESPIRATORY: Negative for cough, hemoptysis, wheezing, COPD, dyspnea or shortness of breath CARDIOVASCULAR: Negative for chest pain, leg swelling, hypertension, CHF or palpitations GI: No nausea, vomiting, or diarrhea MUSCULOSKELETAL: Negative for joint pain or swelling, back pain or muscle pain SKIN: Negative for lesions, rash, and itching ENDOCRINE: Negative for cold or heat intolerance, polyuria, polydipsia and goiter NEURO: No history of headaches, syncope, paralysis, seizures or tremors All other reviewed and negative other than HPI. PHYSICAL EXAM: BP 126/72 (BP Site: Right Arm, BP Position: Sitting, BP Cuff Size: Regular Adult) Pulse 60 Temp 36.8 C (98.3 F) (Temporal Artery) Resp 12 Wt 67.7 kg (149 lb 3.2 oz) SpO2 96% BMI 24.08 kg/m Body mass index is 24.08 kg/m . General Appearance: Well appearing, alert, in no acute distress, well-hydrated, well nourished, thin built. She had difficulty getting up from chair and walking Skin: Skin color, texture, turgor normal, no suspicious rashes or lesions. Eyes: Anicteric sclera. Extraocular movements are intact. Neck: lower neck/upper chest transverse scar from thyroidectomy, well healed, no keloids Lungs: unlabored on room air Heart: Regular rate and rhythm Extremities: No deformities, edema, skin discoloration, clubbing or cyanosis. No tremors Musculoskeletal: No joint swelling, deformity, or tenderness. Peripheral Pulses: Normal. Neurologic: Gait normal. Reflexes are diminished B/L LABS: Latest Reference Range & Units 01/03/03 12:10 01/11/04 10:41 06/20/05 12:19 09/08/06 16:33 11/20/06 09:40 02/04/07 11:36 03/03/07 11:16 03/24/07 07:43 08/12/07 08:36 09/02/07 16:55 09/24/07 07:42 09/24/07 07:43 03/20/08 16:13 06/16/08 08:24 04/25/09 07:43 11/13/09 07:36 12/02/10 10:18 12/10/10 07:30 01/24/11 12:33 07/25/11 07:46 01/29/12 07:39 11/11/12 10:31 06/17/13 09:22 07/29/13 10:00 09/20/13 08:42 01/03/14 07:49 05/25/14 10:10 06/30/14 17:20 08/16/14 19:36 10/03/14 13:48 12/27/14 10:41 02/20/15 09:26 11/08/15 12:08 10/10/16 18:55 01/05/17 12:23 10/26/17 12:33 05/03/18 15:46 04/25/19 14:43 08/29/19 13:54 04/09/20 14:13 04/09/21 17:00 09/16/21 16:08 08/06/23 09:15 05/26/24 08:45 Free T4 0.9 - 1.7 ng/dL 1.3 1.2 1.2 1.0 1.4 1.6 1.0 0.5 (L) 1.1 1.3 2.2 (H) 1.8 (H) 1.8 (H) 1.9 (H) TSH 0.270 - 4.200 mIU/L 1.430 1.520 0.114 (L) 5.700 (H) 15.620 (H) 0.028 (L) 0.042 (L) 0.078 (L) 0.266 (L) 2.570 11.360 (H) 33.360 (H) 0.055 (L) 0.595 1.970 17.500 (H) 0.005 (L) 0.015 (L) 0.018 (L) 0.666 0.071 (L) T3 79 - 165 ng/dL 99 Thyroglobulin Ab <14.4 IU/mL 2.0 1.9 1.2 TSH, Terrance 0.400 - 5.500 uIU/mL 1.78 2.06 1.15 2.26 13.92 (H) 77.57 (HH) 42.43 (HH) 1.82 1.25 0.44 (L) 0.11 (L) 0.24 (L) 0.14 (L) 11.490 (H) 6.320 (H) 0.044 (L) 3.430 Thyroglobulin 1.6 - 59.9 ng/mL 0.5 (L) <0.2 (L) <0.2 (L) <0.2 (L) <0.2 (L) <0.2 (L) <0.2 (L) <0.2 (L) <0.2 (L) <0.2 (L) <0.2 (L) <0.2 (L) <0.2 (L) <0.2 (L) 0.4 (L) <0.2 (L) <0.2 (L) <0.2 (L) (HH): Data is critically high (L): Data is abnormally low (H): Data is abnormally high Latest Ref Rng 09/30/2024 10/14/2024 Thyroglobulin Ab, Serum <4.0 IU/mL <0.9 Thyroglobulin, Serum 1.6 - 50.0 ng/mL <0.1 (L) TSH 0.270 - 4.200 mIU/L 0.853 0.716 Legend: (L) Low Imaging: US thyroid/parathyroid 05/26/2018: CERVICAL LYMPH NODE MAPPING ULTRASOUND 05/26/2018 CLINICAL [...] THYROIDECTOMY BED. MULTIPLE SUBCENTIMETER BENIGN-APPEARING LYMPH NODES. US cervical LN mappin10/03/2019: CLINICAL HISTORY: Post thyroidectomy, papillary thyroid cancer. Follow-up surveillance. COMPARISON: Ultrasound 05/26/2018. TECHNIQUE: Sonography of the cervical lymph node stations was performed bilaterally. Images were obtained and stored in a permanent archive. RESULT: Post total thyroidectomy. No suspicious lesions at the thyroidectomy bed. Right neck: - Level I: No abnormal [...] : No abnormal lymph nodes. IMPRESSION: NO SUSPICIOUS LESIONS AT THE THYROIDECTOMY BED. NO CERVICAL CHAIN LYMPHADENOPATHY. ULTRASOUND CERVICAL LYMPH NODE MAPPING 01/02/25 CLINICAL HISTORY: Thyroid cancer. TECHNIQUE: Sonography of the cervical lymph node stations was performed bilaterally. Images were obtained and stored in a permanent archive. COMPARISON: Ultrasound cervical lymph node mapping 10/03/2019 RESULT: There are multiple bilateral cervical lymph nodes. Enlarged lymph nodes (short axis greater than 0.8 cm for level I and II or greater than 0.5 cm for all other levels) and/or lymph nodes with suspicious features are detailed below. Suspicious features include microcalcifications, cystic degeneration, increased vascularity, echogenicity greater than adjacent musculature, round morphology (cgtd-[id number]-wwcdt axis < 2) and loss of fatty hilum. Abnormal right cervical lymph nodes, Levels 1-5: * None. Abnormal left cervical lymph nodes , Levels 1-5: * None. Central Neck Compartment, Level : * Thyroid is surgically absent. * No mass or abnormal lymph node. IMPRESSION: No abnormal cervical lymph nodes. ASSESSMENT : 64 year old female presenting for follow up of thyroid cancer, s/p surgery and GAMING in 2006. She is new to me Per previous notes, Thyroid micro CA , papillary/follicular variant, treated with GAMING because of concerns at that time for using TNF alpha agents (Humira, then Etanercept) in a patient with thyroid CA. It has been more than 15 years since cancer treatment, and per surgical pathology on chart review, this can be considered low risk of recurrence She has not seen Endo since 03/2020 Repeat tumor markers and US cervical LN mapping checked, and with no concerns PLAN: - I discussed with her that we can reduce the dose of LT4 to 100 mcg daily due to excellent response, long duration since thyroid cancer treatment and growing age She is agreeable to this - Recommended labs in 2 months after dose change- TSH for confirmation of adequacy after dose change Thyroid cancer (HCC) - THYROGLOBULIN, SERUM WITH REFLEX TO IA OR LC-MS/MS; Future - THYROID STIMULATING HORMONE; Future FOLLOW UP: in 1 year If every thing is normal, follow up can be done once yearly Medical Decision Making: Problems: Low: Stable chronic illness Data: Unique test result(s) reviewed: 3+ Unique test(s) ordered: 1 Risk: Moderate: Drug management Medical Decision Making Level: 4 - Moderate Alberto Matias MD Endocrinology Associate Staff [facility] Endocrinology and Metabolism [place] [phone] documented in this encounter [facility] 01-06-2025 Note [facility] 01-06-2025 History of Presen t illness Narrative Episode Visit Count: 5 Therapist That Will Accept/Oversee The Plan Of Care: Josep Wise, PT. Start of Care Date: 11/02/24 Onset Date: 11/02/22 (Worsening the last two years per patient.) Plan of Care Certification Date: (N/A) Next Certification Due Date: (N/A) Patient Identified by Name and Date of : Yes REHABILITATION AND SPORTS THERAPY PHYSICAL THERAPY TREATMENT NOTE ASSESSMENT: Mariam Minaya tolerated the session with fatigue, decreased symptoms, and expected muscle soreness. She demonstrated improvements in tightness of L knee after superficial effleurage. The patient will continue to benefit from ongoing skilled physical therapy to progress toward set goals. PLAN FOR NEXT VISIT: Continue superficial effleurage prn SUBJECTIVE: Pt reports that her knee is still swelling a lot. Had follow-up with and he is pleased with progress. Is now on Prednisone to help with inflammation. Pain: Pain Pain Level: 3 Pain Location: Knee - Left Post Treatment Pain Post Treatment Pain Level: Better OBJECTIVE MEASURES WITH LEVEL OF FUNCTION: Notable swelling in L knee TREATMENT: Therapeutic Exercise: 1: Sci-Fit: 5 Min, seat # 11, resistance level 1. 2: L step ups on 6 inch step 2x10 3: Lateral step ups on 6 inch step 2x10 LLE Skilled Intervention: Patient was educated in proper exercise technique and purpose for exercises. Skilled judgment was used in selection of appropriate interventions. Correct performance of therapeutic exercises was facilitated with verbal and visual cuing. Manual Therapy: 1: Superficial effleurage x 10 minutes to LLE with BLE elevated on 2 bolsters. Skilled Intervention: Manual skills to improve joint mobility, ROM, and decrease pain. Utilized anatomy knowledge of the clinician, and assessment of patient's response to intervention. Billing Therapeutic Exercise Treatment Minutes: 34 Manual TherapyTreatment Minutes: 10 Skilled Treatment Time Minutes (timed and untimed codes): 44 Total Session Time (minutes): 44 Session Start Time : 1308 Session Stop Time : 1352 Mieshajenny Birmingham, DEBBIE Crane PT documented in this encounter [facility] [facility] 01-02-2025 History of Presen t illness Narrative Radiology Service Progress Note PATIENT NAME: Mariam Minaya DATE OF SERVICE: January 02, 2025 TIME: 2:30 PM PATIENT IDENTITY VERIFICATION COMPLETED USING TWO (2) IDENTIFIERS: Name and Date of confirmed by patient verbally. FALL SCREENING: Has the patient had 2 falls in the last year or 1 fall with injury or currently using an Ambulatory Assistive Device (Walker, Cane, Wheelchair, Crutches, etc.)? No PATIENT GENDER DATA: Assigned female at . status: : No status: NO. PATIENT RELEVANT IMPLANT DATA REVIEWED: Not Applicable PATIENT PRESENTS WITH AN IMPLANTABLE OR ATTACHED ADMINISTRATIVE SUPPORT ASSISTANT: No RADIOLOGY DEPARTMENT: Ultrasound PERIPHERAL IV DATA: Not applicable SIGNED BY: Andrew Moreno RDMS January 02, 2025 2:30 PM documented in this encounter [facility] 01-02-2025 Note HNO ID: [id number] Author: ANDREW MORENO RDMS Service: ? Author Type: Technologist Type: Progress Notes Filed: 01/02/2025 14:30 Note Text: Radiology Service Progress Note PATIENT NAME: Mariam Minaya DATE OF SERVICE: January 02, 2025 TIME: 2:30 PM PATIENT IDENTITY VERIFICATION COMPLETED USING TWO (2) IDENTIFIERS: Name and Date of confirmed by patient verbally. FALL SCREENING: Has the patient had 2 falls in the last year or 1 fall with injury or currently using an Ambulatory Assistive Device (Walker, Cane, Wheelchair, Crutches, etc.)? No PATIENT GENDER DATA: Assigned female at . status: : No status: NO. PATIENT RELEVANT IMPLANT DATA REVIEWED: Not Applicable PATIENT PRESENTS WITH AN IMPLANTABLE OR ATTACHED ADMINISTRATIVE SUPPORT ASSISTANT: No RADIOLOGY DEPARTMENT: Ultrasound PERIPHERAL IV DATA: Not applicable SIGNED BY: Andrew Moreno RDMS January 02, 2025 2:30 PM [facility] 12-28-2024 History of Presen t illness Narrative Post-op Office Visit Mariam Minaya 64 year old December 28, 2024 12:00 PM History: Mariam Minaya Is now 6 weeks s/p L TKA. Post-operative course has been without complication. no readmission/complications Subjective: Patient reports mild pain. Patient is doing really well but unfortunately got tripped by her dog and landed on both her knees. She has some swelling in the left knee and right knee. Overall the pain is getting better but has some swelling loss a little bit of motion as she was at 110 previously and now is at 105. cane ambulatory aid no opioid pain medication Objective: Ambulates with cane Incision well-approximated, no drainage, normal richard-incisional erythema ROM 0 - 105 Distally DP/PT palpable Distally S/S/SP/DP/T intact at baseline Distally DF/EHL/PF intact at baseline Negative dee dee/calf tenderness Xrays: No new today Assessment and Plan: Mariam Minaya Is here for a second post-op appointment, overall doing well -continued ice, rest, and use of non-narcotic analgesia as needed -discussed home exercises -WBAT on operative extremity -continue ankle pumps and dvt ppx through 4 weeks -will see back at 6 month post-op for repeat exam and xrays--can see sooner if needed -discussed red flag symptoms of acutely increasing pain, new erythema, new swelling, drainage, shortness of breath Nathaniel Vasquez MD documented in this encounter [facility] 12-28-2024 Note [facility] 12-26-2024 Note [facility] 12-26-2024 History of Presen t illness Narrative Episode Visit Count: 4 Therapist That Will Accept/Oversee The Plan Of Care: Josep Wise PT. Start of Care Date: 11/02/24 Onset Date: 11/02/22 (Worsening the last two years per patient.) Plan of Care Certification Date: (N/A) Next Certification Due Date: (N/A) Patient Identified by Name and Date of : Yes REHABILITATION AND SPORTS THERAPY PHYSICAL THERAPY TREATMENT NOTE ASSESSMENT: Mariam Minaya tolerated the session with fatigue and expected muscle soreness. She demonstrated difficulty with swelling in L knee due to recent injury. The patient will continue to benefit from ongoing skilled physical therapy to progress toward set goals. PLAN FOR NEXT VISIT: Quad strength. L Knee ROM. Review post-op follow-up with Dr. Vasquez SUBJECTIVE: Pt reports that she fell yesterday, one of her dogs hit her knee and caused her to fall and slip down the hill, but did not hurt her L knee but it is more tender today. Pain: Pain Pain Level: 4 Pain Location: Knee - Left OBJECTIVE MEASURES WITH LEVEL OF FUNCTION: LE AROM L Knee Flexion: 111 Degrees (AAROM with strap) Notable swelling in L knee this visit. TREATMENT: Therapeutic Exercise: 1: Sci-Fit: 5 Min, seat # 11, resistance level 1. 2: L heel slides 2x10 with strap 3: Quad sets 3x10 4: L step ups on 6 inch step 2x10 5: Standing HS curls 2x10 Skilled Intervention: Patient was educated in proper exercise technique and purpose for exercises. Skilled judgment was used in selection of appropriate interventions. Correct performance of therapeutic exercises was facilitated with verbal and visual cuing. Billing Therapeutic Exercise Treatment Minutes: 46 Skilled Treatment Time Minutes (timed and untimed codes): 46 Total Session Time (minutes): 46 Session Start Time : 1400 Session Stop Time : 1446 DEBBIE García PT, DPT. documented in this encounter [facility] 12-23-2024 History of Presen t illness Narrative Program_ID:[id number] Access Code: [email or web address] URL: [email or web address] Date: 12-23-2024 Prepared By: Miesha Birmingham Program Notes Exercises - Supine Heel Slide with Strap - 2-3 x daily - 7 x weekly - 2 sets - 10 reps - Seated Long Arc Quad - 2-3 x daily - 7 x weekly - 2 sets - 10 reps - Step Up - 2-3 x daily - 7 x weekly - 2 sets - 10 reps - Seated Quad Set - 2-3 x daily - 7 x weekly - 2 sets - 10 reps Episode Visit Count: 3 Therapist That Will Accept/Oversee The Plan Of Care: Josep Wise, PT. Start of Care Date: 11/02/24 Onset Date: 11/02/22 (Worsening the last two years per patient.) Plan of Care Certification Date: (N/A) Next Certification Due Date: (N/A) Patient Identified by Name and Date of : Yes REHABILITATION AND SPORTS THERAPY PHYSICAL THERAPY TREATMENT NOTE ASSESSMENT: Mariam Minaya tolerated the session with fatigue and expected muscle soreness. She demonstrated improvements in L knee ROM. The patient will continue to benefit from ongoing skilled physical therapy to progress toward set goals. PLAN FOR NEXT VISIT: Quad strength. L Knee ROM SUBJECTIVE: Pt reports that her L knee is pretty sore. Pt states that she has been really sick with the flu and has not done a ton a of exercise since the past 3 days. Pt feels she got really weak. Took her dogs for a mile walk today. Pain: Pain Pain Level: 5 Pain Location: Knee - Left Post Treatment Pain Post Treatment Pain Level: Better OBJECTIVE MEASURES WITH LEVEL OF FUNCTION: LE AROM L Knee Extension: 0 Degrees L Knee Flexion: 110 Degrees (AAROM with strap) TREATMENT: Therapeutic Exercise: 1: Sci-Fit: 5 Min, seat # 11, resistance level 1. 2: L heel slides 2x10 with strap 3: *LAQ 2x10 LLE 4: *Step ups 2x10 LLE Skilled Intervention: Patient was educated in proper exercise technique and purpose for exercises. Reviewed and educated patient on additions/changes for home exercise program as above (*). Skilled judgment was used in selection of appropriate interventions. Provided written instruction for home exercise program to facilitate proper performance and compliance. Correct performance of therapeutic exercises was facilitated with verbal and visual cuing. Billing Therapeutic Exercise Treatment Minutes: 41 Skilled Treatment Time Minutes (timed and untimed codes): 41 Total Session Time (minutes): 41 Session Start Time : 1314 Session Stop Time : 1355 DEBBIE García, PT, DPT. documented in this encounter [facility] 12-23-2024 Note [facility] 12-22-2024 Telephone encounter Note Spoke to patient and relayed message. Patient verbalized understanding. Susanna [facility] 12-22-2024 Miscellaneous Notes Spoke to patient and relayed message. Patient verbalized understanding. Susanna Please advise the patient that she is due for a HCQ eye exam. Please remind her to schedule this. Short term script sent. The following approved medication requests have been transmitted electronically. Requested Prescriptions Signed Prescriptions Disp Refills hydrOXYchloroQUINE (PLAQUENIL) 200 mg tablet 45 tablet 0 Sig: Take 1 and a half tablets by mouth once daily. Authorizing Provider: MICHELLE SIMPSON APRN.CNP Pharmacist Managed Refill Encounter Name: Mariam Minaya Refill authorization request(s) received and reviewed under effective consult agreement. The patient consented to the pharmacy service and agreed to allow medications to be collaboratively managed by the pharmacist. The patient may decline or cancel the agreement at any time. Upon review, it was confirmed that an active patient-provider relationship exists, and the prescriber is a participating physician under the consult agreement. Last office visit in this department: 05/17/2024 Michelle Simpson APRN.CNP Last distance health visit in this department: 08/07/2020 Kenneth Alonzo MD Next appointment in this department: 03/14/2025 Michelle Simpson APRN.CNP Requested Prescriptions Pending Prescriptions Disp Refills hydrOXYchloroQUINE (PLAQUENIL) 200 mg tablet 135 tablet 0 Sig: Take 1 and a half tablets by mouth once daily. The medication(s) fall under category 3: Medications fail to meet 1 or more criteria (medication excluded from collaborative practice agreement and condition or diagnosis excluded from collaborative practice agreement) necessary for pharmacist approval, routed to provider for review. # of refills routed in this encounter: 1 # of refills approved in this encounter: 0 Jesus Scott RPh documented in this encounter [facility] 12-22-2024 Telephone encounter Note Please advise the patient that she is due for a HCQ eye exam. Please remind her to schedule this. Short term script sent. The following approved medication requests have been transmitted electronically. Requested Prescriptions Signed Prescriptions Disp Refills hydrOXYchloroQUINE (PLAQUENIL) 200 mg tablet 45 tablet 0 Sig: Take 1 and a half tablets by mouth once daily. Authorizing Provider: MICHELLE SIMPSON APRN.CNP [facility] 12-22-2024 Telephone encounter Note Pharmacist Managed Refill Encounter Name: Mariam Minaya Refill authorization request(s) received and reviewed under effective consult agreement. The patient consented to the pharmacy service and agreed to allow medications to be collaboratively managed by the pharmacist. The patient may decline or cancel the agreement at any time. Upon review, it was confirmed that an active patient-provider relationship exists, and the prescriber is a participating physician under the consult agreement. Last office visit in this department: 05/17/2024 Michelle Simpson APRN.CNP Last distance health visit in this department: 08/07/2020 Kenneth Alonzo MD Next appointment in this department: 03/14/2025 Michelle Simpson APRN.CNP Requested Prescriptions Pending Prescriptions Disp Refills hydrOXYchloroQUINE (PLAQUENIL) 200 mg tablet 135 tablet 0 Sig: Take 1 and a half tablets by mouth once daily. The medication(s) fall under category 3: Medications fail to meet 1 or more criteria (medication excluded from collaborative practice agreement and condition or diagnosis excluded from collaborative practice agreement) necessary for pharmacist approval, routed to provider for review. # of refills routed in this encounter: 1 # of refills approved in this encounter: 0 Jesus Scott RPh [facility] 12-08-2024 Discharge summary [facility] 12-08-2024 Telephone encounter Note Images from the original note were not included. Nathaniel Vasquez MD You; Constantino Whiteside RN; Pato Rojas PA-C41 minutes ago (3:13 PM) Can take prednisone 5mg bid for 10 days [facility] 12-08-2024 Miscellaneous Notes Images from the original note were not included. Nathaniel Vasquez MD You; Constantino Whiteside RN; Pato Rojas PA-C41 minutes ago (3:13 PM) Can take prednisone 5mg bid for 10 days Pt calling RN line. She is having a sharp pain on the right side of her knee. If she uses an ice pack, it's too painful. Sends a pain down her arguelles. Asking if there is something else she can use or do. She isn't getting sleep because of this. Ph. [phone] documented in this encounter [facility] 12-08-2024 Radiology Diagnostic study note [facility] Imaging Services [address] [place] [address] Abdomen/Pelvis W IV Cont ONLY MR#: [id number] Acct: [id number] Name: MARIAM MINAYA V Rep #: [id number] : 1960 F 64 From: Ermias Monge MD PCP: Dr. Laura Robertson MD Status: RE G ER Study:Abdomen/Pelvis W IV Cont ONLY Date of E xam: 12/08/24 Exam# [id number] Ordering Dr: Jose Mcarthur DO PROCEDURE: ABDOMEN/PELVIS W IV CONT ONLY 12/08/2024 REASON FOR EXAM: LLQ ABD PAIN TECHNIQUE: Abdomen and pelvis CT with intravenous contrast. Coronal and Sagittal reconstruction series were provided. PATIENT PREPARATION: Per protocol ORAL CONTRAST TYPE: None. CONTRAST: Isovue-300 VOLUME: 100 mL One or more dose reduction techniques were used (e.g., Automated exposure control, adjustment of the mA and/or kV according to patient size, use of iterative reconstruction technique. RADIATION DOSE SUMMARY: CTDlvol: 10 mGy DLP: 382.59 mGycm COMPARISON: None FINDINGS: Lung bases: Mild dependent atelectasis. Bilateral breast implants. Liver: Normal size. No mass. Gallbladder: Surgically absent. Spleen: Normal size. Pancreas: Normal size without evidence of mass surrounding inflammation or ductal dilation. Adrenals: Unremarkable Kidneys: Normal renal sizes. No hydronephrosis. Bladder: Unremarkable Reproductive Organs: Prior hysterectomy. Adnexal regions are unremarkable. Bowel: Colonic diverticulosis without diverticulitis. Appendix: The appendix is not identified. There is no inflammatory process identified in the right lower quadrant to suggest appendicitis. Lymph nodes: Unremarkable. Vasculature: Mild diffuse atherosclerotic calcifications are noted. Peritoneum / Retroperitoneum: Unremarkable Bones: Degenerative changes of the spine. CT/Abdomen/Pelvis W IV Cont ONLY IMPRESSION: Status post cholecystectomy and hysterectomy. Sigmoid diverticulosis with no radiographic evidence of diverticulitis. Reading Location: [facility] CC: Dr. Laura Robertson MD; Dr. Leander Mcarthur DO ~ Provisioning Specialist: Signed [facility] 12-08-2024 Discharge summary Note Date/Time December 08, 2024 6:20pm [facility] Medical Records Department [address] [place] [id number] Emergency Department Summary 12/08/24 MR#: [id number] Acct: [id number] Name: MARIAM MINAYA V Rep #:[id number] : 1960 64 From: Leander Mcarthur DO PCP: Dr. Laura Robertson MD Status:RE G ER Location: ED HPI History of Present Illness Chief Complaint: Nausea/Vomiting/Diarrhea Narrative Narrative: Patient is a 64-year-old female with past medical history of rheumatoid arthritis, hypothyroidism, GERD who presented to the emergency department the chief complaint of nausea vomiting diarrhea and abdominal pain. Patient states that she has been sick for about a week and a half that her symptoms are progressively worsened prompting her to come here for the further evaluation management. Patient states that her was ill about 2 weeks ago but denies any other sick contacts. States that in October she had her gallbladderremoved and denies any other abdominal surgeries. [facility] Medical History Medication reaction Myalgia Hypothyroidism GERD (gastroesophageal reflux disease) Rheumatoid arthritis Home Medications ?Medication ?Instructions ?Recorded ?Last Taken ?Type Chlordiazepoxide/Clidinium Br 1 capsule PO BID 4 Unknown History [Chlordiazepoxide-Clidinium Cap] cyclobenzaprine 10 mg tablet 10 mg PO TID 10/05/13 Unk nown History dexlansoprazole 60 mg 60 mg PO DAILY 10/05/13 Unkn own History capsule,biphase delayed release (Dexilant) estradiol 0.1 mg/24 hr semiweekly 0.1 mg topical QWEEK 10/05/13 Unknown History transdermal patch hydrocodone-acetaminophen 5-325mg 1 - 2 tab PO Q4H PRN PRN Pain ##12 10/05/13 Unknown Rx 5mg-325mg hydroxychloroquine 200 mg tablet 200 mg PO BIDCM 10/05 Unknown History levothyroxine 150 mcg tablet 150 mcg PO DAILY 10/05/13 Unknown History etanercept 50 mg/mL (1 mL) mg subcut 08/08/21 Unknown History subcutaneous pen injector (Enbrel SureClick) hydrocodone-acetaminophen 5-325mg 1 tab PO Q6H PRN silvia n 3 days #10 08/09/22 Unknown Rx 5mg-325mg tabs ondansetron 4 mg disintegrating 4 mg PO Q8H PRN nausea and 08/09/22 Unknown Rx tablet vomiting #10 tabs promethazine 25 mg tablet 25 mg PO TID PRN nausea and 08/09/22 Unknown Rx vomiting #10 tabs ondansetron 4 mg disintegrating 4 mg PO TID PRN nausea and 09/24/24 Unknown Rx tablet vomiting #21 tabs dicyclomine 20 mg tablet 20 mg PO TID #30 tabs Unknown Rx ondansetron 4 mg disintegrating 4 mg PO Q6H PRN nausea and 12/08/24 Unknown Rx tablet vomiting #30 tabs Allergy/AdvReac Type Severity Reaction Status Date / Time aminocaproic acid (From Allergy Rash Verified 12/08/24 13:32 Amicar) methotrexate AdvReac Other Verified 12/08/24 13:32 Surgical History Hx of cholecystectomy Social History Smoking Status: Never smoker ROS ROS ED ROS Narrative Constitutional: Complains of chills denies fevers, headaches, lightness, dizziness Cardiovascular: Denies chest pain or palpitations Respiratory: Denies cough or wheezing shortness of breath Abdomen: Complains of abdominal pain as noted above as well as nausea vomiting diarrhea : Denies urinary symptoms Neurological: Denies numbness, weakness, tingling Musculoskeletal: Denies back pain Skin: Denies rashes or lesions EXAM Physical Exam Narrative Exam Narrative: General: Patient was lying in bed rest comfortably did not appear to be in acutedistress Head: Atraumatic, normocephalic Eyes: PERRL bilateral, EOMI bilateral, no conjunctival injection noted Neck: Soft, supple, trachea midline Cardiovascular: Regular rate and rhythm no murmurs gallops rubs noted Respiratory: Clear to auscultation bilaterally no rales rhonchi or wheezes noted Abdomen: Soft, nondistended, tender to palpation left lower quadrant no rebound or guarding on exam Extremities: +5/5 strength noted in the bilateral upper and lower extremities Neurological: Patient following commands knew that she was at [facility] year is 2024 Skin: Warm, dry, intact no rashes or lesions noted Const Vital Signs: 12/08/24 13:32 12/08/24 15:56 12/08/24 16:51 Temperature 97.8 F Temperature Source Oral Pulse Rate 92 81 68 Respiratory Rate 24 H 16 15 Blood Pressure 120/56 L Blood Pressure Mean 77 Pulse Ox 100 94 97 Oxygen Delivery Method Room Air Room Air Room Air 12/08/24 17:50 12/08/24 18:10 Temperature 98.0 F Temperature Source Pulse Rate 75 Respiratory Rate 15 Blood Pressure 127/75 H 127/75 H Blood Pressure Mean 92 92 Pulse Ox 97 Oxygen Delivery Method MDM MDM MDM Narrative Medical decision making narrative: Patient is a 64-year-old female who presented to the emergency department the chief complaint of abdominal pain nausea vomiting diarrhea. On the differentialdiagnosis includes Melamin to ileus, viral gastroenteritis, COVID, flu, diverticulitis. Once workup is obtained reviewed she will be reevaluated. Patient be given Zofran and Bentyl and IV fluids. Patient's CBC was reviewed showed no evidence leukocytosis white blood count normal 6.5, hemoglobin 13.7, platelet count normal at 301. Patient sodium normal 137, potassium normal at 4, creatinine was 0.85. Do believe that patientdoes not have an anion gap there has been lab errors recently for that she is not diabetic and her glucose was noted to be normal at 77. Patient's urinalysisdid show 150 ketones but no evidence of infection she was given 2 L of IV fluid total. Patient CT abdomen pelvis with IV contrast reviewed and showed status post cholecystectomy and hysterectomy sigmoid diverticulosis no evidence of diverticulitis. Patient tested negative for COVID flu and RSV. Patient was having some more pain therefore she was given morphine and Zofran here in the emergency department. On reevaluation patient she was feeling better she was given oral challenge herein the emergency department which she tolerated without any vomiting. I did offer her admission for observation versus going home and she would like to go home at this point time and return with worsening symptoms or concerns. Patientwas given prescriptions for Bentyl and Zofran for at home she was advised to start with a bland diet advance as tolerated. She is agreeable this plan as well as significant other at bedside all question concerns answered she was discharged home in stable condition. Lab Data Labs: Laboratory Results - last 24 hr 12/08/24 12/08/24 13:50 15:23 WBC 6.5 RBC 4.70 Hgb 13.7 Hct 40.7 MCV 86.6 MCH 29.1 MCHC 33.7 RDW Std Deviation 40.2 RDW Coeff of Natalia 12.7 Plt Count 301 MPV 10.3 Immature Gran % (Auto) 0.200 Neut % (Auto) 62.5 Lymph % (Auto) 24.6 [place] % (Auto) 8.9 Eos % (Auto) 2.6 Baso % (Auto) 1.2 H Absolute Neuts (auto) 4.1 Absolute Lymphs (auto) 1.61 Nucleated RBC % 0 Sodium 137 Potassium 4.0 Chloride 102 Carbon Dioxide 17.4 L Anion Gap 18 H BUN 31 H Creatinine 0.85 Estim Creat Clear Calc 62.59 Est GFR (MDRD) Non-Af 76 BUN/Creatinine Ratio 35.9 H Glucose 77 Calcium 9.5 Total Bilirubin 0.59 AST 25 ALT 16 Alkaline Phosphatase 110 H Total Protein 7.3 Albumin 4.6 Globulin 2.7 Albumin/Globulin Ratio 1.7 Lipase 40 Urine Color Yellow Urine Clarity Sl. Cloudy Urine pH 5.0 Ur Specific Tibbie 1.010 Urine Protein 30 H Urine Glucose (UA) Normal Urine Ketones 150 A* Urine Occult Blood Negative Urine Nitrite Negative Urine Bilirubin Negative Urine Urobilinogen Normal Ur Leukocyte Esterase Negative Urine RBC 0-5 SEEN Urine WBC 0-5 SEEN Ur Squamous Epith Cells 0-5 SEEN Urine Bacteria 0 SEEN Urine Mucus 0 SEEN Radiography Diagnostic Testing: Clinical Impression(s) from Imaging Studies Abdomen/Pelvis CT 12/08/24 14:20 IMPRESSION: Status post cholecystectomy and hysterectomy. Sigmoid diverticulosis with no radiographic evidence of diverticulitis. Reading Location: [place] [address] Discharge Plan Triage Chief Complaint: Nausea/Vomiting/Diarrhea ED Provider: Leander Mcarthur Dx/Rx/DC Orders Clinical Impression: Abdominal pain Prescriptions: New dicyclomine 20 mg tablet 20 mg PO TID Qty: 30 0RF ondansetron 4 mg tablet,disintegrating 4 mg PO Q6H PRN (Reason: nausea and vomiting) Qty: 30 0RF No Action cyclobenzaprine 10 MG tablet 10 mg PO TID levothyroxine 150 MCG tablet 150 mcg PO DAILY hydroxychloroquine 200 MG tablet 200 mg PO BIDCM dexlansoprazole [Dexilant] 60 MG capsule,biphase delayed releas 60 mg PO DAILY Chlordiazepoxide/Clidinium Br [Chlordiazepoxide-Clidinium Cap] 1 EACH capsule 1 capsule PO BID estradiol 0.1 MG patch 0.1 mg topical QWEEK Patient Comments: CHANGES PATCH 2 TIMES WEEKLY hydrocodone-acetaminophen 1 TABLET tablet 1 - 2 tab PO Q4H PRN PRN (Reason: Pain) Qty: 12 0RF Enbrel SureClick 50 mg/mL (1 mL) pen injector SUBCUT hydrocodone-acetaminophen 5-325 mg tablet 1 tab PO Q6H PRN (Reason: pain) 3 Days Qty: 10 0RF ondansetron 4 mg tablet,disintegrating 4 mg PO Q8H PRN (Reason: nausea and vomiting) Qty: 10 0RF promethazine 25 mg tablet 25 mg PO TID PRN (Reason: nausea and vomiting) Qty: 10 0RF ondansetron 4 mg tablet,disintegrating 4 mg PO TID PRN (Reason: nausea and vomiting) Qty: 21 0RF Primary Care Provider: Laura Robertson Referrals: Laura Robertson MD [Primary Care Provider] - Activity Restrictions/Additional Instructions: Your CT scan here today did not show anything surgical it showed diverticulosis no evidence of diverticulitis. Your blood work did not show anything acute either. Continue supportive care start bland diet advance as tolerated use prescriptions as prescribed. Return with worsening symptoms or other concerns. Print Language: Austrian Disposition Disposition: Home, Self Care What to do if you have Problems For any increased pain, shortness of breath, bleeding, nausea or vomiting, chestpain, or any unexpected problems, contact your Primary Care Provider. Call [facility] ([phone]) or report to the closest Emergency Room. Call 911 if necessary. 12/08/24 1820 <Electronically signed by Leander Mcarthur DO> Cosigner Signature (if applicable): CC: Dr. Laura Robertson MD ~ Signed [facility] Work Phone: 1(956) 935-706704-03-2025 NoteC[facility]04-03-2025 History of Present illness Narrative* Emily Winston APRN.BUILDING MAINTENANCE SUPERVISOR - 12/08/2024 1:21 PM EDT Patient has severe abdominal pain centrally located. Patient's been sick for about a week. Patient says symptoms are getting worse. Patient is vomiting and has diarrhea. Patient is currently slumped over in a wheelchair saying she feels extremely weak and like she wants to pass out. Patient says she has had low- grade fevers with this on and off. Patient has had 3 surgeries in the past several months. At this time due to weakness and dizziness patient has expressed patient is being referred to the emergency room. Not sure which emergency room she is going to go to. But her will take her. documented in this encounterPrem[facility]04-[facility] Telephone encounter Note * Telephone Encounter - Constantino Whiteside RN - 12/08/2024 1:14 PM EDT Pt calling RN line. She is having a sharp pain on the right side of her knee. If she uses an ice pack, it's too painful. Sends a pain down her arguelles. Asking if there is something else she can use or do. She isn't getting sleep because of this. Ph. [phone] [facility]03-31-2025 Telephone encounter Note* Telephone Encounter - Erica Smallwood - 12/05/2024 9:18 AM EDT Transitional Care Management (TCM) [facility] Monitoring Program Provider Action / FYI: N/A SUMMARY: Outreach type: INITIAL OUTREACH Discharge Network Status: In-Network Discharge Source of Patient: [facility] TCM Discharge Report Patient discharged from [place] on 11/13/2024 Admitted for S/P total knee arthroplasty, left. Contact made with patient: No - 2nd unsuccessful attempt - end outreach and close encounter. Erica Smallwood December 05, 2024 9:19 AM [facility]03-31-2025 Miscellaneous Notes* Telephone Encounter - Erica Smallwood - 12/05/2024 9:18 AM EDT Transitional Care Management (TCM) [facility] Monitoring Program Provider Action / FYI: N/A SUMMARY: Outreach type: INITIAL OUTREACH Discharge Network Status: In-Network Discharge Source of Patient: [facility] TCM Discharge Report Patient discharged from [place] on 11/13/2024 Admitted for S/P total knee arthroplasty, left. Contact made with patient: No - 2nd unsuccessful attempt - end outreach and close encounter. Erica Smallwood December 05, 2024 9:19 AM documented in this encounterPremier [facility]03-27-2025 Telephone encounter Note * Telephone Encounter - Cuong Dang - 12/01/2024 3:07 PM EDT Transitional Care Management (TCM) [facility] Monitoring Program Provider Action / FYI: na SUMMARY: Outreach type: INITIAL OUTREACH Discharge Network Status: In-Network Discharge Source of Patient: [facility] TCM Discharge Report Patient discharged from [place] on 11.13.24 Admitted for S/P total knee arthroplasty, left. . Contact made with patient: No - next outreach attempt will be on next business day. Cuong Dang December 01, 2024 3:09 PM [facility]03-27-2025 Miscellaneous Notes* Telephone Encounter - Cuong Dang - 12/01/2024 3:07 PM EDT Transitional Care Management (TCM) [facility] Monitoring [facility] Provider Action / FYI: na SUMMARY: Outreach type: INITIAL OUTREACH Discharge Network Status: In-Network Discharge Source of Patient: [facility] TCM Discharge Report Patient discharged from [place] on 11.13.24 Admitted for S/P total knee arthroplasty, left. . Contact made with patient: No - next outreach attempt will be on next business day. Cuong Dang December 01, 2024 3:09 PM documented in this encounterPremier Health [facility]03-27-2025 History of Present illness Narrative* Josep Wise, PT - 12/01/2024 12:49 PM EDT Program_ID:[id number] Access Code: [email or web address] URL: [email or web address] Date: 12-01-2024 Prepared By: Josep Wise Program Notes Exercises - Supine Heel Slide with Strap - 2 x daily - 7 x weekly - 2 sets - 10-15 reps - Knee Flexion Step - 2 x daily - 7 x weekly - 2 sets - 10 reps - Seated Knee Flexion AAROM - 2 x daily - 7 x weekly - 2 sets - 10 reps - Active Straight Leg Raise with Quad Set - 2 x daily - 7 x weekly - 2 sets - 10 reps - Supine Short Arc Quad - 2 x daily - 7 x weekly - 2 sets - 10 reps - Long Arc Quad on Table - 2 x daily - 7 x weekly - 2 sets - 10 reps - Seated Knee Extension Stretch with Chair - 2 x daily - 7 x weekly - sets - 2 reps * Josep Wise, PT - 12/01/2024 12:13 PM EDT Images from the original note were not included. Episode Visit Count: 2 Therapist That Will Accept/Oversee The Plan Of Care: Josep Wise, PT. Start of Care Date: 11/02/24 Onset Date: 11/02/22 (Worsening the last two years per patient.) Plan of Care Certification Date: (N/A) Next Certification Due Date: (N/A) Patient Identified by Name and Date of : Yes REHABILITATION AND SPORTS THERAPY PHYSICAL THERAPY RE-EVALUATION PLAN OF CARE UPDATE: Assessment: Mariam Minaya presents 21 days s/p L TKA. Has completed HHPT and returned to outpatient for re-evaluation and progression in post-op status. Patient presents with impairments in ADL's, gait, independence in exercise, overall function, rangeof motion, soft tissue healing, strength, symptom management, and tissue tenderness that interfere with walking in the community, stair negotiation, squatting, physical activities, sitting (ProlongedDriving.) . Current prognosis is Good due to: current objective clinical presentation, good overallhealth status, acuteness of condition . The patient will benefit from continued skilled therapy services to meet the updated goals for this plan of care as noted below. Goals Added:12/01/24. Burke in home exercise program. Patient will decrease pain rating by 2 points to meet minimal clinical important difference for numeric pain rating scale. Increase ROM of L Knee to 2-0-120 degrees for increased functional mobility. Increased strength of L LE to 5/5 MMT for improved ADL/IADLs. Normal gait without deficits, unassisted. Reciprocal stair negotiation without upper extremity assist Planned Interventions, Frequency, and Duration: 2x/week, 8 weeks Total Number of Visits Planned: 16 Patient to be seen for Therapeutic exercise (11376), Neuromuscular re-education (89648), Manual therapy (69340), Therapeutic activities (92053), Self-fci management (97282), Patient/Family/Caregiver Education, Body Mechanics Training, Gait Training (40485) PLAN FOR NEXT VISIT: Knee Ext A/AAROM/PROM; Quad Control; Gait Advances. SUBJECTIVE: 21 days s/p L TKA. Discharged from [facility] on Thursday. STates post-op has been without complication. Taking Oxycodone at night, not during the day or before she drives. Drove here today. tylenol as needed. Icing all the time. Arrives without AD with limp. States she got off cane 3-4 days ago, felt like she was limping more with the cane. States the knee started bruising a couple days ago, also has a red rash area on the medial knee. Denies icing directly on the skin. Functional Limitations: walking in the community, stair negotiation, squatting, physical activities, sitting (Prolonged Driving.) Prior Level of Function: Independent without limitations Intake Information: Prescription present Previous Treatment: Physical Therapy , Injections , Surgery , Ice Falls Interview: No positive findings with falls interview Pain: Pain Pain Level: 4 Pain Location: Knee - Left Description: Throbbing Frequency: Continuous PROMIS Scales 11/25/2024 11/20/2024 10/30/2024 Higher is Better Phys Func - T Score 35 (moderate dysfunction) Phys Func - Percentile 7 Self-Eff Symptom - T Score 47 (Average) 48 (Average) Self-Eff Symptom - Percentile 38 42 Mobility - T Score 44 (mild dysfunction) Mobility - Percentile 27 05/16/2024 07/14/202302/10/2023 Lower is Better Pain Interference - T Score 62 (moderate) 74 (severe) 74 (severe) Pain Interference - Percentile 12 1 1 T-scores: mean of general population = 50. 5 points is clinically meaningfully difference Percentiles provide an indication of how the patient's score ranks in relation to the general population. Higher percentile rankings indicate better function/quality of life. 50th percentile is the average of the general population and indicates half of respondents had a worse score. OBJECTIVE MEASURES WITH LEVEL OF FUNCTION: Knee Observations L Knee Presents with: Swelling, Incision, Comments L Swelling: Diffuse, moderate, appropriate post-op appearance. L Incision: Incisions demo appropriate healing, clean, no-drainage, redness or warmth. No other clinical signs of infection. L Knee Presents with Comments: Small rash on the medial side of her knee R Circumference 6 inches above mid-patella (inches): 17 inches R Circumference mid patella (inches): 16 inches R Circumference 6 inches below mid-patella (inches): 14 inches L Circumference 6 inches above mid-patella (inches): 17 inches L Circumference mid patella (inches): 16.25 inches L Circumference 6 inches below mid-patella (inches): 14.25 inches L Knee Palpation Tenderness: Comments Comments: Gross Tenderness. Incision Tenderness. LE AROM R Knee Extension: 0 Degrees R Knee Flexion: 100 Degrees (100 AROM; 105 AAROM Strap.) L Knee Extension: 1 Degrees (Propped Ankle) L Knee Flexion: 85 Degrees (AAROM) LE PROM L Knee Extension: 2 Degrees L Knee Flexion: 90 Degrees LE Joint Mobility R Patellar Mobility: WNL L Patellar Mobility: WNL LE Strength L LE Strength: Not formally assessed due to acute postop status. L SLR: x20. <2- 3degree lag on last 3 reps. L Knee Extension (L3): 3/5 Gait Gait Deviations: Left Lower Extremity Gait Observation: Decreased Knee Flexion on LLE Swing; Decreased Juliana overall. Slight noticable limp Stairs: Reciprocal with use of hands. TREATMENT: Therapeutic Exercise: 1: Reviewed HEP Exercises. PT provided demonstration and cueing of exercises for proper completion. Handout provided. Pt demonstrated understanding. Discussed therapy goals, exercise purpose, and discussed exam findings. 2: *L Knee Step Flexion: x10, 5 holds. 3: *L Knee Strap Heel Slides: 2x10. 4: *L Knee AAROM with RLE OP: x10, 1-2 hold in sitting. 5: *L SLR: 1x20. 6: *L SAQ: x10. 7: *L Quad Set with ankle propped: x10, 5-sec holds. 8: Sci-Fit: 5 Min, Level 4.0. Skilled Intervention: Patient was educated in proper exercise technique and purpose for exercises. Reviewed and educated patient on additions/changes for home exercise program as above (*). Skilled judgment was used in selection of appropriate interventions. Provided written instruction for home exercise program to facilitate proper performance and compliance. Correct performance of therapeutic exercises was facilitated with verbal, visual, and tactile cuing. Billing * Re-Evaluation Complexity: 1 Unit Therapeutic Exercise Treatment Minutes: 30 Skilled Treatment Time Minutes (timed and untimed codes): 45 Total Session Time (minutes): 45 Session Start Time : 1215 Session Stop Time : 1300 Josep Wise PT documented in this encounterPremier Health [facility]03-27-2025 NoteC[facility]03-26-2025 Miscellaneous Notes* CARE COORDINATION - Therese Neri LSW - 11/30/2024 8:45 AM EDT 11/30/24 8:53 AM - 8:55 AM SALES VICE PRESIDENT called the pt. and left her a message that SALES VICE PRESIDENT was calling to follow-up that she received the Living Will and Medical POA forms in the mail. SALES VICE PRESIDENT left her name and phone number and informed the pt. to call SALES VICE PRESIDENT with any questions. documented in this encounterPremier Health [facility]03-26-2025 Patient's home Note* HH CARE COORDINATION - Therese Neir LSW - 11/30/2024 8:45 AM EDT 11/30/24 8:53 AM - 8:55 AM SALES VICE PRESIDENT called the pt. and left her a message that SALES VICE PRESIDENT was calling to follow-up that she received the Living Will and Medical POA forms in the mail. SALES VICE PRESIDENT left her name and phone number and informed the pt. to call SALES VICE PRESIDENT with any questions. [facility] Work Phone: 1(604) 723-338603-25-2025 Telephone encounter Note* Telephone Encounter - Ade Fajardo, PT - 11/29/2024 12:18 PM EDT Stacey Vasquez, We are discharging home care PT as scheduled; AAROM: 0-80 degrees. She is scheduled to start outpatient PT on 12/01/24. I added a picture to her chart of her L knee that is located under the scanned documents tab. Her incision is clean, dry, and intact. However, there is a small rash on the medial side of her knee. It is not hot, and the patient stated that the rash started 3 days ago. She thinks that it might be from her ice. Can you please follow up with the patient? Thank you, Ade [facility] Work Phone: [phone]) 433-743703-25-2025 Miscellaneous Notes* Telephone Encounter - Ade Fajardo, PT - 11/29/2024 12:18 PM EDT Stacey Vasquez, We are discharging home care PT as scheduled; AAROM: 0-80 degrees. She is scheduled to start outpatient PT on 12/01/24. I added a picture to her chart of her L knee that is located under the scanned documents tab. Her incision is clean, dry, and intact. However, there is a small rash on the medial side of her knee. It is not hot, and the patient stated that the rash started 3 days ago. She thinks that it might be from her ice. Can you please follow up with the patient? Thank you, Ade documented in this encounterPremier Health [facility] Center03-25-2025 Miscellaneous Notes* PT DISCHARGE - Ade Fajardo, PT - 11/29/2024 11:23 AM EDT SITUATION: only patient present during today's visit. patient reports the following since the last homecare visit: medications/allergies--no changes, no fall. patient reports that she is moving more and doesn'tuse her walker but will use the cane as needed. She stated that she noticed a red rash on the medial portion of her L knee that started 3 days ago. She thinks it might be from her ice. BACKGROUND: Diagnoses (reason for Home Care): L TKA patient underwent L TKA by Dr. Frannie Vasquez on 11/10/24 and returned home on 11/13/24. Weight Bearing/Precaution Changes: WBAT ASSESSMENT: Focus of visit: PT disharge plans and instructions, education on fall risks and prevention, instruct on HEP, instruct on seated heel stretch with towel assist. Patient provided verbal consent for wound photography. Picture taken of her L knee with rash on medial portion of her knee. Telephone encounter sent to Dr. Vasquez regarding her knee and picture uploaded to her chart. L knee AAROM: 0-80 degrees TU seconds, no AD. Physical therapy discharged: goals partially achieved. Functional performance at discharge - bed mobility independent, transfers independent, ambulation independent and stairs independent. Plan of care, goals, and discharge reviewed and agreed upon with patient and/or caregiver. RECOMMENDATION: Patient discharged from home health services. Instructions to include:home exercise program as directed, follow the recommended ambulation program, begin outpatient therapy on 12/01/24 and follow up with provider as scheduled See intervention summary for intervention/education details. documented in this encounterPremier Health [facility]03-25-2025 Patient's home Note* PT DISCHARGE - Ade Fajardo, PT - 11/29/2024 11:23 AM EDT SITUATION: only patient present during today's visit. patient reports the following since the last homecare visit: medications/allergies--no changes, no fall. patient reports that she is moving more and doesn'tuse her walker but will use the cane as needed. She stated that she noticed a red rash on the medial portion of her L knee that started 3 days ago. She thinks it might be from her ice. BACKGROUND: Diagnoses (reason for Home Care): L TKA patient underwent L TKA by Dr. Frannie Vasquez on 11/10/24 and returned home on 11/13/24. Weight Bearing/Precaution Changes: WBAT ASSESSMENT: Focus of visit: PT disharge plans and instructions, education on fall risks and prevention, instruct on HEP, instruct on seated heel stretch with towel assist. Patient provided verbal consent for wound photography. Picture taken of her L knee with rash on medial portion of her knee. Telephone encounter sent to Dr. Vasquez regarding her knee and picture uploaded to her chart. L knee AAROM: 0-80 degrees TU seconds, no AD. Physical therapy discharged: goals partially achieved. Functional performance at discharge - bed mobility independent, transfers independent, ambulation independent and stairs independent. Plan of care, goals, and discharge reviewed and agreed upon with patient and/or caregiver. RECOMMENDATION: Patient discharged from home health services. Instructions to include:home exercise program as directed, follow the recommended ambulation program, begin outpatient therapy on 12/01/24 and follow up with provider as scheduled See intervention summary for intervention/education details. T [facility] Work Phone: 1(723) 617-426303-24-2025 Telephone encounter Note* Telephone Encounter - Jaime Crandall - 11/28/2024 1:25 PM EDT Transitional Care Management (TCM) [facility] Monitoring Program Provider Action / FYI: na SUMMARY: Outreach type: INITIAL OUTREACH Discharge Network Status: In-Network [facility] Patient discharged from [place] on 11.13.24. Admitted for S/P total knee arthroplasty, left. . Contact made with patient: No - 2nd unsuccessful attempt - end outreach and close encounter. Jaime Crandall November 28, 2024 1:26 PM [facility]03-24-2025 Miscellaneous Notes* Telephone Encounter - Jaime Crandall - 11/28/2024 1:25 PM EDT Transitional Care Management (TCM) [facility] Monitoring Program Provider Action / FYI: na SUMMARY: Outreach type: INITIAL OUTREACH Discharge Network Status: In-Network Discharge Source of Patient: [facility] TCM Discharge Report Patient discharged from [place] on 11.13.24. Admitted for S/P total knee arthroplasty, left. . Contact made with patient: No - 2nd unsuccessful attempt - end outreach and close encounter. Jaime Crandall November 28, 2024 1:26 PM documented in this encounterPremier Health [facility]03-20-2025 Telephone encounter Note * Telephone Encounter - Rosaura Pratt - 11/24/2024 4:00 PM EDT Transitional Care Management (TCM) [facility] Monitoring [facility] Provider Action / FYI: N/A SUMMARY: Outreach type: INITIAL OUTREACH Discharge Network Status: In-Network Discharge Source of Patient: [facility] TCM Discharge Report Patient discharged from [place] on 11/13/24. Admitted for S/P total knee arthroplasty, left. Contact made with patient: No - next outreach attempt will be on next business day. Rosaura Pratt November 24, 2024 4:03 PM [facility]03-20-2025 Miscellaneous Notes* Telephone Encounter - Rosaura Pratt - 11/24/2024 4:00 PM EDT Transitional Care Management (TCM) [facility] Monitoring [facility] Provider Action / FYI: N/A SUMMARY: Outreach type: INITIAL OUTREACH Discharge Network Status: In-Network Discharge Source of Patient: [facility] TCM Discharge Report Patient discharged from [place] on 11/13/24. Admitted for S/P total knee arthroplasty, left. Contact made with patient: No - next outreach attempt will be on next business day. Rosaura Pratt November 24, 2024 4:03 PM documented in this encounterPremier Health [facility]03-20-2025 Miscellaneous Notes* PT ROUTINE/REASSESSMENT/RECERT/CASE MGMT - Margaux Johns, PT - 11/24/2024 2:36 PM EDT SITUATION: only patient present during today's visit. patient reports the following since the last homecare visit: medications/allergies--no changes, no fall. patient reports she was in to see Andreea at Dr Vasquez's office today. she told me I'm not bending enough but I pretty much knew thatShe also gave her a refill of the Meloxicam to reduce the edema and some tubigrip to start wearing BACKGROUND: Diagnoses (reason for Home Care): LTKR Weight Bearing/Precaution Changes: no changes ASSESSMENT: . performed and progressed ROM and strength ex for HEP. PROM- 69 PROM 72. Encouraged more walking with the walker and trying to create a consistent heel toe pattern and reinforce the flexion . Plan of care, goals, and visit frequency reviewed and agreed upon with patient and/or caregiver. Current Discharge Plan: outpatient rehab Anticipate discharge by 11/29/24 RECOMMENDATION: Next visit to focus on ROM , d/c from home care See intervention summary for intervention/education details. documented in this encounterPremier Health [facility]03-20-2025 Patient's home Note* PT ROUTINE/REASSESSMENT/RECERT/CASE ALLYN - Margaux Johns, PT - 11/24/2024 2:36 PM EDT SITUATION: only patient present during today's visit. patient reports the following since the last homecare visit: medications/allergies--no changes, no fall. patient reports she was in to see Andreea at Dr Vasquez's office today. she told me I'm not bending enough but I pretty much knew thatShe also gave her a refill of the Meloxicam to reduce the edema and some tubigrip to start wearing BACKGROUND: Diagnoses (reason for Home Care): LTKR Weight Bearing/Precaution Changes: no changes ASSESSMENT: . performed and progressed ROM and strength ex for HEP. PROM- 69 PROM 72. Encouraged more walking with the walker and trying to create a consistent heel toe pattern and reinforce the flexion . Plan of care, goals, and visit frequency reviewed and agreed upon with patient and/or caregiver. Current Discharge Plan: outpatient rehab Anticipate discharge by 11/29/24 RECOMMENDATION: Next visit to focus on ROM , d/c from home care See intervention summary for intervention/education details. [facility] Work Phone: 1(227) 611-715503-20-2025 NoteC[facility]03-20-2025 History of Present illness Narrative* Keysha Villagran RN - 11/24/2024 9:38 AM EDT Post-op Office Visit Mariam Minaya 64 year old November 24, 2024 9:38 AM Surgery Date: 11/10/24 History: Mariam Minaya is now 2 weeks out from Left TKA. Post-operative course has been without complication. No readmission/complications Subjective: Patient reports 4/10 pain. Overall is doing well. Oxycodone opioid pain medication Objective: Ambulates with cane Incision well-approximated, no drainage, normal richard-incisional erythema ROM 0 - 70 Distally DP/PT palpable Distally S/S/SP/DP/T intact at baseline Distally DF/EHL/PF intact at baseline Negative dee dee/calf tenderness Xrays: Well-positioned total knee replacement in appropriate alignment with no evidence of loosening. Assessment and Plan: Mariam Minaya is here for a first post-op appointment, overall doing well. -continued ice, rest, and use of non-narcotic analgesia as needed -wean off ambulatory aids -discussed home exercises and therapy -WBAT on operative extremity -continue ankle pumps and dvt ppx through 4 weeks -discussed driving requirement: 4 weeks post-op, off narcotic pain medication, adequate brake time -will see back at 6 week appointment for clinical exam -discussed red flag symptoms of acutely increasing pain, new erythema, new swelling, drainage, shortness of breath Keysha Villagran RN (under Nathaniel Vasquez MD) Orthopaedic Surgery documented in this encounterPremier Health [facility]03-20-2025 History of Present illness Narrative* Laly Nelson CT - 11/24/2024 9:30 AM EDT Radiology Service Progress Note PATIENT NAME: Mariam Minaya DATE OF SERVICE: November 24, 2024 TIME: 9:42 AM PATIENT IDENTITY VERIFICATION COMPLETED USING TWO (2) IDENTIFIERS: Name and Date of confirmedby patient verbally. FALL SCREENING: Has the patient had 2 falls in the last year or 1 fall with injury or currently using an Ambulatory Assistive Device (Walker, Cane, Wheelchair, Crutches, etc.)? Yes, Patient High Riskfor Falls What interventions were put in place to prevent falls during this visit? Offered Assistance with Transfers/Clothing, Instructed Patient to Remain Seated (Not on Exam Table) Until Exam, and Increased Observations by Caregivers PATIENT GENDER DATA: Assigned female at . status: : No status:NO. PATIENT RELEVANT IMPLANT DATA REVIEWED: Not Applicable PATIENT PRESENTS WITH AN IMPLANTABLE OR ATTACHED ADMINISTRATIVE SUPPORT ASSISTANT: No RADIOLOGY DEPARTMENT: General X-ray: Exam(s) Completed: Lower Extremity X- Ray(s): Knee, AP / Lat / Merchant Left and Wt. Bearing PERIPHERAL IV DATA: Not applicable SIGNED BY: DANIELLE Pagan November 24, 2024 9:42 AM documented in this encounterPrem[facility]-20-[facility]25 NoteHNO ID: [id number] Author: LALY NELSON CT Service: Radiology Author Type: Technologist Type: Progress Notes Filed: 11/24/2024 09:43 Note Text: Radiology Service Progress Note PATIENT NAME: Mariam Minaya DATE OF SERVICE: November 24, 2024 TIME: 9:42 AM PATIENT IDENTITY VERIFICATION COMPLETED USING TWO (2) IDENTIFIERS: Name and Date of confirmed by patient verbally. FALL SCREENING: Has the patient had 2 falls in the last year or 1 fall with injury or currently using an Ambulatory Assistive Device (Walker, Cane, Wheelchair, Crutches, etc.)? Yes, Patient High Risk for Falls What interventions were put in place to prevent falls during this visit? Offered Assistance with Transfers/Clothing, Instructed Patient to Remain Seated (Not on Exam Table) Until Exam, and Increased Observations by Caregivers PATIENT GENDER DATA: Assigned female at . status: : No status: NO. PATIENT RELEVANT IMPLANT DATA REVIEWED: Not Applicable PATIENT PRESENTS WITH AN IMPLANTABLE OR ATTACHED ADMINISTRATIVE SUPPORT ASSISTANT: No RADIOLOGY DEPARTMENT: General X-ray: Exam(s) Completed: Lower Extremity X-Ray(s): Knee, AP / Lat / Merchant Left and Wt. Bearing PERIPHERAL IV DATA: Not applicable SIGNED BY: DANIELLE Pagan November 24, 2024 9:42 [id number] Miscellaneous Notes* PT ROUTINE/REASSESSMENT/RECERT/CASE Margaux Saavedra, PT - 11/21/2024 3:23 PM EDT SITUATION: only patient present during today's visit. patient reports the following since the last homecare visit: medications/allergies--no changes, no fall. patient reports she is really hurting today. Trying to really work on her gait pattern . PT happened to fall at the end of her pain pill schedule today BACKGROUND: Diagnoses (reason for Home Care): LTKR Weight Bearing/Precaution Changes: no changes ASSESSMENT: . performed and progressed ROM and strength ex for HEP. PROM 50 pt is gradually losig ROM. discussed possible reasons for this. Pt reports that she is doing everything for herself and her 12 dogs. i took them out to the back of the yard yesterday , I think that may have been too much Advised her to back off , no more walking outside. use the walker more than the cane and time her exercises ~1hr after her pain meds Plan of care, goals, and visit frequency reviewed and agreed upon with patient and/or caregiver. Current Discharge Plan: outpatient rehab Anticipate discharge by 11/29/24 RECOMMENDATION: Next visit to focus on ROM and step training See intervention summary for intervention/education details. documented in this encounterPrem[facility]03-17-[facility]25 Patient's home Note* PT ROUTINE/REASSESSMENT/RECERT/CASE MGMT - Margaux Johns, PT - 11/21/2024 3:23 PM EDT SITUATION: only patient present during today's visit. patient reports the following since the last homecare visit: medications/allergies--no changes, no fall. patient reports she is really hurting today. Trying to really work on her gait pattern . PT happened to fall at the end of her pain pill schedule today BACKGROUND: Diagnoses (reason for Home Care): LTKR Weight Bearing/Precaution Changes: no changes ASSESSMENT: . performed and progressed ROM and strength ex for HEP. PROM 50 pt is gradually losig ROM. discussed possible reasons for this. Pt reports that she is doing everything for herself and her 12 dogs. i took them out to the back of the yard yesterday , I think that may have been too much Advised her to back off , no more walking outside. use the walker more than the cane and time her exercises ~1hr after her pain meds Plan of care, goals, and visit frequency reviewed and agreed upon with patient and/or caregiver. Current Discharge Plan: outpatient rehab Anticipate discharge by 11/29/24 RECOMMENDATION: Next visit to focus on ROM and step training See intervention summary for intervention/education details. [facility] Work Phone: 1(344) 183-756103-14-2025 Telephone encounter Note* Telephone Encounter - Marissa Jimenez - 11/18/2024 3:50 PM EDT Prescription Refill Information The patient has been identified by name and date of : Yes Caregiver verified no other encounters exist for this prescription request: Yes Caregiver confirmed with patient/requestor that no other refills are due, in the near future, with this provider at this time: Yes The last office visit in the department: n/a Does the patient have a future office visit with this provider/department: Yes Requested Prescriptions Pending Prescriptions Disp Refills oxyCODONE IR (ROXICODONE) 5 mg immediate release tablet 56 tablet 0 Sig: Take 1-2 tablets by mouth every 6 hours as needed for pain for up to 7 days. Marissa Tony November 18, 2024 3:51 PM [facility]03-14-2025 Miscellaneous Notes* Telephone Encounter - Marissa Jimenez - 11/18/2024 3:50 PM EDT Prescription Refill Information The patient has been identified by name and date of : Yes Caregiver verified no other encounters exist for this prescription request: Yes Caregiver confirmed with patient/requestor that no other refills are due, in the near future, with this provider at this time: Yes The last office visit in the department: n/a Does the patient have a future office visit with this provider/department: Yes Requested Prescriptions Pending Prescriptions Disp Refills oxyCODONE IR (ROXICODONE) 5 mg immediate release tablet 56 tablet 0 Sig: Take 1-2 tablets by mouth every 6 hours as needed for pain for up to 7 days. Marissa Jimenez November 18, 2024 3:51 PM documented in this encounterPrem[facility]03-13-2025 Miscellaneous Notes* PT ROUTINE/REASSESSMENT/RECERT/CASE MGMT - Ariane Guerrero PTA - 11/17/2024 11:37 AM EDT SITUATION: only patient present during today's visit. patient reports the following since the last homecare visit: medications/allergies--no changes, no fall. patient reports she is really hurting today. Thinksshe over did it yesterday. BACKGROUND: Diagnoses (reason for Home Care): LTKR Weight Bearing/Precaution Changes: no changes ASSESSMENT: Focus of visit bandage removal. no concerns. With patients permission, picture obtained and uploaded to chart. performed and progressed ROM and strength ex for HEP. PROM 60. Plan of care, goals, and visit frequency reviewed and agreed upon with patient and/or caregiver. Current Discharge Plan: outpatient rehab Anticipate discharge by 11/29/24 RECOMMENDATION: Next visit to focus on ROM and step training See intervention summary for intervention/education details. documented in this encounterPrem[facility]03-13-[facility]25 Patient's home Note* PT ROUTINE/REASSESSMENT/RECERT/CASE MGMT - Ariane Guerrero PTA - 11/17/2024 11:37 AM EDT SITUATION: only patient present during today's visit. patient reports the following since the last homecare visit: medications/allergies--no changes, no fall. patient reports she is really hurting today. Thinksshe over did it yesterday. BACKGROUND: Diagnoses (reason for Home Care): LTKR Weight Bearing/Precaution Changes: no changes ASSESSMENT: Focus of visit bandage removal. no concerns. With patients permission, picture obtained and uploaded to chart. performed and progressed ROM and strength ex for HEP. PROM 60. Plan of care, goals, and visit frequency reviewed and agreed upon with patient and/or caregiver. Current Discharge Plan: outpatient rehab Anticipate discharge by 11/29/24 RECOMMENDATION: Next visit to focus on ROM and step training See intervention summary for intervention/education details. [facility] Work Phone: [phone]) 208-514903-11-2025 Miscellaneous Notes* CARE COORDINATION - Swathi Harper RN - 11/15/2024 3:22 PM EDT Medication review completed. No ineffective drug therapy, significant side effects, significant drug interactions, duplicate drug therapy, or noncompliance with drug therapy noted. Swathi Harper RN documented in this encounterPrem[facility]03-11-2025 Patient's home Note* CARE COORDINATION - Swathi Harper RN - 11/15/2024 3:22 PM EDT Medication review completed. No ineffective drug therapy, significant side effects, significant drug interactions, duplicate drug therapy, or noncompliance with drug therapy noted. Swathi Harper RN [facility] Work Phone: 1(871) 948-702203-11-2025 Telephone encounter Note* Telephone Encounter - Therese Neri LSW - 11/15/2024 10:12 AM EDT 11/15/24 SALES VICE PRESIDENT called the pt. regarding SALES VICE PRESIDENT visit and community resources. SALES VICE PRESIDENT discussed with the pt. wanting the Living Will and Medical POA forms. The pt. stated she does want them. SALES VICE PRESIDENT asked the pt. if she needed help to complete the forms and she stated she was going to complete them. She wanted SALES VICE PRESIDENT to mail her the forms and did not feel SALES VICE PRESIDENT visit was needed. SALES VICE PRESIDENT discussed with the pt. that she needs the forms either witnessed by two people that are not family members or have them notarized. SALES VICE PRESIDENT asked the pt. how she was managing regarding more help in the home. The pt. stated she lives withher but they are not together. SALES VICE PRESIDENT asked the pt. about getting her groceries and she statedshe stocked up on groceries. SALES VICE PRESIDENT asked the pt. if she had needed transportation to her medical appointments and she stated the lady that lives close to her drives for [employer] and she can hire her. SALES VICE PRESIDENT educated on transportation in [facility]. The pt. stated her appointmentsare in [place] and she is planning to be able to drive in two weeks. SALES VICE PRESIDENT asked the pt. how she was ma naging financially and she denied any financial stress. SALES VICE PRESIDENT provided the pt. with her name and phone number to call SALES VICE PRESIDENT with any needs. 11/15/24 SALES VICE PRESIDENT mailed the pt. the Living Will and Medical POA forms and About Advanced Directives pamphlet. Thank You, [facility] Work Phone: [phone]) 744-119503-11-2025 Miscellaneous Notes* Telephone Encounter - Therese Neri LSW - 11/15/2024 10:12 AM EDT 11/15/24 SALES VICE PRESIDENT called the pt. regarding SALES VICE PRESIDENT visit and community resources. SALES VICE PRESIDENT discussed with the pt. wanting the Living Will and Medical POA forms. The pt. stated she does want them. SALES VICE PRESIDENT asked the pt. if she needed help to complete the forms and she stated she was going to complete them. She wanted SALES VICE PRESIDENT to mail her the forms and did not feel SALES VICE PRESIDENT visit was needed. SALES VICE PRESIDENT discussed with the pt. that she needs the forms either witnessed by two people that are not family members or have them notarized. SALES VICE PRESIDENT asked the pt. how she was managing regarding more help in the home. The pt. stated she lives withher but they are not together. SALES VICE PRESIDENT asked the pt. about getting her groceries and she statedshe stocked up on groceries. SALES VICE PRESIDENT asked the pt. if she had needed transportation to her medical appointments and she stated the lady that lives close to her drives for [employer] and she can hire her. SALES VICE PRESIDENT educated on transportation in [facility]. The pt. stated her appointmentsare in [place] and she is planning to be able to drive in two weeks. SALES VICE PRESIDENT asked the pt. how she was ma naging financially and she denied any financial stress. SALES VICE PRESIDENT provided the pt. with her name and phone number to call SALES VICE PRESIDENT with any needs. 11/15/24 SALES VICE PRESIDENT mailed the pt. the Living Will and Medical POA forms and About Advanced Directives pamphlet. Thank You, documented in this encounterPrem[facility]03-11-2025 Miscellaneous Notes* HH CARE COORDINATION - Therese Neri LSW - 11/15/2024 9:45 AM EDT 11/15/24 9:49 AM - 9:55 AM SALES VICE PRESIDENT called the pt. regarding SALES VICE PRESIDENT visit and community resources. SALES VICE PRESIDENT discussed with the pt. wanting the Living Will and Medical POA forms. The pt. stated she does want them. SALES VICE PRESIDENT asked the pt. if she needed help to complete the forms and she stated she was going to complete them. She wanted SALES VICE PRESIDENT to mail her the forms and did not feel SALES VICE PRESIDENT visit was needed. SALES VICE PRESIDENT discussed withthe pt. that she needs the forms either witnessed by two people that are not family members or havethem notarized. SALES VICE PRESIDENT asked the pt. how she was managing regarding more help in the home. The pt. stated she lives with her but they are not together. SALES VICE PRESIDENT asked the pt. about getting her groceries and she stated she stocked up on groceries. SALES VICE PRESIDENT asked the pt. if she had needed transportation to her medical appointments and she stated the lady that lives close to her drives for [employer] and she can hire her. SALES VICE PRESIDENT educated on transportation in [facility]. The pt. stated her appointments are in [place] and she is planning to be able to drive in two weeks. SALES VICE PRESIDENT asked thept. how she was managing financially and she denied any financial stress. SALES VICE PRESIDENT provided the pt. withher name and phone number to call SALES VICE PRESIDENT with any needs. 11/15/24 SALES VICE PRESIDENT mailed the pt. the Living Will and Medical POA forms and About Advanced Directives pamphlet. 11/15/[address] Nathaniel Vasquez - SALES VICE PRESIDENT phone call with the pt. and that SALES VICE PRESIDENT mailed the pt. the Living Will and Medical POA forms and About Advanced Directives pamphlet. documented in this encounterPrem[facility]03-11-2025 Patient's home Note* HH CARE COORDINATION - Therese Neri LSW - 11/15/2024 9:45 AM EDT 11/15/24 9:49 AM - 9:55 AM SALES VICE PRESIDENT called the pt. regarding SALES VICE PRESIDENT visit and community resources. SALES VICE PRESIDENT discussed with the pt. wanting the Living Will and Medical POA forms. The pt. stated she does want them. SALES VICE PRESIDENT asked the pt. if she needed help to complete the forms and she stated she was going to complete them. She wanted SALES VICE PRESIDENT to mail her the forms and did not feel SALES VICE PRESIDENT visit was needed. SALES VICE PRESIDENT discussed withthe pt. that she needs the forms either witnessed by two people that are not family members or havethem notarized. SALES VICE PRESIDENT asked the pt. how she was managing regarding more help in the home. The pt. stated she lives with her but they are not together. SALES VICE PRESIDENT asked the pt. about getting her groceries and she stated she stocked up on groceries. SALES VICE PRESIDENT asked the pt. if she had needed transportation to her medical appointments and she stated the lady that lives close to her drives for [employer] and she can hire her. SALES VICE PRESIDENT educated on transportation in [facility]. The pt. stated her appointments are in [place] and she is planning to be able to drive in two weeks. SALES VICE PRESIDENT asked thept. how she was managing financially and she denied any financial stress. SALES VICE PRESIDENT provided the pt. withher name and phone number to call SALES VICE PRESIDENT with any needs. 11/15/24 SALES VICE PRESIDENT mailed the pt. the Living Will and Medical POA forms and About Advanced Directives pamphlet. 11/15/[address] V[address] Nathaniel Vasquez - SALES VICE PRESIDENT phone call with the pt. and that SALES VICE PRESIDENT mailed the pt. the Living Will and Medical POA forms and About Advanced Directives pamphlet. [facility] Work Phone: [phone]) [phone] Telephone encounter Note* Telephone Encounter - Salty - 11/15/2024 1:54 AM EDT Record ID: [id number] Patient name: Mariam Minaya Date: November 14, 2024 - 08:54 Administered by: SALTY Protocol: -> Great! Now we are in a secure chat environment. Protecting your health information is important to us. Ok, let's get started. Please verify your name and date of . Please click on the button with your first name. -> Mariam Got it. On to the next question... Select the button with your last name. -> Lanny Got it, thank you. Please enter your date of in MM/DD/YYYY format:(e.g., 09/25/1969 for Sep 25, 1969) -> 1960 Thank you for verifying your information. I'd like to ask you a few questions about how your recovery is going. Since leaving the hospital, do you have any new or worsening symptoms? -> No I'm glad to hear that. We encourage a follow-up appointment [facility] a [facility]. It seems you have a follow up appointment scheduled, are you able to attend? -> Yes [facility]03-11-2025 Miscellaneous Notes* Telephone Encounter - Salty - 11/15/2024 1:54 AM EDT Record ID: [id number] Patient name: Mariam Minaya Date: November 14, 2024 - 08:54 Administered by: SALTY Protocol: -> Great! Now we are in a secure chat environment. Protecting your health information is important to us. Ok, let's get started. Please verify your name and date of . Please click on the button with your first name. -> Mariam Got it. On to the next question... Select the button with your last name. -> Lanny Got it, thank you. Please enter your date of in MM/DD/YYYY format:(e.g., 09/25/1969 for Sep 25, 1969) -> 1960 Thank you for verifying your information. I'd like to ask you a few questions about how your recovery is going. Since leaving the hospital, do you have any new or worsening symptoms? -> No I'm glad to hear that. We encourage a follow-up appointment with a physician [facility]. It seems you have a follow up appointment scheduled, are you able to attend? -> Yes documented in this encounterPrem[facility]03-10-2025 Miscellaneous Notes* PT SOC/MARCIAL/FOLLOW UP/OTHER - Cindy Lorenzo, PT - 11/14/2024 1:37 PM EDT SITUATION: only patient present during today's visit. patient underwent L TKA by Dr. Frannie Vasquez on 11/10/24 andreturned home on 11/13/24. The patient has 12 dogs that she cares for. She lives on the first floor of her home while her resides on the second floor. The patient states that her will not provide assistance to either her or the dogs during her recovery. BACKGROUND: Diagnoses (reason for Home Care): L TKA Advance Directives: Patient does not have advance directives. Patient/Caregiver requested Advance Directive information. Past Medical History: Vitamin D Deficiency Overweight (Bmi 25.0-29.9) Chronic Bilateral Low Back Pain With Sciatica Gerd (Gastroesophageal Reflux Disease) Postoperative Hypothyroidism Thyroid Cancer (Hcc) Sjogren's Syndrome (Hcc) Ra (Rheumatoid Arthritis) (Hcc) Psoriasis With Arthropathy (Hcc) Primary Fibromyalgia Syndrome Neck Pain Insomnia Chronic Kidney Insufficiency, Stage 3 (Moderate) (Formerly [facility]) Psoriasis Encounter for Gynecological Examination Constipation Encounter for Screening Mammogram for Breast Cancer Encounter for Screening for Diabetes Mellitus Sob (Shortness of Breath) Osteopenia Seropositive Rheumatoid Arthritis (Hcc) 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 Reviewed and explained homecare services. Plan of care, goals, and visit frequency developed, reviewed, and agreed upon with patient and/or caregiver. Patient Goal: walking without a walker Patient will benefit from continued physical therapy to address the following deficits: strength, balance, gait, left knee joint ROM, transfers and bed mobility. Current Discharge Plan: outpatient rehab. Anticipate discharge by 11/30/24. RECOMMENDATION: Next visit to focus on review HEP; consider adding SAQ and supine hip abduction. Agreeable to PT; declining OT. See intervention summary for intervention/education details. documented in this encounterPrem[facility]03-10-2025 Patient's home Note* HH PT SOC/MARCIAL/FOLLOW UP/OTHER - Cinyd Lorenzo PT - 11/14/2024 1:37 PM EDT SITUATION: only patient present during today's visit. patient underwent L TKA by Dr. Frannie Vasquez on 11/10/24 andreturned home on 11/13/24. The patient has 12 dogs that she cares for. She lives on the first floor of her home while her resides on the second floor. The patient states that her will not provide assistance to either her or the dogs during her recovery. BACKGROUND: Diagnoses (reason for Home Care): L TKA Advance Directives: Patient does not have advance directives. Patient/Caregiver requested Advance Directive information. Past Medical History: Vitamin D Deficiency Overweight (Bmi 25.0-29.9) Chronic Bilateral Low Back Pain With Sciatica Gerd (Gastroesophageal Reflux Disease) Postoperative Hypothyroidism Thyroid Cancer (Hcc) Sjogren's Syndrome (Hcc) Ra (Rheumatoid Arthritis) (Hcc) Psoriasis With Arthropathy (Hcc) Primary Fibromyalgia Syndrome Neck Pain Insomnia Chronic Kidney Insufficiency, Stage 3 (Moderate) ([facility]ly [facility]) Psoriasis Encounter for Gynecological Examination Constipation Encounter for Screening Mammogram for Breast Cancer Encounter for Screening for Diabetes Mellitus Sob (Shortness of Breath) Osteopenia Seropositive Rheumatoid Arthritis (Hcc) 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 Reviewed and explained homecare services. Plan of care, goals, and visit frequency developed, reviewed, and agreed upon with patient and/or caregiver. Patient Goal: walking without a walker Patient will benefit from continued physical therapy to address the following deficits: strength, balance, gait, left knee joint ROM, transfers and bed mobility. Current Discharge Plan: outpatient rehab. Anticipate discharge by 11/30/24. RECOMMENDATION: Next visit to focus on review HEP; consider adding SAQ and supine hip abduction. Agreeable to PT; declining OT. See intervention summary for intervention/education details. [facility] Work Phone: [phone] [id number] NoteHNO ID: [id number] Author: MAYKEL GOVEA MD Service: General Internal Medicine Author Type: Physician Type: Progress Notes Filed: 11/13/2024 09:15 Note Text: INPATIENT PROGRESS NOTES Patient Name: Mariam Minaya DATE of SERVICE: 11/13/2024 TIME of SERVICE: 9:05 AM PRIMARY SERVICE: medicine INTERVAL HPI: Uneventful night, no n/v No lightheadedness ASSESSMENT AND PLAN: Osteoarthritis, status post left total knee arthroplasty, DVT prophylaxis with aspirin 81 mg twice a day RA continue Plaquenil Postop hypotension resolved GERD continue PPI Chronic pain she is on gabapentin hypothyroidism currently on Synthroid discharge today PERTINENT ROS: All other reviewed and negative other than HPI. MEDICATIONS: Current Facility-Administered Medications Medication Dose Route Frequency phentermine-topiramate ER 15-92 mg CM24 1 capsule (QSYMIA) 1 capsule ORAL DAILY gabapentin 300 mg cap(s) (NEURONTIN) 300 mg ORAL TID levothyroxine 112 mcg tab(s) (SYNTHROID) 112 mcg ORAL DAILY NaCl 0.9% iv flush bag 20 mL INTRAVENOUS PRN HYDROmorphone 0.4 mg injection (DILAUDID) 0.4 mg INTRAVENOUS q 4 H PRN acetaminophen 1,000 mg tab(s) (TYLENOL) 1,000 mg ORAL q 8 H ondansetron orally disintegrating 4 mg tab(s) (ZOFRAN ODT) 4 mg ORAL q 6 H PRN Or ondansetron (PF) 4 mg injection (ZOFRAN) 4 mg INTRAVENOUS q 6 H PRN magnesium hydroxide 400 mg/5 mL 30 mL (MOM) 30 mL ORAL DAILY PRN bisacodyl EC 10 mg tab(s) (DULCOLAX) 10 mg ORAL DAILY aluminum-magnesium hydroxide-simethicone 200-200-20 mg/5 mL 30 mL 30 mL ORAL q 2 H PRN ascorbic acid (vitamin C) 500 mg tab(s) (VITAMIN C) 500 mg ORAL BID w MEALS docusate sodium 100 mg cap(s) (COLACE) 100 mg ORAL BID senna 17.2 mg tab(s) (SENOKOT) 17.2 mg ORAL AT BEDTIME aspirin, enteric coated 81 mg tab(s) 81 mg ORAL BID pantoprazole DR 40 mg tab(s) (PROTONIX) 40 mg ORAL DAILY (6 AM) cephALEXin 500 mg cap(s) (KEFLEX) 500 mg ORAL q 6 H oxyCODONE IR 5-10 mg tab(s) (ROXICODONE) 5-10 mg ORAL q 4 H PRN PHYSICAL EXAM: Blood pressure 100/55, pulse 69, temperature 36.9 ?C (98.4 ?F), temperature source Oral, resp. rate 16, height 167.6 cm (5' 6), weight 73.7 kg (162 lb 7.7 oz), SpO2 97%. Body mass index is 26.22 kg/m?. GENERAL: Alert, no distress, cooperative LUNGS: CTAB CARDIAC: Normal S1 and S2; no rubs, murmurs, or gallops ABDOMEN: Abdomen soft, non-tender, BS normal, No masses or organomegaly EXTREMITIES: no edema, no calf tenderness CBC: Recent Labs 11/11/24 0504 WBC 11.40* RBC 3.36* HB 10.0* HCT 30.7* PLT 275 MCV 91.4 MCH 29.8 MPV 10.2 Coags: CMP: Recent Labs 11/11/24 0504 NA 137 K 4.5 CHLOR 100 CO2 27 BUN 16 CREAT 0.65 GLUC 122* CA 8.7 ANION 10 Cardiac Enzymes: Liver Function, Amylase, Lipase: No results for input(s): TPROT, ALB, ALT, AST, ALKPHOS, TBILI, AMYLASE, LIPASE, LACTATE in the last 24 hours. ABG's: No results for input(s): PH, PCO2, PO2, BE, HCO3, CO2CT, O2HB, COHB, MHGB, TEMP, PHTC, PCO2T, PO2T, O2AD in the last 24 hours. MG/PHOS: No results for input(s): MG, P in the last 24 hours. SIGNATURE: Maykel Govea [id number] NoteHNO ID: [id number] Author: BHAVANI VARGHESE RN Service: Care Management Author Type: Registered Nurse Type: Care Mgt Progress Note Filed: 11/13/2024 08:08 Note Text: CARE MANAGEMENT DISCHARGE NOTE SERVICE DATE: November 13, 2024 SERVICE TIME: 8:07 AM Admission Date: 11/10/2024 LOS: 0 days Discharge Arrangement Discharge Arrangement: Home with Home Health Services Arranged Medical Services: Skilled Home Health Care Type: Home Health Agency, Physical Therapy, Occupational Therapy Provider Name: [facility] Caregiver Assessment Caregiver is ready, willing and able to meet the patient's needs as recommended by the inter-professional team: Yes Name of Caregiver: [facility] Transportation Arrangements Transportation Arrangements: Car Date of Trip: 11/13/24 Time of Trip: 1000 Destination: Home Handoff Communication: Handoff to: Primary Care Physician, Other Caregiver Primary Care Physician Name/Phone: Dr. Robertson [phone] Other Caregiver Name/Phone: [facility] [phone] Additional Information: Discharge written for patient to go home with [facility]. Patient agreeable to discharge plan and denies needs. Friend to transport. Bedside nurse updated. SOC sent to PCP and HH. Discharge orders sent to [facility] via transitions. F2F in [facility]. Discharge Information Row Name Admission (Current) from 11/10/[address] [facility] Start of Care -- Within 24-48 hours SIGNATURE: Bhavani Varghese RN PATIENT NAME: Mariam Minaya DATE: November 13, 2024 TIME: 8:07 [id number] NoteHNO ID: [id number] Author: MORIS DIAS MD Service: Orthopaedic Surgery Author Type: Physician Type: Progress Notes Filed: 11/13/2024 06:44 Note Text: ORTHOPAEDIC SURGERY PROGRESS NOTE PATIENT NAME: Mariam Minaya A/P: 64 year old yo female POD3 s/p L TKA - Activity: WBAT LLE - Wound: Aquacel Dressing to be removed POD7 - Drain: - Antibiotics: Completing 24 hours of perioperative ancef then Duricef - Imaging: non - Pain - PO and IV breakthrough - DVT prophylaxis - SCDs, ASA 81 BID - HLIV when tolerating sufficient PO - Norman: none * Discharge planning - Await PT recs --> progressed to home PT yesterday but did not discharge due to dizziness. Improved today and wishes to go home - Dispo: anticipate DC to home on POD 3 S: Doing well, mild pain this morning in her left knee denies n/v/cp/sob VITALS: 11/12/24 1226 11/12/24 1430 11/12/24 1551 11/12/24 2334 BP: 111/62 107/62 132/71 Pulse: 71 70 78 Resp: 16 14 16 Temp: 36.8 ?C (98.2 ?F) 36.5 ?C (97.7 ?F) TempSrc: Oral Oral SpO2: 97% 99% 95% Weight: Height: Intake/Output Summary (Last 24 hours) at 11/13/2024 0644 Last data filed at 11/13/2024 0030 Gross per 24 hour Intake 120 ml Output 1850 ml Net -1730 ml Physical Exam: * Gen: awake, alert, converses appropriately, NAD * Resp: Unlabored on RA, no wheeze * LLE: - dressing c,d,i - 5/ PF, DF, EHL - SILT L4-S1 - 2+ PT pulse, toes wwp Labs: CBC: Recent Labs 11/11/24 0504 WBC 11.40* HB 10.0* HCT 30.7* PLT 275 MCV 91.4 RDWCV 12.6 COAG: No results for input(s): APTT, INR in the last 168 hours. BMP: Recent Labs 11/11/24 0504 GLUC 122* NA 137 K 4.5 CHLOR 100 CO2 27 ANION 10 BUN 16 CREAT 0.65 CHEM: Recent Labs 11/11/24 0504 CA 8.7 URINALYSIS:No results for input(s): PH, SPGR, UGLUC, UBILI, UKET, UHB, UPROT, UROBIL, UWBC, SSA in the last 168 hours. Invalid input(s): SUREKHA Dias, [id number] NoteHNO ID: [id number] Author: MAYKEL GOVEA MD Service: General Internal Medicine Author Type: Physician Type: Progress Notes Filed: 11/12/2024 08:57 Note Text: INPATIENT PROGRESS NOTES Patient Name: Mariam Minaya DATE of SERVICE: 11/12/2024 TIME of SERVICE: 8:55 AM PRIMARY SERVICE: medicine INTERVAL HPI: Uneventful night, no n/v No lightheadedness Received iv fluid last afternoon for low BP ASSESSMENT AND PLAN: Osteoarthritis, status post left total knee arthroplasty, DVT prophylaxis with aspirin 81 mg twice a day RA continue Plaquenil Postop hypotension resolved GERD continue PPI Chronic pain she is on gabapentin hypothyroidism currently on Synthroid discharge Home going med reviewed. PERTINENT ROS: All other reviewed and negative other than HPI. MEDICATIONS: Current Facility-Administered Medications Medication Dose Route Frequency phentermine-topiramate ER 15-92 mg CM24 1 capsule (QSYMIA) 1 capsule ORAL DAILY gabapentin 300 mg cap(s) (NEURONTIN) 300 mg ORAL TID levothyroxine 112 mcg tab(s) (SYNTHROID) 112 mcg ORAL DAILY NaCl 0.9% iv flush bag 20 mL INTRAVENOUS PRN oxyCODONE IR 5-10 mg tab(s) (ROXICODONE) 5-10 mg ORAL q 3 H PRN HYDROmorphone 0.4 mg injection (DILAUDID) 0.4 mg INTRAVENOUS q 4 H PRN acetaminophen 1,000 mg tab(s) (TYLENOL) 1,000 mg ORAL q 8 H ondansetron orally disintegrating 4 mg tab(s) (ZOFRAN ODT) 4 mg ORAL q 6 H PRN Or ondansetron (PF) 4 mg injection (ZOFRAN) 4 mg INTRAVENOUS q 6 H PRN magnesium hydroxide 400 mg/5 mL 30 mL (MOM) 30 mL ORAL DAILY PRN bisacodyl EC 10 mg tab(s) (DULCOLAX) 10 mg ORAL DAILY aluminum-magnesium hydroxide-simethicone 200-200-20 mg/5 mL 30 mL 30 mL ORAL q 2 H PRN ascorbic acid (vitamin C) 500 mg tab(s) (VITAMIN C) 500 mg ORAL BID w MEALS docusate sodium 100 mg cap(s) (COLACE) 100 mg ORAL BID senna 17.2 mg tab(s) (SENOKOT) 17.2 mg ORAL AT BEDTIME aspirin, enteric coated 81 mg tab(s) 81 mg ORAL BID pantoprazole DR 40 mg tab(s) (PROTONIX) 40 mg ORAL DAILY (6 AM) cephALEXin 500 mg cap(s) (KEFLEX) 500 mg ORAL q 6 H PHYSICAL EXAM: Blood pressure 102/58, pulse 62, temperature 36.6 ?C (97.9 ?F), temperature source Oral, resp. rate 14, height 167.6 cm (5' 6), weight 73.7 kg (162 lb 7.7 oz), SpO2 96%. Body mass index is 26.22 kg/m?. GENERAL: Alert, no distress, cooperative LUNGS: CTAB CARDIAC: Normal S1 and S2; no rubs, murmurs, or gallops ABDOMEN: Abdomen soft, non-tender, BS normal, No masses or organomegaly EXTREMITIES: no edema, no calf tenderness CBC: Recent Labs 11/11/24 0504 WBC 11.40* RBC 3.36* HB 10.0* HCT 30.7* PLT 275 MCV 91.4 MCH 29.8 MPV 10.2 Coags: CMP: Recent Labs 11/11/24 0504 NA 137 K 4.5 CHLOR 100 CO2 27 BUN 16 CREAT 0.65 GLUC 122* CA 8.7 ANION 10 Cardiac Enzymes: Liver Function, Amylase, Lipase: No results for input(s): TPROT, ALB, ALT, AST, ALKPHOS, TBILI, AMYLASE, LIPASE, LACTATE in the last 24 hours. ABG's: No results for input(s): PH, PCO2, PO2, BE, HCO3, CO2CT, O2HB, COHB, MHGB, TEMP, PHTC, PCO2T, PO2T, O2AD in the last 24 hours. MG/PHOS: No results for input(s): MG, P in the last 24 hours. SIGNATURE: Maykel Govea [id number] NoteHNO ID: [id number] Author: BHAVANI VARGHESE RN Service: Care Management Author Type: Registered Nurse Type: Care Mgt Progress Note Filed: 11/12/2024 08:45 Note Text: CARE MANAGEMENT DISCHARGE NOTE SERVICE DATE: November 12, 2024 SERVICE TIME: 8:44 AM Admission Date: 11/10/2024 LOS: 0 days Discharge Arrangement Discharge Arrangement: Home with Home Health Services Arranged Medical Services: Skilled Home Health Care Type: Home Health Agency, Physical Therapy, Occupational Therapy Provider Name: [facility] Caregiver Assessment Caregiver is ready, willing and able to meet the patient's needs as recommended by the inter-professional team: Yes Name of Caregiver: [facility] Transportation Arrangements Transportation Arrangements: Car Date of Trip: 11/12/24 Time of Trip: 1000 Destination: Home Handoff Communication: Handoff to: Primary Care Physician, Other Caregiver Primary Care Physician Name/Phone: Dr. Robertson [phone] Other Caregiver Name/Phone: [facility] [phone] Additional Information: Discharge written for patient to go Home with [facility]. Patient agreeable to discharge plan and denies needs. Friend to transport. Bedside nurse updated. SOC sent to PCP and HHC. Discharge orders sent to [facility] via transitions. F2F in [place]. Discharge Information Row Name Admission (Current) from 11/10/[address] [facility] Start of Care -- Within 24-48 hours SIGNATURE: Bhavani Varghese RN PATIENT NAME: Mariam Minaya DATE: November 12, 2024 TIME: 8:44 [id number] NoteHNO ID: [id number] Author: MORIS DIAS MD Service: Orthopaedic Surgery Author Type: Physician Type: Progress Notes Filed: 11/12/2024 08:09 Note Text: ORTHOPAEDIC SURGERY PROGRESS NOTE PATIENT NAME: Mariam Minaya A/P: 64 year old yo female POD2 s/p L TKA - Activity: WBAT LLE - Wound: Aquacel Dressing to be removed POD7 - Drain: - Antibiotics: Completing 24 hours of perioperative ancef then Duricef - Imaging: non - Pain - PO and IV breakthrough - DVT prophylaxis - SCDs, ASA 81 BID - HLIV when tolerating sufficient PO - Norman: none * Discharge planning - Await PT recs --> SNF though patient wishes to progress to home and is motivated to do so - Dispo: anticipate DC to home on POD 1/2 S: Doing well, mild pain this morning in her left knee denies n/v/cp/sob VITALS: 11/11/24 1628 11/11/24 1955 11/11/24 2327 11/12/24 0332 BP: (!) 99/47 123/58 140/77 129/75 Pulse: 68 75 79 74 Resp: 20 16 16 18 Temp: 36.6 ?C (97.9 ?F) 37.1 ?C (98.8 ?F) 36.6 ?C (97.9 ?F) 37.1 ?C (98.8 ?F) TempSrc: Oral Oral Oral Oral SpO2: 99% 94% 94% 99% Weight: Height: Intake/Output Summary (Last 24 hours) at 11/12/2024 0809 Last data filed at 11/12/2024 0431 Gross per 24 hour Intake 1852 ml Output 4050 ml Net -2198 ml Physical Exam: * Gen: awake, alert, converses appropriately, NAD * Resp: Unlabored on RA, no wheeze * LLE: - dressing c,d,i - 5/5 PF, DF, EHL - SILT L4-S1 - 2+ PT pulse, toes wwp Labs: CBC: Recent Labs 11/11/24 0504 WBC 11.40* HB 10.0* HCT 30.7* PLT 275 MCV 91.4 RDWCV 12.6 COAG: No results for input(s): APTT, INR in the last 168 hours. BMP: Recent Labs 11/11/24 0504 GLUC 122* NA 137 K 4.5 CHLOR 100 CO2 27 ANION 10 BUN 16 CREAT 0.65 CHEM: Recent Labs 11/11/24 0504 CA 8.7 URINALYSIS:No results for input(s): PH, SPGR, UGLUC, UBILI, UKET, UHB, UPROT, UROBIL, UWBC, SSA in the last 168 hours. Invalid input(s): SUREKHA Dias, [id number] Telephone encounter Note* Telephone Encounter - Casey Hernandez PSS - 11/11/2024 1:51 PM EST Date/Time: 11/11/2024 1:51 PM Spoke with Patient @ phone #: - Preferred # for contact: Have you received help from a home care company in the last 60 days? No Are you agreeable to [facility] services? Yes What address will we be seeing you at? [address] [facility] [address] Do you have any upcoming appointments or things we need to schedule around? 11/24/24 Do you have a teachable CG or can you manage your care independently? Yes Who? Roommate Have you received the flu shot? No If so, when and where? NA [facility]03-07-2025 Miscellaneous Notes* Telephone Encounter - Casey Hernandez PSS - 11/11/2024 1:51 PM EST Date/Time: 11/11/2024 1:51 PM Spoke with Patient @ phone #: - Preferred # for contact: Have you received help from a home care company in the last 60 days? No Are you agreeable to [facility] services? Yes What address will we be seeing you at? [address] [facility] [address] Do you have any upcoming appointments or things we need to schedule around? 11/24/24 Do you have a teachable CG or can you manage your care independently? Yes Who? Roommate Have you received the flu shot? No If so, when and where? NA [facility] NoteHNO ID: [id number] Author: NATHANIEL VASQUEZ MD Service: Orthopaedic Surgery Author Type: Physician Type: Progress Notes Filed: 11/11/2024 09:40 Note Text: ORTHOPAEDIC SURGERY PROGRESS NOTE PATIENT NAME: Mariam Minaya A/P: 64 year old yo female POD1 s/p L TKA - Activity: WBAT LLE - Wound: Aquacel Dressing to be removed POD7 - Drain: - Antibiotics: Completing 24 hours of perioperative ancef then Duricef - Imaging: non - Pain - PO and IV breakthrough - DVT prophylaxis - SCDs, ASA 81 BID - HLIV when tolerating sufficient PO - Norman: none * Discharge planning - Await PT recs --> consults today - Case Management --> assessment today - Dispo: anticipate DC to home on POD 1/2 S: Doing well, mild pain this morning in her left knee denies n/v/cp/sob VITALS: 11/10/24 2303 11/10/24 2314 11/11/24 0342 11/11/24 0723 BP: 116/65 97/52 (!) 86/43 Pulse: 82 72 62 Resp: 14 16 20 Temp: 36.3 ?C (97.3 ?F) 36.3 ?C (97.3 ?F) 36.9 ?C (98.4 ?F) TempSrc: Oral Oral Oral SpO2: 96% 93% 96% Weight: 73.7 kg (162 lb 7.7 oz) Height: 167.6 cm (5' 6) Intake/Output Summary (Last 24 hours) at 11/11/2024 0938 Last data filed at 11/11/2024 0852 Gross per 24 hour Intake 2368 ml Output 2150 ml Net 218 ml Physical Exam: * Gen: awake, alert, converses appropriately, NAD * Resp: Unlabored on RA, no wheeze * LLE: - dressing c,d,i - / PF, DF, EHL - SILT L4-S1 - 2+ PT pulse, toes wwp Labs: CBC: Recent Labs 11/11/24 0504 WBC 11.40* HB 10.0* HCT 30.7* PLT 275 MCV 91.4 RDWCV 12.6 COAG: No results for input(s): APTT, INR in the last 168 hours. BMP: Recent Labs 11/11/24 0504 GLUC 122* NA 137 K 4.5 CHLOR 100 CO2 27 ANION 10 BUN 16 CREAT 0.65 CHEM: Recent Labs 11/11/24 0504 CA 8.7 URINALYSIS:No results for input(s): PH, SPGR, UGLUC, UBILI, UKET, UHB, UPROT, UROBIL, UWBC, SSA in the last 168 hours. Invalid input(s): SUREKHA Vasquez MD Associate Staff Physician [facility] Department of Orthopedic Surgery [phone] [id number] NoteHNO ID: [id number] Author: JENNIFER ESTRELLA, RN Service: Care Management Author Type: Registered Nurse Type: Care Mgt Initial Assessment Filed: 11/11/2024 09:51 Note Text: CARE MANAGEMENT: ASSESSMENT AND DISCHARGE PLAN SERVICE DATE: November 11, 2024 SERVICE TIME: 9:31 AM PCP: Laura Robertson MD Primary Contact: Extended Emergency Contact Information Primary Emergency Contact: lannydemetria Mobile Relation: Daughter Secondary Emergency Contact: Emelia Simpson Mobile Relation: Friend Admission Status: Extended Recovery Insurance Provider: [facility] STAFF/NON STAFF Discharge Planning requested by: Per Department Practice Potential Transition Plans Home OT/PT Advance Directives Current Advance Directive: Health Care Power of Loan Analyst In Chart: No Current Living Arrangements and Support Lives with: Other person(s) Ex Type of Residence: Private Residence (House) Does the patient have to climb stairs at home?: stairs within the home Support: Family members, Friends/neighbors How do you manage to accomplish the following: Independent: Ambulation, Bathe/Shower, Dress, Meals/Meal Prep, Going to the bathroom, Medication Management, Transportation to appointments/community Current Services/Equipment Current Post-Acute Service(s): DME Current DME Type: Walker, Cane Discharge Planning Patient Goal(s): Be able to go home [place] Explained: [place] Given: Yes Level of Care Discussed: Home Care Are you interested in bedside delivery of your medications? Yes Discharge Planning Participant(s): Patient Patient/Family Comments: Caregiver Assessment: Caregiver is ready, willing and able to meet the patient's needs as recommended by the inter-professional team: Yes Name of Caregiver: Daughter, Friend Transport at Discharge: Transportation Arrangements: Car Needs Prior to Discharge: Needs Prior to Discharge: OT/PT Evaluation Post-Acute Discharge Plan: Review of the chart and met with the patient. The patient lives with her ex in a 2 story home with a ramp to enter. PT- Pending. Discussed discharge planning with the patient. The patient plans on discharging home with Home PT. Referral to [facility]. CM department will continue to follow for DC needs. 9:51 am- [facility] able to accept. SIGNATURE: Jennifer Estrella RN PATIENT NAME: Mariam Minaya DATE: November 11, 2024 TIME: 9:31 [facility] HospitalJndikmmd17-57-1534 NoteHNO ID: [id number] Author: MAYKEL GOVEA MD Service: General Internal Medicine Author Type: Physician Type: Progress Notes Filed: 11/11/2024 08:39 Note Text: INPATIENT PROGRESS NOTES Patient Name: Mariam Minaya DATE of SERVICE: 11/11/2024 TIME of SERVICE: 7:50 AM PRIMARY SERVICE: medicine INTERVAL HPI: Uneventful night, this morning patient had transient lightheadedness while sitting on the side of the bed, no nausea or vomiting, ASSESSMENT AND PLAN: Osteoarthritis, status post left total knee arthroplasty, DVT prophylaxis with aspirin 81 mg twice a day RA continue Plaquenil Postop hypotension received 500 cc normal saline bolus, will repeat bolus GERD continue PPI Chronic pain she is on gabapentin hypothyroidism currently on Synthroid Possible discharge later afternoon if her blood pressure improved and she does well with the physical therapy Plan of care discussed with: Provider, RN, Patient. PERTINENT ROS: All other reviewed and negative other than HPI. MEDICATIONS: Current Facility-Administered Medications Medication Dose Route Frequency phentermine-topiramate ER 15-92 mg CM24 1 capsule (QSYMIA) 1 capsule ORAL DAILY gabapentin 300 mg cap(s) (NEURONTIN) 300 mg ORAL TID levothyroxine 112 mcg tab(s) (SYNTHROID) 112 mcg ORAL DAILY NaCl 0.9% iv flush bag 20 mL INTRAVENOUS PRN NaCl 0.9% iv infusion 75 mL/hr INTRAVENOUS CONTINUOUS ceFAZolin iv piggyback 2 g in D5W (iso-osmotic) 100 mL (ANCEF) 2 g INTRAVENOUS q 8 HR oxyCODONE IR 5-10 mg tab(s) (ROXICODONE) 5-10 mg ORAL q 3 H PRN HYDROmorphone 0.4 mg injection (DILAUDID) 0.4 mg INTRAVENOUS q 4 H PRN acetaminophen 1,000 mg tab(s) (TYLENOL) 1,000 mg ORAL q 8 H ondansetron orally disintegrating 4 mg tab(s) (ZOFRAN ODT) 4 mg ORAL q 6 H PRN Or ondansetron (PF) 4 mg injection (ZOFRAN) 4 mg INTRAVENOUS q 6 H PRN magnesium hydroxide 400 mg/5 mL 30 mL (MOM) 30 mL ORAL DAILY PRN [START ON 11/12/2024] bisacodyl EC 10 mg tab(s) (DULCOLAX) 10 mg ORAL DAILY aluminum-magnesium hydroxide-simethicone 200-200-20 mg/5 mL 30 mL 30 mL ORAL q 2 H PRN ascorbic acid (vitamin C) 500 mg tab(s) (VITAMIN C) 500 mg ORAL BID w MEALS docusate sodium 100 mg cap(s) (COLACE) 100 mg ORAL BID senna 17.2 mg tab(s) (SENOKOT) 17.2 mg ORAL AT BEDTIME aspirin, enteric coated 81 mg tab(s) 81 mg ORAL BID pantoprazole DR 40 mg tab(s) (PROTONIX) 40 mg ORAL DAILY (6 AM) cephALEXin 500 mg cap(s) (KEFLEX) 500 mg ORAL q 6 H scopolamine (delivers 1 mg over 3 days) 1 Patch (TRANSDERM-SCOP) 1 Patch TRANSDERMAL ONCE PHYSICAL EXAM: Patient Vitals for the past 24 hrs: BP Temp Temp src Pulse Resp SpO2 Height Weight 11/11/24 0723 (!) 86/43 36.9 ?C (98.4 ?F) Oral 62 20 96 % -- -- 11/11/24 0342 97/52 36.3 ?C (97.3 ?F) Oral 72 16 93 % -- -- 11/10/24 2314 116/65 36.3 ?C (97.3 ?F) Oral 82 14 96 % -- -- 11/10/24 2303 -- -- -- -- -- -- 167.6 cm (5' 6) 73.7 kg (162 lb 7.7 oz) 11/10/24 2215 114/65 -- -- 86 18 97 % -- -- 11/10/24 1856 117/63 -- -- 84 16 96 % -- -- 11/10/24 1700 132/81 -- -- 83 23 100 % -- -- 11/10/24 1600 119/75 -- -- 80 14 100 % -- -- 11/10/24 1530 149/68 -- -- 80 17 99 % -- -- 11/10/24 1500 129/61 -- -- 79 7 97 % -- -- 11/10/24 1430 153/80 -- -- 76 11 100 % -- -- 11/10/24 1415 143/78 -- -- 79 15 99 % -- -- 11/10/24 1400 146/78 -- -- 79 12 100 % -- -- 11/10/24 1345 144/77 -- -- 76 8 100 % -- -- 11/10/24 1330 108/76 -- -- 80 18 100 % -- -- 11/10/24 1319 140/74 36.7 ?C (98.1 ?F) Temporal Art 80 13 98 % -- -- 11/10/24 1124 117/68 -- -- (!) 58 14 97 % -- -- 11/10/24 1122 117/68 -- -- (!) 57 13 97 % -- -- 11/10/24 1121 118/68 -- -- (!) 58 14 97 % -- -- 11/10/24 1118 115/66 -- -- (!) 58 15 95 % -- -- 11/10/24 1115 119/67 -- -- 65 16 95 % -- -- 11/10/24 1100 114/63 -- -- (!) 57 14 97 % -- -- 11/10/24 1018 118/56 36.8 ?C (98.2 ?F) Temporal Art -- 16 98 % -- -- Body mass index is 26.22 kg/m?. GENERAL: Alert, no distress, cooperative NECK: No jugulovenous distention LUNGS: Lungs clear to auscultation, CARDIAC: Normal S1 and S2; no rubs, murmurs, or gallops ABDOMEN: Abdomen soft, non-tender, BS normal, No masses or organomegaly EXTREMITIES: no edema, no calf tenderness CBC: Recent Labs 11/11/24 0504 WBC 11.40* RBC 3.36* HB 10.0* HCT 30.7* PLT 275 MCV 91.4 MCH 29.8 MPV 10.2 Coags: CMP: Recent Labs 11/11/24 0504 NA 137 K 4.5 CHLOR 100 CO2 27 BUN 16 CREAT 0.65 GLUC 122* CA 8.7 ANION 10 Cardiac Enzymes: Liver Function, Amylase, Lipase: No results for input(s): TPROT, ALB, ALT, AST, ALKPHOS, TBILI, AMYLASE, LIPASE, LACTATE in the last 24 hours. ABG's: No results for input(s): PH, PCO2, PO2, BE, HCO3, CO2CT, O2HB, COHB, MHGB, TEMP, PHTC, PCO2T, PO2T, O2AD in the last 24 hours. MG/PHOS: No results for input(s): MG, P in the last 24 hours. SIGNATURE: Maykel Govea [id number] NoteHNO ID: [id number] Author: YAKELIN BAUTISTA PA-C Service: General Surgery Author Type: Physician Medical Scientist Type: Progress Notes Filed: 11/10/2024 14:55 Note Text: POSTOP PROGRESS NOTE SERVICE DATE: 11/10/2024 SERVICE TIME: 2:53 PM Subjective CHIEF COMPLAINT: Primary osteoarthritis of left knee INTERVAL HISTORY OF PRESENT ILLNESS: This is a 64 year old female postop ROBOTIC ASSISTED TOTAL KNEE ARTHROPLASTY - Left . Patient rates their pain 8-9/10 at this time- nursing notified. Patient noted to be in PACU. Objective PHYSICAL EXAM: BP 144/77 Pulse 76 Temp (Src) 98.1 (Temporal Artery) Resp 8 SpO2 100% O2 Therapy: Nasal Cannula, Liters (Numeric Only): 2 Physical Exam: Left Leg: Sensation intact to light touch. Patient is able to dorsiflex and plantarflex the left ankle. Patient is able to wiggle toes. Jesse Wrap dressings and Ice Man dry and in place. Assessment AND Plan POSTOP PLANS: As indicated per Orthopedic services Proceed with Surgeon's post operative plan. Advised patient to reach out to nurse if issues occur. SIGNATURE: Yakelin Bautista PA-C PATIENT NAME: Mariam Minaya DATE: November 10, 2024 TIME: 2:53 PMCleveland Clinic [facility] [id number] NoteHNO ID: [id number] Author: NO BAIN APRN.CRNA Service: Anesthesiology Author Type: Nurse Pumper Gager Type: Anesthesia Procedure Notes Filed: 11/10/2024 13:42 Note Text: ANESTHESIOLOGY PROCEDURE NOTE Airway General Information Procedure Start Time/Medication Administration: 11/10/2024 12:23 PM Procedure End Time: 11/10/2024 12:23 PM Patient location during procedure: OR Staffing Anesthesiologist: Miya Hayes MD Performed by: anesthesiologist Indications and Patient Condition Indications for airway management: anesthesia and airway protection Preoxygenated: yes anesthesia circuit Patient position: sniffing Method: asleep Final Airway Details Final airway type: endotracheal airway Final Endotracheal Airway: ETT Cuffed: yes Successful intubation technique: video laryngoscopy Devices used: Peña and intubating stylet Endotracheal tube insertion site: oral Blade: Jah Blade size: #3 ETT size (mm): 7.0 Measured from: lips Measurement (cm): 22 Placement verified by: capnometry Cormack-Lehane Classification: grade I - full view of glottis Number of attempts at approach: 1 Failed airway: no Unrecognized esophageal intubation: no Airway not difficult Comments LMA igel 3 and 4 inadequate seal SIGNATURE: No Bain APRN.CRNA PATIENT NAME: Mariam Minaya DATE: November 10, 2024 TIME: 12:24 PM CSN: [id number] NoteHNO ID: [id number] Author: NO BAIN APRN.CRNA Service: Anesthesiology Author Type: Nurse Pumper Gager Type: Anesthesia Procedure Notes Filed: 11/10/2024 13:42 Note Text: ANESTHESIOLOGY PROCEDURE NOTE Airway General Information Procedure Start Time/Medication Administration: 11/10/2024 11:39 AM Procedure End Time: 11/10/2024 11:39 AM Patient location during procedure: OR Timeout Performed Pre-procedure: timeout performed Consent Obtained: Yes Patient 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: 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, 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 Staffing LIQUOR RUNNER: No Bain APRN.LIQUOR RUNNER Performed by: JUDY Indications and Patient Condition Indications for airway management: anesthesia Preoxygenated: yes anesthesia circuit Patient position: sniffing Method: asleep Cricoid Pressure: No Final Airway Details Final airway type: supraglottic airway Number of attempts at approach: 1 Final Supraglottic Airway: i-gel Size 3 Seal Adequate: yes Failed airway: no Unrecognized esophageal intubation: no Airway not difficult SIGNATURE: No Bain APRN.CRNA PATIENT NAME: Mariam Minaya DATE: November 10, 2024 TIME: 11:59 AM CSN: [id number] NoteHNO ID: [id number] Author: MIYA HAYES MD Service: ? Author Type: Anesthesiologist Type: Anesthesia Procedure Notes Filed: 11/10/2024 11:31 Note Text: ANESTHESIOLOGY PROCEDURE NOTE Peripheral Nerve Block General Information Procedure Start Time/Medication Administration: 11/10/2024 11:13 AM Procedure End time: 11/10/2024 11:22 AM Patient location during procedure: pre-op Consent Obtained: Yes Patient 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: arm band Reason for block: post-op pain management/at surgeon's request Staffing Anesthesiologist: Miya Hayes MD Performed by: anesthesiologist Preparation Sterility Preparation: hand hygiene performed prior to procedure, sterile gloves, drapes, and procedure tray, surgical cap used, mask used, sterile drape used during line insertion, skin prep agent completely dried prior to procedure Sterility Technique Not Completely Performed Due to Extreme Emergency: No Site Prep: Chloraprep Pre-Procedure Neuro Exam Location: LLE Sensory: intact Motor: intact Procedure Details Patient Position: sitting Monitoring: Pulse OX Block Type Lower Extremity: distal femoral (adductor canal) Laterality: left Injection Technique: single-shot Ultrasound Guided: Yes Image in Chart: yes Local Infiltration: Yes Needle Needle Type: echogenic Needle Gauge: 20 G Needle Length: 100 mm Needle Localization: ultrasound Assessment Injection assessment: negative aspiration, no paresthesia on injection, incremental injection and local visualized surrounding nerve on ultrasound Paresthesia: immediately resolved Medications Administered ropivacaine (PF) 5 mg/mL (0.5 %) injection (NAROPIN) - peripheral nerve block 20 mL - 11/10/2024 11:13:00 AM dexamethasone sodium phosphate injection (DECADRON) - peripheral nerve block 2 mg - 11/10/2024 11:13:00 AM SIGNATURE: Miya Hayes MD PATIENT NAME: Mariam Minaya DATE: November 10, 2024 TIME: 11:29 AM CSN: [id number] History of Present illness Narrative* Laura Robertson MD - 11/03/2024 3:40 PM EST Chief Complaint Patient presents with: F/U 3 Month HPI Mariam Minaya is a 64 year old female who presents here today for a 3 month f/u. Pt here today for a weight follow up. Weight: Pt currently taking Qsymia 15-92 mg once daily for weight loss. Weight at last visit was 159 lbs in April. Pt has had knee replacement surgery since this time on 08/23/24. Pt is scheduled tohave left knee replaced on 11/10/24. Has been off the Qsymia since her recent gallbladder surgery. Thyroid: Stable on current regimen of Synthroid 112 mcg once daily. Denies any missed dosages. Pain: Taking Gabapentin 600 mg 1 caps TID and 300 mg TID for right sided sciatic pain. Was seen in the office by Salinas Samuel CNP for an ED follow up. Pt was started on Protonix 20 mg once daily and advised to d/c narcotic pain medication if able and use Tylenol. Pt referred to GeneralSurgery to evaluate calculus of gallbladder. Pt underwent laparoscopic cholecystectomy on 10/26/24. Past medical history, appointments, medications, allergies reviewed. Previous Medical History PAST MEDICAL HISTORY Diagnosis Date Astigmatism, regular 12/22/2015 Chronic bilateral low back pain with sciatica 12/10/2015 Chronic kidney insufficiency, stage 3 (moderate) (HCC) 04/06/2018 Encounter for gynecological examination 05/03/2019 [facility]. 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 RA (rheumatoid arthritis) (HCC) + RF, +CCP OVERLAP PsA (+NAIL disease, dactylitis, axial inflammatory sx) Sjogren's syndrome (HCC) Neg SSA SSB in January 2009 Thyroid cancer (HCC) 09/07/[address] Maldonado removed, radioactive iodine ablation. papillary Vitamin D deficiency Previous Surgical History PAST SURGICAL HISTORY Procedure Laterality Date BREAST AUGMENTATION W/PROSTHETIC IMPLANT 2000 bilateral implants BX BREAST PERC NEED W/GUID 10/29/2011 U/S needle core left axillary LN COLONOSCOPY FLX DX W/COLLJ SPEC WHEN PFRMD 09/07/2010 Colonoscopy, repeat 10 yrs EGD TRANSORAL BIOPSY SINGLE/MULTIPLE 11/06/2006 Hiatal hernia, gastritis, retained food ESOPHAGOGASTRODUODENOSCOPY TRANSORAL DIAGNOSTIC EGD ESOPHAGOGASTRODUODENOSCOPY TRANSORAL DIAGNOSTIC 03/15/2015 EGD FNA (FINE NEEDLE ASPIRATION) 10/15/2006 U/S FNA right thyroid nodule FNA WITH IMAGING 09/22/2011 U/S FNA left axillary mass KNEE ARTHROSCOPY Left 2009 LIG/TRNSXJ FLP TUBE ABDL/VAG APPR UNI/BI Tubal ligation NEUROPLASTY &/TRANSPOS MEDIAN NRV CARPAL TUNNE Left 05/30/2016 Carpal tunnel decomp NEUROPLASTY &/TRANSPOS MEDIAN NRV CARPAL TUNNE Right 09/26/2016 Carpal tunnel decomp PAST SURGICAL HISTORY OF 2010 removal of implants & replace & pannilectomy REMOVAL GALLBLADDER 10/26/2024 SYNOVECTOMY EACH 1999 left wrist THYROIDECTOMY TOTAL/COMPLETE 11/10/2006 TONSILLECTOMY & ADENOIDECTOMY <AGE 12 Tonsillectomy TOTAL KNEE REPLACEMENT Right 08/2024 VAGINAL HYSTERECTOMY UTERUS 250 GM/< 2003 Hysterectomy, vaginal Family History FAMILY HISTORY Problem Relation Age of Onset None Mother Cancer Father Breast Cancer Sister Thyroid Sister cancer s/p thyroidectomy Diabetes Brother from type I dx/d age 9 Diabetes Grandchild Type I age 8 Anesthesia Problems No Family History Patient Allergies ALLERGIES Allergen Reactions Humira [Adalimumab] Hives welt at injection site Tessalon [Benzonata* Other: See Comments hypersensitive Albuterol Other: See Comments severe leg cramps Amicar [Aminocaproi* Rash Flovent [Fluticason* Rash Methotrexate Contraindication-Medical Surgical elevated liver enz Current Medications Current Outpatient Medications on File Prior to Visit Medication Sig Fluorouracil (EFUDEX) 5 % cream Apply twice daily to affected areas on face for 2-4 weeks as tolerated. oxyCODONE-acetaminophen (PERCOCET) 5-325 mg tablet Take 1 tablet by mouth every 6 hours as needed for up to 5 days. ibuprofen (MOTRIN) 600 mg tablet TAKE ONE TABLET BY MOUTH EVERY 6 HOURS, START ONE DAY PRE-OP ondansetron orally disintegrating (ZOFRAN ODT) 4 mg disintegrating tablet THREE TIMES A DAY as needed for nausea and vomiting Biotin 1 mg tab Take 1 tablet by mouth once daily. [START ON 11/05/2024] mupirocin (BACTROBAN) 2 % ointment Apply 0.5 inch with cotton swab (Q-tip) to each nostril in the morning and evening for 5 days prior to and including day of surgery. Patient should start on November 05, [address]. pantoprazole DR (PROTONIX) 20 mg tablet Take 1 tablet by mouth once daily. amoxicillin (AMOXIL) 500 mg capsule Take 2 capsules three times a day, starting one day prior dental appointments/procedures and on the day of the dental procedure (two days for 6 doses total) ascorbic acid, vitamin C, (VITAMIN C) 500 mg tablet Take 1 tablet by mouth two times a day with meals for 28 doses. acetaminophen (TYLENOL) 500 mg tablet Take 2 tablets by mouth every 8 hours as needed for pain. gabapentin (NEURONTIN) 300 mg capsule Take 1 capsule by mouth three times a day for 90 days. Take with 600 mg of Gabapentin phentermine-topiramate ER (QSYMIA) 15-92 mg 24 Hr Capsule Take 1 capsule by mouth once daily gabapentin (NEURONTIN) 600 mg tablet Take 1 tablet by mouth three times a day for 180 days. levothyroxine (SYNTHROID) 112 mcg tablet Take 1 tablet by mouth once daily. Take on empty stomach. For thyroid hydrOXYchloroQUINE (PLAQUENIL) 200 mg tablet Take 1 and a half tablets by mouth once daily. Cholecalciferol, Vitamin D3, 50 mcg (2,000 unit) cap Take 1 capsule by mouth twice daily. vitamin b complex tab Take 1 tablet by mouth once daily. No current facility-administered medications on file prior to visit. Social History Social History Tobacco Use Smoking status: Never Passive exposure: Never Smokeless tobacco: Never Vaping Use Vaping status: Never Used Substance Use Topics Alcohol use: Not Currently Comment: rare ; deo. wine Drug use: Not Currently Types: Marijuana EXAM: BP 120/74 Pulse 74 Resp 16 Wt 65.5 kg (144 lb 6.4 oz) BMI 23.31 kg/m General Appearance: Well appearing, alert, in no acute distress, well-hydrated, well nourished.. Lungs: Lungs clear to auscultation. No wheezing, rhonchi, rales.. Heart: RRR without murmur, gallop, or rubs. No ectopy. Health Maintenance List Shingrix Vaccine(1 of 2) Never done Pneumococcal Vaccine: 50+(2 of 2 - PCV) due on 08/09/2012 RSV Vaccine(1 - Risk 60-74 years 1-dose series) Never done Colorectal Cancer Screening due on 09/07/2020 Mammogram Screening due on 12/17/2021 Lipid Screening due on 05/03/2024 Influenza Vaccine(1) due on 03/06/2025 HIV Screening due on 11/03/2025 DTaP,Tdap,Td Vaccine(2 - Td or Tdap) due on 12/31/2024 Depression Screening due on 05/26/2025 Anxiety Screening due on 05/26/2025 Serum Creatinine due on 10/14/2025 Annual PCP Team Chronic Disease Visit due on 11/03/2025 Diabetes Screening due on 10/14/2027 Hepatitis C Screening Completed Cervical Cancer Screening Discontinued Covid-19 Vaccine Discontinued Data reviewed Weight graph ASSESSMENT/PLAN: 1. Overweight (BMI 25.0-29.9) - ICD9: 278.02, ICD10: E66.3 (primary diagnosis) Continue current medications. Restart after her upcoming knee surgery - QSYMIA 15 MG-92 MG CAPSULE, EXTENDED RELEASE 2. Sciatica, right side - ICD9: 724.3, ICD10: M54.31 - GABAPENTIN 600 MG TABLET - GABAPENTIN 300 MG CAPSULE 3. Postoperative hypothyroidism - ICD9: 244.0, ICD10: E89.0 4. Chronic kidney insufficiency, stage 3 (moderate) (HCC) - ICD9: 585.3, ICD10: N18.30 Stable MOnitor 5. Primary osteoarthritis of both knees - ICD9: 715.16, ICD10: M17.0 Scheduled for left TKR Follow up in 3 months I agree with the Chief Complaint, ROS, and Past Histories independently gathered by the clinical administrative support assistant and the remaining scribed note accurately describes my personal service to the patient. Medical Decision Making: Problems: Moderate: 2+ stable chronic illnesses Risk: Moderate: Drug management Medical Decision Making Level: 4 - Moderate Laura Robertson MD The documentation for this note was completed by Rae Sheth MA acting as scribe for Laura Robertson MD. November 03, 2024 3:28 PM. Rae Sheth MA documented in this encounterPremier Health [facility]02-27-2025 NoteC[facility]02-26-[facility] History of Present illness Narrative* Malinda Lindo APRN.BUILDING MAINTENANCE SUPERVISOR - 11/02/2024 3:30 PM EST Images from the original note were not included. SUBJECTIVE: Mariam Minaya presents for follow up of her laparoscopic cholecystectomy on 10/26/24. She tolerated the procedure well and was discharged home. Patient complaints: None She denies abdominal pain, incisional pain, nausea, vomiting, diarrhea, fever, chills, jaundice , and dark urine She denies food intolerance. PHYSICAL EXAMINATION: Temp 36.6 C (97.8 F) (Temporal) General Appearance: Well developed, No acute distress Patient does not appear icteric. Abdomen: Abdomen soft, non-distended Incision: no drainage, no erythema, no swelling, mild ecchymosis near upper midline incision, and no tenderness IMPRESSION: Post op course: Normal PLAN: Post-op patient instructions were reviewed with the patient. Low fat diet encouraged. I have explained to Ms. Mariam Minaya that she may return to normal activity with the following restrictions: no pushing, pulling, lifting >20lbs for 2 more weeks. I have encouraged her to contact me at any time with any questions or concerns that may arise. Follow up: ILIANA Lindo APRN.BUILDING MAINTENANCE SUPERVISOR documented in this encounterPremier Health [facility]02-26-2025 NoteC[facility]02-26-2025 NoteC[facility]02-26-2025 History of Present illness Narrative* Josep Wise, PT - 11/02/2024 10:48 AM EST Images from the original note were not included. Episode Visit Count: 1 Therapist That Will Accept/Oversee The Plan Of Care: Josep Wise PT. Start of Care Date: 11/02/24 Onset Date: 11/02/22 (Worsening the last two years per patient.) Plan of Care Certification Date: (N/A) Next Certification Due Date: (N/A) Patient Identified by Name and Date of : Yes REHABILITATION AND SPORTS THERAPY PHYSICAL THERAPY EVALUATION PLAN OF CARE: Assessment: Mariam Minaya presents for Prehab Joint Education Visit prior to L TKA on 11/10/24. that interferes with walking in the community, rising from a chair, stair negotiation, walking, squatting, physical activities (Up Inclines) . The patient presents with impairments in ADL's, gait, independence in exercise, overall function, range of motion, strength, and symptom management. PROMIS (Patient-Reported Outcomes Measurement Information System) scores were reviewed and identified as a rehabilitation concern. Prognosis for therapy is Good due to: current objective clinical presentation, good overall health status, positive past response to therapy, within-session changes, good support system/ coping skills .The patient will benefit from skilled therapy services to meet thegoals established for this plan of care as noted below. Goals for Episode of Care: established 11/02/24 Patient will demonstrate proper technique for bed mobility based on expected procedure and precautions. (met) Patient will demonstrate proper sit to stand transfer technique with front wheeled walker. (met) Patient will demonstrate proper gait sequence with front wheeled walker or most appropriate assistive device. (met) Patient will demonstrate safe stair negotiation with most appropriate assistive device to simulate home setup. (met) Patient will demonstrate knowledge of ice and elevation and all applicable precautions. (met) Planned Interventions, Frequency, and Duration: Current Frequency: 1 visit Duration: 1 visit Total Number of Visits Planned: 1 Planned Treatment Interventions: Therapeutic exercise (36235), Neuromuscular re- education (96675), Manual therapy (49254), Therapeutic activities (45277), Self- fci management (19670), Patient/Family/Caregiver Education, Body Mechanics Training, Gait Training (74993) PLAN FOR NEXT VISIT: Re-Eval after surgery & completion of HHPT. Patient demonstrates good understanding of plan of care and treatment. The above goals and plan of care were discussed and agreed upon by patient/family. SUBJECTIVE: Here prehab education appt for L TKA upcoming on 11/11/23. Has tried arthritis medication, cortisone shots, PT, to no benefit. Recent surgery Aug 2024 for R TKA (only did HHPT following R TKA, did not do outpatient due to problem with scheduling/sickness.). Reports her R Knee is not bending as far because she didn't do the exercises when she was sick. Functional Limitations: walking in the community, rising from a chair, stair negotiation, walking, squatting, physical activities (Up Inclines) Prior Level of Function: Independent without limitations Relevant History Past Relevant Surgical Conditions: Total Knee Replacement-Right (August 23 2024.) Employment: Retired Home Environment Patient Lives With: Self/Alone Assistance Available: Other: See Comment, PRN Comments: Friend will stop by if needed. Home Type: Multi-Level with First Floor Set-Up Entry To Home: Ramp, Stairs, Without Rail Number Of Stairs Into Home: 1 (ramp (reports it's a dog ramp but believes it is wide enough to fit walker) and curb step to enter) Tub/Shower Type: Walk-in shower with shower chair Laundry: Patient reports doing it two days after last surgery. Equipment Owned: Walker- Wheeled, Cane Intake Information: Prescription present Previous Treatment: Physical Therapy , Injections , Surgery , Ice Falls Interview: No positive findings with falls interview Pain: Pain Pain Level: 6 Pain Location: Knee - Left Description: Throbbing Frequency: Walking PROMIS Scales 10/30/2024 10/03/2024 09/05/2024 Higher is Better Phys Func - T Score 41 (mild dysfunction) 38 (moderate dysfunction) Phys Func - Percentile 18 12 Self-Eff Symptom - T Score 48 (Average) Self-Eff Symptom - Percentile 42 Mobility - T Score 44 (mild dysfunction) Mobility - Percentile 27 05/16/2024 07/14/2023 02/10/2023 Lower is Better Pain Interference - T Score 62 (moderate) 74 (severe) 74 (severe) Pain Interference - Percentile 12 1 1 T-scores: mean of general population = 50. 5 points is clinically meaningfully difference Percentiles provide an indication of how the patient's score ranks in relation to the general population. Higher percentile rankings indicate better function/quality of life. 50th percentile is the average of the general population and indicates half of respondents had a worse score. OBJECTIVE MEASURES WITH LEVEL OF FUNCTION: LE AROM R Knee Extension: -1 Degrees R Knee Flexion: 100 Degrees (100 AROM; 105 AAROM Strap.) L Knee Extension: 0 Degrees L Knee Flexion: 130 Degrees (120 AROM, 130 AAROM w/ Strap.) LE Joint Mobility R Patellar Mobility: WNL L Patellar Mobility: WNL LE Strength R LE Strength: 4+/5 grossly L Hip Extension: 4+/5 L Hip Flexion (L2): 4/5 L Hip ABduction: 4/5 L Knee Extension (L3): 4/5 (Painful) L Knee Flexion: 4+/5 Gait Weight Bearing Status: FWB Gait: Independent Gait Observation: Antalgic, decreased stance on LLE. Non-equal stride length. Stairs: Able to complete one step with ease. Only has one step she needs to use in the house. Education: Education Learning Preferences: Demonstration, Explanation, Printed Materials Barriers: None Learning/educational needs: Procedure / Surgery, Home exercise program, Safety, Plan of Care, Gait Training Education Provided: Yes, see treatment interventions for education provided Education Provided To: Patient Education Mode/Type: Demonstration, Explanation/Discussion, Literature/Printed Materials Response to Education/Teach Back: States/Identifies TREATMENT: PT Treatment Interventions: Therapeutic Activity, Self-Mcfp Management, Gait Training Evaluation Self-Mcfp Management 1: *See Note Skilled intervention included patient education regarding: -Role of PT/OT before and after surgery, in the hospital, home, and outpatient setting -Role of personal care service provider in total joint recovery - discussed the need for patient self-reflection onpost-surgical needs and instructed patient to identify who will be helping them. Reinforced that home is best, and not having help at home does not qualify people to receive skilled therapy in a SNF setting. -Total joint precautions and potential weight bearing status/restrictions with need for assistive device and possible adaptive equipment for dressing -Benefits and need for ice, elevation and positioning, discussion with patient about the proper protocol to contact physician with surgery specific concerns after surgery. -Instructed patient in use of adaptive equipment that may be needed after total joint replacement. Therapeutic Activity 1: *See Note Skilled Intervention: -Instructed patient in sit-stand transfers from chair protecting surgical leg to walker. Patient demonstrated good technique with transfer. -Instructed patient in bed mobility with appropriate technique for total joint replacement. Patientdemonstrated need for supervision with bed mobility simulating Total Knee surgical procedure. -Instructed patient in total joint replacement exercises found in the total joint booklet and additional functional strengthening exercises. Issued a handout for home program. Gait Training 1: *See Note Skilled Intervention: -Instructed patient in gait pattern with wheeled walker and single point cane simulating total joint replacement. Patient demonstrated adequate performance of use of assistive device. -Instructed patient in stair mobility simulating total joint replacement surgery, weight bearing astolerated for surgical leg in a simulated home environment. Patient demonstrated good understandingof technique for safely ascending and descending the stairs. Overall assessment at the end of the pre-surgical visit is that the patient demonstrated good management of basic mobility simulating total joint replacement surgery. Further recommendations include using the FWW & Cane for increased duration than she did with her last total knee (R TKA), as well as allow friend to do more of her ADL/IADLs to decrease load during acute status. Billing * Evaluation Low Complexity: 1 Unit Therapeutic Activity Treatment Minutes: 10 Self-Care/Home Management Treatment Minutes: 10 Gait Training Treatment Minutes: 10 Skilled Treatment Time Minutes (timed and untimed codes): 45 Total Session Time (minutes): 45 Session Start Time : 1045 Session Stop Time : 1130 Josep Wise PT documented in this encounterPremier Health [facility]02-24-2025 Instructions* Patient Instructions* Aj Handy PA-C - 10/31/2024 2:22 PM EST EFUDEX (5-Fluorouracil) Mechanism of action: The medication is a topical chemotherapy cream. It is designed to attack skin cancer cells and photo damaged (sun damaged) skin. Uses: Actinic keratoses, squamous cell carcinoma in situ, superficial basal cell carcinoma Monitoring: - There is no requirement for initial or routine laboratory monitoring Side Effects: - Most patients will experience dryness, redness, and crusting at the application site. You may also have stinging, burning, and/or itching. These are all expected side effects that indicate the medication is working. - Rare side effects include headache, common cold, eye irritation, and sinus infections. - Other side effects may be possible. If you experience any of the side effects noted above, pleasecontact our clinic. Important information: - Apply the cream to a broad area designated by your provider with gloved hands if possible. If gloves are not available, be certain to wash hands thoroughly after application (as to not distribute the medication elsewhere accidently). If you are applying the cream to the site of a previous biopsy,please make sure the biopsy site is healed before starting to use the cream. - Things to expect following application of Efudex The area will become red, raw, and potentially scale or scab. This is the expected outcome with use. To alleviate some of the discomfort, you may apply Vaseline to the site 30 minutes after application of the Efudex. This will prevent scabbing of the area, and therefore, alleviate additional discomfort. Avoid sun exposure to the treated areas at all times. Exposure to the sun will cause increased redness, burning, and irritation to the site. You may apply ice packs to the area to assist with any swelling that is the product of Efudex use. If you are not tolerating the medication, you may take a break from application for a few days and apply Vaseline/OTC Hydrocortisone to the site. Please resume the medication to complete the prescribed course. - A follow up will be needed, generally 4 weeks following the last application of the cream. documented in this encounterPrem[facility] History of Present illness Narrative* Keysha Saavedra APRN.BUILDING MAINTENANCE SUPERVISOR - 10/31/2024 2:00 PM EST NEW PATIENT Chief Complaint: LESION, SKIN History of Present Ilness: Mariam Minaya is a 64 year old female who presents today for a focused skin examination. #1 GOC Location: nose, upper lip and right cheek Duration: years Symptoms: feels like pieces of glass, tender, dry, red, flaky Current Treatment: mupirocin (smoothed lesions but did not resolve pain/discomfort) Past Treatment: possibly PDT in the past? Pertinent History: History of skin cancer: No History of atypical nevi: No History of immunosuppression/organ transplant: Yes - RA (Plaquenil) , planning , or ? No Pertinent Family medical history: History of melanoma: No History of non melanoma skin cancer: No Other family history (autoimmune, dermatologic, etc): None Past Medical History is reviewed. Medication List is reviewed. ROS: Skin as above. Physical Exam: Fox skin type: II The patient is a pleasant female in no apparent distress. Alert and oriented x 3. A skin exam performed of the face is significant for: Philtrum, Right Nasal Sidewall Erythematous papules with gritty adherent scale Assessment and Plan: ACTINIC KERATOSIS (2) Philtrum, Right Nasal Sidewall Discussed etiology and possibility of transformation to SCC. Discussed treatment options and the risks and benefits of each including liquid nitrogen treatment,treatment with 5-fluorouracil (efudex), and photodynamic therapy; patient elects for efudex. Recommend Efudex 5% topical cream twice daily for 2-4 weeks. Advised patient this medication is expected to cause irritation at the treated sites, ok to hold medication 1-2 days if excessive, then resume Discussed r/b/o of medication including side effects. Avoid sun exposure in treated areas as this can lead to blistering/painful reaction. Sunscreen and sun protection reviewed. Should any areas change in size, shape or color, bleed or become tender, the patient will contact the office for evaluation sooner than their interval appointment. Follow up: 8 weeks after efudex treatment for AK's Intake: Marybel Jerez LPN Training Physician Medical Scientist: Aj Handy PA-C I have seen and evaluated the patient and discussed the case with the PA/CLERICAL ADMINISTRATOR trainee. I agree with the assessment and plan as documented in the PA/CLERICAL ADMINISTRATOR's note. I agree with the Chief Complaint, ROS, and Past Histories independently gathered by the clinical administrative support assistant and the remaining scribed note accurately describes my personal service to the patient. Keysha Saavedra APRN.PENNY documented in this encounterPrem[facility]02-24-2025 [facility] NoteHNO ID: [id number] Author: CONSTANTINO ENGLE APRN.LIQUOR RUNNER Service: Anesthesiology Author Type: Nurse Pumper Gager Type: Anesthesia Procedure Notes Filed: 10/26/2024 10:17 Note Text: ANESTHESIOLOGY PROCEDURE NOTE Airway General Information Procedure Start Time/Medication Administration: 10/26/2024 10:14 AM Procedure End Time: 10/26/2024 10:14 AM Patient location during procedure: OR Staffing LIQUOR RUNNER: Constantino Engle APRN.LIQUOR RUNNER Performed by: LIQUOR RUNNER Indications and Patient Condition Indications for airway management: anesthesia Preoxygenated: yes anesthesia circuit Patient position: sniffing Method: asleep Cricoid Pressure: No Manual In-Line Stabilization: No Difficult Mask: No Final Airway Details Final airway type: endotracheal airway Final Endotracheal Airway: ETT Cuffed: yes Successful intubation technique: direct laryngoscopy Endotracheal tube insertion site: oral Blade: Polanco Blade size: #2 ETT size (mm): 7.0 Measured from: lips Measurement (cm): 22 Placement verified by: capnometry Cormack-Lehane Classification: grade I - full view of glottis Number of attempts at approach: 1 Failed airway: no Unrecognized esophageal intubation: no Airway not difficult SIGN OUT SIGNATURE: Constantino Engle APRN.CRNA PATIENT NAME: Mariam Minaya DATE: October 26, 2024 TIME: 10:17 AM CSN: [id number] Telephone encounter Note * Telephone Encounter - Pallavi Brasher RN - 10/24/2024 8:59 AM EST Spoke with patient. Advised her that she may tale ibuprofen posy gall bladder surgery but noted shehas knee surgery coming up and advised her to schdeck with her ortho doctor as well regarding ibuprofen. Patient verbalizes understanding and has no further questions or concerns at this time. Was advised to call as needed for future problems.Encounter closed. [facility]02-17-2025 Miscellaneous Notes* Telephone Encounter - Pallavi Brasher RN - 10/24/2024 8:59 AM EST Spoke with patient. Advised her that she may tale ibuprofen posy gall bladder surgery but noted shehas knee surgery coming up and advised her to schdeck with her ortho doctor as well regarding ibuprofen. Patient verbalizes understanding and has no further questions or concerns at this time. Was advised to call as needed for future problems.Encounter closed. * Telephone Encounter - Kristina Nelson LPN - 10/24/2024 8:31 AM EST Patient called into office stating that she has to have tooth extraction today 10/24/2024. She was prescribed Ibuprofen 600 mg. Please advise if patient is able to take medication. Kristina Nelson LPN documented in this encounterPremier [facility]02-17-2025 Telephone encounter Note * Telephone Encounter - Kristina Nelson LPN - 10/24/2024 8:31 AM EST Patient called into office stating that she has to have tooth extraction today 10/24/2024. She was prescribed Ibuprofen 600 mg. Please advise if patient is able to take medication. Kristina Nelson LPN [facility] Work Phone: 1(651) 522-711602-15-2025 History of Present illness Narrative* Jane Donaldson RT(R) - 10/22/2024 1:00 PM EST Radiology Service Progress Note PATIENT NAME: Mariam Minaya DATE OF SERVICE: October 22, 2024 TIME: 1:24 PM PATIENT IDENTITY VERIFICATION COMPLETED USING TWO (2) IDENTIFIERS: Name and Date of confirmedby patient verbally. FALL SCREENING: Has the patient had 2 falls in the last year or 1 fall with injury or currently using an Ambulatory Assistive Device (Walker, Cane, Wheelchair, Crutches, etc.)? No PATIENT GENDER DATA: Assigned female at . status: : No status:N/A PATIENT RELEVANT IMPLANT DATA REVIEWED: Yes PATIENT PRESENTS WITH AN IMPLANTABLE OR ATTACHED ADMINISTRATIVE SUPPORT ASSISTANT: No RADIOLOGY DEPARTMENT: CT; Exam(s) Completed: Lower extremity PERIPHERAL IV DATA: Not applicable SIGNED BY: RT Hunter(Pat) October 22, 2024 1:24 PM documented in this encounterPremier Health [facility]02-15-2025 NoteHNO ID: [id number] Author: JANE DONALDSON RT(R) Service: Radiology Author Type: Technologist Type: Progress Notes Filed: 10/22/2024 13:24 Note Text: Radiology Service Progress Note PATIENT NAME: Mariam Minaya DATE OF SERVICE: October 22, 2024 TIME: 1:24 PM PATIENT IDENTITY VERIFICATION COMPLETED USING TWO (2) IDENTIFIERS: Name and Date of confirmed by patient verbally. FALL SCREENING: Has the patient had 2 falls in the last year or 1 fall with injury or currently using an Ambulatory Assistive Device (Walker, Cane, Wheelchair, Crutches, etc.)? No PATIENT GENDER DATA: Assigned female at . status: : No status: N/A PATIENT RELEVANT IMPLANT DATA REVIEWED: Yes PATIENT PRESENTS WITH AN IMPLANTABLE OR ATTACHED ADMINISTRATIVE SUPPORT ASSISTANT: No RADIOLOGY DEPARTMENT: CT; Exam(s) Completed: Lower extremity PERIPHERAL IV DATA: Not applicable SIGNED BY: RT Hunter(R) October 22, 2024 1:24 PMC[facility] [id number] Telephone encounter Note* Telephone Encounter - Ailyn Wood PA-C - 10/20/2024 1:54 PM EST OK to proceed with lap charbel as scheduled, as it was cleared by Dr. Reyes, anesthesia. [facility] Work Phone: 1(990) 329-259802-13-2025 Miscellaneous Notes* Telephone Encounter - Ailyn Wood PA-C - 10/20/2024 1:54 PM EST OK to proceed with lap charbel as scheduled, as it was cleared by Dr. Reyes, anesthesia. * Telephone Encounter - Ibis Stahl PA-C - 10/13/2024 3:[address] Vasquez, This patient was seen by me for virtual PACC update for upcoming ROBOTIC ASSISTED TOTAL KNEE ARTHROPLASTY left scheduled with you on 11/10. She was just added for laparoscopic cholecystectomy on 10/[address] Almanza (I apologize if he messaged you separately and this is duplicate question. I could not find his communication). Are you comfortable proceeding with her planned TKR with the timeline following her cholecystectomy? She also mentions that she has a broken tooth. She is going to have it extracted on 10/24. She denies infection. Would you be comfortable proceeding following recent dental work? Also including Dr. Almanza so he will be aware as well. I am also concerned about the timeline of her dental extraction because this can potentially affect airway for anesthesia and her mouth opening for intubation. I told her to please keep us up-to-date if there is an infection in that dental area. Thank you for your time and help, Ibis Stahl PA-C PACC documented in this encounterPrem[facility]02-12-2025 Telephone encounter Note * Telephone Encounter - Tanner Lala PSS - 10/19/2024 7:01 AM EST TOTAL JOINT COMPLETE CARE PROGRAM PRE-OPERATIVE TEACHING Service Date: 10/19/2024 Service Time: 7:03 AM Date of : 1960 Gender: female Date of Surgery: 11/10/24 Procedure: Left Total Knee Replacement Complete Care Program was discussed with the patient: Cma Identification: Patient identified a adult care manager to help when discharged to home: friend, lives with ex roommate Home Environment: Home Layout: 2 story, Entry Steps: 0, Bedroom Location: 1st floor, Bathroom Location: 1st floor, and walk in shower. Pt owns walker, cane. Discussed with patient importance of attending joint education class and provided date and times ofclass: YES declined, R TKA 08/30 Patient received Joint Education Binder: Yes Patient plans discharge home with [facility]. SIGNATURE: GEORGI Allen PATIENT NAME: Mariam Minaya DATE: October 19, 2024 TIME: 7:02 AM [facility]02-12-2025 Miscellaneous Notes* Telephone Encounter - Tanner Lala PSS - 10/19/2024 7:01 AM EST TOTAL JOINT COMPLETE CARE PROGRAM PRE-OPERATIVE TEACHING Service Date: 10/19/2024 Service Time: 7:03 AM Date of : 1960 Gender: female Date of Surgery: 11/10/24 Procedure: Left Total Knee Replacement Complete Care Program was discussed with the patient: Cma Identification: Patient identified a adult care manager to help when discharged to home: friend, lives with ex roommate Home Environment: Home Layout: 2 story, Entry Steps: 0, Bedroom Location: 1st floor, Bathroom Location: 1st floor, and walk in shower. Pt owns walker, cane. Discussed with patient importance of attending joint education class and provided date and times ofclass: YES declined, R TKA 08/30 Patient received Joint Education Binder: Yes Patient plans discharge home with [facility]. SIGNATURE: GEORGI Allen PATIENT NAME: Mariam Minaya DATE: October 19, 2024 TIME: 7:02 AM documented in this encounterPrem[facility]02-06-2025 Telephone encounter Note * Telephone Encounter - Luara Robertson MD - 10/13/2024 4:19 PM EST She may cut down to taking one pill of her current dose of Qsymia every other day for the next week, then hold it until after her surgeries. At that point we can re-evaluate whether she needs it or not, but I think she will be fine to stay off it Laura Robertson MD [facility]02-06-2025 Miscellaneous Notes* Telephone Encounter - Laura Robertson MD - 10/13/2024 4:19 PM EST She may cut down to taking one pill of her current dose of Qsymia every other day for the next week, then hold it until after her surgeries. At that point we can re-evaluate whether she needs it or not, but I think she will be fine to stay off it Laura Robertson MD * Telephone Encounter - Ibis Stahl PA-C - 10/13/2024 2:48 PM EST Mariam Minaya Female, 64 year old, 1960 eMRN: [id number] Good afternoon Dr. Robertson, This patient was seen by me for virtual PACC for upcoming LAPAROSCOPIC CHOLECYSTECTOMY POSSIBLE OPEN scheduled 10/[address] Almanza and ROBOTIC ASSISTED TOTAL KNEE ARTHROPLASTY left scheduled with Dr. Vasquez on 11/10. The patient is on Qsymia. With the high dose of medication (which she is on), typically we recommend that this medication be tapered then held 7 days prior to procedure. Are you able to review if shecan hold it for this procedure. If so, can you let us know how you'd like her to taper/hold it? Also, please note that her current BMI is 21.4. She mentions she has lost about 40 pounds between taking the medication and also having the GI symptoms which led to her gallstone diagnosis. She was wondering if you were going to recommend her going off the medication the next time she saw you. Thank you for your time and help, Ibis Stahl PA-C PACC documented in this encounterPremier [facility]02-06-2025 Telephone encounter Note * Telephone Encounter - Ibis Stahl PA-C - 10/13/2024 3:[address] Vasquez, This patient was seen by me for virtual PACC update for upcoming ROBOTIC ASSISTED TOTAL KNEE ARTHROPLASTY left scheduled with you on 11/10. She was just added for laparoscopic cholecystectomy on 10/[address] Almanza (I apologize if he messaged you separately and this is duplicate question. I could not find his communication). Are you comfortable proceeding with her planned TKR with the timeline following her cholecystectomy? She also mentions that she has a broken tooth. She is going to have it extracted on 10/24. She denies infection. Would you be comfortable proceeding following recent dental work? Also including Dr. Almanza so he will be aware as well. I am also concerned about the timeline of her dental extraction because this can potentially affect airway for anesthesia and her mouth opening for intubation. I told her to please keep us up-to-date if there is an infection in that dental area. Thank you for your time and help, Ibis Stahl PA-C PACC [facility]02-06-2025 Telephone encounter Note* Telephone Encounter - Ibis Stahl PA-C - 10/13/2024 2:48 PM EST Mariam Minaya Female, 64 year old, 1960 eMRN: [id number] Good afternoon Dr. Robertson, This patient was seen by me for virtual PACC for upcoming LAPAROSCOPIC CHOLECYSTECTOMY POSSIBLE OPEN scheduled 10/[address] Almanza and ROBOTIC ASSISTED TOTAL KNEE ARTHROPLASTY left scheduled with Dr. Vasquez on 11/10. The patient is on Qsymia. With the high dose of medication (which she is on), typically we recommend that this medication be tapered then held 7 days prior to procedure. Are you able to review if shecan hold it for this procedure. If so, can you let us know how you'd like her to taper/hold it? Also, please note that her current BMI is 21.4. She mentions she has lost about 40 pounds between taking the medication and also having the GI symptoms which led to her gallstone diagnosis. She was wondering if you were going to recommend her going off the medication the next time she saw you. Thank you for your time and help, Ibis Stahl PA-C PACC [facility]02-06-2025 Instructions* Patient Instructions* Ibis Stahl PA-C - 10/13/2024 1:30 PM EST Images from the original note were not included. [facility] PATIENT PREOPERATIVE INSTRUCTIONS Dexter Almanza MD has scheduled you for your procedure at this [facility] center: [facility]: [phone] -- [address] [address]. Please read below carefully for your personalized instructions. Dietary Restrictions: - No solid food after midnight. - You may have 12 ounces of clear liquids (water, clear juices such as apple juice or gatorade, carbonated beverages, clear tea, black coffee, jello) until 2 hours before scheduled arrival at facility. -We recommend getting up early enough to have a bottle of water or gatorade in the morning before surgery, but no matter what you must STOP drinking 2 hours before arrival Medications: Unless instructed differently below, stay on all of your medications until your surgery. If you start any new medications after today's visit, please contact your surgeon. Pre-Surgery Med Instructions Medication Instructions ibuprofen (MOTRIN) 600 mg tablet Stop 7 days before surgery ondansetron orally disintegrating (ZOFRAN ODT) 4 mg disintegrating tablet Ok to take the morning ofsurgery (if needed) with a small sip of water [START ON 11/05/2024] mupirocin (BACTROBAN) 2 % ointment Start using your Mupirocin nasal ointment twice daily for 5 days prior to total knee surgery and once on the morning of surgery. pantoprazole DR (PROTONIX) 20 mg tablet Take the day of surgery with a small sip of water acetaminophen (TYLENOL) 500 mg tablet Ok to take the morning of surgery (if needed) with a small sip of water gabapentin (NEURONTIN) 300 mg capsule Take the day of surgery with a small sip of water phentermine-topiramate ER (QSYMIA) 15-92 mg 24 Hr Capsule I am checking with your prescribing physician for instructions on holding this. gabapentin (NEURONTIN) 600 mg tablet Take the day of surgery with a small sip of water levothyroxine (SYNTHROID) 112 mcg tablet Take the day of surgery with a small sip of water hydrOXYchloroQUINE (PLAQUENIL) 200 mg tablet Take the day of surgery with a small sip of water If you start any new medications after today's visit, please contact the surgeon's office. If you are currently using a phim-lmn-bjyw injectable or oral medication for diabetes or weight loss such as Dulaglutide (Trulicity), Exenatide (Byetta, Bydureon), Liraglutide (Victoza, Saxenda), Semaglutide (Ozempic, Wegovy, Rybelsus), or Tirzepatide (Mounjaro), the medicine should be stopped at least 7 days before surgery. These medicines can cause food to remain in your stomach for a very longtime and increase the risks from surgery and anesthesia. Not stopping the medication for a long enough time may result in your surgery being rescheduled. Blood Thinning Medications: - Stop NSAIDS (Ibuprofen, Advil, Aleve, Motrin, Celebrex, Mobic, etc.) 7 days before surgery, as directed by your surgeon. - Stop Aspirin 7 days before surgery, as directed by your surgeon. - Stop ALL herbal and dietary supplements 7 days before surgery. - You may take Tylenol (Acetaminophen) or any of your pain medications that do not contain aspirin or NSAIDS as needed. Important Reminders: - Candy, mints, and tobacco products are NOT permitted the morning of surgery. - Hearing aids, dentures and glasses may be worn the morning of surgery. - NO jewelry, body piercings, makeup, hairpins or contacts are to be worn the day of surgery. If you develop symptoms such as a fever, cold, or flu, or have other changes to your health within TWO DAYS of scheduled surgery or the morning of surgery, please contact the surgery center above. Personal Belongings: -Please have photo ID and insurance cards. -If you do not have a copy of advance directives on file with us, please bring a copy with you on the day of surgery. - Leave ALL valuables and money at home or with family members. - Please bring high-quality footwear, such as sneakers, to the hospital for ambulating post-surgery. For Outpatient Procedures: - YOU MUST HAVE A RESPONSIBLE SALES MARKET LEADER TAKE YOU HOME. A FILE CLERK OR ASSEMBLY INSPECTOR HELPER CANNOT BE MADE A RESPONSIBLE SALES MARKET LEADER. - We recommend that a responsible person stays with you overnight to take care of you. - You cannot stay in a hotel alone after outpatient surgery. You will not be permitted to have yoursurgery, if you do not have someone to take care of you. Arrival Time for Surgery: - The Surgery Center or hospital where you are having surgery will call the afternoon before surgery (or Thursday for Thursday surgery) with a scheduled arrival time. - If you have not heard by 4 pm, please contact the surgery center above. Please be aware that emergency situations arise, which may delay or change your surgical time. If this happens, we will notify you as soon as possible and regret any inconvenience. If you already have an Advance Directive, please fax a copy to [phone] or email to for it to be added to your chart. If you do not have an Advance Directive, you can find the appropriate form and more information at [email or web address]. We recommend that youcomplete the Advance Directive form found on the website and bring it with you the day of your surgery. It can be witnessed and scanned into your chart that day. Ibis Stahl PA-C documented in this encounterPremier Health [facility]02-06-2025 History and physical note * Ibis Stahl PA-C - 10/13/2024 1:01 PM EST PREANESTHESIA CONSULT CLINIC TELEHEALTH VISIT Patient has been identified by name and date of : Yes This is a virtual visit using [employer]om Video Visit. It require patient- provider interaction forthe medical decision making as documented below. Reason for contact: PACC visit Accompanied by: Self Scheduled Surgery: LAPAROSCOPIC CHOLECYSTECTOMY POSSIBLE OPEN ROBOTIC ASSISTED TOTAL KNEE ARTHROPLASTY left I have communicated my name and active licensure. The patient's identity and physical location wereverified at the time of this visit. Either the patient or their legal pharmacy services representative has been informed of the risks and benefits of -- and alternatives to -- treatment through a remote evaluation andconsents to proceed with the evaluation remotely. ASSESSMENT: 1. Preop examination Scheduled for above procedure 2. History of weight loss Patient is on Qsymia for weight loss. She is also lost weight due to mid-September episode of GI symptoms (see HPI), knee surgery and health issues.. She states has overall lost about 40 pounds. Her current BMI is 21. Message sent to PCP to discuss Qsymia hold for planned procedure (and whether patient should continue this medication) 3. Gastroesophageal reflux disease, unspecified whether esophagitis present Patient reports that symptoms are controlled on Protonix. Patient will continue this medication. Stable. 4. Postoperative hypothyroidism On Synthroid. Patient has a history of thyroid cancer status post thyroidectomy and radioactive iodine. She is asymptomatic and feeling well. Most recent TSH was normal 5. History of recent steroid use Patient was on prednisone 2.5 mg starting 10/05 for 10 days. She will finish this medication tomorrow. She reports she was on this for knee pain/inflammation 6. 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) 7. Sjogren's syndrome, with unspecified organ involvement (HCC) SLE Patient is maintained on Plaquenil daily. She states she was previously on infusions, but they havebeen on hold in preparation for her total knee replacement surgeries. 8. Dental fracture Patient reports she has a broken right tooth. She denies infection or pain, but is scheduled to have it extracted on 10/24. Encouraged patient to please keep us updated if she is found to have infection in that area. Message sent to notify both surgeons and anesthesiologist of this 9. Neuropathy Orthostatic lightheadedness Patient was seen by neurology team for evaluation. She states she has neuropathy in her feet and was having orthostatic lightheadedness. BP 10/11/2024 was 118/78 The orthostatic lightheadedness was especially significant this past summer, but has greatly improved. She reports that her symptoms are very infrequent now. She denies syncope. The neurology provider requested a tilt table test and blood work. Message sent to see if this needs to be completed prior to planned procedure METS: Walk indoors, such as around the house (1.75 METs) Do light work around the house, such as dusting or washing dishes (2.70 METs) Take care of self; that is eating, dressing, bathing, using the toilet (2.75 METs) Walk a block or two on level ground (2.75 METs) Do moderate work around the house such as vacuuming, sweeping floors, or carrying in groceries (3.50 METs) Climb a flight of stairs or walk up a hill (5.50 METs) Patient denies any chest pain or undue shortness of breath with the above physical activity. Home PT exercises, cares for 14 dogs, walked 1 mile the other day (had recent TKR) Denies orthopnea, syncope, edema ANESTHESIA FINDINGS: Intubation History: No history of difficult intubation Significant Anesthesia Considerations: Patient reports pain medication was delayed in the hospital which led to worse pain than anticipated when the block wore off Prolonged awakening once - had worked the night before. Resolved with being given food. Airway Exam: General: Normal appearance Mallampati Score is CLASS II ULBT: Class I - Lower incisors can bite the upper lip above the poli line Neck: Normal appearance and function Mouth: Normal tongue size and Mouth opening greater than 2 finger breaths Dentition: right broken tooth is being removed on 10/24. She denies infection Airway History: No abnormal airway history STOP BANG Score: Criteria: Age over 50 (64 year old) Score = 1 Subjective CHIEF COMPLAINT: No chief complaint on file. HPI: This is a 64 year old female who presents with episode of flu symptoms that brought her to the ED on 09/23/2024. She had nausea, vomiting, chills and sweating. She was found to have RUQ tenderness and imaging revealed gallstones. She also reports left knee pain for the last 2 years. Her pain is 6-7/10 and sharp/throbbing quality. It has become more obvious following right TKR. She elects toproceed with above procedures. ACTIVE PROBLEM LIST Vitamin D Deficiency Overweight (Bmi 25.0-29.9) Chronic Bilateral Low Back Pain With Sciatica Gerd (Gastroesophageal Reflux Disease) Postoperative Hypothyroidism Thyroid Cancer (Hcc) Sjogren's Syndrome (Hcc) Ra (Rheumatoid Arthritis) (Hcc) Psoriasis With Arthropathy (Hcc) Primary Fibromyalgia Syndrome Neck Pain Insomnia Chronic Kidney Insufficiency, Stage 3 (Moderate) (Hcc) Psoriasis Encounter for Gynecological Examination Constipation Encounter for Screening Mammogram for Breast Cancer Encounter for Screening for Diabetes Mellitus Sob (Shortness of Breath) Osteopenia Seropositive Rheumatoid Arthritis (Hcc) Seropositive Rheumatoid Arthritis of Multiple Joints (Hcc) Bilateral Primary Osteoarthritis of Knee Chronic Pain of Left Knee Primary Osteoarthritis of Both Knees S/P Total Knee Arthroplasty, Right PAST MEDICAL HISTORY Diagnosis Date Astigmatism, regular 12/22/2015 Chronic bilateral low back pain with sciatica 12/10/2015 Chronic kidney insufficiency, stage 3 (moderate) (HCC) 04/06/2018 Encounter for gynecological examination 05/03/2019 [facility]. 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 RA (rheumatoid arthritis) (HCC) + RF, +CCP OVERLAP PsA (+NAIL disease, dactylitis, axial inflammatory sx) Sjogren's syndrome (HCC) Neg SSA SSB in January 2009 Thyroid cancer (HCC) 09/07/[address] Maldonado removed, radioactive iodine ablation. papillary Vitamin D deficiency PAST SURGICAL HISTORY Procedure Laterality Date BREAST AUGMENTATION W/PROSTHETIC IMPLANT 2000 bilateral implants BX BREAST PERC NEED W/GUID 10/29/2011 U/S needle core left axillary LN COLONOSCOPY FLX DX W/COLLJ SPEC WHEN PFRMD 09/07/2010 Colonoscopy, repeat 10 yrs EGD TRANSORAL BIOPSY SINGLE/MULTIPLE 11/06/2006 Hiatal hernia, gastritis, retained food ESOPHAGOGASTRODUODENOSCOPY TRANSORAL DIAGNOSTIC EGD ESOPHAGOGASTRODUODENOSCOPY TRANSORAL DIAGNOSTIC 03/15/2015 EGD FNA (FINE NEEDLE ASPIRATION) 10/15/2006 U/S FNA right thyroid nodule FNA WITH IMAGING 09/22/2011 U/S FNA left axillary mass KNEE ARTHROSCOPY Left 2009 LIG/TRNSXJ FLP TUBE ABDL/VAG APPR UNI/BI Tubal ligation NEUROPLASTY &/TRANSPOS MEDIAN NRV CARPAL TUNNE Left 05/30/2016 Carpal tunnel decomp NEUROPLASTY &/TRANSPOS MEDIAN NRV CARPAL TUNNE Right 09/26/2016 Carpal tunnel decomp PAST SURGICAL HISTORY OF 2010 removal of implants & replace & pannilectomy SYNOVECTOMY EACH 1999 left wrist THYROIDECTOMY TOTAL/COMPLETE 11/10/2006 TONSILLECTOMY & ADENOIDECTOMY Tonsillectomy TOTAL KNEE REPLACEMENT Right 08/2024 VAGINAL HYSTERECTOMY UTERUS 250 GM/< 2003 Hysterectomy, vaginal FAMILY HISTORY Problem Relation Age of Onset None Mother Cancer Father Breast Cancer Sister Thyroid Sister cancer s/p thyroidectomy Diabetes Brother from type I dx/d age 9 Diabetes Grandchild Type I age 8 Anesthesia Problems No Family History Social History Tobacco Use Smoking status: Never Passive exposure: Never Smokeless tobacco: Never Vaping Use Vaping status: Never Used Substance Use Topics Alcohol use: No Comment: rare ; deo. wine Drug use: No ALLERGIES Allergen Reactions Humira [Adalimumab] Hives welt at injection site Tessalon [Benzonata* Other: See Comments hypersensitive Albuterol Other: See Comments severe leg cramps Amicar [Aminocaproi* Rash Flovent [Fluticason* Rash Methotrexate Contraindication-Medical Surgical elevated liver enz MEDICATIONS: Current Outpatient Medications Medication Sig ibuprofen (MOTRIN) 600 mg tablet TAKE ONE TABLET BY MOUTH EVERY 6 HOURS, START ONE DAY PRE-OP ondansetron orally disintegrating (ZOFRAN ODT) 4 mg disintegrating tablet THREE TIMES A DAY as needed for nausea and vomiting [START ON 11/05/2024] mupirocin (BACTROBAN) 2 % ointment Apply 0.5 inch with cotton swab (Q-tip) to each nostril in the morning and evening for 5 days prior to and including day of surgery. Patient should start on November 05, [address]. pantoprazole DR (PROTONIX) 20 mg tablet Take 1 tablet by mouth once daily. acetaminophen (TYLENOL) 500 mg tablet Take 2 tablets by mouth every 8 hours as needed for pain. gabapentin (NEURONTIN) 300 mg capsule Take 1 capsule by mouth three times a day for 90 days. Take with 600 mg of Gabapentin phentermine-topiramate ER (QSYMIA) 15-92 mg 24 Hr Capsule Take 1 capsule by mouth once daily gabapentin (NEURONTIN) 600 mg tablet Take 1 tablet by mouth three times a day for 180 days. levothyroxine (SYNTHROID) 112 mcg tablet Take 1 tablet by mouth once daily. Take on empty stomach. For thyroid hydrOXYchloroQUINE (PLAQUENIL) 200 mg tablet Take 1 and a half tablets by mouth once daily. Biotin 1 mg tab Take 1 tablet by mouth once daily. predniSONE (DELTASONE) 2.5 mg tablet Take 1 tablet by mouth two times a day for 10 days. amoxicillin (AMOXIL) 500 mg capsule Take 2 capsules three times a day, starting one day prior dental appointments/procedures and on the day of the dental procedure (two days for 6 doses total) ascorbic acid, vitamin C, (VITAMIN C) 500 mg tablet Take 1 tablet by mouth two times a day with meals for 28 doses. Cholecalciferol, Vitamin D3, 50 mcg (2,000 unit) cap Take 1 capsule by mouth twice daily. vitamin b complex tab Take 1 tablet by mouth once daily. No current facility-administered medications for this visit. COVID-19 Immunization Status Discontinued - Covid-19 Vaccine Discontinued 09/30/2024 Frequency changed to Never by Teagan Noble LPN (Patient Preference) Had COVID-19 last 2 years ago. Denies hospitalization. She has ongoing distorted taste REVIEW OF SYSTEMS: Pain Assessment: General: Intentional (with Qsymia) and unintentional weight loss (with flu like symptoms mid September) - has lost 40# Neuro: No history of TIA's, stroke, OBSTETRICS NURSE PRACTITIONER tumor, impaired sensorium, hemiplegia, paraplegia or quadraplegia. No neurological symptoms or problems. Respiratory: No history of current cough or dyspnea, or pneumonia in the past 6 weeks. No history of respiratory/pulmonary symptoms or problems. Cardiovascular: No history of HTN requiring medication, no history of angina, CHF, DC, cardiac surgery or stents. Denies rest pain, gangrene or revascularization/amputation for PVD. No history of cardiovascular symptoms or problems. Occasional orthostatic lightheadedness was occurring last summer - has greatly improved, Now very infrequent. No syncope. Doing well GI: Positive for GERD, Negative for Hepatitis, Pancreatitis, see HPI : No history of dysuria, frequency or incontinence,, stones or chronic kidney disease VACCINE SPECIALIST: Negative for abnormal vaginal bleeding, abnormal vaginal discharge. : N/A, No LMP recorded. Patient has had a hysterectomy. Endocrine: Hypothyroidism Denies DM/symptoms Patient was on Prednisone 2.5 mg bid x 10 days starting 10/05 Hematology: No history of bleeding or clotting disorder. Pt is not taking anti- coagulation or platelet medications. No history of hematological symptoms or problems. Oncology: History of thyroid cancer s/p radioactive iodine and surgery. Psych: No history of psychiatric symptoms or problems. Denies PTSD Musculoskeletal: Sjogren's, Lupus, RA - on Plaquenil, see HPI Previous Orencia infusions were held prior to previous TKR Skin: Negative for lesions, rash and itching. Objective PHYSICAL EXAM: Pulse 64[patient counted[ Ht 5' 6[patient reported[ (1.68m) Wt 133 lb (60.3kg) BMI 21.48 kg/(m^2). VIDEO EXAM: (if completed, exam performed via video enabled technology) GENERAL: alert and appropriate, in no distress, well-hydrated, well nourished, and happy, smiling, interactive HEAD: normocephalic, no abnormality or lesion noted EYES: no injection NOSE: external nose normal without rhinorrhea NECK: full ROM RESPIRATORY: breathing non-labored and no grunting/flaring/retractions CHEST: equal chest rise with normal respiratory effort HEART: Patient confirmed radial pulse and counted aloud with regular rhythm. HR 64 BPM. No cyanosis ABDOMEN: soft and non-tender NEUROLOGIC: no cerebral deficits noted Diagnostic tests reviewed for today's visit: Lab Value Units Date High Low HB 10.5 g/dL 08/24/2024 15.5 11.5 HCT 32.6 % 08/24/2024 46.0 36.0 WBC 10.75 k/uL 08/24/2024 11.00 3.70 PLT 219 k/uL 08/24/2024 400 150 NA 137 mmol/L 08/24/2024 144 136 K 4.6 mmol/L 08/24/2024 5.1 3.7 GLUC 99 mg/dL 08/24/2024 99 74 BUN 15 mg/dL 08/24/2024 21 7 CREAT 0.84 mg/dL 08/24/2024 0.96 0.58 PTSEC No results within date range. INR No results within date range. APTT No results within date range. ALT 18 U/L 08/08/2024 38 7 AST 24 U/L 08/08/2024 35 13 TBILI 0.3 mg/dL 08/08/2024 1.3 0.2 TSH 0.853 mIU/L 09/30/2024 4.200 0.270 Hemoglobin A1C (%) Date Value 05/03/2019 5.4 12/27/2014 5.5 CXR 09/2024 (care everywhere) IMPRESSION: No evidence of active intrathoracic disease. CT brain 09/2024 (care everywhere) IMPRESSION: No acute intracranial abnormality. EKG 05/23/2024 (care everywhere) EKG was sinus rhythm rate 81 no acute signs of DC nor ischemia nor dysrhythmia. PLAN: This patient is optimally prepared for surgery pending labs ordered by surgeon, discussion with neurologist, discussion with surgeons, discussion with anesthesia about dental extraction. Patient was given updated mupirocin instructions for TKR. She states she does not need a refill of this medication . CONSULTS: Patient does not require consults for optimization at this time. The Following Tests/Procedures Have Been Initiated: Labs ordered per surgeon Planned Anesthetic: Per anesthesia choice Instructions Given to Patient: Patient given verbal instructions and voices comprehension and compliance. Copy sent electronically via My Chart, email, or mobile device. This is a virtual visit. It required patient-provider interaction for the medical decision making as documented above. SIGNATURE: Ibis Stahl PA-C PATIENT NAME: Mariam Minaya DATE: 10/13/2024 TIME: 1:00 PM PAGER/CONTACT #: [facility]02-06-2025 History and physical note* Ibis Stahl PA-C - 10/13/2024 1:01 PM EST PREANESTHESIA CONSULT CLINIC TELEHEALTH VISIT Patient has been identified by name and date of : Yes This is a virtual visit using [employer] Video Visit. It require patient- provider interaction forthe medical decision making as documented below. Reason for contact: PACC visit Accompanied by: Self Scheduled Surgery: LAPAROSCOPIC CHOLECYSTECTOMY POSSIBLE OPEN ROBOTIC ASSISTED TOTAL KNEE ARTHROPLASTY left I have communicated my name and active licensure. The patient's identity and physical location wereverified at the time of this visit. Either the patient or their legal pharmacy services representative has been informed of the risks and benefits of -- and alternatives to -- treatment through a remote evaluation andconsents to proceed with the evaluation remotely. ASSESSMENT: 1. Preop examination Scheduled for above procedure 2. History of weight loss Patient is on Qsymia for weight loss. She is also lost weight due to mid-September episode of GI symptoms (see HPI), knee surgery and health issues.. She states has overall lost about 40 pounds. Her current BMI is 21. Message sent to PCP to discuss Qsymia hold for planned procedure (and whether patient should continue this medication) 3. Gastroesophageal reflux disease, unspecified whether esophagitis present Patient reports that symptoms are controlled on Protonix. Patient will continue this medication. Stable. 4. Postoperative hypothyroidism On Synthroid. Patient has a history of thyroid cancer status post thyroidectomy and radioactive iodine. She is asymptomatic and feeling well. Most recent TSH was normal 5. History of recent steroid use Patient was on prednisone 2.5 mg starting 10/05 for 10 days. She will finish this medication tomorrow. She reports she was on this for knee pain/inflammation 6. 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) 7. Sjogren's syndrome, with unspecified organ involvement (HCC) SLE Patient is maintained on Plaquenil daily. She states she was previously on infusions, but they havebeen on hold in preparation for her total knee replacement surgeries. 8. Dental fracture Patient reports she has a broken right tooth. She denies infection or pain, but is scheduled to have it extracted on 10/24. Encouraged patient to please keep us updated if she is found to have infection in that area. Message sent to notify both surgeons and anesthesiologist of this 9. Neuropathy Orthostatic lightheadedness Patient was seen by neurology team for evaluation. She states she has neuropathy in her feet and was having orthostatic lightheadedness. BP 10/11/2024 was 118/78 The orthostatic lightheadedness was especially significant this past summer, but has greatly improved. She reports that her symptoms are very infrequent now. She denies syncope. The neurology provider requested a tilt table test and blood work. Message sent to see if this needs to be completed prior to planned procedure METS: Walk indoors, such as around the house (1.75 METs) Do light work around the house, such as dusting or washing dishes (2.70 METs) Take care of self; that is eating, dressing, bathing, using the toilet (2.75 METs) Walk a block or two on level ground (2.75 METs) Do moderate work around the house such as vacuuming, sweeping floors, or carrying in groceries (3.50 METs) Climb a flight of stairs or walk up a hill (5.50 METs) Patient denies any chest pain or undue shortness of breath with the above physical activity. Home PT exercises, cares for 14 dogs, walked 1 mile the other day (had recent TKR) Denies orthopnea, syncope, edema ANESTHESIA FINDINGS: Intubation History: No history of difficult intubation Significant Anesthesia Considerations: Patient reports pain medication was delayed in the hospital which led to worse pain than anticipated when the block wore off Prolonged awakening once - had worked the night before. Resolved with being given food. Airway Exam: General: Normal appearance Mallampati Score is CLASS II ULBT: Class I - Lower incisors can bite the upper lip above the poli line Neck: Normal appearance and function Mouth: Normal tongue size and Mouth opening greater than 2 finger breaths Dentition: right broken tooth is being removed on 10/24. She denies infection Airway History: No abnormal airway history STOP BANG Score: Criteria: Age over 50 (64 year old) Score = 1 Subjective CHIEF COMPLAINT: No chief complaint on file. HPI: This is a 64 year old female who presents with episode of flu symptoms that brought her to the ED on 09/23/2024. She had nausea, vomiting, chills and sweating. She was found to have RUQ tenderness and imaging revealed gallstones. She also reports left knee pain for the last 2 years. Her pain is 6-7/10 and sharp/throbbing quality. It has become more obvious following right TKR. She elects toproceed with above procedures. ACTIVE PROBLEM LIST Vitamin D Deficiency Overweight (Bmi 25.0-29.9) Chronic Bilateral Low Back Pain With Sciatica Gerd (Gastroesophageal Reflux Disease) Postoperative Hypothyroidism Thyroid Cancer (Hcc) Sjogren's Syndrome (Hcc) Ra (Rheumatoid Arthritis) (Hcc) Psoriasis With Arthropathy (Hcc) Primary Fibromyalgia Syndrome Neck Pain Insomnia Chronic Kidney Insufficiency, Stage 3 (Moderate) (Hcc) Psoriasis Encounter for Gynecological Examination Constipation Encounter for Screening Mammogram for Breast Cancer Encounter for Screening for Diabetes Mellitus Sob (Shortness of Breath) Osteopenia Seropositive Rheumatoid Arthritis (Hcc) Seropositive Rheumatoid Arthritis of Multiple Joints (Hcc) Bilateral Primary Osteoarthritis of Knee Chronic Pain of Left Knee Primary Osteoarthritis of Both Knees S/P Total Knee Arthroplasty, Right PAST MEDICAL HISTORY Diagnosis Date Astigmatism, regular 12/22/2015 Chronic bilateral low back pain with sciatica 12/10/2015 Chronic kidney insufficiency, stage 3 (moderate) (HCC) 04/06/2018 Encounter for gynecological examination 05/03/2019 Seeing the [facility]. 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 RA (rheumatoid arthritis) (HCC) + RF, +CCP OVERLAP PsA (+NAIL disease, dactylitis, axial inflammatory sx) Sjogren's syndrome (HCC) Neg SSA SSB in January 2009 Thyroid cancer (HCC) 09/07/[address] Maldonado removed, radioactive iodine ablation. papillary Vitamin D deficiency PAST SURGICAL HISTORY Procedure Laterality Date BREAST AUGMENTATION W/PROSTHETIC IMPLANT 2000 bilateral implants BX BREAST PERC NEED W/GUID 10/29/2011 U/S needle core left axillary LN COLONOSCOPY FLX DX W/COLLJ SPEC WHEN PFRMD 09/07/2010 Colonoscopy, repeat 10 yrs EGD TRANSORAL BIOPSY SINGLE/MULTIPLE 11/06/2006 Hiatal hernia, gastritis, retained food ESOPHAGOGASTRODUODENOSCOPY TRANSORAL DIAGNOSTIC EGD ESOPHAGOGASTRODUODENOSCOPY TRANSORAL DIAGNOSTIC 03/15/2015 EGD FNA (FINE NEEDLE ASPIRATION) 10/15/2006 U/S FNA right thyroid nodule FNA WITH IMAGING 09/22/2011 U/S FNA left axillary mass KNEE ARTHROSCOPY Left 2009 LIG/TRNSXJ FLP TUBE ABDL/VAG APPR UNI/BI Tubal ligation NEUROPLASTY &/TRANSPOS MEDIAN NRV CARPAL TUNNE Left 05/30/2016 Carpal tunnel decomp NEUROPLASTY &/TRANSPOS MEDIAN NRV CARPAL TUNNE Right 09/26/2016 Carpal tunnel decomp PAST SURGICAL HISTORY OF 2010 removal of implants & replace & pannilectomy SYNOVECTOMY EACH 1999 left wrist THYROIDECTOMY TOTAL/COMPLETE 11/10/2006 TONSILLECTOMY & ADENOIDECTOMY <AGE 12 Tonsillectomy TOTAL KNEE REPLACEMENT Right 08/2024 VAGINAL HYSTERECTOMY UTERUS 250 GM/< 2003 Hysterectomy, vaginal FAMILY HISTORY Problem Relation Age of Onset None Mother Cancer Father Breast Cancer Sister Thyroid Sister cancer s/p thyroidectomy Diabetes Brother from type I dx/d age 9 Diabetes Grandchild Type I age 8 Anesthesia Problems No Family History Social History Tobacco Use Smoking status: Never Passive exposure: Never Smokeless tobacco: Never Vaping Use Vaping status: Never Used Substance Use Topics Alcohol use: No Comment: rare ; deo. wine Drug use: No ALLERGIES Allergen Reactions Humira [Adalimumab] Hives welt at injection site Tessalon [Benzonata* Other: See Comments hypersensitive Albuterol Other: See Comments severe leg cramps Amicar [Aminocaproi* Rash Flovent [Fluticason* Rash Methotrexate Contraindication-Medical Surgical elevated liver enz MEDICATIONS: Current Outpatient Medications Medication Sig ibuprofen (MOTRIN) 600 mg tablet TAKE ONE TABLET BY MOUTH EVERY 6 HOURS, START ONE DAY PRE-OP ondansetron orally disintegrating (ZOFRAN ODT) 4 mg disintegrating tablet THREE TIMES A DAY as needed for nausea and vomiting [START ON 11/05/2024] mupirocin (BACTROBAN) 2 % ointment Apply 0.5 inch with cotton swab (Q-tip) to each nostril in the morning and evening for 5 days prior to and including day of surgery. Patient should start on November 05, [address]. pantoprazole DR (PROTONIX) 20 mg tablet Take 1 tablet by mouth once daily. acetaminophen (TYLENOL) 500 mg tablet Take 2 tablets by mouth every 8 hours as needed for pain. gabapentin (NEURONTIN) 300 mg capsule Take 1 capsule by mouth three times a day for 90 days. Take with 600 mg of Gabapentin phentermine-topiramate ER (QSYMIA) 15-92 mg 24 Hr Capsule Take 1 capsule by mouth once daily gabapentin (NEURONTIN) 600 mg tablet Take 1 tablet by mouth three times a day for 180 days. levothyroxine (SYNTHROID) 112 mcg tablet Take 1 tablet by mouth once daily. Take on empty stomach. For thyroid hydrOXYchloroQUINE (PLAQUENIL) 200 mg tablet Take 1 and a half tablets by mouth once daily. Biotin 1 mg tab Take 1 tablet by mouth once daily. predniSONE (DELTASONE) 2.5 mg tablet Take 1 tablet by mouth two times a day for 10 days. amoxicillin (AMOXIL) 500 mg capsule Take 2 capsules three times a day, starting one day prior dental appointments/procedures and on the day of the dental procedure (two days for 6 doses total) ascorbic acid, vitamin C, (VITAMIN C) 500 mg tablet Take 1 tablet by mouth two times a day with meals for 28 doses. Cholecalciferol, Vitamin D3, 50 mcg (2,000 unit) cap Take 1 capsule by mouth twice daily. vitamin b complex tab Take 1 tablet by mouth once daily. No current facility-administered medications for this visit. COVID-19 Immunization Status Discontinued - Covid-19 Vaccine Discontinued 09/30/2024 Frequency changed to Never by Teagan Noble LPN (Patient Preference) Had COVID-19 last 2 years ago. Denies hospitalization. She has ongoing distorted taste REVIEW OF SYSTEMS: Pain Assessment: General: Intentional (with Qsymia) and unintentional weight loss (with flu like symptoms mid September) - has lost 40# Neuro: No history of TIA's, stroke, OBSTETRICS NURSE PRACTITIONER tumor, impaired sensorium, hemiplegia, paraplegia or quadraplegia. No neurological symptoms or problems. Respiratory: No history of current cough or dyspnea, or pneumonia in the past 6 weeks. No history of respiratory/pulmonary symptoms or problems. Cardiovascular: No history of HTN requiring medication, no history of angina, CHF, DC, cardiac surgery or stents. Denies rest pain, gangrene or revascularization/amputation for PVD. No history of cardiovascular symptoms or problems. Occasional orthostatic lightheadedness was occurring last summer - has greatly improved, Now very infrequent. No syncope. Doing well GI: Positive for GERD, Negative for Hepatitis, Pancreatitis, see HPI : No history of dysuria, frequency or incontinence,, stones or chronic kidney disease VACCINE SPECIALIST: Negative for abnormal vaginal bleeding, abnormal vaginal discharge. : N/A, No LMP recorded. Patient has had a hysterectomy. Endocrine: Hypothyroidism Denies DM/symptoms Patient was on Prednisone 2.5 mg bid x 10 days starting 10/05 Hematology: No history of bleeding or clotting disorder. Pt is not taking anti- coagulation or platelet medications. No history of hematological symptoms or problems. Oncology: History of thyroid cancer s/p radioactive iodine and surgery. Psych: No history of psychiatric symptoms or problems. Denies PTSD Musculoskeletal: Sjogren's, Lupus, RA - on Plaquenil, see HPI Previous Orencia infusions were held prior to previous TKR Skin: Negative for lesions, rash and itching. Objective PHYSICAL EXAM: Pulse 64[patient counted[ Ht 5' 6[patient reported[ (1.68m) Wt 133 lb (60.3kg) BMI 21.48 kg/(m^2). VIDEO EXAM: (if completed, exam performed via video enabled technology) GENERAL: alert and appropriate, in no distress, well-hydrated, well nourished, and happy, smiling, interactive HEAD: normocephalic, no abnormality or lesion noted EYES: no injection NOSE: external nose normal without rhinorrhea NECK: full ROM RESPIRATORY: breathing non-labored and no grunting/flaring/retractions CHEST: equal chest rise with normal respiratory effort HEART: Patient confirmed radial pulse and counted aloud with regular rhythm. HR 64 BPM. No cyanosis ABDOMEN: soft and non-tender NEUROLOGIC: no cerebral deficits noted Diagnostic tests reviewed for today's visit: Lab Value Units Date High Low HB 10.5 g/dL 08/24/2024 15.5 11.5 HCT 32.6 % 08/24/2024 46.0 36.0 WBC 10.75 k/uL 08/24/2024 11.00 3.70 PLT 219 k/uL 08/24/2024 400 150 NA 137 mmol/L 08/24/2024 144 136 K 4.6 mmol/L 08/24/2024 5.1 3.7 GLUC 99 mg/dL 08/24/2024 99 74 BUN 15 mg/dL 08/24/2024 21 7 CREAT 0.84 mg/dL 08/24/2024 0.96 0.58 PTSEC No results within date range. INR No results within date range. APTT No results within date range. ALT 18 U/L 08/08/2024 38 7 AST 24 U/L 08/08/2024 35 13 TBILI 0.3 mg/dL 08/08/2024 1.3 0.2 TSH 0.853 mIU/L 09/30/2024 4.200 0.270 Hemoglobin A1C (%) Date Value 05/03/2019 5.4 12/27/2014 5.5 CXR 09/2024 (care everywhere) IMPRESSION: No evidence of active intrathoracic disease. CT brain 09/2024 (care everywhere) IMPRESSION: No acute intracranial abnormality. EKG 05/23/2024 (care everywhere) EKG was sinus rhythm rate 81 no acute signs of DC nor ischemia nor dysrhythmia. PLAN: This patient is optimally prepared for surgery pending labs ordered by surgeon, discussion with neurologist, discussion with surgeons, discussion with anesthesia about dental extraction. Patient was given updated mupirocin instructions for TKR. She states she does not need a refill of this medication . CONSULTS: Patient does not require consults for optimization at this time. The Following Tests/Procedures Have Been Initiated: Labs ordered per surgeon Planned Anesthetic: Per anesthesia choice Instructions Given to Patient: Patient given verbal instructions and voices comprehension and compliance. Copy sent electronically via My Chart, email, or mobile device. This is a virtual visit. It required patient-provider interaction for the medical decision making as documented above. SIGNATURE: Ibis Stahl PA-C PATIENT NAME: Mariam Minaya DATE: 10/13/2024 TIME: 1:00 PM PAGER/CONTACT #: documented in this encounter[facility] Instructions* Patient Instructions* Daphne Fleming PA-C - 10/12/2024 12:55 PM EST Continue with B12 supplementation daily Laboratory studies Tilt table to look at your blood pressure and heart rate with position change Increase water intake to 60 ounces of water a day, lightest compression and up to the knee. Follow up after work up documented in this encounterPrem[facility]02-[facility]25 [facility] History of Present illness Narrative* Daphne Fleming PA-C - 10/12/2024 12:13 PM EST Images from the original note were not included. [facility] Name: Mariam Minaya Age: [age] year old Gender: female Primary Care Provider: Laura Robertson MD Consult requested for memory loss by . Recommendations will be communicated via shared medical record or US mail. Chief Complaint:New Patient (Memory, Vertigo- pt states her appt is for passing out, white matter seen on MRI, no memory issues per pt, fatigue) 10/12/2024 - General Neurology, Daphne Fleming PA-C ASSESSMENT ASSESSMENT/PLAN: 1. Neuropathy - ICD9: 355.9, ICD10: G62.9 (primary diagnosis) 2. Orthostatic dizziness - ICD9: 780.4, ICD10: R42 Patient with onset of orthostatic dizziness starting last summer. Notes it was very severe, gradually worsening over the span of 3 weeks. However, at the end of summer started to improve, around the time she started taking a B12 supplement. Notes that she still has episodes a few times a week but they are not as severe and less frequent. Notes before it was happening multiple times a day and she thought she was going to pass out, never did fully lose consciousness. Started happening when she was lying flat so she went to her primary care for further workup and MRI of the brain was negative. Over the last few months, she still has a few episodes a week and they are only occurring when she isstanding, improved significantly if she lays down or sits down. No presyncope. Does have chronic numbness and tingling over the last year to her feet but attributes this to rheumatoid arthritis, doeshave signs of neuropathy on lower extremities. Discussed could be treating the B12 deficiency as she has been taking this for a few months and notes her symptoms improved. Discussed further evaluation with neuropathy and will obtain basic blood work, deferring EMG testing at this time as she just had a right knee replacement and is scheduled for her left coming up. Discussed the tilt table test for further evaluation as her orthostatics are negative in the office and patient is amenable to this. In the interim, will encourage increased fluid intake, compression socks when she is upright. Patient originally scheduled for memory loss as well, but patient states this was over the last summer when she was under a lot of stress. This has since improved significantly. MRI of the brain without any significant atrophy. Patient agreeable to treatment plan of care at this time, questions were answered. Patient to follow-up as needed. Daphne Fleming PA-C Encounter Diagnosis ICD-10-CM 1. Neuropathy G62.9 METHYLMALONIC ACID PROT ELECT SERUM WITH JAZMYN AND INTERP THYROID STIMULATING HORMONE VITAMIN B12 HEMOGLOBIN A1C VITAMIN B1 (THIAMINE), WHOLE BLOOD VITAMIN B6/PYRIDOXIN 2. Orthostatic dizziness R42 TILT TABLE EVALUATION No follow-ups on file. Alzheimer's Society: Join to learn about many resources and supports for you, as the caregiver Community Resources: E.g. LIFE - A Dementia [facility] Foundation on the [place] side [facility]. FINGERNAIL TECHNICIAN/OT/PT: Speech therapy, Occupational therapy, Physical Therapy Driving: Do you have safety concerns? Power of Loan Analyst/ planning of the patient's will Project Lifesaver: Local police will keep records of your loved one if they tend to get lost, and will bring them home. Lifeline: emergency response button/necklace/bracelet Caregiver Health: Important to ensure you are taking care of your mental and physical health so youcan care for your loved one SW consult: Do you want a social work referral to understand what resources are available to you? (Bold if discussed). Chart, labs,and relevant images reviewed. HPI: MRI brain obtained in June 30 for dizziness and memory issues. Dizziness resolved but still having memory issues. This is a 64 year old female presenting with dizziness. Was also scheduled for memory loss but patient states this was last summer when she was under a lot of stress and has since improved. States that last summer she began experiencing significant dizziness described as lightheadedness and presyncope. States would happen multiple times a day, gradually worsening over 3 weeks. New onsetfor symptoms that she can think of other than significant stress. States she would have to sit downbut eventually became so bad that she would even get episodes of laying down. Describes a feeling that she was going to lose consciousness with tunnel vision. Did not lose consciousness or have any episodes of syncope when this occurred. It gradually started improving towards the end of summer and now she only has intermittent episodes. Cannot think of any etiology for onset including viral illness, medication change or trauma. Notes that in April, after her symptoms have started to improve she did start losing weight due to stress and poor taste due to chronic COVID. However, notes that shehad COVID about 2 years ago, not around time of symptom onset. Over the last few months she still had continued episodes but they are not as severe and are very less frequent. Only occur now when she is standing and improved significantly if she sits back down. No significant presyncope, just lightheadedness. Not worse at a certain time of day or after eating.Did note that she was told to take a B12 supplement so soon as she started this she noted some improvement. Does report some chronic numbness and tingling in the feet but attributes this to her rheumatoid arthritis. No history of diabetes, heavy alcohol use, chemotherapy or heavy metal exposure. Review of Systems ACTIVE PROBLEM LIST Vitamin D Deficiency Overweight (Bmi 25.0-29.9) Chronic Bilateral Low Back Pain With Sciatica Gerd (Gastroesophageal Reflux Disease) Postoperative Hypothyroidism Thyroid Cancer (Hcc) Sjogren's Syndrome (Hcc) Ra (Rheumatoid Arthritis) (Hcc) Psoriasis With Arthropathy (Hcc) Primary Fibromyalgia Syndrome Neck Pain Insomnia Chronic Kidney Insufficiency, Stage 3 (Moderate) ([facility]) Psoriasis Encounter for Gynecological Examination Constipation Encounter for Screening Mammogram for Breast Cancer Encounter for Screening for Diabetes Mellitus Sob (Shortness of Breath) Osteopenia Seropositive Rheumatoid Arthritis (Hcc) 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 RA (rheumatoid arthritis) (HCC) + RF, +CCP OVERLAP PsA (+NAIL disease, dactylitis, axial inflammatory sx) Sjogren's syndrome (HCC) Neg SSA SSB in January 2009 Thyroid cancer (HCC) 09/07/[address] Joel de los santos, radioactive iodine ablation. papillary Vitamin D deficiency Medications: Reviewed predniSONE (DELTASONE) 2.5 mg tablet Take 1 tablet by mouth two times a day for [address] (PROTONIX) 20 mg tablet Take 1 tablet by mouth once daily. amoxicillin (AMOXIL) 500 mg capsule Take 2 capsules three times a day, starting one day prior dental appointments/procedures and on the day of the dental procedure (two days for 6 doses total) ascorbic acid, vitamin C, (VITAMIN C) 500 mg tablet Take 1 tablet by mouth two times a day with meals for 28 doses. acetaminophen (TYLENOL) 500 mg tablet Take 2 tablets by mouth every 8 hours as needed for pain. gabapentin (NEURONTIN) 300 mg capsule Take 1 capsule by mouth three times a day for 90 days. Take with 600 mg of Gabapentin phentermine-topiramate ER (QSYMIA) 15-92 mg 24 Hr Capsule Take 1 capsule by mouth once daily gabapentin (NEURONTIN) 600 mg tablet Take 1 tablet by mouth three times a day for 180 days. levothyroxine (SYNTHROID) 112 mcg tablet Take 1 tablet by mouth once daily. Take on empty stomach. For thyroid hydrOXYchloroQUINE (PLAQUENIL) 200 mg tablet Take 1 and a half tablets by mouth once daily. Cholecalciferol, Vitamin D3, 50 mcg (2,000 unit) cap Take 1 capsule by mouth twice daily. vitamin b complex tab Take 1 tablet by mouth once daily. ALLERGIES Allergen Reactions Humira [Adalimumab] Hives welt at injection site Tessalon [Benzonata* Other: See Comments hypersensitive Albuterol Other: See Comments severe leg cramps Amicar [Aminocaproi* Rash Flovent [Fluticason* Rash Methotrexate Contraindication-Medical Surgical elevated liver enz FAMILY HISTORY Problem Relation Age of Onset None Mother Cancer Father Breast Cancer Sister Thyroid Sister cancer s/p thyroidectomy Diabetes Brother from type I dx/d age 9 Diabetes Grandchild Type I age 8 PAST SURGICAL HISTORY Procedure Laterality Date BREAST AUGMENTATION W/PROSTHETIC IMPLANT 2000 bilateral implants BX BREAST PERC NEED W/GUID 10/29/11 U/S needle core left axillary LN COLONOSCOPY FLX DX W/COLLJ SPEC WHEN PFRMD 09/07/2010 Colonoscopy, repeat 10 yrs EGD TRANSORAL BIOPSY SINGLE/MULTIPLE 11/06/06 Hiatal hernia, gastritis, retained food ESOPHAGOGASTRODUODENOSCOPY TRANSORAL DIAGNOSTIC EGD ESOPHAGOGASTRODUODENOSCOPY TRANSORAL DIAGNOSTIC 03/15/2015 EGD FNA (FINE NEEDLE ASPIRATION) 10/15/06 U/S FNA right thyroid nodule FNA WITH IMAGING 09/22/11 U/S FNA left axillary mass KNEE ARTHROSCOPY Left 2009 LIG/TRNSXJ FLP TUBE ABDL/VAG APPR UNI/BI Tubal ligation NEUROPLASTY &/TRANSPOS MEDIAN NRV CARPAL TUNNE Left 05/30/16 Carpal tunnel decomp NEUROPLASTY &/TRANSPOS MEDIAN NRV CARPAL TUNNE Right 09/26/2016 Carpal tunnel decomp PAST SURGICAL HISTORY OF 2010 removal of implants & replace & pannilectomy SYNOVECTOMY EACH 1999 left wrist THYROIDECTOMY TOTAL/COMPLETE 11/10/06 TONSILLECTOMY & ADENOIDECTOMY <AGE 12 Tonsillectomy VAGINAL HYSTERECTOMY UTERUS 250 GM/< 2003 Hysterectomy, vaginal Social History: Tobacco Use: Low Risk (10/12/2024) Patient History Smoking Tobacco Use: Never Smokeless Tobacco Use: Never Passive Exposure: Never Alcohol Use: Patient Declined (01/10/2024) AUDIT-C Frequency of Alcohol Consumption: Patient declined Average Number of Drinks: Patient declined Frequency of Binge Drinking: Patient declined PHYSICAL EXAM 10/12/24 1228 10/12/24 1239 10/12/24 1241 Orthostatic BP: 135/82 118/77 119/81 BP Site: Left Arm Left Arm Left Arm BP Position: Sitting Supine Standing Orthostatic Pulse: 88 74 85 SpO2: 100% Weight: 62.7 kg (138 lb 3.2 oz) Neurological Exam Cranial Nerves: Visual franz were full tested binocularly to finger counting in all 4 quadrants with no visual extinction. Pupils were equal and both reactive to light. Extraocular movements were full with no diplopia or nystagmus. Facial sensation was normal to light touch in V1 to V3. Facial strength was symmetric. Normal hearing grossly bilaterally. Palatal raise was symmetric. Shoulder shrug was symmetric. Tongue protrusion was symmetric with no fasciculations. Right Left Shoulder Abduction: 5 5 Elbow Extension 5 5 Elbow Flexion 5 5 Wrist Extension 5 5 Finger Extension 5 5 Finger Abduction 5 5 Right Left Hip Flexion Decreased due to pain due to recent knee surgery 5 Knee Extension 4+ 5 Knee Flexion 4+ 5 Dorsiflexion 5 5 Plantar Flexion 5 5 Rest tremor: absent Tone: Normal in all four limbs Reflexes: Right Left Brachioradialis 2 2 Biceps 2 2 Patella Deferred 2 Ankle 2 2 Sensory: normal to light touch bilaterally without simultagnosia. Decree sensation to temperature throughout the foot and improved at the ankle. Decreased vibration throughout the lower extremities. Slight decrease in temperature to the hands compared to the forearms. Coordination: Normal finger to nose testing bilaterally. Negative romberg. Normal gait. Labs: Lab Results Component Value Date HBA1C 5.4 05/03/2019 HBA1C 5.5 12/27/2014 Lab Results Component Value Date CHOL 261 05/03/2019 CHOL 192 01/18/2018 HDL 40 05/03/2019 HDL 49 01/18/2018 LDL 161 05/03/2019 LDL 130 01/18/2018 TG 302 05/03/2019 TG 67 01/18/2018 TSH Date Value Ref Range Status 09/30/2024 0.853 0.270 - 4.200 mIU/L Final Vitamin B12 Date Value Ref Range Status 09/20/2013 604 221 - 700 pg/mL Final Radiology: MRI Head/Brain - Last 2 Impressions MRI BRAIN WO/W IVCON Exam End: 06/09/2024 3:40 PM (Final result) Impression: IMPRESSION: Supratentorial white matter lesions in a nonspecific predominantly subcortical and periventricular distribution which may represent chronic microvascular ischemic changes, demyelinating disease, or chronic ... This note was dictated using Appinions speech recognition software and may contain some errors that were a result of the program not accurately transcribing what was dictated, despite efforts to make corrections. Note that unless urgent, test and MRI results will be discussed at next follow- up visit. PROMIS (Patient-Reported Outcomes Measurement Information System) is a set of person-centered measures that evaluates and monitors physical, social, and emotional health. It can be used with the general population and with individuals living with chronic conditions. PROMIS 10: PHYSICAL AND MENTAL HEALTH: 10/03/2024 PHQ-9 PHQ-2 Score 0 Brief Assessment of Cognitive Health (BACH) Results: The patient endorsed depression symptoms on PHQ-8[1]. The patient endorsed a level of stress. The patient reported getting about hours of sleep per night, which falls into the category based onNat[facility] Sleep Foundation Guidelines [2].They endorsed recent sleep problems. The patient s cognitive test performance was . When invalid, probability of cognitive impairment score should be disregarded. Probability of cognitive impairment [3]: % Above 50% - Probable cognitive impairment; Specialty evaluation may be warranted 20-50% - Possible cognitive impairment; Address moderate to severe depression and sleep issues and retest Below 20% - Very low chance of cognitive impairment Moderate to severe levels of depression or stress may contribute to subjective cognitive complaintsin the absence of cognitive impairment [1] Radha K, Stella TW, Chantell RL, Israel SAUMYA, Wally JT, Shaun AH. The PHQ- 8 as a measure of current depression in the general population. J Affect Disord. 2009;114(1-3):163-173. doi: 10.1016/j.kimmie.2008.06.026 [2] Jaclyn et al. National Sleep Foundation's sleep time duration recommendations: methodologyand results summary. Sleep Health. 2015 Mar;1(1):40- 43. doi: 10.1016/j.sleh.2014.12.010. [3] Renee RM, Janusz O, José Antonio AF, Duane DP. Automated detection of cognitive impairment in clinical practice. Medical Decision Making: Medical Decision Making Level: 1 - N/A I spent a total of 50 minutes on the date of the service which included preparing to see the patient, [id number] patient care, completing clinical documentation, obtaining and/or reviewing separately obtained history, performing a medically appropriate examination, counseling and educating the pat ient/family/caregiver, and ordering medications, tests, or procedures. documented in this encounterPrem[facility]02-[facility] Note* Addendum Note - Dexter Almanza MD - 10/11/2024 1:27 PM ESTAddended by: DEXTER ALMANZA on: 10/11/2024 01:27 PM Modules accepted: Orders [facility]02-04-2025 Miscellaneous Notes* Addendum Note - Dexter Almanza MD - 10/11/2024 1:27 PM ESTAddended by: DEXTER ALMANZA on: 10/11/2024 01:27 PM Modules accepted: Orders documented in this encounterPrem[facility]02-[facility] Telephone encounter Note * Telephone Encounter - Kd Polanco - 10/11/2024 1:16 PM EST 10-26-2024 William Almanza to add surgical case request and contact Dr Vasquez to notifyhim of surgery Kd Polanco [facility]02-04-2025 Miscellaneous Notes* Telephone Encounter - Kd Polanco - 10/11/2024 1:16 PM EST 10-26-2024 William Almanza to add surgical case request and contact Dr Vasquez to notifyhim of surgery Kd Polanco documented in this encounterPrem[facility]02-04-2025 [facility] History of Present illness Narrative* Dexter Almanza MD - 10/11/2024 12:59 PM EST HISTORY AND PHYSICAL Mariam Minaya 1960 REFERRING PHYSICIAN: [place] Samuel APRN.PENNY CHIEF COMPLAINT: Consult (Calculus of gallbladder) HPI: Mariam is a 64 year old female with a complaint of right upper quadrant pain. Patient is here for emergency room follow-up. Patient went to [facility] on September 23 for nausea, vomiting, abdominal discomfort. She had labs completed, x-ray, CT of the abdomen pelvis. CT abdomen pelvis showing gallstones. Also found an incidental 1.5 cm splenic lesion. Recommending MRI of thespleen in 6 months for follow-up. We will order today. She was ordered an ultrasound of the gallbladder for outpatient but was unaware. We will get this ordered today. She continues to have nausea. She states that it can occur after eating. It can also occur after taking medication. Of note, she had knee replacement about 1 month ago. Nausea vomiting has been going on for 3 to 4 weeks. She has been taking oxycodone 1 tablet every 6 hours. She does have complaint of indigestion, belching, reflux. She was on Protonix 40 mg once daily postop but this has finished. The patient is being seen by me today at the request of Dr. Samuel for my opinion and advice regarding Calculus of gallbladder without cholecystitis without obstruction Upper abdominal pain. SIGNIFICANT MEDICAL PROBLEMS: PAST MEDICAL HISTORY Diagnosis Date Astigmatism, regular 12/22/2015 Chronic bilateral low back pain with sciatica 12/10/2015 Chronic kidney insufficiency, stage 3 (moderate) ([facility]) 04/06/2018 Encounter for gynecological examination 05/03/2019 [facility] 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 RA (rheumatoid arthritis) (HCC) + RF, +CCP OVERLAP PsA (+NAIL disease, dactylitis, axial inflammatory sx) Sjogren's syndrome (HCC) Neg SSA SSB in January 2009 Thyroid cancer (HCC) 09/07/[address] Maldonado removed, radioactive iodine ablation. papillary Vitamin D deficiency OPERATIONS: PAST SURGICAL HISTORY Procedure Laterality Date BREAST AUGMENTATION W/PROSTHETIC IMPLANT 2000 bilateral implants BX BREAST PERC NEED W/GUID 10/29/11 U/S needle core left axillary LN COLONOSCOPY FLX DX W/COLLJ SPEC WHEN PFRMD 09/07/2010 Colonoscopy, repeat 10 yrs EGD TRANSORAL BIOPSY SINGLE/MULTIPLE 11/06/06 Hiatal hernia, gastritis, retained food ESOPHAGOGASTRODUODENOSCOPY TRANSORAL DIAGNOSTIC EGD ESOPHAGOGASTRODUODENOSCOPY TRANSORAL DIAGNOSTIC 03/15/2015 EGD FNA (FINE NEEDLE ASPIRATION) 10/15/06 U/S FNA right thyroid nodule FNA WITH IMAGING 09/22/11 U/S FNA left axillary mass KNEE ARTHROSCOPY Left 2009 LIG/TRNSXJ FLP TUBE ABDL/VAG APPR UNI/BI Tubal ligation NEUROPLASTY &/TRANSPOS MEDIAN NRV CARPAL TUNNE Left 05/30/16 Carpal tunnel decomp NEUROPLASTY &/TRANSPOS MEDIAN NRV CARPAL TUNNE Right 09/26/2016 Carpal tunnel decomp PAST SURGICAL HISTORY OF 2010 removal of implants & replace & pannilectomy SYNOVECTOMY EACH 1999 left wrist THYROIDECTOMY TOTAL/COMPLETE 11/10/06 TONSILLECTOMY & ADENOIDECTOMY <AGE 12 Tonsillectomy VAGINAL HYSTERECTOMY UTERUS 250 GM/< 2004 Hysterectomy, vaginal CURRENT MEDICATIONS: Current Outpatient Medications Medication Sig Dispense Refill predniSONE (DELTASONE) 2.5 mg tablet Take 1 tablet by mouth two times a day for 10 days. [address] (PROTONIX) 20 mg tablet Take 1 tablet by mouth once daily. 30 tablet 2 amoxicillin (AMOXIL) 500 mg capsule Take 2 capsules three times a day, starting one day prior dental appointments/procedures and on the day of the dental procedure (two days for 6 doses total) 12 capsule 3 ascorbic acid, vitamin C, (VITAMIN C) 500 mg tablet Take 1 tablet by mouth two times a day with meals for 28 doses. 28 tablet 0 acetaminophen (TYLENOL) 500 mg tablet Take 2 tablets by mouth every 8 hours as needed for pain. 90 tablet 0 gabapentin (NEURONTIN) 300 mg capsule Take 1 capsule by mouth three times a day for 90 days. Take with 600 mg of Gabapentin 90 capsule 2 phentermine-topiramate ER (QSYMIA) 15-92 mg 24 Hr Capsule Take 1 capsule by mouth once daily 30 capsule 2 gabapentin (NEURONTIN) 600 mg tablet Take 1 tablet by mouth three times a day for 180 days. 90 tablet 5 levothyroxine (SYNTHROID) 112 mcg tablet Take 1 tablet by mouth once daily. Take on empty stomach. For thyroid 90 tablet 3 hydrOXYchloroQUINE (PLAQUENIL) 200 mg tablet Take 1 and a half tablets by mouth once daily. 135 tablet 0 Cholecalciferol, Vitamin D3, 50 mcg (2,000 unit) cap Take 1 capsule by mouth twice daily. vitamin b complex tab Take 1 tablet by mouth once daily. No current facility-administered medications for this visit. ALLERGIES: Humira [Adalimumab], Tessalon [Benzonatate], Albuterol, Amicar [Aminocaproic Acid], Flovent [Fluticasone], and Methotrexate PERSONAL HISTORY: Social History Tobacco Use Smoking status: Never Passive exposure: Never Smokeless tobacco: Never Vaping Use Vaping status: Never Used Substance Use Topics Alcohol use: No Comment: rare ; deo. wine Drug use: No FAMILY HISTORY: FAMILY HISTORY Problem Relation Age of Onset None Mother Cancer Father Breast Cancer Sister Thyroid Sister cancer s/p thyroidectomy Diabetes Brother from type I dx/d age 9 Diabetes Grandchild Type I age 8 REVIEW OF SYMPTOMS: The review of systems data was entered by the nurse and reviewed by me There are no exam notes on file for this visit. PHYSICAL EXAMINATION: General: The patient is 64 year old female, well nourished, well hydrated in no acute distress. Thepatient is oriented to time, place, and person. VITALS: There were no vitals taken for this visit. There is no height or weight on file to calculate BMI. HEENT: Normal cephalic, ataumatic, pupils are equally round, sclera are anicteric, mucous membranesare moist, oropharynx is clear. Neck has no masses, asymmetry or lymphadenopathy. Thyroid is unremarkable. Respiratory: Clear to auscultation and percussion. Normal respiratory excursion and pattern. Cardiac: Examination is regular rate and rhythm. Abdominal exam: Normoactive bowel sounds, Soft, tender in the right upper quadrant negative Galloway's sign, with no palpable masses. No hepatosplenomegaly. No palpable hernias. Rectal exam: exam deferred Extremities: no clubbing, cyanosis or edema. No adenopathy. Other: LABORATORY VALUES: As Noted RADIOLOGIC STUDIES: As Noted Above Assessment IMPRESSION: Calculus of gallbladder without cholecystitis without obstruction Upper abdominal pain PLAN: My plan is to perform a laparoscopic cholecystectomy with intraoperative choleangiogram. The planned surgical procedure was discussed extensively with the patient. The risks, benefits, anticipated outcomes and possible complications were mentioned. My staff has also explained the procedure in understandable terms and the patient was given the option to take printed material concerning the planned procedure. The patient had the opportunity to ask questions concerning the planned procedure.The patient freely consents to the planned procedure. Planned Procedure: LAPAROSCOPIC CHOLECYSTECTOMY WITHOUT INTRAOPERATIVE CHOLEANGIOGRAM - [id number] Planned antibiotic: Ancef 2gm IVPB medical sales consultant to OR SCDs needed - Yes Medical Scientist Needed - Yes Diagnoses: (K80.20) Calculus of gallbladder without cholecystitis without obstruction (R10.10) Upper abdominal pain My findings have been communicated to Dr. Samuel via shared medical record. This note will be forwarded to Dr. Laura Robertson MD. Dexter Almanza III, MD documented in this encounterPremier [facility]01-30-2025 History of Present illness Narrative* Erin Buenrostro, [facility] - 10/06/2024 1:00 PM EST Radiology Service Progress Note PATIENT NAME: Mariam Minaya DATE OF SERVICE: October 06, 2024 TIME: 1:36 PM PATIENT IDENTITY VERIFICATION COMPLETED USING TWO (2) IDENTIFIERS: Name and Date of confirmedby patient verbally. FALL SCREENING: Has the patient had 2 falls in the last year or 1 fall with injury or currently using an Ambulatory Assistive Device (Walker, Cane, Wheelchair, Crutches, etc.)? No PATIENT GENDER DATA: Assigned female at . status: : No status:NO. PATIENT RELEVANT IMPLANT DATA REVIEWED: Not Applicable PATIENT PRESENTS WITH AN IMPLANTABLE OR ATTACHED ADMINISTRATIVE SUPPORT ASSISTANT: No RADIOLOGY DEPARTMENT: Ultrasound PERIPHERAL IV DATA: Not applicable SIGNED BY: Erin Buenrostro RDMS October 06, 2024 1:36 PM documented in this encounterPremier Health [facility]01-30-2025 [facility] NoteC[facility]01-29-[facility] History of Present illness Narrative* Nathaniel Vasquez MD - 10/05/2024 2:40 PM EST Post-op Office Visit Mariam Minaya 64 year old October 05, 2024 2:40 PM History: Mariam Minaya Is now 6 weeks s/p R TKA. Post-operative course has been without complication. no readmission/complications Subjective: Patient reports minimal pain. Overall is doing well. no ambulatory aid no opioid pain medication Patient states that overall she is recovering well from her right knee, she is having left knee pain most on the medial aspect of her knee she has x-ray showing varus deformity with complete narrowing of her medial compartment of her knee. She is interested in possibly pursuing a left total knee replacement. Objective: Ambulates with no device Incision well-approximated, no drainage, normal richard-incisional erythema ROM 0 - 100 Distally DP/PT palpable Distally S/S/SP/DP/T intact at baseline Distally DF/EHL/PF intact at baseline Negative dee dee/calf tenderness Left knee exam shows range of motion 0 to 110 degrees, pain in the medial aspect of the knee and joint line, swelling, stable to varus valgus stress in extension, minimal AP translation and flexion. Motor 5 5 DF PF EHL sensation intact to the peripheral nerve distribution. Xrays: Past left knee x-rays show complete joint space narrowing of the medial compartment with tricompartmental changes. Assessment and Plan: Mariam Minaya Is here for a second post-op appointment, overall doing well -continued ice, rest, and use of non-narcotic analgesia as needed -discussed home exercises -WBAT on operative extremity -continue ankle pumps and dvt ppx through 4 weeks Patient would like to pursue total knee replacement for the left side, again she has complete jointspace narrowing of her left knee on the medial compartment the knee as well as tricompartmental changes. Exam shows tenderness over this area as well. She has failed conservative management previously as she has tried with the right knee and wished to proceed with surgery. Patient has failed conservative treatment with regards to their L knee. Patient continues to have disability, decreased function, and decreased quality of life. Discussed with the patient surgical treatment in the form of a L total knee arthroplasty. Discussed the benefits and risks which include but are not limited to infection, wound issues, peroneal nerve palsy, vascular injury, fracture, DVT/PE, loosening. Patient understands the risks and the benefits associated with the surgery and wishesto proceed with surgery in the form a L total knee arthroplasty. Will refer for preop anesthesia evaluation and schedule surgery at [facility]. Surgery: L Mumtaz TKA DVT ppx: ASA Abx: Ancef TXA: IV Nathaniel Vasquez MD documented in this encounterPremier Health [facility]01-24-2025 Instructions* Patient Instructions* Salinas Samuel APRN.CNP - 09/30/2024 1:50 PM EST Start Protonix Try slowing down or stopping the narcotics, switch to tylenol Get ultrasound of gallbladder Schedule MRI of spleen in 6 months to follow up on lesion Salinas Samuel APRN.CNP documented in this encounterPremier Health [facility]01-24-2025 History of Present illness Narrative* Salinas Samuel APRN.CNP - 09/30/2024 1:40 PM EST Chief Complaint Patient presents with: Hospital F/U: ER 09/23/2024 Gallstones HPI Mariam Minaya is a 64 year old female who presents here today for ER Follow Up. Patient is here for emergency room follow-up. Patient went to [facility] on for nausea, vomiting, abdominal discomfort. She had labs completed, x-ray, CT of the abdomen pelvis. CT abdomen pelvis showing gallstones. Also found an incidental 1.5 cm splenic lesion. Recommending MRI of the spleen in 6 months for follow-up. We will order today. She was ordered an ultrasound of the gallbladder for outpatient but was unaware. We will get this ordered today. She continues to have nausea. She states that it can occur after eating. It can also occur after taking medication. Of note, she had knee replacement about 1 month ago. Nausea vomiting has been going on for 3 to 4 week s. She has been taking oxycodone 1 tablet every 6 hours. She does have complaint of indigestion, belching, reflux. She was on Protonix 40 mg once daily postop but this has finished. Past medical history, appointments, medications, allergies reviewed. EXAM: BP 110/70 Pulse 96 Resp 16 Ht 170.2 cm (5' 7) Wt 65.8 kg (145 lb) SpO2 99% BMI 22.71 kg/m General Appearance: Well appearing, alert, in no acute distress, well-hydrated, well nourished.. Lungs: Lungs clear to auscultation. No wheezing, rhonchi, rales.. Heart: RRR without murmur, gallop, or rubs. No ectopy. Abdomen: Abdomen is soft, she has moderate discomfort with deep palpation of the right upper quadrant. She has mild epigastric tenderness on palpation. Bowel sounds are normal.. ASSESSMENT/PLAN: 1. Calculus of gallbladder without cholecystitis without obstruction - ICD9: 574.20, ICD10: K80.20 (primary diagnosis) -Found on CT of the abdomen pelvis. [facility] I placed an order so that we can keep it in our system. I discussed that usually if gallstones are present but not in the common bile duct, patients are generally symptom-free. - CONSULT TO GENERAL SURGERY - US ABD RIGHT UPPER QUADRANT 2. Upper abdominal pain - ICD9: 789.09, ICD10: R10.10 - Reflux vs gallstones. Discussed getting ultrasound and getting recommendation from general surgery. - CONSULT TO GENERAL SURGERY - US ABD RIGHT UPPER QUADRANT 3. Nausea - ICD9: 787.02, ICD10: R11.0 -Multiple etiologies possible. Could include reflux, gallstone, side effect of narcotic use. Start Protonix, get imaging of the right upper quadrant. I advised that if she was able to discontinue narcotic use for her knee replacement, switch to Tylenol. She felt that she could switch to Tylenol at night only and doing okay. - PANTOPRAZOLE 20 MG TABLET,DELAYED RELEASE 4. Splenic lesion - ICD9: 289.50, ICD10: D73.89 -Patient had a 1.5 cm splenic lesion incidentally found on CT of the abdomen pelvis at [facility] on 09/23. Recommendation was 6-month MRI of the spleen to follow-up. We will order at follow-up. - MRI SPLEEN WO IVCON 5. 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 documented in this encounterPremier Health [facility]01-24-2025 NoteC[facility]01-20-2025 Telephone encounter Note* Telephone Encounter - Keysha Villagran RN - 09/26/2024 10:57 AM EST Called patient about ED. She went to the dentist earlier in the week and her tooth is split. She was unable to eat very much because of this and was put on antibiotics. She said it made her stomach upset and she was having trouble keeping food and fluids down. She also said she had chills and sweats so she went to the ED. She said the ED doctor said she has a bug and gave her zofran. She is able to eat some now. Stillhaving dizziness. She was advised to slowing increase fluids and transfer positions slowly. She has only taking oxycodone daily. Advised to take only as needed, possibly a half of a pill at atime to ease her stomach. The ED doctor said the knee incision looked good, XR was done because area was warm. He also found gallstones. She will follow up with PCP. [facility]01-20-2025 Miscellaneous Notes* Telephone Encounter - Keysha Villagran RN - 09/26/2024 10:57 AM EST Called patient about ED. She went to the dentist earlier in the week and her tooth is split. She was unable to eat very much because of this and was put on antibiotics. She said it made her stomach upset and she was having trouble keeping food and fluids down. She also said she had chills and sweats so she went to the ED. She said the ED doctor said she has a bug and gave her zofran. She is able to eat some now. Stillhaving dizziness. She was advised to slowing increase fluids and transfer positions slowly. She has only taking oxycodone daily. Advised to take only as needed, possibly a half of a pill at atime to ease her stomach. The ED doctor said the knee incision looked good, XR was done because area was warm. He also found gallstones. She will follow up with PCP. documented in this encounterPremier Health [facility]01-17-2025 Telephone encounter Note * Telephone Encounter - Keysha Villagran RN - 09/23/2024 1:51 PM EST Pt called. She thinks she has suture surfacing. Denies pain, redness or drainage/opening. States itis soft but definitely coming out of the skin above her skin. She will send a photo to [employer] to view. [facility]01-17-2025 Miscellaneous Notes* Telephone Encounter - Keysha Villagran RN - 09/23/2024 1:51 PM EST Pt called. She thinks she has suture surfacing. Denies pain, redness or drainage/opening. States itis soft but definitely coming out of the skin above her skin. She will send a photo to [employer] to view. documented in this encounterPremier Health [facility]01-15-2025 Telephone encounter Note * Telephone Encounter - Keysha Villagran RN - 09/21/2024 10:06 AM EST Spoke with patient. Informed her there will be a script to start today when she picks it up and to complete the course through tomorrow. Explained the foot tingling can be from swelling in the knee. She just got her ice pad replaced yesterday so she will start using it. Patient verbalized understanding. She will call with updates or concerns. [facility]01-15-2025 Miscellaneous Notes* Telephone Encounter - Keysha Villagran RN - 09/21/2024 10:06 AM EST Spoke with patient. Informed her there will be a script to start today when she picks it up and to complete the course through tomorrow. Explained the foot tingling can be from swelling in the knee. She just got her ice pad replaced yesterday so she will start using it. Patient verbalized understanding. She will call with updates or concerns. * Telephone Encounter - Keysha Villagran RN - 09/21/2024 9:53 AM EST Patient called about ear/dental pain for past 1.5 weeks. She is seeing the dentist . Pleaseadvise on antibiotic course. Patient is 4 weeks post op R TKA on 08/23/25. Also concerned about tingling in her right foot. Will discuss with her when returning her call. documented in this encounterPremier Health [facility]01-15-2025 Telephone encounter Note * Telephone Encounter - Keysha Villagran RN - 09/21/2024 9:53 AM EST Patient called about ear/dental pain for past 1.5 weeks. She is seeing the dentist . Pleaseadvise on antibiotic course. Patient is 4 weeks post op R TKA on 08/23/25. Also concerned about tingling in her right foot. Will discuss with her when returning her call. [facility]01-10-2025 Telephone encounter Note* Telephone Encounter - Pato Rojas PA-C - 09/16/2024 1:50 PM EST Discussed with the patient the benefits and risks regarding opioid pain medication. This patient underwent major orthopedic surgery which will require the dose of daily narcotic pain medication to exceed the 30 MED/day regulation and non-opioid pain medication alone will not be enough to control pain in the immediate post operative period. Refill has been sent to pharmacy on file. Pato Rojas PA-C [facility]01-10-2025 Miscellaneous Notes* Telephone Encounter - Pato Rojas PA-C - 09/16/2024 1:50 PM EST Discussed with the patient the benefits and risks regarding opioid pain medication. This patient underwent major orthopedic surgery which will require the dose of daily narcotic pain medication to exceed the 30 MED/day regulation and non-opioid pain medication alone will not be enough to control pain in the immediate post operative period. Refill has been sent to pharmacy on file. Pato Rojas PA-C * Telephone Encounter - Keysha Villagran RN - 09/16/2024 1:05 PM EST called about refill request for for pain medication. Patient continues to take it [id number]. Called patient to discuss stretching out using the medication. Explained new script would be written for q6hrs. She can utilize [id number] NSAIDs very sparingly d/t kidney insufficientcy with tylenol at this time as well as ice, rest, and elevation for pain control. Patient verbalized understanding. also mentioned that the ice pad for the machine issued in the hospital is leaking. Suggested calling the rep number on the information that came with device. documented in this encounterPremier Health [facility]01-10-2025 Telephone encounter Note * Telephone Encounter - Keysha Villagran RN - 09/16/2024 1:05 PM EST called about refill request for for pain medication. Patient continues to take it [id number]. Called patient to discuss stretching out using the medication. Explained new script would be written for q6hrs. She can utilize [id number] NSAIDs very sparingly d/t kidney insufficientcy with tylenol at this time as well as ice, rest, and elevation for pain control. Patient verbalized understanding. also mentioned that the ice pad for the machine issued in the hospital is leaking. Suggested calling the rep number on the information that came with device. [facility]01-03-2025 Miscellaneous Notes* HH PT DISCHARGE - Margaux Bauer, PT - 09/09/2024 9:06 AM EST SITUATION: spouse present during today's visit. patient reports the following since the last homecare visit: medications/allergies--no changes, no fall. patient reports that she had her MD appt yesterday and did very well . BACKGROUND: Diagnoses (reason for Home Care): aftercare R TKR Advance Directives: Patient does not have advance directives. Patient/Caregiver declined Advance Directive information. Past Medical History: includes: Chronic Bilateral Low Back Pain With Sciatica Sjogren's Syndrome (Hcc) Ra (Rheumatoid Arthritis) (Hcc) Chronic Kidney Insufficiency, Stage 3 (Moderate) (Hcc) Seropositive Rheumatoid Arthritis of Multiple Joints (Hcc) Bilateral Primary Osteoarthritis of Knee Chronic Pain of Left Knee Primary Osteoarthritis of Both Knees Weight Bearing or Surgical Precautions: WBAT ASSESSMENT: Focus of visit: supine TKR ther exx 15 reps , standing ex;s , AROM : 87 PROM 90 Focusing on gait and development of recip pattern so she can start to heel toe. Curent environment ( small room and short hallway off of the room ) Physical therapy discharged: goals achieved. Functional performance at discharge - bed mobility independent, transfers independent, ambulation independent and stairs independent. Plan of care, goals, and discharge reviewed and agreed upon with patient and/or caregiver. RECOMMENDATION: Patient discharged from home health services. Instructions to include:begin outpatient therapy on 09/14/24 See intervention summary for intervention/education details. documented in this encounterPremier Health [facility]01-03-2025 Patient's home Note* HH PT DISCHARGE - Margaux Johns PT - 09/09/2024 9:06 AM EST SITUATION: spouse present during today's visit. patient reports the following since the last homecare visit: medications/allergies--no changes, no fall. patient reports that she had her MD appt yesterday and did very well . BACKGROUND: Diagnoses (reason for Home Care): aftercare R TKR Advance Directives: Patient does not have advance directives. Patient/Caregiver declined Advance Directive information. Past Medical History: includes: Chronic Bilateral Low Back Pain With Sciatica Sjogren's Syndrome (Hcc) Ra (Rheumatoid Arthritis) (Hcc) Chronic Kidney Insufficiency, Stage 3 (Moderate) (Hcc) Seropositive Rheumatoid Arthritis of Multiple Joints (Hcc) Bilateral Primary Osteoarthritis of Knee Chronic Pain of Left Knee Primary Osteoarthritis of Both Knees Weight Bearing or Surgical Precautions: WBAT ASSESSMENT: Focus of visit: supine TKR ther exx 15 reps , standing ex;s , AROM : 87 PROM 90 Focusing on gait and development of recip pattern so she can start to heel toe. Curent environment ( small room and short hallway off of the room ) Physical therapy discharged: goals achieved. Functional performance at discharge - bed mobility independent, transfers independent, ambulation independent and stairs independent. Plan of care, goals, and discharge reviewed and agreed upon with patient and/or caregiver. RECOMMENDATION: Patient discharged from home health services. Instructions to include:begin outpatient therapy on 09/14/24 See intervention summary for intervention/education details. [facility] Work Phone: [phone]) 697-417901-02-2025 NoteC[facility]01-02-2025 History of Present illness Narrative* Keysha Villagran RN - 09/08/2024 1:58 PM EST Post-op Office Visit Mariam Minaya 64 year old September 08, 2024 1:59 PM Surgery Date: 08/23/24 History: Mariam Minaya is now 2.5 weeks out from Right TKA. Post-operative course has been without complication. No readmission/complications Subjective: Patient reports 4/10 pain. Overall is doing well. Had a difficult time controlling pain initially upon getting home but has improved this past week. Oxycodone opioid pain medication; refill is complications; sent paper script with patient to fill at [facility]; called [facility] unable to fill for two days d/t script being written 7 days dependant,not quantity dependant. Objective: Ambulates with walker Incision well-approximated, no drainage, normal richard-incisional erythema ROM 0 - 85 Distally DP/PT palpable Distally S/S/SP/DP/T intact at baseline Distally DF/EHL/PF intact at baseline Negative dee dee/calf tenderness Xrays: Well-positioned total knee replacement in appropriate alignment with no evidence of loosening. Assessment and Plan: Mariam Minaya is here for a first post-op appointment, overall doing well. -continued ice, rest, and use of non-narcotic analgesia as needed -wean off ambulatory aids -discussed home exercises and therapy -WBAT on operative extremity -continue ankle pumps and dvt ppx through 4 weeks -discussed driving requirement: 4 weeks post-op, off narcotic pain medication, adequate brake time -will see back at 6 week appointment for clinical exam -discussed red flag symptoms of acutely increasing pain, new erythema, new swelling, drainage, shortness of breath Keysha Villagran RN (under Nathaniel Vasquez MD) Orthopaedic Surgery documented in this encounterPrem[facility]01-[facility] History of Present illness Narrative* Demetria Miranda Tech - 09/08/2024 1:40 PM EST Radiology Service Progress Note PATIENT NAME: Mariam Minaya DATE OF SERVICE: September 08, 2024 TIME: 1:25 PM PATIENT IDENTITY VERIFICATION COMPLETED USING TWO (2) IDENTIFIERS: Name and Date of confirmedby patient verbally. FALL SCREENING: Has the patient had 2 falls in the last year or 1 fall with injury or currently using an Ambulatory Assistive Device (Walker, Cane, Wheelchair, Crutches, etc.)? No PATIENT GENDER DATA: Female. status: : No status: NO. PATIENT RELEVANT IMPLANT DATA REVIEWED: Not Applicable PATIENT PRESENTS WITH AN IMPLANTABLE OR ATTACHED ADMINISTRATIVE SUPPORT ASSISTANT: No RADIOLOGY DEPARTMENT: General X-ray: Exam(s) Completed: Lower Extremity X- Ray(s): Knee, AP / Lat / Merchant Right and Wt. Bearing PERIPHERAL IV DATA: Not applicable SIGNED BY: Aspen Lozano September 08, 2024 1:25 PM documented in this encounterPremier [facility]01-02-2025 NoteHNO ID: [id number] Author: DEMETRIA MIRANDA Tech Service: Radiology Author Type: Rand Sewer Type: Progress Notes Filed: 09/08/2024 13:26 Note Text: Radiology Service Progress Note PATIENT NAME: Mariam Minaya DATE OF SERVICE: September 08, 2024 TIME: 1:25 PM PATIENT IDENTITY VERIFICATION COMPLETED USING TWO (2) IDENTIFIERS: Name and Date of confirmed by patient verbally. FALL SCREENING: Has the patient had 2 falls in the last year or 1 fall with injury or currently using an Ambulatory Assistive Device (Walker, Cane, Wheelchair, Crutches, etc.)? No PATIENT GENDER DATA: Female. status: : No status: NO. PATIENT RELEVANT IMPLANT DATA REVIEWED: Not Applicable PATIENT PRESENTS WITH AN IMPLANTABLE OR ATTACHED ADMINISTRATIVE SUPPORT ASSISTANT: No RADIOLOGY DEPARTMENT: General X-ray: Exam(s) Completed: Lower Extremity X-Ray(s): Knee, AP / Lat / Merchant Right and Wt. Bearing PERIPHERAL IV DATA: Not applicable SIGNED BY: Aspen Lozano September 08, 2024 1:[address]31-2024 Miscellaneous Notes* PT ROUTINE/REASSESSMENT/RECERT/CASE Margaux Saavedra, PT - 09/06/2024 9:31 AM EST SITUATION: spouse present during today's visit. patient reports the following since the last homecare visit: medications/allergies--no changes, no fall. patient reports that she is feeling better slowly. my is gone so i am on my own, so that has been a challenge trying to take care of myself and the dogs BACKGROUND: Diagnoses (reason for Home Care): aftercare R TKR Advance Directives: Patient does not have advance directives. Patient/Caregiver declined Advance Directive information. Past Medical History: includes: Chronic Bilateral Low Back Pain With Sciatica Sjogren's Syndrome (Hcc) Ra (Rheumatoid Arthritis) (Formerly [facility]) Chronic Kidney Insufficiency, Stage 3 (Moderate) (Formerly [facility]) Seropositive Rheumatoid Arthritis of Multiple Joints (Formerly [facility]) Bilateral Primary Osteoarthritis of Knee Chronic Pain of Left Knee Primary Osteoarthritis of Both Knees Weight Bearing or Surgical Precautions: WBAT ASSESSMENT: Focus of visit: supine TKR ther exx 15 reps ,added standing ex;s , AROM : 75 PROM 77 Focusing on gait and development of recip pattern so she can start to heel toe. Curent environment ( small room and short hallway off of the room )Requested that pt move the dog gate next visit so so she can walk in the living room Plan of care, goals, and visit frequency reviewed and agreed upon with patient and/or caregiver. Current Discharge Plan: outpatient rehab Anticipate discharge by 09/10/23 RECOMMENDATION: Next visit to focus on reveiw of HEP , gait, transfers. D/c from home care , ROM , See intervention summary for intervention/education details. documented in this encounterPremier [facility]12-31-2024 Patient's home Note* PT ROUTINE/REASSESSMENT/RECERT/CASE Margaux Saavedra, PT - 09/06/2024 9:31 AM EST SITUATION: spouse present during today's visit. patient reports the following since the last homecare visit: medications/allergies--no changes, no fall. patient reports that she is feeling better slowly. my is gone so i am on my own, so that has been a challenge trying to take care of myself and the dogs BACKGROUND: Diagnoses (reason for Home Care): aftercare R TKR Advance Directives: Patient does not have advance directives. Patient/Caregiver declined Advance Directive information. Past Medical History: includes: Chronic Bilateral Low Back Pain With Sciatica Sjogren's Syndrome (Hcc) Ra (Rheumatoid Arthritis) (Hcc) Chronic Kidney Insufficiency, Stage 3 (Moderate) (Hcc) Seropositive Rheumatoid Arthritis of Multiple Joints (Hcc) Bilateral Primary Osteoarthritis of Knee Chronic Pain of Left Knee Primary Osteoarthritis of Both Knees Weight Bearing or Surgical Precautions: WBAT ASSESSMENT: Focus of visit: supine TKR ther exx 15 reps ,added standing ex;s , AROM : 75 PROM 77 Focusing on gait and development of recip pattern so she can start to heel toe. Curent environment ( small room and short hallway off of the room )Requested that pt move the dog gate next visit so so she can walk in the living room Plan of care, goals, and visit frequency reviewed and agreed upon with patient and/or caregiver. Current Discharge Plan: outpatient rehab Anticipate discharge by 09/10/23 RECOMMENDATION: Next visit to focus on reveiw of HEP , gait, transfers. D/c from home care , ROM , See intervention summary for intervention/education details. [facility] Work Phone: 1(200) 934-634612-27-2024 Telephone encounter Note* Telephone Encounter - Margaux Johns PT - 09/02/2024 5:43 PM EST Post op dressing removed Incision clean /dry and healing well Photo uploaded for you to review Thanks Margaux PT [facility] Work Phone: 1(609) 774-513412-27-2024 Miscellaneous Notes* Telephone Encounter - Margaux Johns PT - 09/02/2024 5:43 PM EST Post op dressing removed Incision clean /dry and healing well Photo uploaded for you to review Thanks Margaux PT documented in this encounterPremier Health [facility]12-27-2024 Miscellaneous Notes* PT ROUTINE/REASSESSMENT/RECERT/CASE MGMT - Margaux Johns, PT - 09/02/2024 8:51 AM EST SITUATION: spouse present during today's visit. patient reports the following since the last homecare visit: medications/allergies--no changes, no fall. patient reports that she cancelled her appt on08/30 due to no pain meds x 1 day. Her new script is just for 7 days. and she is concerned that shewill run out this weekend because it was written for q6 but they told her to take them q4 . Plans to call the MD after i leave BACKGROUND: Diagnoses (reason for Home Care): aftercare R TKR Advance Directives: Patient does not have advance directives. Patient/Caregiver declined Advance Directive information. Past Medical History: includes: Chronic Bilateral Low Back Pain With Sciatica Sjogren's Syndrome (Hcc) Ra (Rheumatoid Arthritis) (Hcc) Chronic Kidney Insufficiency, Stage 3 (Moderate) (Hcc) Seropositive Rheumatoid Arthritis of Multiple Joints (Hcc) Bilateral Primary Osteoarthritis of Knee Chronic Pain of Left Knee Primary Osteoarthritis of Both Knees Weight Bearing or Surgical Precautions: WBAT ASSESSMENT: Focus of visit: supine TKR ther exx 10 reps , no active assistance needed only cuing, AROM : 68 PROM 70 Focusing on gait and development of recip pattern so seh can start to heel toe. Curent environment ( small room and short hallway off of the bedroom are not condusive to this. Spouse will move dogs and dog shukla after i leave so she can walk in the living room Post op dressing removed. Incision clean/dry and healing well. With pts permission a photo was uploaded ffor MD to review Plan of care, goals, and visit frequency reviewed and agreed upon with patient and/or caregiver. Current Discharge Plan: outpatient rehab Anticipate discharge by 09/10/23 RECOMMENDATION: Next visit to focus on reveiw of HEP , gait, transfers , ROM , See intervention summary for intervention/education details. documented in this encounterPrem[facility]12-27-2024 Patient's home Note* PT ROUTINE/REASSESSMENT/RECERT/CASE MGMT - Margaux Johns, PT - 09/02/2024 8:51 AM EST SITUATION: spouse present during today's visit. patient reports the following since the last homecare visit: medications/allergies--no changes, no fall. patient reports that she cancelled her appt on08/30 due to no pain meds x 1 day. Her new script is just for 7 days. and she is concerned that shewill run out this weekend because it was written for q6 but they told her to take them q4 . Plans to call the MD after i leave BACKGROUND: Diagnoses (reason for Home Care): aftercare R TKR Advance Directives: Patient does not have advance directives. Patient/Caregiver declined Advance Directive information. Past Medical History: includes: Chronic Bilateral Low Back Pain With Sciatica Sjogren's Syndrome (Hcc) Ra (Rheumatoid Arthritis) (Hcc) Chronic Kidney Insufficiency, Stage 3 (Moderate) (Hcc) Seropositive Rheumatoid Arthritis of Multiple Joints (Hcc) Bilateral Primary Osteoarthritis of Knee Chronic Pain of Left Knee Primary Osteoarthritis of Both Knees Weight Bearing or Surgical Precautions: WBAT ASSESSMENT: Focus of visit: supine TKR ther exx 10 reps , no active assistance needed only cuing, AROM : 68 PROM 70 Focusing on gait and development of recip pattern so seh can start to heel toe. Curent environment ( small room and short hallway off of the bedroom are not condusive to this. Spouse will move dogs and dog shukla after i leave so she can walk in the living room Post op dressing removed. Incision clean/dry and healing well. With pts permission a photo was uploaded ffor to review Plan of care, goals, and visit frequency reviewed and agreed upon with patient and/or caregiver. Current Discharge Plan: outpatient rehab Anticipate discharge by 09/10/23 RECOMMENDATION: Next visit to focus on reveiw of HEP , gait, transfers , ROM , See intervention summary for intervention/education details. [facility] Work Phone: [phone]) 261-943912-26-2024 Telephone encounter Note* Telephone Encounter - Keysha Villagran RN - 09/01/2024 10:49 AM EST called about pain medication for . She will run out 4 am on Thursday. Suggested to ask for refill request when needed, maybe Thursday. She is taking the pain medication q4h sometimes spreading out to 5 and pain is more controlled. [facility] Work Phone: [phone]) 457-236912-26-2024 Miscellaneous Notes* Telephone Encounter - Keysha Villagran RN - 09/01/2024 10:49 AM EST called about pain medication for . She will run out 4 am on Thursday. Suggested to ask for refill request when needed, maybe Thursday. She is taking the pain medication q4h sometimes spreading out to 5 and pain is more controlled. documented in this encounterPrem[facility]12-24-2024 Telephone encounter Note * Telephone Encounter - Keysha Villagran RN - 08/30/2024 11:59 AM EST called about pt pain not being controlled. Spoke with patient. She is having spasms. When she was taking oxycodone q4h but had trouble getting her refill from thepharmacy. Was a full 24hr without pain medication. Suggested ice, rest, elevation and supplement with tylenol. Will request muscle relaxer. She is going to take the oxycodone q4h until her pain is controlled and the back to q6h. She may need a refillearly again, which will need to be authorize by the provider at that time. [facility]12-24-2024 Miscellaneous Notes* Telephone Encounter - Keysha Villagran RN - 08/30/2024 11:59 AM EST called about pt pain not being controlled. Spoke with patient. She is having spasms. When she was taking oxycodone q4h but had trouble getting her refill from thepharmacy. Was a full 24hr without pain medication. Suggested ice, rest, elevation and supplement with tylenol. Will request muscle relaxer. She is going to take the oxycodone q4h until her pain is controlled and the back to q6h. She may need a refillearly again, which will need to be authorize by the provider at that time. documented in this encounterPremier [facility]12-23-2024 Miscellaneous Notes* PT ROUTINE/REASSESSMENT/RECERT/CASE MGMT - Margaux Johns PT - 08/29/2024 2:32 PM EST SITUATION: spouse present during today's visit. patient reports the following since the last homecare visit: medications/allergies--no changes, no fall. patient reports that the nausea is better, not gone but better. BACKGROUND: Diagnoses (reason for Home Care): aftercare R TKR Advance Directives: Patient does not have advance directives. Patient/Caregiver declined Advance Directive information. Past Medical History: includes: Chronic Bilateral Low Back Pain With Sciatica Sjogren's Syndrome (Hcc) Ra (Rheumatoid Arthritis) (Hcc) Chronic Kidney Insufficiency, Stage 3 (Moderate) (Hcc) Seropositive Rheumatoid Arthritis of Multiple Joints (Hcc) Bilateral Primary Osteoarthritis of Knee Chronic Pain of Left Knee Primary Osteoarthritis of Both Knees Weight Bearing or Surgical Precautions: WBAT ASSESSMENT: Focus of visit: supine TKR ther exx 10 reps , no active assistance needed only cuing, AROM : 65 Plan of care, goals, and visit frequency reviewed and agreed upon with patient and/or caregiver. Current Discharge Plan: outpatient rehab Anticipate discharge by 09/10/23 RECOMMENDATION: Next visit to focus on reveiw of HEP , gait, transfers , ROM , See intervention summary for intervention/education details. documented in this encounterPrem[facility]12-23-2024 Patient's home Note* PT ROUTINE/REASSESSMENT/RECERT/CASE MGMT - Margaux Johns, PT - 08/29/2024 2:32 PM EST SITUATION: spouse present during today's visit. patient reports the following since the last homecare visit: medications/allergies--no changes, no fall. patient reports that the nausea is better, not gone but better. BACKGROUND: Diagnoses (reason for Home Care): aftercare R TKR Advance Directives: Patient does not have advance directives. Patient/Caregiver declined Advance Directive information. Past Medical History: includes: Chronic Bilateral Low Back Pain With Sciatica Sjogren's Syndrome (Hcc) Ra (Rheumatoid Arthritis) (Formerly [facility]) Chronic Kidney Insufficiency, Stage 3 (Moderate) (Formerly [facility]) Seropositive Rheumatoid Arthritis of Multiple Joints (Hcc) Bilateral Primary Osteoarthritis of Knee Chronic Pain of Left Knee Primary Osteoarthritis of Both Knees Weight Bearing or Surgical Precautions: WBAT ASSESSMENT: Focus of visit: supine TKR ther exx 10 reps , no active assistance needed only cuing, AROM : 65 Plan of care, goals, and visit frequency reviewed and agreed upon with patient and/or caregiver. Current Discharge Plan: outpatient rehab Anticipate discharge by 09/10/23 RECOMMENDATION: Next visit to focus on reveiw of HEP , gait, transfers , ROM , See intervention summary for intervention/education details. [facility] Work Phone: [phone]) 116-811412-23-2024 Telephone encounter Note* Telephone Encounter - Ema Ortiz - 08/29/2024 10:07 AM EST Patient's spouse called in requesting a refill of patient's pain medication due to a recent dose increase. Patient is out of medication. Patient's spouse would like call when the medication is sent to the pharmacy at :[place] [phone]. Patient's spouse requested that the medication be sent to the following pharmacy: [address] [phone] [[id number]] [facility]12-23-2024 Miscellaneous Notes* Telephone Encounter - Ema Ortiz - 08/29/2024 10:07 AM EST Patient's spouse called in requesting a refill of patient's pain medication due to a recent dose increase. Patient is out of medication. Patient's spouse would like call when the medication is sent to the pharmacy at :[place] [phone]. Patient's spouse requested that the medication be sent to the following pharmacy: [address], [place] - [phone] [[id number]] documented in this encounterPremier Health [facility]12-21-2024 Miscellaneous Notes* PT ROUTINE/REASSESSMENT/RECERT/CASE MGMT - Laura Cash PTA - 08/27/2024 2:30 PM EST SITUATION: spouse present during today's visit. patient reports the following since the last homecare visit: medications/allergies--no changes, no fall. patient reports compliance to HEP, feeling ok. BACKGROUND: Diagnoses (reason for Home Care): aftercare R TKR Advance Directives: Patient does not have advance directives. Patient/Caregiver declined Advance Directive information. Past Medical History: includes: Chronic Bilateral Low Back Pain With Sciatica Sjogren's Syndrome (Hcc) Ra (Rheumatoid Arthritis) (Formerly [facility]) Chronic Kidney Insufficiency, Stage 3 (Moderate) (Formerly [facility]) Seropositive Rheumatoid Arthritis of Multiple Joints (Hcc) Bilateral Primary Osteoarthritis of Knee Chronic Pain of Left Knee Primary Osteoarthritis of Both Knees Weight Bearing or Surgical Precautions: WBAT ASSESSMENT: 4 days post op. ROM 3-75 degrees Focus of visit: Supine LE ex. Instructed patient and caregiver in pillow placement for (R) LE elevation. RW amb and seated knee flx ROM. Plan of care, goals, and visit frequency reviewed and agreed upon with patient and/or caregiver. Current Discharge Plan: outpatient rehab Anticipate discharge by 09/10/24 RECOMMENDATION: Next visit to focus on (R) LE strengthening, (R) knee ROM, gait training See intervention summary for intervention/education details. documented in this encounterPrem[facility]12-21-2024 Patient's home Note* PT ROUTINE/REASSESSMENT/RECERT/CASE MGMT - Laura Cash PTA - 08/27/2024 2:30 PM EST SITUATION: spouse present during today's visit. patient reports the following since the last homecare visit: medications/allergies--no changes, no fall. patient reports compliance to HEP, feeling ok. BACKGROUND: Diagnoses (reason for Home Care): aftercare R TKR Advance Directives: Patient does not have advance directives. Patient/Caregiver declined Advance Directive information. Past Medical History: includes: Chronic Bilateral Low Back Pain With Sciatica Sjogren's Syndrome (Hcc) Ra (Rheumatoid Arthritis) (Formerly [facility]) Chronic Kidney Insufficiency, Stage 3 (Moderate) (Formerly [facility]) Seropositive Rheumatoid Arthritis of Multiple Joints (Formerly [facility]) Bilateral Primary Osteoarthritis of Knee Chronic Pain of Left Knee Primary Osteoarthritis of Both Knees Weight Bearing or Surgical Precautions: WBAT ASSESSMENT: 4 days post op. ROM 3-75 degrees Focus of visit: Supine LE ex. Instructed patient and caregiver in pillow placement for (R) LE elevation. RW amb and seated knee flx ROM. Plan of care, goals, and visit frequency reviewed and agreed upon with patient and/or caregiver. Current Discharge Plan: outpatient rehab Anticipate discharge by 09/10/24 RECOMMENDATION: Next visit to focus on (R) LE strengthening, (R) knee ROM, gait training See intervention summary for intervention/education details. [facility] Work Phone: 1(454) 250-271312-20-2024 Telephone encounter Note* Telephone Encounter - Marissa Jimenez - 08/26/2024 12:30 PM EST Prescription Refill Information The patient has been identified by name and date of : Yes Caregiver verified no other encounters exist for this prescription request: Yes Caregiver confirmed with patient/requestor that no other refills are due, in the near future, with this provider at this time: Yes The last office visit in the department: n/a Does the patient have a future office visit with this provider/department: Yes Requested Prescriptions Pending Prescriptions Disp Refills oxyCODONE IR (ROXICODONE) 5 mg immediate release tablet 50 tablet 0 Sig: Take 1-2 tablets by mouth every 6 hours as needed for pain for up to 7 days. Marissa Jimenez August 26, 2024 12:30 PM [facility]12-20-2024 Miscellaneous Notes* Telephone Encounter - Marissa Jimenez - 08/26/2024 12:30 PM EST Prescription Refill Information The patient has been identified by name and date of : Yes Caregiver verified no other encounters exist for this prescription request: Yes Caregiver confirmed with patient/requestor that no other refills are due, in the near future, with this provider at this time: Yes The last office visit in the department: n/a Does the patient have a future office visit with this provider/department: Yes Requested Prescriptions Pending Prescriptions Disp Refills oxyCODONE IR (ROXICODONE) 5 mg immediate release tablet 50 tablet 0 Sig: Take 1-2 tablets by mouth every 6 hours as needed for pain for up to 7 days. Marissa Jimenez August 26, 2024 12:30 PM documented in this encounterPremier Health [facility]12-20-2024 Miscellaneous Notes* CARE COORDINATION - Swathi Harper RN - 08/26/2024 9:16 AM EST Medication review completed. No ineffective drug therapy, significant side effects, significant drug interactions, duplicate drug therapy, or noncompliance with drug therapy noted. ondansetron (ZOFRAN) 4 mg tablet prescribed for patient due to complaints of nausea. Swathi Harper RN documented in this encounterPremier Health [facility]12-20-2024 Patient's home Note* CARE COORDINATION - Swathi Harper RN - 08/26/2024 9:16 AM EST Medication review completed. No ineffective drug therapy, significant side effects, significant drug interactions, duplicate drug therapy, or noncompliance with drug therapy noted. ondansetron (ZOFRAN) 4 mg tablet prescribed for patient due to complaints of nausea. Swathi Harper RN [facility] Work Phone: 1(353) 273-873012-19-2024 Telephone encounter Note* Telephone Encounter - Keysha Villagran RN - 08/25/2024 2:45 PM EST Called patient to inform her medication was sent to [facility]. She states her pain is not controlled withthe pain medication q6h. She is going to try to take is every four hours until the pain is more controlled and then spread out the timing of doses back to six. She is taking tylenol and icing with the ice machine constantly. She will likely need a refill early, she will call to request it at that time. [facility] Work Phone: [phone] 727-990812-19-2024 Miscellaneous Notes* Telephone Encounter - Keysha Villagran RN - 08/25/2024 2:45 PM EST Called patient to inform her medication was sent to [facility]. She states her pain is not controlled withthe pain medication q6h. She is going to try to take is every four hours until the pain is more controlled and then spread out the timing of doses back to six. She is taking tylenol and icing with the ice machine constantly. She will likely need a refill early, she will call to request it at that time. * Telephone Encounter - Víctor Aragon, PT - 08/25/2024 12:06 PM EST stacey pt seen for PT SOC today. Planning PT 2w1, 3w1, 2w1. Pt is feeling very nauseated- she's asking if she can get something for it. Could you please contact patient directly if any med changes. Thank you! Víctor PT [phone] documented in this encounterPrem[facility]12-[facility]24 Telephone encounter Note * Telephone Encounter - Víctor Aragon PT - 08/25/2024 12:06 PM EST stacey pt seen for PT SOC today. Planning PT 2w1, 3w1, 2w1. Pt is feeling very nauseated- she's asking if she can get something for it. Could you please contact patient directly if any med changes. Thank you! Víctor PT [phone] [facility] Work Phone: [phone] Miscellaneous Notes* HH PT SOC/MARCIAL/FOLLOW UP/OTHER - Víctor Aragon PT - 08/25/2024 10:28 AM EST SITUATION: Pt underwent R TKR on 08/23/24. Patient and spouse present during today's visit. patient reports feeling nauseated and knee is painful. Pt has 1st floor bed set up in what appears to be a laundry room. This room and bathoom are under construction. There are nails showing- pt alerted to this. Pt has no plans to go upstairs to bedroom until after 2nd knee is done, after this one heals. Patient has to walk over multiple raised stepping stones to get through yard to driveway. 3 stairs to enter back door. Prior to surgery, pt was IND with ADL, ambulating without device, limited by knee pain. BACKGROUND: Diagnoses (reason for Home Care): aftercare R TKR Advance Directives: Patient does not have advance directives. Patient/Caregiver declined Advance Directive information. Past Medical History: includes: Chronic Bilateral Low Back Pain With Sciatica Sjogren's Syndrome (Hcc) Ra (Rheumatoid Arthritis) (Hcc) Chronic Kidney Insufficiency, Stage 3 (Moderate) (Hcc) Seropositive Rheumatoid Arthritis of Multiple Joints (Hcc) Bilateral Primary Osteoarthritis of Knee Chronic Pain of Left Knee Primary Osteoarthritis of Both Knees Weight Bearing or Surgical Precautions: WBAT ASSESSMENT: Patient evaluated by [facility] Homecare physical therapy. Reviewed and explained homecare services. Plan of care, goals, and visit frequency developed, reviewed, and agreed upon with patient and/or caregiver. R knee ROM limited by pain and guarding: R knee AROM 5-40 deg Dressing has 1 spot of dried blood at distal end- this was circled by intpatient clinician and has not changed. Dressing removal 7-10 days = 08/30 - 09/02/24. MD notified of nausea. Pt received instruction on pain/edema mgmt, fall prevention/home safety, s/s of infection and when to call the MD, DVT prophylaxis, precautions and restrictions as applicable, and home exercises uponPT eval. Patient Goal: improve mobility, decrease pain Patient will benefit from continued physical therapy to address the following deficits: strength, gait, R knee joint ROM, transfers, stair negotiation and bed mobility. Current Discharge Plan: outpatient rehab. Anticipate discharge by 09/10/24- will need OP set up. RECOMMENDATION: Next visit to focus on bed mobility with attention to pain mgmt, increase gait training as tolerated, increase R knee AROM as tolerated. Agreeable to PT; declining n/a See intervention summary for intervention/education details. documented in this encounterPrem[facility]12-19-[facility]24 Patient's home Note* PT SOC/MARCIAL/FOLLOW UP/OTHER - Víctor Aragon PT - 08/25/2024 10:28 AM EST SITUATION: Pt underwent R TKR on 08/23/24. Patient and spouse present during today's visit. patient reports feeling nauseated and knee is painful. Pt has 1st floor bed set up in what appears to be a laundry room. This room and bathoom are under construction. There are nails showing- pt alerted to this. Pt has no plans to go upstairs to bedroom until after 2nd knee is done, after this one heals. Patient has to walk over multiple raised stepping stones to get through yard to driveway. 3 stairs to enter back door. Prior to surgery, pt was IND with ADL, ambulating without device, limited by knee pain. BACKGROUND: Diagnoses (reason for Home Care): aftercare R TKR Advance Directives: Patient does not have advance directives. Patient/Caregiver declined Advance Directive information. Past Medical History: includes: Chronic Bilateral Low Back Pain With Sciatica Sjogren's Syndrome (Hcc) Ra (Rheumatoid Arthritis) (Hcc) Chronic Kidney Insufficiency, Stage 3 (Moderate) (Hcc) Seropositive Rheumatoid Arthritis of Multiple Joints (Hcc) Bilateral Primary Osteoarthritis of Knee Chronic Pain of Left Knee Primary Osteoarthritis of Both Knees Weight Bearing or Surgical Precautions: WBAT ASSESSMENT: Patient evaluated by [facility] physical therapy. Reviewed and explained homecare services. Plan of care, goals, and visit frequency developed, reviewed, and agreed upon with patient and/or caregiver. R knee ROM limited by pain and guarding: R knee AROM 5-40 deg Dressing has 1 spot of dried blood at distal end- this was circled by intpatient clinician and has not changed. Dressing removal 7-10 days = 08/30 - 09/02/24. MD notified of nausea. Pt received instruction on pain/edema mgmt, fall prevention/home safety, s/s of infection and when to call the MD, DVT prophylaxis, precautions and restrictions as applicable, and home exercises uponPT eval. Patient Goal: improve mobility, decrease pain Patient will benefit from continued physical therapy to address the following deficits: strength, gait, R knee joint ROM, transfers, stair negotiation and bed mobility. Current Discharge Plan: outpatient rehab. Anticipate discharge by 09/10/24- will need OP set up. RECOMMENDATION: Next visit to focus on bed mobility with attention to pain mgmt, increase gait training as tolerated, increase R knee AROM as tolerated. Agreeable to PT; declining n/a See intervention summary for intervention/education details. [facility] Work Phone: 1(765) 784-806812-18-2024 NoteHNO ID: [id number] Author: DEXTER CAR PA-C Service: Orthopaedic Surgery Author Type: Physician Medical Scientist Type: Progress Notes Filed: 08/24/2024 10:02 Note Text: POSTOP NOTE ORTHOPAEDIC SURGERY SERVICE DATE: 08/24/2024 SERVICE TIME: 9:25 AM IMPRESSION/PLAN: S/P Procedure(s) (LRB): ROBOTIC ASSISTED TOTAL KNEE ARTHROPLASTY [place] (Right) on 08/23/2024 Physical Therapy recommending SNF WBAT RLE DVT prophylaxis: Intermittent pneumatic compression device (IPCD) and ASA 81 BID Pain control; d/w RN Antibiotics: Duricef 500mg bid for 1 week Case Management for discharge planning; the patient is refusing SNF at this time Plan of care discussed with: Provider, RN, Patient. Patient Active Hospital Problem List: Primary osteoarthritis of both knees Date Noted: 08/23/2024 POST OPERATIVE COMPLICATIONS: Complicated by uneventful/none SUBJECTIVE: NAEO. The patient reports she missed multiple doses of pain medicine yesterday and is now catching up to her pain. Denies incisional pain. The patient states she is refusing SNF. She is agreeable to [facility]. OBJECTIVE: VITAL SIGNS: BP 101/55 Pulse (!) 55 Temp 36.8 ?C (98.2 ?F) (Oral) Resp 16 Ht 170.2 cm (5' 7) Wt 70 kg (154 lb 5.2 oz) SpO2 99% BMI 24.17 kg/m? INTAKE AND OUTPUT: Intake/Output Summary (Last 24 hours) at 08/24/2024 0958 Last data filed at 08/23/2024 2110 Gross per 24 hour Intake -- Output 850 ml Net -850 ml LABS: Hemoglobin Date Value Ref Range Status 08/24/2024 10.5 (L) 11.5 - 15.5 g/dL Final 08/08/2024 13.0 11.5 - 15.5 g/dL Final Hematocrit Date Value Ref Range Status 08/24/2024 32.6 (L) 36.0 - 46.0 % Final 08/08/2024 38.9 36.0 - 46.0 % Final Platelet Count Date Value Ref Range Status 08/24/2024 219 150 - 400 k/uL Final 08/08/2024 268 150 - 400 k/uL Final WBC Date Value Ref Range Status 08/24/2024 10.75 3.70 - 11.00 k/uL Final 08/08/2024 6.61 3.70 - 11.00 k/uL Final Creatinine Date Value Ref Range Status 08/24/2024 0.84 0.58 - 0.96 mg/dL Final 08/08/2024 0.84 0.58 - 0.96 mg/dL Final Potassium Date Value Ref Range Status 08/24/2024 4.6 3.7 - 5.1 mmol/L Final 08/08/2024 4.1 3.7 - 5.1 mmol/L Final VTE Prophylaxis: Active VTE Risk Category Order: 08/23/24 111 VTE RISK CATEGORY: SURGICAL HIGH RISK ([place], [place]) Active VTE Medication Orders: Anticoagulant AND Antiplatelet Medications (From admission, onward) Start Dose Route Frequency Last Action Ordered Stop 08/24/24 0900 aspirin, enteric coated 81 mg tab(s) 81 mg ORAL 2 TIMES DAILY Given, 08/24 0908/23/24 1102 -- Active VTE Prophylaxis Orders: 08/23/24 111 VTE CURRENT ANTICOAG THERAPY ([place], [place]) 08/23/24 111 PNEUMATIC COMPRESSION STOCKINGS ([place], [place]) PHYSICAL EXAMINATION: Right Lower Extremity: Dorsalis pedis pulses palpable. Posterior tibial pulses palpable. Dorsi flexion 5/5. Plantar flexion 5/5. Extensor hallucis extension: 5/5. Sensory intact to light touch L4-S1. Dressing clean, dry, and intact. Surgical site no drainage and Silverlon intact. Problem Review and Assessment: Skin and Abdominal Wall: Patient monitored, no new events overnight Cardiovascular and Vascular: Patient monitored, no new events overnight Respiratory: Patient monitored, no new events overnight Endocrine and Metabolic: Patient monitored, no new events overnight Gastrointestinal: Patient monitored, no new events overnight Genitourinary and Nephrology: Patient monitored, no new events overnight Behavioral, Cerebrovascular and Nervous: Patient monitored, no new events overnight Infectious: Patient monitored, no new events overnight DATA: Diagnostic tests reviewed for today's visit: Most recent labs and imaging results. SIGNATURE: Dexter Car PA-C PATIENT NAME: Mariam Minaya DATE: August 24, 2024 TIME: 9:58 AM The patient has undergone major orthopedic surgery and participating in therapy. Pain cannot be managed within an average of 30 MED per day. Patient requiring average of higher than 30 MED per day in order to control pain and allow patient to actively and safely participate in therapy and this is the lowest dose consistent with patient's medical condition. Non-narcotic medication options have been discussed. In addition, the patient has been advised of the benefits and risks of the opioid (including the potential for addiction). Patient demonstrated understanding of risks versus benefits.[facility] [id number] NoteHNO ID: [id number] Author: MAYKEL GOVEA MD Service: General Internal Medicine Author Type: Physician Type: Progress Notes Filed: 08/24/2024 09:05 Note Text: INPATIENT PROGRESS NOTES Patient Name: Mariam Minaya DATE of SERVICE: 08/24/2024 TIME of SERVICE: 9:01 AM PRIMARY SERVICE: medicine INTERVAL HPI: No nausea vomiting. No lightheadedness or dizziness this morning no cough or shortness of breath, pain is fairly controlled ASSESSMENT AND PLAN: Osteoarthritis status post right total knee arthroplasty, DVT prophylaxis with aspirin 81 mg twice daily RA currently on gabapentin and Plaquenil Hypothyroidism continue Synthroid Constipation Possible discharge today Home-going meds reviewed Plan of care discussed with: Provider, RN, Patient. PERTINENT ROS: All other reviewed and negative other than HPI. MEDICATIONS: Current Facility-Administered Medications Medication Dose Route Frequency gabapentin 300 mg cap(s) (NEURONTIN) 300 mg ORAL TID levothyroxine 112 mcg tab(s) (SYNTHROID) 112 mcg ORAL DAILY oxyCODONE IR 5-10 mg tab(s) (ROXICODONE) 5-10 mg ORAL q 3 H PRN HYDROmorphone 0.4 mg injection (DILAUDID) 0.4 mg INTRAVENOUS q 4 H PRN acetaminophen 1,000 mg tab(s) (TYLENOL) 1,000 mg ORAL q 8 H ondansetron orally disintegrating 4 mg tab(s) (ZOFRAN ODT) 4 mg ORAL q 6 H PRN Or ondansetron (PF) 4 mg injection (ZOFRAN) 4 mg INTRAVENOUS q 6 H PRN magnesium hydroxide 400 mg/5 mL 30 mL (MOM) 30 mL ORAL DAILY PRN [START ON 08/25/2024] bisacodyl EC 10 mg tab(s) (DULCOLAX) 10 mg ORAL DAILY aluminum-magnesium hydroxide-simethicone 200-200-20 mg/5 mL 30 mL 30 mL ORAL q 2 H PRN ascorbic acid (vitamin C) 500 mg tab(s) (VITAMIN C) 500 mg ORAL BID w MEALS docusate sodium 100 mg cap(s) (COLACE) 100 mg ORAL BID senna 17.2 mg tab(s) (SENOKOT) 17.2 mg ORAL AT BEDTIME aspirin, enteric coated 81 mg tab(s) 81 mg ORAL BID pantoprazole [address] 40 mg tab(s) (PROTONIX) 40 mg ORAL DAILY (6 AM) cephALEXin 500 mg cap(s) (KEFLEX) 500 mg ORAL q 6 H PHYSICAL EXAM: Patient Vitals for the past 24 hrs: BP Temp Temp src Pulse Resp SpO2 Weight 08/24/24 0809 101/55 -- -- -- -- -- -- 08/24/24 0716 103/71 36.8 ?C (98.2 ?F) Oral (!) 55 16 99 % -- 08/24/24 0434 125/59 36.8 ?C (98.2 ?F) Oral (!) 56 18 100 % -- 08/23/24 2344 110/54 36.7 ?C (98.1 ?F) Oral (!) 57 18 98 % -- 08/23/24 2200 102/60 -- -- -- -- -- -- 08/23/24 1950 111/60 36.5 ?C (97.7 ?F) Oral 65 17 99 % -- 08/23/24 1558 112/67 36.3 ?C (97.3 ?F) Oral 79 16 99 % -- 08/23/24 1506 114/67 -- -- -- -- -- -- 08/23/24 1439 -- -- -- -- -- -- 70 kg (154 lb 5.2 oz) 08/23/24 1200 138/68 36.7 ?C (98 ?F) Oral 72 16 100 % -- 08/23/24 1146 117/53 -- -- 76 16 100 % -- 08/23/24 1111 104/68 36 ?C (96.8 ?F) -- 72 18 98 % -- 08/23/24 1108 104/65 -- -- 74 -- 99 % -- 08/23/24 1030 122/66 -- Temporal 76 -- 96 % -- 08/23/24 1022 -- -- -- 78 -- 98 % -- 08/23/24 1015 132/66 -- -- 81 -- 95 % -- 08/23/24 1013 -- -- -- 84 -- 95 % -- 08/23/24 1000 133/65 -- -- 81 -- 97 % -- 08/23/24 0945 143/72 -- -- 75 -- 100 % -- 08/23/24 0930 143/71 -- -- 78 -- 100 % -- 08/23/24 0922 136/67 36 ?C (96.8 ?F) Temporal 79 18 99 % -- Body mass index is 24.17 kg/m?. GENERAL: Alert, no distress, cooperative NECK: No jugulovenous distention LUNGS: Lungs clear to auscultation, CARDIAC: Normal S1 and S2; no rubs, murmurs, or gallops ABDOMEN: Abdomen soft, non-tender, BS normal, No masses or organomegaly EXTREMITIES: no edema no calf tenderness CBC: Recent Labs 08/24/24 0616 WBC 10.75 RBC 3.54* HB 10.5* HCT 32.6* PLT 219 MCV 92.1 MCH 29.7 MPV 10.2 Coags: CMP: Recent Labs 08/24/24 0616 NA 137 K 4.6 CHLOR 104 CO2 26 BUN 15 CREAT 0.84 GLUC 99 CA 8.4* ANION 7* Cardiac Enzymes: Liver Function, Amylase, Lipase: No results for input(s): TPROT, ALB, ALT, AST, ALKPHOS, TBILI, AMYLASE, LIPASE, LACTATE in the last 24 hours. ABG's: No results for input(s): PH, PCO2, PO2, BE, HCO3, CO2CT, O2HB, COHB, MHGB, TEMP, PHTC, PCO2T, PO2T, O2AD in the last 24 hours. MG/PHOS: No results for input(s): MG, P in the last 24 hours. SIGNATURE: Maykel Govea, [facility] [id number] NoteHNO ID: [id number] Author: MACIE COOPER PA-C Service: General Surgery Author Type: Physician Medical Scientist Type: Progress Notes Filed: 08/23/2024 17:02 Note Text: POSTOP PROGRESS NOTE SERVICE DATE: 08/23/2024 SERVICE TIME: 4:58 PM Subjective CHIEF COMPLAINT: right knee pain INTERVAL HISTORY OF PRESENT ILLNESS: This is a 64 year old female postop Right Robotic Knee Replacement with Dr Vasquez. Patient rates her pain 5/10 and states she just received a pain pill. Dinner tray just arrived bedside. PT evaluated: Yes Objective PHYSICAL EXAM: BP 112/67 Pulse 79 Temp (Src) 97.3 (Oral) Resp 16 Ht 5' 7 (1.70m) Wt 154 lb 5.2 oz (70.0kg) SpO2 99% BMI 24.16 kg/(m2). O2 Therapy: Nasal Cannula, Liters: 3.00 Physical Exam: Right Leg: Sensation intact to light touch. Patient is able to dorsiflex and plantarflex the right ankle. Patient is able to wiggle toes. Jesse Wrap dressings and Ice Man dry and in place. 2 Liters nasal canula of O2 in place. Patient denies any SOB or chest pain. Educated patient in how to use her breathing apparatus. Assessment AND Plan Primary osteoarthritis of both knees POSTOP PLANS: As indicated per Orthopedic services Proceed with Surgeon's post operative plan. Advised patient to reach out to nurse if issues occur. SIGNATURE: Macie Cooper PA-C PATIENT NAME: Mariam Minaya DATE: August 23, 2024 TIME: 4:58 PMC[facility] Clinic [facility] [id number] Telephone encounter Note* Telephone Encounter - Alexandrea Young - 08/23/2024 3:20 PM EST Images from the original note were not included. Date/Time: 08/23/2024 3:24 PM Spoke with Mariam @ phone #: [phone] - Preferred # for contact: [phone] Have you received help from a home care company in the last 60 days? no Are you agreeable to [facility] services? yes What address will we be seeing you at? [address] [place] [address] Do you have any upcoming appointments or things we need to schedule around? no Do you have a teachable CG or can you manage your care independently? yes Who? Have you received the flu shot? no If so, when and where? no [facility] Work Phone: 1(530) 486-419512-17-2024 Miscellaneous Notes* Telephone Encounter - HectorAlexandrea - 08/23/2024 3:20 PM EST Images from the original note were not included. Date/Time: 08/23/2024 3:24 PM Spoke with Mariam @ phone #: [phone] - Preferred # for contact: [phone] Have you received help from a home care company in the last 60 days? no Are you agreeable to [facility] services? yes What address will we be seeing you at? [address] [facility] [address] Do you have any upcoming appointments or things we need to schedule around? no Do you have a teachable CG or can you manage your care independently? yes Who? Have you received the flu shot? no If so, when and where? no documented in this encounterPrem[facility] Health [facility]12-17-2024 NoteHNO ID: [id number] Author: STEPHEN MANZANO SRNA Service: ? 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 Staffing Anesthesiologist: Miya Hayes MD SRNA: Stephen Manzano SRNA Performed by: SERGE Indications and Patient Condition Indications for airway management: anesthesia Preoxygenated: yes anesthesia circuit Patient position: sniffing Method: asleep Difficult Mask: No Final Airway Details Final airway type: supraglottic airway Number of attempts at approach: 1 Final Supraglottic Airway: i-gel Size 3 Seal Adequate: yes Failed airway: no Airway not difficult SIGNATURE: SERGE Coyle PATIENT NAME: Mariam Minaya DATE: August 23, 2024 TIME: 7:54 AM CSN: [id number] NoteHNO ID: [id number] Author: MIYA HAYES MD Service: ? Author Type: Anesthesiologist Type: Anesthesia Procedure Notes Filed: 08/23/2024 07:35 Note Text: ANESTHESIOLOGY PROCEDURE NOTE Peripheral Nerve Block General Information Procedure Start Time/Medication Administration: 08/23/2024 7:19 AM Procedure End time: 08/23/2024 7:23 AM Patient location during procedure: pre-op Timeout Performed Pre-procedure: timeout performed Consent Obtained: Yes Patient 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: arm band Reason for block: post-op pain management/at surgeon's request Staffing Anesthesiologist: Miya Hayes MD SRNA: Stephen Manzano SRNA Performed by: anesthesiologist and SRNA Preparation Sterility Preparation: hand hygiene performed prior to procedure, sterile gloves, drapes, and procedure tray, surgical cap used, mask used, sterile drape used during line insertion, skin prep agent completely dried prior to procedure Sterility Technique Not Completely Performed Due to Extreme Emergency: No Site Prep: Chloraprep Pre-Procedure Neuro Exam Location: RLE Sensory: intact Motor: intact Procedure Details Patient Position: supine Monitoring: Pulse OX, EKG and NIBP Block Type Lower Extremity: distal femoral (adductor canal) Laterality: right Injection Technique: single-shot Ultrasound Guided: Yes Image in Chart: yes Local Infiltration: Yes Needle Needle Type: echogenic Needle Gauge: 20 G Needle Length: 100 mm Needle Localization: ultrasound Assessment Injection assessment: negative aspiration, no paresthesia on injection, incremental injection and local visualized surrounding nerve on ultrasound Paresthesia: immediately resolved Medications Administered ropivacaine (PF) 5 mg/mL (0.5 %) injection (NAROPIN) - peripheral nerve block 15 mL - 08/23/2024 7:19:00 AM dexamethasone sodium phosphate injection (DECADRON) - peripheral nerve block 4 mg - 08/23/2024 7:19:00 AM SIGNATURE: Miya Hayes MD PATIENT NAME: Mariam Minaya DATE: August 23, 2024 TIME: 7:32 AM CSN: [id number] Instructions* Patient Instructions* Alberto Matias MD - 08/09/2024 2:12 PM EST Please continue same dose of levothyroxine for now Labs to be done in 4 weeks from now Please also complete neck imaging (ultrasound of neck) before next appointment documented in this encounterPremier Health [facility]12-03-2024 NoteC[facility]12-03-[facility] History of Present illness Narrative* Alberto Matias MD - 08/09/2024 2:01 PM EST [facility] Initial Clinic Visit Note Consulted by: self referral Chief Complaint: thyroid cancer HPI: This is a 64 year old female who presents as a new patient to me for follow up on thyroid cancer. She was seen Dr. Prajapati in the past, but has transferred care to different endocrinologists at [facility]. She was last seen by Dr. Hernández in 03/2020 via virtual visit. Per chart documentation: She had thyroid cancer that was found in 2003 when she was found to have a calcified nodule that was aspirated and she was found to have papillary cancer. There were no other foci of cancer. She recalls that the nodules were very small. She had total thyroidectomy done by Dr. Jesus Laws Per Dr. Prajapati`s note from 08/22/14, the patient had Thyroid micro CA , papillary/follicular variant, treated with GAMING because of concerns at that time for using TNF alpha agents (Humira, then Etanercept) in a patient with thyroid CA. Switched to Tirosint 150 mcg in January 2017 then switched to synthroid She had surgery in 2006, and GAMING specifically in 02/2007 GAMING dose was 100 mCi Current regimen: Levothyroxine 112 mcg daily, changed from 125 mcg daily 1 to 2 months ago She had symptoms of feeling hot, increased hunger, irritable and her PCP reduced the dose of LT4, prior to that she was getting the medication refilled by her PCP as she has not seen Endo in 4 years She thinks her symptoms mentioned above could also be related to RA as the inflammatory condition was worse. She is scheduled to undergo left knee replacement soon Today she denied any specific symptoms except for joint pains, especially in her knees PAST MEDICAL HISTORY: PAST MEDICAL HISTORY Diagnosis Date Astigmatism, regular 12/22/2015 Chronic bilateral low back pain with sciatica 12/10/2015 Chronic kidney insufficiency, stage 3 (moderate) (HCC) 04/06/2018 Encounter for gynecological examination 05/03/2019 [facility]. 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 RA (rheumatoid arthritis) (HCC) + RF, +CCP OVERLAP PsA (+NAIL disease, dactylitis, axial inflammatory sx) Sjogren's syndrome (HCC) Neg SSA SSB in January 2009 Thyroid cancer (HCC) 09/07/[address] Maldonado removed, radioactive iodine ablation. papillary Vitamin D deficiency PAST SURGICAL HISTORY: PAST SURGICAL HISTORY Procedure Laterality Date BREAST AUGMENTATION W/PROSTHETIC IMPLANT 2000 bilateral implants BX BREAST PERC NEED W/GUID 10/29/11 U/S needle core left axillary LN COLONOSCOPY FLX DX W/COLLJ SPEC WHEN PFRMD 09/07/2010 Colonoscopy, repeat 10 yrs EGD TRANSORAL BIOPSY SINGLE/MULTIPLE 11/06/06 Hiatal hernia, gastritis, retained food ESOPHAGOGASTRODUODENOSCOPY TRANSORAL DIAGNOSTIC EGD ESOPHAGOGASTRODUODENOSCOPY TRANSORAL DIAGNOSTIC 03/15/2015 EGD FNA (FINE NEEDLE ASPIRATION) 10/15/06 U/S FNA right thyroid nodule FNA WITH IMAGING 09/22/11 U/S FNA left axillary mass KNEE ARTHROSCOPY Left 2009 LIG/TRNSXJ FLP TUBE ABDL/VAG APPR UNI/BI Tubal ligation NEUROPLASTY &/TRANSPOS MEDIAN NRV CARPAL TUNNE Left 05/30/16 Carpal tunnel decomp NEUROPLASTY &/TRANSPOS MEDIAN NRV CARPAL TUNNE Right 09/26/2016 Carpal tunnel decomp PAST SURGICAL HISTORY OF 2010 removal of implants & replace & pannilectomy SYNOVECTOMY EACH 1999 left wrist THYROIDECTOMY TOTAL/COMPLETE 11/10/06 TONSILLECTOMY & ADENOIDECTOMY <AGE 12 Tonsillectomy VAGINAL HYSTERECTOMY UTERUS 250 GM/< 2004 Hysterectomy, vaginal FAMILY HISTORY: FAMILY HISTORY Problem Relation Age of Onset None Mother Cancer Father Breast Cancer Sister Thyroid Sister cancer s/p thyroidectomy Diabetes Brother from type I dx/d age 9 Diabetes Grandchild Type I age 8 SOCIAL HISTORY: Social History Tobacco Use Smoking status: Never Passive exposure: Never Smokeless tobacco: Never Vaping Use Vaping status: Never Used Substance Use Topics Alcohol use: No Comment: rare ; deo. wine Drug use: No MEDICATIONS: Current Outpatient Medications Medication Sig mupirocin (BACTROBAN) 2 % ointment Apply 0.5 inch with cotton swab (Q-tip) to each nostril in the morning and evening for 5 days prior to and including day of surgery. gabapentin (NEURONTIN) 300 mg capsule Take 1 capsule by mouth three times a day for 90 days. Take with 600 mg of Gabapentin phentermine-topiramate ER (QSYMIA) 15-92 mg 24 Hr Capsule Take 1 capsule by mouth once daily gabapentin (NEURONTIN) 600 mg tablet Take 1 tablet by mouth three times a day for 180 days. levothyroxine (SYNTHROID) 112 mcg tablet Take 1 tablet by mouth once daily. Take on empty stomach. For thyroid hydrOXYchloroQUINE (PLAQUENIL) 200 mg tablet Take 1 and a half tablets by mouth once daily. ascorbic acid (VITAMIN C ORAL) Take 1 tablet by mouth once daily. Cholecalciferol, Vitamin D3, 50 mcg (2,000 unit) cap Take 1 capsule by mouth twice daily. polyethylene glycol 3350 (MIRALAX) 17 gram/dose powder 17gm in 8oz daily until stools regular (for constipation) vitamin b complex tab Take 1 tablet by mouth once daily. No current facility-administered medications for this visit. ALLERGIES: ALLERGIES Allergen Reactions Humira [Adalimumab] Hives welt at injection site Tessalon [Benzonata* Other: See Comments hypersensitive Albuterol Other: See Comments severe leg cramps Amicar [Aminocaproi* Rash Flovent [Fluticason* Rash Methotrexate Contraindication-Medical Surgical elevated liver enz REVIEW OF SYSTEMS: GENERAL: No weight loss, malaise or fevers HEENT: Negative for frequent or significant headaches, No changes in hearing or vision, no nose bleeds or other nasal problems NECK: Negative for lumps, goiter, pain and significant neck swelling RESPIRATORY: Negative for cough, hemoptysis, wheezing, COPD, dyspnea or shortness of breath CARDIOVASCULAR: Negative for chest pain, leg swelling, hypertension, CHF or palpitations GI: No nausea, vomiting, or diarrhea MUSCULOSKELETAL: Negative for joint pain or swelling, back pain or muscle pain SKIN: Negative for lesions, rash, and itching ENDOCRINE: Negative for cold or heat intolerance, polyuria, polydipsia and goiter NEURO: No history of headaches, syncope, paralysis, seizures or tremors All other reviewed and negative other than HPI. PHYSICAL EXAM: BP 116/76 (BP Site: Right Arm, BP Position: Sitting, BP Cuff Size: Regular Adult) Pulse 79 Resp20 Ht 170.2 cm (5' 7) Wt 68.9 kg (151 lb 12.8 oz) SpO2 99% BMI 23.78 kg/m Body mass index is 23.78 kg/m . General Appearance: Well appearing, alert, in no acute distress, well-hydrated, well nourished, thin built. She had difficulty getting up from chair and walking Skin: Skin color, texture, turgor normal, no suspicious rashes or lesions. Eyes: Anicteric sclera. Extraocular movements are intact. Neck: lower neck/upper chest transverse scar from thyroidectomy, well healed, no keloids Lungs: unlabored on room air Heart: Regular rate and rhythm Extremities: No deformities, edema, skin discoloration, clubbing or cyanosis. No tremors Musculoskeletal: No joint swelling, deformity, or tenderness. Peripheral Pulses: Normal. Neurologic: Gait normal. Reflexes are diminished B/L LABS: Latest Reference Range & Units 01/03/03 12:10 01/11/04 10:41 06/20/05 12:19 09/08/06 16:33 11/20/06 09:40 02/04/07 11:36 03/03/07 11:16 03/24/07 07:43 08/12/07 08:36 09/02/07 16:55 09/24/07 07: 07:43 03/20/08 16:13 06/16/08 08:24 04/25/09 07:43 11/13/09 07:36 12/02/10 10:18 12/10/10 07:30 01/24/11 12:33 07/25/11 07:46 01/29/12 07:39 11/11/12 10:31 06/17/13 09:22 07/29/13 10:00 09/20/13 08:42 01/03/14 07:49 05/25/14 10:10 06/30/14 17:20 08/16/14 19:36 10/03/14 13:48 12/27/14 10: 09:26 11/08/15 12:08 10/10/16 18:55 01/05/17 12:23 10/26/17 12:33 05/03/18 15:46 04/25/19 14:43 08/29/19 13:54 04/09/20 14:13 04/09/21 17:00 09/16/21 16:08 08/06/23 09:15 05/26/24 08:45 Free T4 0.9 - 1.7 ng/dL 1.3 1.2 1.2 1.0 1.4 1.6 1.0 0.5 (L) 1.1 1.3 2.2 (H) 1.8 (H) 1.8 (H) 1.9 (H) TSH 0.270 - 4.200 mIU/L 1.430 1.520 0.114 (L) 5.700 (H) 15.620 (H) 0.028 (L) 0.042 (L) 0.078 (L) 0.266 (L) 2.570 11.360 (H) 33.360 (H) 0.055 (L) 0.595 1.970 17.500 (H) 0.005 (L) 0.015 (L) 0.018 (L) 0.666 0.071 (L) T3 79 - 165 ng/dL 99 Thyroglobulin Ab <14.4 IU/mL 2.0 1.9 1.2 TSH, Terrance 0.400 - 5.500 uIU/mL 1.78 2.06 1.15 2.26 13.92 (H) 77.57 (HH) 42.43 (HH) 1.82 1.25 0.44 (L) 0.11 (L) 0.24 (L) 0.14 (L) 11.490 (H) 6.320 (H) 0.044 (L) 3.430 Thyroglobulin 1.6 - 59.9 ng/mL 0.5 (L) <0.2 (L) <0.2 (L) <0.2 (L) <0.2 (L) <0.2 (L) <0.2 (L) <0.2 (L) <0.2 (L) <0.2 (L) <0.2 (L) <0.2 (L) <0.2 (L) <0.2 (L) 0.4 (L) <0.2 (L) <0.2 (L) <0.2 (L) (HH): Data is critically high (L): Data is abnormally low (H): Data is abnormally high Imaging: US thyroid/parathyroid 05/26/2018: CERVICAL LYMPH NODE MAPPING ULTRASOUND 05/26/2018 CLINICAL [...] THYROIDECTOMY BED. MULTIPLE SUBCENTIMETER BENIGN-APPEARING LYMPH NODES. US cervical LN mappin10/03/2019: CLINICAL HISTORY: Post thyroidectomy, papillary thyroid cancer. Follow-up surveillance. COMPARISON: Ultrasound 05/26/2018. TECHNIQUE: Sonography of the cervical lymph node stations was performed bilaterally. Images were obtained and stored in a permanent archive. RESULT: Post total thyroidectomy. No suspicious lesions at the thyroidectomy bed. Right neck: - Level I: No abnormal [...] : No abnormal lymph nodes. IMPRESSION: NO SUSPICIOUS LESIONS AT THE THYROIDECTOMY BED. NO CERVICAL CHAIN LYMPHADENOPATHY. ASSESSMENT : 64 year old female presenting for follow up of thyroid cancer, s/p surgery and GAMING in 2006. She is new to me Per previous notes, Thyroid micro CA , papillary/follicular variant, treated with GAMING because of concerns at that time for using TNF alpha agents (Humira, then Etanercept) in a patient with thyroid CA. It has been more than 15 years since cancer treatment, and per surgical pathology on chart review, this can be considered low risk of recurrence She has not seen Endo since 03/2020, no new labs for tumor markers available PLAN: - I discussed with her that she continue the same dose of LT4 112 mcg daily. She has not had any labs since dose change abiut 1 month ago - Recommended labs - TSH, TG, TG ab - Recommended US cervical LN mapping Thyroid cancer (HCC) - THYROGLOBULIN, SERUM WITH REFLEX TO IA OR LC-MS/MS; Future - THYROID STIMULATING HORMONE; Future - US CERVICAL LYMPH NODE MAPPING; Future FOLLOW UP: in 3 months after investigations are completed If every thing is normal, follow up can be done once yearly Medical Decision Making: Problems: Moderate: 1+ chronic illnesses with change Data: Unique test result(s) reviewed: 3+ Unique test(s) ordered: 3+ Independent interpretation of test from other physician/QHCP Risk: Moderate: Moderate risk from testing/treatment Medical Decision Making Level: 4 - Moderate Alberto Matias MD Endocrinology Associate Staff [facility] [place] [phone] [facility] History and physical note * Kacy Olivas APRN.BUILDING MAINTENANCE SUPERVISOR - 08/08/2024 3:44 PM EST Images from the original note were not included. [facility] HISTORY AND PHYSICAL EXAMINATION SERVICE DATE: 08/08/2024 SERVICE TIME: 6:45 AM PRIMARY CARE PHYSICIAN: Laura Robertson MD Assessment Patient has the following medical conditions which may affect richard-operative course: Primary fibromyalgia syndrome Assessment: controlled on rx GERD (gastroesophageal reflux disease) Assessment: denies any current symptoms or tx Chronic kidney insufficiency, stage 3 (moderate) ([facility]) Assessment: hx, resolved Creatinine Date Value Ref Range Status 08/08/2024 0.84 0.58 - 0.96 mg/dL Final 05/17/2024 0.91 0.58 - 0.96 mg/dL Final 07/16/2023 0.79 0.58 - 0.96 mg/dL Final 05/20/2023 0.77 0.58 - 0.96 mg/dL Final Thyroid cancer ([facility]) Assessment: s/p thyroidectomy and GAMING RA (rheumatoid arthritis) ([facility]) Assessment: controlled on rx, following rheumatology Psoriasis Assessment: following rheumatology Osteopenia Assessment: taking supplement Constipation Assessment: rx as needed Postoperative hypothyroidism Assessment: on rx, asymptomatic TSH Date Value Ref Range Status 05/26/2024 0.071 (L) 0.270 - 4.200 mIU/L Final Garza Activity Status Index: METS: Climb a flight of stairs or walk up a hill (5.50 METs) DASI Score: 5.5 Patient denies any chest pain or undue shortness of breath with the above physical activity. Clinical Frailty Scale: 3. Well, with treated comorbid disease STOP-Bang Score: Patient over 50 years old Denies snoring loudly Denies feeling tired, fatigued, or sleepy during the daytime Has not been observed to stop breathing or choking/gasping during sleep Denies having high blood pressure BMI less than or equal to 35 kg/m^2 Does not have a large neck Non-male patient STOP-Bang Score: 1 [id number] Score: Age: <65 Sex: female CHF history: No Hypertension history: No Stroke/TIA/thromboembolism history: No Vascular disease history: No Diabetes history: No [id number] Score: 1 ARISCAT Score: Age: 51-80 Preoperative SpO2: >=96% Respiratory infection in the last month: No Preoperative anemia: No Surgical incision: peripheral Duration of surgery: 2-3 hrs Emergency procedure: No ARISCAT Score: 19 ANESTHESIA FINDINGS: Intubation History: No history of difficult intubation Significant Anesthesia Considerations: none Airway History: No history of difficult airway I - PHYSICAL EVALUATION AIRWAY Patient intubated: No. Tracheostomy tube not present Mallampati: III. TM distance: >3 FB. Neck ROM: full ROM without neurological symptoms. Mouth opening: adequate. Short neck: no. Thick neck: no Manning present: no Lip Bite Test: I Microretrognathia/Micronagthia/Recessed Chin: No DENTAL Dental findings: teeth intact. II - ANESTHESIA PLAN Anesthetic Plan: other Beta Jacob Monitoring Plan Post Procedure Analgesic Plan Prepared for Surgery: optimally prepared for surgery. Labs-reviewed, okay to proceed-JL CONSULTS: Patient does not require consults for optimization at this time Planned Anesthetic: other anesthesia choice The Following Tests/Procedures Have Been Initiated: Orders Placed This Encounter >CBC + AUTO DIFF Standing Status: Future Number of Occurrences: 1 Standing Expiration Date: 11/07/2024 >CMP Standing Status: Future Number of Occurrences: 1 Standing Expiration Date: 11/07/2024 DISCONTD: mupirocin (BACTROBAN) 2 % ointment Sig: Apply 0.5 inch with cotton swab (Q-tip) to each nostril in the morning and evening for 5 days prior to and including day of surgery. Dispense: 22 g Refill: 0 mupirocin (BACTROBAN) 2 % ointment Sig: Apply 0.5 inch with cotton swab (Q-tip) to each nostril in the morning and evening for 5 days prior to and including day of surgery. Dispense: 22 g Refill: 0 REASON FOR VISIT: Mariam Minaya is a 64 year old female who is scheduled for Procedure(s): ROBOTIC ASSISTED TOTAL KNEE ARTHROPLASTY [place] (Right) at the request of Dr. Nathaniel Vasquez for consultation. My final recommendation will be communicated back to the requesting physician by way of shared medical record or letter. Subjective The patient has the following: COVID-19 Immunization Status Overdue - Covid-19 Vaccine (1) Never done No completion, postpone, frequency change, or communication history exists for this topic. CHIEF COMPLAINT: Pre-op exam HPI: Mariam Minaya is a 64 year old seen for PAC due to scheduled above surgery because of OA left knee. 04/20/24, Dr. Nathaniel Vasquez HPI: Mariam Minaya is a 63 year old patient with the presenting complaint of Established Patient and Knee Pain of the Left Knee and Established Patient and Knee Pain of the Right Knee. Mariam Minaya has had progressive problems with the knee(s) most of the day over the past 2 year(s) interfering with activities which include walking. The problem began limiting activities 1-3 years ago. Mariam reports a current pain level of 7 (Knee-Right). She describes the pain as Aching, Burning, Numbness, Sharp, Throbbing. The pain is Continuous, and has lasted for 22 Hours . Interventions tried include Medication, Relaxation, Cold, Pillow support. PROMIS Physical Function Score Descriptive Summary for PROMIS Physical Function T-score = 33 (Percentile 4) Much difficulty - Carry a laundry basket up a flight of stairs. Some difficulty - Walk at a normal speed. Unable - Walk more than a mile (1.6 km). 02/06/2024 03/10/2024 04/06/2024 PROMIS CAT Physical Function T-Score 34 (moderate dysfunction) 34 (moderate dysfunction) 33 (moderate dysfunction) Percentile 5 5 4 FUNCTIONAL STATUS: Do yardwork, such as raking leaves, weeding,or pushing a power mower (4.50 METs) PREVIOUS TREATMENTS: Last knee-related PT visit: 04/08/2024 (Knee - Right) Most recent knee injection: Large Joint Arthro/Inj: L knee joint (injected on 12/28/2023 by Nydia Wade) Current Anti-Inflammatory medications: prednisone Past anti-inflammatory medications (not necessarily for this reason for visit): betamethasone acetate,sod phos, celecoxib, dexamethasone, hydrocortisone sodium succ/PF, ketorolac tromethamine, methylprednisolone, methylprednisolone sod succ/PF, naproxen, prednisone Medical Treatments: Steroid Injections Left Knee, Steroid Injections Right Knee REVIEW OF SYSTEMS: General: No weight loss, malaise or fevers. Neurological: No history of TIA's, stroke, OBSTETRICS NURSE PRACTITIONER tumor, impaired sensorium, hemiplegia, paraplegia orquadraplegia. No neurological symptoms or problems. Respiratory: No history of current cough or dyspnea, or pneumonia in the past 6 weeks. No history of respiratory/pulmonary symptoms or problems. Cardiovascular: No history of HTN requiring medication, no history of angina, CHF, DC, cardiac surgery or stents. Denies rest pain, gangrene or revascularization/amputation for PVD. No history of cardiovascular symptoms or problems. GI: +constipation, rx as needed . No history of GI symptoms or problems. No history of esophageal varices, recent ascites, or ETOH greater than 2 drinks per day. : No history of dysuria, frequency or incontinence, stones or chronic kidney disease. No difficulty urinating, nocturia > 1 time per night or hematuria. VACCINE SPECIALIST: Negative for abnormal vaginal bleeding, abnormal vaginal discharge. Endocrine: Positive for: hypothyroidism (on rx). Negative for: diabetes mellitus. Hematology: No history of bleeding or clotting disorder. Patient is not taking anti-coagulation or platelet medications. No history of hematological symptoms or problems. Oncology: +thyroid CA s/p thyroidectomy and GAMING Psych: No history of psychiatric symptoms or problems. Musculoskeletal: See HPI. +psoriatic Positive for: rheumatoid arthritis. 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 PAST MEDICAL HISTORY Diagnosis Date Astigmatism, regular 12/22/2015 Chronic bilateral low back pain with sciatica 12/10/2015 Chronic kidney insufficiency, stage 3 (moderate) (HCC) 04/06/2018 Encounter for gynecological examination 05/03/2019 [facility]. 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 RA (rheumatoid arthritis) (HCC) + RF, +CCP OVERLAP PsA (+NAIL disease, dactylitis, axial inflammatory sx) Sjogren's syndrome (HCC) Neg SSA SSB in January 2009 Thyroid cancer (HCC) 09/07/[address] Joel de los santos, radioactive iodine ablation. papillary Vitamin D deficiency PAST SURGICAL HISTORY Procedure Laterality Date BREAST AUGMENTATION W/PROSTHETIC IMPLANT 2000 bilateral implants BX BREAST PERC NEED W/GUID 10/29/11 U/S needle core left axillary LN COLONOSCOPY FLX DX W/COLLJ SPEC WHEN PFRMD 09/07/2010 Colonoscopy, repeat 10 yrs EGD TRANSORAL BIOPSY SINGLE/MULTIPLE 11/06/06 Hiatal hernia, gastritis, retained food ESOPHAGOGASTRODUODENOSCOPY TRANSORAL DIAGNOSTIC EGD ESOPHAGOGASTRODUODENOSCOPY TRANSORAL DIAGNOSTIC 03/15/2015 EGD FNA (FINE NEEDLE ASPIRATION) 10/15/06 U/S FNA right thyroid nodule FNA WITH IMAGING 09/22/11 U/S FNA left axillary mass KNEE ARTHROSCOPY Left 2009 LIG/TRNSXJ FLP TUBE ABDL/VAG APPR UNI/BI Tubal ligation NEUROPLASTY &/TRANSPOS MEDIAN NRV CARPAL TUNNE Left 05/30/16 Carpal tunnel decomp NEUROPLASTY &/TRANSPOS MEDIAN NRV CARPAL TUNNE Right 09/26/2016 Carpal tunnel decomp PAST SURGICAL HISTORY OF 2010 removal of implants & replace & pannilectomy SYNOVECTOMY EACH 1999 left wrist THYROIDECTOMY TOTAL/COMPLETE 11/10/06 TONSILLECTOMY & ADENOIDECTOMY Tonsillectomy VAGINAL HYSTERECTOMY UTERUS 250 GM/< 2004 Hysterectomy, vaginal FAMILY HISTORY Problem Relation Age of Onset None Mother Cancer Father Breast Cancer Sister Thyroid Sister cancer s/p thyroidectomy Diabetes Brother from type I dx/d age 9 Diabetes Grandchild Type I age 8 Social History Tobacco Use Smoking status: Never Passive exposure: Never Smokeless tobacco: Never Vaping Use Vaping status: Never Used Substance Use Topics Alcohol use: No Comment: rare ; deo. wine Drug use: No Prior to Admission medications as of 08/09/24 1342 Medication Sig Last Dose Taking gabapentin (NEURONTIN) 300 mg capsule Take 1 capsule by mouth three times a day for 90 days. Take with 600 mg of Gabapentin Taking Yes phentermine-topiramate ER (QSYMIA) 15-92 mg 24 Hr Capsule Take 1 capsule by mouth once daily TakingYes gabapentin (NEURONTIN) 600 mg tablet Take 1 tablet by mouth three times a day for 180 days. Taking Yes levothyroxine (SYNTHROID) 112 mcg tablet Take 1 tablet by mouth once daily. Take on empty stomach. For thyroid Taking Yes hydrOXYchloroQUINE (PLAQUENIL) 200 mg tablet Take 1 and a half tablets by mouth once daily. Taking Yes ascorbic acid (VITAMIN C ORAL) Take 1 tablet by mouth once daily. Taking Yes Cholecalciferol, Vitamin D3, 50 mcg (2,000 unit) cap Take 1 capsule by mouth twice daily. Taking Yes polyethylene glycol 3350 (MIRALAX) 17 gram/dose powder 17gm in 8oz daily until stools regular (for constipation) Taking Yes vitamin b complex tab Take 1 tablet by mouth once daily. Taking Yes mupirocin (BACTROBAN) 2 % ointment Apply 0.5 inch with cotton swab (Q-tip) to each nostril in the morning and evening for 5 days prior to and including day of surgery. No medication comments found. ALLERGIES Allergen Reactions Humira [Adalimumab] Hives welt at injection site Tessalon [Benzonata* Other: See Comments hypersensitive Albuterol Other: See Comments severe leg cramps Amicar [Aminocaproi* Rash Flovent [Fluticason* Rash Methotrexate Contraindication-Medical Surgical elevated liver enz Objective PHYSICAL EXAM: General: alert and oriented (x3) and healthy appearance. Pertinent negatives noted - not distressed. Skin: normal color, no rash or lesions. HEENT: EOM intact and pupils equal round. Pertinent negatives noted - no carotid bruit. Cardiovascular: regular rate and rhythm, normal S1 and S2, no rub, murmurs, or gallop. Respiratory: normal breath sounds, no wheezes or crackles. No chest wall deformity or tenderness. Abdomen: soft. Pertinent negatives noted - not tender. Extremities: no deformity, no edema or tenderness, no joint swelling or clubbing. Neurological: normal cognition and motor skills. Gait normal. No weakness or sensory deficit. PAIN ASSESSMENT: Pain Pain Level: 7 Pain Location: Knee-Right Description: Throbbing, Burning Duration Amount of Time: 2 Duration Units: Years Frequency: Continuous Intervention/Comfort measure: Medication VITALS: BP 120/80 Pulse 82 Temp (Src) 97.9 (Temporal) Resp 14 Ht 5' 7 (1.70m) Wt 154 lb (69.9kg) SpO2 99% BMI 24.11 kg/(m^2). Diagnostic tests reviewed for today's visit: Lab Value Units Date High Low HB 13.0 g/dL 08/08/2024 15.5 11.5 HCT 38.9 % 08/08/2024 46.0 36.0 WBC 6.61 k/uL 08/08/2024 11.00 3.70 PLT 268 k/uL 08/08/2024 400 150 NA 140 mmol/L 08/08/2024 144 136 K 4.1 mmol/L 08/08/2024 5.1 3.7 GLUC 82 mg/dL 08/08/2024 99 74 BUN 20 mg/dL 08/08/2024 21 7 CREAT 0.84 mg/dL 08/08/2024 0.96 0.58 PTSEC No results within date range. INR No results within date range. APTT No results within date range. ALT 18 U/L 08/08/2024 38 7 AST 24 U/L 08/08/2024 35 13 TBILI 0.3 mg/dL 08/08/2024 1.3 0.2 TSH 0.071 mIU/L 05/26/2024 4.200 0.270 Lab Value Units Date High Low HCGQT No results within date range. UHCG No results within date range. HCG, BODY* No results within date range. Lab Value Units Date High Low ABORHD No results within date range. ABSCREEN No results within date range. Hemoglobin A1C (%) Date Value 05/03/2019 5.4 12/27/2014 5.5 No results found for this or any previous visit (from the past 8760 hour(s)). No results found for this or any previous visit (from the past 69770 hour(s)). Instructions Given to Patient: Instructions located in the after visit summary. Patient given verbal and written preop instructions and voices comprehension and compliance. SIGNATURE: Kacy Olivas APRN.CNP PATIENT NAME: Mariam Minaya DATE: August 08, 2024 TIME: 3:45 PM PAGER/CONTACT #: [facility]12-02-2024 History and physical note* Kacy Olivas APRN.CNP - 08/08/2024 3:44 PM EST Images from the original note were not included. [facility] Pre[facility]est[facility] HISTORY AND PHYSICAL EXAMINATION SERVICE DATE: 08/08/2024 SERVICE TIME: 6:45 AM PRIMARY CARE PHYSICIAN: Laura Robertson MD Assessment Patient has the following medical conditions which may affect richard-operative course: Primary fibromyalgia syndrome Assessment: controlled on rx GERD (gastroesophageal reflux disease) Assessment: denies any current symptoms or tx Chronic kidney insufficiency, stage 3 (moderate) ([facility]) Assessment: hx, resolved Creatinine Date Value Ref Range Status 08/08/2024 0.84 0.58 - 0.96 mg/dL Final 05/17/2024 0.91 0.58 - 0.96 mg/dL Final 07/16/2023 0.79 0.58 - 0.96 mg/dL Final 05/20/2023 0.77 0.58 - 0.96 mg/dL Final Thyroid cancer ([facility]) Assessment: s/p thyroidectomy and GAMING RA (rheumatoid arthritis) ([facility]) Assessment: controlled on rx, following rheumatology Psoriasis Assessment: following rheumatology Osteopenia Assessment: taking supplement Constipation Assessment: rx as needed Postoperative hypothyroidism Assessment: on rx, asymptomatic TSH Date Value Ref Range Status 05/26/2024 0.071 (L) 0.270 - 4.200 mIU/L Final Garza Activity Status Index: METS: Climb a flight of stairs or walk up a hill (5.50 METs) DASI Score: 5.5 Patient denies any chest pain or undue shortness of breath with the above physical activity. Clinical Frailty Scale: 3. Well, with treated comorbid disease STOP-Bang Score: Patient over 50 years old Denies snoring loudly Denies feeling tired, fatigued, or sleepy during the daytime Has not been observed to stop breathing or choking/gasping during sleep Denies having high blood pressure BMI less than or equal to 35 kg/m^2 Does not have a large neck Non-male patient STOP-Bang Score: 1 [id number] Score: Age: <65 Sex: female CHF history: No Hypertension history: No Stroke/TIA/thromboembolism history: No Vascular disease history: No Diabetes history: No [id number] Score: 1 ARISCAT Score: Age: 51-80 Preoperative SpO2: >=96% Respiratory infection in the last month: No Preoperative anemia: No Surgical incision: peripheral Duration of surgery: 2-3 hrs Emergency procedure: No ARISCAT Score: 19 ANESTHESIA FINDINGS: Intubation History: No history of difficult intubation Significant Anesthesia Considerations: none Airway History: No history of difficult airway I - PHYSICAL EVALUATION AIRWAY Patient intubated: No. Tracheostomy tube not present Mallampati: III. TM distance: >3 FB. Neck ROM: full ROM without neurological symptoms. Mouth opening: adequate. Short neck: no. Thick neck: no Manning present: no Lip Bite Test: I Microretrognathia/Micronagthia/Recessed Chin: No DENTAL Dental findings: teeth intact. II - ANESTHESIA PLAN Anesthetic Plan: other Beta Jacob Monitoring Plan Post Procedure Analgesic Plan Prepared for Surgery: optimally prepared for surgery. Labs-reviewed, okay to proceed-JL CONSULTS: Patient does not require consults for optimization at this time Planned Anesthetic: other anesthesia choice The Following Tests/Procedures Have Been Initiated: Orders Placed This Encounter >CBC + AUTO DIFF Standing Status: Future Number of Occurrences: 1 Standing Expiration Date: 11/07/2024 >CMP Standing Status: Future Number of Occurrences: 1 Standing Expiration Date: 11/07/2024 DISCONTD: mupirocin (BACTROBAN) 2 % ointment Sig: Apply 0.5 inch with cotton swab (Q-tip) to each nostril in the morning and evening for 5 days prior to and including day of surgery. Dispense: 22 g Refill: 0 mupirocin (BACTROBAN) 2 % ointment Sig: Apply 0.5 inch with cotton swab (Q-tip) to each nostril in the morning and evening for 5 days prior to and including day of surgery. Dispense: 22 g Refill: 0 REASON FOR VISIT: Mariam Minaya is a 64 year old female who is scheduled for Procedure(s): ROBOTIC ASSISTED TOTAL KNEE ARTHROPLASTY Ronit (Right) at the request of Dr. Nathaniel Vasquez for consultation. My final recommendation will be communicated back to the requesting physician by way of shared medical record or letter. Subjective The patient has the following: COVID-19 Immunization Status Overdue - Covid-19 Vaccine (1) Never done No completion, postpone, frequency change, or communication history exists for this topic. CHIEF COMPLAINT: Pre-op exam HPI: Mariam Minyaa is a 64 year old seen for PAC due to scheduled above surgery because of OA left knee. 04/20/24, Dr. Nathaniel Vasquez HPI: Mariam Minaya is a 63 year old patient with the presenting complaint of Established Patient and Knee Pain of the Left Knee and Established Patient and Knee Pain of the Right Knee. Mariam Minaya has had progressive problems with the knee(s) most of the day over the past 2 year(s) interfering with activities which include walking. The problem began limiting activities 1-3 years ago. Mariam reports a current pain level of 7 (Knee-Right). She describes the pain as Aching, Burning, Numbness, Sharp, Throbbing. The pain is Continuous, and has lasted for 22 Hours . Interventions tried include Medication, Relaxation, Cold, Pillow support. PROMIS Physical Function Score Descriptive Summary for PROMIS Physical Function T-score = 33 (Percentile 4) Much difficulty - Carry a laundry basket up a flight of stairs. Some difficulty - Walk at a normal speed. Unable - Walk more than a mile (1.6 km). 02/06/2024 03/10/2024 04/06/2024 PROMIS CAT Physical Function T-Score 34 (moderate dysfunction) 34 (moderate dysfunction) 33 (moderate dysfunction) Percentile 5 5 4 FUNCTIONAL STATUS: Do yardwork, such as raking leaves, weeding,or pushing a power mower (4.50 METs) PREVIOUS TREATMENTS: Last knee-related PT visit: 04/08/2024 (Knee - Right) Most recent knee injection: Large Joint Arthro/Inj: L knee joint (injected on 12/28/2023 by Nydia Wade) Current Anti-Inflammatory medications: prednisone Past anti-inflammatory medications (not necessarily for this reason for visit): betamethasone acetate,sod phos, celecoxib, dexamethasone, hydrocortisone sodium succ/PF, ketorolac tromethamine, methylprednisolone, methylprednisolone sod succ/PF, naproxen, prednisone Medical Treatments: Steroid Injections Left Knee, Steroid Injections Right Knee REVIEW OF SYSTEMS: General: No weight loss, malaise or fevers. Neurological: No history of TIA's, stroke, OBSTETRICS NURSE PRACTITIONER tumor, impaired sensorium, hemiplegia, paraplegia orquadraplegia. No neurological symptoms or problems. Respiratory: No history of current cough or dyspnea, or pneumonia in the past 6 weeks. No history of respiratory/pulmonary symptoms or problems. Cardiovascular: No history of HTN requiring medication, no history of angina, CHF, DC, cardiac surgery or stents. Denies rest pain, gangrene or revascularization/amputation for PVD. No history of cardiovascular symptoms or problems. GI: +constipation, rx as needed . No history of GI symptoms or problems. No history of esophageal varices, recent ascites, or ETOH greater than 2 drinks per day. : No history of dysuria, frequency or incontinence, stones or chronic kidney disease. No difficulty urinating, nocturia > 1 time per night or hematuria. VACCINE SPECIALIST: Negative for abnormal vaginal bleeding, abnormal vaginal discharge. Endocrine: Positive for: hypothyroidism (on rx). Negative for: diabetes mellitus. Hematology: No history of bleeding or clotting disorder. Patient is not taking anti-coagulation or platelet medications. No history of hematological symptoms or problems. Oncology: +thyroid CA s/p thyroidectomy and GAMING Psych: No history of psychiatric symptoms or problems. Musculoskeletal: See HPI. +psoriatic Positive for: rheumatoid arthritis. 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 PAST MEDICAL HISTORY Diagnosis Date Astigmatism, regular 12/22/2015 Chronic bilateral low back pain with sciatica 12/10/2015 Chronic kidney insufficiency, stage 3 (moderate) (HCC) 04/06/2018 Encounter for gynecological examination 05/03/2019 Seeing the [facility] [place]. 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 RA (rheumatoid arthritis) (HCC) + RF, +CCP OVERLAP PsA (+NAIL disease, dactylitis, axial inflammatory sx) Sjogren's syndrome (HCC) Neg SSA SSB in January 2009 Thyroid cancer (HCC) 09/07/[address] Maldonado removed, radioactive iodine ablation. papillary Vitamin D deficiency PAST SURGICAL HISTORY Procedure Laterality Date BREAST AUGMENTATION W/PROSTHETIC IMPLANT 2000 bilateral implants BX BREAST PERC NEED W/GUID 10/29/11 U/S needle core left axillary LN COLONOSCOPY FLX DX W/COLLJ SPEC WHEN PFRMD 09/07/2010 Colonoscopy, repeat 10 yrs EGD TRANSORAL BIOPSY SINGLE/MULTIPLE 11/06/06 Hiatal hernia, gastritis, retained food ESOPHAGOGASTRODUODENOSCOPY TRANSORAL DIAGNOSTIC EGD ESOPHAGOGASTRODUODENOSCOPY TRANSORAL DIAGNOSTIC 03/15/2015 EGD FNA (FINE NEEDLE ASPIRATION) 10/15/06 U/S FNA right thyroid nodule FNA WITH IMAGING 09/22/11 U/S FNA left axillary mass KNEE ARTHROSCOPY Left 2009 LIG/TRNSXJ FLP TUBE ABDL/VAG APPR UNI/BI Tubal ligation NEUROPLASTY &/TRANSPOS MEDIAN NRV CARPAL TUNNE Left 05/30/16 Carpal tunnel decomp NEUROPLASTY &/TRANSPOS MEDIAN NRV CARPAL TUNNE Right 09/26/2016 Carpal tunnel decomp PAST SURGICAL HISTORY OF 2010 removal of implants & replace & pannilectomy SYNOVECTOMY EACH 1999 left wrist THYROIDECTOMY TOTAL/COMPLETE 11/10/06 TONSILLECTOMY & ADENOIDECTOMY <AGE 12 Tonsillectomy VAGINAL HYSTERECTOMY UTERUS 250 GM/< 2004 Hysterectomy, vaginal FAMILY HISTORY Problem Relation Age of Onset None Mother Cancer Father Breast Cancer Sister Thyroid Sister cancer s/p thyroidectomy Diabetes Brother from type I dx/d age 9 Diabetes Grandchild Type I age 8 Social History Tobacco Use Smoking status: Never Passive exposure: Never Smokeless tobacco: Never Vaping Use Vaping status: Never Used Substance Use Topics Alcohol use: No Comment: rare ; deo. wine Drug use: No Prior to Admission medications as of 08/09/24 1342 Medication Sig Last Dose Taking gabapentin (NEURONTIN) 300 mg capsule Take 1 capsule by mouth three times a day for 90 days. Take with 600 mg of Gabapentin Taking Yes phentermine-topiramate ER (QSYMIA) 15-92 mg 24 Hr Capsule Take 1 capsule by mouth once daily TakingYes gabapentin (NEURONTIN) 600 mg tablet Take 1 tablet by mouth three times a day for 180 days. Taking Yes levothyroxine (SYNTHROID) 112 mcg tablet Take 1 tablet by mouth once daily. Take on empty stomach. For thyroid Taking Yes hydrOXYchloroQUINE (PLAQUENIL) 200 mg tablet Take 1 and a half tablets by mouth once daily. Taking Yes ascorbic acid (VITAMIN C ORAL) Take 1 tablet by mouth once daily. Taking Yes Cholecalciferol, Vitamin D3, 50 mcg (2,000 unit) cap Take 1 capsule by mouth twice daily. Taking Yes polyethylene glycol 3350 (MIRALAX) 17 gram/dose powder 17gm in 8oz daily until stools regular (for constipation) Taking Yes vitamin b complex tab Take 1 tablet by mouth once daily. Taking Yes mupirocin (BACTROBAN) 2 % ointment Apply 0.5 inch with cotton swab (Q-tip) to each nostril in the morning and evening for 5 days prior to and including day of surgery. No medication comments found. ALLERGIES Allergen Reactions Humira [Adalimumab] Hives welt at injection site Tessalon [Benzonata* Other: See Comments hypersensitive Albuterol Other: See Comments severe leg cramps Amicar [Aminocaproi* Rash Flovent [Fluticason* Rash Methotrexate Contraindication-Medical Surgical elevated liver enz Objective PHYSICAL EXAM: General: alert and oriented (x3) and healthy appearance. Pertinent negatives noted - not distressed. Skin: normal color, no rash or lesions. HEENT: EOM intact and pupils equal round. Pertinent negatives noted - no carotid bruit. Cardiovascular: regular rate and rhythm, normal S1 and S2, no rub, murmurs, or gallop. Respiratory: normal breath sounds, no wheezes or crackles. No chest wall deformity or tenderness. Abdomen: soft. Pertinent negatives noted - not tender. Extremities: no deformity, no edema or tenderness, no joint swelling or clubbing. Neurological: normal cognition and motor skills. Gait normal. No weakness or sensory deficit. PAIN ASSESSMENT: Pain Pain Level: 7 Pain Location: Knee-Right Description: Throbbing, Burning Duration Amount of Time: 2 Duration Units: Years Frequency: Continuous Intervention/Comfort measure: Medication VITALS: BP 120/80 Pulse 82 Temp (Src) 97.9 (Temporal) Resp 14 Ht 5' 7 (1.70m) Wt 154 lb (69.9kg) SpO2 99% BMI 24.11 kg/(m^2). Diagnostic tests reviewed for today's visit: Lab Value Units Date High Low HB 13.0 g/dL 08/08/2024 15.5 11.5 HCT 38.9 % 08/08/2024 46.0 36.0 WBC 6.61 k/uL 08/08/2024 11.00 3.70 PLT 268 k/uL 08/08/2024 400 150 NA 140 mmol/L 08/08/2024 144 136 K 4.1 mmol/L 08/08/2024 5.1 3.7 GLUC 82 mg/dL 08/08/2024 99 74 BUN 20 mg/dL 08/08/2024 21 7 CREAT 0.84 mg/dL 08/08/2024 0.96 0.58 PTSEC No results within date range. INR No results within date range. APTT No results within date range. ALT 18 U/L 08/08/2024 38 7 AST 24 U/L 08/08/2024 35 13 TBILI 0.3 mg/dL 08/08/2024 1.3 0.2 TSH 0.071 mIU/L 05/26/2024 4.200 0.270 Lab Value Units Date High Low HCGQT No results within date range. UHCG No results within date range. HCG, BODY* No results within date range. Lab Value Units Date High Low ABORHD No results within date range. ABSCREEN No results within date range. Hemoglobin A1C (%) Date Value 05/03/2019 5.4 12/27/2014 5.5 No results found for this or any previous visit (from the past 8760 hour(s)). No results found for this or any previous visit (from the past 19328 hour(s)). Instructions Given to Patient: Instructions located in the after visit summary. Patient given verbal and written preop instructions and voices comprehension and compliance. SIGNATURE: Kacy Olivas APRN.CNP PATIENT NAME: Mariam Minaya DATE: August 08, 2024 TIME: 3:45 PM PAGER/CONTACT #: documented in this encounter[facility] Instructions* Patient Instructions* Kacy Olivas APRN.CNP - 08/08/2024 3:44 PM EST Images from the original note were not included. [facility] PATIENT PREOPERATIVE INSTRUCTIONS Nathaniel Vasquez* has scheduled you for your procedure at this surgery center: [facility]: [phone] -- [address] [address]. Please read below carefully for your personalized instructions. Dietary Restrictions: - No solid food after midnight. - You may have 12 ounces of clear liquids (water, clear juices such as apple juice or gatorade, carbonated beverages, clear tea, black coffee, jello) until 2 hours before scheduled arrival at facility. Medications: Unless instructed differently below, stay on all of your medications until your surgery. If you start any new medications after today's visit, please contact your surgeon. Pre-Surgery Med Instructions Medication Instructions gabapentin (NEURONTIN) 300 mg capsule Take the day of surgery with a small sip of water phentermine-topiramate ER (QSYMIA) 15-92 mg 24 Hr Capsule Stop 7 days before surgery gabapentin (NEURONTIN) 600 mg tablet Take the day of surgery with a small sip of water levothyroxine (SYNTHROID) 112 mcg tablet Take the day of surgery with a small sip of water hydrOXYchloroQUINE (PLAQUENIL) 200 mg tablet Take the day of surgery with a small sip of water ascorbic acid (VITAMIN C ORAL) Stop 7 days before surgery Cholecalciferol, Vitamin D3, 50 mcg (2,000 unit) cap Stop 7 days before surgery polyethylene glycol 3350 (MIRALAX) 17 gram/dose powder Do not take the day of surgery vitamin b complex tab Stop 7 days before surgery If you start any new medications after today's visit, please contact the surgeon's office. If you are currently using a fkkx-kul-abhm injectable or oral medication for diabetes or weight loss such as Dulaglutide (Trulicity), Exenatide (Byetta, Bydureon), Liraglutide (Victoza, Saxenda), Semaglutide (Ozempic, Wegovy, Rybelsus), or Tirzepatide (Mounjaro), the medicine should be stopped at least 7 days before surgery. These medicines can cause food to remain in your stomach for a very longtime and increase the risks from surgery and anesthesia. Not stopping the medication for a long enough time may result in your surgery being rescheduled. Blood Thinning Medications: - Stop NSAIDS (Ibuprofen, Advil, Aleve, Motrin, Celebrex, Mobic, etc.) 7 days before surgery, as directed by your surgeon. - Stop Aspirin 7 days before surgery, as directed by your surgeon. - Stop ALL herbal and dietary supplements 7 days before surgery. - You may take Tylenol (Acetaminophen) or any of your pain medications that do not contain aspirin or NSAIDS as needed. Important Reminders: - Candy, mints, and tobacco products are NOT permitted the morning of surgery. - Hearing aids, dentures and glasses may be worn the morning of surgery. - NO jewelry, body piercings, makeup, hairpins or contacts are to be worn the day of surgery. If you develop symptoms such as a fever, cold, or flu, or have other changes to your health within TWO DAYS of scheduled surgery or the morning of surgery, please contact the surgery center above. Personal Belongings: -Please have photo ID and insurance cards. -If you do not have a copy of advance directives on file with us, please bring a copy with you on the day of surgery. - Leave ALL valuables and money at home or with family members. For Outpatient Procedures: - YOU MUST HAVE A RESPONSIBLE SALES MARKET LEADER TAKE YOU HOME. A FILE CLERK OR ASSEMBLY INSPECTOR HELPER CANNOT BE MADE A RESPONSIBLE SALES MARKET LEADER. - We recommend that a responsible person stays with you overnight to take care of you. - You cannot stay in a hotel alone after outpatient surgery. You will not be permitted to have yoursurgery, if you do not have someone to take care of you. Arrival Time for Surgery: - The Surgery Center or hospital where you are having surgery will call the afternoon before surgery (or Thursday for Thursday surgery) with a scheduled arrival time. - If you have not heard by 4 pm, please contact the surgery center above. Please be aware that emergency situations arise, which may delay or change your surgical time. If this happens, we will notify you as soon as possible and regret any inconvenience. If you already have an Advance Directive, please fax a copy to [phone] or email to for it to be added to your chart. If you do not have an Advance Directive, you can find the appropriate form and more information at [email or web address]. We recommend that youcomplete the Advance Directive form found on the website and bring it with you the day of your surgery. It can be witnessed and scanned into your chart that day. Kacy Olivas APRN.CNP documented in this encounterPrem[facility]12-02-[facility] Telephone encounter Note * Telephone Encounter - Tanner Lala PSS - 08/08/2024 2:49 PM EST TOTAL JOINT COMPLETE CARE PROGRAM PRE-OPERATIVE TEACHING Service Date: 08/08/2024 Service Time: 2:50 PM Date of : 1960 Gender: female Date of Surgery: 08/23/24 Procedure: Right Total Knee Replacement Complete Care Program was discussed with the patient: Cma Identification: Patient identified a adult care manager to help when discharged to home: friend, prn but may stay a few days. Lives with roommate who is basically her ex but they aren't together anymore but not . Home Environment: Home Layout: 2 story, Entry Steps: 0, ramp Bedroom Location: 1st floor, Bathroom Location: 1st floor, and stall shower. Pt wants walker from hospital. Discussed with patient importance of attending joint education class and provided date and times ofclass: YES declined. Patient received Joint Education Binder: Yes Patient plans discharge home with [facility]. SIGNATURE: GEORGI Allen PATIENT NAME: Mariam Minaya DATE: August 08, 2024 TIME: 2:50 PM [facility]12-02-[facility]24 Miscellaneous Notes* Telephone Encounter - Tanner Lala PSS - 08/08/2024 2:49 PM EST TOTAL JOINT COMPLETE CARE PROGRAM PRE-OPERATIVE TEACHING Service Date: 08/08/2024 Service Time: 2:50 PM Date of : 1960 Gender: female Date of Surgery: 08/23/24 Procedure: Right Total Knee Replacement Complete Care Program was discussed with the patient: Cma Identification: Patient identified a adult care manager to help when discharged to home: friend, prn but may stay a few days. Lives with roommate who is basically her ex but they aren't together anymore but not . Home Environment: Home Layout: 2 story, Entry Steps: 0, ramp Bedroom Location: 1st floor, Bathroom Location: 1st floor, and stall shower. Pt wants walker from hospital. Discussed with patient importance of attending joint education class and provided date and times ofclass: YES declined. Patient received Joint Education Binder: Yes Patient plans discharge home with [facility]. SIGNATURE: GEORGI Allen PATIENT NAME: Mariam Minaya DATE: August 08, 2024 TIME: 2:50 PM documented in this encounterPrem[facility]11-25-[facility] Telephone encounter Note * Telephone Encounter - Salinas Samuel APRN.CNP - 08/01/2024 10:53 AM EST Approved PDMP website checked and validated. All prescriptions have been APPROPRIATELY filled. No suspiciousactivity was identified. 08/01/2024 by Salinas Samuel APRN.CNP The following approved medication requests have been transmitted electronically. Requested Prescriptions Signed Prescriptions Disp Refills gabapentin (NEURONTIN) 300 mg capsule 90 capsule 2 Sig: Take 1 capsule by mouth three times a day for 90 days. Take with 600 mg of Gabapentin Authorizing Provider: SALINAS SAMUEL phentermine-topiramate ER (QSYMIA) 15-92 mg 24 Hr Capsule 30 capsule 2 Sig: Take 1 capsule by mouth once daily Authorizing Provider: SALINAS SAMUEL APRN.CNP [facility]11-25-2024 Miscellaneous Notes* Telephone Encounter - Salinas Samuel APRN.CNP - 08/01/2024 10:53 AM EST Approved PDMP website checked and validated. All prescriptions have been APPROPRIATELY filled. No suspiciousactivity was identified. 08/01/2024 by Salinas Samuel APRN.CNP The following approved medication requests have been transmitted electronically. Requested Prescriptions Signed Prescriptions Disp Refills gabapentin (NEURONTIN) 300 mg capsule 90 capsule 2 Sig: Take 1 capsule by mouth three times a day for 90 days. Take with 600 mg of Gabapentin Authorizing Provider: SALINAS SAMUEL phentermine-topiramate ER (QSYMIA) 15-92 mg 24 Hr Capsule 30 capsule 2 Sig: Take 1 capsule by mouth once daily Authorizing Provider: SALINAS SAMUEL APRN.BUILDING MAINTENANCE SUPERVISOR * Telephone Encounter - Ladonna Gonzalez - 08/01/2024 10:28 AM EST Prescription Refill Information The patient has been identified by name and date of : Yes Caregiver verified no other encounters exist for this prescription request: Yes Caregiver confirmed with patient/requestor that no other refills are due, in the near future, with this provider at this time: Yes The last office visit in the department: 05/06/24 Does the patient have a future office visit with this provider/department: Yes Requested Prescriptions Pending Prescriptions Disp Refills gabapentin (NEURONTIN) 300 mg capsule 90 capsule 2 Sig: Take 1 capsule by mouth three times a day for 90 days. Take with 600 mg of Gabapentin phentermine-topiramate ER (QSYMIA) 15-92 mg 24 Hr Capsule 30 capsule 2 Sig: Take 1 capsule by mouth once daily [facility] August 01, 2024 10:29 AM documented in this encounterPrem[facility]11-25-2024 Telephone encounter Note * Telephone Encounter - Ladonna Gonzalez - 08/01/2024 10:28 AM EST Prescription Refill Information The patient has been identified by name and date of : Yes Caregiver verified no other encounters exist for this prescription request: Yes Caregiver confirmed with patient/requestor that no other refills are due, in the near future, with this provider at this time: Yes The last office visit in the department: 05/06/24 Does the patient have a future office visit with this provider/department: Yes Requested Prescriptions Pending Prescriptions Disp Refills gabapentin (NEURONTIN) 300 mg capsule 90 capsule 2 Sig: Take 1 capsule by mouth three times a day for 90 days. Take with 600 mg of Gabapentin phentermine-topiramate ER (QSYMIA) 15-92 mg 24 Hr Capsule 30 capsule 2 Sig: Take 1 capsule by mouth once daily [facility] August 01, 2024 10:29 AM [facility]11-22-[facility] History of Present illness Narrative* Kellie James TECHNOLOGIST - 07/29/2024 2:30 PM EST Radiology Service Progress Note PATIENT NAME: Mariam Minaya DATE OF SERVICE: July 29, 2024 TIME: 3:25 PM PATIENT IDENTITY VERIFICATION COMPLETED USING TWO (2) IDENTIFIERS: Name and Date of confirmedby patient verbally and Name and Date of confirmed by identification band. FALL SCREENING: Has the patient had 2 falls in the last year or 1 fall with injury or currently using an Ambulatory Assistive Device (Walker, Cane, Wheelchair, Crutches, etc.)? No PATIENT GENDER DATA: Female. status: : No status: NO. PATIENT RELEVANT IMPLANT DATA REVIEWED: Yes PATIENT PRESENTS WITH AN IMPLANTABLE OR ATTACHED ADMINISTRATIVE SUPPORT ASSISTANT: No RADIOLOGY DEPARTMENT: CT; Exam(s) Completed: Lower extremity right mumtaz knee PERIPHERAL IV DATA: Not applicable SIGNED BY: TECHNOLOGIST Antonio July 29, 2024 3:25 PM documented in this encounterPrem[facility]11-22-2024 NoteHNO ID: [id number] Author: KELLIE JAMES TECHNOLOGIST Service: Radiology Author Type: Technologist Type: Progress Notes Filed: 07/29/2024 15:25 Note Text: Radiology Service Progress Note PATIENT NAME: Mariam Minaya DATE OF SERVICE: July 29, 2024 TIME: 3:25 PM PATIENT IDENTITY VERIFICATION COMPLETED USING TWO (2) IDENTIFIERS: Name and Date of confirmed by patient verbally and Name and Date of confirmed by identification band. FALL SCREENING: Has the patient had 2 falls in the last year or 1 fall with injury or currently using an Ambulatory Assistive Device (Walker, Cane, Wheelchair, Crutches, etc.)? No PATIENT GENDER DATA: Female. status: : No status: NO. PATIENT RELEVANT IMPLANT DATA REVIEWED: Yes PATIENT PRESENTS WITH AN IMPLANTABLE OR ATTACHED ADMINISTRATIVE SUPPORT ASSISTANT: No RADIOLOGY DEPARTMENT: CT; Exam(s) Completed: Lower extremity right mumtaz knee PERIPHERAL IV DATA: Not applicable SIGNED BY: Kellie James, TECHNOLOGIST July 29, 2024 3:25 PMCleveland Clinic [facility] [id number] Telephone encounter Note* Telephone Encounter - Anayeli Ng APRN.CNP - 06/22/2024 3:26 PM EDT The following approved medication requests have been transmitted electronically. Requested Prescriptions Signed Prescriptions Disp Refills amoxicillin-clavulanate potassium (AUGMENTIN) 875-125 mg per tablet 20 tablet 0 Sig: Take 1 tablet by mouth two times a day for 10 days. Authorizing Provider: ANAYELI NG APRN.CNP [facility]10-16-2024 Miscellaneous Notes* Telephone Encounter - Anayeli Ng APRN.CNP - 06/22/2024 3:26 PM EDT The following approved medication requests have been transmitted electronically. Requested Prescriptions Signed Prescriptions Disp Refills amoxicillin-clavulanate potassium (AUGMENTIN) 875-125 mg per tablet 20 tablet 0 Sig: Take 1 tablet by mouth two times a day for 10 days. Authorizing Provider: ANAYELI NG APRN.CNP * Telephone Encounter - Jaki Duff LPN - 06/22/2024 1:44 PM EDT Phoned patient and went over notes below from A Zarina CLERICAL ADMINISTRATOR with understanding. Patient uses [facility] for her pharmacy. * Telephone Encounter - Anayeli Ng APRN.CNP - 06/22/2024 1:31 PM EDT Can you please call the patient back and let her know that I am happy to treat her for sinusitis/sinus infection. If symptoms do not improve after treatment then I would recommend seeing an ENT. I would recommend starting Augmentin. If she is agreeable please verify pharmacy. Thank you. Anayeli Ng APRN.BUILDING MAINTENANCE SUPERVISOR * Telephone Encounter - Alejo Mccabe RN - 06/20/2024 4:44 PM EDT Pt returned call and given provider's message below with verbalized understanding. Patient agreeable to see neuro in [place]. Patient reports she has had a clear runny nose for about 4 months. Reports it's constant. Reports she takes mucinex, which helps, but doesn't think she should take mucinex every day. Reports she getssinus pain b/t the eyes off and on, and does get teeth pain- not sure if it's her teeth, her ear, or her jaw- she cannot tell. Please advise patient. * Telephone Encounter - Rae Sheth MA - 06/17/2024 8:43 AM EDT hint message sent to pt, asking them to call back for results. Rae Sheth MA * Telephone Encounter - Kinjal Ramos LPN - 06/16/2024 12:08 PM EDT VM left for patient to return call to review provider's message. Kinjal Ramos LPN * Telephone Encounter - Anayeli Ng APRN.PENNY - 06/15/2024 7:24 PM EDT Can you please call the patient back and let her know that we have a neurologist here at the [facility]. There are specialist at [facility] that specializes in memory as well. However if she is not wanting to travel that far north I would recommend starting here at the [place] location. In regards to the chronic sinusitis noted on MRI, if she is symptomatic we can treat this with antibiotics however I would recommend a consult with ear nose and throat for further evaluation. Please let me know if she is having any thick nasal discharge, facial pain/pressure, or teeth pain. Thank you. Anayeli Ng APRN.CNP * Telephone Encounter - Jaki Duff LPN - 06/15/2024 10:31 AM EDT Phoned patient and went over notes below from A Zarina CLERICAL ADMINISTRATOR. Patient asking if there is a certain Neurologist CLERICAL ADMINISTRATOR wants her to see? Patient asking about the chronic sinus infection, does she need antibiotic rx or referral to see someone for that issue? right now her nose is constantly running. * Telephone Encounter - Anayeli Ng APRN.CNP - 06/15/2024 9:58 AM EDT With her ongoing symptoms I would recommend a consult with neurology. Consult has been placed, she may schedule this anytime. Anayeli Ng APRN.CNP * Telephone Encounter - Jaki Duff LPN - 06/15/2024 9:43 AM EDT Phoned patient and went over results, notes from A [facility] CLERICAL ADMINISTRATOR with some questions. Patient is asking if possible that she has MS? Patient said her dizziness is gone. She is having some memory issues, has 14 dogs that she rescued and can not remember a dogs name at times, she is stressed with the pain she is having and her knee surgery, etc. She is not sure if she should give it some time or do the referral to Neurology? * Telephone Encounter - Anayeli Ng APRN.CNP - 06/15/2024 7:20 AM EDT Can you please call the patient and let her know that I reviewed her MRI brain. MRI showed signs of chronic sinus infection. As well as some white matter lesions which may represent chronic microvascular ischemic changes, demyelinating disease, or chronic migraine headaches/vasculopathy. No other abnormalities noted. Can you please ask how she has been feeling since her Synthroid was adjusted? If she still having ongoing dizziness? Any memory difficulty. If symptoms are still lingering I would recommend that she have a consult with neurology. Anayeli Ng APRN.CNP documented in this encounterPrem[facility]10-16-2024 Telephone encounter Note * Telephone Encounter - Jaki Duff LPN - 06/22/2024 1:44 PM EDT Phoned patient and went over notes below from A Zarina CLERICAL ADMINISTRATOR with understanding. Patient uses [place] for her pharmacy. [facility]10-16-2024 Telephone encounter Note* Telephone Encounter - Anayeli Ng APRN.CNP - 06/22/2024 1:31 PM EDT Can you please call the patient back and let her know that I am happy to treat her for sinusitis/sinus infection. If symptoms do not improve after treatment then I would recommend seeing an ENT. I would recommend starting Augmentin. If she is agreeable please verify pharmacy. Thank you. Anayeli Ng APRN.PENNY [facility]10-14-2024 Telephone encounter Note* Telephone Encounter - Alejo Mccabe RN - 06/20/2024 4:44 PM EDT Pt returned call and given provider's message below with verbalized understanding. Patient agreeable to see neuro in [place]. Patient reports she has had a clear runny nose for about 4 months. Reports it's constant. Reports she takes mucinex, which helps, but doesn't think she should take mucinex every day. Reports she getssinus pain b/t the eyes off and on, and does get teeth pain- not sure if it's her teeth, her ear, or her jaw- she cannot tell. Please advise patient. [facility]10-11-2024 Telephone encounter Note* Telephone Encounter - Rae Sheth MA - 06/17/2024 8:43 AM EDT hint message sent to pt, asking them to call back for results. Rae Sheth MA [facility]10-10-2024 Telephone encounter Note* Telephone Encounter - Kinjal Ramos LPN - 06/16/2024 12:08 PM EDT VM left for patient to return call to review provider's message. Kinjal Ramos LPN [facility]10-09-2024 Telephone encounter Note* Telephone Encounter - Anayeli Ng APRN.BUILDING MAINTENANCE SUPERVISOR - 06/15/2024 7:24 PM EDT Can you please call the patient back and let her know that we have a neurologist here at the [facility]. There are specialist at [facility] that specializes in memory as well. However if she is not wanting to travel that far north I would recommend starting here at the [place] location. In regards to the chronic sinusitis noted on MRI, if she is symptomatic we can treat this with antibiotics however I would recommend a consult with ear nose and throat for further evaluation. Please let me know if she is having any thick nasal discharge, facial pain/pressure, or teeth pain. Thank you. Anayeli Ng APRN.CNP [facility]10-09-2024 Telephone encounter Note* Telephone Encounter - Jaki Duff LPN - 06/15/2024 10:31 AM EDT Phoned patient and went over notes below from A Zarina CLERICAL ADMINISTRATOR. Patient asking if there is a certain Neurologist CLERICAL ADMINISTRATOR wants her to see? Patient asking about the chronic sinus infection, does she need antibiotic rx or referral to see someone for that issue? right now her nose is constantly running. [facility]10-09-2024 Telephone encounter Note* Telephone Encounter - Anayeli Ng APRN.CNP - 06/15/2024 9:58 AM EDT With her ongoing symptoms I would recommend a consult with neurology. Consult has been placed, she may schedule this anytime. Anayeli Ng APRN.CNP T [facility]10-09-2024 Telephone encounter Note* Telephone Encounter - Jaki Duff LPN - 06/15/2024 9:43 AM EDT Phoned patient and went over results, notes from A Zarina CLERICAL ADMINISTRATOR with some questions. Patient is asking if possible that she has MS? Patient said her dizziness is gone. She is having some memory issues, has 14 dogs that she rescued and can not remember a dogs name at times, she is stressed with the pain she is having and her knee surgery, etc. She is not sure if she should give it some time or do the referral to Neurology? [facility] Telephone encounter Note* Telephone Encounter - Anayeli Ng APRN.CNP - 06/15/2024 7:20 AM EDT Can you please call the patient and let her know that I reviewed her MRI brain. MRI showed signs of chronic sinus infection. As well as some white matter lesions which may represent chronic microvascular ischemic changes, demyelinating disease, or chronic migraine headaches/vasculopathy. No other abnormalities noted. Can you please ask how she has been feeling since her Synthroid was adjusted? If she still having ongoing dizziness? Any memory difficulty. If symptoms are still lingering I would recommend that she have a consult with neurology. Anayeli Ng APRN.CNP [facility]10-03-2024 NoteC[facility]10-03-2024 History of Present illness Narrative* Gayle Rand RN - 06/09/2024 3:00 PM EDT Radiology Service Progress Note DATE OF SERVICE: June 09, 2024 TIME: 2:56 PM PATIENT WEIGHT: 156 LBS PATIENT IDENTITY VERIFICATION COMPLETED USING TWO (2) STANDARD IDENTIFIERS: Name and Date of confirmed by patient verbally. FALL SCREENING: Has the patient had 2 falls in the last year or 1 fall with injury or currently using an Ambulatory Assistive Device (Walker, Cane, Wheelchair, Crutches, etc.)? No PATIENT GENDER DATA: Female. status: : No status: NO. ALLERGIES: Reviewed and unchanged CONTRAST ALLERGY: No EXAM: MRI - CONTRAST TYPE: GROUP II IV SITE: Ambulatory: A peripheral IV was started in the Left antecubital site with a Angio cath: 22gauge. and A Saline lock was inserted per protocol IV SITE APPEARANCE: Clean,Dry and Intact SIGNATURE: Gayle Rand RN PATIENT NAME: Mariam Minaya DATE: June 09, 2024 TIME: 2:56 PM * Jessika Witt, RT(R) - 06/09/2024 3:00 PM EDT Radiology Service Progress Note PATIENT NAME: Mariam Minaya DATE OF SERVICE: June 09, 2024 TIME: 3:07 PM PATIENT IDENTITY VERIFICATION COMPLETED USING TWO (2) IDENTIFIERS: Name and Date of confirmedby patient verbally and Name and Date of confirmed by identification band. FALL SCREENING: Has the patient had 2 falls in the last year or 1 fall with injury or currently using an Ambulatory Assistive Device (Walker, Cane, Wheelchair, Crutches, etc.)? No PATIENT GENDER DATA: Female. status: : No status: NO. PATIENT RELEVANT IMPLANT DATA REVIEWED: Not Applicable PATIENT PRESENTS WITH AN IMPLANTABLE OR ATTACHED ADMINISTRATIVE SUPPORT ASSISTANT: No RADIOLOGY DEPARTMENT: MR; Exam(s) Completed: Head: Multiple Sclerosis PERIPHERAL IV DATA: Not applicable SIGNED BY: RT Naldo(R) June 09, 2024 3:07 PM documented in this encounterPrem[facility]10-03-2024 NoteC[facility]10-03-2024 NoteC[facility]09-28-2024 History of Present illness Narrative* Laura Robertson MD - 06/04/2024 10:40 AM EDT Chief Complaint No chief complaint on file. HPI Mariam Minaya is a 63 year old female who presents here today for an acute visit. Pt here today with c/o warts on her hands. Four small warts on right index finger. She tried OTC Compound W without success. Past medical history, appointments, medications, allergies reviewed. Previous Medical History PAST MEDICAL HISTORY Diagnosis Date Astigmatism, regular 12/22/2015 Chronic bilateral low back pain with sciatica 12/10/2015 Chronic kidney insufficiency, stage 3 (moderate) (HCC) 04/06/2018 Encounter for gynecological examination 05/03/[facility]. 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 RA (rheumatoid arthritis) (HCC) + RF, +CCP OVERLAP PsA (+NAIL disease, dactylitis, axial inflammatory sx) Sjogren's syndrome (HCC) Neg SSA SSB in January 2009 Thyroid cancer (HCC) 09/07/[address] Maldonado removed, radioactive iodine ablation. papillary Vitamin D deficiency Previous Surgical History PAST SURGICAL HISTORY Procedure Laterality Date BREAST AUGMENTATION W/PROSTHETIC IMPLANT 2000 bilateral implants BX BREAST PERC NEED W/GUID 10/29/11 U/S needle core left axillary LN COLONOSCOPY FLX DX W/COLLJ SPEC WHEN PFRMD 09/07/2010 Colonoscopy, repeat 10 yrs EGD TRANSORAL BIOPSY SINGLE/MULTIPLE 11/06/06 Hiatal hernia, gastritis, retained food ESOPHAGOGASTRODUODENOSCOPY TRANSORAL DIAGNOSTIC EGD ESOPHAGOGASTRODUODENOSCOPY TRANSORAL DIAGNOSTIC 03/15/2015 EGD FNA (FINE NEEDLE ASPIRATION) 10/15/06 U/S FNA right thyroid nodule FNA WITH IMAGING 09/22/11 U/S FNA left axillary mass KNEE ARTHROSCOPY Left 2009 LIG/TRNSXJ FLP TUBE ABDL/VAG APPR UNI/BI Tubal ligation NEUROPLASTY &/TRANSPOS MEDIAN NRV CARPAL TUNNE Left 05/30/16 Carpal tunnel decomp NEUROPLASTY &/TRANSPOS MEDIAN NRV CARPAL TUNNE Right 09/26/2016 Carpal tunnel decomp PAST SURGICAL HISTORY OF 2010 removal of implants & replace & pannilectomy SYNOVECTOMY EACH 1999 left wrist THYROIDECTOMY TOTAL/COMPLETE 11/10/06 TONSILLECTOMY & ADENOIDECTOMY <AGE 12 Tonsillectomy VAGINAL HYSTERECTOMY UTERUS 250 GM/< 2004 Hysterectomy, vaginal Family History FAMILY HISTORY Problem Relation Age of Onset Cancer Father None Mother Diabetes Brother from type I dx/d age 9 Breast Cancer Sister Thyroid Sister cancer Diabetes Grandchild Type I age 8 Patient Allergies ALLERGIES Allergen Reactions Flovent [Fluticason* Rash Amicar [Aminocaproi* Rash Humira [Adalimumab] Hives welt at injection site Tessalon [Benzonata* Other: See Comments hypersensitive Albuterol Other: See Comments severe leg cramps Methotrexate Contraindication-Medical Surgical elevated liver enz Current Medications Current Outpatient Medications on File Prior to Visit Medication Sig phentermine-topiramate ER (QSYMIA) 15-92 mg 24 Hr Capsule Take 1 capsule by mouth once daily triamcinolone (KENALOG) 0.025 % cream Apply to affected area two times a day. gabapentin (NEURONTIN) 300 mg capsule Take 1 capsule by mouth three times a day for 90 days. Take with 600 mg of Gabapentin ascorbic acid (VITAMIN C ORAL) Take by mouth once daily. gabapentin (NEURONTIN) 600 mg tablet Take 1 tablet by mouth three times a day for 180 days. levothyroxine (SYNTHROID) 125 mcg tablet Take 1 tablet by mouth once daily. Take on empty stomach. For Thyroid hydrOXYchloroQUINE (PLAQUENIL) 200 mg tablet Take 1 and a half tablets by mouth once daily. Cholecalciferol, Vitamin D3, 50 mcg (2,000 unit) cap Take 1 capsule by mouth twice daily. polyethylene glycol 3350 (MIRALAX) 17 gram/dose powder 17gm in 8oz daily until stools regular (for constipation) vitamin b complex tab Take 1 tablet by mouth once daily. No current facility-administered medications on file prior to visit. Social History Social History Tobacco Use Smoking status: Never Smokeless tobacco: Never Vaping Use Vaping status: Never Used Substance Use Topics Alcohol use: No Comment: rare ; deo. wine Drug use: No EXAM: There were no vitals taken for this visit. General Appearance: Well appearing, alert, in no acute distress, well-hydrated, well nourished.. Skin: Four small 2-3 mm warts on right index finger, all treated with cryo times two; tolerated well. Health Maintenance List Covid-19 Vaccine(1) Never done HIV Screening Never done Shingrix Vaccine(1 of 2) Never done Pneumococcal Vaccine(2 of 2 - PCV) due on 08/09/2012 RSV Vaccine(1 - Risk 60-74 years 1-dose series) Never done Colorectal Cancer Screening due on 09/07/2020 Mammogram Screening due on 12/17/2021 Lipid Screening due on 05/03/2024 Influenza Vaccine(1) due on 05/08/2024 DTaP,Tdap,Td Vaccine(2 - Td or Tdap) due on 12/31/2024 Serum Creatinine due on 05/17/2025 Annual PCP Team Chronic Disease Visit due on 05/26/2025 Depression Screening due on 05/26/2025 Anxiety Screening due on 05/26/2025 Diabetes Screening due on 03/04/2026 Hepatitis C Screening Completed HPV Vaccine Aged Out Cervical Cancer Screening Discontinued Data reviewed none ASSESSMENT/PLAN: 1. Viral warts, unspecified type - ICD9: 078.10, ICD10: B07.9 Treated with cryo; instructed in wound care, follow up if not improved in 2-3 weeks for retreatment Medical Decision Making: Problems: Low: Acute, uncomplicated illness or injury Risk: Low: Low risk from testing/treatment Medical Decision Making Level: 3 - Low Laura Robertson MD documented in this encounterPrem[facility] Health [facility]09-28-2024 NoteC[facility]09-19-2024 Instructions* Patient Instructions* Anayeli Ng APRN.CNP - 05/26/2024 8:18 AM EDT Complete MRI as soon as possible, worsening symptoms go to ER Decrease Synthroid 112 mcg daily Get repeat thyroid labs in 6-8 weeks Stay well hydrated Check with insurance about zio monitor coverage Consult placed for endocrinology, may see Dr. Hayes at [facility]. Start steroid ointment to rash, twice daily for the next 10-14 days. Consult placed for dermatologyif needed. Follow up pending test results or sooner as needed. documented in this encounterPremier Health [facility]09-19-2024 History of Present illness Narrative* Anayeli Ng APRN.CNP - 05/26/2024 8:00 AM EDT This is a 63 year old female who presents today with: Patient presents with: Follow Up: ER follow up for dizzy HISTORY OF PRESENT ILLNESS: Mariam Minaya is a 63 year old female. Patient presents with: Follow Up: ER follow up for dizzy HOSPITAL/ER FOLLOW UP: Reason for visit: Dizziness and near fainting. Which facility: [facility] ER Date of visit: 05/23/2024 Diagnosis: Dizziness of unknown etiology Testing done: CBC and CMP relatively normal. TSH was low at 0.046. CT brain showed no acute intracranial abnormality. EKG showed normal sinus rhythm. Orthostatic vital signs normal. Walked in the hallway in the ER, no difficulty ambulating. Treatment given: Offered to admit and get MRI, patient denied wanting to stay in the hospital. Current symptoms: Symptoms started last , increased dizziness, sweating, cold intolerance, and small amount of diarrhea. Some increased anxiety. Episodes of dizziness seems to be random. Feels like she will black out. Staying well hydrated. No palpitations or chest pain. History of thyroid cancer. Taking Synthroid 125 mcg daily. Rash on left leg, on going for 6 months. Has been applying jock itch cream. Itchy when applying cream. No Seeping. PAST MEDICAL HISTORY: PAST MEDICAL HISTORY Diagnosis Date Astigmatism, regular 12/22/2015 Chronic bilateral low back pain with sciatica 12/10/2015 Chronic kidney insufficiency, stage 3 (moderate) (HCC) 04/06/2018 Encounter for gynecological examination 05/03/2019 [facility]. 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 RA (rheumatoid arthritis) (HCC) + RF, +CCP OVERLAP PsA (+NAIL disease, dactylitis, axial inflammatory sx) Sjogren's syndrome (HCC) Neg SSA SSB in January 2009 Thyroid cancer (HCC) 09/07/[address] Maldonado removed, radioactive iodine ablation. papillary Vitamin D deficiency PAST SURGICAL HISTORY Procedure Laterality Date BREAST AUGMENTATION W/PROSTHETIC IMPLANT 2000 bilateral implants BX BREAST PERC NEED W/GUID 10/29/11 U/S needle core left axillary LN COLONOSCOPY FLX DX W/COLLJ SPEC WHEN PFRMD 09/07/2010 Colonoscopy, repeat 10 yrs EGD TRANSORAL BIOPSY SINGLE/MULTIPLE 11/06/06 Hiatal hernia, gastritis, retained food ESOPHAGOGASTRODUODENOSCOPY TRANSORAL DIAGNOSTIC EGD ESOPHAGOGASTRODUODENOSCOPY TRANSORAL DIAGNOSTIC 03/15/2015 EGD FNA (FINE NEEDLE ASPIRATION) 10/15/06 U/S FNA right thyroid nodule FNA WITH IMAGING 09/22/11 U/S FNA left axillary mass KNEE ARTHROSCOPY Left 2009 LIG/TRNSXJ FLP TUBE ABDL/VAG APPR UNI/BI Tubal ligation NEUROPLASTY &/TRANSPOS MEDIAN NRV CARPAL TUNNE Left 05/30/16 Carpal tunnel decomp NEUROPLASTY &/TRANSPOS MEDIAN NRV CARPAL TUNNE Right 09/26/2016 Carpal tunnel decomp PAST SURGICAL HISTORY OF 2010 removal of implants & replace & pannilectomy SYNOVECTOMY EACH 1999 left wrist THYROIDECTOMY TOTAL/COMPLETE 11/10/06 TONSILLECTOMY & ADENOIDECTOMY <AGE 12 Tonsillectomy VAGINAL HYSTERECTOMY UTERUS 250 GM/< 2003 Hysterectomy, vaginal ALLERGIES Flovent [Fluticasone], Amicar [Aminocaproic Acid], Humira [Adalimumab], Tessalon [Benzonatate], Albuterol, and Methotrexate MEDICATIONS Current Outpatient Medications Medication Sig hydrOXYchloroQUINE (PLAQUENIL) 200 mg tablet Take 1 and a half tablets by mouth once daily. phentermine-topiramate ER (QSYMIA) 15-92 mg 24 Hr Capsule Take 1 capsule by mouth once daily triamcinolone (KENALOG) 0.025 % cream Apply to affected area two times a day. gabapentin (NEURONTIN) 300 mg capsule Take 1 capsule by mouth three times a day for 90 days. Take with 600 mg of Gabapentin ascorbic acid (VITAMIN C ORAL) Take by mouth once daily. gabapentin (NEURONTIN) 600 mg tablet Take 1 tablet by mouth three times a day for 180 days. levothyroxine (SYNTHROID) 125 mcg tablet Take 1 tablet by mouth once daily. Take on empty stomach. For Thyroid Cholecalciferol, Vitamin D3, 50 mcg (2,000 unit) cap Take 1 capsule by mouth twice daily. polyethylene glycol 3350 (MIRALAX) 17 gram/dose powder 17gm in 8oz daily until stools regular (for constipation) vitamin b complex tab Take 1 tablet by mouth once daily. No current facility-administered medications for this visit. FAMILY HISTORY Problem Relation Age of Onset Cancer Father None Mother Diabetes Brother from type I dx/d age 9 Breast Cancer Sister Thyroid Sister cancer Diabetes Grandchild Type I age 8 Social History Tobacco Use Smoking status: Never Smokeless tobacco: Never Vaping Use Vaping status: Never Used Substance Use Topics Alcohol use: No Comment: rare ; deo. wine Drug use: No REVIEW OF SYSTEMS GENERAL: No weight loss, malaise or fevers/chills HEENT: Negative for frequent or significant headaches, No changes in hearing or vision. NECK: Negative for lumps, goiter, pain and significant neck swelling RESPIRATORY: Negative for cough, hemoptysis, wheezing, dyspnea or shortness of breath CARDIOVASCULAR: Negative for chest pain, leg swelling, orthopnea, or palpitations GI: No nausea, vomiting, or diarrhea/constipation. No hematochezia/melena. No heartburn or reflux symptoms. : No history of dysuria, frequency or incontinence MUSCULOSKELETAL: Negative for joint pain or swelling. SKIN: Negative for lesions, rash, and itching ENDOCRINE: Negative for cold or heat intolerance, polyuria, polydipsia and goiter NEURO: + Dizziness, diaphoretic, cold intolerance MOOD: Negative for depression, anxiety, or suicidal ideation. EXAM: BP 115/74 Pulse 91 Resp 16 Wt 70.1 kg (154 lb 8.7 oz) SpO2 99% BMI 25.33 kg/m PHYSICAL EXAM: General Appearance: Well appearing, alert, in no acute distress, well-hydrated, well nourished. Skin: + Erythematic dry circular dry patches noted to left lower leg, nontender, no crusting or seeping. Head: Normocephalic, no masses, lesions, tenderness or abnormalities. Eyes: Anicteric sclera. Pupils are equally round and reactive to light. Extraocular movements are intact. Ears: External ears normal, canals clear. TMs pearly saldana. Lungs: Lungs clear to auscultation. No wheezing, rhonchi, rales. Heart: RRR without murmur, gallop, or rubs. No ectopy. Extremities: No deformities, edema, skin discoloration, clubbing or cyanosis. Good capillary refill. Peripheral Pulses: Normal, Capillary refill <2secs, strong peripheral pulses, Pulses palpable. Neurologic: Gait normal. Reflexes normal and symmetric. Sensation grossly intact., Negative findings: speech normal, mental status intact, cranial nerves 2-12 intact, muscle tone normal, muscle strength normal, sensation to light touch and pinprick normal, Positive findings: Dizziness brought on with cardinal gaze test, no nystagmus. ASSESSMENT/PLAN: 1. Hospital discharge follow-up - ICD9: V67.59, ICD10: Z09 (primary diagnosis) - Still having on going symptoms since discharge 2. Syncope, unspecified syncope type - ICD9: 780.2, ICD10: R55 - Get MRI completed as soon as possible. - Cardiac work up so far has been normal, will check with insurance about zio monitor coverage. - TSH is low which could be causing symptoms as well. - Decreased Synthroid 112 mcg, will get repeat thyroid labs in 6 to 8 weeks. - Instructed to stay well-hydrated and be mindful with position changes. - Any worsening symptoms instructed to go to ER. - MRI BRAIN WO/W IVCON - IV CONTRAST (RADIOLOGY PROCEDURE) 3. Hypothyroidism, acquired - ICD9: 244.9, ICD10: E03.9 - CONSULT TO ENDOCRINOLOGY - THYROID STIMULATING HORMONE - T4 FREE/FREE THYROXINE - LEVOTHYROXINE 112 MCG TABLET 4. Thyroid cancer (HCC) - ICD9: 193, ICD10: C73 - CONSULT TO ENDOCRINOLOGY 5. Contact dermatitis, unspecified contact dermatitis type, unspecified trigger - ICD9: 692.9, ICD10: L25.9 - Topical steriod tx with Rx for steriod cream/ointment- see orders - discussed skin care of rash - follow up if symptoms persist or worsen. - CONSULT TO DERMATOLOGY - TRIAMCINOLONE ACETONIDE 0.1 % TOPICAL OINTMENT 6. Sciatica, right side - ICD9: 724.3, ICD10: M54.31 - Stable, refill provided. - GABAPENTIN 600 MG TABLET 7. Screening for depression - ICD9: V79.0, ICD10: Z13.31 - DEPRESSION SCREENING 8. Encounter for screening examination for other mental health and behavioral disorders - ICD9: V79.8, ICD10: Z13.39 - ANXIETY SCREENING Follow-up pending test results or sooner as needed. Discussed treatment plan and patient voices understanding. Patient's questions answered appropriately. Medications and potential side effects were discussed and patient voices understanding. Anayeli Ng APRN.BUILDING MAINTENANCE SUPERVISOR This note was partially generated using LivQuik recognition system. Note was reviewed for accuracy. There may be minor misspellings or grammar miscues with Appinions voice recognition. documented in this encounterPremier Health [facility]09-19-2024 NoteC[facility]09-17-2024 Telephone encounter Note* Telephone Encounter - Alejo Mccabe RN - 05/24/2024 4:29 PM EDT Patient reports she was seen in yesterday, who sent her to [facility] ER, for c/o dizziness, headache, feeling like will pass out. ER did CT and EKG, both negative. Labs showed no dehydration. BP 137/82.ER found no cause and told her she could stay the night and get an MRI today, but patient declined.Reports she still feels like she will pass out. Hx thyroid cancer. Reports she is having knee surgery in [facility], and the provider has taken her off of all of her arthritis medication, states she can only take gabapentin and plaquenil. Schedule ER f/u appt for Thurs. [facility]09-17-2024 Miscellaneous Notes* Telephone Encounter - Alejo Mccabe RN - 05/24/2024 4:29 PM EDT Patient reports she was seen in yesterday, who sent her to [facility] ER, for c/o dizziness, headache, feeling like will pass out. ER did CT and EKG, both negative. Labs showed no dehydration. BP 137/82.ER found no cause and told her she could stay the night and get an MRI today, but patient declined.Reports she still feels like she will pass out. Hx thyroid cancer. Reports she is having knee surgery in [facility], and the provider has taken her off of all of her arthritis medication, states she can only take gabapentin and plaquenil. Schedule ER f/u appt for Thurs. documented in this encounterPremier Health [facility]09-16-2024 NoteC[facility]09-16-2024 History of Present illness Narrative* Quirino Grover APRN.PENNY - 05/23/2024 4:31 PM EDT Patient presents today complaining of 4 days of dizziness. She states that she is dizzy even while laying down. Dizziness does not seem to be resolved with rest. She also complains of a mild headachewhich she states is not atypical. She notes that she has been having diarrhea but states she has only had 1 episode today. On evaluation patient did not appear to be feeling well however she was in no acute distress. I discussed with her my concerns for unprovoked dizziness and possible posterior stroke and recommended that she be evaluated at the emergency department. With assistance patient wasable to ambulate back to the waiting room where her assisted her to the car. Patient was transported here by her who will drive her across the street to the emergency department. documented in this encounterPremier Health [facility]09-10-2024 Note* Addendum Note - Michelle Simpson APRN.CNP - 05/17/2024 3:01 PM EDTAddended by: MICHELLE SIMPSON on: 05/17/2024 03:01 PM Modules accepted: Orders [facility]09-10-2024 Miscellaneous Notes* Addendum Note - Michelle Simpson APRN.CNP - 05/17/2024 3:01 PM EDTAddended by: MICHELLE SIMPSON on: 05/17/2024 03:01 PM Modules accepted: Orders documented in this encounterPremier Health [facility] Center09-10-2024 History of Present illness Narrative* Michelle Simpson APRN.CNP - 05/17/2024 1:30 PM EDT Follow-up of seropositive RA HPI: To review, Mariam Minaya is a 63 year old female - Several years ago, diagnosed with RA by Dr. Pino Noble. Initially treated with HCQ 200mg bid and MTX 17.5mg PO weekly/FA (SSZ stopped for low WBC). MTX eventually stopped for high LFTs (and also had blood in urine while on MTX) - Humira with a significant injection site reaction - Later on HCQ 200mg/day and enbrel for several years. - In February 24, on HCQ 200mg bid and orencia - In Aug, reported feeling poorly with increased pain and swelling wrists, MCPs, PIPs, and DIPs. 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 Orencia switched to enbrel - In Apr, reported 40% improvement with enbrel - In Oct, reported not doing well. Had 75% improvement s/p Aug steroid course. Enbrel switched to simponi - In February, reported 5% improvement of joints with simponi - In Jun, reported not feeling as well as she'd wanted with simponi. Had needed pred in February, March and May with significant relief each time on pred. Advised to stop simponi, start actemra - In Aug, started reclast (08/08/22) with rxn (pain, vomiting, sweating). She had to go to the hospital for the severe pain, lasted 2 days and resolved after morphine/pain meds that she was given.Wasn't sure she wanted to continue. - In November, reported minimal 2% improvement in joints with actemra (had 45- 50% improvement withprior pred). Switched to rituxan - In January, s/p rituxan cycle 1 - In Feb, reported 35% improvement in joints with rituxan - Jun rituxan postponed for infection - at [facility], reports infection has pretty much cleared. To get rituxan later this month. Not on HCQ asssunitha was told she needed the eye exam which she had done in Jun. Last dose before Feb. - No interim fracture, jaw pain or recent/plans for any invasive dental procedures. - Last plaquenil eye exam normal in Jun PAST MEDICAL HISTORY 12/22/2015: Astigmatism, regular 12/10/2015: Chronic bilateral low back pain with sciatica 04/06/2018: Chronic kidney insufficiency, stage 3 (moderate) ([facility]) 05/03/2019: Encounter for gynecological examination Comment: [facility]. 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 No date: RA (rheumatoid arthritis) ([facility]) Comment: + RF, +CCP OVERLAP PsA (+NAIL disease, dactylitis, axial inflammatory sx) No date: Sjogren's syndrome ([facility]) Comment: Neg SSA SSB in January 2009 09/07/2004: Thyroid cancer ([facility]) Comment: Seeing Dr. Joel de los santos, radioactive iodine ablation. papillary No date: Vitamin D deficiency PAST SURGICAL HISTORY 2000: BREAST AUGMENTATION W/PROSTHETIC IMPLANT Comment: bilateral implants 10/29/11: BX BREAST PERC NEED W/GUID Comment: U/S needle core left axillary LN 09/07/2010: COLONOSCOPY FLX DX W/COLLJ SPEC WHEN PFRMD Comment: Colonoscopy, repeat 10 yrs 11/06/06: EGD TRANSORAL BIOPSY SINGLE/MULTIPLE Comment: Hiatal hernia, gastritis, retained food No date: ESOPHAGOGASTRODUODENOSCOPY TRANSORAL DIAGNOSTIC Comment: EGD 03/15/2015: ESOPHAGOGASTRODUODENOSCOPY TRANSORAL DIAGNOSTIC Comment: EGD 10/15/06: FNA (FINE NEEDLE ASPIRATION) Comment: U/S FNA right thyroid nodule 09/22/11: FNA WITH IMAGING Comment: U/S FNA left axillary mass 2010: KNEE ARTHROSCOPY; Left No date: LIG/TRNSXJ FLP TUBE ABDL/VAG APPR UNI/BI Comment: Tubal ligation 05/30/16: NEUROPLASTY &/TRANSPOS MEDIAN NRV CARPAL TUNNE; Left Comment: Carpal tunnel decomp 09/26/2016: NEUROPLASTY &/TRANSPOS MEDIAN NRV CARPAL TUNNE; Right Comment: Carpal tunnel decomp 2011: PAST SURGICAL HISTORY OF Comment: removal of implants & replace & pannilectomy 2000: SYNOVECTOMY EACH Comment: left wrist 11/10/06: THYROIDECTOMY TOTAL/COMPLETE No date: TONSILLECTOMY & ADENOIDECTOMY <AGE 12 Comment: Tonsillectomy 2004: VAGINAL HYSTERECTOMY UTERUS 250 GM/< Comment: Hysterectomy, vaginal ALLERGIES Allergen Reactions Flovent [Fluticason* Rash Amicar [Aminocaproi* Rash Humira [Adalimumab] Hives welt at injection site Tessalon [Benzonata* Other: See Comments hypersensitive Albuterol Other: See Comments severe leg cramps Methotrexate Contraindication-Medical Surgical elevated liver enz INTERVAL HISTORY She is here for follow up. She reports increased b/l knee pain. She is scheduled to have a R TKR 08/23/2024. She is planning to have a L TKR 6 months after that. She states ortho wants her to remain off ruxience and steroids until after the second knee replacement. Last ruxience series was in 01/2024, which she tolerated well. She received reclast 08/20/2024, which she tolerated well. She fell this morning. No fractures since [place]. No invasive dental work in the last three months and none planned. Last dental exam was a year ago. No jaw or thigh pain. Sites of pain: b/l knees, shoulders, pain rated 5-6/10 Joint swelling: hands EMS: yes, lasting 2 hours No recent infections. Tolerating meds. Answers submitted by the patient for this visit: Review of Systems Rheumatology (Submitted on 05/16/2024) Fever : No Recent unintentional weight change: No Eye pain: No Eye redness: No Vision Disturbance: No Eye Dryness: No Nosebleeds: No Trouble Swallowing: No Dry Mouth: Yes Chest pain: No Leg Swelling: Yes A cough: No Shortness of breath: No Pain with breathing: No Heartburn: No Abdominal pain: No Diarrhea: No Black tarry stools: No Blood in urine: No Pain or burning with urination: No Joint pain or stiffness: Yes Muscle weakness: Yes Muscle aches: Yes Joint swelling: Yes Morning Stiffness in Joints: Yes A rash: No Skin Color Changes: No Hair Loss: Yes Nail Changes: Yes Headaches: No Numbness: Yes Memory Loss: No Swollen Glands: No Current Outpatient Medications Medication Sig phentermine-topiramate ER (QSYMIA) 15-92 mg 24 Hr Capsule Take 1 capsule by mouth once daily triamcinolone (KENALOG) 0.025 % cream Apply to affected area two times a day. gabapentin (NEURONTIN) 300 mg capsule Take 1 capsule by mouth three times a day for 90 days. Take with 600 mg of Gabapentin ascorbic acid (VITAMIN C ORAL) Take by mouth once daily. gabapentin (NEURONTIN) 600 mg tablet Take 1 tablet by mouth three times a day for 180 days. levothyroxine (SYNTHROID) 125 mcg tablet Take 1 tablet by mouth once daily. Take on empty stomach. For Thyroid hydrOXYchloroQUINE (PLAQUENIL) 200 mg tablet Take 1 and a half tablets by mouth once daily. Cholecalciferol, Vitamin D3, 50 mcg (2,000 unit) cap Take 1 capsule by mouth twice daily. polyethylene glycol 3350 (MIRALAX) 17 gram/dose powder 17gm in 8oz daily until stools regular (for constipation) vitamin b complex tab Take 1 tablet by mouth once daily. No current facility-administered medications for this visit. FAMILY HISTORY Problem Relation Age of Onset Cancer Father None Mother Diabetes Brother from type I dx/d age 9 Breast Cancer Sister Thyroid Sister cancer Diabetes Grandchild Type I age 8 SOCIAL HISTORY: Lives in [place] with . 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 SKIN: + erythematous rash to L lower extremity EYES: No scleral icterus or conjunctivitis ENT and Mouth: External ears normal. Oral exam normal. RESPIRATORY: Normal breath sounds, clear to auscultation. CARDIOVASCULAR: Regular rate and rhythm, no murmurs or rubs EXTREMITIES/LYMPH: No edema bilaterally NEURO: Awake, alert and oriented MUSCULOSKELETAL: JOINT APPEARANCE: Heberden's nodes present bilaterally. No erythema or warmth of any upper or lowerextremity joint. RANGE OF MOTION: Can close fists bilaterally. SWOLLEN JOINTS/SYNOVITIS: R 3rd pip TENDER JOINTS: Tenderness to palpation of the b/l cmc joints, R 3rd pip, L 2nd mcp, L elbow + tenderness to lumbar spine *Aug Widespread Pain Index: 13 (0-19) Symptoms Severity Scale: 9 (0-12) WPI>7 and SS Scale>5 OR WPI 3-6 and SS Scale >9 consistent with fibromyalgia Labs reviewed and discussed with the patient: Latest Ref Rng 07/16/2023 08/06/2023 01/21/2024 WBC 3.70 - 11.00 k/uL 3.90 RBC 3.90 - 5.20 m/uL 4.17 Hemoglobin 11.5 - 15.5 g/dL 12.6 Hematocrit 36.0 - 46.0 % 36.0 MCV 80.0 - 100.0 fL 86.3 MCH 26.0 - 34.0 pg 30.2 MCHC 30.5 - 36.0 g/dL 35.0 RDW-CV 11.5 - 15.0 % 12.3 Platelet Count 150 - 400 k/uL 238 MPV 9.0 - 12.7 fL 10.1 Neut% % 49.2 Abs Neut (ANC) 1.45 - 7.50 k/uL 1.92 Lymph% % 29.5 Abs Lymph 1.00 - 4.00 k/uL 1.15 [place]% % 10.5 Abs [place] <0.87 k/uL 0.41 Eosin% % 9.5 Abs Eosin <0.46 k/uL 0.37 Baso% % 1.0 Abs Baso <0.11 k/uL 0.04 Immature Gran % % 0.3 IMMATURE GRANS (ABS) <0.10 k/uL <0.03 NRBC /100 WBC 0.0 Absolute nRBC <0.01 k/uL <0.01 DTYPE Auto Creatinine 0.58 - 0.96 mg/dL 0.79 eGFR >=60 mL/min/1.73m 85 Hep B Surface Ab, Qual Negative Negative Hep B Surf Ab Quant mIU/mL <8.00 <8.00 Vitamin D 25 Hydroxy 31.0 - 80.0 ng/mL 35.8 Calcium 8.5 - 10.2 mg/dL 9.8 TSH 0.270 - 4.200 mIU/L 0.666 IgG 700 - 1,600 mg/dL 679 (L) Hep C Antibody IA Negative Negative Negative Hep B Surface Ag Negative Negative Negative Hep B Core Ab, Total Negative Negative Negative Component Latest Ref Rng & Units 05/20/2023 WBC 3.70 - 11.00 k/uL 6.10 RBC 3.90 - 5.20 m/uL 4.56 Hemoglobin 11.5 - 15.5 g/dL 13.1 Platelet Count 150 - 400 k/uL 291 Creatinine 0.58 - 0.96 mg/dL 0.77 eGFR >=60 mL/min/1.73m 87 AST 13 - 35 U/L 19 ALT 7 - 38 U/L 14 Albumin 3.9 - 4.9 g/dL 4.2 Component Latest Ref Rng & Units 10/17/2021 Hep B Core Ab, Total Negative Negative Hep C Antibody IA Negative Negative Hep B Surface Ag Negative Negative Hep B Surface Ab, Qual Negative Negative Component Latest Ref Rng & Units 08/13/2020 c-ANCA Fluorescence Negative Negative p-ANCA Fluorescence Negative Negative Proteinase-3 Antibody <1.0 AI <0.2 Myeloperoxidase Antibody (MPO) <1.0 AI <0.2 Interpretation (ANCA) Equivocal staining seen on the ethanol (indirect immunofluorescence screen) slide . . . Staff Review (ANCA) Reviewed by Alexi Liu, Ph.D, D(ABMLI) Myeloperoxidase AutoAb <1.0 AI Duplicate request Proteinase 3 Antibody <1.0 AI Duplicate request Rheumatoid Factor <16 IU/mL 45 (H) CCP Antibody, IgG <20 Units >250 (H) *Oct 26 +RF 88 with unremarkable SSA, SSB, Jo1, PACKAGING CLERK, Sm, centromere, Scl *Sep 25 +CCP>250 and +MARCO [place] with unremarkable wbc, hgb, plt, cr, alt, ast, hep b/c and quantiferongold *2007 positive RF 35, CCP>100 STUDIES: 09/2023 DEXA: RESULTS: Lumbar spine (L1, L2, L3, L4): 0.935 g/cm2, T-score -1.0, Z-score 0.6 Lumbar spine: 2021: 0.879 g/cm2 Left Femoral Neck: 0.630 g/cm2, T-score -2.0, Z-score -0.6 Left Femoral Neck: 2021: 0.631 g/cm2 Left Total Hip: 0.835 g/cm2, T-score -0.9, Z-score 0 point Left Total Hip: 2021: 0.840 g/cm2 Addendum: Since 2021, there has been a 6.3% statistically significant interval increase in bone mineral density in the lumbar spine. Since 2021, there has been a 0.7% nonstatistically significant interval decrease in bone mineral density in the left hip. Since 2021, there has been a 0.2% nonstatistically significant interval decrease in bone mineral density in the left femoral neck. CHANGE IS STATISTICALLY SIGNIFICANT IN THE SPINE OR HIP IF GREATER THAN OR EQUAL TO 0.04 g/cm2 *December CT chest- No CT evidence of interstitial lung disease. *Sep DXA- Osteopenia in the lumbar spine and left femoral neck. LUMBAR SPINE: The bone mineral density from L1 through L4 is 0.879 grams per square centimeter which yields a T-score of -1.5. LEFT HIP: The bone mineral density of the total region of the hip is 0.840 grams per square centimeter which yields a T-score of -0.8. LEFT FEMORAL NECK: The bone mineral density of the femoral neck is 0.631 grams per square centimeter which yields a T-score of -2.0. 10-year Fracture Risk (FRAX): Major osteoporotic fracture risk 19% Hip fracture risk 3.0% *Aug xray hands- SOFT TISSUE SWELLING ADJACENT TO THE RIGHT SECOND MCP JOINT HAS SLIGHTLY INCREASED AND THERE IS INCREASED SOFT TISSUE SWELLING ADJACENT TO THE DISTAL RIGHT ULNA SMALL REMOTE APPEARING EROSIONS THAT WOULD BE COMPATIBLE WITH THE HISTORY OF RHEUMATOID ARTHRITIS APPEAR UNCHANGED. NO NEW EROSIONS *May xray L tib/fibula- Mild soft tissue swelling with no radiographic evidence of acute osseous injury. *February CXR- no acute changes IMPRESSION and PLAN: 1. Seropositive erosive RA: Wrist and MCP pain/swelling in the setting of RF and CCP positivity. Has been on numerous medications: HCQ, MTX (high LFTs, blood in urine), humira (injection site reaction), enbrel (lost efficacy), orencia (ineffective), actemra SC (ineffective) and simponi (ineffective). December CT chest without ILD (follows with Dr. Nilam Banda of [facility]). Ruxience with improvement. - Continue HCQ 300mg/day along with routine ophthalmology follow-up (last normal in Jun). She was reminded to schedule another exam for this year. - last ruxience was in 01/2024. Will hold for now. I asked that she contact our office once she is cleared by ortho to resume ruxience. - check labs now 2. Osteopenia: No hx of fracture. Sep DXA with high FRAX. In Aug, started reclast s/p SE like pain needing hospital visit. Last reclast was in 08/2023. 09/2023 DEXA: lowest T-score -2.0 to left femoral neck, with increase to lumbar spine, otherwise stable. - Next reclast due on or after 08/20/2024. She was previously given tramadol x10 tabs for pain. I asked that she check with ortho to see if she has any objections to her receiving reclast in 08/2024,given she is scheduled for a TKR in 08/2024. I asked that she contact me with an update. - Check labs now. Notify of results via [facility] - Calcium/vit D supplementation - Check DEXA in 09/2025 3. Fibromyalgia: Meets criteria for this as above. - Continue gabapentin 4. General health maintenance: Defers vaccines, states she gets sick from them for a while - Advised to continue follow-up with PCP for routine health maintenance and malignancy screening Follow-up in 5 months, or sooner if needed Thank you for allowing me to participate in the care of your patient. Michelle Simpson APRN.BUILDING MAINTENANCE SUPERVISOR documented in this encounterPremier Health [facility]09-10-2024 NoteC[facility]09-06-2024 Instructions* Patient Instructions* Michelle Simpson APRN.PENNY - 05/13/2024 7:56 AM EDT Please schedule Plaquenil eye exam for 06/2024 Please see if ortho has any objections to you receiving Reclast in 08/2024. Please contact me with an update. documented in this encounterPremier Health [facility] Center08-30-2024 Note* Addendum Note - Laura Robertson MD - 05/06/2024 11:24 AM EDTAddended by: LAURA ROBERTSON on: 05/06/2024 11:24 AM Modules accepted: Orders [facility]08-30-2024 Miscellaneous Notes* Addendum Note - Laura Robertson MD - 05/06/2024 11:24 AM EDTAddended by: LAURA ROBERTSON on: 05/06/2024 11:24 AM Modules accepted: Orders documented in this encounterPremier Health [facility] Center08-30-2024 History of Present illness Narrative* Laura Robertson MD - 05/06/2024 11:00 AM EDT Chief Complaint Patient presents with: F/U 3 Month HPI Mariam Minaya is a 63 year old female who presents here today for a 3 month follow up. Pt here today for a weight follow up. Weight: Pt currently taking Qsymia 15 mg once daily to help with weight loss. The medication is suppressing appetite. Only side effect she has is dry mouth but think it could be caused from another medication. Weight last visit was 163 lbs. Weight is down. Trying to watch diet closer, eating more fruits and vegetables, less sweets. Exercises by walking the dog and doing some upper body exercises.Limited due to issues with her knee. Scheduled to have knee replacement surgery on 08/23/24. Has lux off all her arthritis meds now until surgery, is still able to use the Plaquenil. Thyroid: she has been trying to get an appointment with a new grain shipper as hers has left. Sheneeds a referral from provider. Taking Synthroid [address] Schwartz in [place]. Warts on hand right hand. Has tried using OTC tx but that hasn't helped much. Past medical history, appointments, medications, allergies reviewed. Previous Medical History PAST MEDICAL HISTORY 12/22/2015: Astigmatism, regular 12/10/2015: Chronic bilateral low back pain with sciatica 04/06/2018: Chronic kidney insufficiency, stage 3 (moderate) (HCC) 05/03/2019: Encounter for gynecological examination Comment: [facility] 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 No date: RA (rheumatoid arthritis) ([facility]) Comment: + RF, +CCP OVERLAP PsA (+NAIL disease, dactylitis, axial inflammatory sx) No date: Sjogren's syndrome ([facility]) Comment: Neg SSA SSB in January 2009 09/07/2004: Thyroid cancer ([facility]) Comment: Seeing Dr. Joel de los santos, radioactive iodine ablation. papillary No date: Vitamin D deficiency Previous Surgical History PAST SURGICAL HISTORY 2000: BREAST AUGMENTATION W/PROSTHETIC IMPLANT Comment: bilateral implants 10/29/11: BX BREAST PERC NEED W/GUID Comment: U/S needle core left axillary LN 09/07/2010: COLONOSCOPY FLX DX W/COLLJ SPEC WHEN PFRMD Comment: Colonoscopy, repeat 10 yrs 11/06/06: EGD TRANSORAL BIOPSY SINGLE/MULTIPLE Comment: Hiatal hernia, gastritis, retained food No date: ESOPHAGOGASTRODUODENOSCOPY TRANSORAL DIAGNOSTIC Comment: EGD 03/15/2015: ESOPHAGOGASTRODUODENOSCOPY TRANSORAL DIAGNOSTIC Comment: EGD 10/15/06: FNA (FINE NEEDLE ASPIRATION) Comment: U/S FNA right thyroid nodule 09/22/11: FNA WITH IMAGING Comment: U/S FNA left axillary mass 2010: KNEE ARTHROSCOPY; Left No date: LIG/TRNSXJ FLP TUBE ABDL/VAG APPR UNI/BI Comment: Tubal ligation 05/30/16: NEUROPLASTY &/TRANSPOS MEDIAN NRV CARPAL TUNNE; Left Comment: Carpal tunnel decomp 09/26/2016: NEUROPLASTY &/TRANSPOS MEDIAN NRV CARPAL TUNNE; Right Comment: Carpal tunnel decomp 2011: PAST SURGICAL HISTORY OF Comment: removal of implants & replace & pannilectomy 2000: SYNOVECTOMY EACH Comment: left wrist 11/10/06: THYROIDECTOMY TOTAL/COMPLETE No date: TONSILLECTOMY & ADENOIDECTOMY <AGE 12 Comment: Tonsillectomy 2004: VAGINAL HYSTERECTOMY UTERUS 250 GM/< Comment: Hysterectomy, vaginal Family History FAMILY HISTORY Problem Relation Age of Onset Cancer Father None Mother Diabetes Brother from type I dx/d age 9 Breast Cancer Sister Thyroid Sister cancer Diabetes Grandchild Type I age 8 Patient Allergies ALLERGIES Allergen Reactions Flovent [Fluticason* Rash Amicar [Aminocaproi* Rash Humira [Adalimumab] Hives welt at injection site Tessalon [Benzonata* Other: See Comments hypersensitive Albuterol Other: See Comments severe leg cramps Methotrexate Contraindication-Medical Surgical elevated liver enz Current Medications Current Outpatient Medications on File Prior to Visit Medication Sig gabapentin (NEURONTIN) 300 mg capsule Take 1 capsule by mouth three times a day for 90 days. Take with 600 mg of Gabapentin ascorbic acid (VITAMIN C ORAL) Take by mouth once daily. predniSONE (DELTASONE) 20 mg tablet Prednisone Tablet Active 60 MG DAILY June 13, 2019 4:27am predniSONE (DELTASONE) 10 mg tablet TAKE BY MOUTH WITH FOOD. TAKE IN THE MORNING. TAKE 3 TABLETS ONCE DAILY FOR 1 WEEK, THEN 2 TABLETS ONCE DAILY FOR 1 WEEK, THEN 1 TABLET DAILY FOR 1 WEEK, THEN STOP gabapentin (NEURONTIN) 600 mg tablet Take 1 tablet by mouth three times a day for 180 days. levothyroxine (SYNTHROID) 125 mcg tablet Take 1 tablet by mouth once daily. Take on empty stomach. For Thyroid triamcinolone (KENALOG) 0.025 % cream Apply to affected area two times a day. hydrOXYchloroQUINE (PLAQUENIL) 200 mg tablet Take 1 and a half tablets by mouth once daily. Cholecalciferol, Vitamin D3, 50 mcg (2,000 unit) cap Take 1 capsule by mouth twice daily. polyethylene glycol 3350 (MIRALAX) 17 gram/dose powder 17gm in 8oz daily until stools regular (for constipation) vitamin b complex tab Take 1 tablet by mouth once daily. No current facility-administered medications on file prior to visit. Social History Social History Tobacco Use Smoking status: Never Smokeless tobacco: Never Vaping Use Vaping status: Never Used Substance Use Topics Alcohol use: No Comment: rare ; deo. wine Drug use: No EXAM: BP 103/70 Pulse 74 Resp 16 Wt 72.2 kg (159 lb 2.8 oz) SpO2 97% BMI 26.49 kg/m General Appearance: Well appearing, alert, in no acute distress, well-hydrated, well nourished.. Skin: several small warts on right index finger. Lungs: Lungs clear to auscultation. No wheezing, rhonchi, rales.. Heart: RRR without murmur, gallop, or rubs. No ectopy. Health Maintenance List Covid-19 Vaccine(1) Never done Depression Screening Never done Anxiety Screening Never done HIV Screening Never done Shingrix Vaccine(1 of 2) Never done Pneumococcal Vaccine(2 of 2 - PCV) due on 08/09/2012 RSV Vaccine(1 - 1-dose 60+ series) Never done Colorectal Cancer Screening due on 09/07/2020 Mammogram Screening due on 12/17/2021 Lipid Screening due on 05/03/2024 Influenza Vaccine(1) due on 05/08/2024 Serum Creatinine due on 07/16/2024 DTaP,Tdap,Td Vaccine(2 - Td or Tdap) due on 12/31/2024 Annual PCP Team Chronic Disease Visit due on 01/13/2025 Diabetes Screening due on 03/04/2026 Hepatitis C Screening Completed HPV Vaccine Aged Out Cervical Cancer Screening Discontinued Data reviewed Weight graph ASSESSMENT/PLAN: 1. Overweight (BMI 25.0-29.9) - ICD9: 278.02, ICD10: E66.3 (primary diagnosis) Continue current medications. 2. Eczema, unspecified type - ICD9: 692.9, ICD10: L30.9 - discussed skin care of rash - follow up if symptoms persist or worsen. 3. Thyroid cancer (HCC) - ICD9: 193, ICD10: C73 Consult Endo 4. Common wart - ICD9: 078.19, ICD10: B07.8 Appt to have treated Follow up in 3 months. I agree with the Chief Complaint, ROS, and Past Histories independently gathered by the clinical administrative support assistant and the remaining scribed note accurately describes my personal service to the patient. Medical Decision Making: Problems: Moderate: 2+ stable chronic illnesses Risk: Moderate: Drug management Medical Decision Making Level: 4 - Moderate Laura Robertson MD The documentation for this note was completed by Rae Sheth MA acting as scribe for Laura Robertson MD. May 06, 2024 10:41 AM. Rae Sheth MA documented in this encounterPremier [facility] Note[facility] History of Present illness Narrative* Nathaniel Vasquez MD - 04/20/2024 2:20 PM EDT Images from the original note were not included. CONSULT ORTHOPAEDIC: KNEE PRIMARY CARE PHYSICIAN: Laura Robertson MD REFERRING PROVIDER: No referring provider defined for this encounter. ASSESSMENT & PLAN This is a 63-year-old female who presents with bilateral knee pain. Patient has bilateral degenerative changes in her knees seen on x-ray. She has a history of rheumatoid arthritis. She has had injection therapy with corticosteroids last given on 12/28/2023 for her bilateral knees. She did get some improvement but was only temporary and for short time. She continues to have knee pain that is a 6 out of 10 mostly affecting the medial aspects of her knees. 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 Currently takes only Plaquenil for her rheumatoid arthritis. Denies any history of diabetes no history of smoking no history of blood clots no history of DVTs. No history of smoking Patient is on rituximab and last given on 02/04/24 -Recommendation by ACR/AAHKS is for a 7 month hold prior to TKA -This would be late August Impression: Bilateral Inflammatory Arthritis Rheumatoid with degenerative changes Diagnoses: No diagnosis found. Based upon the evaluation today and after discussions with Mariam Minaya, Mariam Yuliya Minaya has significant, worsening pain at the knee. This pain is increased with activity and weight bearing, and interferes with activities of daily living. These symptoms have continued despite a number of non-surgical measures, including a trial of oral pain medication and attempted physical therapy/ structured exercise program and/or use of an assistive device/ bracing (for at least 12 weeks unlessthe patient was unable to tolerate these measures as discussed above). At this point, the patient will not benefit from further PT due to the severity of their condition. The patient's physical examination is consistent with limitations in range of motion, pain with passive range of motion, crepitus, and effusion/ synovitis. These examination findings are corroborated by imaging findings of jointspace narrowing, periarticular osteophyte formation, and subchondral sclerosis. The patient has been treated by the practice and all reasonable treatments have failed to control the disease, which causes significant pain and limits activities of daily living. The patient has failed conservative treatment and joint replacement surgery was discussed and agreed upon by both provider and patient. We will proceed with surgical management to improve function and relieve pain refractory to non-surgical measures. Right Primary Total Knee Arthroplasty as evidenced by six months of unsuccessful non-operative treatment as outlined in the HPI below. Surgery Details Date and Location: At [facility] Aug 23. Implants: [place] [employer]: Yes Predicted LOS: 1 day (Outpatient candidate) Informed consent obtained in the office today. The risks and benefits of surgery were discussed at length including but not limited to the risks of infection, bleeding, nerve or blood vessel injury, deep venous thrombosis, pulmonary embolism, arthrofibrosis, reflex sympathetic dystrophy, , paralysis, knee or patellar dislocation, extensor mechanism injury, bone fracture, component loosening or failure requiring re-operation or amputation. Informed consent was obtained and the patient was scheduled for surgery. We also discussed fixation strategies including cement and cementless fixation and advantages and disadvantages of each. We discussed the details of the surgery as well as rehabilitation. All questions were answered, and the patient wishes to proceed with surgery.. The patient has been ordered: No orders found for this visit on 04/20/24. Anemia Screen Albumin Level HbA1C ts CONSULTS: IMPACT/PACE Consult for preoperative clearance. Total Joint Arthroplasty: Risk Calculator Mariam Minaya has a 3.05% chance of NOT returning home at discharge for a Primary total Kneereplacement. Mariam's estimated Length of Stay is 1 day (Outpatient candidate). Mariam's 30 day chance of readmission is 1.3%. Readmission Probability 1.3 % (within 30 days following surgery) Estimated LOS 1 day Discharge Disposition Probability D/C to Home 96.95 % D/C to SNF 3.05 % These calculations are based on the following factors: - 63 years of age - sex is not male - BMI of 27.18 kg/m2 - NarxCare score of 0 - 0 hospitalizations in the last 12 months - no history of heart disease - no history of diabetes - no history of COPD - no history of anemia - preoperative ambulation: independent community distances - 5 step(s) to enter home - bed location is NOT on the first floor - bath location is NOT on the first floor - caregiver is consistent - home is not more than 150 miles away - PROMIS-10 Mental Health T score 20-40 - Marital status: Risk Factors for Total Knee Arthroplasty (TKA) Major Risk Factors Obesity normal High: BMI > 40 Moderate: BMI 30-40 Normal: BMI < 30 Diabetes normal High: A1C > 8 Moderate: A1C 7-8 Normal: A1C < 7 Hx of DVT / PE normal High: dx of DVT / PE Normal: no dx of DVT / PE Smoking normal High: Current smoker Normal: Non smoker Narcotics Use Moderate Risk High:NarxCare >=300 Moderate: 100-299 Normal: 0-99 Depression normal High: PHQ-9 >14 Moderate: PHQ-9 5-14 Normal: PHQ-9 < 5 Area Deprivation Index (LIS) Unknown Risk High: LIS Score > 75 Moderate: LIS 50-75 Normal: LIS < 50 Area Deprivation Index (LIS) 01/23/2022 01/15/2023 LIS Score National Score 57 65 Patient Health Questionnaire (PHQ-9) 02/06/2024 04/07/2024 04/19/2024 PHQ-9 PHQ-2 Score 0 0 0 PHQ-9 Score 0 (0-4) minimal depression, (5-9) mild depression, (10-14) moderate depression, (15-19) moderately severe depression, (20-27) severe depression Bone Density Risk Screen Mariam Minaya is at risk for bone loss. Her last bone densitometry on file was completed on 09/22/2023. Risk Factors: Dx of Osteopenia Use of Furosemide Use of Proton Pump Inhibitors History of falls Hx of Renal Calculi Dx of Chronic Kidney Disease (CKD) Prednisone or use of systemic steroids Dx of Rheumatoid Arthritis Chronic Malnutrition Additional Risk Factors Chronic kidney disease eGFR (no units) Date Value 11/20/2015 59.56 08/16/2014 >60 eGFR- (no units) Date Value 09/16/2021 >60 04/09/2021 >60 NarxCare score NARX Narcotics: 220 (04/19/2024 11:02 AM) Malnutrition: No Malnutrition Screening Tool (MST) score on file- please complete the MST screeningtool (click here to open) and refresh the note. ACTIVE PROBLEM LIST Vitamin D Deficiency Overweight (Bmi 25.0-29.9) Chronic Bilateral Low Back Pain With Sciatica Gerd (Gastroesophageal Reflux Disease) Thyroid Cancer (Hcc) Sjogren's Syndrome (Hcc) Ra (Rheumatoid Arthritis) (Hcc) Psoriasis With Arthropathy (Hcc) Primary Fibromyalgia Syndrome Neck Pain Insomnia Chronic Kidney Insufficiency, Stage 3 (Moderate) (Hcc) Psoriasis Encounter for Gynecological Examination Constipation Encounter for Screening Mammogram for Breast Cancer Encounter for Screening for Diabetes Mellitus Sob (Shortness of Breath) Osteopenia Seropositive Rheumatoid Arthritis (Hcc) Seropositive Rheumatoid Arthritis of Multiple Joints (Hcc) Bilateral Primary Osteoarthritis of Knee Chronic Pain of Left Knee SUBJECTIVE CHIEF COMPLAINT: Knee Pain HPI: Mariam Minaya is a 63 year old patient with the presenting complaint of Established Patient and Knee Pain of the Left Knee and Established Patient and Knee Pain of the Right Knee. Mariam Minaya has had progressive problems with the knee(s) most of the day over the past 2 year(s) interfering with activities which include walking. The problem began limiting activities 1-3 years ago. Mariam reports a current pain level of 7 (Knee-Right). She describes the pain as Aching, Burning, Numbness, Sharp, Throbbing. The pain is Continuous, and has lasted for 22 Hours . Interventions tried include Medication, Relaxation, Cold, Pillow support. PROMIS Physical Function Score Descriptive Summary for PROMIS Physical Function T-score = 33 (Percentile 4) Much difficulty - Carry a laundry basket up a flight of stairs. Some difficulty - Walk at a normal speed. Unable - Walk more than a mile (1.6 km). 02/06/2024 03/10/2024 04/06/2024 PROMIS CAT Physical Function T-Score 34 (moderate dysfunction) 34 (moderate dysfunction) 33 (moderate dysfunction) Percentile 5 5 4 FUNCTIONAL STATUS: Do yardwork, such as raking leaves, weeding,or pushing a power mower (4.50 METs) PREVIOUS TREATMENTS: Last knee-related PT visit: 04/08/2024 (Knee - Right) Most recent knee injection: Large Joint Arthro/Inj: L knee joint (injected on 12/28/2023 by Nydia Wade) Current Anti-Inflammatory medications: prednisone Past anti-inflammatory medications (not necessarily for this reason for visit): betamethasone acetate,sod phos, celecoxib, dexamethasone, hydrocortisone sodium succ/PF, ketorolac tromethamine, methylprednisolone, methylprednisolone sod succ/PF, naproxen, prednisone Medical Treatments: Steroid Injections Left Knee, Steroid Injections Right Knee REVIEW OF SYSTEMS: GENERAL: Denies fever, chills malaise and weight loss.. PAIN ASSESSMENT: See HPI. CARDIOVASCULAR: Denies chest pain, history of A-fib, valvular disease, hypertension, CHF or pacemaker/ICD.. RESPIRATORY: Denies SOB, sputum production, dyspnea, COPD and hemoptysis.. GI: Denies GI ulcers, inflammatory disease, ascites or liver disease.. MUSCULOSKELETAL: See HPI. NEURO: Denies CVA, seizures, headaches.. ENDOCRINE: Denies diabetes, thyroid disease.. No data to display PAST MEDICAL HISTORY 12/22/2015: Astigmatism, regular 12/10/2015: Chronic bilateral low back pain with sciatica 04/06/2018: Chronic kidney insufficiency, stage 3 (moderate) ([facility]) 05/03/2019: Encounter for gynecological examination Comment: Seeing the [facility]. 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 No date: RA (rheumatoid arthritis) ([facility]) Comment: + RF, +CCP OVERLAP PsA (+NAIL disease, dactylitis, axial inflammatory sx) No date: Sjogren's syndrome ([facility]) Comment: Neg SSA SSB in January 2009 09/07/2004: Thyroid cancer ([facility]) Comment: Seeing Dr. Joel de los santos, radioactive iodine ablation. papillary No date: Vitamin D deficiency PAST SURGICAL HISTORY 2001: BREAST AUGMENTATION W/PROSTHETIC IMPLANT Comment: bilateral implants 10/29/11: BX BREAST PERC NEED W/GUID Comment: U/S needle core left axillary LN 09/07/2010: COLONOSCOPY FLX DX W/COLLJ SPEC WHEN PFRMD Comment: Colonoscopy, repeat 10 yrs 11/06/06: EGD TRANSORAL BIOPSY SINGLE/MULTIPLE Comment: Hiatal hernia, gastritis, retained food No date: ESOPHAGOGASTRODUODENOSCOPY TRANSORAL DIAGNOSTIC Comment: EGD 03/15/2015: ESOPHAGOGASTRODUODENOSCOPY TRANSORAL DIAGNOSTIC Comment: EGD 10/15/06: FNA (FINE NEEDLE ASPIRATION) Comment: U/S FNA right thyroid nodule 09/22/11: FNA WITH IMAGING Comment: U/S FNA left axillary mass 2010: KNEE ARTHROSCOPY; Left No date: LIG/TRNSXJ FLP TUBE ABDL/VAG APPR UNI/BI Comment: Tubal ligation 05/30/16: NEUROPLASTY &/TRANSPOS MEDIAN NRV CARPAL TUNNE; Left Comment: Carpal tunnel decomp 09/26/2016: NEUROPLASTY &/TRANSPOS MEDIAN NRV CARPAL TUNNE; Right Comment: Carpal tunnel decomp 2011: PAST SURGICAL HISTORY OF Comment: removal of implants & replace & pannilectomy 2000: SYNOVECTOMY EACH Comment: left wrist 11/10/06: THYROIDECTOMY TOTAL/COMPLETE No date: TONSILLECTOMY & ADENOIDECTOMY <AGE 12 Comment: Tonsillectomy 2004: VAGINAL HYSTERECTOMY UTERUS 250 GM/< Comment: Hysterectomy, vaginal FAMILY HISTORY Problem Relation Age of Onset Cancer Father None Mother Diabetes Brother from type I dx/d age 9 Breast Cancer Sister Thyroid Sister cancer Diabetes Grandchild Type I age 8 Social History Tobacco Use Smoking status: Never Smokeless tobacco: Never Vaping Use Vaping Use: Never used Substance Use Topics Alcohol use: No Comment: rare ; edo. wine Drug use: No ALLERGIES: Flovent [Fluticasone], Amicar [Aminocaproic Acid], Humira [Adalimumab], Tessalon [Benzonatate], Albuterol, and Methotrexate MEDICATIONS: gabapentin (NEURONTIN) 300 mg capsule Take 1 capsule by mouth three times a day for 90 days. Take with 600 mg of Gabapentin predniSONE (DELTASONE) 10 mg tablet TAKE BY MOUTH WITH FOOD. TAKE IN THE MORNING. TAKE 3 TABLETS ONCE DAILY FOR 1 WEEK, THEN 2 TABLETS ONCE DAILY FOR 1 WEEK, THEN 1 TABLET DAILY FOR 1 WEEK, THEN STOP gabapentin (NEURONTIN) 600 mg tablet Take 1 tablet by mouth three times a day for 180 days. levothyroxine (SYNTHROID) 125 mcg tablet Take 1 tablet by mouth once daily. Take on empty stomach. For Thyroid phentermine-topiramate ER (QSYMIA) 15-92 mg 24 Hr Capsule Take 1 capsule by mouth once daily triamcinolone (KENALOG) 0.025 % cream Apply to affected area two times a day. hydrOXYchloroQUINE (PLAQUENIL) 200 mg tablet Take 1 and a half tablets by mouth once daily. Cholecalciferol, Vitamin D3, 50 mcg (2,000 unit) cap Take 1 capsule by mouth twice daily. polyethylene glycol 3350 (MIRALAX) 17 gram/dose powder 17gm in 8oz daily until stools regular (for constipation) vitamin b complex tab Take 1 tablet by mouth once daily. OBJECTIVE PHYSICAL EXAM: There were no vitals taken for this visit. All other systems deferred. GENERAL: Appears healthy, well-nourished, no deformities. HABITUS: Normal GAIT: Antalgic to the right KNEE EXAM: Left: Alignment: Varus deformity, Correctable Range of motion is 0 degrees in extension and 110 degrees of flexion. Extension La degrees Pain with ROM: Yes Effusion: Slight Tender to the palpation of Medial femoral condyle Pain with patellar compression: No Stability: Anterior/Posterior stable and Varus/Valgus stable Hip Exam: flexion to 100+ degrees, full extension, internal/external rotation adequate, and no painwith log roll Neurovascular Status: Sensation Intact, Moves foot and ankle up & down, and 2+ dorsalis pedis Right: Alignment: Varus deformity, Correctable Range of motion is 0 degrees in extension and 110 degrees of flexion. Extension La degrees Pain with ROM: Yes Effusion: Slight Tender to the palpation of Medial femoral condyle Pain with patellar compression: No Stability: Anterior/Posterior stable and Varus/Valgus stable Hip Exam: flexion to 100+ degrees, full extension, internal/external rotation adequate, and no painwith log roll Neurovascular Status: Sensation Intact, Moves foot and ankle up & down, and 2+ dorsalis pedis DATA: She was last seen in orthopaedic clinic for her knee/leg on 04/11/2024 with Nydia Wade. Most recent knee imaging was completed on 12/31/2023 (XR KNEE GENERAL 4V AP BOTH/PA BOTH/LAT/MERC BILATERAL) . Attached is imaging for the order.Most recent lower leg imaging was completed on 02/06/2023 (XR TIBIA FIBULA 2V AP/LAT RIGHT) . Attached is imaging for the order.The last knee-related PT visit was completed on 04/08/2024 (Knee - Right). The most recent knee injection was Large Joint Arthro/Inj: L knee joint, injected on 12/28/2023 by Nydia Wade. Diagnostic tests reviewed for today's visit: Right knee X-Ray: Medial joint space noted to have severe degenerative changes and Osteophyte formation in the medial joint space(s) Left knee X-Ray: Medial joint space noted to have severe degenerative changes and Osteophyte formation in the medial joint space(s) The following conditions were addressed during the office visit today: I spent a total of approximately 65 minutes on the date of the service which included preparing to see the patient, [id number] patient care, completing clinical documentation, obtaining and/or reviewing separately obtained history, performing a medically appropriate examination, counseling and educating the patient/family/caregiver, ordering medications, tests, or procedures, communicating withother HCPs (not separately reported), independently interpreting results (not separately reported),communicating results to the patient/family/caregiver, and care coordination (not separately reported). SIGNATURE: Nathaniel Vasquez MD PATIENT NAME: Mariam Minaya DATE: April 20, 2024 TIME: 2:21 PM documented in this encounterPremier Health [facility]08-14-[facility]24 Telephone encounter Note * Telephone Encounter - Anayeli Ng APRN.CNP - 04/20/2024 9:41 AM EDT The following approved medication requests have been transmitted electronically. Requested Prescriptions Pending Prescriptions Disp Refills gabapentin (NEURONTIN) 300 mg capsule 90 capsule 2 Sig: Take 1 capsule by mouth three times a day for 90 days. Take with 600 mg of Gabapentin Anayeli Ng APRN.CNP [facility]08-14-2024 Miscellaneous Notes* Telephone Encounter - Anayeli Ng APRN.CNP - 04/20/2024 9:41 AM EDT The following approved medication requests have been transmitted electronically. Requested Prescriptions Pending Prescriptions Disp Refills gabapentin (NEURONTIN) 300 mg capsule 90 capsule 2 Sig: Take 1 capsule by mouth three times a day for 90 days. Take with 600 mg of Gabapentin Anayeli Ng APRN.CNP * Telephone Encounter - Elodia Elder RPh - 04/20/2024 8:16 AM EDT Pharmacist Managed Refill Encounter Name: Mariam Minaya Refill authorization request(s) received and reviewed under effective consult agreement. The patient consented to the pharmacy service and agreed to allow medications to be collaboratively managed bythe pharmacist. The patient may decline or cancel the agreement at any time. Upon review, it was confirmed that an active patient-provider relationship exists, and the prescriber is a participating physician under the consult agreement. Last office visit in this department: Visit date not found Last distance health visit in this department: Visit date not found Next appointment in this department: Visit date not found Requested Prescriptions Pending Prescriptions Disp Refills gabapentin (NEURONTIN) 300 mg capsule 90 capsule 2 Sig: Take 1 capsule by mouth three times a day for 90 days. Take with 600 mg of Gabapentin The medication(s) fall under category 3: Medications fail to meet 1 or more criteria (medication excluded from collaborative practice agreement) necessary for pharmacist approval, routed to provider for review. # of refills routed in this encounter: 1 # of refills approved in this encounter: 0 Elodia Elder RPh documented in this encounterPrem[facility]08-14-[facility]24 Telephone encounter Note * Telephone Encounter - Elodia Elder RPh - 04/20/2024 8:16 AM EDT Pharmacist Managed Refill Encounter Name: Mariam Minaya Refill authorization request(s) received and reviewed under effective consult agreement. The patient consented to the pharmacy service and agreed to allow medications to be collaboratively managed bythe pharmacist. The patient may decline or cancel the agreement at any time. Upon review, it was confirmed that an active patient-provider relationship exists, and the prescriber is a participating physician under the consult agreement. Last office visit in this department: Visit date not found Last [facility] visit in this department: Visit date not found Next appointment in this department: Visit date not found Requested Prescriptions Pending Prescriptions Disp Refills gabapentin (NEURONTIN) 300 mg capsule 90 capsule 2 Sig: Take 1 capsule by mouth three times a day for 90 days. Take with 600 mg of Gabapentin The medication(s) fall under category 3: Medications fail to meet 1 or more criteria (medication excluded from collaborative practice agreement) necessary for pharmacist approval, routed to provider for review. # of refills routed in this encounter: 1 # of refills approved in this encounter: 0 Elodia Elder RPh [facility]08-05-2024 [facility] History of Present illness Narrative* Nydia Wade PA-C - 04/11/2024 2:29 PM EDT Nydia Wade PA-C Established Patient Department of Orthopaedics Orthopaedics [address] [place] [id number] Dept: [phone] April 11, 2024 SUBJECTIVE: CHIEF COMPLAINT: Established Patient and Knee Pain of the Right Knee and Established Patient and Knee Pain of the Left Knee HPI: Ms. Mariam Minaya is a 63 year old female. She has known osteoarthritis and presents today for follow up. Briefly, she has rheumatoid arthritis managed by rheumatology and has been treated for knee arthritis with corticosteroid injections in the past as well as recent physical therapy. Today she rates her pain a 6 on a scale of 0 to 10. She describes the pain as constant and achy. The has been taking gabapentin and tylenol with minimal relief. She has been wearing her right knee OAreaction with some relief for activity. She has persistent pain with activity that affects her daily life. Patient states she has started declining social activities as she doesn't want to hold her friends back. Past Medical History: PAST MEDICAL HISTORY 12/22/2015: Astigmatism, regular 12/10/2015: Chronic bilateral low back pain with sciatica 04/06/2018: Chronic kidney insufficiency, stage 3 (moderate) ([facility]) 05/03/2019: Encounter for gynecological examination Comment: [facility] 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 No date: RA (rheumatoid arthritis) ([facility]) Comment: + RF, +CCP OVERLAP PsA (+NAIL disease, dactylitis, axial inflammatory sx) No date: Sjogren's syndrome ([facility]) Comment: Neg SSA SSB in January 2009 09/07/2004: Thyroid cancer ([facility]) Comment: Seeing Dr. Joel de los santos, radioactive iodine ablation. papillary No date: Vitamin D deficiency Past Surgical History: PAST SURGICAL HISTORY 2000: BREAST AUGMENTATION W/PROSTHETIC IMPLANT Comment: bilateral implants 10/29/11: BX BREAST PERC NEED W/GUID Comment: U/S needle core left axillary LN 09/07/2010: COLONOSCOPY FLX DX W/COLLJ SPEC WHEN PFRMD Comment: Colonoscopy, repeat 10 yrs 11/06/06: EGD TRANSORAL BIOPSY SINGLE/MULTIPLE Comment: Hiatal hernia, gastritis, retained food No date: ESOPHAGOGASTRODUODENOSCOPY TRANSORAL DIAGNOSTIC Comment: EGD 03/15/2015: ESOPHAGOGASTRODUODENOSCOPY TRANSORAL DIAGNOSTIC Comment: EGD 10/15/06: FNA (FINE NEEDLE ASPIRATION) Comment: U/S FNA right thyroid nodule 09/22/11: FNA WITH IMAGING Comment: U/S FNA left axillary mass 2010: KNEE ARTHROSCOPY; Left No date: LIG/TRNSXJ FLP TUBE ABDL/VAG APPR UNI/BI Comment: Tubal ligation 05/30/16: NEUROPLASTY &/TRANSPOS MEDIAN NRV CARPAL TUNNE; Left Comment: Carpal tunnel decomp 09/26/2016: NEUROPLASTY &/TRANSPOS MEDIAN NRV CARPAL TUNNE; Right Comment: Carpal tunnel decomp 2011: PAST SURGICAL HISTORY OF Comment: removal of implants & replace & pannilectomy 2000: SYNOVECTOMY EACH Comment: left wrist 11/10/06: THYROIDECTOMY TOTAL/COMPLETE No date: TONSILLECTOMY & ADENOIDECTOMY <AGE 12 Comment: Tonsillectomy 2003: VAGINAL HYSTERECTOMY UTERUS 250 GM/< Comment: Hysterectomy, vaginal Family History: FAMILY HISTORY Problem Relation Age of Onset Cancer Father None Mother Diabetes Brother from type I dx/d age 9 Breast Cancer Sister Thyroid Sister cancer Diabetes Grandchild Type I age 8 Social History: Social History Tobacco Use Smoking status: Never Smokeless tobacco: Never Vaping Use Vaping Use: Never used Substance Use Topics Alcohol use: No Comment: rare ; deo. wine Drug use: No Medications: Current Outpatient Medications Medication Sig predniSONE (DELTASONE) 10 mg tablet TAKE BY MOUTH WITH FOOD. TAKE IN THE MORNING. TAKE 3 TABLETS ONCE DAILY FOR 1 WEEK, THEN 2 TABLETS ONCE DAILY FOR 1 WEEK, THEN 1 TABLET DAILY FOR 1 WEEK, THEN STOP gabapentin (NEURONTIN) 300 mg capsule Take 1 capsule by mouth three times a day for 90 days. Take with 600 mg of Gabapentin gabapentin (NEURONTIN) 600 mg tablet Take 1 tablet by mouth three times a day for 180 days. levothyroxine (SYNTHROID) 125 mcg tablet Take 1 tablet by mouth once daily. Take on empty stomach. For Thyroid phentermine-topiramate ER (QSYMIA) 15-92 mg 24 Hr Capsule Take 1 capsule by mouth once daily triamcinolone (KENALOG) 0.025 % cream Apply to affected area two times a day. hydrOXYchloroQUINE (PLAQUENIL) 200 mg tablet Take 1 and a half tablets by mouth once daily. Cholecalciferol, Vitamin D3, 50 mcg (2,000 unit) cap Take 1 capsule by mouth twice daily. polyethylene glycol 3350 (MIRALAX) 17 gram/dose powder 17gm in 8oz daily until stools regular (for constipation) vitamin b complex tab Take 1 tablet by mouth once daily. No current facility-administered medications for this visit. Allergies: Flovent [Fluticasone], Amicar [Aminocaproic Acid], Humira [Adalimumab], Tessalon [Benzonatate], Albuterol, and Methotrexate ROS: General: negative for fatigue, malaise, weight loss/gain Musculoskeletal: see HPI Psych: no depression, anxiety OBJECTIVE: Ms. Mariam Minaya is a pleasant 63 year old in no apparent distress. Gen:There were no vitals taken for this visit. nl development, non obese, no deformities ENT: Normocephalic, normal hearing, moist mucosa CV: Pulses:DP/PT= 2+ and symmetric, capillary refill < 2 secs, no peripheral edema/varicosities Skin: no rash, bruising or lesions. Good turgor. Psych: cooperative and appropriate, alert and oriented x 3, good mood and affect. Musculoskeletal: bilateral hips and ankles FROM without pain or limitation. RT Knee: Alignment: Varus deformity, Correctable Active Extension 0 and Active Flexion 100 Extension lag: No Pain with ROM: Yes Effusion: Slight Erythema: No Ecchymosis: No Tender to the palpation of Medial joint line Pain with patellar compression: No Stability: Anterior/Posterior stable and Varus/Valgus stable Patellofemoral crepitus: Yes Quad Atrophy: No Brittani's: Negative Anterior drawer: Negative LT Knee: Alignment: Varus deformity, Correctable Active Extension 0 and Active Flexion 110 Extension lag: No Pain with ROM: Yes Effusion: Slight Erythema: No Ecchymosis: No Tender to the palpation of Medial joint line Pain with patellar compression: No Stability: Anterior/Posterior stable and Varus/Valgus stable Patellofemoral crepitus: Yes Quad Atrophy: No Brittani's: Negative Anterior drawer: Negative IMAGING: Not indicated ASSESSMENT: M17.0 Primary osteoarthritis of both knees (primary encounter diagnosis) M06.9 Rheumatoid arthritis involving both knees, unspecified whether rheumatoid factor present ([facility]) PLAN: Reviewed images taken previously. Patient has failed treatment with NSAIDs, corticosteroid injections, bracing and PT. Her knee pain affects her life daily and she is interested in pursuing TKA. She will schedule surgical consult with one of the total joint surgeons. FOLLOW UP INSTRUCTIONS: TKA consult Nydia Wade PA-C documented in this encounterPrem[facility]08-[facility]24 Telephone encounter Note * Telephone Encounter - Leigha Handy RN - 04/11/2024 11:17 AM EDT Attempted to reach patient. Left detailed VM that script was sent to pharmacy Leigha Handy RN [facility]08-05-2024 Miscellaneous Notes* Telephone Encounter - Leigha Handy RN - 04/11/2024 11:17 AM EDT Attempted to reach patient. Left detailed VM that script was sent to pharmacy Leigha Handy RN * Telephone Encounter - Kenneth Alonzo MD - 04/11/2024 11:14 AM EDT Rx sent * Telephone Encounter - Azra Mon - 04/11/2024 10:19 AM EDT Patient calling to find out status of her medication request for Prednisone. Please redirect prescription to [facility]. Please assist. [place]. Patient thought that the prescription had been sent there. The pharmacy to which the prescription was sent is a [facility] in [place]. Please call patient when completed. * Telephone Encounter - Kenneth Alonzo MD - 04/08/2024 4:55 PM EDT Pred rx sent * Telephone Encounter - David Mona - 04/08/2024 12:36 PM EDT Patient returning call from the office (malachi oshea). She states that she is having a flare up. It is mainly in her hands and knees. Symptoms for 4 days. * Telephone Encounter - Leigha Handy RN - 04/08/2024 12:25 PM EDT Patient has been identified by name and date of : Yes RX INSTRUCTIONS: Patient aware RX will be sent to pharmacy. No need to notify patient. LAST APPOINTMENT: Visit date not found UPCOMING APPOINTMENT: Visit date not found LABS: Hemoglobin (g/dL) Date Value 01/21/2024 12.6 10/17/2021 12.7 Hematocrit (%) Date Value 01/21/2024 36.0 10/17/2021 38.5 WBC (k/uL) Date Value 01/21/2024 3.90 10/17/2021 6.15 Platelet Count (k/uL) Date Value 01/21/2024 238 10/17/2021 322 AST Date Value Ref Range Status 05/20/2023 19 13 - 35 U/L Final ALT Date Value Ref Range Status 05/20/2023 14 7 - 38 U/L Final Creatinine Date Value Ref Range Status 07/16/2023 0.79 0.58 - 0.96 mg/dL Final No results found for: URICACID * Telephone Encounter - Elo [place] - 04/08/2024 12:18 PM EDT PATIENT ASKING FOR A REFILL ON THE predniSONE (DELTASONE) 10 mg tablet PLEASE ADVISE. documented in this encounterPrem[facility]08-05-2024 Telephone encounter Note * Telephone Encounter - Kenneth Alonzo MD - 04/11/2024 11:14 AM EDT Rx sent [facility]08-05-2024 Telephone encounter Note* Telephone Encounter - Azra Mon - 04/11/2024 10:19 AM EDT Patient calling to find out status of her medication request for Prednisone. Please redirect prescription to [facility]. Please assist. [place]. Patient thought that the prescription had been sent there. The pharmacy to which the prescription was sent is a [facility] in [place]. Please call patient when completed. [facility]08-02-2024 Telephone encounter Note* Telephone Encounter - Kenneth Alonzo MD - 04/08/2024 4:55 PM EDT Pred rx sent [facility]08-02-2024 Telephone encounter Note* Telephone Encounter - Azra Mon - 04/08/2024 12:36 PM EDT Patient returning call from the office (malachi oshea). She states that she is having a flare up. It is mainly in her hands and knees. Symptoms for 4 days. [facility]08-02-2024 Telephone encounter Note* Telephone Encounter - Leigha Handy RN - 04/08/2024 12:25 PM EDT Patient has been identified by name and date of : Yes RX INSTRUCTIONS: Patient aware RX will be sent to pharmacy. No need to notify patient. LAST APPOINTMENT: Visit date not found UPCOMING APPOINTMENT: Visit date not found LABS: Hemoglobin (g/dL) Date Value 01/21/2024 12.6 10/17/2021 12.7 Hematocrit (%) Date Value 01/21/2024 36.0 10/17/2021 38.5 WBC (k/uL) Date Value 01/21/2024 3.90 10/17/2021 6.15 Platelet Count (k/uL) Date Value 01/21/2024 238 10/17/2021 322 AST Date Value Ref Range Status 05/20/2023 19 13 - 35 U/L Final ALT Date Value Ref Range Status 05/20/2023 14 7 - 38 U/L Final Creatinine Date Value Ref Range Status 07/16/2023 0.79 0.58 - 0.96 mg/dL Final No results found for: URICACID [facility]08-02-2024 Telephone encounter Note* Telephone Encounter - Elo Cleveland - 04/08/2024 12:18 PM EDT PATIENT ASKING FOR A REFILL ON THE predniSONE (DELTASONE) 10 mg tablet PLEASE ADVISE. [facility]08-02-2024 [facility] History of Present illness Narrative* Sergei Spear, PT - 04/08/2024 8:50 AM EDT Images from the original note were not included. Episode Visit Count: 4 Therapist That Will Accept/Oversee The Plan Of Care: Sergei Spear PT Start of Care Date: 03/11/24 Onset Date: 03/11/99 Patient Identified by Name and Date of : Yes REHABILITATION AND SPORTS THERAPY PHYSICAL THERAPY PROGRESS REPORT PLAN OF CARE UPDATE: Assessment: Mariam Minaya demonstrates difficulty with completing the exercises, standing, and walking. She has not progressed towards towards goals. Patient continues to present with impairments in gait,independence in exercise, overall function, range of motion, and strength that interfere with walking in the community, rising from a chair, lifting, stair negotiation . Current prognosis is Good dueto: current objective clinical presentation . Goals updated 04/08/2024 Goals for Episode of Care: created on 03/11/24 through 04/18/24 Pt will demo 30 sec STS score of 10 reps or better in 6 weeks or less to demo improved functional strength of bilateral LE's - Not met Burke in home exercise program. - Not met Patient will decrease pain rating by 2 points to meet minimal clinical important difference for numeric pain rating scale. - Not met Perform driving without pain. - Not met Increase ROM of bilateral knees to 0-125 for ease of walking and stair negotiation - Not met Normal gait. - Not met Patient Goals: Reduce the pain Patient Goals: Reduce the pain Planned Interventions, Frequency, and Duration: 1x/week, 4 weeks Total Number of Visits Planned: 4 Patient to be seen for Therapeutic exercise (14132), Neuromuscular re-education (58200), Manual therapy (02689), Therapeutic activities (58731), Self-fci management (25002), Gait Training (86812), Patient/Family/Caregiver Education PLAN FOR NEXT VISIT: Place PT on hold until pt has further consult with referring provider SUBJECTIVE: She feels that she is losing her balance. Not sure if this is due to the pain. The pastweek has been very painful. Can be walking and just get a sharp pain in the knee. Patient Goals: Reduce the pain Functional Limitations: walking in the community, rising from a chair, lifting, stair negotiation Prior Level of Function: Independent without limitations Intake Information: Prescription present Pain: Pain Pain Level: 0 (when sitting in a particular chair; pain can get to a 7/10 when walking) Pain Location: Knee - Right Pain Level 2: 0 (5 when walking around) Pain Location 2: Knee - Left PROMIS Scales 04/06/2024 03/11/2024 03/10/2024 Higher is Better Phys Func - Score 33 (moderate dysfunction) 34 (moderate dysfunction) Phys Func - Percentile 4 5 Self-Eff Symptom - Score 37 (Low) 47 (Average) Self-Eff Symptom - Percentile 10 38 T-scores: mean of general population = 50. 5 points is clinically meaningfully difference Percentiles provide an indication of how the patient's score ranks in relation to the general population. Higher percentile rankings indicate better function/quality of life. 50th percentile is the average of the general population and indicates half of respondents had a worse score. OBJECTIVE MEASURES WITH LEVEL OF FUNCTION: LE AROM R Knee Extension: 4 Degrees R Knee Flexion: 100 Degrees L Knee Extension: 2 Degrees L Knee Flexion: 124 Degrees LE Strength R LE Strength: Difficult to test due to high levels of pain in the knee L LE Strength: Grossly 3+/5 Gait Gait Distance (feet): 25 Gait Device: None Gait Deviations: Right Lower Extremity Gait Deviations Right Lower Extremity: Step length decreased, Stance time decreased, Lacks full knee extension during terminal swing TREATMENT: Therapeutic Exercise: 1: All objective measures taken this session 2: *Discussed continuation of the HEP 3: Heel slides Skilled Intervention: Patient was educated in proper exercise technique and purpose for exercises. Provided written instruction for home exercise program to facilitate proper performance and compliance. Correct performance of therapeutic exercises was facilitated with verbal and visual cuing. Billing Therapeutic Exercise Treatment Minutes: 38 Skilled Treatment Time Minutes (timed and untimed codes): 38 Total Session Time (minutes): 38 Session Start Time : 847 Session Stop Time : 925 Sergei Spear PT documented in this encounterPremier Health [facility]07-22-2024 History of Present illness Narrative* Sergei Spear PT - 03/28/2024 2:40 PM EDT Program_ID:[id number] Access Code: [email or web address] URL: [email or web address] Date: 03-28-2024 Prepared By: Sergei Spear Program Notes Exercises - Supine Active Straight Leg Raise - 1 x daily - 7 x weekly - 4 sets - 10 reps - Supine Active Straight Leg Raise - 1 x daily - 7 x weekly - 4 sets - 10 reps - Supine Knee Extension Stretch on Towel Roll - 1 x daily - 7 x weekly - 4 sets - 10 reps - Supine Knee Extension Stretch on Towel Roll - 1 x daily - 7 x weekly - 4 sets - 10 reps - Supine Heel Slide with Strap - 1 x daily - 7 x weekly - 4 sets - 10 reps - Supine Heel Slide with Strap - 1 x daily - 7 x weekly - 4 sets - 10 reps - Seated Hamstring Stretch - x daily - 7 x weekly - 1 sets - 3 reps - Seated Hip Adduction Isometrics with Ball - 1-2 x daily - 7 x weekly - 2 sets - 10 reps - Seated Hip Abduction with Resistance - 1-2 x daily - 7 x weekly - 2 sets - 10 reps - Seated Hamstring Stretch - 1 x daily - 7 x weekly - 4 sets - reps * Sergei Spear PT - 03/28/2024 1:54 PM EDT Episode Visit Count: 3 Therapist That Will Accept/Oversee The Plan Of Care: Sergei Spear PT Start of Care Date: 03/11/24 Onset Date: 03/11/99 Patient Identified by Name and Date of : Yes REHABILITATION AND SPORTS THERAPY PHYSICAL THERAPY TREATMENT NOTE ASSESSMENT: Mariam Minaya tolerated the session with expected muscle soreness. She demonstrated exquisite tenderness upon palpating the anterior tibialis of the R leg. The patient will continue to benefit from ongoing skilled physical therapy to progress toward set goals. PLAN FOR NEXT VISIT: Could trial STM over R AT. Hs stretching. Gentle ROM exercises SUBJECTIVE: The knees are sore. The exercises are going alright. Pain: Pain Pain Level: 5 Pain Location: Knee - Right Pain Level 2: 5 Pain Location 2: Knee - Left OBJECTIVE MEASURES WITH LEVEL OF FUNCTION: LE AROM R Knee Flexion: 114 Degrees L Knee Flexion: 125 Degrees Tender to palpation of the anterior tibialis RLE and PT R leg TREATMENT: Therapeutic Exercise: 1: Seated Hip add iso 2 x 10 2: Seated Heel slides x 10 3: Seated HS stretch 4 x 30 sec 4: Seated LAQ x 2 (Too painful in RLE) Skilled Intervention: Patient was educated in proper exercise technique and purpose for exercises. Manual Therapy: 1: Manual HS stretching in supine 2: STM along AT and PT of RLE Skilled Intervention: Manual skills to improve joint mobility, ROM, and decrease pain. Utilized anatomy knowledge of the therapist, and assessment of patient's response to intervention. Billing Therapeutic Exercise Treatment Minutes: 25 Manual TherapyTreatment Minutes: 26 Skilled Treatment Time Minutes (timed and untimed codes): 51 Total Session Time (minutes): 51 Session Start Time : 1354 Session Stop Time : 1445 Sergei Spear PT documented in this encounterPremier Health [facility]07-22-2024 [facility]07-[facility] Telephone encounter Note* Telephone Encounter - Ema Ortiz - 03/24/2024 4:02 PM EDT LVM to reschedule appointment with SHANNON Osman [facility]07-18-2024 Miscellaneous Notes* Telephone Encounter - Ema Ortiz - 03/24/2024 4:02 PM EDT LVM to reschedule appointment with SHANNON Osman * Telephone Encounter - Elodia Horvath LPN - 03/24/2024 3:18 PM EDT Patient will have completed physical therapy x 4 visits by 04/05/2024*. In order to re-request MRI approval she needs 4-6 weeks documented PT. She is currently scheduled for 04/04 with SHANNON Osman which will only be 3 physical therapy appointments. Will send request to scheduling to reschedule appointment with SHANNON Osman after fourth PT session on 04/05/2024. documented in this encounterPremier Health [facility]07-18-2024 Telephone encounter Note * Telephone Encounter - Elodia Horvath LPN - 03/24/2024 3:18 PM EDT Patient will have completed physical therapy x 4 visits by 04/05/2024*. In order to re-request MRI approval she needs 4-6 weeks documented PT. She is currently scheduled for 04/04 with SHANNON Osman which will only be 3 physical therapy appointments. Will send request to scheduling to reschedule appointment with SHANNON Osman after fourth PT session on 04/05/2024. [facility] [facility]07-10-2024 History of Present illness Narrative* Miesha Birmingham PTA - 03/16/2024 6:39 PM EDT Program_ID:[id number] Access Code: [email or web address] URL: [email or web address] Date: 03-16-2024 Prepared By: Sergei Spear Program Notes Exercises - Supine Active Straight Leg Raise - 1 x daily - 7 x weekly - 4 sets - 10 reps - Supine Active Straight Leg Raise - 1 x daily - 7 x weekly - 4 sets - 10 reps - Supine Knee Extension Stretch on Towel Roll - 1 x daily - 7 x weekly - 4 sets - 10 reps - Supine Knee Extension Stretch on Towel Roll - 1 x daily - 7 x weekly - 4 sets - 10 reps - Supine Heel Slide with Strap - 1 x daily - 7 x weekly - 4 sets - 10 reps - Supine Heel Slide with Strap - 1 x daily - 7 x weekly - 4 sets - 10 reps - Seated Hamstring Stretch - x daily - 7 x weekly - 1 sets - 3 reps - Seated Hip Adduction Isometrics with Ball - 1-2 x daily - 7 x weekly - 2 sets - 10 reps - Seated Hip Abduction with Resistance - 1-2 x daily - 7 x weekly - 2 sets - 10 reps * Demetria Crane, PT - 03/16/2024 6:04 PM EDT Episode Visit Count: 2 Therapist That Will Accept/Oversee The Plan Of Care: Sergei Spear PT Start of Care Date: 03/11/24 Onset Date: 03/11/99 Patient Identified by Name and Date of : Yes REHABILITATION AND SPORTS THERAPY PHYSICAL THERAPY TREATMENT NOTE ASSESSMENT: Mariam Yuliya Newtondylanfainagiovanni tolerated the session with fatigue, decreased symptoms, and expected muscle soreness. She demonstrated improvements in pain in B knees. The patient will continue to benefit from ongoing skilled physical therapy to progress toward set goals. PLAN FOR NEXT VISIT: Asses response to hip strengthening exercises SUBJECTIVE: Pt states that she felt great after she lefet her first therapy session, but now that night she had a lot of increased pain. Pt reports that her knees are terrible today. Pt states that her B knees feel worse than at initial evaluation. Pt states that now if she mckenna to stretch her legsout or extend them, it hurts and feels like it is tearing around medial knee and below knee cap. Pain: Pain Pain Level: (none currently but walking intensifies the pain) Pain Location: Knee - Right Pain Level 2: (non currently; but pain increases with pain) Pain Location 2: Knee - Left Post Treatment Pain Post Treatment Pain Level: Better Post Treatment Pain Location: Knee - Right, Knee - Left OBJECTIVE MEASURES WITH LEVEL OF FUNCTION: Increased HS tightness on L compared to R. TREATMENT: Therapeutic Exercise: 1: SciFit seated stepper x 6 minutes, seat #10 (1:1 throughout. Discussed current HEP.) 2: *Seated HS stretch 3x30 seconds B 3: *Seated hip adduction with ball 2x10 4: *Seated hip adduction with pink theraband 2x10 5: Discontinued previous HEP for now due to it increasing symptoms. Skilled Intervention: Patient was educated in proper exercise technique and purpose for exercises. Reviewed and educated patient on additions/changes for home exercise program as above (*). Skilled judgment was used in selection of appropriate interventions. Provided written instruction for home exercise program to facilitate proper performance and compliance. Correct performance of therapeutic exercises was facilitated with verbal and visual cuing. Billing Therapeutic Exercise Treatment Minutes: 43 Skilled Treatment Time Minutes (timed and untimed codes): 43 Total Session Time (minutes): 43 Session Start Time : 1800 Session Stop Time : 1843 Miesha Birmingham, DBEBIE Crane PT documented in this encounterPremier Health [facility] History of Present illness Narrative* Sergei Spear, PT - 03/11/2024 2:09 PM EDT Program_ID:[id number] Access Code: [email or web address] URL: [email or web address] Date: 03-11-2024 Prepared By: Sergei Spear Program Notes Exercises - Supine Active Straight Leg Raise - 1 x daily - 7 x weekly - 4 sets - 10 reps - Supine Active Straight Leg Raise - 1 x daily - 7 x weekly - 4 sets - 10 reps - Supine Knee Extension Stretch on Towel Roll - 1 x daily - 7 x weekly - 4 sets - 10 reps - Supine Knee Extension Stretch on Towel Roll - 1 x daily - 7 x weekly - 4 sets - 10 reps - Supine Heel Slide with Strap - 1 x daily - 7 x weekly - 4 sets - 10 reps - Supine Heel Slide with Strap - 1 x daily - 7 x weekly - 4 sets - 10 reps * Sergei Spear PT - 03/11/2024 1:15 PM EDT Images from the original note were not included. Episode Visit Count: 1 Therapist That Will Accept/Oversee The Plan Of Care: Sergei Spear PT Start of Care Date: 03/11/24 Onset Date: 03/11/99 Patient Identified by Name and Date of : Yes REHABILITATION AND SPORTS THERAPY PHYSICAL THERAPY EVALUATION PLAN OF CARE: Assessment: Mariam Minaya presents with chief complaint of bilateral knee pain that interferes with walking in the community . She presents with impairments in ADL's, gait, independence in exercise, joint mobility, overall function, range of motion, and strength. PROMIS (Patient-Reported Outcomes Measurement Information System) scores were reviewed and identified as a rehabilitation concern. Prognosis for therapy is Good due to: current objective clinical presentation . She will benefit from skilled therapy services to meet the goals established for this plan of care as noted below. Goals for Episode of Care: created on 03/11/24 through Pt will demo 30 sec STS score of 10 reps or better in 6 weeks or less to demo improved functional strength of bilateral LE's Burke in home exercise program. Patient will decrease pain rating by 2 points to meet minimal clinical important difference for numeric pain rating scale. Perform driving without pain. Increase ROM of bilateral knees to 0-125 for ease of walking and stair negotiation Normal gait. Patient Goals: Reduce the pain Planned Interventions, Frequency, and Duration: Current Frequency: 1x/week Duration: 4 weeks Total Number of Visits Planned: 4 Planned Treatment Interventions: Therapeutic exercise (03051), Neuromuscular re- education (98207), Manual therapy (12209), Therapeutic activities (66047), Self- fci management (85290), Gait Training (80532), Patient/Family/Caregiver Education PLAN FOR NEXT VISIT: Progress knee ROM as tolerated. Non-weight bearing strengthening exercises fornow. Patient demonstrates good understanding of plan of care and treatment. The above goals and plan of care were discussed and agreed upon by patient/family. SUBJECTIVE: Knee pain on both sides. Pain in the L knee is worse. The knee brace she has helps. Had cortisone shots in both knees 6 weeks ago which did not help. Trying gel shots next. The knees are really stiffin the morning. Driving is really painful. The pain keeps her awake. Patient Goals: Reduce the pain Functional Limitations: walking in the community Prior Level of Function: Independent without limitations Relevant History Employment: Retired Intake Information: Prescription present Pain: Pain Pain Level: 5 Pain Location: Knee - Right Description: (Feels that the knee will just shift) Additional Pain Information : Location 2 Pain Level 2: 4 Pain Location 2: Knee - Left PROMIS Scales 03/11/2024 03/10/2024 02/06/2024 Higher is Better Phys Func - Score 34 (moderate dysfunction) 34 (moderate dysfunction) Phys Func - Percentile 5 5 Self-Eff Symptom - Score 47 (Average) Self-Eff Symptom - Percentile 38 T-scores: mean of general population = 50. 5 points is clinically meaningfully difference Percentiles provide an indication of how the patient's score ranks in relation to the general population. Higher percentile rankings indicate better function/quality of life. 50th percentile is the average of the general population and indicates half of respondents had a worse score. OBJECTIVE MEASURES WITH LEVEL OF FUNCTION: LE AROM R Knee Extension: 4 Degrees R Knee Flexion: 108 Degrees L Knee Extension: 2 Degrees L Knee Flexion: 124 Degrees LE Strength Lower Extremity Dynamometer Testing : Yes Dynamometer Strength Right Quadriceps Strength (lbs): 23.4 Left Quadriceps Strength (lbs): 24.7 Gait Gait: Independent Gait Distance (feet): 25 Gait Device: None Gait Deviations: General Deviations General Deviations/Observations: Antalgic gait (bilaterally. Lack of full knee extension during terminal swing. Decreased juliana and step length) Waist / Hip Waist Circumference: 37.25 Inches Hip Circumference: 42 Inches Waist to Hip Ratio:: 0.89 Functional Performance Test Results 5 Times Sit to Stand Test : 5 sec Timed Up and Go (sec): 9.7 sec Education: Education Learning Preferences: Demonstration, Explanation, Performance, Printed Materials Barriers: None Learning/educational needs: Home exercise program, Plan of Care, Changes in Plan of Care Education Provided: Yes, see treatment interventions for education provided Education Provided To: Patient Education Mode/Type: Demonstration, Explanation/Discussion, Literature/Printed Materials, Performance Response to Education/Teach Back: States/Identifies, Return Demonstration Knee OA Overview Class: Completed Nutrition and Weight Management Class: Completed Exercise and Knee OA Class: Completed TREATMENT: PT Treatment Interventions: Therapeutic Exercise, Self-Mcfp Management Evaluation Therapeutic Exercise: 1: Discussed the HEP and purpose of the HEP. Avoid pain with the exercises. 2: Heel slide with strap assist x 10 RLE then x 10 LLE 3: Supine SLR x 10 RLE then x 10 LLE 4: Knee extension stretch in supine x 10 RLE then x 10 LLE (Towel roll placed under each ankle) Skilled Intervention: Patient was educated in proper exercise technique and purpose for exercises. Skilled judgment was used in selection of appropriate interventions. Provided written instruction for home exercise program to facilitate proper performance and compliance. Correct performance of therapeutic exercises was facilitated with verbal and visual cuing. Self-Mcfp Management: 1: Discussed knee OA class and nutrition class. Discussed avoiding impact exercises such as joggingand any recreational activities that cause excessive knee pain. Skilled Intervention: Skilled judgment in the selection of proper modification for activity of daily living/home management based on clinical presentation, deficits, and needs. Billing * Evaluation Low Complexity: 1 Unit Therapeutic Exercise Treatment Minutes: 20 Self-Care/Home Management Treatment Minutes: 5 Skilled Treatment Time Minutes (timed and untimed codes): 50 Total Session Time (minutes): 50 Session Start Time : 1315 Session Stop Time : 1405 Sergei Spear PT documented in this encounterPremier Health [facility]07-05-2024 NoteC[facility]06-28-2024 NoteHNO ID: [id number] Author: ?, ?, ? Service: ? Author Type: ? Type: Progress Notes Filed: 03/04/2024 09:54 Note Text: Patient is scheduled for her Wellness in Apr with Dr. Robertson. Will discuss colonoscopy at that visit [facility]06-28-[facility] History of Present illness Narrative* Linda De La Rosa - 03/04/2024 9:53 AM EDT Patient is scheduled for her Wellness in Apr with Dr. Robertson. Will discuss colonoscopy at that visit Linda De La Rosa * Linda De La Rosa - 02/29/2024 2:14 PM EDT 02-28...1'st attempt, LVM for patient to return call, due for colonoscopy consult w/general surgeryor if she had one elsewhere get info and sent to Dr. Robertson * Martha Thakkar RN - 02/29/2024 1:36 PM EDT COLONOSCOPY PATIENT OUTREACH Action/FYI Colonoscopy Recall Patient identified by Name and : Yes. --- OUTREACH OUTCOME ACTION: Consult- Telephone Call- Pt is overdue for screening colonoscopy. Pt needs consult due to medical history and/or medications. Please call patient and schedule appointment with General Surgery Provider. Martha Thakkar, JOSSELINE documented in this encounterPremier Health [facility]06-24-2024 NoteC[facility]06-24-2024 NoteC[facility]06-17-2024 Telephone encounter Note* Telephone Encounter - Nydia Wade PA-C - 02/22/2024 12:19 PM EDT MRI has been denied as patient has not participated in at least 6 weeks of physical therapy. Consult to PT placed today. Left voicemail for patient stating MRI was denied as she needs PT. Nydia Wade PA-C [facility]06-17-2024 Miscellaneous Notes* Telephone Encounter - Nydia Wade PA-C - 02/22/2024 12:19 PM EDT MRI has been denied as patient has not participated in at least 6 weeks of physical therapy. Consult to PT placed today. Left voicemail for patient stating MRI was denied as she needs PT. Nydia Wade PA-C documented in this encounterPremier Health [facility]06-06-2024 History of Present illness Narrative* Nydia Wade PA-C - 02/11/2024 3:57 PM EDT Nydia Wade PA-C Established Patient Department of Orthopaedics Orthopaedics [address] [place], [place] [id number] Dept: [phone] February 11, 2024 SUBJECTIVE: CHIEF COMPLAINT: Established Patient and Knee Pain of the Left Knee and Established Patient and Knee Pain of the Right Knee HPI: Ms. Mariam Minaya is a 63 year old female. She was last seen in the office on 12/28/2023where bilateral knee corticosteroid injections were administered. She presents today for follow up. Today she rates her pain a 6 on a scale of 0 to 10. She states that the injections did not provide significant relief. Her rheumatology infusions are currently only providing relief from the waist up. She denies any recent injury. Past Medical History: PAST MEDICAL HISTORY Diagnosis Date Astigmatism, regular 12/22/2015 Chronic bilateral low back pain with sciatica 12/10/2015 Chronic kidney insufficiency, stage 3 (moderate) (HCC) 04/06/2018 Encounter for gynecological examination 05/03/2019 Seeing the [facility]. 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 RA (rheumatoid arthritis) (HCC) + RF, +CCP OVERLAP PsA (+NAIL disease, dactylitis, axial inflammatory sx) Sjogren's syndrome (HCC) Neg SSA SSB in January 2009 Thyroid cancer (HCC) 09/07/[address] Maldonado removed, radioactive iodine ablation. papillary Vitamin D deficiency Past Surgical History: PAST SURGICAL HISTORY Procedure Laterality Date BREAST AUGMENTATION W/PROSTHETIC IMPLANT 2000 bilateral implants BX BREAST PERC NEED W/GUID 10/29/11 U/S needle core left axillary LN COLONOSCOPY FLX DX W/COLLJ SPEC WHEN PFRMD 09/07/2010 Colonoscopy, repeat 10 yrs EGD TRANSORAL BIOPSY SINGLE/MULTIPLE 11/06/06 Hiatal hernia, gastritis, retained food ESOPHAGOGASTRODUODENOSCOPY TRANSORAL DIAGNOSTIC EGD ESOPHAGOGASTRODUODENOSCOPY TRANSORAL DIAGNOSTIC 03/15/2015 EGD FNA (FINE NEEDLE ASPIRATION) 10/15/06 U/S FNA right thyroid nodule FNA WITH IMAGING 09/22/11 U/S FNA left axillary mass KNEE ARTHROSCOPY Left 2009 LIG/TRNSXJ FLP TUBE ABDL/VAG APPR UNI/BI Tubal ligation NEUROPLASTY &/TRANSPOS MEDIAN NRV CARPAL TUNNE Left 05/30/16 Carpal tunnel decomp NEUROPLASTY &/TRANSPOS MEDIAN NRV CARPAL TUNNE Right 09/26/2016 Carpal tunnel decomp PAST SURGICAL HISTORY OF 2010 removal of implants & replace & pannilectomy SYNOVECTOMY EACH 1999 left wrist THYROIDECTOMY TOTAL/COMPLETE 11/10/06 TONSILLECTOMY & ADENOIDECTOMY <AGE 12 Tonsillectomy VAGINAL HYSTERECTOMY UTERUS 250 GM/< 2003 Hysterectomy, vaginal Family History: FAMILY HISTORY Problem Relation Age of Onset Cancer Father None Mother Diabetes Brother from type I dx/d age 9 Breast Cancer Sister Thyroid Sister cancer Diabetes Grandchild Type I age 8 Social History: Social History Tobacco Use Smoking status: Never Smokeless tobacco: Never Vaping Use Vaping Use: Never used Substance Use Topics Alcohol use: No Comment: rare ; deo. wine Drug use: No Medications: Current Outpatient Medications Medication Sig gabapentin (NEURONTIN) 300 mg capsule Take 1 capsule by mouth three times a day for 90 days. Take with 600 mg of Gabapentin gabapentin (NEURONTIN) 600 mg tablet Take 1 tablet by mouth three times a day for 180 days. levothyroxine (SYNTHROID) 125 mcg tablet Take 1 tablet by mouth once daily. Take on empty stomach. For Thyroid phentermine-topiramate ER (QSYMIA) 15-92 mg 24 Hr Capsule Take 1 capsule by mouth once daily mupirocin (BACTROBAN) 2 % ointment Apply to affected area three times a day. triamcinolone (KENALOG) 0.025 % cream Apply to affected area two times a day. hydrOXYchloroQUINE (PLAQUENIL) 200 mg tablet Take 1 and a half tablets by mouth once daily. Cholecalciferol, Vitamin D3, 50 mcg (2,000 unit) cap Take 1 capsule by mouth twice daily. polyethylene glycol 3350 (MIRALAX) 17 gram/dose powder 17gm in 8oz daily until stools regular (for constipation) vitamin b complex tab Take 1 tablet by mouth once daily. predniSONE (DELTASONE) 10 mg tablet TAKE BY MOUTH WITH FOOD. TAKE IN THE MORNING. TAKE 3 TABLETS DAILY FOR 1 WEEK, THEN 2 TABLETS DAILY FOR 1 WEEK, THEN 1 TABLET DAILY FOR 1 WEEK, THEN STOP No current facility-administered medications for this visit. Allergies: Flovent [Fluticasone], Amicar [Aminocaproic Acid], Humira [Adalimumab], Tessalon [Benzonatate], Albuterol, and Methotrexate ROS: General: negative for fatigue, malaise, weight loss/gain Musculoskeletal: see HPI Psych: no depression, anxiety OBJECTIVE: Ms. Mariam Minaya is a pleasant 63 year old in no apparent distress. Gen:There were no vitals taken for this visit. nl development, non obese, no deformities ENT: Normocephalic, normal hearing, moist mucosa CV: Pulses:DP/PT= 2+ and symmetric, capillary refill < 2 secs, no peripheral edema/varicosities Skin: no rash, bruising or lesions. Good turgor. Psych: cooperative and appropriate, alert and oriented x 3, good mood and affect. Musculoskeletal: bilateral hips and ankles FROM without pain or limitation. RT Knee: Alignment: Varus deformity, Correctable Active Extension 0 and Active Flexion 90 Extension lag: No Pain with ROM: Yes Effusion: Slight Erythema: No Ecchymosis: No Tender to the palpation of Medial joint line Pain with patellar compression: No Stability: Anterior/Posterior stable and Varus/Valgus stable Patellofemoral crepitus: Yes Quad Atrophy: No Brittani's: Negative Anterior drawer: Negative LT Knee: Alignment: Varus deformity, Correctable Active Extension 0 and Active Flexion 100 Extension lag: No Pain with ROM: Yes Effusion: Slight Erythema: No Ecchymosis: No Tender to the palpation of Medial joint line Pain with patellar compression: No Stability: Anterior/Posterior stable and Varus/Valgus stable Patellofemoral crepitus: Yes Quad Atrophy: No Brittani's: Negative Anterior drawer: Negative IMAGING: Not indicated ASSESSMENT: M17.0 Bilateral primary osteoarthritis of knee (primary encounter diagnosis) M21.161 Acquired varus deformity knee, right PLAN: Reviewed images taken previously. Patient fit for and given right knee medial sparing OA reaction brace. MRI of left knee ordered. Patient agreeable with plan and will follow up after MRI. Discussed possibility of gel injections and eventual TKA. FOLLOW UP INSTRUCTIONS: After MRI Nydia Wade PA-C documented in this encounterPremier Health [facility]06-06-2024 NoteC[facility]05-30-2024 History of Present illness Narrative* Slime Lloyd RN - 02/04/2024 10:19 AM EDT PRE-INFUSION SCREENING Since your last infusion have you: Had any major change in your health? No Been to the emergency room? No Been hospitalized? No Had any infections? No Taken any antibiotics? No Had surgery or do you have upcoming surgery? No In the past 7 days have you had: Fevers/chills/night sweats? No New cough or cold symptoms (including sore throat)? No Nausea, vomiting, diarrhea? No Unusual swelling in your ankles or feet? No Burning/blood with urination or urinary frequency? No New weakness, numbness, stumbling, or falls? No New rash or open sores? No two rounded red open areas on leg, Dr. Lopez notified ok to treat Patient offered bathroom assistance throughout treatment? Yes documented in this encounterPremier Health [facility]05-17-2024 Telephone encounter Note * Telephone Encounter - Shaniqua Parks RPh - 01/22/2024 2:02 PM EDT Pharmacist Refill Authorization Review Name: Mariam Minaya Date: 01/22/2024 Time: 2:02 PM Refill authorization request(s) received and reviewed under effective consult agreement. Upon review, did confirm that an active patient-provider relationship exists and that the prescriber is a participating physician under the consult agreement. Last office visit in this department: 01/14/2024 Laura Robertson MD Last distance health visit in this department: 12/03/2022 PodlogarAlly APRN.BUILDING MAINTENANCE SUPERVISOR Next appointment in this department: 04/15/2024 Laura Robertson MD The medication(s) fall under the following categories: Category 1: No barriers to continued therapy exists and patient is up to date with provider visits.Prescription(s) issued as below. Requested Prescriptions Signed Prescriptions Disp Refills levothyroxine (SYNTHROID) 125 mcg tablet 90 tablet 1 Sig: Take 1 tablet by mouth once daily. Take on empty stomach. For Thyroid Authorizing Provider: LAURA ROBERTSON Ordering User: SHANIQUA PARKS Number of refills approved in this encounter: 1 Number of refills forwarded to provider for review: 0 Number of refills denied in this encounter: 0 Shaniqua Parks RPh [facility]05-17-2024 Miscellaneous Notes* Telephone Encounter - Shaniqua Parks RPh - 01/22/2024 2:02 PM EDT Pharmacist Refill Authorization Review Name: Mariam Minaya Date: 01/22/2024 Time: 2:02 PM Refill authorization request(s) received and reviewed under effective consult agreement. Upon review, did confirm that an active patient-provider relationship exists and that the prescriber is a participating physician under the consult agreement. Last office visit in this department: 01/14/2024 Laura Robertson MD Last distance health visit in this department: 12/03/2022 Ally Chacon APRN.BUILDING MAINTENANCE SUPERVISOR Next appointment in this department: 04/15/2024 Laura Robertson MD The medication(s) fall under the following categories: Category 1: No barriers to continued therapy exists and patient is up to date with provider visits.Prescription(s) issued as below. Requested Prescriptions Signed Prescriptions Disp Refills levothyroxine (SYNTHROID) 125 mcg tablet 90 tablet 1 Sig: Take 1 tablet by mouth once daily. Take on empty stomach. For Thyroid Authorizing Provider: LAURA ROBERTSON Ordering User: SHANIQUA PARKS Number of refills approved in this encounter: 1 Number of refills forwarded to provider for review: 0 Number of refills denied in this encounter: 0 Shaniqua Parks RPh documented in this encounterPremier Health [facility]05-17-2024 Telephone encounter Note * Telephone Encounter - Laura Robertson MD - 01/22/2024 11:21 AM EDT OK to refill as ordered Laura Robertson MD [facility]05-17-2024 Miscellaneous Notes* Telephone Encounter - aLura Robertson MD - 01/22/2024 11:21 AM EDT OK to refill as ordered Laura Robertson MD * Telephone Encounter - Shaniqua Parks RPh - 01/22/2024 10:18 AM EDT Pharmacist Refill Authorization Review Name: Mariam Minaya Date: 01/22/2024 Time: 10:18 AM Refill authorization request(s) received and reviewed under effective consult agreement. Upon review, did confirm that an active patient-provider relationship exists and that the prescriber is a participating physician under the consult agreement. Last office visit in this department: Visit date not found Last distance health visit in this department: Visit date not found Next appointment in this department: Visit date not found The medication(s) fall under the following categories: Category 3: Medication(s) does not qualify for pharmacist renewal due to medication excluded from collaborative practice agreement. Renewal request sent to provider for review. Requested Prescriptions Pending Prescriptions Disp Refills gabapentin (NEURONTIN) 300 mg capsule 90 capsule 2 Sig: Take 1 capsule by mouth three times a day for 90 days. Take with 600 mg of Gabapentin gabapentin (NEURONTIN) 600 mg tablet 90 tablet 5 Sig: Take 1 tablet by mouth three times a day for 180 days. Number of refills approved in this encounter: 0 Number of refills forwarded to provider for review: 2 Number of refills denied in this encounter: 0 Shaniqua Parks RPh documented [facility] Telephone encounter Note * Telephone Encounter - Shaniqua Parks RPh - 01/22/2024 10:18 AM EDT Pharmacist Refill Authorization Review Name: Mariam Minaya Date: 01/22/2024 Time: 10:18 AM Refill authorization request(s) received and reviewed under effective consult agreement. Upon review, did confirm that an active patient-provider relationship exists and that the prescriber is a participating physician under the consult agreement. Last office visit in this department: Visit date not found Last distance health visit in this department: Visit date not found Next appointment in this department: Visit date not found The medication(s) fall under the following categories: Category 3: Medication(s) does not qualify for pharmacist renewal due to medication excluded from collaborative practice agreement. Renewal request sent to provider for review. Requested Prescriptions Pending Prescriptions Disp Refills gabapentin (NEURONTIN) 300 mg capsule 90 capsule 2 Sig: Take 1 capsule by mouth three times a day for 90 days. Take with 600 mg of Gabapentin gabapentin (NEURONTIN) 600 mg tablet 90 tablet 5 Sig: Take 1 tablet by mouth three times a day for 180 days. Number of refills approved in this encounter: 0 Number of refills forwarded to provider for review: 2 Number of refills denied in this encounter: 0 Shaniqua Parks RPh [facility]05-17-[facility] Telephone encounter Note* Telephone Encounter - Florence Hester RN - 01/22/2024 7:49 AM EDT 07/07/24 D-Ruxience PA thru 01/03/2025 6 hours 07/21/24 D-Ruxience PA thru 01/03/2025 4 hours [facility]05-17-2024 Miscellaneous Notes* Telephone Encounter - Florence Hester RN - 01/22/2024 7:49 AM EDT 07/07/24 D-Ruxience PA thru 01/03/2025 6 hours 07/21/24 D-Ruxience PA thru 01/03/2025 4 hours documented in this encounterPrem[facility] History of Present illness Narrative* Florence Hester RN - 01/21/2024 9:21 AM EDT PRE-INFUSION SCREENING Since your last infusion have you: Had any major change in your health? No Been to the emergency room? No Been hospitalized? No Had any infections? No Taken any antibiotics? No Had surgery or do you have upcoming surgery? No In the past 7 days have you had: Fevers/chills/night sweats? No New cough or cold symptoms (including sore throat)? No Nausea, vomiting, diarrhea? No Unusual swelling in your ankles or feet? No Burning/blood with urination or urinary frequency? No New weakness, numbness, stumbling, or falls? No New rash or open sores? No Per Michelle Simpson CNP, do not need an ANC parameter for infusion of Ruxience. Patient offered bathroom assistance throughout treatment? Yes documented in this encounterPrem[facility] History of Present illness Narrative* Laura Robertson MD - 01/14/2024 4:20 PM EDT Chief Complaint Patient presents with: F/U 3 Month HPI Mariam Minaya is a 63 year old female who presents here today for 3 month follow up. Obesity: Last visit we stopped Adipex and started pt on Qsymia 15 mg daily. Weight last visit was 177 lbs. Working on watching diet and walking dogs about a mile. She is not drink alcohol which she hasn't drank much anyway, no sweets, more vegetables and fruits. Doing some upper body exercises. No major activity, has bad knee and had injections which have not helped much, may need replacement. She is mainly trying eat right. Has used Adipex in the past with good results. No pop. She has oatmealfor breakfast, salad for lunch, and chicken for dinner. Dinner is her biggest meal of the day. Thyroid: Is taking Synthroid 125 mcg daily. Stale on this dose. TSH 0.666 08/06/23 Knees hurt more at night, doesn't seem to loosen up the more she is moving around. Seen ortho, had injections but not sure that helped. May need total knee replacement. Uses Bactroban ointment for nose sores. Past medical history, appointments, medications, allergies reviewed. Previous Medical History PAST MEDICAL HISTORY Diagnosis Date Astigmatism, regular 12/22/2015 Chronic bilateral low back pain with sciatica 12/10/2015 Chronic kidney insufficiency, stage 3 (moderate) (HCC) 04/06/2018 Encounter for gynecological examination 05/03/2019 [facility]. 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 RA (rheumatoid arthritis) (HCC) + RF, +CCP OVERLAP PsA (+NAIL disease, dactylitis, axial inflammatory sx) Sjogren's syndrome (HCC) Neg SSA SSB in January 2009 Thyroid cancer (HCC) 09/07/[address] Maldonado removed, radioactive iodine ablation. papillary Vitamin D deficiency Previous Surgical History PAST SURGICAL HISTORY Procedure Laterality Date BREAST AUGMENTATION W/PROSTHETIC IMPLANT 2000 bilateral implants BX BREAST PERC NEED W/GUID 10/29/11 U/S needle core left axillary LN COLONOSCOPY FLX DX W/COLLJ SPEC WHEN PFRMD 09/07/2010 Colonoscopy, repeat 10 yrs EGD TRANSORAL BIOPSY SINGLE/MULTIPLE 11/06/06 Hiatal hernia, gastritis, retained food ESOPHAGOGASTRODUODENOSCOPY TRANSORAL DIAGNOSTIC EGD ESOPHAGOGASTRODUODENOSCOPY TRANSORAL DIAGNOSTIC 03/15/2015 EGD FNA (FINE NEEDLE ASPIRATION) 10/15/06 U/S FNA right thyroid nodule FNA WITH IMAGING 09/22/11 U/S FNA left axillary mass KNEE ARTHROSCOPY Left 2009 LIG/TRNSXJ FLP TUBE ABDL/VAG APPR UNI/BI Tubal ligation NEUROPLASTY &/TRANSPOS MEDIAN NRV CARPAL TUNNE Left 05/30/16 Carpal tunnel decomp NEUROPLASTY &/TRANSPOS MEDIAN NRV CARPAL TUNNE Right 09/26/2016 Carpal tunnel decomp PAST SURGICAL HISTORY OF 2010 removal of implants & replace & pannilectomy SYNOVECTOMY EACH 1999 left wrist THYROIDECTOMY TOTAL/COMPLETE 11/10/06 TONSILLECTOMY & ADENOIDECTOMY <AGE 12 Tonsillectomy VAGINAL HYSTERECTOMY UTERUS 250 GM/< 2003 Hysterectomy, vaginal Family History FAMILY HISTORY Problem Relation Age of Onset Cancer Father None Mother Diabetes Brother from type I dx/d age 9 Breast Cancer Sister Thyroid Sister cancer Diabetes Grandchild Type I age 8 Patient Allergies ALLERGIES Allergen Reactions Flovent [Fluticason* Rash Amicar [Aminocaproi* Rash Humira [Adalimumab] Hives welt at injection site Tessalon [Benzonata* Other: See Comments hypersensitive Albuterol Other: See Comments severe leg cramps Methotrexate Contraindication-Medical Surgical elevated liver enz Current Medications Current Outpatient Medications on File Prior to Visit Medication Sig gabapentin (NEURONTIN) 300 mg capsule Take 1 capsule by mouth three times a day for 90 days. Take with 600 mg of Gabapentin phentermine-topiramate ER (QSYMIA) 15-92 mg 24 Hr Capsule Take 1 capsule by mouth once daily predniSONE (DELTASONE) 10 mg tablet TAKE BY MOUTH WITH FOOD. TAKE IN THE MORNING. TAKE 3 TABLETS DAILY FOR 1 WEEK, THEN 2 TABLETS DAILY FOR 1 WEEK, THEN 1 TABLET DAILY FOR 1 WEEK, THEN STOP (Patient not taking: Reported on 12/28/2023) triamcinolone (KENALOG) 0.025 % cream Apply to affected area two times a day. levothyroxine (SYNTHROID) 125 mcg tablet Take 1 tablet by mouth once daily. Take on empty stomach. For Thyroid gabapentin (NEURONTIN) 600 mg tablet Take 1 tablet by mouth three times a day for 180 days. hydrOXYchloroQUINE (PLAQUENIL) 200 mg tablet Take 1 and a half tablets by mouth once daily. Cholecalciferol, Vitamin D3, 50 mcg (2,000 unit) cap Take 1 capsule by mouth twice daily. polyethylene glycol 3350 (MIRALAX) 17 gram/dose powder 17gm in 8oz daily until stools regular (for constipation) vitamin b complex tab Take 1 tablet by mouth once daily. No current facility-administered medications on file prior to visit. Social History Social History Tobacco Use Smoking status: Never Smokeless tobacco: Never Vaping Use Vaping Use: Never used Substance Use Topics Alcohol use: No Comment: rare ; deo. wine Drug use: No EXAM: BP 124/70 Pulse 74 Resp 16 Wt 74.1 kg (163 lb 4.8 oz) BMI 25.58 kg/m General Appearance: Well appearing, alert, in no acute distress, well-hydrated, well nourished.. Lungs: Lungs clear to auscultation. No wheezing, rhonchi, rales.. Heart: RRR without murmur, gallop, or rubs. No ectopy. Health Maintenance List Covid-19 Vaccine(1) Never done HIV Screening Never done Shingrix Vaccine(1 of 2) Never done Pneumococcal Vaccine(2 of 2 - PCV) due on 08/09/2012 RSV Vaccine(1 - 1-dose 60+ series) Never done Colorectal Cancer Screening due on 09/07/2020 Mammogram Screening due on 12/17/2021 Behavioral Health Screening Never done Lipid Screening due on 05/03/2024 Influenza Vaccine(Season Ended) due on 05/08/2024 Serum Creatinine due on 07/16/2024 Annual PCP Team Chronic Disease Visit due on 10/16/2024 DTaP,Tdap,Td Vaccine(2 - Td or Tdap) due on 12/31/2024 Diabetes Screening due on 03/04/2026 Hepatitis C Screening Completed HPV Vaccine Aged Out Pap Testing Discontinued HPV Testing Discontinued Data reviewed Weight graph ASSESSMENT/PLAN: 1. Overweight (BMI 25.0-29.9) - ICD9: 278.02, ICD10: E66.3 Recommend healthy diet and exercise as able - QSYMIA 15 MG-92 MG CAPSULE, EXTENDED RELEASE Follow up in 3 months. I agree with the Chief Complaint, ROS, and Past Histories independently gathered by the clinical administrative support assistant and the remaining scribed note accurately describes my personal service to the patient. Medical Decision Making: Problems: Low: Stable chronic illness Risk: Moderate: Drug management Medical Decision Making Level: 3 - Low Laura Robertson MD The documentation for this note was completed by Rae Sheth MA acting as scribe for Laura Robertson MD. January 14, 2024 4:14 PM. Rae Sheth MA documented in this encounterPrem[facility] Telephone encounter Note * Telephone Encounter - Anayeli Ng APRN.BUILDING MAINTENANCE SUPERVISOR - 01/13/2024 7:52 AM EDT The following approved medication requests have been transmitted electronically. Requested Prescriptions Pending Prescriptions Disp Refills phentermine-topiramate ER (QSYMIA) 15-92 mg 24 Hr Capsule 30 capsule 2 Sig: Take 1 capsule by mouth once daily Anayeli Ng APRN.CNP PDMP website checked and validated. All prescriptions have been APPROPRIATELY filled. No suspiciousactivity was identified. 01/13/2024 by Anayeli Ng APRN.CNP [facility]05-08-[facility]24 Miscellaneous Notes* Telephone Encounter - Anayeli Ng APRN.CNP - 01/13/2024 7:52 AM EDT The following approved medication requests have been transmitted electronically. Requested Prescriptions Pending Prescriptions Disp Refills phentermine-topiramate ER (QSYMIA) 15-92 mg 24 Hr Capsule 30 capsule 2 Sig: Take 1 capsule by mouth once daily Anayeli Ng APRN.CNP PDMP website checked and validated. All prescriptions have been APPROPRIATELY filled. No suspiciousactivity was identified. 01/13/2024 by Anayeli Ng APRN.CNP * Telephone Encounter - Anabel Pace OCCA - 01/13/2024 7:28 AM EDT Patient has been identified by name and date of : Yes Patient phones for refill(s): Requested Prescriptions Pending Prescriptions Disp Refills phentermine-topiramate ER (QSYMIA) 15-92 mg 24 Hr Capsule 30 capsule 2 Sig: Take 1 capsule by mouth once daily Date of last office visit in primary care: 10/16/2023 Date of next office visit in primary care: 01/14/2024 Please advise. Thank you. UYEN Almeida. documented in this encounterPrem[facility]05-[facility]24 Telephone encounter Note * Telephone Encounter - Anabel Pace OCCA - 01/13/2024 7:28 AM EDT Patient has been identified by name and date of : Yes Patient phones for refill(s): Requested Prescriptions Pending Prescriptions Disp Refills phentermine-topiramate ER (QSYMIA) 15-92 mg 24 Hr Capsule 30 capsule 2 Sig: Take 1 capsule by mouth once daily Date of last office visit in primary care: 10/16/2023 Date of next office visit in primary care: 01/14/2024 Please advise. Thank you. UYEN Almeida. [facility]04-22-[facility] History of Present illness Narrative* Nydia Wade PA-C - 12/28/2023 3:21 PM EDTAssociated Order(s): Large Joint Arthro/Inj: R knee joint; Large Joint Arthro/Inj: L knee joint Post-Procedure Diagnose(s): Bilateral primary osteoarthritis of knee Nydia Wade PA-C Department of Orthopaedics Orthopaedics [address] [place] [id number] Dept: [phone] December 28, 2023 SUBJECTIVE: CHIEF COMPLAINT: New and Knee Pain of the Right Knee and New and Knee Pain of the Left Knee HPI: Ms. Mariam Minaya is a 63 year old female. She presents today with bilateral knee pain,R>L, that has been present for the past 10 months. Today she rates her pain an 8 on a scale of 0 to 10 at rest. The pain is worse with walking, driving and sleeping. She takes gabapentin and tylenol for the pain with some relief. She denies any recent injury, weakness or locking/catching. She does note that her right knee feels like it wants to give out on her. She has previously undergone left knee arthroscopy. Of note she has RA ans is on infusions of rituxan, managed by rheumatology. Past Medical History: PAST MEDICAL HISTORY Diagnosis Date Astigmatism, regular 12/22/2015 Chronic bilateral low back pain with sciatica 12/10/2015 Chronic kidney insufficiency, stage 3 (moderate) (HCC) 04/06/2018 Encounter for gynecological examination 05/03/2019 [facility]. 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 RA (rheumatoid arthritis) (HCC) + RF, +CCP OVERLAP PsA (+NAIL disease, dactylitis, axial inflammatory sx) Sjogren's syndrome (HCC) Neg SSA SSB in January 2009 Thyroid cancer (HCC) 09/07/[address] Maldonado removed, radioactive iodine ablation. papillary Vitamin D deficiency Past Surgical History: PAST SURGICAL HISTORY Procedure Laterality Date BREAST AUGMENTATION W/PROSTHETIC IMPLANT 2000 bilateral implants BX BREAST PERC NEED W/GUID 10/29/11 U/S needle core left axillary LN COLONOSCOPY FLX DX W/COLLJ SPEC WHEN PFRMD 09/07/2010 Colonoscopy, repeat 10 yrs EGD TRANSORAL BIOPSY SINGLE/MULTIPLE 11/06/06 Hiatal hernia, gastritis, retained food ESOPHAGOGASTRODUODENOSCOPY TRANSORAL DIAGNOSTIC EGD ESOPHAGOGASTRODUODENOSCOPY TRANSORAL DIAGNOSTIC 03/15/2015 EGD FNA (FINE NEEDLE ASPIRATION) 10/15/06 U/S FNA right thyroid nodule FNA WITH IMAGING 09/22/11 U/S FNA left axillary mass KNEE ARTHROSCOPY Left 2009 LIG/TRNSXJ FLP TUBE ABDL/VAG APPR UNI/BI Tubal ligation NEUROPLASTY &/TRANSPOS MEDIAN NRV CARPAL TUNNE Left 05/30/16 Carpal tunnel decomp NEUROPLASTY &/TRANSPOS MEDIAN NRV CARPAL TUNNE Right 09/26/2016 Carpal tunnel decomp PAST SURGICAL HISTORY OF 2010 removal of implants & replace & pannilectomy SYNOVECTOMY EACH 1999 left wrist THYROIDECTOMY TOTAL/COMPLETE 11/10/06 TONSILLECTOMY & ADENOIDECTOMY <AGE 12 Tonsillectomy VAGINAL HYSTERECTOMY UTERUS 250 GM/< 2004 Hysterectomy, vaginal Family History: FAMILY HISTORY Problem Relation Age of Onset Cancer Father None Mother Diabetes Brother from type I dx/d age 9 Breast Cancer Sister Thyroid Sister cancer Diabetes Grandchild Type I age 8 Social History: Social History Tobacco Use Smoking status: Never Smokeless tobacco: Never Vaping Use Vaping Use: Never used Substance Use Topics Alcohol use: No Comment: rare ; deo. wine Drug use: No Medications: Current Outpatient Medications Medication Sig gabapentin (NEURONTIN) 300 mg capsule Take 1 capsule by mouth three times a day for 90 days. Take with 600 mg of Gabapentin phentermine-topiramate ER (QSYMIA) 15-92 mg 24 Hr Capsule Take 1 capsule by mouth once daily triamcinolone (KENALOG) 0.025 % cream Apply to affected area two times a day. levothyroxine (SYNTHROID) 125 mcg tablet Take 1 tablet by mouth once daily. Take on empty stomach. For Thyroid gabapentin (NEURONTIN) 600 mg tablet Take 1 tablet by mouth three times a day for 180 days. hydrOXYchloroQUINE (PLAQUENIL) 200 mg tablet Take 1 and a half tablets by mouth once daily. Cholecalciferol, Vitamin D3, 50 mcg (2,000 unit) cap Take 1 capsule by mouth twice daily. polyethylene glycol 3350 (MIRALAX) 17 gram/dose powder 17gm in 8oz daily until stools regular (for constipation) vitamin b complex tab Take 1 tablet by mouth once daily. predniSONE (DELTASONE) 10 mg tablet TAKE BY MOUTH WITH FOOD. TAKE IN THE MORNING. TAKE 3 TABLETS DAILY FOR 1 WEEK, THEN 2 TABLETS DAILY FOR 1 WEEK, THEN 1 TABLET DAILY FOR 1 WEEK, THEN STOP (Patient not taking: Reported on 12/28/2023) No current facility-administered medications for this visit. Allergies: Flovent [Fluticasone], Amicar [Aminocaproic Acid], Humira [Adalimumab], Tessalon [Benzonatate], Albuterol, and Methotrexate ROS: General: negative for fatigue, malaise, weight loss/gain Musculoskeletal: see HPI Psych: no depression, anxiety OBJECTIVE: Ms. Mariam Minaya is a pleasant 63 year old in no apparent distress. Gen:There were no vitals taken for this visit. nl development, non obese, no deformities ENT: Normocephalic, normal hearing, moist mucosa CV: Pulses:DP/PT= 2+ and symmetric, capillary refill < 2 secs, no peripheral edema/varicosities Skin: no rash, bruising or lesions. Good turgor. Psych: cooperative and appropriate, alert and oriented x 3, good mood and affect. Musculoskeletal: bilateral hips and ankles FROM without pain or limitation. RT Knee: Alignment: Varus deformity, Correctable Active Extension 0 and Active Flexion 90 Extension lag: No Pain with ROM: Yes Effusion: Slight Erythema: No Ecchymosis: No Tender to the palpation of Medial femoral condyle, Medial joint line, and medial and lateral patellar facet Pain with patellar compression: No Stability: Anterior/Posterior stable and Varus/Valgus stable Patellofemoral crepitus: Yes Quad Atrophy: No LT Knee: Alignment: Varus deformity, Correctable Active Extension 0 and Active Flexion 100 Extension lag: No Pain with ROM: Yes Effusion: Slight Erythema: No Ecchymosis: No Tender to the palpation of Medial joint line Pain with patellar compression: No Stability: Anterior/Posterior stable and Varus/Valgus stable Patellofemoral crepitus: Yes Quad Atrophy: No IMAGING: Images taken today and to my interpretation show severe bilateral medial joint space narrowing. Full imaging report available in Epic. ASSESSMENT: M17.0 Bilateral primary osteoarthritis of knee (primary encounter diagnosis) PLAN: Reviewed images taken today. Discussed treatment options for osteoarthritis including otc anti-inflammatories, prescription anti-inflammatories, weight loss, bracing, physical therapy, and corticosteroid injections. Bilateral knee corticosteroid injections agreed upon and administered today. Patient agreeable with plan and will follow up as needed. PROCEDURE: Large Joint Arthro/Inj: R knee joint Informed Consent Consent Obtained: Verbal [place] Protocol A moment to CARE was completed. SIGN IN Personnel directly involved with the procedure wore the appropriate PPE. Special Equipment: N/A Patient/Surrogate Stated/Verified: Patient name, Date of , Relevant allergies and Intended procedure TIME OUT Intended patient and procedure match the source document(s). Consent documented and matches the intended procedure. Relevant labs, photos, and/or imaging studies have been reviewed. Correct side/site marked and visible. Medications required for procedure verified. No fire risk assessment and interventions applicable. No implant(s) inserted. 12/28/2023 3:58 PM The procedure site was prepped in the usual sterile fashion. Site: R knee joint Medications: 12 mg betamethasone acetate-betamethasone sodium phosphate 6 mg/mL Anesthetics: 3 mL lidocaine (PF) 10 mg/mL (1 %) Outcome: Tolerated well, no immediate complications Post-injection instructions were reviewed with the patient and the patient voiced understanding of these instructions. SIGN OUT No instruments, equipment or retained foreign bodies applicable. Large Joint Arthro/Inj: L knee joint Informed Consent Consent Obtained: Verbal [place] Protocol A moment to CARE was completed. SIGN IN Personnel directly involved with the procedure wore the appropriate PPE. Special Equipment: N/A Patient/Surrogate Stated/Verified: Patient name, Date of , Relevant allergies and Intended procedure TIME OUT Intended patient and procedure match the source document(s). Consent documented and matches the intended procedure. Relevant labs, photos, and/or imaging studies have been reviewed. Correct side/site marked and visible. Medications required for procedure verified. No fire risk assessment and interventions applicable. No implant(s) inserted. 12/28/2023 3:58 PM The procedure site was prepped in the usual sterile fashion. Site: L knee joint Medications: 12 mg betamethasone acetate-betamethasone sodium phosphate 6 mg/mL Anesthetics: 3 mL lidocaine (PF) 10 mg/mL (1 %) Outcome: Tolerated well, no immediate complications Post-injection instructions were reviewed with the patient and the patient voiced understanding of these instructions. SIGN OUT No instruments, equipment or retained foreign bodies applicable. FOLLOW UP INSTRUCTIONS: As needed Nydia Wade PA-C documented in this encounterPrem[facility] History of Present illness Narrative* Demetria Miranda Tech - 12/28/2023 2:40 PM EDT Radiology Service Progress Note PATIENT NAME: Mariam Minaya DATE OF SERVICE: December 28, 2023 TIME: 3:20 PM PATIENT IDENTITY VERIFICATION COMPLETED USING TWO (2) IDENTIFIERS: Name and Date of confirmedby patient verbally. FALL SCREENING: Has the patient had 2 falls in the last year or 1 fall with injury or currently using an Ambulatory Assistive Device (Walker, Cane, Wheelchair, Crutches, etc.)? No PATIENT GENDER DATA: Female. status: : No status: NO. PATIENT RELEVANT IMPLANT DATA REVIEWED: Not Applicable PATIENT PRESENTS WITH AN IMPLANTABLE OR ATTACHED ADMINISTRATIVE SUPPORT ASSISTANT: No RADIOLOGY DEPARTMENT: General X-ray: Exam(s) Completed: Lower Extremity X- Ray(s): Knee, AP / Lat / Tunne / Merchant Bilateral and Wt. Bearing PERIPHERAL IV DATA: Not applicable SIGNED BY: Aspen Lozano December 28, 2023 3:20 PM documented in this encounterPremier Health [facility]04-22-2024 NoteHNO ID: [id number] Author: DEMETRIA MIRANDA Tech Service: Radiology Author Type: Rand Sewer Type: Progress Notes Filed: 12/28/2023 15:21 Note Text: Radiology Service Progress Note PATIENT NAME: Maraim Minaya DATE OF SERVICE: December 28, 2023 TIME: 3:20 PM PATIENT IDENTITY VERIFICATION COMPLETED USING TWO (2) IDENTIFIERS: Name and Date of confirmed by patient verbally. FALL SCREENING: Has the patient had 2 falls in the last year or 1 fall with injury or currently using an Ambulatory Assistive Device (Walker, Cane, Wheelchair, Crutches, etc.)? No PATIENT GENDER DATA: Female. status: : No status: NO. PATIENT RELEVANT IMPLANT DATA REVIEWED: Not Applicable PATIENT PRESENTS WITH AN IMPLANTABLE OR ATTACHED ADMINISTRATIVE SUPPORT ASSISTANT: No RADIOLOGY DEPARTMENT: General X-ray: Exam(s) Completed: Lower Extremity X-Ray(s): Knee, AP / Lat / Tunne / Merchant Bilateral and Wt. [place] PERIPHERAL IV DATA: Not applicable SIGNED BY: Aspen Lozano December 28, 2023 3:20 PMCleveland Clinic [facility] [id number] Miscellaneous Notes* Telephone Encounter - Salinas Samuel APRN.CNP - 10/20/2023 2:56 PM EST The following approved medication requests have been transmitted electronically. Requested Prescriptions Pending Prescriptions Disp Refills gabapentin (NEURONTIN) 300 mg capsule 90 capsule 2 Sig: Take 1 capsule by mouth three times a day for 90 days. Take with 600 mg of Gabapentin Salinas Samuel APRN.CNP documented in this encounterPremier [facility]12-14-2023 Instructions* Patient Instructions* Kinjal Flores RN - 08/20/2023 9:09 AM EST 01/20 Rituxan 300min 02/03 Rituxan 240min documented in this encounterPremier Health [facility]12-14-2023 History of Present illness Narrative* Kinjal Flores RN - 08/20/2023 8:26 AM EST Patient offered bathroom assistance throughout treatment? Yes PRE-INFUSION SCREENING Since your last infusion have you: Had any major change in your health? No Been to the emergency room? No Been hospitalized? No Had any infections? No Taken any antibiotics? No Had surgery or do you have upcoming surgery? No In the past 7 days have you had: Fevers/chills/night sweats? No New cough or cold symptoms (including sore throat)? No Nausea, vomiting, diarrhea? No Unusual swelling in your ankles or feet? No Burning/blood with urination or urinary frequency? No New weakness, numbness, stumbling, or falls? No New rash or open sores? No Messaged Dr. Alonzo regarding giving Reclast and Rituxan on same day. Dr. Alonzo prefers to separate by one day at least, but if pt had to, can receive on same day. Pt had reaction to last Reclast(muscle and bone pain). Informed pt of Dr. Alonzo's preference and she would like to receive both today. Pt opted to receive Reclast today d/t living 1 hour away, instructed to keep well hydrated and pt states she has Ultram and oxycodone if pain is too severe after Reclast. documented in this encounterPremier Health [facility]11-30-2023 Instructions* Patient Instructions* Kinjal Flores RN - 08/06/2023 12:34 PM EST documented in this encounterPremier Health [facility]11-30-2023 History of Present illness Narrative* Luana Sullivan RN - 08/06/2023 10:10 AM EST Okay to treat today with Hep B panel pending per secure chat message with Michelle Simpson CNP. PRE-INFUSION SCREENING Since your last infusion have you: Had any major change in your health? No Been to the emergency room? No Been hospitalized? No Had any infections? No Taken any antibiotics? No Had surgery or do you have upcoming surgery? No In the past 7 days have you had: Fevers/chills/night sweats? No New cough or cold symptoms (including sore throat)? No Nausea, vomiting, diarrhea? No Unusual swelling in your ankles or feet? No Burning/blood with urination or urinary frequency? No New weakness, numbness, stumbling, or falls? No New rash or open sores? No documented in this encounterPremier Health [facility] Center11-20-2023 Miscellaneous Notes* Telephone Encounter - Elyssa Elkins MA - 07/27/2023 11:24 AM EST Reclast IV treatment scheduled for 08/20/2023. Elyssa Elkins MA * Telephone Encounter - Jaymie Bernstein MA - 07/15/2023 1:57 PM EST Referral for Reclast placed. Patient is scheduling bone density at the desk. Reclast has been approved. Buster/Onco PSS: Please contact patient and assist with scheduling Reclast IV treatment due on or after 08/08/2023. Thanks Jaymie Bernstein MA * Telephone Encounter - Kenneth Alonzo MD - 07/15/2023 1:45 PM EST Please submit for request approval due on or after 08/08/2023. Please let her know she needs to schedule a bone density scan as well for September, is in documented in this encounterPremier Health [facility] Center11-13-2023 Miscellaneous Notes* Telephone Encounter - Salinas Samuel APRN.CNP - 07/20/2023 1:28 PM EST The following approved medication requests have been transmitted electronically. Requested Prescriptions Pending Prescriptions Disp Refills gabapentin (NEURONTIN) 600 mg tablet 90 tablet 5 Sig: Take 1 tablet by mouth three times a day for 180 days. gabapentin (NEURONTIN) 300 mg capsule 90 capsule 2 Sig: Take 1 capsule by mouth three times a day for 90 days. Take with 600 mg of Gabapentin Salinas Samuel APRN.CNP * Telephone Encounter - Rae Sheth Ma - 07/20/2023 1:22 PM EST Last office visit: 02/16/23 F/u scheduled: none Rae Sheth Ma * Telephone Encounter - Sharon Da Silva - 07/20/2023 12:14 PM EST Patient has been identified by name and date of : Yes Requested Prescriptions Pending Prescriptions Disp Refills gabapentin (NEURONTIN) 600 mg tablet 90 tablet 2 Sig: Take 1 tablet by mouth three times a day for 180 days. gabapentin (NEURONTIN) 300 mg capsule 90 capsule 2 Sig: Take 1 capsule by mouth three times a day for 90 days. Take with 600 mg of Gabapentin RX INSTRUCTIONS: Patient aware RX will be sent to pharmacy. No need to notify patient. Sharon Bonilla documented in this encounterPremier Health [facility]11-08-2023 History of Present illness Narrative* Kenneth Alonzo MD - 07/15/2023 1:20 PM EST On 07/15/2023, I had the pleasure of evaluating Mariam Minaya in a [facility] for follow-up of seropositive RA HPI: To review, Mariam Minaya is a 62 year old female - Several years ago, diagnosed with RA by Dr. Pino Noble. Initially treated with HCQ 200mg bid and MTX 17.5mg PO weekly/FA (SSZ stopped for low WBC). MTX eventually stopped for high LFTs (and also had blood in urine while on MTX) - Humira with a significant injection site reaction - Later on HCQ 200mg/day and enbrel for several years. - In February 24, on HCQ 200mg bid and orencia - In Aug, reported feeling poorly with increased pain and swelling wrists, MCPs, PIPs, and DIPs. 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 Orencia switched to enbrel - In Apr, reported 40% improvement with enbrel - In Oct, reported not doing well. Had 75% improvement s/p Aug steroid course. Enbrel switched to simponi - In February, reported 5% improvement of joints with simponi - In Jun, reported not feeling as well as she'd wanted with simponi. Had needed pred in February, March and May with significant relief each time on pred. Advised to stop simponi, start actemra - In Aug, started reclast (08/08/22) with rxn (pain, vomiting, sweating). She had to go to the hospital for the severe pain, lasted 2 days and resolved after morphine/pain meds that she was given.Wasn't sure she wanted to continue. - In November, reported minimal 2% improvement in joints with actemra (had 45- 50% improvement withprior pred). Switched to rituxan - In January, s/p rituxan cycle 1 - In Feb, reported 35% improvement in joints with rituxan - Jun rituxan postponed for infection - Today, reports infection has pretty much cleared. To get rituxan later this month. Not on HCQ as she was told she needed the eye exam which she had done in Jun. Last dose before Feb. - No interim fracture, jaw pain or recent/plans for any invasive dental procedures. - Last plaquenil eye exam normal in Jun PAST MEDICAL HISTORY Diagnosis Date Astigmatism, regular 12/22/2015 Chronic bilateral low back pain with sciatica 12/10/2015 Chronic kidney insufficiency, stage 3 (moderate) (HCC) 04/06/2018 Encounter for gynecological examination 05/03/2019 [facility]. 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 RA (rheumatoid arthritis) (HCC) + RF, +CCP OVERLAP PsA (+NAIL disease, dactylitis, axial inflammatory sx) Sjogren's syndrome (HCC) Neg SSA SSB in January 2009 Thyroid cancer (HCC) 09/07/[address] Maldonado removed, radioactive iodine ablation. papillary Vitamin D deficiency PAST SURGICAL HISTORY Procedure Laterality Date BREAST AUGMENTATION W/PROSTHETIC IMPLANT 2000 bilateral implants BX BREAST PERC NEED W/GUID 10/29/11 U/S needle core left axillary LN COLONOSCOPY FLX DX W/COLLJ SPEC WHEN PFRMD 09/07/2010 Colonoscopy, repeat 10 yrs EGD TRANSORAL BIOPSY SINGLE/MULTIPLE 11/06/06 Hiatal hernia, gastritis, retained food ESOPHAGOGASTRODUODENOSCOPY TRANSORAL DIAGNOSTIC EGD ESOPHAGOGASTRODUODENOSCOPY TRANSORAL DIAGNOSTIC 03/15/2015 EGD FNA (FINE NEEDLE ASPIRATION) 10/15/06 U/S FNA right thyroid nodule FNA WITH IMAGING 09/22/11 U/S FNA left axillary mass KNEE ARTHROSCOPY Left 2009 LIG/TRNSXJ FLP TUBE ABDL/VAG APPR UNI/BI Tubal ligation NEUROPLASTY &/TRANSPOS MEDIAN NRV CARPAL TUNNE Left 05/30/16 Carpal tunnel decomp NEUROPLASTY &/TRANSPOS MEDIAN NRV CARPAL TUNNE Right 09/26/2016 Carpal tunnel decomp PAST SURGICAL HISTORY OF 2010 removal of implants & replace & pannilectomy SYNOVECTOMY EACH 1999 left wrist THYROIDECTOMY TOTAL/COMPLETE 11/10/06 TONSILLECTOMY & ADENOIDECTOMY <AGE 12 Tonsillectomy VAGINAL HYSTERECTOMY UTERUS 250 GM/< 2004 Hysterectomy, vaginal ALLERGIES Allergen Reactions Flovent [Fluticason* Rash Amicar [Aminocaproi* Rash Humira [Adalimumab] Hives welt at injection site Tessalon [Benzonata* Other: See Comments hypersensitive Albuterol Other: See Comments severe leg cramps Methotrexate Contraindication-Medical Surgical elevated liver enz MEDICATIONS: Current Outpatient Medications Medication Sig gabapentin (NEURONTIN) 300 mg capsule Take 1 capsule by mouth three times daily for 90 days. Take with 600 mg of Gabapentin gabapentin (NEURONTIN) 600 mg tablet Take 1 tablet by mouth three times daily for 30 days. levothyroxine (SYNTHROID) 125 mcg tablet Take 1 tablet by mouth once daily. Take on empty stomach. For Thyroid ergocalciferol 50,000 unit capsule (VITAMIN D2, DRISDOL) TAKE 1 CAPSULE BY MOUTH TWO TIMES A WEEK. Cholecalciferol, Vitamin D3, 50 mcg (2,000 unit) cap Take 1 capsule by mouth twice daily. polyethylene glycol 3350 (MIRALAX) 17 gram/dose powder 17gm in 8oz daily until stools regular (for constipation) vitamin b complex tab Take 1 tablet by mouth once daily. predniSONE (DELTASONE) 10 mg tablet TAKE BY MOUTH WITH FOOD. TAKE IN THE MORNING. TAKE 3 TABLETS DAILY FOR 1 WEEK, THEN 2 TABLETS DAILY FOR 1 WEEK, THEN 1 TABLET DAILY FOR 1 WEEK, THEN STOP (Patient not taking: Reported on 07/15/2023) furosemide (LASIX) 20 mg tablet Take 1 tablet by mouth once daily for 5 days. (Patient not taking: Reported on 07/15/2023) No current facility-administered medications for this visit. FAMILY HISTORY Problem Relation Age of Onset Cancer Father None Mother Diabetes Brother from type I dx/d age 9 Breast Cancer Sister Thyroid Sister cancer Diabetes Grandchild Type I age 8 SOCIAL HISTORY: Lives in [place] with . 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 CONSTITUTIONAL: Well-appearing, in NAD. SKIN: No rash. No sclerodactyly, calcinosis, telangiectasias, digital ulcers, or skin thickening. EYES: No scleral icterus or conjunctivitis ENT and Mouth: External ears normal. Nares normal. RESPIRATORY: Normal breath sounds, clear to auscultation. CARDIOVASCULAR: Regular rate and rhythm, no murmurs or rubs EXTREMITIES/LYMPH: No edema bilaterally NEURO: Awake, alert and oriented MUSCULOSKELETAL: JOINT APPEARANCE: Heberden's nodes present bilaterally. No erythema or warmth of any upper or lowerextremity joint. RANGE OF MOTION: Can close fists bilaterally. SWOLLEN JOINTS/SYNOVITIS: R 2nd MCP synovitis TENDER JOINTS: Tenderness to palpation of the bilateral wrists, MCPs, PIPs, knees, ankles and MTPs *Aug Widespread Pain Index: 13 (0-19) Symptoms Severity Scale: 9 (0-12) WPI>7 and SS Scale>5 OR WPI 3-6 and SS Scale >9 consistent with fibromyalgia LABORATORY: Component Latest Ref Rng & Units 05/20/2023 WBC 3.70 - 11.00 k/uL 6.10 RBC 3.90 - 5.20 m/uL 4.56 Hemoglobin 11.5 - 15.5 g/dL 13.1 Platelet Count 150 - 400 k/uL 291 Creatinine 0.58 - 0.96 mg/dL 0.77 eGFR >=60 mL/min/1.73m 87 AST 13 - 35 U/L 19 ALT 7 - 38 U/L 14 Albumin 3.9 - 4.9 g/dL 4.2 Component Latest Ref Rng & Units 10/17/2021 Hep B Core Ab, Total Negative Negative Hep C Antibody IA Negative Negative Hep B Surface Ag Negative Negative Hep B Surface Ab, Qual Negative Negative Component Latest Ref Rng & Units 08/13/2020 c-ANCA Fluorescence Negative Negative p-ANCA Fluorescence Negative Negative Proteinase-3 Antibody <1.0 AI <0.2 Myeloperoxidase Antibody (MPO) <1.0 AI <0.2 Interpretation (ANCA) Equivocal staining seen on the ethanol (indirect immunofluorescence screen) slide . . . Staff Review (ANCA) Reviewed by Alexi Liu, Ph.D, D(ABMLI) Myeloperoxidase AutoAb <1.0 AI Duplicate request Proteinase 3 Antibody <1.0 AI Duplicate request Rheumatoid Factor <16 IU/mL 45 (H) CCP Antibody, IgG <20 Units >250 (H) *Oct 26 +RF 88 with unremarkable SSA, SSB, Jo1, PACKAGING CLERK, Sm, centromere, Scl *Sep 25 +CCP>250 and +MARCO ANTONIO with unremarkable wbc, hgb, plt, cr, alt, ast, hep b/c and quantiferongold *2007 positive RF 35, CCP>100 STUDIES: *December CT chest- No CT evidence of interstitial lung disease. *Sep DXA- Osteopenia in the lumbar spine and left femoral neck. LUMBAR SPINE: The bone mineral density from L1 through L4 is 0.879 grams per square centimeter which yields a T-score of -1.5. LEFT HIP: The bone mineral density of the total region of the hip is 0.840 grams per square centimeter which yields a T-score of -0.8. LEFT FEMORAL NECK: The bone mineral density of the femoral neck is 0.631 grams per square centimeter which yields a T-score of -2.0. 10-year Fracture Risk (FRAX): Major osteoporotic fracture risk 19% Hip fracture risk 3.0% *Aug xray hands- SOFT TISSUE SWELLING ADJACENT TO THE RIGHT SECOND MCP JOINT HAS SLIGHTLY INCREASED AND THERE IS INCREASED SOFT TISSUE SWELLING ADJACENT TO THE DISTAL RIGHT ULNA SMALL REMOTE APPEARING EROSIONS THAT WOULD BE COMPATIBLE WITH THE HISTORY OF RHEUMATOID ARTHRITIS APPEAR UNCHANGED. NO NEW EROSIONS *May xray L tib/fibula- Mild soft tissue swelling with no radiographic evidence of acute osseous injury. *February CXR- no acute changes IMPRESSION and PLAN: 1. Seropositive erosive RA: Wrist and MCP pain/swelling in the setting of RF and CCP positivity. Has been on numerous medications: HCQ, MTX (high LFTs, blood in urine), humira (injection site reaction), enbrel (lost efficacy), orencia (ineffective), actemra SC (ineffective) and simponi (ineffective). December CT chest without ILD (follows with Dr. Nilam Banda of pul). January ruxience with improvement. - Continue HCQ 300mg/day along with routine ophthalmology follow-up (last normal in Jun) - Continue ruxience, approved until 12/14/23. Next beacon cycle signed. 2. Osteopenia: No hx of fracture. Sep DXA with high FRAX. In Aug, started reclast s/p SE like pain needing hospital visit. - Next reclast due on or after 08/08/23. Updated signed beacon tx plan. Given tramadol x10 tabs for rxn pain only - Check labs. Notify of results via [facility] - Calcium/vit D supplementation - Check DEXA in Sep. Notify of results via [facility] [employer] [facility] 3. Fibromyalgia: Meets criteria for this as above. - Continue monitoring 4. General health maintenance: Defers vaccines, states she gets sick from them for a while - Advised to continue follow-up with PCP for routine health maintenance and malignancy screening Follow-up in 5, 10 & 20 months with Michelle and 15 months with me. Thank you for allowing me to participate in the care of your patient. Kenneth Alonzo MD documented in this encounterPremier [facility]11-07-2023 Miscellaneous Notes* Telephone Encounter - Jaymie Bernstein MA - 07/14/2023 4:15 PM EST Rituxan treatment scheduled 08/06 * Telephone Encounter - Elyssa Elkins MA - 07/01/2023 3:18 PM EDT Patient is notified of message below and verbalized understanding of instructions. Buster/Onco PSR please contact patient and assist with rescheduling Rituximab IV treatment. Thanks, Elyssa Elkins MA * Telephone Encounter - Kenneth Alonzo MD - 07/01/2023 3:08 PM EDT Yes, I absolutely agree with that plan. Hope she feels better soon. Please let the infusion team know too. Thanks. * Telephone Encounter - Bettina Galeano - 07/01/2023 2:20 PM EDT Patient called and stated that she has cold chills sweating, cough and body aches. She stated that she is going to cancel and reschedule her treatment. * Telephone Encounter - Jaymie Bernstein MA - 07/01/2023 2:20 PM EDT Attempted to reach patient. No answer. LMTCB. PSR please relay message as written below. Please document and route back to our pool. Thank you Jaymie * Telephone Encounter - Kenneth Alonzo MD - 07/01/2023 2:11 PM EDT If she feels any symptoms of an infection including fever, sore throat, nasal congestion, cough etc, would advise postponing the infusion until the infection resolves, by at least 2 weeks as the rituxan lowers immunity and can make infections harder to fight. Thanks. * Telephone Encounter - Jaymie Bernstein MA - 07/01/2023 1:58 PM EDT Attempted to reach patient to get more information on her symptoms. No answer. LMTCB. * Telephone Encounter - Estella Nash - 07/01/2023 1:42 PM EDT Patient calling stating she is not feeling well and would like to know what to do tomorrow for her infusion. Please call patient back and advise at [phone] documented in this encounterPremier Health [facility] Center09-20-2023 Miscellaneous Notes* Telephone Encounter - Michelle Simpson APRN.CNP - 05/27/2023 11:13 AM EDT The following approved medication requests have been transmitted electronically. Requested Prescriptions Signed Prescriptions Disp Refills predniSONE (DELTASONE) 10 mg tablet 42 tablet 0 Sig: TAKE BY MOUTH WITH FOOD. TAKE IN THE MORNING. TAKE 3 TABLETS DAILY FOR 1 WEEK, THEN 2 TABLETS DAILY FOR 1 WEEK, THEN 1 TABLET DAILY FOR 1 WEEK, THEN STOP Authorizing Provider: MICHELLE SIMPSON APRN.BUILDING MAINTENANCE SUPERVISOR * Telephone Encounter - Jaymie Bernstein MA - 05/27/2023 11:06 AM EDT Patient is having a flare up mainly in her knees and is requesting prednisone taper send to [facility] in [place]. Pain level 6/10. Patient is aware to avoid NSADs medications while on steroids. Acetaminophen, or Tylenol, can be used while on prednisone * Telephone Encounter - Jaymie Bernstein MA - 05/25/2023 11:51 AM EDT Patient has been identified by name and date of : Yes RX INSTRUCTIONS: Patient aware RX will be sent to pharmacy. No need to notify patient. Attempted to reach patient to clarify if she requesting prednisone taper. LAST APPOINTMENT: 02/12/2023 UPCOMING APPOINTMENT: 07/15/2023 LABS: Hemoglobin (g/dL) Date Value 05/20/2023 13.1 10/17/2021 12.7 Hematocrit (%) Date Value 05/20/2023 39.2 10/17/2021 38.5 WBC (k/uL) Date Value 05/20/2023 6.10 10/17/2021 6.15 Platelet Count (k/uL) Date Value 05/20/2023 291 10/17/2021 322 AST Date Value Ref Range Status 05/20/2023 19 13 - 35 U/L Final ALT Date Value Ref Range Status 05/20/2023 14 7 - 38 U/L Final Creatinine Date Value Ref Range Status 05/20/2023 0.77 0.58 - 0.96 mg/dL Final No results found for: URICACID Jaymie Bernstein MA documented in this encounterPremier Health [facility] Center08-28-2023 Miscellaneous Notes* Telephone Encounter - Jaymie Bernstein MA - 05/04/2023 8:18 AM EDT Patient has been identified by name and date of : Yes RX INSTRUCTIONS: Patient aware RX will be sent to pharmacy. No need to notify patient. Spoke with patient. Patient is having flare up and requesting prednisone. Patient states she is hurting in her hands, feet, knees. Patient level 04/16 LAST APPOINTMENT: 02/12/2023 UPCOMING APPOINTMENT: 07/15/2023 LABS: Hemoglobin (g/dL) Date Value 03/04/2023 11.9 10/17/2021 12.7 Hematocrit (%) Date Value 03/04/2023 35.4 10/17/2021 38.5 WBC (k/uL) Date Value 03/04/2023 7.87 10/17/2021 6.15 Platelet Count (k/uL) Date Value 03/04/2023 360 10/17/2021 322 AST Date Value Ref Range Status 11/08/2022 23 13 - 35 U/L Final ALT Date Value Ref Range Status 11/08/2022 9 7 - 38 U/L Final Creatinine Date Value Ref Range Status 03/04/2023 1.00 (H) 0.58 - 0.96 mg/dL Final No results found for: URICACID Jaymie Bernstein MA documented in this encounterPremier Health [facility] Center08-08-2023 Miscellaneous Notes* Telephone Encounter - Jaymie Bernstein MA - 04/14/2023 4:31 PM EDT Attempted to reach patient. No answer. Message below left on patient's voicemail. Jaymie Bernstein MA * Telephone Encounter - Michelle Simpson APRN.PENNY - 04/14/2023 4:29 PM EDT Please advise the patient that script was sent. Please advise her to avoid NSAIDS (motrin, ibuprofen, aleve, etc.) while taking the prednisone. The following approved medication requests have been transmitted electronically. Requested Prescriptions Signed Prescriptions Disp Refills predniSONE (DELTASONE) 10 mg tablet 42 tablet 0 Sig: Take by mouth with food. Take in the morning. Take 3 tablets daily for 1 week, then 2 tablets daily for 1 week, then 1 tablet daily for 1 week, then stop Authorizing Provider: MICHELLE SIMPSON APRN.PENNY * Telephone Encounter - Azra Mon - 04/14/2023 4:12 PM EDT Patient calling to say that she is having a flare up. She is requesting medication. Please prescribe prednisone for flare up. Preferred pharmacy: [facility] [place] documented in this encounterPremier Health [facility] Center07-28-2023 Miscellaneous Notes* Telephone Encounter - Maris Myles LPN - 04/03/2023 11:42 AM EDT Patient notified of recommendation from PENNY, verbalizes understanding of instructions. Maris Myles LPN * Telephone Encounter - Salinas Samuel APRN.PENNY - 04/03/2023 11:30 AM EDT Please let the patient know that I sent a refill of the her gabapentin 300 mg to be taken 3 times aday with the 600 mg. I also called in a Medrol Dosepak for her sciatica. I do not have any openingstoday on my schedule, if she is not feeling better next week she should follow-up with 1 of us. The following approved medication requests have been transmitted electronically. Requested Prescriptions Signed Prescriptions Disp Refills gabapentin (NEURONTIN) 300 mg capsule 90 capsule 2 Sig: Take 1 capsule by mouth three times daily for 90 days. Take with 600 mg of Gabapentin Authorizing Provider: SALINAS SAMUEL methylPREDNISolone (MEDROL, VICENTE,) 4 mg Dose-Pack 21 tablet 0 Sig: Follow dosing instructions, take with food. Authorizing Provider: SALINAS SAMUEL APRN.CNP * Telephone Encounter - Jaki Duff LPN - 04/03/2023 10:51 AM EDT Patient calling she had seen Anayeli Ng CLERICAL ADMINISTRATOR on 02/16 for sciatica and started on Gabapentin. On 02/19 Dr Robertson increased her Gabapentin dose to 300 mg one three times daily. Then on 02/27 Hernesto CLERICAL ADMINISTRATOR increased her Gabapentin dose to 600 mg three times daily. Patient said she was told to take the 600 mg with the 300 mg taking 900 mg three times daily, but no notation in her chart to do t hat. Patient was calling for another rx for the Gabapentin 300 mg one three times daily rx. Patientasking for another Prednisone rx, said she can hardly walk with sciatica pain. She had completed previous Prednisone rx 2 weeks ago. Advised patient she would need to be seen for evaluation. Patient wants the rx and not come in for appt. Patient uses [facility] for her pharmacy. Please advise documented in this encounterPremier Health [facility] Center07-14-2023 Miscellaneous Notes* Telephone Encounter - Anayeli Izquierdo RPh - 03/20/2023 2:33 PM EDT Pharmacist Refill Authorization Review Name: Mariam Minaya Date: 03/20/2023 Time: 2:33 PM Refill authorization request(s) received via patient request and reviewed under effective consult agreement. Upon review, did confirm that an active patient- provider relationship exists and that the prescriber is a participating physician under the consult agreement. Last office visit in this department: 03/06/2023 Anayeli Ng APRN.CNP Last [facility] visit in this department: 12/03/2022 PodAlly lopez APRN.CNP Next appointment in this department: Visit date not found The medication(s) fall under the following categories: Category 3: Medication(s) does not qualify for pharmacist renewal due to medication excluded from collaborative practice agreement. Renewal request sent to provider for review. Requested Prescriptions Pending Prescriptions Disp Refills predniSONE (DELTASONE) 10 mg tablet 39 tablet 0 Sig: Take 6 tabs for 3 days, then 4 tabs for 3 days, then 2 tabs for 3 days then 1 tab for 3 days with food. Number of refills approved in this encounter: 0 Number of refills forwarded to provider for review: 1 Number of refills denied in this encounter: 0 Anayeli Izquierdo RPh documented in this encounterPrem[facility]30[facility] Instructions* Patient Instructions* Anayeli Ng APRN.CNP - 03/06/2023 11:50 AM EDT Start prednisone taper, take with food. May use Lasix 20 mg daily for 3 days as needed for leg swelling. Elevate the legs when possible Schedule appointments for vascular testing and vascular medicine. Red flag symptoms go to ER Follow up pending test results or sooner as needed. documented in this encounterPremier Health [facility]06-30-2023 History of Present illness Narrative* Anayeli Ng APRN.CNP - 03/06/2023 11:40 AM EDT This is a 62 year old female who presents today with: Patient presents with: Acute Visit: Left leg swelling HISTORY OF PRESENT ILLNESS: Mariam Minaya is a 62 year old female. Patient presents with: Acute Visit: Left leg swelling Here in the office for leg swelling. Was seen in [facility] on 03/04/23, ultrasound was negative for DVT. Left lower leg swelling started last week. No injury to the area. Has not been doing any extensive activity. Left ankle hurts with walking. No SOB or difficulty breathing. BMP and CBC all relatively normal. BNP was mildly elevated at 200. Follows with rheumatology for rheumatoid arthritis, Sjogren's syndrome, and psoriasis. PAST MEDICAL HISTORY: PAST MEDICAL HISTORY Diagnosis Date Astigmatism, regular 12/22/2015 Chronic bilateral low back pain with sciatica 12/10/2015 Chronic kidney insufficiency, stage 3 (moderate) (HCC) 04/06/2018 Encounter for gynecological examination 05/03/2019 Seeing the [facility]. 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 RA (rheumatoid arthritis) (HCC) + RF, +CCP OVERLAP PsA (+NAIL disease, dactylitis, axial inflammatory sx) Sjogren's syndrome (HCC) Neg SSA SSB in January 2009 Thyroid cancer (HCC) 09/07/[address] Maldonado removed, radioactive iodine ablation. papillary Vitamin D deficiency PAST SURGICAL HISTORY Procedure Laterality Date BREAST AUGMENTATION W/PROSTHETIC IMPLANT 2000 bilateral implants BX BREAST PERC NEED W/GUID 10/29/11 U/S needle core left axillary LN COLONOSCOPY FLX DX W/COLLJ SPEC WHEN PFRMD 09/07/2010 Colonoscopy, repeat 10 yrs EGD TRANSORAL BIOPSY SINGLE/MULTIPLE 11/06/06 Hiatal hernia, gastritis, retained food ESOPHAGOGASTRODUODENOSCOPY TRANSORAL DIAGNOSTIC EGD ESOPHAGOGASTRODUODENOSCOPY TRANSORAL DIAGNOSTIC 03/15/2015 EGD FNA (FINE NEEDLE ASPIRATION) 10/15/06 U/S FNA right thyroid nodule FNA WITH IMAGING 09/22/11 U/S FNA left axillary mass KNEE ARTHROSCOPY Left 2009 LIG/TRNSXJ FLP TUBE ABDL/VAG APPR UNI/BI Tubal ligation NEUROPLASTY &/TRANSPOS MEDIAN NRV CARPAL TUNNE Left 05/30/16 Carpal tunnel decomp NEUROPLASTY &/TRANSPOS MEDIAN NRV CARPAL DAE Right 09/26/2016 Carpal tunnel decomp PAST SURGICAL HISTORY OF 2010 removal of implants & replace & pannilectomy SYNOVECTOMY EACH 1999 left wrist THYROIDECTOMY TOTAL/COMPLETE 11/10/06 TONSILLECTOMY & ADENOIDECTOMY <AGE 12 Tonsillectomy VAGINAL HYSTERECTOMY UTERUS 250 GM/< 2003 Hysterectomy, vaginal ALLERGIES Flovent [Fluticasone], Amicar [Aminocaproic Acid], Humira [Adalimumab], Tessalon [Benzonatate], Albuterol, and Methotrexate MEDICATIONS Current Outpatient Medications Medication Sig gabapentin (NEURONTIN) 600 mg tablet Take 1 tablet by mouth three times daily for 30 days. levothyroxine (SYNTHROID) 125 mcg tablet Take 1 tablet by mouth once daily. Take on empty stomach. For Thyroid ergocalciferol 50,000 unit capsule (VITAMIN D2, DRISDOL) TAKE 1 CAPSULE BY MOUTH TWO TIMES A WEEK. Cholecalciferol, Vitamin D3, 50 mcg (2,000 unit) cap Take 1 capsule by mouth twice daily. polyethylene glycol 3350 (MIRALAX) 17 gram/dose powder 17gm in 8oz daily until stools regular (for constipation) vitamin b complex tab Take 1 tablet by mouth once daily. No current facility-administered medications for this visit. FAMILY HISTORY Problem Relation Age of Onset Cancer Father None Mother Diabetes Brother from type I dx/d age 9 Breast Cancer Sister Thyroid Sister cancer Diabetes Grandchild Type I age 8 Social History Tobacco Use Smoking status: Never Smokeless tobacco: Never Vaping Use Vaping Use: Never used Substance Use Topics Alcohol use: No Comment: rare ; deo. wine Drug use: No REVIEW OF SYSTEMS GENERAL: No weight loss, malaise or fevers/chills HEENT: Negative for frequent or significant headaches, No changes in hearing or vision. NECK: Negative for lumps, goiter, pain and significant neck swelling RESPIRATORY: Negative for cough, hemoptysis, wheezing, dyspnea or shortness of breath CARDIOVASCULAR: Negative for chest pain, leg swelling, orthopnea, or palpitations + Leg Swelling GI: No nausea, vomiting, or diarrhea/constipation. No hematochezia/melena. No heartburn or reflux symptoms. : No history of dysuria, frequency or incontinence MUSCULOSKELETAL: Negative for joint pain or swelling. SKIN: Negative for lesions, rash, and itching ENDOCRINE: Negative for cold or heat intolerance, polyuria, polydipsia and goiter NEURO: No history of headaches, syncope, paralysis, seizures or tremors MOOD: Negative for depression, anxiety, or suicidal ideation. EXAM: BP 142/90 Pulse 66 Resp 16 Wt 81.6 kg (180 lb) SpO2 96% BMI 29.28 kg/m PHYSICAL EXAM: General Appearance: Well appearing, alert, in no acute distress, well-hydrated, well nourished. Skin: + Scant erythema, consistent with possible stasis dermatitis on the left lower leg near ankle. Head: Normocephalic, no masses, lesions, tenderness or abnormalities. Eyes: Anicteric sclera. Extraocular movements are intact. Extremities: +2 non pitting edema noted to left lower leg, very tender to palpation. Musculoskeletal: No joint swelling, deformity, or tenderness. Peripheral Pulses: Normal, Capillary refill <2secs, strong peripheral pulses, Pulses palpable. Neurologic: Gait normal. Sensation grossly intact. Component Latest Ref Rng & Units 03/04/2023 WBC 3.70 - 11.00 k/uL 7.87 RBC 3.90 - 5.20 m/uL 4.11 Hemoglobin 11.5 - 15.5 g/dL 11.9 Hematocrit 36.0 - 46.0 % 35.4 (L) MCV 80.0 - 100.0 fL 86.1 MCH 26.0 - 34.0 pg 29.0 MCHC 30.5 - 36.0 g/dL 33.6 RDW-CV 11.5 - 15.0 % 13.4 Platelet Count 150 - 400 k/uL 360 MPV 9.0 - 12.7 fL 10.4 Neut% % 61.2 Abs Neut (ANC) 1.45 - 7.50 k/uL 4.82 Lymph% % 17.8 Abs Lymph 1.00 - 4.00 k/uL 1.40 [place]% % 11.8 Abs [place] <0.87 k/uL 0.93 (H) Eosin% % 7.8 Abs Eosin <0.46 k/uL 0.61 (H) Baso% % 0.6 Abs Baso <0.11 k/uL 0.05 Immature Gran % % 0.8 IMMATURE GRANS (ABS) <0.10 k/uL 0.06 NRBC /100 WBC 0.0 Absolute nRBC <0.01 k/uL <0.01 DTYPE Auto Glucose 74 - 99 mg/dL 92 BUN 7 - 21 mg/dL 17 Creatinine 0.58 - 0.96 mg/dL 1.00 (H) Sodium 136 - 144 mmol/L 140 Potassium 3.7 - 5.1 mmol/L 3.8 Chloride 97 - 105 mmol/L 105 CO2 22 - 30 mmol/L 26 Anion Gap 9 - 18 mmol/L 9 Calcium 8.5 - 10.2 mg/dL 9.8 eGFR >=60 mL/min/1.73m 64 NT Pro BNP <125 pg/mL 209 (H) ASSESSMENT/PLAN: 1. Left leg swelling - ICD9: 729.81, ICD10: M79.89 (primary diagnosis) - Get additional vascular testing completed. - May use Lasix 20 mg for the next 3 days for swelling, instructed to elevate the legs when possible. - US VENOUS REFLUX BILATERAL - PVR ANK PRESS VIVIEN VAS LAB - CONSULT TO VASCULAR MEDICINE - FUROSEMIDE 20 MG TABLET 2. Pain of left lower extremity - ICD9: 729.5, ICD10: M79.605 - Start prednisone taper - PREDNISONE 10 MG TABLET Follow-up pending test results or sooner as needed. Discussed treatment plan and patient voices understanding. Patient's questions answered appropriately. Medications and potential side effects were discussed and patient voices understanding. Anayeli Ng APRN.PENNY This note was partially generated using App[employer] voice recognition system. Note was reviewed for accuracy. There may be minor misspellings or grammar miscues with Appinions voice recognition. documented in this encounterPremier Health [facility]06-29-2023 History of Present illness Narrative* Erin Buenrostro RDMN - 03/05/2023 2:30 PM EDT Radiology Service Progress Note PATIENT NAME: Mariam Minaya DATE OF SERVICE: March 05, 2023 TIME: 3:29 PM PATIENT IDENTITY VERIFICATION COMPLETED USING TWO (2) IDENTIFIERS: Name and Date of confirmedby patient verbally. FALL SCREENING: Has the patient had 2 falls in the last year or 1 fall with injury or currently using an Ambulatory Assistive Device (Walker, Cane, Wheelchair, Crutches, etc.)? No PATIENT GENDER DATA: Female. status: : No status: NO. PATIENT RELEVANT IMPLANT DATA REVIEWED: Not Applicable RADIOLOGY DEPARTMENT: Ultrasound PERIPHERAL IV DATA: Not applicable SIGNED BY: Erin Buenrostro RDMS March 05, 2023 3:29 PM documented in this encounterPremier Health [facility]06-28-2023 History of Present illness Narrative* Felisa Collier RT(R) - 03/04/2023 3:00 PM EDT Radiology Service Progress Note PATIENT NAME: Mariam Minaya DATE OF SERVICE: March 04, 2023 TIME: 2:57 PM PATIENT IDENTITY VERIFICATION COMPLETED USING TWO (2) IDENTIFIERS: Name and Date of confirmedby patient verbally. FALL SCREENING: Has the patient had 2 falls in the last year or 1 fall with injury or currently using an Ambulatory Assistive Device (Walker, Cane, Wheelchair, Crutches, etc.)? No PATIENT GENDER DATA: Female. status: : No status: NO. PATIENT RELEVANT IMPLANT DATA REVIEWED: Yes RADIOLOGY DEPARTMENT: General X-ray: Exam(s) Completed: Chest X-Ray PERIPHERAL IV DATA: Not applicable SIGNED BY: RT Shiela(R) March 04, 2023 2:57 PM documented in this encounterPremier Health [facility]06-28-2023 History of Present illness Narrative* Demetria Aquino APRN.PENNY - 03/04/2023 2:46 PM EDT This note was created using [employer]. Subjective Mariam Minaya is a 62 year old female. 62 year old female with PMH fibromyalgia, insomnia, GERD, CKD, Sjogrens, RA, and psoriasis presentsfor leg swelling. Acute onset one week ago. Bilateral legs Left greater than right. States she has gained weight States she becomes more easily wounded with stairs, Otherwise denies SOB or dyspnea. Denies hemoptysis. Denies skin rash or lesions. Recently placed on Neurontin Denies tobacco usage. Denies recent travel or immobilization. Denies prior history of same. The history is provided by the patient. No research program manager was used. Edema This is a new problem. The current episode started in the past 7 days. The problem occurs constantly. The problem has been gradually worsening. Pertinent negatives include no abdominal pain, anorexia, arthralgias, change in bowel habit, chest pain, chills, congestion, coughing, diaphoresis, fatigue, fever, headaches, joint swelling, myalgias, nausea, neck pain, numbness, rash, sore throat, swollen glands, urinary symptoms, vertigo, visual change, vomiting or weakness. Nothing aggravates the symptoms. She has tried nothing for the symptoms. The treatment provided no relief. PAST MEDICAL HISTORY Diagnosis Date Astigmatism, regular 12/22/2015 Chronic bilateral low back pain with sciatica 12/10/2015 Chronic kidney insufficiency, stage 3 (moderate) (HCC) 04/06/2018 Encounter for gynecological examination 05/03/2019 [facility] 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 RA (rheumatoid arthritis) (HCC) + RF, +CCP OVERLAP PsA (+NAIL disease, dactylitis, axial inflammatory sx) Sjogren's syndrome (HCC) Neg SSA SSB in January 2009 Thyroid cancer (HCC) 09/07/[address] Maldonado removed, radioactive iodine ablation. papillary Vitamin D deficiency PAST SURGICAL HISTORY Procedure Laterality Date BREAST AUGMENTATION W/PROSTHETIC IMPLANT 2000 bilateral implants BX BREAST PERC NEED W/GUID 10/29/11 U/S needle core left axillary LN COLONOSCOPY FLX DX W/COLLJ SPEC WHEN PFRMD 09/07/2010 Colonoscopy, repeat 10 yrs EGD TRANSORAL BIOPSY SINGLE/MULTIPLE 11/06/06 Hiatal hernia, gastritis, retained food ESOPHAGOGASTRODUODENOSCOPY TRANSORAL DIAGNOSTIC EGD ESOPHAGOGASTRODUODENOSCOPY TRANSORAL DIAGNOSTIC 03/15/2015 EGD FNA (FINE NEEDLE ASPIRATION) 10/15/06 U/S FNA right thyroid nodule FNA WITH IMAGING 09/22/11 U/S FNA left axillary mass KNEE ARTHROSCOPY Left 2009 LIG/TRNSXJ FLP TUBE ABDL/VAG APPR UNI/BI Tubal ligation NEUROPLASTY &/TRANSPOS MEDIAN NRV CARPAL TUNNE Left 05/30/16 Carpal tunnel decomp NEUROPLASTY &/TRANSPOS MEDIAN NRV CARPAL TUNNE Right 09/26/2016 Carpal tunnel decomp PAST SURGICAL HISTORY OF 2010 removal of implants & replace & pannilectomy SYNOVECTOMY EACH 1999 left wrist THYROIDECTOMY TOTAL/COMPLETE 11/10/06 TONSILLECTOMY & ADENOIDECTOMY <AGE 12 Tonsillectomy VAGINAL HYSTERECTOMY UTERUS 250 GM/< 2004 Hysterectomy, vaginal ALLERGIES Flovent [Fluticasone], Amicar [Aminocaproic Acid], Humira [Adalimumab], Tessalon [Benzonatate], Albuterol, and Methotrexate MEDICATIONS gabapentin (NEURONTIN) 600 mg tablet Take 1 tablet by mouth three times daily for 30 days. levothyroxine (SYNTHROID) 125 mcg tablet Take 1 tablet by mouth once daily. Take on empty stomach. For Thyroid ergocalciferol 50,000 unit capsule (VITAMIN D2, DRISDOL) TAKE 1 CAPSULE BY MOUTH TWO TIMES A WEEK. Cholecalciferol, Vitamin D3, 50 mcg (2,000 unit) cap Take 1 capsule by mouth twice daily. polyethylene glycol 3350 (MIRALAX) 17 gram/dose powder 17gm in 8oz daily until stools regular (for constipation) vitamin b complex tab Take 1 tablet by mouth once daily. FAMILY HISTORY Problem Relation Age of Onset Cancer Father None Mother Diabetes Brother from type I dx/d age 9 Breast Cancer Sister Thyroid Sister cancer Diabetes Grandchild Type I age 8 Social History Tobacco Use Smoking status: Never Smokeless tobacco: Never Vaping Use Vaping Use: Never used Substance Use Topics Alcohol use: No Comment: rare ; deo. wine Drug use: No Review of Systems Constitutional: Negative for chills, diaphoresis, fatigue and fever. HENT: Negative for congestion and sore throat. Respiratory: Negative for cough. Cardiovascular: Negative for chest pain. Gastrointestinal: Negative for abdominal pain, anorexia, change in bowel habit, nausea and vomiting. Musculoskeletal: Negative for arthralgias, joint swelling, myalgias and neck pain. Bilateral leg swelling Skin: Negative for color change, pallor, rash and wound. Neurological: Negative for vertigo, weakness, numbness and headaches. Hematological: Negative for adenopathy. Does not bruise/bleed easily. Psychiatric/Behavioral: Negative for agitation and behavioral problems. Objective BP 122/68 Pulse 85 Temp 36.7 C (98 F) Resp 21 Wt 83 kg (183 lb) SpO2 97% BMI 29.76 kg/m Physical Exam Vitals and nursing note reviewed. Constitutional: General: She is not in acute distress. Appearance: Normal appearance. She is normal weight. She is not ill-appearing, toxic-appearing or diaphoretic. HENT: Head: Normocephalic and atraumatic. Right Ear: Ear canal and external ear normal. Left Ear: Ear canal and external ear normal. Nose: Nose normal. No congestion or rhinorrhea. Mouth/Throat: Mouth: Mucous membranes are moist. Pharynx: No oropharyngeal exudate or posterior oropharyngeal erythema. Eyes: General: Right eye: No discharge. Left eye: No discharge. Extraocular Movements: Extraocular movements intact. Conjunctiva/sclera: Conjunctivae normal. Pupils: Pupils are equal, round, and reactive to light. Cardiovascular: Rate and Rhythm: Normal rate and regular rhythm. Pulses: Normal pulses. Heart sounds: Normal heart sounds. No murmur heard. No friction rub. Pulmonary: Effort: Pulmonary effort is normal. No respiratory distress. Breath sounds: Normal breath sounds. No stridor. No wheezing, rhonchi or rales. Chest: Chest wall: No tenderness. Abdominal: General: Abdomen is flat. There is no distension. Palpations: Abdomen is soft. There is no mass. Tenderness: There is no abdominal tenderness. There is no right CVA tenderness, left CVA tenderness, guarding or rebound. Hernia: No hernia is present. Musculoskeletal: General: Swelling and tenderness present. No deformity or signs of injury. Normal range of motion. Cervical back: Normal range of motion and neck supple. No rigidity. Right lower leg: Edema present. Left lower leg: Edema present. Comments: Left lower extremity with lower non pitting edema. Right lower extremity with lower degree swelling. No ecchymosis. No erythema. +neuro + sensation Pain with palpation. NO pain with ambulating or bearing weight. +distal pulses intact. Lymphadenopathy: Cervical: No cervical adenopathy. Skin: General: Skin is warm and dry. Coloration: Skin is not jaundiced or pale. Findings: No bruising, erythema, lesion or rash. Neurological: General: No focal deficit present. Mental Status: She is alert and oriented to person, place, and time. Cranial Nerves: No cranial nerve deficit. Sensory: No sensory deficit. Motor: No weakness. Coordination: Coordination normal. Gait: Gait normal. Psychiatric: Mood and Affect: Mood normal. Behavior: Behavior normal. Thought Content: Thought content normal. Judgment: Judgment normal. Assessment and Plan ASSESSMENT/PLAN: 1. Leg swelling - ICD9: 729.81, ICD10: M79.89 B/L for one week No known trauma or injury. Dependent edema vs. DVT vs CHF - US DVT LOWER BILATERAL-scheduled for 03/05/23, discussed red flags to seek ED - NT PRO BNP-pending - XR CHEST 2V FRONTAL/LAT-Mild opacity at the left base, likely atelectasis in the absence of clinical concern for infection. - CBC + DIFF-normal - BASIC METABOLIC PNL-normal Supportive measures Elevate Demetria Aquino APRN.CNP documented in this encounterPremier Health [facility]06-23-2023 Miscellaneous Notes* Telephone Encounter - Davida Crum Ma - 02/27/2023 9:43 AM EDT Call to pt and notified her that increased dosage has been sent into pharmacy. Pt verbalized understanding. 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 Davida Crum Ma * Telephone Encounter - Anayeli Ng APRN.CNP - 02/27/2023 6:52 AM EDT The following approved medication requests have been transmitted electronically. Requested Prescriptions Signed Prescriptions Disp Refills gabapentin (NEURONTIN) 600 mg tablet 90 tablet 1 Sig: Take 1 tablet by mouth three times daily for 30 days. Authorizing Provider: ANAYELI NG APRN.PENNY * Telephone Encounter - Grace Blunt RN - 02/26/2023 4:41 PM EDT Patient calling to ask if Gabapentin can be increased? She says she is having a lot of pain. She isalso taking Ibuprofen 800 mg (200 mg x 4 tablets) every eight hours. Please review and advise. Grace Blunt RN * Telephone Encounter - Dorothy Ellison LPN - 02/25/2023 9:09 AM EDT Pt calling with an update. Pt's Gabapentin was increased and this worked for about 3 days and now she is back to where she was before the change and can barely walk. This is due to sciatic. Please advise. .me documented in this encounterPremier Health [facility]06-15-2023 Miscellaneous Notes* Telephone Encounter - Davida Crum Ma - 02/19/2023 4:44 PM EDT Pt called and notified, verbalized understanding. Davida Crum Ma * Telephone Encounter - Laura Robertson MD - 02/19/2023 4:33 PM EDT OK to increase Neurontin to 300 mg tid Laura Robertson MD * Telephone Encounter - Jaki Duff LPN - 02/19/2023 2:17 PM EDT Patient calling she had seen Anayeli Ng NP on Thursday for sciatica pain radiating down her rightleg to her foot. She was given Gabapentin 100 mg one capsule three times daily, and was told to call she could increase her dose if not helping. Patient said she is still having a lot of pain. Aware CLERICAL ADMINISTRATOR is not in office today, sending note to PCP to review. Please advise documented in this encounterPremier Health [facility]06-02-2023 Miscellaneous Notes* Telephone Encounter - Florence Ho MA - 02/06/2023 1:22 PM EDT Spoke with patient that she can see Pain Management in [place] and I sent message to her with phonefor her to call and schedule. And also gave her information for [facility] [place] that she can schedulecloser to home. Patient was glad to get locations closer to her. documented in this encounterPremier Health [facility]06-02-2023 Instructions* Patient Instructions* Becky Zamarripa APRN.BUILDING MAINTENANCE SUPERVISOR - 02/06/2023 11:45 AM EDT ASSESSMENT/PLAN: 1. Sciatica, right side - ICD9: 724.3, ICD10: M54.31 (primary diagnosis) - XR LUMBAR GENERAL 3V AP/LAT/L5-S1 Radiologist IMPRESSION: No acute fracture. Dextroscoliosis of the lumbar spine.. There is degenerative disc disease at multiple levels of the lumbar spine with endplate sclerosis, intervertebral disc space narrowing and osteophyte formation. Sacroiliac joints appear normal. Vascular calcifications are noted. IMPRESSION: NO EVIDENCE OF FRACTURE Provisioning Specialist: [facility] Transcribe Date/Time: Feb 06 2023 11:38A Dictated by : LADONNA COWAN MD - PREDNISONE 10 MG TABLET 2. Acute right hip pain - ICD9: 719.45, ICD10: M25.551 - XR HIP GENERAL 3V PELV/AP/LAT RIGHT Radiologist IMPRESSION: No acute osseous abnormality Provisioning Specialist: [facility] Transcribe Date/Time: Feb 06 2023 11:36A Dictated by : LADONNA COWAN MD 3. Pain of right lower leg - ICD9: 729.5, ICD10: M79.661 - XR TIBIA FIBULA 2V AP/LAT RIGHT Radiologist IMPRESSION: No acute osseous abnormality Provisioning Specialist: GABI Transcribe Date/Time: Feb 06 2023 11:35A Dictated by : LADONNA COWAN MD 4. History of fall - ICD9: V15.88, ICD10: Z91.81 - ice to lower back. Alternate tylenol and ibuprofen. - Follow-up with your PCP in 3-5 days if symptoms have not improved or sooner if symptoms worsen - Discussed red flags and need for immediate medical evaluation if any occur. - Discussed supportive care treatment with fluids, rest and analgesia. - Discussed expected course of illness Becky Zamarripa, GARRY.BUILDING MAINTENANCE SUPERVISOR SCIATICA: Your exam shows you have sciatica, a condition most often seen in patients with disc disease of thelower back. Sciatica causes pain to radiate from the lower back or buttock area down the leg. It results from pressure on nerve roots coming out of the spine when a disc deteriorates and pushes to one side. Often there is a history of back problems. In most cases sciatica improves greatly with conservative treatment. Most patients with it are completely better after 2-4 weeks of bed rest and other supportive care. Bed rest reduces the disc pressure greatly; sitting is the worst position since the pressure on the disc is over 5 times greater than it is while lying down. You should avoid bending, lifting, and all other activities which make the problem worse. After the pain improves, you may continue with normal activity, taking brief periods for bed rest throughout the day until you are back to normal. Aspirin, ibuprofen, or other anti-inflammatory drugs are often used to help control pain. Muscle relaxants may help by relieving spasm and providing mild sedation. Cold or heat therapy and massage may also give significant relief. Spinal manipulation is not recommended because it can increase the degree of disc protrusion. Surgery is reserved for patients that do not improve with conservative treatment, or who have signs of severe nerve root pressure. You should see your doctor for follow up care as recommended. A program for back injury rehabilitation with stretching and strengthening exercises is an important part of management. Please call yourdoctor, a back specialist, or the emergency room right away if you notice increased pain, weakness,or numbness in your legs, or if you have any difficulty with bladder or bowel control. documented in this encounterPremier [facility]06-02-[facility] History of Present illness Narrative* Becky Zamarripa APRN.CNP - 02/06/2023 11:39 AM EDT Images from the original note were not included. Subjective HPI Mariam Minaya is a 62 year old female who presents with right hip and lower leg pain. She has had this for the past month. About 2 weeks ago she fell while walking her dogs and the pain got worse. She also had lower back pain for a few days afterwards. That improved but hip and lower legpain persists. She rates the pain 05/17. She has taken oxycodone (dentist prescribed following tooth extraction) and it has not helped. She recently took a medrol dose pack for her RA and it did not help her pain. Review of Systems Constitutional: Negative for chills and fever. Respiratory: Negative. Cardiovascular: Negative. Musculoskeletal: Positive for back pain, falls and joint pain. Skin: Negative for itching and rash. BP 140/86 Pulse 95 Temp 36.7 C (98 F) (Tympanic) Resp 20 Wt 80.6 kg (177 lb 9.6 oz) SpO2 98% BMI 27.82 kg/m PAST MEDICAL HISTORY Diagnosis Date Astigmatism, regular 12/22/2015 Chronic bilateral low back pain with sciatica 12/10/2015 Chronic kidney insufficiency, stage 3 (moderate) (HCC) 04/06/2018 Encounter for gynecological examination 05/03/2019 [facility]. 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 RA (rheumatoid arthritis) (HCC) + RF, +CCP OVERLAP PsA (+NAIL disease, dactylitis, axial inflammatory sx) Sjogren's syndrome (HCC) Neg SSA SSB in January 2009 Thyroid cancer (HCC) 09/07/[address] Maldonado removed, radioactive iodine ablation. papillary Vitamin D deficiency PAST SURGICAL HISTORY Procedure Laterality Date BREAST AUGMENTATION W/PROSTHETIC IMPLANT 2000 bilateral implants BX BREAST PERC NEED W/GUID 10/29/11 U/S needle core left axillary LN COLONOSCOPY FLX DX W/COLLJ SPEC WHEN PFRMD 09/07/2010 Colonoscopy, repeat 10 yrs EGD TRANSORAL BIOPSY SINGLE/MULTIPLE 11/06/06 Hiatal hernia, gastritis, retained food ESOPHAGOGASTRODUODENOSCOPY TRANSORAL DIAGNOSTIC EGD ESOPHAGOGASTRODUODENOSCOPY TRANSORAL DIAGNOSTIC 03/15/2015 EGD FNA (FINE NEEDLE ASPIRATION) 10/15/06 U/S FNA right thyroid nodule FNA WITH IMAGING 09/22/11 U/S FNA left axillary mass KNEE ARTHROSCOPY Left 2009 LIG/TRNSXJ FLP TUBE ABDL/VAG APPR UNI/BI Tubal ligation NEUROPLASTY &/TRANSPOS MEDIAN NRV CARPAL TUNNE Left 05/30/16 Carpal tunnel decomp NEUROPLASTY &/TRANSPOS MEDIAN NRV CARPAL TUNNE Right 09/26/2016 Carpal tunnel decomp PAST SURGICAL HISTORY OF 2010 removal of implants & replace & pannilectomy SYNOVECTOMY EACH 1999 left wrist THYROIDECTOMY TOTAL/COMPLETE 11/10/06 TONSILLECTOMY & ADENOIDECTOMY <AGE 12 Tonsillectomy VAGINAL HYSTERECTOMY UTERUS 250 GM/< 2004 Hysterectomy, vaginal ALLERGIES Flovent [Fluticasone], Amicar [Aminocaproic Acid], Humira [Adalimumab], Tessalon [Benzonatate], Albuterol, and Methotrexate MEDICATIONS levothyroxine (SYNTHROID) 125 mcg tablet Take 1 tablet by mouth once daily. Take on empty stomach. For Thyroid ergocalciferol 50,000 unit capsule (VITAMIN D2, DRISDOL) TAKE 1 CAPSULE BY MOUTH TWO TIMES A WEEK. Cholecalciferol, Vitamin D3, 50 mcg (2,000 unit) cap Take 1 capsule by mouth twice daily. polyethylene glycol 3350 (MIRALAX) 17 gram/dose powder 17gm in 8oz daily until stools regular (for constipation) vitamin b complex tab Take 1 tablet by mouth once daily. predniSONE (DELTASONE) 10 mg tablet Take by mouth with food. Take 3 tablets daily for 1 week, then 2 tablets daily for 1 week, then 1 tablet daily for 1 week, then stop (Patient not taking: Reported on 02/06/2023) amoxicillin (AMOXIL) 500 mg capsule Take 1 capsule by mouth three times daily until gone (Patient not taking: Reported on 01/29/2023) Unjyvefwpwsfxnj-Tcuydlmtn-BL 2-30-10 mg/5 mL syrup Take 5 mL by mouth four times daily as needed. clotrimazole-betamethasone (LOTRISONE) cream Apply to affected area twice daily. FAMILY HISTORY Problem Relation Age of Onset Cancer Father None Mother Diabetes Brother from type I dx/d age 9 Breast Cancer Sister Thyroid Sister cancer Diabetes Grandchild Type I age 8 Social History Tobacco Use Smoking status: Never Smokeless tobacco: Never Vaping Use Vaping Use: Never used Substance Use Topics Alcohol use: No Comment: rare ; deo. wine Drug use: No Objective Physical Exam Vitals and nursing note reviewed. Constitutional: General: She is not in acute distress. Appearance: Normal appearance. Cardiovascular: Rate and Rhythm: Normal rate. Pulmonary: Effort: Pulmonary effort is normal. Musculoskeletal: General: Tenderness present. No swelling or deformity. Lumbar back: Tenderness (right SI joint tenderness) present. No swelling, deformity, lacerations, spasms or bony tenderness. Positive right straight leg raise test. Negative left straight leg raise test. Back: Right lower leg: Tenderness present. No swelling or bony tenderness. No edema. Legs: Skin: General: Skin is warm and dry. Capillary Refill: Capillary refill takes less than 2 seconds. Findings: No erythema or rash. Neurological: Mental Status: She is alert. Motor: No weakness. Coordination: Coordination normal. Gait: Gait normal. ASSESSMENT/PLAN: 1. Sciatica, right side - ICD9: 724.3, ICD10: M54.31 (primary diagnosis) - XR LUMBAR GENERAL 3V AP/LAT/L5-S1 Radiologist IMPRESSION: No acute fracture. Dextroscoliosis of the lumbar spine.. There is degenerative disc disease at multiple levels of the lumbar spine with endplate sclerosis, intervertebral disc space narrowing and osteophyte formation. Sacroiliac joints appear normal. Vascular calcifications are noted. IMPRESSION: NO EVIDENCE OF FRACTURE Provisioning Specialist: GABI Transcribe Date/Time: Feb 06 2023 11:38A Dictated by : LADONNA COWAN MD - PREDNISONE 10 MG TABLET 2. Acute right hip pain - ICD9: 719.45, ICD10: M25.551 - XR HIP GENERAL 3V PELV/AP/LAT RIGHT Radiologist IMPRESSION: No acute osseous abnormality Provisioning Specialist: GABI Transcribe Date/Time: Feb 06 2023 11:36A Dictated by : LADONNA COWAN MD 3. Pain of right lower leg - ICD9: 729.5, ICD10: M79.661 - XR TIBIA FIBULA 2V AP/LAT RIGHT Radiologist IMPRESSION: No acute osseous abnormality Provisioning Specialist: PSCB Transcribe Date/Time: Feb 06 2023 11:35A Dictated by : LADONNA COWAN MD 4. History of fall - ICD9: V15.88, ICD10: Z91.81 - ice to lower back. Alternate tylenol and ibuprofen. - Follow-up with your PCP in 3-5 days if symptoms have not improved or sooner if symptoms worsen - Discussed red flags and need for immediate medical evaluation if any occur. - Discussed supportive care treatment with fluids, rest and analgesia. - Discussed expected course of illness Becky Zamarripa APRN.BUILDING MAINTENANCE SUPERVISOR documented in this encounterPremier [facility]06-02-2023 History of Present illness Narrative* Rama House, RT(R) - 02/06/2023 11:10 AM EDT Radiology Service Progress Note PATIENT NAME: Mariam Minaya DATE OF SERVICE: February 06, 2023 TIME: 11:11 AM PATIENT IDENTITY VERIFICATION COMPLETED USING TWO (2) IDENTIFIERS: Name and Date of confirmedby patient verbally. FALL SCREENING: Has the patient had 2 falls in the last year or 1 fall with injury or currently using an Ambulatory Assistive Device (Walker, Cane, Wheelchair, Crutches, etc.)? No PATIENT GENDER DATA: Female. status: : No status: NO. PATIENT RELEVANT IMPLANT DATA REVIEWED: Not Applicable RADIOLOGY DEPARTMENT: General X-ray: Exam(s) Completed: Spine X-Ray(s): Lumbar AP / LAT / L5-S1 Pelvis X-Ray: Pelvis with Hip Right Lower Extremity X-Ray(s): Tibia Fibula, Right PERIPHERAL IV DATA: Not applicable SIGNED BY: RT [place](R) February 06, 2023 11:11 AM documented in this encounterPremier Health [facility]05-11-2023 Instructions* Patient Instructions* Ailyn Zuniga RN - 01/15/2023 9:28 AM EDT TREATMENT Date: 07/02/2023 Treatment: D-Rituximab Min: 360 Date: 07/16/2023 Treatment: D-Rituximab Min: 240 Patient Preferred Time: early am please documented in this encounterPremier Health [facility]05-11-2023 History of Present illness Narrative* Ailyn Zuniga RN - 01/15/2023 8:50 AM EDT PRE-INFUSION SCREENING Since your last infusion have you: Had any major change in your health? No Been to the emergency room? No Been hospitalized? No Had any infections? No Taken any antibiotics? Yes Currently on antibiotics for a broken tooth Had surgery or do you have upcoming surgery? Yes Oral surgery on Thursday In the past 7 days have you had: Fevers/chills/night sweats? No New cough or cold symptoms (including sore throat)? No Nausea, vomiting, diarrhea? No Unusual swelling in your ankles or feet? No Burning/blood with urination or urinary frequency? No New weakness, numbness, stumbling, or falls? No New rash or open sores? No Patient offered bathroom assistance throughout treatment? Yes documented in this encounterPrem[facility]05-05-2023 Miscellaneous Notes* Telephone Encounter - Tobi Vasquez RN - 01/09/2023 2:13 PM EDT Phone and notified patient that medication has been sent to Pharmacy. Patient given instructions for taking the medication. Patient verbalized understanding. * Telephone Encounter - Michelle Simpson APRN.PENNY - 01/09/2023 1:42 PM EDT The following approved medication requests have been transmitted electronically. Requested Prescriptions Signed Prescriptions Disp Refills predniSONE (DELTASONE) 10 mg tablet 42 tablet 0 Sig: Take by mouth with food. Take 3 tablets daily for 1 week, then 2 tablets daily for 1 week, then 1 tablet daily for 1 week, then stop Authorizing Provider: MICHELLE SIMPSON APRN.PENNY * Telephone Encounter - Elyssa Elkins MA - 01/09/2023 1:36 PM EDT Spoke with patient. Patient is currently taking Prednisone 10 mg PO once daily (tomorrow is her last day). She is having a flare up. Pain is located in the knees, shoulders, hands, feet and back. Pain level on average is 6/10, continuous. She's had this pain for 4 days. No fever, but has soreness, swelling and stiffness. Redness and warmth in hands. Elyssa Elkins MA * Telephone Encounter - Elyssa Elkins MA - 01/09/2023 1:33 PM EDT Patient has been identified by name and date of : Yes RX INSTRUCTIONS: Patient aware RX will be sent to pharmacy. No need to notify patient. LAST APPOINTMENT: 11/07/2022 UPCOMING APPOINTMENT: 02/12/2023 LABS: Hemoglobin (g/dL) Date Value 11/08/2022 15.1 10/17/2021 12.7 Hematocrit (%) Date Value 11/08/2022 43.9 10/17/2021 38.5 WBC (k/uL) Date Value 11/08/2022 5.37 10/17/2021 6.15 Platelet Count (k/uL) Date Value 11/08/2022 322 10/17/2021 322 AST Date Value Ref Range Status 11/08/2022 23 13 - 35 U/L Final ALT Date Value Ref Range Status 11/08/2022 9 7 - 38 U/L Final Creatinine Date Value Ref Range Status 11/08/2022 0.97 (H) 0.58 - 0.96 mg/dL Final No results found for: URICACID Elyssa Elkins MA * Telephone Encounter - Elodia Elder RPh - 01/09/2023 1:28 PM EDT Pharmacist Refill Authorization Review Name: Mariam Minaya Date: 01/09/2023 Time: 1:28 PM Refill authorization request(s) received via patient request and reviewed under effective consult agreement. Upon review, did confirm that an active patient- provider relationship exists and that the prescriber is a participating physician under the consult agreement. Last office visit in this department: 11/07/2022 Michelle Simpson APRN.CNP Last distance health visit in this department: 08/07/2020 Kenneth Alonzo MD Next appointment in this department: 02/12/2023 Michelle Simpson APRN.CNP The medication(s) fall under the following categories: Category 3: Medication(s) does not qualify for pharmacist renewal due to unclear duration of therapy and medication excluded from collaborative practice agreement. Renewal request sent to provider for review. Requested Prescriptions Pending Prescriptions Disp Refills predniSONE (DELTASONE) 10 mg tablet 42 tablet 0 Sig: Take by mouth with food. Take 3 tablets daily for 1 week, then 2 tablets daily for 1 week, then 1 tablet daily for 1 week, then stop Number of refills approved in this encounter: 0 Number of refills forwarded to provider for review: 1 Number of refills denied in this encounter: 0 Elodia Elder RPh documented in this encounterPremier [facility]04-14-2023 Miscellaneous Notes* Telephone Encounter - Michelle Simpson APRN.CNP - 12/19/2022 11:48 AM EDT The following approved medication requests have been transmitted electronically. Requested Prescriptions Signed Prescriptions Disp Refills predniSONE (DELTASONE) 10 mg tablet 42 tablet 0 Sig: Take by mouth with food. Take 3 tablets daily for 1 week, then 2 tablets daily for 1 week, then 1 tablet daily for 1 week, then stop Authorizing Provider: MICHELLE SIMPSON APRN.PENNY * Telephone Encounter - Elyssa Elkins MA - 12/19/2022 10:35 AM EDT Patient has been identified by name and date of : Yes RX INSTRUCTIONS: Patient aware RX will be sent to pharmacy. No need to notify patient. Spoke with patient. She is having a flare up x 2 weeks. Having lots of joint and muscle pain, on average 8/10 daily. Stiffness and swelling in fingers and feet. Recently was diagnosed with COVID, butit has been resolved. LAST APPOINTMENT: 11/07/2022 UPCOMING APPOINTMENT: 02/12/2023 LABS: Hemoglobin (g/dL) Date Value 11/08/2022 15.1 10/17/2021 12.7 Hematocrit (%) Date Value 11/08/2022 43.9 10/17/2021 38.5 WBC (k/uL) Date Value 11/08/2022 5.37 10/17/2021 6.15 Platelet Count (k/uL) Date Value 11/08/2022 322 10/17/2021 322 AST Date Value Ref Range Status 11/08/2022 23 13 - 35 U/L Final ALT Date Value Ref Range Status 11/08/2022 9 7 - 38 U/L Final Creatinine Date Value Ref Range Status 11/08/2022 0.97 (H) 0.58 - 0.96 mg/dL Final No results found for: URICACID Elyssa Elkins MA * Telephone Encounter - Emeterio Wallcae RPh - 12/19/2022 10:34 AM EDT Pharmacist Refill Authorization Review Name: Mariam Minaya Date: 12/19/2022 Time: 10:34 AM Refill authorization request(s) received via patient request and reviewed under effective consult agreement. Upon review, did confirm that an active patient- provider relationship exists and that the prescriber is a participating physician under the consult agreement. Last office visit in this department: 11/07/2022 Michelle Simpson APRN.CNP Last distance health visit in this department: 08/07/2020 Kenneth Alonzo MD Next appointment in this department: 02/12/2023 Michelle Simpson APRN.CNP The medication(s) fall under the following categories: Category 3: Medication(s) does not qualify for pharmacist renewal due to medication excluded from collaborative practice agreement. Renewal request sent to provider for review. Requested Prescriptions Pending Prescriptions Disp Refills predniSONE (DELTASONE) 10 mg tablet 42 tablet 0 Sig: Take by mouth with food. Take 3 tablets daily for 1 week, then 2 tablets daily for 1 week, then 1 tablet daily for 1 week, then stop Number of refills approved in this encounter: 0 Number of refills forwarded to provider for review: 1 Number of refills denied in this encounter: 0 Emeterio Wallace RPh documented in this encounterPremier Health [facility]04-07-2023 Miscellaneous Notes* Telephone Encounter - Robina Manzano - 12/12/2022 12:56 PM EDT Spouse calling, patient is out of medication. Looking to get a refill today. * Telephone Encounter - Estrella Zuniga RPh - 12/12/2022 9:47 AM EDT Pharmacist Refill Authorization Review Name: Mariam Minaya Date: 12/12/2022 Time: 9:48 AM Refill authorization request(s) received and reviewed under effective consult agreement. Upon review, did confirm that an active patient-provider relationship exists and that the prescriber is a participating physician under the consult agreement. Last office visit in this department: 11/07/2022 Michelle Simpson APRN.CNP Last distance health visit in this department: 08/07/2020 Kenneth Alonzo MD Next appointment in this department: 02/12/2023 Michelle Simpson APRN.CNP The medication(s) fall under the following categories: Category 3: Medication(s) does not qualify for pharmacist renewal due to unclear duration of therapy and medication excluded from collaborative practice agreement. Renewal request sent to provider for review. Requested Prescriptions Pending Prescriptions Disp Refills predniSONE (DELTASONE) 10 mg tablet 42 tablet 0 Sig: Take by mouth with food. Take 3 tablets daily for 1 week, then 2 tablets daily for 1 week, then 1 tablet daily for 1 week, then stop Number of refills approved in this encounter: 0 Number of refills forwarded to provider for review: 1 Number of refills denied in this encounter: 0 Estrella Zuniga RPh documented in this encounterPremier Health [facility]03-29-2023 Instructions* Patient Instructions* Ally Chacon APRN.CNP - 12/03/2022 12:59 PM EDT Images from the original note were not included. FACT SHEET FOR PATIENTS, PARENTS, AND CAREGIVERS EMERGENCY USE AUTHORIZATION (EUA) OF PAXLOVID FOR CORONAVIRUS DISEASE 2019 (COVID-19) You are being given this Fact Sheet because your healthcare provider believes it is necessary to provide you with PAXLOVID for the treatment of upwz-po-mycosllr coronavirus disease (COVID-19) caused by the SARS-CoV-2 virus. This Fact Sheet contains information to help you understand the risks and benefits of taking the PAXLOVID you have received or may receive. The [place]. Food and Drug Administration (FDA) has issued an Emergency Use Authorization (EUA) to makePAXLOVID available during the COVID-19 pandemic (for more details about an EUA please see What is an Emergency Use Authorization? at the end of this document). PAXLOVID is not an FDA-approved medicine in the [place]. Read this Fact Sheet for information about PAXLOVID. Talk to your healthcareprovider about your options or if you have any questions. It is your choice to take PAXLOVID. What is COVID-19? COVID-19 is caused by a virus called a coronavirus. You can get COVID-19 through close contact withanother person who has the virus. COVID-19 illnesses have ranged from very kpii-tx-btaizr, including illness resulting in . While information so far suggests that most COVID-19 illness is mild, serious illness can happen and maycause some of your other medical conditions to become worse. Older people and people of all ages with severe, long lasting (chronic) medical conditions like heart disease, lung disease, and diabetes,for example seem to be at higher risk of being hospitalized for COVID-19. What is PAXLOVID? PAXLOVID is an investigational medicine used to treat adults and children [12 years of age and older weighing at least 88 pounds (40 kg)] with a current diagnosis of oqgz-yt-gnnqfwcp COVID-19 and whoare at high risk for progression to severe COVID-19, including hospitalization or . PAXLOVID is investigational because it is still being studied. There is limited information about the safety and effectiveness of using PAXLOVID to treat people with vtyi-gi-ufgiviay COVID-19. The FDA has authorized the emergency use of PAXLOVID for the treatment of mcqx-bk-jdlzbqfg COVID-19in adults and children [12 years of age and older weighing at least 88 pounds (40 kg)] with a current diagnosis of waaz-xy-siqgsvoi COVID-19 and who are at high risk for progression to severe COVID-19, including hospitalization or , under an EUA. 1 Revised: 22 November 2021 What should I tell my healthcare provider before I take PAXLOVID? Tell your healthcare provider if you: Have any allergies Have liver or kidney disease Are or plan to become Are a child Have any serious illnesses Some medicines may interact with PAXLOVID and may cause serious side effects. Tell your healthcare provider about all the merdicines you take, including prescription and glat-msv-rxnajnz medicines, vitamins, and herbal supplements. Your healthcare provider can tell you if it is safe to take PAXLOVID with other medicines. You can ask your healthcare provider or pharmacist for a list of medicines that interact with PAXLOVID Do not start taking a new medicine without telling your healthcare provider. Tell your healthcare provider if you are taking combined hormonal contraceptive. PAXLOVID may affect how your control pills work. Females who are able to become should use another effective alternative form of contraception or an additional barrier method of contraception. Talk to your healthcare provider if you have any questions about contraceptive methods thatmight be right for you. How do I take PAXLOVID? PAXLOVID consists of 2 medicines: nirmatrelvir tablets and ritonavir tablets. The 2 medicines are taken together 2 times each day for 5 days Nirmatrelvir is an oval, pink tablet. Ritonavir is a white or off-white tablet. PAXLOVID is available in 2 Dose Packs (see Figures A and B below). Your healthcare provider will prescribe the PAXLOVID Dose Pack that is right for you. If you have kidney disease, your healthcare provider may prescribe a lower dose (see Figure B). Talk to your healthcare provider to make sure you receive the correct Dose Pack. Do not remove your PAXLOVID tablets from the blister card before you are ready to take your dose. Take your first dose of PAXLOVID in the Morning or Evening, depending on when you pickup driver your prescription, or as recommended by your healthcare provider. Swallow the tablets whole. Do not chew, break, or crush the tablets. Take PAXLOVID with or without food. Do not stop taking PAXLOVID without talking to your healthcare provider, even if you feel better. If you miss a dose of PAXLOVID within 8 hours of the time it is usually taken, take it as soon as you remember. If you miss a dose by more than 8 hours, skip the missed dose and take the next dose atyour regular time. Do not take 2 doses of PAXLOVID at the same time. If you take too much PAXLOVID, call your healthcare provider or go to the nearest hospital emergency room right away. If you are taking a ritonavir-or cobicistat-containing medicine to treat hepatitis C or Human Immunodeficiency Virus (HIV), you should continue to take your medicine as prescribed by your healthcare provider. Talk to your healthcare provider if you do not feel better or if you feel worse after 5 days. Who should generally not take PAXLOVID? Do not take PAXLOVID if: You are allergic to nirmatrelvir, ritonavir, or any of the ingredients in PAXLOVID You are taking any of the following medicines: o alfuzosin o flecainide o primidone o amiodarone o filbanserin o propafenone o apalutamide o ivabradine o quinidine o carbamazepine o lomitapide o ranolazine o colchicine o lovastatin o ranolazine o dihydroergotamine o lumacaftor/ivacaftor o rifampin o dronedarone o lurasidone o Jason s Wort (hypericum perforatium) o eletriptan o methylergonovine o simvastatin o eplerenone o midazolam (oral) o sildenafil (Revatio ) for pulmonary arterial hypertension o ergotamine o naloxegol o silodosin o finerenone o phenobarbital o triazolam o flecainide o phenytoin o ubrogepant o pimozide o voclosporin Taking PAXLOVID with these medicines may cause serious or life-threatening side effects or affect how PAXLOVID works. These are not the only medicines that may cause serious side effects if taken with PAXLOVID. PAXLOVID may increase or decrease the levels of multiple other medicines. It is very important to tell your healthcare provider about all of the medicines you are taking because additional laboratory tests or changes in the dose of your other medicines may be necessary while you are taking PAXLOVID. Your healthcare provider may also tell you about specific symptoms to watch out for that may indicate that you need to stop or decrease the dose of some of your other medicines. What are the important possible side effects of PAXLOVID? Possible side effects of PAXLOVID are: Allergic Reactions. Allergic reactions, including severe allergic reactions (known as anaphylaxis ), can happen in people taking PAXLOVID, even after only 1 dose. Stop taking PAXLOVID and call your healthcare provider right away if you get any of the following symptoms of an allergic reaction: hives trouble swallowing or breathing swelling of the mouth, lips, or face throat tightness hoarseness skin rash Liver Problems. Tell your healthcare provider right away if you have any of these signs and symptoms of liver problems: loss of appetite, yellowing of your skin and the whites of eyes (jaundice), dark-colored urine, pale colored stools and itchy skin, stomach area (abdominal) pain. Resistance to HIV Medicines. If you have untreated HIV infection, PAXLOVID may lead to some HIV medicines not working as well in the future. Other possible side effects include: altered sense of taste diarrhea high blood pressure muscle aches abdominal pain nausea feeling generally unwell These are not all the possible side effects of PAXLOVID. Not many people have taken PAXLOVID. Serious and unexpected side effects may happen. PAXLOVID is still being studied, so it is possible that all of the risks are not known at this time. What other treatment choices are there? Veklury (remdesivir) is FDA-approved for the treatment of gcjq-ok-kekmnhtj COVID-19 in certain adults and children. Talk with your doctor to see if Veklury is appropriate for you. Like PAXLOVID, FDA may also allow for the emergency use of other medicines to treat people with COVID-19. Go to https://www.fda.gov/fieodhrsz-uezqbjwsrfjp-hvm-response/qdp-ivfbk-rdaskxqckk-and -policy-framework/udleffunq-red-ayidefquveuki for information on the emergency use of other medicines that are authorized by FDA to treat people with COVID-19. Your healthcare provider may talk with you about clinical trials for which you may be eligible. It is your choice to be treated or not to be treated with PAXLOVID. Should you decide not to receive it or for your child not to receive it, it will not change your standard medical care. What if I am or ? There is agronomy specialist treating women or mothers with PAXLOVID. For a motherand unborn baby, the benefit of taking PAXLOVID may be greater than the risk from the treatment. Ifyou are , discuss your options and specific situation with your healthcare provider. It is recommended that you use effective barrier contraception or do not have sexual activity whiletaking PAXLOVID. If you are , discuss your options and specific situation with your healthcare provider. How do I report side effects or problems with the appearance or packaging of PAXLOVID? Contact your healthcare provider if you have any side effects that bother you or do not go away. Report side effects or problems with the appearance or packaging of PAXLOVID (see Figures A and B above for examples of PAXLOVID Dose Packs) to FDA MedWatch at www.fda.gov/medwatch or call 0-584-GYX3933 or you can report side effects to [employer] at the contact information provided below. Website Fax number Telephone number [email or web address] How should I store PAXLOVID? Store PAXLOVID tablets at room temperature, between 68?F to 77?F (20?C to 25?C). How can I learn more about COVID-19? Ask your healthcare provider. Visit https://www.cdc.gov/COVID19 Contact your local or state public health department. What is an Emergency Use Authorization (EUA)? The [place] FDA has made PAXLOVID available under an emergency access mechanism called an Emergency Use Authorization (EUA). The EUA is supported by a [place] of Health and Human Service (HHS) declaration that circumstances exist to justify the emergency use of drugs and biological productsduring the COVID-19 pandemic. PAXLOVID for the treatment of qexe-kc-ipsqvqik COVID-19 in adults and children [12 years of age andolder weighing at least 88 pounds (40 kg)] who are at high risk for progression to severe COVID-19,including hospitalization or , has not undergone the same type of review as an FDA-approved product. In issuing an EUA under the COVID-19 public health emergency, the FDA has determined, among ot her things, that based on the total amount of scientific evidence available including data from adequate and well-controlled clinical trials, if available, it is reasonable to believe that the product may be effective for diagnosing, treating, or preventing COVID-19, or a serious or life-threatening disease or condition caused by COVID-19; that the known and potential benefits of the product, when used to diagnose, treat, or prevent such disease or condition, outweigh the known and potential risks of such product; and that there are no adequate, approved, and available alternatives. All of these criteria must be met to allow for the product to be used in the treatment of patients during the COVID-19 pandemic. The EUA for PAXLOVID is in effect for the duration of the COVID-19 declaration justifying emergency use of this product, unless terminated or revoked (after which the products may no longer be used under the EUA). Additional Information For general questions, visit the website or call the telephone number provided below. Website Telephone number www.[employer]nrvcMb[employer] (2-670-I43-CHCF) You can also go to www.[place] or call for more information. Pfizer Distributed by [employer] [place] [address] [id number] Revised: 10/2022 documented in this encounterPrem[facility]-29-[facility] History of Present illness Narrative* Ally Chacon APRN.CNP - 12/03/2022 12:42 PM EDT Telemedicine Evaluation for COVID-19 Infection MyChart video visit was used for evaluation of this patient. I have communicated my name and active licensure. The patient's identity and physical location wereverified at the time of this visit. Either the patient or their legal pharmacy services representative has been informed of the risks and benefits of -- and alternatives to -- treatment through a remote evaluation andconsents to proceed with the evaluation remotely. SUBJECTIVE Mariam Mianya is a 62 year old female who presents with 2 days of symptoms that are stable. Two positive home tests today Symptoms include: Fever (?100.4F): Yes or Chills: Yes Cough: Yes Shortness of breath: No or Difficulty breathing: No Fatigue: Yes Muscle aches: Yes Headache: Yes New loss of smell or taste: Yes since September Sore throat: No Nasal congestion: Yes or Rhinorrhea: No Nausea: Yes or Vomiting: No Diarrhea: Yes OTC meds/remedies that patient has tried: acetaminophen. Exposures: Sick contacts? Yes Family or close contacts with confirmed/probable COVID-19 in last 14 days? Yes OBJECTIVE VIDEO EXAM GENERAL: well appearing, alert, in no acute distress PULMONARY: breathing comfortably on room air , no coughing noted, no wheezing noted, and able to speak in full sentences without difficulty ASSESSMENT/PLAN : 1. Positive self-administered antigen test for COVID-19 - ICD9: 079.89, ICD10: U07.1 - no red flag symptoms or exam findings - red flag symptoms discussed, verbalizes understanding - discussed paxlovid and EUA, benefits ,risks and potential side effects, patient verbalizes understanding - discussed [facility] current guidelines for home isolation and the need to wear a mask for five additional day when around people, verbalizes understanding - NIRMATRELVIR 300 MG (150 MG X2)-RITONAVIR 100 MG TABLET,DOSE PACK(EUA) - may use OTC cough and cold medications as directed on packaging - follow-up if symptoms fail to improve, to ER with red flag symptoms Ally NieveslogGARRY pina.PENNY Nirmatrelvir/Ritonavir (Paxlovid) Eligibility and Patient Discussion [facility] Formulary Restriction Criteria: Adult outpatients 18 years and older with ALL of the following: [x] Patient has symptoms for 5 days or less [x] Not requiring hospitalization at any time for management of COVID-19 [x] Not requiring supplemental oxygen or a change in baseline supplemental oxygen [x] Not utilized for pre-exposure or post-exposure prophylaxis for prevention of COVID-19 [x] Patient does not have severe renal impairment (eGFR < 30 mL/min) or severe hepatic impairment (Child-[place] Class C) [x] Meeting at least one of the criteria for high risk of progression to severe COVID-19: [] Age over 65 years [] Cancer [] Chronic kidney disease [] Chronic liver disease [] Chronic lung diseases, including cystic fibrosis [] Dementia or other neurological conditions [] Diabetes (type 1 or type 2) [] Disabilities, including Down syndrome and neurodevelopmental disorders [] Heart conditions [] HIV infection [] Immunocompromised state [] Mental health conditions [] Medical related technological dependence (tracheostomy, gastrostomy, or positive pressure ventilation (not related to COVID) [x] Overweight and obesity (BMI greater or equal to 25 for adults) [] Physical inactivity [] [] Sickle cell disease or thalassemia [] Smoking, current or former [] Solid organ or blood stem cell transplant [] Stroke or cerebrovascular disease [] Substance use disorders [] Tuberculosis [] People from racial and ethnic minority groups Criteria above are met: Yes Date of Symptom Onset: 12/02/2022 Patient received COVID vaccine: No Drug-Drug interactions reviewed: Yes. Drug interactions were identified and the following actions were taken - no need to hold the prednisone I have discussed the use of the investigational therapeutic, nirmatrelvir/ritonavir, for the treatment of mild to moderate COVID-19 and its use under Emergency Use Authorization with the patient. The patient was informed that nirmatrelvir/ritonavir is not an FDA approved drug and that it is authorized for use under this Emergency Use Authorization. The patient was also informed of the significant known benefits and potential risks of nirmatrelvir/ritonavir, and the extent to which such potential risks and benefits are unknown. The patient was informed that there is mandatory reporting of all medication errors and serious adverse events potentially related to nirmatrelvir/ritonavir treatment within 7 calendar days from the onset of the event and that events up to 28 days after completion of therapy need to be reported. The discussion included alternatives to receiving nirmatrelvir/rit onavir, including clinical trials, and potential the risks and benefits of those alternatives. The patient was provided electronically with the Fact Sheet for Patients, Parents and Caregivers. The patient was also instructed that in addition to the treatment with nirmatrelvir/ritonavir, he/she should continue to self-isolate and use infection control measures (e.g., wear mask, isolate, social distance, avoid sharing personal items, clean and disinfect high touch surfaces, and frequent h andwashing) according to CDC guidelines. The patient stated understanding and gave verbal consent to proceeding with nirmatrelvir/ritonavir treatment. Ally Chacon APRN.CNP December 03, 2022 12:55 PM Prescription instructions reviewed with patient as applicable. Patient advised if symptoms do not improve or if symptoms worsen sooner, to contact their primary care physician. Potential red flag symptoms discussed with the patient. Reviewed appropriate action plan to take if red flag symptoms occur. Patient agreeable to treatment plan. I spent a total of 20 minutes on the date of the service which included preparing to see the patient, yjnc-vk-bmvr patient care, completing clinical documentation, obtaining and/or reviewing separately obtained history, performing a medically appropriate examination, counseling and educating the pat ient/family/caregiver, and ordering medications, tests, or procedures. documented in this encounterPrem[facility]03-29-2023 Miscellaneous Notes* Telephone Encounter - Kinjal Sky LPN - 12/03/2022 10:53 AM EDT Pt was notified & a VV was scheduled for today with Kvng. Kinjal Sky LPN * Telephone Encounter - Salinas Samuel APRN.CNP - 12/03/2022 8:32 AM EDT Please let the patient know that Dr. Robertson, myself and Anayeli are out of the office today. Patient would need a virtual visit to discuss. Can we assist setting up with a provider that has availability today? Salinas Samuel APRN.PENNY * Telephone Encounter - Tamir Nicholas MD - 12/02/2022 7:59 PM EDT Sent to wrong provider. * Telephone Encounter - Cheryl Arredondo RN - 12/02/2022 6:14 PM EDT patients spouse is calling in stating that patient started with covid s/s yesterday and took a hometest this evening (Thursday) and it was positive. Patient would like to see if an rx for paxlovid can be sent to [facility] for her. please review and advise. patient needs called with information documented in this encounterPremier [facility]03-27-2023 History of Present illness Narrative* Rae Sheth Ma - 12/01/2022 2:20 PM EDT POPULATION HEALTH NAVIGATION OUTREACH Action/FYI Due for colon cancer screening Patient Identified by Name and : YES, via [employer] Outreach Outcome/Action [employer] message sent Did you use a PCP flex slot to schedule this appointment? N/A Reason for Outreach Care Gap or Scheduling/Wellness visits Payer: Payor: [facility] AETNA / Plan: P STAFF/NON STAFF / Product Type: EPO / Care Gap Reviewed:: Colorectal Cancer Screening Reminder: Reminder note to check Health Maintenance for items below Health Maintenance items due: COVID-19 VACCINE(1) Never done HIV SCREENING Never done SHINGRIX VACCINE(1 of 2) Never done COLORECTAL CANCER SCREENING due on 09/07/2020 MAMMOGRAM due on 12/17/2021 INFLUENZA(1) due on 05/08/2022 DEPRESSION ASSESSMENT Never done ANNUAL PCP TEAM CHRONIC DISEASE VISIT due on 11/01/2022 Navigation Signature: Rae Sheth Ma December 01, 2022 2:21 PM documented in this encounterPrem[facility]03-10-2023 Miscellaneous Notes* Telephone Encounter - Jaymie Bernstein MA - 11/14/2022 2:37 PM EST Patient has been notified of message below and verbalized understanding. Patient will review medication and contact our office with her decision. Jaymie Bernstein MA * Telephone Encounter - Michelle Simpson APRN.CNP - 11/14/2022 2:09 PM EST Please call and inform the patient. Her creatinine (measure of kidney function) is mildly elevated.She should stay well hydrated and follow up with her pcp for this. The remaining lab results are within acceptable limits. I recommend treatment for RA with a medication called Rituxan. Rituxan is an infusion given in cycles every 6 months with each cycle consisting of an infusion 2 weeks apart (ie infusions on days 1 and 15 of the cycle, with 2 cycles/year equaling 4 infusions in one year). Potential side effects include an infusion reaction, increased risk for infection and a rare infection called PML which can cause weakness of the extremities and be fatal. I sent further information on Rituxan via my chart. Please ask her to contact me with her decision. Thanks, Michelle Simpson APRN.BUILDING MAINTENANCE SUPERVISOR documented in this encounterPremier Health [facility]03-04-2023 History of Present illness Narrative* Felisa Collier RT(R) - 11/08/2022 9:10 AM EST Radiology Service Progress Note PATIENT NAME: Mariam Minaya DATE OF SERVICE: November 08, 2022 TIME: 9:33 AM PATIENT IDENTITY VERIFICATION COMPLETED USING TWO (2) IDENTIFIERS: Name and Date of confirmedby patient verbally. FALL SCREENING: Has the patient had 2 falls in the last year or 1 fall with injury or currently using an Ambulatory Assistive Device (Walker, Cane, Wheelchair, Crutches, etc.)? No PATIENT GENDER DATA: Female. status: : No status: NO. PATIENT RELEVANT IMPLANT DATA REVIEWED: Yes RADIOLOGY DEPARTMENT: General X-ray: Exam(s) Completed: Lower Extremity X- Ray(s): Foot, Left and Wt. Bearing PERIPHERAL IV DATA: Not applicable SIGNED BY: RT Shiela(R) November 08, 2022 9:33 AM documented in this encounterPremier Health [facility]03-04-2023 History of Present illness Narrative* Felisa Collier RT(R) - 11/08/2022 9:00 AM EST Radiology Service Progress Note PATIENT NAME: Mariam Minaya DATE OF SERVICE: November 08, 2022 TIME: 9:13 AM PATIENT IDENTITY VERIFICATION COMPLETED USING TWO (2) IDENTIFIERS: Name and Date of confirmedby patient verbally. FALL SCREENING: Has the patient had 2 falls in the last year or 1 fall with injury or currently using an Ambulatory Assistive Device (Walker, Cane, Wheelchair, Crutches, etc.)? No PATIENT GENDER DATA: Female. status: : No status: NO. PATIENT RELEVANT IMPLANT DATA REVIEWED: Yes RADIOLOGY DEPARTMENT: General X-ray: Exam(s) Completed: Spine X-Ray(s): Cervical AP / LAT / OBL andThoracic Lower Extremity X-Ray(s): Foot, Left and Wt. Bearing PERIPHERAL IV DATA: Not applicable SIGNED BY: RT Shiela(R) November 08, 2022 9:13 AM documented in this encounterPremier Health [facility]03-03-2023 Miscellaneous Notes* Addendum Note - Michelle Simpson APRN.CNP - 11/07/2022 2:25 PM ESTAddended by: MICHELLE SIMPSON on: 11/07/2022 02:25 PM Modules accepted: Orders documented in this encounterPremier Health [facility]03-03-2023 Instructions* Patient Instructions* Michelle Simpson APRN.CNP - 11/07/2022 1:40 PM EST Please have Plaquenil eye exam results faxed to [phone] documented in this encounterPremier Health [facility]03-03-2023 History of Present illness Narrative* Michelle Simpson APRN.CNP - 11/07/2022 1:30 PM EST Follow-up of seropositive RA HPI: To review, Mariam Minaya is a 62 year old female - Several years ago, diagnosed with RA by Dr. Pino Noble. Initially treated with HCQ 200mg bid and MTX 17.5mg PO weekly/FA (SSZ stopped for low WBC). MTX eventually stopped for high LFTs (and also had blood in urine while on MTX) - Manohar with a significant injection site reaction - Later on HCQ 200mg/day and enbrel for several years. - In February 24, on HCQ 200mg bid and orencia - In Aug, reported feeling poorly with increased pain and swelling wrists, MCPs, PIPs, and DIPs. 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 Orencia switched to enbrel - In Apr, reported 40% improvement with enbrel - In Oct, reported not doing well. Had 75% improvement s/p Aug steroid course. Enbrel switched to simponi - In February, reported 5% improvement of joints with simponi - at [facility], reports not feeling as well as she'd like with simponi. Has needed pred in February, March andSe with significant relief each time on pred. - Needs one more cavity filled, no recent or plans for tooth extraction. No jaw pain - Last plaquenil eye exam normal in Jul PAST MEDICAL HISTORY Diagnosis Date Astigmatism, regular 12/22/2015 Chronic bilateral low back pain with sciatica 12/10/2015 Chronic kidney insufficiency, stage 3 (moderate) (HCC) 04/06/2018 Encounter for gynecological examination 05/03/2019 Seeing the [facility]. 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 RA (rheumatoid arthritis) (HCC) + RF, +CCP OVERLAP PsA (+NAIL disease, dactylitis, axial inflammatory sx) Sjogren's syndrome (HCC) Neg SSA SSB in January 2009 Thyroid cancer (HCC) 09/07/[address] Maldonado removed, radioactive iodine ablation. papillary Vitamin D deficiency PAST SURGICAL HISTORY Procedure Laterality Date BREAST AUGMENTATION W/PROSTHETIC IMPLANT 2000 bilateral implants BX BREAST PERC NEED W/GUID 10/29/11 U/S needle core left axillary LN COLONOSCOPY FLX DX W/COLLJ SPEC WHEN PFRMD 09/07/2010 Colonoscopy, repeat 10 yrs EGD TRANSORAL BIOPSY SINGLE/MULTIPLE 11/06/06 Hiatal hernia, gastritis, retained food ESOPHAGOGASTRODUODENOSCOPY TRANSORAL DIAGNOSTIC EGD ESOPHAGOGASTRODUODENOSCOPY TRANSORAL DIAGNOSTIC 03/15/2015 EGD FNA (FINE NEEDLE ASPIRATION) 10/15/06 U/S FNA right thyroid nodule FNA WITH IMAGING 09/22/11 U/S FNA left axillary mass KNEE ARTHROSCOPY Left 2009 LIG/TRNSXJ FLP TUBE ABDL/VAG APPR UNI/BI Tubal ligation NEUROPLASTY &/TRANSPOS MEDIAN NRV CARPAL TUNNE Left 05/30/16 Carpal tunnel decomp NEUROPLASTY &/TRANSPOS MEDIAN NRV CARPAL TUNNE Right 09/26/2016 Carpal tunnel decomp PAST SURGICAL HISTORY OF 2010 removal of implants & replace & pannilectomy SYNOVECTOMY EACH 1999 left wrist THYROIDECTOMY TOTAL/COMPLETE 11/10/06 TONSILLECTOMY & ADENOIDECTOMY <AGE 12 Tonsillectomy VAGINAL HYSTERECTOMY UTERUS 250 GM/< 2004 Hysterectomy, vaginal ALLERGIES Allergen Reactions Flovent [Fluticason* Rash Amicar [Aminocaproi* Rash Humira [Adalimumab] Hives welt at injection site Tessalon [Benzonata* Other: See Comments hypersensitive Albuterol Other: See Comments severe leg cramps Methotrexate Contraindication-Medical Surgical elevated liver enz INTERVAL HISTORY She is here for follow up. She stopped simponi and started actemra after the [facility]. She started actemra in 06/2022. She reports minimal improvement (2%) with this. She tolerates it well. She was prescribed a steroid course in 09/2022. She reports 45-50% improvement of her joint symptomswith this. She received her first reclast infusion on 08/08/2022. She reports pain, vomiting, and sweating within 3 hours of receiving the infusion. She went to the ED the next day. She is not sure if she wants to continue this. She fracture the L first distal phalanx after hitting her foot on a dresser in 09/2022. Pain is not worse any certain time of day. She takes ibuprofen for pain. Sites of pain: hands, neck, thoracic spine, feet, knees, pain rated 4-5/10 Joint swelling: hands, b/ knees EMS: yes, lasting until 1 or 2 pm No recent infections. Tolerating meds. Answers submitted by the patient for this visit: Review of Systems Rheumatology (Submitted on 11/05/2022) Fever : No Recent Unintentional Weight Change: No Eye Pain: No Eye Redness: No Vision Disturbance: No Eye Dryness: Yes Nose Bleeds: Yes Sores in your Mouth: No Trouble Swallowing: No Dry Mouth: Yes Chest Pain: Yes Leg Swelling: Yes A Cough: Yes Blood when you Cough: No Shortness of Breath: Yes Pain with Breathing: Yes Heartburn: Yes Abdominal Pain: No Diarrhea: No Black Tarry Stools: No Blood in Urine: No Pain or Burning with Urination: No Joint Pain or Stiffness: Yes Muscle Weakness: Yes Muscle Aches: Yes Joint Swelling: Yes Morning Stiffness in Joints: Yes A Rash: Yes Do you have sun sensitive rashes?: No Skin Color Changes: Yes Hair Loss: Yes Nail Changes: Yes Headaches: Yes Numbness: Yes Memory Loss: No Swollen Glands: No Current Outpatient Medications Medication Sig Ujadaybysjwhqkf-Xvuqdjavy-SG 2-30-10 mg/5 mL syrup Take 5 mL by mouth four times daily as needed. predniSONE (DELTASONE) 10 mg tablet Take by mouth with food. Take 3 tablets daily for 1 week, then 2 tablets daily for 1 week, then 1 tablet daily for 1 week, then stop levothyroxine (SYNTHROID) 125 mcg tablet Take 1 tablet by mouth once daily. Take on empty stomach. For Thyroid tocilizumab 162 mg/0.9 mL Inject 1 pen (162mg) subcutaneously every 2 weeks. hydrOXYchloroQUINE (PLAQUENIL) 200 mg tablet Take 1.5 tablets by mouth once daily. (Patient not taking: Reported on 10/16/2022) ergocalciferol 50,000 unit capsule (VITAMIN D2, DRISDOL) TAKE 1 CAPSULE BY MOUTH TWO TIMES A WEEK. omeprazole (PRILOSEC) 20 mg capsule Take 1 capsule by mouth daily before breakfast, a half hour before meal. buPROPion XL (WELLBUTRIN XL) 150 mg 24 hr tablet Take 1 tablet by mouth once daily. clotrimazole-betamethasone (LOTRISONE) cream Apply to affected area twice daily. (Patient not taking: Reported on 09/25/2022) Cholecalciferol, Vitamin D3, 50 mcg (2,000 unit) cap Take 1 capsule by mouth twice daily. polyethylene glycol 3350 (MIRALAX) 17 gram/dose powder 17gm in 8oz daily until stools regular (for constipation) cyclobenzaprine (FLEXERIL) 10 mg tablet Take 1 tablet by mouth twice daily as needed. (Patient not taking: Reported on 10/16/2022) vitamin b complex tab Take 1 tablet by mouth once daily. No current facility-administered medications for this visit. FAMILY HISTORY Problem Relation Age of Onset Cancer Father None Mother Diabetes Brother from type I dx/d age 9 Breast Cancer Sister Thyroid Sister cancer Diabetes Grandchild Type I age 8 SOCIAL HISTORY: Lives in [place] with . He works in [employer] at [employer] Tobacco use: None Alcohol use: None Drug use: None PHYSICAL EXAM: BP 135/83 Pulse 74 Temp 36.4 C (97.6 F) (Temporal) Ht 170.2 cm (5' 7) Wt 78.5 kg (173 lb) BMI 27.10 kg/m CONSTITUTIONAL: Well-appearing, in NAD. SKIN: No rash. No sclerodactyly, calcinosis, telangiectasias, digital ulcers, or skin thickening. EYES: No scleral icterus or conjunctivitis ENT and Mouth: External ears normal. RESPIRATORY: Normal breath sounds, clear to auscultation. CARDIOVASCULAR: Regular rate and rhythm, no murmurs or rubs EXTREMITIES/LYMPH: No edema bilaterally NEURO: Awake, alert and oriented MUSCULOSKELETAL: JOINT APPEARANCE: Heberden's nodes present bilaterally. No erythema or warmth of any upper or lowerextremity joint. RANGE OF MOTION: Unable to fully close fists bilaterally. SWOLLEN JOINTS/SYNOVITIS: b/l mcp's, b/l pip's TENDER JOINTS: Tenderness to palpation of the bilateral wrists, MCPs, PIPs, DIPs, L ankle No tenderness to spine or SI joints + b/l knee crepitus *Aug Widespread Pain Index: 13 (0-19) Symptoms Severity Scale: 9 (0-12) WPI>7 and SS Scale>5 OR WPI 3-6 and SS Scale >9 consistent with fibromyalgia Labs reviewed and discussed with the patient: Component Latest Ref Rng & Units 06/11/2022 TB Nil <=8.00 IU/mL 0.06 TB Interpretation Infection with M. tuberculosis complex is unlikely. If latent tuberculosis infection is highly suspected, a negative result does not rule out the infection. Specimens from immunocompromised patients and those <5 years of age may show false negative results. In case of a contactinvestigation, please repeat 8-12 weeks after a known exposure. TB1 Ag minus Nil <0.35 IU/mL 0.01 TB2 Ag minus Nil <0.35 IU/mL 0.01 TB Result Negative Mitogen minus Nil >=0.50 IU/mL >9.94 Component Latest Ref Rng & Units 06/11/2022 Creatinine 0.58 - 0.96 mg/dL 0.91 eGFR >=60 mL/min/1.73m 72 Vitamin D 25 Hydroxy 31.0 - 80.0 ng/mL 55.1 Calcium 8.5 - 10.2 mg/dL 9.3 Component Latest Ref Rng & Units 02/06/2022 WBC 3.70 - 11.00 k/uL 7.00 RBC 3.90 - 5.20 m/uL 4.30 Hemoglobin 11.5 - 15.5 g/dL 12.3 Platelet Count 150 - 400 k/uL 285 Creatinine 0.58 - 0.96 mg/dL 0.74 eGFR >=60 mL/min/1.73m 92 AST 13 - 35 U/L 24 ALT 7 - 38 U/L 16 Albumin 3.9 - 4.9 g/dL 4.0 Vitamin D 25 Hydroxy 31.0 - 80.0 ng/mL 25.4 (L) Calcium 8.5 - 10.2 mg/dL 8.9 Component Latest Ref Rng & Units 10/17/2021 Hep B Core Ab, Total Negative Negative Hep C Antibody IA Negative Negative Hep B Surface Ag Negative Negative Hep B Surface Ab, Qual Negative Negative Component Latest Ref Rng & Units 08/13/2020 c-ANCA Fluorescence Negative Negative p-ANCA Fluorescence Negative Negative Proteinase-3 Antibody <1.0 AI <0.2 Myeloperoxidase Antibody (MPO) <1.0 AI <0.2 Interpretation (ANCA) Equivocal staining seen on the ethanol (indirect immunofluorescence screen) slide . . . Staff Review (ANCA) Reviewed by Alexi Liu, Ph.D, D(ABMLI) Myeloperoxidase AutoAb <1.0 AI Duplicate request Proteinase 3 Antibody <1.0 AI Duplicate request Rheumatoid Factor <16 IU/mL 45 (H) CCP Antibody, IgG <20 Units >250 (H) *Oct 26 +RF 88 with unremarkable SSA, SSB, Jo1, PACKAGING CLERK, Sm, centromere, Scl *Sep 25 +CCP>250 and +MARCO [place]IO with unremarkable wbc, hgb, plt, cr, alt, ast, hep b/c and quantiferongold *2007 positive RF 35, CCP>100 STUDIES: *December CT chest- No CT evidence of interstitial lung disease. *Sep DXA- Osteopenia in the lumbar spine and left femoral neck. LUMBAR SPINE: The bone mineral density from L1 through L4 is 0.879 grams per square centimeter which yields a T-score of -1.5. LEFT HIP: The bone mineral density of the total region of the hip is 0.840 grams per square centimeter which yields a T-score of -0.8. LEFT FEMORAL NECK: The bone mineral density of the femoral neck is 0.631 grams per square centimeter which yields a T-score of -2.0. 10-year Fracture Risk (FRAX): Major osteoporotic fracture risk 19% Hip fracture risk 3.0% *Aug xray hands- SOFT TISSUE SWELLING ADJACENT TO THE RIGHT SECOND MCP JOINT HAS SLIGHTLY INCREASED AND THERE IS INCREASED SOFT TISSUE SWELLING ADJACENT TO THE DISTAL RIGHT ULNA SMALL REMOTE APPEARING EROSIONS THAT WOULD BE COMPATIBLE WITH THE HISTORY OF RHEUMATOID ARTHRITIS APPEAR UNCHANGED. NO NEW EROSIONS *May xray L tib/fibula- Mild soft tissue swelling with no radiographic evidence of acute osseous injury. *February CXR- no acute changes IMPRESSION and PLAN: 1. Seropositive erosive RA: Wrist and MCP pain/swelling in the setting of RF and CCP positivity. Has been on numerous medications: HCQ, MTX (high LFTs, blood in urine), humira (injection site reaction), enbrel (lost efficacy) and orencia (ineffective). December CT chest without ILD (follows with Dr. Nilam Banda of pul). No improvement with Simponi or Actemra. - Continue HCQ 300mg/day along with routine ophthalmology follow-up (last normal in 2021, per patient). I asked that she have the results faxed to our office. - will discontinue actemra -will discuss treatment recommendations with Dr. Alonzo and contact the patient - Started prednisone 30mg/day with taper for short-term relief. Written instructions and side effects previously provided. She was advised to avoid NSAIDS while taking the steroids. - Check labs. Notify of results via [employer] 2. Osteopenia: No hx of fracture. Sep DXA with high FRAX. Started reclast 08/08/2022. - she reports reaction (pain, vomiting, and sweating) to reclast infusion in 08/2022. She is not sure if she wants to continue reclast in the future. - Calcium/vit D supplementation - Check DEXA in Sep 3. Fibromyalgia: Meets criteria for this as above. - Continue monitoring 4. General health maintenance: Defers vaccines, states she gets sick from them for a while - Advised to continue follow-up with PCP for routine health maintenance and malignancy screening Follow-up in 3 months or sooner if needed. Patient was instructed to call if any questions or concerns. Thank you for allowing me to participate in the care of your patient. I spent a total of 20 minutes on the date of the service which included preparing to see the patient, [id number] patient care, completing clinical documentation, performing a medically appropriate examination, ordering medications, tests, or procedures, and communicating results to the patient/fam mike/caregiver. Michelle Simpson APRN.PENNY documented in this encounterPremier Health [facility]02-09-[facility] History of Present illness Narrative* SHANNON Jensen - 10/16/2022 12:54 PM EST This note was created using [employer]. Subjective Mariam Minaya is a 62 year old female. HPI 62-year-old female presents for cough, congestion, low-grade fevers x3 to 4 days. Patient states on Thursday she started getting a cough. States that sounds wet in her chest. She is coughing up a little bit of phlegm. She states she has a lot of sinus congestion and sinus pressure. She has been having headaches. She has a small amount of diarrhea. She states that she feels feverish and has been having low-grade fevers and sweating at home. No history of COPD or asthma. No chest pain or shortness of breath. No abdominal pain or vomiting. PAST MEDICAL HISTORY Diagnosis Date Astigmatism, regular 12/22/2015 Chronic bilateral low back pain with sciatica 12/10/2015 Chronic kidney insufficiency, stage 3 (moderate) (HCC) 04/06/2018 Encounter for gynecological examination 05/03/2019 [facility]. 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 RA (rheumatoid arthritis) (HCC) + RF, +CCP OVERLAP PsA (+NAIL disease, dactylitis, axial inflammatory sx) Sjogren's syndrome (HCC) Neg SSA SSB in January 2009 Thyroid cancer (HCC) 09/07/[address] Maldonado removed, radioactive iodine ablation. papillary Vitamin D deficiency PAST SURGICAL HISTORY Procedure Laterality Date BREAST AUGMENTATION W/PROSTHETIC IMPLANT 2000 bilateral implants BX BREAST PERC NEED W/GUID 10/29/11 U/S needle core left axillary LN COLONOSCOPY FLX DX W/COLLJ SPEC WHEN PFRMD 09/07/2010 Colonoscopy, repeat 10 yrs EGD TRANSORAL BIOPSY SINGLE/MULTIPLE 11/06/06 Hiatal hernia, gastritis, retained food ESOPHAGOGASTRODUODENOSCOPY TRANSORAL DIAGNOSTIC EGD ESOPHAGOGASTRODUODENOSCOPY TRANSORAL DIAGNOSTIC 03/15/2015 EGD FNA (FINE NEEDLE ASPIRATION) 10/15/06 U/S FNA right thyroid nodule FNA WITH IMAGING 09/22/11 U/S FNA left axillary mass KNEE ARTHROSCOPY Left 2009 LIG/TRNSXJ FLP TUBE ABDL/VAG APPR UNI/BI Tubal ligation NEUROPLASTY &/TRANSPOS MEDIAN NRV CARPAL TUNNE Left 05/30/16 Carpal tunnel decomp NEUROPLASTY &/TRANSPOS MEDIAN NRV CARPAL TUNNE Right 09/26/2016 Carpal tunnel decomp PAST SURGICAL HISTORY OF 2010 removal of implants & replace & pannilectomy SYNOVECTOMY EACH 1999 left wrist THYROIDECTOMY TOTAL/COMPLETE 11/10/06 TONSILLECTOMY & ADENOIDECTOMY <AGE 12 Tonsillectomy VAGINAL HYSTERECTOMY UTERUS 250 GM/< 2004 Hysterectomy, vaginal ALLERGIES Flovent [Fluticasone], Amicar [Aminocaproic Acid], Humira [Adalimumab], Tessalon [Benzonatate], Albuterol, and Methotrexate MEDICATIONS predniSONE (DELTASONE) 10 mg tablet Take by mouth with food. Take 3 tablets daily for 1 week, then 2 tablets daily for 1 week, then 1 tablet daily for 1 week, then stop levothyroxine (SYNTHROID) 125 mcg tablet Take 1 tablet by mouth once daily. Take on empty stomach. For Thyroid tocilizumab 162 mg/0.9 mL Inject 1 pen (162mg) subcutaneously every 2 weeks. ergocalciferol 50,000 unit capsule (VITAMIN D2, DRISDOL) TAKE 1 CAPSULE BY MOUTH TWO TIMES A WEEK. omeprazole (PRILOSEC) 20 mg capsule Take 1 capsule by mouth daily before breakfast, a half hour before meal. buPROPion XL (WELLBUTRIN XL) 150 mg 24 hr tablet Take 1 tablet by mouth once daily. Cholecalciferol, Vitamin D3, 50 mcg (2,000 unit) cap Take 1 capsule by mouth twice daily. polyethylene glycol 3350 (MIRALAX) 17 gram/dose powder 17gm in 8oz daily until stools regular (for constipation) vitamin b complex tab Take 1 tablet by mouth once daily. hydrOXYchloroQUINE (PLAQUENIL) 200 mg tablet Take 1.5 tablets by mouth once daily. (Patient not taking: Reported on 10/16/2022) clotrimazole-betamethasone (LOTRISONE) cream Apply to affected area twice daily. (Patient not taking: Reported on 09/25/2022) cyclobenzaprine (FLEXERIL) 10 mg tablet Take 1 tablet by mouth twice daily as needed. (Patient not taking: Reported on 10/16/2022) FAMILY HISTORY Problem Relation Age of Onset Cancer Father None Mother Diabetes Brother from type I dx/d age 9 Breast Cancer Sister Thyroid Sister cancer Diabetes Grandchild Type I age 8 Social History Tobacco Use Smoking status: Never Smokeless tobacco: Never Vaping Use Vaping Use: Never used Substance Use Topics Alcohol use: No Comment: rare ; deo. wine Drug use: No Review of Systems Constitutional: Positive for fever. Negative for chills. HENT: Positive for congestion, sinus pressure, sinus pain and sore throat. Negative for ear pain. Respiratory: Positive for cough. Negative for shortness of breath. Cardiovascular: Negative for chest pain. Gastrointestinal: Negative for diarrhea and vomiting. Objective BP 132/88 Pulse 102 Temp 37.3 C (99.2 F) Resp 21 Wt 79.7 kg (175 lb 12.8 oz) SpO2 98% BMI 27.53 kg/m Physical Exam Vitals and nursing note reviewed. Constitutional: General: She is not in acute distress. Appearance: Normal appearance. She is not toxic-appearing. HENT: Right Ear: Tympanic membrane and ear canal normal. Left Ear: Tympanic membrane and ear canal normal. Nose: Congestion present. Mouth/Throat: Mouth: Mucous membranes are moist. Pharynx: No oropharyngeal exudate or posterior oropharyngeal erythema. Eyes: Conjunctiva/sclera: Conjunctivae normal. Cardiovascular: Rate and Rhythm: Normal rate and regular rhythm. Pulmonary: Effort: Pulmonary effort is normal. Breath sounds: Wheezing present. Neurological: Mental Status: She is alert. Assessment and Plan ASSESSMENT/PLAN: 1. URI, acute - ICD9: 465.9, ICD10: J06.9 (primary diagnosis) - Discussed viral etiology and rationale for treatment. - Symptomatic treatment with prn analgesia - Supportive care with fluids and rest - XR CHEST 2V FRONTAL/LAT - COVID WITH FLUA+B, ROUTINE -Out of window for Tamiflu. 2. Acute cough - ICD9: 786.2, ICD10: R05.1 - XR CHEST 2V FRONTAL/LAT -No acute radiographic abnormality seen on CXR. -Rx Bromphed. -Currently on prednisone taper for unrelated conditions. 3. Wheezing - ICD9: 786.07, ICD10: R06.2 -Allergy to albuterol and several other inhalers. She will continue her prescribed inhaler at home. -Rx for Bromphed. -Currently on prednisone taper. Diagnosis and treatment plan were discussed and questions were answered to the patient's satisfaction. Pt acknowledged understanding of concepts and follow up plan. Specific signs and symptoms that would indicate the need for higher level of care were discussed in detail warranting prompt ER evaluation. SHANNON Jensen documented in this encounterPrem[facility]02-09-2023 History of Present illness Narrative* Azra Mcknight - 10/16/2022 11:46 AM EST [facility] Refill Assessment Medication(s): Actemra Patient's current medication list and adherence status to current therapy were reviewed by Specialty Pharmacy clinical pharmacist to identify any new drug interactions or non-compliance to therapy. Therapy continues to be appropriate for disease, patient response, and medical condition. Verification of therapeutic benefit and effectiveness with current therapy was completed. Adverse events, barriers in adherence, and side effects were assessed and addressed if applicable. Will proceed with refill with no changes in therapy - patient progressing towards achieving therapeutic goals based on medication- specific laboratory parameters, disease state markers and outcomes. Rand Sewer Assessment Patient confirmed: Yes Med/dose confirmed: Yes Supplies needed: No supplies needed Missed doses: No Estimated days supply on hand: 0 Next cycle/dose due: 10/22/22 Copay amount: 0 Payment confirmed: Yes Delivery method: FedEx Signature required: No Delivery address: [facility] [place] [address] Delivery date: 10/21/22 Questions or concerns for the pharmacist?: No [facility] Assessment - Inflammatory Conditions: Assessment to use: Refill Vaccination Assessment: Date of influenza vaccination reminder: 06/18/2022 Date of most recent vaccination assessment: 06/18/2022 Treatment Plan Information: Treatment Plan Information: Actemra Actpen 162mg/0.9mL - Inject 1 pen (162mg) subcutaneously every 2 weeks. M05.9 - seropositive rheumatoid arthritis Est. Tx Plan Start Date: 06/26/2022 Estimated Treatment Duration: Until loss of efficacy and/or no longer tolerated. Azra Mcknight CPhT [facility] documented in this encounterPremier [facility]02-06-2023 History of Present illness Narrative* Azra Mcknight - 10/13/2022 1:13 PM EST Benefits investigation was conducted, indicating that a prior authorization renewal is required by patient's insurance plan with [facility]. Encounter will be updated once prior authorization has been submitted by [facility]. * Azra Mcknight - 10/13/2022 1:13 PM EST [facility] has been servicing patient for cycles/refills of Actemra. Benefits investigation was conducted, indicating that a prior authorization renewal is required. Prior authorization was initiated via email and is pending review. Plan Name: [facility] Phone/ , opt Email: [email or web address] Azra Mcknight CPhT [facility] documented in this encounterPremier Health [facility]01-26-2023 Miscellaneous Notes* Telephone Encounter - Michelle Simpson APRN.CNP - 10/02/2022 11:17 AM EST The following approved medication requests have been transmitted electronically. Requested Prescriptions Signed Prescriptions Disp Refills predniSONE (DELTASONE) 10 mg tablet 42 tablet 0 Sig: Take by mouth with food. Take 3 tablets daily for 1 week, then 2 tablets daily for 1 week, then 1 tablet daily for 1 week, then stop Authorizing Provider: MICHELLE SIMPSON APRN.CNP * Telephone Encounter - Naya Daniel RP - 10/02/2022 11:10 AM EST Pharmacist Refill Authorization Review Name: Mariam Minaya Date: 10/02/2022 Time: 11:11 AM Refill authorization request(s) received and reviewed under effective consult agreement. Upon review, did confirm that an active patient-provider relationship exists and that the prescriber is a participating physician under the consult agreement. Last office visit in this department: 06/11/2022 Kenneth Alonzo MD Last distance health visit in this department: 08/07/2020 Kenneth Alonzo MD Next appointment in this department: 11/07/2022 Michelle Simpson APRN.CNP The medication(s) fall under the following categories: Category 3: Medication(s) does not qualify for pharmacist renewal due to unclear duration of therapy and medication excluded from collaborative practice agreement. Renewal request sent to provider for review. Requested Prescriptions Pending Prescriptions Disp Refills predniSONE (DELTASONE) 10 mg tablet 42 tablet 0 Sig: Take by mouth with food. Take 3 tablets daily for 1 week, then 2 tablets daily for 1 week, then 1 tablet daily for 1 week, then stop Number of refills approved in this encounter: 0 Number of refills forwarded to provider for review: 1 Number of refills denied in this encounter: 0 Naya Daniel RPh documented in this encounterPremier [facility]01-25-2023 Miscellaneous Notes* Telephone Encounter - Joni Marroquin - 10/01/2022 9:37 AM EST I called patient today regarding her xrays. Xrays do show a nondisplaced fracture of the tuft of left hallux. Would have her continue with post-op shoe or boot. She has boot for midfoot sprain so shewill continue with this. Will repeat xrays in 1 month Joni Marroquin DPM documented in this encounterPremier [facility]01-19-2023 History of Present illness Narrative* Shaniqua Cabral RT(R) - 09/25/2022 2:30 PM EST Radiology Service Progress Note PATIENT NAME: Mariam Minaya DATE OF SERVICE: September 25, 2022 TIME: 3:08 PM PATIENT IDENTITY VERIFICATION COMPLETED USING TWO (2) IDENTIFIERS: Name and Date of confirmedby patient verbally. FALL SCREENING: Has the patient had 2 falls in the last year or 1 fall with injury or currently using an Ambulatory Assistive Device (Walker, Cane, Wheelchair, Crutches, etc.)? No PATIENT GENDER DATA: Female. status: : No status: NO. PATIENT RELEVANT IMPLANT DATA REVIEWED: Not Applicable RADIOLOGY DEPARTMENT: General X-ray: Exam(s) Completed: Lower Extremity X- Ray(s): Foot, Left and Wt. Bearing PERIPHERAL IV DATA: Not applicable SIGNED BY: RT Jeffrey(R) September 25, 2022 3:08 PM documented in this encounterPremier Health [facility]01-19-2023 History of Present illness Narrative* Karen Townsend RN - 09/25/2022 2:[address] Marroquin, Mariam was provided with airselect short cast, size M, and Original powerstep insoles. Patient instructed/educated in its application, wear, and care. All questions were answered, and patient was able to demonstrate competence with the necessary skills to utilize the above equipment. Patient signed DJO Patient agreement. [employer] to bill patient's insurance for boot. Karen Townsend RN * Joni Marroquin - 09/25/2022 1:54 PM EST Consultation requested by Dr. Fitzpatrick for an opinion regarding left foot pain. My final recommendations will be communicated back to the requesting physician by way of shared Medical record or letter to requesting physician via US mail. Initial Podiatric Office Visit: Chief Complaint: This 62 year old female who presents with chief complaint:left foot injury HPI Patient presents to clinic for evaluation of left foot. Patient states that last month, she trippedover her dog and she subsequently stubbed her foot. She developed pain across the midfoot and developed bruising. She went to the urgent care the next day and had xrays taken. Xrays were concerning for fracture. She was given crutches and surgical shoe. Patient is now wearing regular shoes. She states the pain is better but she still has pain with walking. PAIN EVALUATION 09/25/2022 1344 Pain Level: 3 Pain Location: Foot-Left Description: Aching;Sore Duration Amount of Time: 1 Duration Units: Months Frequency: Intermittent Intervention/Comfort measure: Reposition;Relaxation;Medication Hemoglobin A1C (%) Date Value 05/03/2019 5.4 12/27/2014 5.5 PCP: Laura Robertson MD PAST MEDICAL HISTORY Diagnosis Date Astigmatism, regular 12/22/2015 Chronic bilateral low back pain with sciatica 12/10/2015 Chronic kidney insufficiency, stage 3 (moderate) (HCC) 04/06/2018 Encounter for gynecological examination 05/03/2019 [facility]. 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 RA (rheumatoid arthritis) (HCC) + RF, +CCP OVERLAP PsA (+NAIL disease, dactylitis, axial inflammatory sx) Sjogren's syndrome (HCC) Neg SSA SSB in January 2009 Thyroid cancer (HCC) 09/07/[address] Joel de los santos, radioactive iodine ablation. papillary Vitamin D deficiency Current Outpatient Medications Medication Sig predniSONE (DELTASONE) 10 mg tablet Take by mouth with food. Take 3 tablets daily for 1 week, then 2 tablets daily for 1 week, then 1 tablet daily for 1 week, then stop levothyroxine (SYNTHROID) 125 mcg tablet Take 1 tablet by mouth once daily. Take on empty stomach. For Thyroid tocilizumab 162 mg/0.9 mL Inject 1 pen (162mg) subcutaneously every 2 weeks. hydrOXYchloroQUINE (PLAQUENIL) 200 mg tablet Take 1.5 tablets by mouth once daily. ergocalciferol 50,000 unit capsule (VITAMIN D2, DRISDOL) TAKE 1 CAPSULE BY MOUTH TWO TIMES A WEEK. omeprazole (PRILOSEC) 20 mg capsule Take 1 capsule by mouth daily before breakfast, a half hour before meal. buPROPion XL (WELLBUTRIN XL) 150 mg 24 hr tablet Take 1 tablet by mouth once daily. Cholecalciferol, Vitamin D3, 50 mcg (2,000 unit) cap Take 1 capsule by mouth twice daily. polyethylene glycol 3350 (MIRALAX) 17 gram/dose powder 17gm in 8oz daily until stools regular (for constipation) cyclobenzaprine (FLEXERIL) 10 mg tablet Take 1 tablet by mouth twice daily as needed. vitamin b complex tab Take 1 tablet by mouth once daily. clotrimazole-betamethasone (LOTRISONE) cream Apply to affected area twice daily. (Patient not taking: Reported on 09/25/2022) No current facility-administered medications for this visit. ALLERGIES Allergen Reactions Flovent [Fluticason* Rash Amicar [Aminocaproi* Rash Humira [Adalimumab] Hives welt at injection site Tessalon [Benzonata* Other: See Comments hypersensitive Albuterol Other: See Comments severe leg cramps Methotrexate Contraindication-Medical Surgical elevated liver enz PAST SURGICAL HISTORY Procedure Laterality Date BREAST AUGMENTATION W/PROSTHETIC IMPLANT 2000 bilateral implants BX BREAST PERC NEED W/GUID 10/29/11 U/S needle core left axillary LN COLONOSCOPY FLX DX W/COLLJ SPEC WHEN PFRMD 09/07/2010 Colonoscopy, repeat 10 yrs EGD TRANSORAL BIOPSY SINGLE/MULTIPLE 11/06/06 Hiatal hernia, gastritis, retained food ESOPHAGOGASTRODUODENOSCOPY TRANSORAL DIAGNOSTIC EGD ESOPHAGOGASTRODUODENOSCOPY TRANSORAL DIAGNOSTIC 03/15/2015 EGD FNA (FINE NEEDLE ASPIRATION) 10/15/06 U/S FNA right thyroid nodule FNA WITH IMAGING 09/22/11 U/S FNA left axillary mass KNEE ARTHROSCOPY Left 2009 LIG/TRNSXJ FLP TUBE ABDL/VAG APPR UNI/BI Tubal ligation NEUROPLASTY &/TRANSPOS MEDIAN NRV CARPAL TUNNE Left 05/30/16 Carpal tunnel decomp NEUROPLASTY &/TRANSPOS MEDIAN NRV CARPAL TUNNE Right 09/26/2016 Carpal tunnel decomp PAST SURGICAL HISTORY OF 2010 removal of implants & replace & pannilectomy SYNOVECTOMY EACH 1999 left wrist THYROIDECTOMY TOTAL/COMPLETE 11/10/06 TONSILLECTOMY & ADENOIDECTOMY <AGE 12 Tonsillectomy VAGINAL HYSTERECTOMY UTERUS 250 GM/< 2004 Hysterectomy, vaginal FAMILY HISTORY Problem Relation Age of Onset Cancer Father None Mother Diabetes Brother from type I dx/d age 9 Breast Cancer Sister Thyroid Sister cancer Diabetes Grandchild Type I age 8 Social History Tobacco Use Smoking status: Never Smokeless tobacco: Never Vaping Use Vaping Use: Never used Substance Use Topics Alcohol use: No Comment: rare ; deo. wine Drug use: No REVIEW OF SYSTEMS GENERAL: Negative for Malaise, significant weight loss, fever RESPIRATORY: Negative for cough, wheezing and shortness of breath CARDIOVASCULAR: Negative for chest pain, leg swelling and palpitations GI: Negative for abdominal discomfort, blood in stools or black stools and change in bowel habits : Negative for dysuria, frequency and incontinence MUSCULOSKELETAL: Negative for joint pain or swelling, back pain, and muscle pain. SKIN: Negative for lesions, rash, and itching. HEMATOLOGY/LYMPHOLOGY Negative for prolonged bleeding, bruising easily, and swollen nodes. ENDOCRINE: Negative for cold or heat intolerance, polyuria, polydipsia and goiter. NEURO: negative Physical Exam: Constitutional: Pt is a well developed 62 year old female who is alert, oriented and cooperative Eyes: Following during examination. No redness or drainage. Respiratory: RR normal and nonlabored. Even breathing. No evidence of distress or shortness of breath. Psychology: Patient is engaged during conversation. Normal affect and mood. Does not appear depressed or anxious during encounter. Vascular: Dorsalis pedis and posterior tibial pulses palpable as b/l Capillary Fill time < 5 seconds to digits 1-5 b/l Skin temperature warm to warm proximal to distal b/l Hair growth present to digits Neurological: intact light touch/epicritic sensation b/l intact protective sensation no significant neurological deficits Dermatological: Nails 1-5 b/l appear discolored and thick. Webspaces clean and dry 1-4 b/l. Skin appears well hydrated and supple. good color, texture, turgor. No open lesions present. No callosities present. Musculoskeletal/Orthopaedic: Patient has pain to palpation of left midfoot, most pronounced along the 2nd tarsal metatarsal joint Foot type is neutral structurally AJ ROM is full with knee extended and flexed 1st MPJ is full when loaded and no pain or crepitus are noted with ROM. MTJ, STJ are full and free of pain and crepitus. +5/5 muscle strength dorsiflexion, plantarflexion, inversion, eversion b/l Radiographs: 3 views left foot reviewed. I have personally reviewed and interpreted these XR myself: there is avulsion fracture of tarsal metatarsal joint ASSESSMENT: (S42.411Z) Foot sprain, left, initial encounter (primary encounter diagnosis) onychodystrophy PLAN: 1. History and physical examination performed. 2. XR reviewed with patient and interpreted today 3. Will repeat xrays today as she continues to have pain. I would like to check xrays to assure thealignment of tarsal metatarsal joint is maintained. If no joint dislocation, will possibly allow her to use powerstep insert with firm sole sneaker. For now, will use boot. Discussed risk of dvt while in boot 4. We discussed the possible etiologies of discolored, dystrophic, and thickened nails including fungus, yeast, mold as well as in some instances, prior trauma, or mechanical causes such as repetitive microtrauma in shoe gear. We discussed topical medication for discolored toenails which has very low success but no major side effects. We discussed oral medication. Patient will need hepatic testing prior to use. Patient informed of risks associated with Lamisil. We discussed removal of toenails.Patient to consider options. Joni Marroquin DPM Podiatry [address] [facility] [address] Dept: [phone] Dept * Kristina Nelson LPN - 09/25/2022 1:43 PM EST AMB ROOMING INTAKE FLOWSHEET DATA Pain Pain Level: 3 Pain Location: Foot-Left Description: Aching, Sore Duration Amount of Time: 1 Duration Units: Months Frequency: Intermittent Intervention/Comfort measure: Reposition, Relaxation, Medication Patient presents with: Left Foot - New, Pain, Fracture Kristina Nelson LPN documented in this encounterPremier [facility]01-19-2023 Instructions* Patient Instructions* Joni Marroquin - 09/25/2022 2:00 PM EST Powerstep Original Full length. Can purchase at [employer] here in [place], [employer] in [place] or [place]. Also can find in [place] in [facility]. Powersteps can also be purchased online, starting around $25.00 If you have a metatarsal or dancer pad for your feet apply the pad directly to the insole so you can interchange between your shoes. Find a shoe with a removable insole and take this out and replace with your powerstep insole. Always bring powersteps with you when shopping for shoes so that you can make sure that everything fits well together documented in this encounterPremier Health [facility] Center12-30-2022 Miscellaneous Notes* Telephone Encounter - Jaymie Bernstein MA - 09/05/2022 11:11 AM EST Patient has been notified of message below and verbalized understanding. Jaymie Bernstein MA * Telephone Encounter - Michelle Simpson APRN.CNP - 09/05/2022 11:04 AM EST Please advise the patient to avoid NSAIDS (motrin, ibuprofen, aleve, etc.) while taking the steroids. The following approved medication requests have been transmitted electronically. Requested Prescriptions Signed Prescriptions Disp Refills predniSONE (DELTASONE) 10 mg tablet 42 tablet 0 Sig: Take by mouth with food. Take 30mg(3 tabs)/day x1 week, then 20mg (2 tabs)/day x1 week, then 10mg (1 tab)/day x1 week, then stop Authorizing Provider: MICHELLE SIMPSON APRN.CNP * Telephone Encounter - Shaniqualindsay Parks [facility] - 09/05/2022 10:55 AM EST Pharmacist Refill Authorization Review Name: Mariam Newtoncristelagiovanni Date: 09/05/2022 Time: 10:55 AM Refill authorization request(s) received and reviewed under effective consult agreement. Upon review, did confirm that an active patient-provider relationship exists and that the prescriber is a participating physician under the consult agreement. Last office visit in this department: 06/11/2022 Kenneth Alonzo MD Last distance health visit in this department: 08/07/2020 Kenneth Alonzo MD Next appointment in this department: 11/07/2022 Michelle Smipson APRN.CNP The medication(s) fall under the following categories: Category 3: Medication(s) does not qualify for pharmacist renewal due to needing a physician consult and review and medication excluded from collaborative practice agreement. Renewal request sent to provider for review. Requested Prescriptions Pending Prescriptions Disp Refills predniSONE (DELTASONE) 10 mg tablet 42 tablet 0 Sig: Take by mouth with food. Take 30mg(3 tabs)/day x1 week, then 20mg (2 tabs)/day x1 week, then 10mg (1 tab)/day x1 week, then stop Number of refills approved in this encounter: 0 Number of refills forwarded to provider for review: 1 Number of refills denied in this encounter: 0 Shaniqua Parks RPh documented in this encounterPremier Health [facility]12-29-2022 Miscellaneous Notes* Telephone Encounter - Sal[place] Tabor - 09/04/2022 2:49 PM EST 1st-time treatment report. The patient is currently being seen for a non- oncology regimen. No navigator services are needed at this time. documented in this encounterPremier Health [facility] Valley [facility] Center12-07-2022 History of Present illness Narrative* Tamir Fitzpatrick APRN.BUILDING MAINTENANCE SUPERVISOR - 08/13/2022 7:47 PM EST Subjective HPI Nontoxic-appearing female presents urgent care chief complaint left toe pain. Patient states this morning she was walking when she stoped her first and second digit against the kitchen table. Presents today for evaluation. Denies any significant pain at rest. Increased pain with palpation or if shewalks. Has not used any OTC medications. Denies any numbness no tingling. No decreased sensation. Past medical history prescription medication use allergies reviewed. .Patient presents with: left toe pain: Left toe pain-fell this am PAST MEDICAL HISTORY Diagnosis Date Astigmatism, regular 12/22/2015 Chronic bilateral low back pain with sciatica 12/10/2015 Chronic kidney insufficiency, stage 3 (moderate) (HCC) 04/06/2018 Encounter for gynecological examination 05/03/2019 Seeing the [facility]. 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 RA (rheumatoid arthritis) (HCC) + RF, +CCP OVERLAP PsA (+NAIL disease, dactylitis, axial inflammatory sx) Sjogren's syndrome (HCC) Neg SSA SSB in January 2009 Thyroid cancer (HCC) 09/07/[address] Maldonado removed, radioactive iodine ablation. papillary Vitamin D deficiency PAST SURGICAL HISTORY Procedure Laterality Date BREAST AUGMENTATION W/PROSTHETIC IMPLANT 2000 bilateral implants BX BREAST PERC NEED W/GUID 10/29/11 U/S needle core left axillary LN COLONOSCOPY FLX DX W/COLLJ SPEC WHEN PFRMD 09/07/2010 Colonoscopy, repeat 10 yrs EGD TRANSORAL BIOPSY SINGLE/MULTIPLE 11/06/06 Hiatal hernia, gastritis, retained food ESOPHAGOGASTRODUODENOSCOPY TRANSORAL DIAGNOSTIC EGD ESOPHAGOGASTRODUODENOSCOPY TRANSORAL DIAGNOSTIC 03/15/2015 EGD FNA (FINE NEEDLE ASPIRATION) 10/15/06 U/S FNA right thyroid nodule FNA WITH IMAGING 09/22/11 U/S FNA left axillary mass KNEE ARTHROSCOPY Left 2009 LIG/TRNSXJ FLP TUBE ABDL/VAG APPR UNI/BI Tubal ligation NEUROPLASTY &/TRANSPOS MEDIAN NRV CARPAL TUNNE Left 05/30/16 Carpal tunnel decomp NEUROPLASTY &/TRANSPOS MEDIAN NRV CARPAL TUNNE Right 09/26/2016 Carpal tunnel decomp PAST SURGICAL HISTORY OF 2010 removal of implants & replace & pannilectomy SYNOVECTOMY EACH 1999 left wrist THYROIDECTOMY TOTAL/COMPLETE 11/10/06 TONSILLECTOMY & ADENOIDECTOMY <AGE 12 Tonsillectomy VAGINAL HYSTERECTOMY UTERUS 250 GM/< 2004 Hysterectomy, vaginal ALLERGIES Flovent [Fluticasone], Amicar [Aminocaproic Acid], Humira [Adalimumab], Tessalon [Benzonatate], Albuterol, and Methotrexate MEDICATIONS predniSONE (DELTASONE) 10 mg tablet Take by mouth with food. Take 30mg(3 tabs)/day x1 week, then 20mg (2 tabs)/day x1 week, then 10mg (1 tab)/day x1 week, then stop levothyroxine (SYNTHROID) 125 mcg tablet Take 1 tablet by mouth once daily. Take on empty stomach. For Thyroid tocilizumab 162 mg/0.9 mL Inject 1 pen (162mg) subcutaneously every 2 weeks. hydrOXYchloroQUINE (PLAQUENIL) 200 mg tablet Take 1.5 tablets by mouth once daily. ergocalciferol 50,000 unit capsule (VITAMIN D2, DRISDOL) TAKE 1 CAPSULE BY MOUTH TWO TIMES A WEEK. omeprazole (PRILOSEC) 20 mg capsule Take 1 capsule by mouth daily before breakfast, a half hour before meal. buPROPion XL (WELLBUTRIN XL) 150 mg 24 hr tablet Take 1 tablet by mouth once daily. clotrimazole-betamethasone (LOTRISONE) cream Apply to affected area twice daily. Cholecalciferol, Vitamin D3, 50 mcg (2,000 unit) cap Take 1 capsule by mouth twice daily. polyethylene glycol 3350 (MIRALAX) 17 gram/dose powder 17gm in 8oz daily until stools regular (for constipation) cyclobenzaprine (FLEXERIL) 10 mg tablet Take 1 tablet by mouth twice daily as needed. vitamin b complex tab Take 1 tablet by mouth once daily. FAMILY HISTORY Problem Relation Age of Onset Cancer Father None Mother Diabetes Brother from type I dx/d age 9 Breast Cancer Sister Thyroid Sister cancer Diabetes Grandchild Type I age 8 Social History Tobacco Use Smoking status: Never Smokeless tobacco: Never Vaping Use Vaping Use: Never used Substance Use Topics Alcohol use: No Comment: rare ; deo. wine Drug use: No BP 132/84 Pulse 72 Temp 37.3 C (99.2 F) (Tympanic) Resp 18 Wt 80.5 kg (177 lb 6.4 oz) SpO2 98% BMI 27.78 kg/m Review of Systems Constitutional: Negative for chills, fever and malaise/fatigue. HENT: Negative for congestion, ear discharge, ear pain, sinus pain and sore throat. Eyes: Negative for blurred vision, pain, discharge and redness. Respiratory: Negative for cough, hemoptysis, sputum production, shortness of breath, wheezing and stridor. Cardiovascular: Negative for chest pain. Gastrointestinal: Negative for abdominal pain, diarrhea, nausea and vomiting. Musculoskeletal: Positive for joint pain. Negative for back pain, falls, myalgias and neck pain. Skin: Negative for itching and rash. Neurological: Negative for dizziness and headaches. Objective Physical Exam Constitutional: General: She is not in acute distress. Appearance: She is not diaphoretic. HENT: Head: Normocephalic. Eyes: Conjunctiva/sclera: Conjunctivae normal. Pupils: Pupils are equal, round, and reactive to light. Cardiovascular: Rate and Rhythm: Normal rate and regular rhythm. Heart sounds: Normal heart sounds. Pulmonary: Effort: Pulmonary effort is normal. No tachypnea, accessory muscle usage or respiratory distress. Breath sounds: Normal breath sounds. No stridor. No wheezing, rhonchi or rales. Abdominal: Palpations: Abdomen is soft. Tenderness: There is no abdominal tenderness. Musculoskeletal: Cervical back: Normal range of motion. Feet: Comments: Ecchymosis noted to the first and second digit left foot. Pain with palpation to phalanges. Minimal pain with palpation to metatarsals. No pain with palpation to ankle. No breaks in skin. Neurovascular intact. Skin: General: Skin is warm and dry. Neurological: Mental Status: She is alert and oriented to person, place, and time. ASSESSMENT/PLAN: 1. Foot injury, left, initial encounter - ICD9: 959.7, ICD10: S99.922A - XR FOOT GENERAL 3V AP/LAT/OBL LEFT IMPRESSION: 1. Probable small bone spur or old corticated ossicle at the dorsal side of the tarsal-metatarsal joint region in the lateral projection. Clinical correlation suggested to exclude a small fracture chip in this location. 2. Bones otherwise intact and normally aligned. Area of possible avulsion fracture was noted in the area of tenderness on palpation on examination.However patient is having significant discomfort. Patient will be placed in a postop shoe provided with crutches. Follow-up with PCP or podiatry in the next 3 to 5 days reevaluation. Patient was educated on supportive therapies. Patient was instructed to immediately proceed to emergency room for any new, worsening, or symptoms lasting longer than anticipated. The patient's clinical presentation is otherwise unremarkable at this time. Based on exam and clinical finding, the patient is stable fordischarge. Plan of care was discussed with patient. Patient verbalizes understanding and agrees to plan of care. This note was generated using Appinions software. It may contain errors in wording, punctuation, or spelling. Tamir Fitzpatrick APRN.PENNY documented in this encounterPremier Health [facility]12-03-2022 Miscellaneous Notes* Telephone Encounter - Mariam Ordaz RN - 08/09/2022 4:46 PM EST Reason for call: Patient was seen under care of Rheumatology yesterday for Reclast infusion. Patient unable to talk to triager other than a few words - gave verbal permission to triager to speak withspouse. Spouse states that patient is having trouble breathing and is in extreme pain along with nausea vomiting and dizziness. Triager can hear patient continuously vomiting over the phone. Outcome: Go to ED now; spouse will drive patient not to closest ED which is [facility]. Reason for Disposition [1] MODERATE difficulty breathing (e.g., speaks in phrases, SOB even at rest, pulse 100-120) AND [2] NEW-onset or WORSE than normal Protocols used: Breathing [id number] documented in this encounterPremier Health [facility] Center12-02-2022 History of Present illness Narrative* Benita Preston RN - 08/08/2022 1:43 PM EST Patient offered bathroom assistance throughout treatment? Yes documented in this encounterPremier Health [facility] Center11-28-2022 Miscellaneous Notes* Telephone Encounter - Elyssa Elkins MA - 08/04/2022 10:17 AM EST Patient is notified of message below and verbalized understanding of instructions. Elyssa Elkins MA * Telephone Encounter - Michelle Simpson APRN.CNP - 08/04/2022 10:07 AM EST Please advise the patient to avoid NSAIDS (motrin, ibuprofen, aleve, etc.) while taking the steroids. The following approved medication requests have been transmitted electronically. Requested Prescriptions Signed Prescriptions Disp Refills predniSONE (DELTASONE) 10 mg tablet 42 tablet 0 Sig: Take by mouth with food. Take 30mg(3 tabs)/day x1 week, then 20mg (2 tabs)/day x1 week, then 10mg (1 tab)/day x1 week, then stop Authorizing Provider: MICHELLE SIMPSON APRN.PENNY * Telephone Encounter - Elyssa Elkins MA - 08/04/2022 9:47 AM EST Spoke with patient. She is having a flare up. She recently completed a Prednisone course and the pain is back again. Patient is having pain in both joints and muscle. Pain scale on on average is 6/10. She feels stiff and sore throughout the entire body. Thanks, Elyssa Elkins MA * Telephone Encounter - Elyssa Elkins MA - 08/04/2022 9:46 AM EST Patient has been identified by name and date of : Yes RX INSTRUCTIONS: Patient aware RX will be sent to pharmacy. No need to notify patient. LAST APPOINTMENT: 06/11/2022 UPCOMING APPOINTMENT: 11/07/2022 LABS: Hemoglobin (g/dL) Date Value 02/06/2022 12.3 10/17/2021 12.7 Hematocrit (%) Date Value 02/06/2022 36.9 10/17/2021 38.5 WBC (k/uL) Date Value 02/06/2022 7.00 10/17/2021 6.15 Platelet Count (k/uL) Date Value 02/06/2022 285 10/17/2021 322 AST Date Value Ref Range Status 02/06/2022 24 13 - 35 U/L Final ALT Date Value Ref Range Status 02/06/2022 16 7 - 38 U/L Final Creatinine Date Value Ref Range Status 06/11/2022 0.91 0.58 - 0.96 mg/dL Final No results found for: URICACID Elyssa Elkins MA * Telephone Encounter - Ina Barksdale - 08/04/2022 8:49 AM EST Patient has been identified by name and date of : Yes Requested Prescriptions Pending Prescriptions Disp Refills predniSONE (DELTASONE) 10 mg tablet 42 tablet 0 Sig: Take 30mg(3 tabs)/day x1 week, then 20mg (2 tabs)/day x1 week, then 10mg (1 tab)/day x1 week, then stop RX INSTRUCTIONS: Patient aware RX will be sent to pharmacy. No need to notify patient. Ina Apolonia documented in this encounterPremier Health [facility] Center11-15-2022 Miscellaneous Notes* Telephone Encounter - Elodia Elder RPh - 07/22/2022 10:45 AM EST Pharmacist Refill Authorization Review Name: Mariam Minaya Date: 07/22/2022 Time: 10:47 AM Refill authorization request(s) received via patient request and reviewed under effective consult agreement. Upon review, did confirm that an active patient- provider relationship exists and that the prescriber is a participating physician under the consult agreement. Last office visit in this department: 04/09/2021 Laura Robertson MD Last distance health visit in this department: 11/01/2021 Salinas Samuel APRN.BUILDING MAINTENANCE SUPERVISOR Next appointment in this department: Visit date not found The medication(s) fall under the following categories: Category 1: No barriers to continued therapy exists and patient is up to date with provider visits.Prescription(s) issued as below. Requested Prescriptions Signed Prescriptions Disp Refills levothyroxine (SYNTHROID) 125 mcg tablet 90 tablet 2 Sig: Take 1 tablet by mouth once daily. Take on empty stomach. For Thyroid Authorizing Provider: SALINAS SAMUEL Ordering User: ELODIA ELDER Number of refills approved in this encounter: 1 Number of refills forwarded to provider for review: 0 Number of refills denied in this encounter: 0 Elodia Elder RPh documented in this encounterPremier Health [facility] Center11-10-2022 History of Present illness Narrative* Azra Mcknight - 07/17/2022 12:53 PM EST [facility] Refill Assessment Medication(s): Actemra Patient's current medication list and adherence status to current therapy were reviewed by Specialty Pharmacy clinical pharmacist to identify any new drug interactions or non-compliance to therapy. Therapy continues to be appropriate for disease, patient response, and medical condition. Verification of therapeutic benefit and effectiveness with current therapy was completed. Adverse events, barriers in adherence, and side effects were assessed and addressed if applicable. Will proceed with refill with no changes in therapy - patient progressing towards achieving therapeutic goals based on medication- specific laboratory parameters, disease state markers and outcomes. Rand Sewer Assessment Med/dose confirmed: Yes Supplies needed: No supplies needed Missed doses: No Estimated days supply on hand: 0 Next cycle/dose due: 07/30/22 Copay amount: 5 Copay form of payment: Credit card on file Payment confirmed: Yes Delivery method: FedEx Delivery address: [address] [place] [address] Delivery date: 07/23/22 Questions or concerns for the pharmacist?: No [facility] Assessment - Inflammatory Conditions: Assessment to use: Refill Vaccination Assessment: Date of influenza vaccination reminder: 06/18/2022 Date of most recent vaccination assessment: 06/18/2022 Treatment Plan Information: Treatment Plan Information: Actemra Actpen 162mg/0.9mL - Inject 1 pen (162mg) subcutaneously every 2 weeks. M05.9 - seropositive rheumatoid arthritis Est. Tx Plan Start Date: 06/26/2022 Estimated Treatment Duration: Until loss of efficacy and/or no longer tolerated. Azra Mcknight CPhT [facility] documented in this encounterPremier Health [facility] Valley [facility] Center11-04-2022 Miscellaneous Notes* Telephone Encounter - Kenneth Alonzo MD - 07/11/2022 4:04 PM EDT Rx sent * Telephone Encounter - Jerilyn Monteiro - 07/11/2022 2:39 PM EDT Patient is calling to refill a Prednisone Pack, 10 mg. It was not listed on her drug list. She needs it sent to [facility] in [place], Patient can be reached at [phone]. Jerilyn Elkins PSS documented in this encounterPrem[facility]10-07-2022 History of Present illness Narrative* Azra Mcknight - 06/13/2022 5:43 PM EDT [facility] received prescription(s) for Actemra from Dr. Kenneth Alonzo's office. Benefits investigation was conducted, indicating that a prior authorization is required by patient's insurance plan with [facility]. Encounter will be updated once prior authorization has been submitted by [facility]. Azra Mcknight CPhT [facility] documented in this encounterPremier Health [facility]08-12-2022 History of Present illness Narrative* Azra Mcknight - 04/18/2022 1:29 PM EDT [facility] Refill Assessment Medication(s): Simponi Patient's current medication list and adherence status to current therapy were reviewed by Specialty Pharmacy clinical pharmacist to identify any new drug interactions or non-compliance to therapy. Therapy continues to be appropriate for disease, patient response, and medical condition. Verification of therapeutic benefit and effectiveness with current therapy was completed. Adverse events, barriers in adherence, and side effects were assessed and addressed if applicable. Will proceed with refill with no changes in therapy - patient progressing towards achieving therapeutic goals based on medication- specific laboratory parameters, disease state markers and outcomes. [facility] Visit Assessment - Inflammatory Conditions: Assessment to use: Refill Non-Clinical Assessment: Patient confirmed: Yes Med/dose confirmed: Yes Supplies needed: No Missed doses: No Estimated days supply on hand: 0 Next cycle/dose due: 04/28/2022 Copay amount: 5 Payment confirmed: Yes Address confirmed: Yes Delivery method: FedEx Delivery address: [address] [place] [address] Delivery date: 04/24/2022 Patient has questions: No Additional questions, comments, concerns: Patient has requested that signature requirement be waived for delivery. Azra Mcknight CPhT [facility] documented in this encounterPremier Health [facility]08-09-2022 History of Present illness Narrative* Azra Mcknight - 04/15/2022 9:44 AM EDT Benefits investigation was conducted, indicating that a prior authorization renewal for Simponi is required by patient's insurance plan with [facility]. Encounter will be updated once prior authorization has been submitted by [facility]. Azra Mcknight CPhT [facility] documented in this encounterPremier Health [facility] Center07-22-2022 Miscellaneous Notes* Telephone Encounter - Michelle Simpson APRN.CNP - 03/28/2022 9:02 AM EDT The following approved medication requests have been transmitted electronically. Signed Prescriptions Disp Refills predniSONE (DELTASONE) 10 mg tablet 42 tablet 0 Sig: Take with food. Take 3 tablets by mouth daily for 7 days, then 2 tablets daily for 7 days, then 1 tablet daily for 7 days, then stop. LUIAS: No Authorizing Provider: MICHELLE SIMPSON APRN.CNP * Telephone Encounter - Scarlett Terra Pss - 03/27/2022 4:59 PM EDT Patient has been identified by name and date of : Yes Pending Prescriptions Disp Refills PREDNISONE 10 MG TABLET 42 tablet 0 Sig: Take with food. Take 3 tablets by mouth daily for 7 days, then 2 tablets daily for 7 days, then 1 tablet daily for 7 days, then stop. LUISA: No RX INSTRUCTIONS: Patient aware RX will be sent to pharmacy. No need to notify patient. Scarlett Joneshl Pss documented in this encounterPremier Health [facility] Center07-18-2022 Miscellaneous Notes* Telephone Encounter - Michelle Simpson APRN.PENNY - 03/24/2022 10:07 AM EDT Short term script. No need for refill. Refused Prescriptions Disp Refills predniSONE (DELTASONE) 10 mg tablet [Pharmacy Med Name: PREDNISONE 10 MG TABLET] 42 tablet 0 Sig: TAKE WITH FOOD. TAKE 3 TABLETS BY MOUTH DAILY FOR 7 DAYS, THEN 2 TABLETS DAILY FOR 7 DAYS, THEN 1 TABLET DAILY FOR 7 DAYS, THEN STOP. LUISA: No Refused By: MICHELLE SIMPSON Reason for Refusal: A Refill not appropriate Michelle Simpson APRN.PENNY * Telephone Encounter - Jaymie Bernstein MA - 03/24/2022 8:55 AM EDT Patient's request for medication has been refused. See reason and notify patient. Pending Prescriptions Disp Refills PREDNISONE 10 MG TABLET 42 tablet 0 Sig: TAKE WITH FOOD. TAKE 3 TABLETS BY MOUTH DAILY FOR 7 DAYS, THEN 2 TABLETS DAILY FOR 7 DAYS, THEN 1 TABLET DAILY FOR 7 DAYS, THEN STOP. LUISA: Yes Spoke with patient. Patient did not request prednisone refill. Jaymie Bernstein MA documented in this encounterPremier Health [facility] Center06-30-2022 Miscellaneous Notes* Telephone Encounter - Elyssa Elkins MA - 03/06/2022 12:49 PM EDT Patient is notified of message below and verbalized understanding of instructions. Elyssa Elkins MA * Telephone Encounter - Michelle Simpson APRN.CNP - 03/06/2022 11:47 AM EDT Please advise the patient that script was sent. She should avoid NSAIDs while taking the steroids. The following approved medication requests have been transmitted electronically. Signed Prescriptions Disp Refills predniSONE (DELTASONE) 10 mg tablet 42 tablet 0 Sig: Take with food. Take 3 tablets by mouth daily for 7 days, then 2 tablets daily for 7 days, then 1 tablet daily for 7 days, then stop. LUISA: No Authorizing Provider: MICHELLE SIMPSON APRN.CNP * Telephone Encounter - Elyssa Elkins MA - 03/06/2022 11:09 AM EDT Spoke with patient. She is having a flare up. Joints are aching and swollen. Thanks, Elyssa Elkins MA * Telephone Encounter - Elyssa Elkins MA - 03/06/2022 11:08 AM EDT Patient has been identified by name and date of : Yes RX INSTRUCTIONS: Patient aware RX will be sent to pharmacy. No need to notify patient. LAST APPOINTMENT: 02/06/2022 UPCOMING APPOINTMENT: 06/11/2022 LABS: Hemoglobin (g/dL) Date Value 02/06/2022 12.3 10/17/2021 12.7 Hematocrit (%) Date Value 02/06/2022 36.9 10/17/2021 38.5 WBC (k/uL) Date Value 02/06/2022 7.00 10/17/2021 6.15 Platelet Count (k/uL) Date Value 02/06/2022 285 10/17/2021 322 AST Date Value Ref Range Status 02/06/2022 24 13 - 35 U/L Final ALT Date Value Ref Range Status 02/06/2022 16 7 - 38 U/L Final Creatinine Date Value Ref Range Status 02/06/2022 0.74 0.58 - 0.96 mg/dL Final No results found for: URICACID Elyssa Elkins MA * Telephone Encounter - Ina Barksdale - 03/06/2022 11:01 AM EDT Patient has been identified by name and date of : YES Pending Prescriptions Disp Refills PREDNISONE 10 MG TABLET 42 tablet 0 Sig: Take with food. Take 3 tablets by mouth daily for 7 days, then 2 tablets daily for 7 days, then 1 tablet daily for 7 days, then stop. LUISA: No Ina Barksdale documented in this encounterPremier Health [facility]06-03-2022 Miscellaneous Notes* Telephone Encounter - Elyssa Elkins MA - 02/07/2022 9:25 AM EDT Patient is notified of message below and verbalized understanding of instructions. Elyssa Elkins MA * Telephone Encounter - Michelle Simpson APRN.CNP - 02/07/2022 8:42 AM EDT Please advise her to increase the vitamin D dose by 2,000 units daily over the counter. Please ask her to repeat labs in 4 weeks to recheck this. Our office will contact her to schedule reclast pending approval. Telephone on 02/07/22 VITAMIN D 25 HYDROXY Thanks, Michelle Simpson APRN.CNP * Telephone Encounter - Elyssa Elkins MA - 02/07/2022 8:21 AM EDT Patient is notified of message below and verbalized understanding of instructions. Patient is not taking the high dose Vitamin D 50,000 IU. She is taking Vitamin D3 2,000 IU once daily. Elyssa Elkins MA * Telephone Encounter - Michelle Simpson APRN.CNP - 02/07/2022 7:10 AM EDT Please call and advise the patient that her vitamin D level is low. Please ask if she is taking theprescription vitamin D (50,0000 units twice per week). The remaining lab results are within acceptable limits. Thanks, Michelle Simpson APRN.PENNY documented in this encounterPremier Health [facility]06-02-2022 History of Present illness Narrative* Michelle Simpson APRN.CNP - 02/06/2022 1:30 PM EDT Chief complaint: RA HPI: To review, Mariam Minaya is a 61 year old female - Several years ago, diagnosed with RA by Dr. Pino Noble. Initially treated with HCQ 200mg bid and MTX 17.5mg PO weekly/FA (SSZ stopped for low WBC). MTX eventually stopped for high LFTs (and also had blood in urine while on MTX) - Humira with a significant injection site reaction - Later on HCQ 200mg/day and enbrel for several years. 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 - Takes prednisone 10mg/day prn flares, has been using 3 days/week for the last 3 weeks. - Flexeril causes her to feel antsy and RLS. - No rash, photosensitivity, or mouth sores. - Last plaquenil eye exam normal in Aug, has another scheduled eye exam scheduled for later this month - Bloody noses and clear nasal discharge x9 years. No hemoptysis or ear pressure/fluid issues. PAST MEDICAL HISTORY Diagnosis Date Astigmatism, regular 12/22/2015 Chronic bilateral low back pain with sciatica 12/10/2015 Chronic kidney insufficiency, stage 3 (moderate) (HCC) 04/06/2018 Encounter for gynecological examination 05/03/2019 [facility]. 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 RA (rheumatoid arthritis) (HCC) + RF, +CCP OVERLAP PsA (+NAIL disease, dactylitis, axial inflammatory sx) Sjogren's syndrome (HCC) Neg SSA SSB in January 2009 Thyroid cancer (HCC) 09/07/[address] Maldonado removed, radioactive iodine ablation. papillary Vitamin D deficiency PAST SURGICAL HISTORY Procedure Laterality Date BREAST AUGMENTATION W/PROSTHETIC IMPLANT 2000 bilateral implants BX BREAST PERC NEED W/GUID 10/29/11 U/S needle core left axillary LN COLONOSCOPY FLX DX W/COLLJ SPEC WHEN PFRMD 09/07/2010 Colonoscopy, repeat 10 yrs EGD TRANSORAL BIOPSY SINGLE/MULTIPLE 11/06/06 Hiatal hernia, gastritis, retained food ESOPHAGOGASTRODUODENOSCOPY TRANSORAL DIAGNOSTIC EGD ESOPHAGOGASTRODUODENOSCOPY TRANSORAL DIAGNOSTIC 03/15/2015 EGD FNA (FINE NEEDLE ASPIRATION) 10/15/06 U/S FNA right thyroid nodule FNA WITH IMAGING 09/22/11 U/S FNA left axillary mass KNEE ARTHROSCOPY Left 2009 LIG/TRNSXJ FLP TUBE ABDL/VAG APPR UNI/BI Tubal ligation NEUROPLASTY &/TRANSPOS MEDIAN NRV CARPAL TUNNE Left 05/30/16 Carpal tunnel decomp NEUROPLASTY &/TRANSPOS MEDIAN NRV CARPAL TUNNE Right 09/26/2016 Carpal tunnel decomp PAST SURGICAL HISTORY OF 2010 removal of implants & replace & pannilectomy SYNOVECTOMY EACH 1999 left wrist THYROIDECTOMY TOTAL/COMPLETE 3/6/07 TONSILLECTOMY & ADENOIDECTOMY <AGE 12 Tonsillectomy VAGINAL HYSTERECTOMY UTERUS 250 GM/< 2004 Hysterectomy, vaginal ALLERGIES Allergen Reactions Flovent [Fluticason* Rash Amicar [Aminocaproi* Rash Humira [Adalimumab] Hives welt at injection site Tessalon [Benzonata* Other: See Comments hypersensitive Albuterol Other: See Comments severe leg cramps Methotrexate Contraindication-Medical Surgical elevated liver enz INTERVAL HISTORY She is here for follow up. She stopped enbrel and started simponi after the ADEOLA. She took her second dose last week. She tolerates the simponi well. She reports 5% improvement of her joint symptoms. She was prescribed a steroid course in 12/2021 and reports 70% of her joint symptoms. She ran out of HCQ a month ago. She is taking vitamin D, but is not taking calicum. No falls or fractures since AEDOLA. No invasive dental work in the last three months. Last dental exam was in 01/2022 and states she will need to fillings done. Otherwise everything was fine per patient. No jaw or thigh pain. Pain is worst in the morning. She takes tylenol for pain. Sites of pain: feet, knees, shoulders, wrists, ankles, shoulders, pain rated 5/10 Joint swelling: hands, wrists, ankles EMS: yes, lasting until afternoon No recent infections Tolerating meds. REVIEW OF SYSTEMS GENERAL: No fevers HEENT: + intermittent headaches RESPIRATORY: no cough or wheezing , + shortness of breath with exertiojn CARDIOVASCULAR: Negative for chest pain or palpitations GI: No nausea, vomiting, or diarrhea : No history of dysuria SKIN: no rashes No gross hematuria or blood in stool No mouth sores Current Outpatient Medications Medication Sig golimumab (SIMPONI) 50 mg/0.5 mL Inject 50mg (1 pen) subcutaneously once every month. ergocalciferol 50,000 unit capsule (VITAMIN D2, DRISDOL) TAKE 1 CAPSULE BY MOUTH TWO TIMES A WEEK. omeprazole (PRILOSEC) 20 mg capsule Take 1 capsule by mouth daily before breakfast, a half hour before meal. levothyroxine (SYNTHROID) 125 mcg tablet Take 1 tablet by mouth once daily. Take on empty stomach. For Thyroid buPROPion XL (WELLBUTRIN XL) 150 mg 24 hr tablet Take 1 tablet by mouth once daily. clotrimazole-betamethasone (LOTRISONE) cream Apply to affected area twice daily. hydrOXYchloroQUINE (PLAQUENIL) 200 mg tablet Take 1.5 tablets by mouth once daily. Cholecalciferol, Vitamin D3, 50 mcg (2,000 unit) cap Take 1 capsule by mouth twice daily. polyethylene glycol 3350 (MIRALAX) 17 gram/dose powder 17gm in 8oz daily until stools regular (for constipation) cyclobenzaprine (FLEXERIL) 10 mg tablet Take 1 tablet by mouth twice daily as needed. vitamin b complex (B COMPLEX 1) tab Take 1 tablet by mouth once daily. No current facility-administered medications for this visit. FAMILY HISTORY Problem Relation Age of Onset Cancer Father None Mother Diabetes Brother from type I dx/d age 9 Breast Cancer Sister Thyroid Sister cancer Diabetes Grandchild Type I age 8 SOCIAL HISTORY: Lives in [place] with . Tobacco use: None Alcohol use: None Drug use: None PHYSICAL EXAMINATION: BP 128/83 Pulse 82 Temp 36.6 C (97.8 F) (Temporal) Ht 170.2 cm (5' 7) Wt 80.3 kg (177 lb) BMI 27.72 kg/m General appearance: Well appearing, alert, in no acute distress, well-hydrated, well nourished. Skin: Skin color, texture, turgor normal, no suspicious rashes or lesions Eyes: Anicteric sclera. Neck: Supple, no adenopathy Lungs: Lungs clear to auscultation. No wheezing, rhonchi, rales. Heart: RRR without murmur Abdomen: Normal abdominal exam, Abdomen soft, non-tender. Bowel sounds normal. No masses, organomegaly Neuro: Gait normal. Sensation grossly intact. + b/l lower extremity pitting edema Joints: Tender joints: b/l elbows, b/l wrists, b/l mcp's, b/l pip's, b/l dip's, b/l ankles Swollen joints: b/l mpc's, b/l pip's, b/l wrists, b/l knees, She is not able to make a complete fist with either hand. +tenderness to cervical spine No tenderness to SI joints Widespread Pain Index: 13 (0-19) Symptoms Severity Scale: 9 (0-12) WPI>7 and SS Scale>5 OR WPI 3-6 and SS Scale >9 consistent with fibromyalgia Labs reviewed and discussed with the patient: Component Latest Ref Rng & Units 10/17/2021 WBC 3.70 - 11.00 k/uL 6.15 RBC 3.90 - 5.20 m/uL 4.47 Hemoglobin 11.5 - 15.5 g/dL 12.7 Hematocrit 36.0 - 46.0 % 38.5 MCV 80.0 - 100.0 fL 86.1 MCH 26.0 - 34.0 pG 28.4 MCHC 30.5 - 36.0 g/dL 33.0 RDW-CV 11.5 - 15.0 % 12.8 Platelet Count 150 - 400 k/uL 322 MPV 9.0 - 12.7 fL 9.7 Neut% % 55.5 Abs Neut (ANC) 1.45 - 7.50 k/uL 3.40 Lymph% % 29.8 Abs Lymph 1.00 - 4.00 k/uL 1.83 [place]% % 10.1 Abs [place] <0.87 k/uL 0.62 Eosin% % 3.6 Abs Eosin <0.46 k/uL 0.22 Baso% % 1.0 Abs Baso <0.11 k/uL 0.06 Nucleated Reds 0 /100 WBC 0.0 Absolute nRBC <0.01 k/uL <0.01 Diff Type Auto Diff Hep B Core Ab, Total Negative Negative Hep C Antibody IA Negative Negative Hep B Surface Ag Negative Negative Hep B Surface Ab, Qual Negative Negative Vitamin D 25 Hydroxy 31.0 - 80.0 ng/mL 25.3 (L) Component Latest Ref Rng & Units 09/16/2021 Protein, Total 6.3 - 8.0 g/dL 6.8 Albumin 3.9 - 4.9 g/dL 4.1 Calcium 8.5 - 10.2 mg/dL 9.2 Bilirubin, Total 0.2 - 1.3 mg/dL 0.2 Alkaline Phosphatase 34 - 123 U/L 78 AST 13 - 35 U/L 16 Glucose 74 - 99 mg/dL 92 BUN 7 - 21 mg/dL 15 Creatinine 0.58 - 0.96 mg/dL 0.93 Sodium 136 - 144 mmol/L 140 Potassium 3.7 - 5.1 mmol/L 3.6 (L) Chloride 97 - 105 mmol/L 103 CO2 22 - 30 mmol/L 23 Anion Gap 9 - 18 mmol/L 14 ALT 7 - 38 U/L 11 eGFR- >60 eGFR-All Other Races . >60 Vitamin D 25 Hydroxy 31.0 - 80.0 ng/mL 19.2 (L) *November 24 unremarkable WBC, Hgb, Plt, Cr, ALT and AST *Oct 26 +RF 88 with unremarkable SSA, SSB, Jo1, PACKAGING CLERK, Sm, centromere, Scl *Sep 25 +CCP>250 and +MARCO [place]IO with unremarkable wbc, hgb, plt, cr, alt, ast, hep b/c and quantiferongold *2007 positive RF 35, CCP>100 STUDIES: *May xray L tib/fibula- Mild soft tissue swelling with no radiographic evidence of acute osseous injury. *February CXR- no acute changes IMPRESSION and PLAN: 1. Seropositive RA: Wrist and MCP pain/swelling in the setting of RF and CCP positivity. Has been on numerous medications: HCQ, MTX (high LFTs, blood in urine), humira (injection site reaction), enbrel and orencia (ineffective). Currently with active joint pain and swelling. With some improvement on simponi. -advised that she resume HCQ 300mg/day. Potential side effects were previously explained, includingretinal toxicity leading to blindness. Advised that routine ophthalmology follow-up will be required to monitor for potential toxicity at least annually. Last HCQ eye exam was normal in 07/2021. -continue simponi. I advised that it can take up to 3 months to notice full benefit of simponi. -will prescribe steroid course for her current symptoms. She was advised to avoid NSAIDS while taking the steroid. -at a prior visit the patient demanded script for narcotic pain medication. I advised that we typically do not prescribe narcotics for skilled nursing use in our department. I explained that I would discuss this with Dr. Alonzo, but in the meantime she would need to have a urine toxicology and sign a narcotic agreement if were to continue prescribing tramadol. The patient continually requested pain medication, but continued to refuse the tox screen. The patient appeared to very angry. Consult was placed to pain management. -check labs now 2. Osteopenia: Long-term steroid use and RA are risk factors. 09/2021 DEXA- lowest T-score -2.0. -advised starting reclast. R/b/a of med discussed and information on the medication was previously sent via my chart. -will schedule reclast pending PA and lab results -check labs now -continue vit d -routine dental visits advised -fall precautions -next DEXA due 09/2023. 3. Fibromyalgia: Meets criteria for this as above. - Didn't discuss in detail today. Will discuss in the future if needed. 4. General health maintenance: - Advised to continue follow-up with PCP for routine health maintenance and malignancy screening -she has not received the covid vaccine and is not planning to Follow-up in 3 months or sooner if needed. Patient was instructed to call if any questions or concerns. Thank you for allowing me to participate in the care of your patient. I spent a total of 25 minutes on the date of the service which included preparing to see the patient, [id number] patient care, completing clinical documentation, performing a medically appropriate examination, ordering medications, tests, or procedures and communicating results to the patient/fami ly/caregiver. Michelle Simpson APRN.CNP documented in this encounterPremier Health [facility]06-02-2022 Instructions* Patient Instructions* Michelle Simpson APRN.CNP - 02/06/2022 1:30 PM EDT Labs are due around 03/17/2022 documented in this encounterPremier Health [facility] Center05-19-2022 History of Present illness Narrative* Tatiana Veronica - 01/23/2022 9:56 AM EDT [facility] Assessment Medication(s): Simponi Therapy continues to be appropriate for disease, patient response, and medical condition. Verification of therapeutic benefit and effectiveness with current therapy. Adverse events, barriers in adherence, and side effects assessed and addressed. Will proceed with refill with no changes. [facility] Visit Assessment - Inflammatory Conditions: Assessment to use: Refill Non-Clinical Assessment: Patient confirmed: Yes Med/dose confirmed: Yes Supplies needed: No Missed doses: No Estimated days supply on hand: 0 Copay amount: 5 Payment confirmed: Yes Address confirmed: Yes Delivery method: FedEx Delivery address: [address] [place], [place] [address] Delivery date: 01/28/2022 Patient has questions: No Additional questions, comments, concerns: Ok to use cc on file. Patient was not sure of the exact due date. Vaccination Assessment: Date of influenza vaccination reminder: 12/30/2021 Date of most recent vaccination assessment: 12/30/2021 Tatiana Veronica [facility] [phone] documented in this encounterPremier Health [facility] Center04-26-2022 History of Present illness Narrative* RT Elizabeth(R) - 12/31/2021 3:20 PM EDT Radiology Service Progress Note PATIENT NAME: Mariam Minaya DATE OF SERVICE: December 31, 2021 TIME: 3:47 PM PATIENT IDENTITY VERIFICATION COMPLETED USING TWO (2) IDENTIFIERS: Name and Date of confirmedby patient verbally. FALL SCREENING: Has the patient had 2 falls in the last year or 1 fall with injury or currently using an Ambulatory Assistive Device (Walker, Cane, Wheelchair, Crutches, etc.)? No PATIENT GENDER DATA: Female. status: : No status: NO. PATIENT RELEVANT IMPLANT DATA REVIEWED: Not Applicable RADIOLOGY DEPARTMENT: CT; Exam(s) Completed: Chest PERIPHERAL IV DATA: Not applicable SIGNED BY: RT José Miguel(R) December 31, 2021 3:47 PM documented in this encounterPremier Health [facility]04-20-2022 Miscellaneous Notes* Telephone Encounter - Michelle Simpson APRN.CNP - 12/25/2021 3:18 PM EDT I called and spoke with the patient. She now reports 75% improvement of her joints symptoms with prednisone 50 mg x 5 days, ordered by another provider. She states IM steroids are not as effective asthe oral steroids. Will send script for a prednisone course. She was advised to avoid NSAIDS while taking the steroids. I asked that she contact me if her symptoms persist. I also advised that she schedule with pain management. She verbalized understanding. The following approved medication requests have been transmitted electronically. Signed Prescriptions Disp Refills predniSONE (DELTASONE) 10 mg tablet 50 tablet 0 Sig: Take by mouth with food. Take 4 tabs daily x 5 days, then 3 tabs daily x 5 days, then 2 tabs daily x 5 days, then 1 tab daily x 5 days, then stop. Authorizing Provider: MICHELLE SIMPSON APRN.CNP * Telephone Encounter - Elyssa Elkins MA - 12/25/2021 3:03 PM EDT Patient is notified of message below and verbalized understanding. Flexeril does not help much withpain, it only relaxes her a little and makes her drowsy. She cannot take it at night, keeps her awake. Patient said she has Flexeril at home, no need to send a new prescription. Elyssa Elkins MA * Telephone Encounter - Michelle Simpson APRN.CNP - 12/25/2021 2:49 PM EDT Please ask the patient if flexeril helped her pain in the past. If so, I will send a script to her pharmacy. She should be aware that it can make her drowsy, so she should use caution with activities, such as driving until she sees how it affects her. Thanks, Michelle Simpson APRN.CNP * Telephone Encounter - Elyssa Elkins MA - 12/25/2021 2:41 PM EDT Patient is notified of message below and verbalized understanding of instructions. Patient did complete the Prednisone 20 mg script. She noticed 25% of improvement. Patient still continues to have pain in her feet, shoulder, arms and neck. Elyssa Elkins MA * Telephone Encounter - Michelle Simpson APRN.CNP - 12/25/2021 2:35 PM EDT Please ask the patient if she completed the prednisone that was prescribed by another provider. If so, what percentage of improvement did she notice with this. Please also advise that I sent the script for Simponi on 12/19/2021. It can take up to two weeks forthe prior authorization process. Thanks, Michelle Simpson APRN.PENNY * Telephone Encounter - Elyssa Elkins MA - 12/25/2021 2:13 PM EDT Spoke with patient. Prior authorization for Simponi injections is still in process to be done by [facility] specialty pharmacy. Patient was told by CLERICAL ADMINISTRATOR she could receive a script for medication to help with the pain in the meantime while waiting to start the Simponi injections. Please send script to [facility] pharmacy on file. Thanks, Elyssa Elkins MA * Telephone Encounter - Jennifer Fitzgerald Pss - 12/25/2021 1:51 PM EDT Patient would like to speak to someone in Michelle Simpson office regarding new medication that she has been taking. Patient states was supposed to let someone know how she is doing after a few weeks. documented in this encounterPrem[facility] History of Present illness Narrative* Demetrius Nichols (Ins[employer]) - 12/20/2021 10:01 AM EDT [facility] received prescription(s) for Simponi from Dr. Michelle Simpson's office. Benefits investigation was conducted, indicating that a prior authorization is required by pt's plan with [facility]. Note will be updated once prior authorization has been submitted. Demetrius Nichols CPhT (Dee) [facility] documented in this encounterPrem[facility]04-14-2022 Miscellaneous Notes* Telephone Encounter - Michelle Simpson APRN.CNP - 12/19/2021 3:45 PM EDT I called and spoke with the patient. All questions were answered. She reports taking prednisone 50 mg x 5 days in 11/2021 for joint pain. She did not notice any improvement of her pain. She reports generalized pain today. She was recently prescribed prednisone 20 mg daily x 7 days, but has not picked up the script yet. I requested that she contact me with an update after completing the steroid course. If she notices significant improvement of her pain, will prescribe a longer course. If she does not notice improvement, will discuss treatment for fibromyalgia. Patient verbalized understanding. Michelle Simpson APRN.CNP * Telephone Encounter - Michelle Simpson APRN.CNP - 12/19/2021 3:22 PM EDT I called and LMTCB. Michelle Simpson APRN.CNP * Telephone Encounter - Elyssa Elkins MA - 12/19/2021 3:16 PM EDT Patient is notified of message below and verbalized understanding of instructions. Patient is asking why CLERICAL ADMINISTRATOR did not have her start Simponi already, why do it now? It's been a months seen the [facility] and she is suffering in pain. Please explain. Thanks, Elyssa Elkins MA * Telephone Encounter - Michelle Simpson APRN.CNP - 12/19/2021 3:04 PM EDT Please call and advise the patient that I reviewed her progress note from pulmonary. She can start the Simponi now. I sent the script to our specialty pharmacy, who will handle the prior authorization process. Please advise her to contact our office if she does not hear anything within the next 2 weeks. The following approved medication requests have been transmitted electronically. Signed Prescriptions Disp Refills golimumab (SIMPONI) 50 mg/0.5 mL 0.5 mL 5 Sig: Inject 0.5 mL subcutaneously once every month. Please dispense Smartject- Auto Injector Authorizing Provider: MICHELLE SIMPSON APRN.PENNY documented in this encounterPrem[facility]04-13-2022 Instructions* Patient Instructions* Dimitris Banda MD - 12/18/2021 2:46 PM EDT - schedule CT scan of the chest - I will contact Dr. Alonzo about your RA - I will contact you with the CT scan results documented in this encounterPrem[facility]04-13-2022 History of Present illness Narrative* Karen Bush RRT - 12/18/2021 1:08 PM EDT PULM FUNCTION SMARTBLOCK: Provider: Constance Barahona MD Spirometry: 1 DLCO: 1 System: [id number] documented in [place] encounterLuis [place]ille [id number] History of Present illness Narrative* Dimitris Banda MD - 12/18/2021 1:06 PM EDT Images from the original note were not included. [facility] [place] Mariam Minaya is a 61 year old year old female here for evaluation by the [facility]. Consultation requested by Dr. Kenneth Alonzo for an opinion regarding ILD and my final recommendations will be communicated back to the requesting physician by way of shared Medical record or letter via US mail. Referring diagnosis: RA-ILD: Rheumatoid arthritis HISTORY OF PRESENT ILLNESS: This is a 61 year old year-old female coming to our Interstitial Lung Disease center with the following history of present illness: PMHx of seropositive RA, on plaquenil and recent plan to start Simponi, but she hasn't started yet. GACRIA started a few years ago, mild dry cough, both getting slightly worse. Hands are getting worse since stopping the Enbrel, knees, many joints are worse now since stopping Enbrel. Past ILD History: Date of symptom onset: a few years ago Date of Diagnosis: NA Diagnosis confirmed by: Other: NA Immediate relative with ILD: None Pulmonary hypertension: Uncertain Other comorbidities: Rheumatologic disease Past ILD Therapies: Current ILD medications: No medication Past ILD medications: No medication REVIEW OF SYSTEMS GENERAL: No weight loss, malaise or fevers HEENT: Negative for frequent or significant headaches, No changes in hearing or vision, no nose bleeds, no oral/nasal ulcers, SICCA symptoms. NECK: Negative for lumps, goiter, pain and significant neck swelling RESPIRATORY: Negative for hemoptysis, wheezing. MRC Dyspnea Scale: 2. Short of breath when hurryingor walking up a slight hill Cough: Yes, non-productive CARDIOVASCULAR: Negative for chest pain, leg swelling or palpitations, near syncope/syncope, PND, orthopnea, lower extremity edema. GI: No GERD symptoms, nausea, vomiting, or diarrhea MUSCULOSKELETAL: See HPI. SKIN: Negative for lesions, rash, itching, change skin texture, photosensitivity, alopecia. EXTREMITIES: No clubbing, no nail changes, no Raynaud's or digital ulcers NEURO: No history of headaches, syncope, paralysis, seizures or tremors PAST MEDICAL HISTORY Diagnosis Date Astigmatism, regular 12/22/2015 Chronic bilateral low back pain with sciatica 12/10/2015 Chronic kidney insufficiency, stage 3 (moderate) (HCC) 04/06/2018 Encounter for gynecological examination 05/03/2019 [facility]. 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 RA (rheumatoid arthritis) (HCC) + RF, +CCP OVERLAP PsA (+NAIL disease, dactylitis, axial inflammatory sx) Sjogren's syndrome (HCC) Neg SSA SSB in January 2009 Thyroid cancer (HCC) 09/07/[address] Maldonado removed, radioactive iodine ablation. papillary Vitamin D deficiency PAST SURGICAL HISTORY Procedure Laterality Date BREAST AUGMENTATION W/PROSTHETIC IMPLANT 2000 bilateral implants BX BREAST PERC NEED W/GUID 10/29/11 U/S needle core left axillary LN COLONOSCOPY FLX DX W/COLLJ SPEC WHEN PFRMD 09/07/2010 Colonoscopy, repeat 10 yrs EGD TRANSORAL BIOPSY SINGLE/MULTIPLE 11/06/06 Hiatal hernia, gastritis, retained food ESOPHAGOGASTRODUODENOSCOPY TRANSORAL DIAGNOSTIC EGD ESOPHAGOGASTRODUODENOSCOPY TRANSORAL DIAGNOSTIC 03/15/2015 EGD FNA (FINE NEEDLE ASPIRATION) 10/15/06 U/S FNA right thyroid nodule FNA WITH IMAGING 09/22/11 U/S FNA left axillary mass KNEE ARTHROSCOPY Left 2009 LIG/TRNSXJ FLP TUBE ABDL/VAG APPR UNI/BI Tubal ligation NEUROPLASTY &/TRANSPOS MEDIAN NRV CARPAL TUNNE Left 05/30/16 Carpal tunnel decomp NEUROPLASTY &/TRANSPOS MEDIAN NRV CARPAL TUNNE Right 09/26/2016 Carpal tunnel decomp PAST SURGICAL HISTORY OF 2010 removal of implants & replace & pannilectomy SYNOVECTOMY EACH 1999 left wrist THYROIDECTOMY TOTAL/COMPLETE 11/10/06 TONSILLECTOMY & ADENOIDECTOMY <AGE 12 Tonsillectomy VAGINAL HYSTERECTOMY UTERUS 250 GM/< 2004 Hysterectomy, vaginal Current Outpatient Medications Medication Sig ergocalciferol 50,000 unit capsule (VITAMIN D2, DRISDOL) TAKE 1 CAPSULE BY MOUTH TWO TIMES A WEEK. omeprazole (PRILOSEC) 20 mg capsule Take 1 capsule by mouth daily before breakfast, a half hour before meal. predniSONE (DELTASONE) 10 mg tablet Take with food. Take 3 tablets by mouth daily for 7 days, then 2 tablets daily for 7 days, then 1 tablet daily for 7 days, then stop. (Patient not taking: Reportedon 11/27/2021 ) levothyroxine (SYNTHROID) 125 mcg tablet Take 1 tablet by mouth once daily. Take on empty stomach. For Thyroid buPROPion XL (WELLBUTRIN XL) 150 mg 24 hr tablet Take 1 tablet by mouth once daily. clotrimazole-betamethasone (LOTRISONE) cream Apply to affected area twice daily. (Patient not taking: Reported on 11/27/2021 ) hydrOXYchloroQUINE (PLAQUENIL) 200 mg tablet Take 1.5 tablets by mouth once daily. Cholecalciferol, Vitamin D3, 50 mcg (2,000 unit) cap Take 1 capsule by mouth twice daily. polyethylene glycol 3350 (MIRALAX) 17 gram/dose powder 17gm in 8oz daily until stools regular (for constipation) cyclobenzaprine (FLEXERIL) 10 mg tablet Take 1 tablet by mouth twice daily as needed. vitamin b complex (B COMPLEX 1) tab Take 1 tablet by mouth once daily. No current facility-administered medications for this visit. ALLERGIES Allergen Reactions Flovent [Fluticason* Rash Amicar [Aminocaproi* Rash Humira [Adalimumab] Hives welt at injection site Tessalon [Benzonata* Other: See Comments hypersensitive Albuterol Other: See Comments severe leg cramps Methotrexate Contraindication-Medical Surgical elevated liver enz FAMILY HISTORY Problem Relation Age of Onset Cancer Father None Mother Diabetes Brother from type I dx/d age 9 Breast Cancer Sister Thyroid Sister cancer Diabetes Grandchild Type I age 8 Social History Tobacco Use Smoking status: Never Smoker Smokeless tobacco: Never Used Vaping Use Vaping Use: Never used Substance Use Topics Alcohol use: No Comment: rare ; deo. wine Drug use: No PHYSICAL EXAM: BP 121/80 (BP Site: Left Arm, BP Position: Sitting, BP Cuff Size: Large Adult) Pulse 83 Ht 164.2 cm (5' 4.65) Wt 74.4 kg (164 lb) SpO2 98% BMI 27.59 kg/m General appearance: Well appearing, alert, in no acute distress, well-hydrated, well nourished. Skin: Skin color, texture, turgor normal, no suspicious rashes or lesions Head: Normocephalic, no masses, lesions, tenderness or abnormalities Eyes: No jaundice, no redness. Oropharynx: Lips, mucosa, and tongue normal, teeth and gums normal, oropharynx normal Neck: No adenopathy, no tenderness Lungs: Lungs clear to auscultation. No wheezing, rhonchi, rales Heart: RRR without murmur, gallop, or rubs. No ectopy Abdomen: Abdomen soft, non-tender. Extremities: No deformities, edema, skin discoloration, clubbing or cyanosis. Musculoskeletal: No joint swelling, deformity, or tenderness Neuro: Gait normal, grossly non-focal. DATA REVIEWED (independently reviewed by myself) Laboratory Data Laboratory data reviewed in [facility] Everywhere. Pulmonary Function Data PFT available: Yes. PFT results normal. Six minute walk Six minute walk available: No Radiology Was new imaging performed?: Yes, CXR, independently reviewed by me, normal lungs. Echocardiogram Was an echo performed?: No Heart Catheterization Was a right heart catheterization performed?: No ASSESSMENT Patient Active Problems That Need Monitoring: Diagnosis SOB (shortness of breath) Overview Note: - No signs of ILD on PFT or CXR. Will get CT chest to be sure. - Sschedule CT scan of the chest - I will contact Dr. Alonzo about her RA - I will contact her with the CT scan results Dimitris Banda MD December 18, 2021 4:01 PM documented in this encounterPrem[facility]03-25-2022 Miscellaneous Notes* Telephone Encounter - Winsome Burr RN - 11/29/2021 4:22 PM EDT . documented in this encounterPremier [facility]02-10-2022 History of Present illness Narrative* Laina Dhillon RT(R) - 10/17/2021 3:45 PM EST Radiology Service Progress Note PATIENT NAME: Mariam Minaya DATE OF SERVICE: October 17, 2021 TIME: 3:59 PM PATIENT IDENTITY VERIFICATION COMPLETED USING TWO (2) IDENTIFIERS: Name and Date of confirmedby patient verbally. FALL SCREENING: Has the patient had 2 falls in the last year or 1 fall with injury or currently using an Ambulatory Assistive Device (Walker, Cane, Wheelchair, Crutches, etc.)? No PATIENT GENDER DATA: Female. status: : No status: NO. PATIENT RELEVANT IMPLANT DATA REVIEWED: Not Applicable RADIOLOGY DEPARTMENT: General X-ray: Exam(s) Completed: Chest X-Ray PERIPHERAL IV DATA: Not applicable SIGNED BY: RT Loretta(R) October 17, 2021 3:59 PM documented in this encounterPremier [facility]12-07-2020 History of Present illness Narrative* Rama HouseRt), [place] - 08/13/2020 12:20 PM EST Radiology Service Progress Note PATIENT NAME: Mariam Minaya DATE OF SERVICE: August 13, 2020 TIME: 12:37 PM PATIENT IDENTITY VERIFICATION COMPLETED USING TWO (2) IDENTIFIERS: Name and Date of confirmedby patient verbally. FALL SCREENING: Has the patient had 2 falls in the last year or 1 fall with injury or currently using an Ambulatory Assistive Device (Walker, Cane, Wheelchair, Crutches, etc.)? No PATIENT GENDER DATA: Female. status: : No status: NO. PATIENT RELEVANT IMPLANT DATA REVIEWED: Not Applicable RADIOLOGY DEPARTMENT: General X-ray: Exam(s) Completed: Upper Extremity X- Ray(s): Hand, bilateral : PERIPHERAL IV DATA: Not applicable SIGNED BY: RT [place] August 13, 2020 12:37 PM documented in this encounterPremier [facility]11-08-2016 History of Past illness Narrative* Problem Noted Date Resolved Date Right carpal tunnel syndrome 07/15/2016 Postoperative hypothyroidism 05/28/201611/2018 Left carpal tunnel syndrome 05/22/201603/09 Chronic conjunctivitis of both eyes 12/22/2015 05/28/2016 Esophageal reflux 03/15/2015 03/15/2015 Kidney stone 03/22/2012 05/28/2016 Adenopathy 10/27/2011 05/28/2016 Left axillary pain 09/16/2011 05/28/2016 Pneumonia, organism unspecified(486) 11/24/2007 12/27/2014 GASTRITIS ANTRAL( W/O Hemorrhage) 11/06/2006 12/27/2014 Acute gastritis without mention of hemorrhage 12/27/2014 Myalgia and myositis, unspecified 07/04/2005 05/28/2016 Dysphagia 05/28/2016 documented as of this encounter (statuses as of 12/03/2021) [facility] of Past illness Narrative* Problem Noted Date Resolved Date Right carpal tunnel syndrome 07/15/2016 Postoperative hypothyroidism 05/28/201611/2018 Left carpal tunnel syndrome 05/22/201603/09 Chronic conjunctivitis of both eyes 12/22/2015 05/28/2016 Esophageal reflux 03/15/2015 03/15/2015 Kidney stone 03/22/2012 05/28/2016 Adenopathy 10/27/2011 05/28/2016 Left axillary pain 09/16/2011 05/28/2016 Pneumonia, organism unspecified(486) 11/24/2007 12/27/2014 GASTRITIS ANTRAL( W/O Hemorrhage) 11/06/2006 12/27/2014 Acute gastritis without mention of hemorrhage 12/27/2014 Myalgia and myositis, unspecified 07/04/2005 05/28/2016 Dysphagia 05/28/2016 documented as of this encounter (statuses as of 12/18/2021) [facility] of Past illness Narrative* Problem Noted Date Resolved Date Right carpal tunnel syndrome 07/15/2016 Postoperative hypothyroidism 05/28/201611/2018 Left carpal tunnel syndrome 05/22/201603/09 Chronic conjunctivitis of both eyes 12/22/2015 05/28/2016 Esophageal reflux 03/15/2015 03/15/2015 Kidney stone 03/22/2012 05/28/2016 Adenopathy 10/27/2011 05/28/2016 Left axillary pain 09/16/2011 05/28/2016 Pneumonia, organism unspecified(486) 11/24/2007 12/27/2014 GASTRITIS ANTRAL( W/O Hemorrhage) 11/06/2006 12/27/2014 Acute gastritis without mention of hemorrhage 12/27/2014 Myalgia and myositis, unspecified 07/04/2005 05/28/2016 Dysphagia 05/28/2016 documented as of this encounter (statuses as of 12/18/2021) [facility] of [facility] illness Narrative* Problem Noted Date Resolved Date Right carpal tunnel syndrome 07/15/2016 Postoperative hypothyroidism 05/28/201611/2018 Left carpal tunnel syndrome 05/22/201603/09 Chronic conjunctivitis of both eyes 12/22/2015 05/28/2016 Esophageal reflux 03/15/2015 03/15/2015 Kidney stone 03/22/2012 05/28/2016 Adenopathy 10/27/2011 05/28/2016 Left axillary pain 09/16/2011 05/28/2016 Pneumonia, organism unspecified(486) 11/24/2007 12/27/2014 GASTRITIS ANTRAL( W/O Hemorrhage) 11/06/2006 12/27/2014 Acute gastritis without mention of hemorrhage 12/27/2014 Myalgia and myositis, unspecified 07/04/2005 05/28/2016 Dysphagia 05/28/2016 documented as of this encounter (statuses as of 12/19/2021) [facility] of [facility] illness Narrative* Problem Noted Date Resolved Date Right carpal tunnel syndrome 07/15/2016 Postoperative hypothyroidism 05/28/201611/2018 Left carpal tunnel syndrome 05/22/201603/09 Chronic conjunctivitis of both eyes 12/22/2015 05/28/2016 Esophageal reflux 03/15/2015 03/15/2015 Kidney stone 03/22/2012 05/28/2016 Adenopathy 10/27/2011 05/28/2016 Left axillary pain 09/16/2011 05/28/2016 Pneumonia, organism unspecified(486) 11/24/2007 12/27/2014 GASTRITIS ANTRAL( W/O Hemorrhage) 11/06/2006 12/27/2014 Acute gastritis without mention of hemorrhage 12/27/2014 Myalgia and myositis, unspecified 07/04/2005 05/28/2016 Dysphagia 05/28/2016 documented as of this encounter (statuses as of 12/20/2021) [facility] of [facility] illness Narrative* Problem Noted Date Resolved Date Right carpal tunnel syndrome 07/15/2016 Postoperative hypothyroidism 05/28/201611/2018 Left carpal tunnel syndrome 05/22/201603/09 Chronic conjunctivitis of both eyes 12/22/2015 05/28/2016 Esophageal reflux 03/15/2015 03/15/2015 Kidney stone 03/22/2012 05/28/2016 Adenopathy 10/27/2011 05/28/2016 Left axillary pain 09/16/2011 05/28/2016 Pneumonia, organism unspecified(486) 11/24/2007 12/27/2014 GASTRITIS ANTRAL( W/O Hemorrhage) 11/06/2006 12/27/2014 Acute gastritis without mention of hemorrhage 12/27/2014 Myalgia and myositis, unspecified 07/04/2005 05/28/2016 Dysphagia 05/28/2016 documented as of this encounter (statuses as of 12/25/2021) [facility] illness Narrative* Problem Noted Date Resolved Date Right carpal tunnel syndrome 07/15/2016 Postoperative hypothyroidism 05/28/201611/2018 Left carpal tunnel syndrome 05/22/201603/09 Chronic conjunctivitis of both eyes 12/22/2015 05/28/2016 Esophageal reflux 03/15/2015 03/15/2015 Kidney stone 03/22/2012 05/28/2016 Adenopathy 10/27/2011 05/28/2016 Left axillary pain 09/16/2011 05/28/2016 Pneumonia, organism unspecified(486) 11/24/2007 12/27/2014 GASTRITIS ANTRAL( W/O Hemorrhage) 11/06/2006 12/27/2014 Acute gastritis without mention of hemorrhage 12/27/2014 Myalgia and myositis, unspecified 07/04/2005 05/28/2016 Dysphagia 05/28/2016 documented as of this encounter (statuses as of 01/01/2022) [facility] Narrative* Problem Noted Date Resolved Date Right carpal tunnel syndrome 07/15/2016 Postoperative hypothyroidism 05/28/201611/2018 Left carpal tunnel syndrome 05/22/201603/09 Chronic conjunctivitis of both eyes 12/22/2015 05/28/2016 Esophageal reflux 03/15/2015 03/15/2015 Kidney stone 03/22/2012 05/28/2016 Adenopathy 10/27/2011 05/28/2016 Left axillary pain 09/16/2011 05/28/2016 Pneumonia, organism unspecified(486) 11/24/2007 12/27/2014 GASTRITIS ANTRAL( W/O Hemorrhage) 11/06/2006 12/27/2014 Acute gastritis without mention of hemorrhage 12/27/2014 Myalgia and myositis, unspecified 07/04/2005 05/28/2016 Dysphagia 05/28/2016 documented as of this encounter (statuses as of 01/23/2022) [facility] Narrative* Problem Noted Date Resolved Date Right carpal tunnel syndrome 07/15/2016 Postoperative hypothyroidism 05/28/201611/2018 Left carpal tunnel syndrome 05/22/201603/09 Chronic conjunctivitis of both eyes 12/22/2015 05/28/2016 Esophageal reflux 03/15/2015 03/15/2015 Kidney stone 03/22/2012 05/28/2016 Adenopathy 10/27/2011 05/28/2016 Left axillary pain 09/16/2011 05/28/2016 Pneumonia, organism unspecified(486) 11/24/2007 12/27/2014 GASTRITIS ANTRAL( W/O Hemorrhage) 11/06/2006 12/27/2014 Acute gastritis without mention of hemorrhage 12/27/2014 Myalgia and myositis, unspecified 07/04/2005 05/28/2016 Dysphagia 05/28/2016 documented as of this encounter (statuses as of 01/27/2022) [facility] Narrative* Problem Noted Date Resolved Date Right carpal tunnel syndrome 07/15/2016 Postoperative hypothyroidism 05/28/201611/2018 Left carpal tunnel syndrome 05/22/201603/09 Chronic conjunctivitis of both eyes 12/22/2015 05/28/2016 Esophageal reflux 03/15/2015 03/15/2015 Kidney stone 03/22/2012 05/28/2016 Adenopathy 10/27/2011 05/28/2016 Left axillary pain 09/16/2011 05/28/2016 Pneumonia, organism unspecified(486) 11/24/2007 12/27/2014 GASTRITIS ANTRAL( W/O Hemorrhage) 11/06/2006 12/27/2014 Acute gastritis without mention of hemorrhage 12/27/2014 Myalgia and myositis, unspecified 07/04/2005 05/28/2016 Dysphagia 05/28/2016 documented as of this encounter (statuses as of 02/06/2022) [facility] Narrative* Problem Noted Date Resolved Date Right carpal tunnel syndrome 07/15/2016 Postoperative hypothyroidism 05/28/201611/2018 Left carpal tunnel syndrome 05/22/201603/09 Chronic conjunctivitis of both eyes 12/22/2015 05/28/2016 Esophageal reflux 03/15/2015 03/15/2015 Kidney stone 03/22/2012 05/28/2016 Adenopathy 10/27/2011 05/28/2016 Left axillary pain 09/16/2011 05/28/2016 Pneumonia, organism unspecified(486) 11/24/2007 12/27/2014 GASTRITIS ANTRAL( W/O Hemorrhage) 11/06/2006 12/27/2014 Acute gastritis without mention of hemorrhage 12/27/2014 Myalgia and myositis, unspecified 07/04/2005 05/28/2016 Dysphagia 05/28/2016 documented as of this encounter (statuses as of 02/07/2022) [facility] Narrative* Problem Noted Date Resolved Date Right carpal tunnel syndrome 07/15/2016 Postoperative hypothyroidism 05/28/201611/2018 Left carpal tunnel syndrome 05/22/201603/09 Chronic conjunctivitis of both eyes 12/22/2015 05/28/2016 Esophageal reflux 03/15/2015 03/15/2015 Kidney stone 03/22/2012 05/28/2016 Adenopathy 10/27/2011 05/28/2016 Left axillary pain 09/16/2011 05/28/2016 Pneumonia, organism unspecified(486) 11/24/2007 12/27/2014 GASTRITIS ANTRAL( W/O Hemorrhage) 11/06/2006 12/27/2014 Acute gastritis without mention of hemorrhage 12/27/2014 Myalgia and myositis, unspecified 07/04/2005 05/28/2016 Dysphagia 05/28/2016 documented as of this encounter (statuses as of 02/20/2022) [facility] of [facility] Narrative* Problem Noted Date Resolved Date Right carpal tunnel syndrome 07/15/2016 Postoperative hypothyroidism 05/28/201611/2018 Left carpal tunnel syndrome 05/22/201603/09 Chronic conjunctivitis of both eyes 12/22/2015 05/28/2016 Esophageal reflux 03/15/2015 03/15/2015 Kidney stone 03/22/2012 05/28/2016 Adenopathy 10/27/2011 05/28/2016 Left axillary pain 09/16/2011 05/28/2016 Pneumonia, organism unspecified(486) 11/24/2007 12/27/2014 GASTRITIS ANTRAL( W/O Hemorrhage) 11/06/2006 12/27/2014 Acute gastritis without mention of hemorrhage 12/27/2014 Myalgia and myositis, unspecified 07/04/2005 05/28/2016 Dysphagia 05/28/2016 documented as of this encounter (statuses as of 03/06/2022) [facility]11-08-2016 History of Past illness Narrative* Problem Noted Date Resolved Date Right carpal tunnel syndrome 07/15/2016 Postoperative hypothyroidism 05/28/201611/2018 Left carpal tunnel syndrome 05/22/201603/09 Chronic conjunctivitis of both eyes 12/22/2015 05/28/2016 Esophageal reflux 03/15/2015 03/15/2015 Kidney stone 03/22/2012 05/28/2016 Adenopathy 10/27/2011 05/28/2016 Left axillary pain 09/16/2011 05/28/2016 Pneumonia, organism unspecified(486) 11/24/2007 12/27/2014 GASTRITIS ANTRAL( W/O Hemorrhage) 11/06/2006 12/27/2014 Acute gastritis without mention of hemorrhage 12/27/2014 Myalgia and myositis, unspecified 07/04/2005 05/28/2016 Dysphagia 05/28/2016 documented as of this encounter (statuses as of 03/24/2022) [facility]11-08-2016 History of Past illness Narrative* Problem Noted Date Resolved Date Right carpal tunnel syndrome 07/15/2016 Postoperative hypothyroidism 05/28/201611/2018 Left carpal tunnel syndrome 05/22/201603/09 Chronic conjunctivitis of both eyes 12/22/2015 05/28/2016 Esophageal reflux 03/15/2015 03/15/2015 Kidney stone 03/22/2012 05/28/2016 Adenopathy 10/27/2011 05/28/2016 Left axillary pain 09/16/2011 05/28/2016 Pneumonia, organism unspecified(486) 11/24/2007 12/27/2014 GASTRITIS ANTRAL( W/O Hemorrhage) 11/06/2006 12/27/2014 Acute gastritis without mention of hemorrhage 12/27/2014 Myalgia and myositis, unspecified 07/04/2005 05/28/2016 Dysphagia 05/28/2016 documented as of this encounter (statuses as of 03/28/2022) [facility]11-[facility]-2016 History of Past illness Narrative* Problem Noted Date Resolved Date Right carpal tunnel syndrome 07/15/2016 Postoperative hypothyroidism 05/28/201611/2018 Left carpal tunnel syndrome 05/22/201603/09 Chronic conjunctivitis of both eyes 12/22/2015 05/28/2016 Esophageal reflux 03/15/2015 03/15/2015 Kidney stone 03/22/2012 05/28/2016 Adenopathy 10/27/2011 05/28/2016 Left axillary pain 09/16/2011 05/28/2016 Pneumonia, organism unspecified(486) 11/24/2007 12/27/2014 GASTRITIS ANTRAL( W/O Hemorrhage) 11/06/2006 12/27/2014 Acute gastritis without mention of hemorrhage 12/27/2014 Myalgia and myositis, unspecified 07/04/2005 05/28/2016 Dysphagia 05/28/2016 documented as of this encounter (statuses as of 04/15/2022) [facility]11-08-2016 History of Past illness Narrative* Problem Noted Date Resolved Date Right carpal tunnel syndrome 07/15/2016 Postoperative hypothyroidism 05/28/201611/2018 Left carpal tunnel syndrome 05/22/201603/09 Chronic conjunctivitis of both eyes 12/22/2015 05/28/2016 Esophageal reflux 03/15/2015 03/15/2015 Kidney stone 03/22/2012 05/28/2016 Adenopathy 10/27/2011 05/28/2016 Left axillary pain 09/16/2011 05/28/2016 Pneumonia, organism unspecified(486) 11/24/2007 12/27/2014 GASTRITIS ANTRAL( W/O Hemorrhage) 11/06/2006 12/27/2014 Acute gastritis without mention of hemorrhage 12/27/2014 Myalgia and myositis, unspecified 07/04/2005 05/28/2016 Dysphagia 05/28/2016 documented as of this encounter (statuses as of 04/18/2022) [facility]11[facility]2016 History of Past illness Narrative* Problem Noted Date Resolved Date Right carpal tunnel syndrome 07/15/2016 Postoperative hypothyroidism 05/28/201611/2018 Left carpal tunnel syndrome 05/22/201603/09 Chronic conjunctivitis of both eyes 12/22/2015 05/28/2016 Esophageal reflux 03/15/2015 03/15/2015 Kidney stone 03/22/2012 05/28/2016 Adenopathy 10/27/2011 05/28/2016 Left axillary pain 09/16/2011 05/28/2016 Pneumonia, organism unspecified(486) 11/24/2007 12/27/2014 GASTRITIS ANTRAL( W/O Hemorrhage) 11/06/2006 12/27/2014 Acute gastritis without mention of hemorrhage 12/27/2014 Myalgia and myositis, unspecified 07/04/2005 05/28/2016 Dysphagia 05/28/2016 documented as of this encounter (statuses as of 05/16/2022) [facility]11[facility]-2016 History of Past illness Narrative* Problem Noted Date Resolved Date Right carpal tunnel syndrome 07/15/2016 Postoperative hypothyroidism 05/28/201611/2018 Left carpal tunnel syndrome 05/22/201603/09 Chronic conjunctivitis of both eyes 12/22/2015 05/28/2016 Esophageal reflux 03/15/2015 03/15/2015 Kidney stone 03/22/2012 05/28/2016 Adenopathy 10/27/2011 05/28/2016 Left axillary pain 09/16/2011 05/28/2016 Pneumonia, organism unspecified(486) 11/24/2007 12/27/2014 GASTRITIS ANTRAL( W/O Hemorrhage) 11/06/2006 12/27/2014 Acute gastritis without mention of hemorrhage 12/27/2014 Myalgia and myositis, unspecified 07/04/2005 05/28/2016 Dysphagia 05/28/2016 documented as of this encounter (statuses as of 06/13/2022) [facility]11[facility]-2016 History of Past illness Narrative* Problem Noted Date Resolved Date Right carpal tunnel syndrome 07/15/2016 Postoperative hypothyroidism 05/28/201611/2018 Left carpal tunnel syndrome 05/22/201603/09 Chronic conjunctivitis of both eyes 12/22/2015 05/28/2016 Esophageal reflux 03/15/2015 03/15/2015 Kidney stone 03/22/2012 05/28/2016 Adenopathy 10/27/2011 05/28/2016 Left axillary pain 09/16/2011 05/28/2016 Pneumonia, organism unspecified(486) 11/24/2007 12/27/2014 GASTRITIS ANTRAL( W/O Hemorrhage) 11/06/2006 12/27/2014 Acute gastritis without mention of hemorrhage 12/27/2014 Myalgia and myositis, unspecified 07/04/2005 05/28/2016 Dysphagia 05/28/2016 documented as of this encounter (statuses as of 07/14/2022) [facility]11[facility]-2016 History of Past illness Narrative* Problem Noted Date Resolved Date Right carpal tunnel syndrome 07/15/2016 Postoperative hypothyroidism 05/28/201611/2018 Left carpal tunnel syndrome 05/22/201603/09 Chronic conjunctivitis of both eyes 12/22/2015 05/28/2016 Esophageal reflux 03/15/2015 03/15/2015 Kidney stone 03/22/2012 05/28/2016 Adenopathy 10/27/2011 05/28/2016 Left axillary pain 09/16/2011 05/28/2016 Pneumonia, organism unspecified(486) 11/24/2007 12/27/2014 GASTRITIS ANTRAL( W/O Hemorrhage) 11/06/2006 12/27/2014 Acute gastritis without mention of hemorrhage 12/27/2014 Myalgia and myositis, unspecified 07/04/2005 05/28/2016 Dysphagia 05/28/2016 documented as of this encounter (statuses as of 07/17/2022) [facility]11[facility]-2016 History of Past illness Narrative* Problem Noted Date Resolved Date Right carpal tunnel syndrome 07/15/2016 Postoperative hypothyroidism 05/28/201611/2018 Left carpal tunnel syndrome 05/22/201603/09 Chronic conjunctivitis of both eyes 12/22/2015 05/28/2016 Esophageal reflux 03/15/2015 03/15/2015 Kidney stone 03/22/2012 05/28/2016 Adenopathy 10/27/2011 05/28/2016 Left axillary pain 09/16/2011 05/28/2016 Pneumonia, organism unspecified(486) 11/24/2007 12/27/2014 GASTRITIS ANTRAL( W/O Hemorrhage) 11/06/2006 12/27/2014 Acute gastritis without mention of hemorrhage 12/27/2014 Myalgia and myositis, unspecified 07/04/2005 05/28/2016 Dysphagia 05/28/2016 documented as of this encounter (statuses as of 07/22/2022) [facility]11[facility]-2016 History of Past illness Narrative* Problem Noted Date Resolved Date Right carpal tunnel syndrome 07/15/2016 Postoperative hypothyroidism 05/28/201611/2018 Left carpal tunnel syndrome 05/22/201603/09 Chronic conjunctivitis of both eyes 12/22/2015 05/28/2016 Esophageal reflux 03/15/2015 03/15/2015 Kidney stone 03/22/2012 05/28/2016 Adenopathy 10/27/2011 05/28/2016 Left axillary pain 09/16/2011 05/28/2016 Pneumonia, organism unspecified(486) 11/24/2007 12/27/2014 GASTRITIS ANTRAL( W/O Hemorrhage) 11/06/2006 12/27/2014 Acute gastritis without mention of hemorrhage 12/27/2014 Myalgia and myositis, unspecified 07/04/2005 05/28/2016 Dysphagia 05/28/2016 documented as of this encounter (statuses as of 08/04/2022) [facility]11[facility]-2016 History of Past illness Narrative* Problem Noted Date Resolved Date Right carpal tunnel syndrome 07/15/2016 Postoperative hypothyroidism 05/28/201611/2018 Left carpal tunnel syndrome 05/22/201603/09 Chronic conjunctivitis of both eyes 12/22/2015 05/28/2016 Esophageal reflux 03/15/2015 03/15/2015 Kidney stone 03/22/2012 05/28/2016 Adenopathy 10/27/2011 05/28/2016 Left axillary pain 09/16/2011 05/28/2016 Pneumonia, organism unspecified(486) 11/24/2007 12/27/2014 GASTRITIS ANTRAL( W/O Hemorrhage) 11/06/2006 12/27/2014 Acute gastritis without mention of hemorrhage 12/27/2014 Myalgia and myositis, unspecified 07/04/2005 05/28/2016 Dysphagia 05/28/2016 documented as of this encounter (statuses as of 08/08/2022) [facility]11[facility]2016 History of Past illness Narrative* Problem Noted Date Resolved Date Right carpal tunnel syndrome 07/15/2016 Postoperative hypothyroidism 05/28/201611/2018 Left carpal tunnel syndrome 05/22/201603/09 Chronic conjunctivitis of both eyes 12/22/2015 05/28/2016 Esophageal reflux 03/15/2015 03/15/2015 Kidney stone 03/22/2012 05/28/2016 Adenopathy 10/27/2011 05/28/2016 Left axillary pain 09/16/2011 05/28/2016 Pneumonia, organism unspecified(486) 11/24/2007 12/27/2014 GASTRITIS ANTRAL( W/O Hemorrhage) 11/06/2006 12/27/2014 Acute gastritis without mention of hemorrhage 12/27/2014 Myalgia and myositis, unspecified 07/04/2005 05/28/2016 Dysphagia 05/28/2016 documented as of this encounter (statuses as of 08/09/2022) [facility]11[facility]08-2016 History of Past illness Narrative* Problem Noted Date Resolved Date Right carpal tunnel syndrome 07/15/2016 Postoperative hypothyroidism 05/28/201611/2018 Left carpal tunnel syndrome 05/22/201603/09 Chronic conjunctivitis of both eyes 12/22/2015 05/28/2016 Esophageal reflux 03/15/2015 03/15/2015 Kidney stone 03/22/2012 05/28/2016 Adenopathy 10/27/2011 05/28/2016 Left axillary pain 09/16/2011 05/28/2016 Pneumonia, organism unspecified(486) 11/24/2007 12/27/2014 GASTRITIS ANTRAL( W/O Hemorrhage) 11/06/2006 12/27/2014 Acute gastritis without mention of hemorrhage 12/27/2014 Myalgia and myositis, unspecified 07/04/2005 05/28/2016 Dysphagia 05/28/2016 documented as of this encounter (statuses as of 08/14/2022) [facility]11[facility]08-2016 History of Past illness Narrative* Problem Noted Date Resolved Date Right carpal tunnel syndrome 07/15/2016 Postoperative hypothyroidism 05/28/201611/2018 Left carpal tunnel syndrome 05/22/201603/09 Chronic conjunctivitis of both eyes 12/22/2015 05/28/2016 Esophageal reflux 03/15/2015 03/15/2015 Kidney stone 03/22/2012 05/28/2016 Adenopathy 10/27/2011 05/28/2016 Left axillary pain 09/16/2011 05/28/2016 Pneumonia, organism unspecified(486) 11/24/2007 12/27/2014 GASTRITIS ANTRAL( W/O Hemorrhage) 11/06/2006 12/27/2014 Acute gastritis without mention of hemorrhage 12/27/2014 Myalgia and myositis, unspecified 07/04/2005 05/28/2016 Dysphagia 05/28/2016 documented as of this encounter (statuses as of 08/18/2022) [facility]11[facility]-2016 History of Past illness Narrative* Problem Noted Date Resolved Date Right carpal tunnel syndrome 07/15/2016 Postoperative hypothyroidism 05/28/201611/2018 Left carpal tunnel syndrome 05/22/201603/09 Chronic conjunctivitis of both eyes 12/22/2015 05/28/2016 Esophageal reflux 03/15/2015 03/15/2015 Kidney stone 03/22/2012 05/28/2016 Adenopathy 10/27/2011 05/28/2016 Left axillary pain 09/16/2011 05/28/2016 Pneumonia, organism unspecified(486) 11/24/2007 12/27/2014 GASTRITIS ANTRAL( W/O Hemorrhage) 11/06/2006 12/27/2014 Acute gastritis without mention of hemorrhage 12/27/2014 Myalgia and myositis, unspecified 07/04/2005 05/28/2016 Dysphagia 05/28/2016 documented as of this encounter (statuses as of 09/10/2022) [facility]11[facility]08-2016 History of Past illness Narrative* Problem Noted Date Resolved Date Right carpal tunnel syndrome 07/15/2016 Postoperative hypothyroidism 05/28/201611/2018 Left carpal tunnel syndrome 05/22/201603/09 Chronic conjunctivitis of both eyes 12/22/2015 05/28/2016 Esophageal reflux 03/15/2015 03/15/2015 Kidney stone 03/22/2012 05/28/2016 Adenopathy 10/27/2011 05/28/2016 Left axillary pain 09/16/2011 05/28/2016 Pneumonia, organism unspecified(486) 11/24/2007 12/27/2014 GASTRITIS ANTRAL( W/O Hemorrhage) 11/06/2006 12/27/2014 Acute gastritis without mention of hemorrhage 12/27/2014 Myalgia and myositis, unspecified 07/04/2005 05/28/2016 Dysphagia 05/28/2016 documented as of this encounter (statuses as of 09/10/2022) [facility]11[facility]08-2016 History of Past illness Narrative* Problem Noted Date Resolved Date Right carpal tunnel syndrome 07/15/2016 Postoperative hypothyroidism 05/28/201611/2018 Left carpal tunnel syndrome 05/22/201603/09 Chronic conjunctivitis of both eyes 12/22/2015 05/28/2016 Esophageal reflux 03/15/2015 03/15/2015 Kidney stone 03/22/2012 05/28/2016 Adenopathy 10/27/2011 05/28/2016 Left axillary pain 09/16/2011 05/28/2016 Pneumonia, organism unspecified(486) 11/24/2007 12/27/2014 GASTRITIS ANTRAL( W/O Hemorrhage) 11/06/2006 12/27/2014 Acute gastritis without mention of hemorrhage 12/27/2014 Myalgia and myositis, unspecified 07/04/2005 05/28/2016 Dysphagia 05/28/2016 documented as of this encounter (statuses as of 09/26/2022) [facility]11-08-2016 History of Past illness Narrative* Problem Noted Date Resolved Date Right carpal tunnel syndrome 07/15/2016 Postoperative hypothyroidism 05/28/201611/2018 Left carpal tunnel syndrome 05/22/201603/09 Chronic conjunctivitis of both eyes 12/22/2015 05/28/2016 Esophageal reflux 03/15/2015 03/15/2015 Kidney stone 03/22/2012 05/28/2016 Adenopathy 10/27/2011 05/28/2016 Left axillary pain 09/16/2011 05/28/2016 Pneumonia, organism unspecified(486) 11/24/2007 12/27/2014 GASTRITIS ANTRAL( W/O Hemorrhage) 11/06/2006 12/27/2014 Acute gastritis without mention of hemorrhage 12/27/2014 Myalgia and myositis, unspecified 07/04/2005 05/28/2016 Dysphagia 05/28/2016 documented as of this encounter (statuses as of 10/01/2022) [facility]11-08-2016 History of Past illness Narrative* Problem Noted Date Resolved Date Right carpal tunnel syndrome 07/15/2016 Postoperative hypothyroidism 05/28/201611/2018 Left carpal tunnel syndrome 05/22/201603/09 Chronic conjunctivitis of both eyes 12/22/2015 05/28/2016 Esophageal reflux 03/15/2015 03/15/2015 Kidney stone 03/22/2012 05/28/2016 Adenopathy 10/27/2011 05/28/2016 Left axillary pain 09/16/2011 05/28/2016 Pneumonia, organism unspecified(486) 11/24/2007 12/27/2014 GASTRITIS ANTRAL( W/O Hemorrhage) 11/06/2006 12/27/2014 Acute gastritis without mention of hemorrhage 12/27/2014 Myalgia and myositis, unspecified 07/04/2005 05/28/2016 Dysphagia 05/28/2016 documented as of this encounter (statuses as of 10/02/2022) [facility]11[facility]08-2016 History of Past illness Narrative* Problem Noted Date Resolved Date Right carpal tunnel syndrome 07/15/2016 Postoperative hypothyroidism 05/28/201611/2018 Left carpal tunnel syndrome 05/22/201603/09 Chronic conjunctivitis of both eyes 12/22/2015 05/28/2016 Esophageal reflux 03/15/2015 03/15/2015 Kidney stone 03/22/2012 05/28/2016 Adenopathy 10/27/2011 05/28/2016 Left axillary pain 09/16/2011 05/28/2016 Pneumonia, organism unspecified(486) 11/24/2007 12/27/2014 GASTRITIS ANTRAL( W/O Hemorrhage) 11/06/2006 12/27/2014 Acute gastritis without mention of hemorrhage 12/27/2014 Myalgia and myositis, unspecified 07/04/2005 05/28/2016 Dysphagia 05/28/2016 documented as of this encounter (statuses as of 10/13/2022) [facility]2016 History of Past illness Narrative* Problem Noted Date Resolved Date Right carpal tunnel syndrome 07/15/2016 Postoperative hypothyroidism 05/28/201611/2018 Left carpal tunnel syndrome 05/22/201603/09 Chronic conjunctivitis of both eyes 12/22/2015 05/28/2016 Esophageal reflux 03/15/2015 03/15/2015 Kidney stone 03/22/2012 05/28/2016 Adenopathy 10/27/2011 05/28/2016 Left axillary pain 09/16/2011 05/28/2016 Pneumonia, organism unspecified(486) 11/24/2007 12/27/2014 GASTRITIS ANTRAL( W/O Hemorrhage) 11/06/2006 12/27/2014 Acute gastritis without mention of hemorrhage 12/27/2014 Myalgia and myositis, unspecified 07/04/2005 05/28/2016 Dysphagia 05/28/2016 documented as of this encounter (statuses as of 10/16/2022) [facility]2016 History of Past illness Narrative* Problem Noted Date Resolved Date Right carpal tunnel syndrome 07/15/2016 Postoperative hypothyroidism 05/28/201611/2018 Left carpal tunnel syndrome 05/22/201603/09 Chronic conjunctivitis of both eyes 12/22/2015 05/28/2016 Esophageal reflux 03/15/2015 03/15/2015 Kidney stone 03/22/2012 05/28/2016 Adenopathy 10/27/2011 05/28/2016 Left axillary pain 09/16/2011 05/28/2016 Pneumonia, organism unspecified(486) 11/24/2007 12/27/2014 GASTRITIS ANTRAL( W/O Hemorrhage) 11/06/2006 12/27/2014 Acute gastritis without mention of hemorrhage 12/27/2014 Myalgia and myositis, unspecified 07/04/2005 05/28/2016 Dysphagia 05/28/2016 documented as of this encounter (statuses as of 10/16/2022) [facility]2016 History of Past illness Narrative* Problem Noted Date Resolved Date Right carpal tunnel syndrome 07/15/2016 Postoperative hypothyroidism 05/28/201611/2018 Left carpal tunnel syndrome 05/22/201603/09 Chronic conjunctivitis of both eyes 12/22/2015 05/28/2016 Esophageal reflux 03/15/2015 03/15/2015 Kidney stone 03/22/2012 05/28/2016 Adenopathy 10/27/2011 05/28/2016 Left axillary pain 09/16/2011 05/28/2016 Pneumonia, organism unspecified(486) 11/24/2007 12/27/2014 GASTRITIS ANTRAL( W/O Hemorrhage) 11/06/2006 12/27/2014 Acute gastritis without mention of hemorrhage 12/27/2014 Myalgia and myositis, unspecified 07/04/2005 05/28/2016 Dysphagia 05/28/2016 documented as of this encounter (statuses as of 11/07/2022) [facility]2016 History of Past illness Narrative* Problem Noted Date Resolved Date Right carpal tunnel syndrome 07/15/2016 Postoperative hypothyroidism 05/28/201611/2018 Left carpal tunnel syndrome 05/22/201603/09 Chronic conjunctivitis of both eyes 12/22/2015 05/28/2016 Esophageal reflux 03/15/2015 03/15/2015 Kidney stone 03/22/2012 05/28/2016 Adenopathy 10/27/2011 05/28/2016 Left axillary pain 09/16/2011 05/28/2016 Pneumonia, organism unspecified(486) 11/24/2007 12/27/2014 GASTRITIS ANTRAL( W/O Hemorrhage) 11/06/2006 12/27/2014 Acute gastritis without mention of hemorrhage 12/27/2014 Myalgia and myositis, unspecified 07/04/2005 05/28/2016 Dysphagia 05/28/2016 documented as of this encounter (statuses as of 11/14/2022) [facility]2016 History of Past illness Narrative* Problem Noted Date Resolved Date Right carpal tunnel syndrome 07/15/2016 Postoperative hypothyroidism 05/28/201611/2018 Left carpal tunnel syndrome 05/22/201603/09 Chronic conjunctivitis of both eyes 12/22/2015 05/28/2016 Esophageal reflux 03/15/2015 03/15/2015 Kidney stone 03/22/2012 05/28/2016 Adenopathy 10/27/2011 05/28/2016 Left axillary pain 09/16/2011 05/28/2016 Pneumonia, organism unspecified(486) 11/24/2007 12/27/2014 GASTRITIS ANTRAL( W/O Hemorrhage) 11/06/2006 12/27/2014 Acute gastritis without mention of hemorrhage 12/27/2014 Myalgia and myositis, unspecified 07/04/2005 05/28/2016 Dysphagia 05/28/2016 documented as of this encounter (statuses as of 12/01/2022) [facility]2016 History of Past illness Narrative* Problem Noted Date Resolved Date Right carpal tunnel syndrome 07/15/2016 Postoperative hypothyroidism 05/28/201611/2018 Left carpal tunnel syndrome 05/22/201603/09 Chronic conjunctivitis of both eyes 12/22/2015 05/28/2016 Esophageal reflux 03/15/2015 03/15/2015 Kidney stone 03/22/2012 05/28/2016 Adenopathy 10/27/2011 05/28/2016 Left axillary pain 09/16/2011 05/28/2016 Pneumonia, organism unspecified(486) 11/24/2007 12/27/2014 GASTRITIS ANTRAL( W/O Hemorrhage) 11/06/2006 12/27/2014 Acute gastritis without mention of hemorrhage 12/27/2014 Myalgia and myositis, unspecified 07/04/2005 05/28/2016 Dysphagia 05/28/2016 documented as of this encounter (statuses as of 12/03/2022) [facility]2016 History of Past illness Narrative* Problem Noted Date Resolved Date Right carpal tunnel syndrome 07/15/2016 Postoperative hypothyroidism 05/28/201611/2018 Left carpal tunnel syndrome 05/22/201603/09 Chronic conjunctivitis of both eyes 12/22/2015 05/28/2016 Esophageal reflux 03/15/2015 03/15/2015 Kidney stone 03/22/2012 05/28/2016 Adenopathy 10/27/2011 05/28/2016 Left axillary pain 09/16/2011 05/28/2016 Pneumonia, organism unspecified(486) 11/24/2007 12/27/2014 GASTRITIS ANTRAL( W/O Hemorrhage) 11/06/2006 12/27/2014 Acute gastritis without mention of hemorrhage 12/27/2014 Myalgia and myositis, unspecified 07/04/2005 05/28/2016 Dysphagia 05/28/2016 documented as of this encounter (statuses as of 12/03/2022) [facility]2016 History of Past illness Narrative* Problem Noted Date Resolved Date Right carpal tunnel syndrome 07/15/2016 Postoperative hypothyroidism 05/28/201611/2018 Left carpal tunnel syndrome 05/22/201603/09 Chronic conjunctivitis of both eyes 12/22/2015 05/28/2016 Esophageal reflux 03/15/2015 03/15/2015 Kidney stone 03/22/2012 05/28/2016 Adenopathy 10/27/2011 05/28/2016 Left axillary pain 09/16/2011 05/28/2016 Pneumonia, organism unspecified(486) 11/24/2007 12/27/2014 GASTRITIS ANTRAL( W/O Hemorrhage) 11/06/2006 12/27/2014 Acute gastritis without mention of hemorrhage 12/27/2014 Myalgia and myositis, unspecified 07/04/2005 05/28/2016 Dysphagia 05/28/2016 documented as of this encounter (statuses as of 12/10/2022) [facility]2016 History of Past illness Narrative* Problem Noted Date Resolved Date Right carpal tunnel syndrome 07/15/2016 Postoperative hypothyroidism 05/28/201611/2018 Left carpal tunnel syndrome 05/22/201603/09 Chronic conjunctivitis of both eyes 12/22/2015 05/28/2016 Esophageal reflux 03/15/2015 03/15/2015 Kidney stone 03/22/2012 05/28/2016 Adenopathy 10/27/2011 05/28/2016 Left axillary pain 09/16/2011 05/28/2016 Pneumonia, organism unspecified(486) 11/24/2007 12/27/2014 GASTRITIS ANTRAL( W/O Hemorrhage) 11/06/2006 12/27/2014 Acute gastritis without mention of hemorrhage 12/27/2014 Myalgia and myositis, unspecified 07/04/2005 05/28/2016 Dysphagia 05/28/2016 documented as of this encounter (statuses as of 12/15/2022) [facility]2016 History of Past illness Narrative* Problem Noted Date Resolved Date Right carpal tunnel syndrome 07/15/2016 Postoperative hypothyroidism 05/28/201611/2018 Left carpal tunnel syndrome 05/22/201603/09 Chronic conjunctivitis of both eyes 12/22/2015 05/28/2016 Esophageal reflux 03/15/2015 03/15/2015 Kidney stone 03/22/2012 05/28/2016 Adenopathy 10/27/2011 05/28/2016 Left axillary pain 09/16/2011 05/28/2016 Pneumonia, organism unspecified(486) 11/24/2007 12/27/2014 GASTRITIS ANTRAL( W/O Hemorrhage) 11/06/2006 12/27/2014 Acute gastritis without mention of hemorrhage 12/27/2014 Myalgia and myositis, unspecified 07/04/2005 05/28/2016 Dysphagia 05/28/2016 documented as of this encounter (statuses as of 12/19/2022) [facility]2016 History of Past illness Narrative* Problem Noted Date Resolved Date Right carpal tunnel syndrome 07/15/2016 Postoperative hypothyroidism 05/28/201611/2018 Left carpal tunnel syndrome 05/22/201603/09 Chronic conjunctivitis of both eyes 12/22/2015 05/28/2016 Esophageal reflux 03/15/2015 03/15/2015 Kidney stone 03/22/2012 05/28/2016 Adenopathy 10/27/2011 05/28/2016 Left axillary pain 09/16/2011 05/28/2016 Pneumonia, organism unspecified(486) 11/24/2007 12/27/2014 GASTRITIS ANTRAL( W/O Hemorrhage) 11/06/2006 12/27/2014 Acute gastritis without mention of hemorrhage 12/27/2014 Myalgia and myositis, unspecified 07/04/2005 05/28/2016 Dysphagia 05/28/2016 documented as of this encounter (statuses as of 01/09/2023) [facility]11-08-2016 History of Past illness Narrative* Problem Noted Date Resolved Date Right carpal tunnel syndrome 07/15/2016 Postoperative hypothyroidism 05/28/201611/2018 Left carpal tunnel syndrome 05/22/201603/09 Chronic conjunctivitis of both eyes 12/22/2015 05/28/2016 Esophageal reflux 03/15/2015 03/15/2015 Kidney stone 03/22/2012 05/28/2016 Adenopathy 10/27/2011 05/28/2016 Left axillary pain 09/16/2011 05/28/2016 Pneumonia, organism unspecified(486) 11/24/2007 12/27/2014 GASTRITIS ANTRAL( W/O Hemorrhage) 11/06/2006 12/27/2014 Acute gastritis without mention of hemorrhage 12/27/2014 Myalgia and myositis, unspecified 07/04/2005 05/28/2016 Dysphagia 05/28/2016 documented as of this encounter (statuses as of 01/16/2023) [facility]11-08-2016 History of Past illness Narrative* Problem Noted Date Resolved Date Right carpal tunnel syndrome 07/15/2016 Postoperative hypothyroidism 05/28/201611/2018 Left carpal tunnel syndrome 05/22/201603/09 Chronic conjunctivitis of both eyes 12/22/2015 05/28/2016 Esophageal reflux 03/15/2015 03/15/2015 Kidney stone 03/22/2012 05/28/2016 Adenopathy 10/27/2011 05/28/2016 Left axillary pain 09/16/2011 05/28/2016 Pneumonia, organism unspecified(486) 11/24/2007 12/27/2014 GASTRITIS ANTRAL( W/O Hemorrhage) 11/06/2006 12/27/2014 Acute gastritis without mention of hemorrhage 12/27/2014 Myalgia and myositis, unspecified 07/04/2005 05/28/2016 Dysphagia 05/28/2016 documented as of this encounter (statuses as of 02/06/2023) [facility]11-08-2016 History of Past illness Narrative* Problem Noted Date Resolved Date Right carpal tunnel syndrome 07/15/2016 Postoperative hypothyroidism 05/28/201611/2018 Left carpal tunnel syndrome 05/22/201603/09 Chronic conjunctivitis of both eyes 12/22/2015 05/28/2016 Esophageal reflux 03/15/2015 03/15/2015 Kidney stone 03/22/2012 05/28/2016 Adenopathy 10/27/2011 05/28/2016 Left axillary pain 09/16/2011 05/28/2016 Pneumonia, organism unspecified(486) 11/24/2007 12/27/2014 GASTRITIS ANTRAL( W/O Hemorrhage) 11/06/2006 12/27/2014 Acute gastritis without mention of hemorrhage 12/27/2014 Myalgia and myositis, unspecified 07/04/2005 05/28/2016 Dysphagia 05/28/2016 documented as of this encounter (statuses as of 02/06/2023) [facility]11-08-2016 History of Past illness Narrative* Problem Noted Date Resolved Date Right carpal tunnel syndrome 07/15/2016 Postoperative hypothyroidism 05/28/201611/2018 Left carpal tunnel syndrome 05/22/201603/09 Chronic conjunctivitis of both eyes 12/22/2015 05/28/2016 Esophageal reflux 03/15/2015 03/15/2015 Kidney stone 03/22/2012 05/28/2016 Adenopathy 10/27/2011 05/28/2016 Left axillary pain 09/16/2011 05/28/2016 Pneumonia, organism unspecified(486) 11/24/2007 12/27/2014 GASTRITIS ANTRAL( W/O Hemorrhage) 11/06/2006 12/27/2014 Acute gastritis without mention of hemorrhage 12/27/2014 Myalgia and myositis, unspecified 07/04/2005 05/28/2016 Dysphagia 05/28/2016 documented as of this encounter (statuses as of 02/20/2023) [facility]11-08-2016 History of Past illness Narrative* Problem Noted Date Resolved Date Right carpal tunnel syndrome 07/15/2016 Postoperative hypothyroidism 05/28/201611/2018 Left carpal tunnel syndrome 05/22/201603/09 Chronic conjunctivitis of both eyes 12/22/2015 05/28/2016 Esophageal reflux 03/15/2015 03/15/2015 Kidney stone 03/22/2012 05/28/2016 Adenopathy 10/27/2011 05/28/2016 Left axillary pain 09/16/2011 05/28/2016 Pneumonia, organism unspecified(486) 11/24/2007 12/27/2014 GASTRITIS ANTRAL( W/O Hemorrhage) 11/06/2006 12/27/2014 Acute gastritis without mention of hemorrhage 12/27/2014 Myalgia and myositis, unspecified 07/04/2005 05/28/2016 Dysphagia 05/28/2016 documented as of this encounter (statuses as of 02/27/2023) [facility]11-08-2016 History of Past illness Narrative* Problem Noted Date Resolved Date Right carpal tunnel syndrome 07/15/2016 Postoperative hypothyroidism 05/28/201611/2018 Left carpal tunnel syndrome 05/22/201603/09 Chronic conjunctivitis of both eyes 12/22/2015 05/28/2016 Esophageal reflux 03/15/2015 03/15/2015 Kidney stone 03/22/2012 05/28/2016 Adenopathy 10/27/2011 05/28/2016 Left axillary pain 09/16/2011 05/28/2016 Pneumonia, organism unspecified(486) 11/24/2007 12/27/2014 GASTRITIS ANTRAL( W/O Hemorrhage) 11/06/2006 12/27/2014 Acute gastritis without mention of hemorrhage 12/27/2014 Myalgia and myositis, unspecified 07/04/2005 05/28/2016 Dysphagia 05/28/2016 documented as of this encounter (statuses as of 03/05/2023) [facility]11-08-2016 History of Past illness Narrative* Problem Noted Date Resolved Date Right carpal tunnel syndrome 07/15/2016 Postoperative hypothyroidism 05/28/201611/2018 Left carpal tunnel syndrome 05/22/201603/09 Chronic conjunctivitis of both eyes 12/22/2015 05/28/2016 Esophageal reflux 03/15/2015 03/15/2015 Kidney stone 03/22/2012 05/28/2016 Adenopathy 10/27/2011 05/28/2016 Left axillary pain 09/16/2011 05/28/2016 Pneumonia, organism unspecified(486) 11/24/2007 12/27/2014 GASTRITIS ANTRAL( W/O Hemorrhage) 11/06/2006 12/27/2014 Acute gastritis without mention of hemorrhage 12/27/2014 Myalgia and myositis, unspecified 07/04/2005 05/28/2016 Dysphagia 05/28/2016 documented as of this encounter (statuses as of 03/06/2023) [facility]11-08-2016 History of Past illness Narrative* Problem Noted Date Diagnosed Date Resolved Date Right carpal tunnel syndrome 07/15/2016 04/06/2018 Postoperative hypothyroidism 05/28/2016 06/09/2019 Left carpal tunnel syndrome 05/22/2016 04/06/2018 Chronic conjunctivitis of both eyes 12/22/2015 05/28/2016 Esophageal reflux 03/15/2015 03/15/2015 Kidney stone 03/22/2012 05/28/2016 Adenopathy 10/27/2011 05/28/2016 Left axillary pain 09/16/2011 6 Pneumonia, organism unspecified(486) 11/24/2007 12/27/2014 GASTRITIS ANTRAL( W/O Hemorrhage) 11/06/2006 12/27/2014 Acute gastritis without mention of hemorrhage 11/07/1912/27/2014 Myalgia and myositis, unspecified 07/04/2005 05/28/2016 Dysphagia 05/28/2016 documented as of this encounter (statuses as of 03/23/2023) [facility]11-08-2016 History of Past illness Narrative* Problem Noted Date Diagnosed Date Resolved Date Right carpal tunnel syndrome 07/15/2016 04/06/2018 Postoperative hypothyroidism 05/28/2016 06/09/2019 Left carpal tunnel syndrome 05/22/2016 04/06/2018 Chronic conjunctivitis of both eyes 12/22/2015 05/28/2016 Esophageal reflux 03/15/2015 03/15/2015 Kidney stone 03/22/2012 05/28/2016 Adenopathy 10/27/2011 05/28/2016 Left axillary pain 09/16/2011 6 Pneumonia, organism unspecified(486) 11/24/2007 12/27/2014 GASTRITIS ANTRAL( W/O Hemorrhage) 11/06/2006 12/27/2014 Acute gastritis without mention of hemorrhage 11/07/19 07 12/27/2014 Myalgia and myositis, unspecified 07/04/2005 05/28/2016 Dysphagia 05/28/2016 documented as of this encounter (statuses as of 04/15/2023) [facility]11-08-2016 History of Past illness Narrative* Problem Noted Date Diagnosed Date Resolved Date Right carpal tunnel syndrome 07/15/2016 04/06/2018 Postoperative hypothyroidism 05/28/2016 06/09/2019 Left carpal tunnel syndrome 05/22/2016 04/06/2018 Chronic conjunctivitis of both eyes 12/22/2015 05/28/2016 Esophageal reflux 03/15/2015 03/15/2015 Kidney stone 03/22/2012 05/28/2016 Adenopathy 10/27/2011 05/28/2016 Left axillary pain 09/16/2011 6 Pneumonia, organism unspecified(486) 11/24/2007 12/27/2014 GASTRITIS ANTRAL( W/O Hemorrhage) 11/06/2006 12/27/2014 Acute gastritis without mention of hemorrhage 11/07/19 07 12/27/2014 Myalgia and myositis, unspecified 07/04/2005 05/28/2016 Dysphagia 05/28/2016 documented as of this encounter (statuses as of 04/21/2023) [facility]11-08-2016 History of Past illness Narrative* Problem Noted Date Diagnosed Date Resolved Date Right carpal tunnel syndrome 07/15/2016 04/06/2018 Postoperative hypothyroidism 05/28/2016 06/09/2019 Left carpal tunnel syndrome 05/22/2016 04/06/2018 Chronic conjunctivitis of both eyes 12/22/2015 05/28/2016 Esophageal reflux 03/15/2015 03/15/2015 Kidney stone 03/22/2012 05/28/2016 Adenopathy 10/27/2011 05/28/2016 Left axillary pain 09/16/2011 6 Pneumonia, organism unspecified(486) 11/24/2007 12/27/2014 GASTRITIS ANTRAL( W/O Hemorrhage) 11/06/2006 12/27/2014 Acute gastritis without mention of hemorrhage 11/07/19 07 12/27/2014 Myalgia and myositis, unspecified 07/04/2005 05/28/2016 Dysphagia 05/28/2016 documented as of this encounter (statuses as of 05/04/2023) [facility]11-08-2016 History of Past illness Narrative* Problem Noted Date Diagnosed Date Resolved Date Right carpal tunnel syndrome 07/15/2016 04/06/2018 Postoperative hypothyroidism 05/28/2016 06/09/2019 Left carpal tunnel syndrome 05/22/2016 04/06/2018 Chronic conjunctivitis of both eyes 12/22/2015 05/28/2016 Esophageal reflux 03/15/2015 03/15/2015 Kidney stone 03/22/2012 05/28/2016 Adenopathy 10/27/2011 05/28/2016 Left axillary pain 09/16/2011 6 Pneumonia, organism unspecified(486) 11/24/2007 12/27/2014 GASTRITIS ANTRAL( W/O Hemorrhage) 11/06/2006 12/27/2014 Acute gastritis without mention of hemorrhage 11/07/19 07 12/27/2014 Myalgia and myositis, unspecified 07/04/2005 05/28/2016 Dysphagia 05/28/2016 documented as of this encounter (statuses as of 05/27/2023) [facility]11-08-2016 History of Past illness Narrative* Problem Noted Date Diagnosed Date Resolved Date Right carpal tunnel syndrome 07/15/2016 04/06/2018 Postoperative hypothyroidism 05/28/2016 06/09/2019 Left carpal tunnel syndrome 05/22/2016 04/06/2018 Chronic conjunctivitis of both eyes 12/22/2015 05/28/2016 Esophageal reflux 03/15/2015 03/15/2015 Kidney stone 03/22/2012 05/28/2016 Adenopathy 10/27/2011 05/28/2016 Left axillary pain 09/16/2011 6 Pneumonia, organism unspecified(486) 11/24/2007 12/27/2014 GASTRITIS ANTRAL( W/O Hemorrhage) 11/06/2006 12/27/2014 Acute gastritis without mention of hemorrhage 11/07/19 07 12/27/2014 Myalgia and myositis, unspecified 07/04/2005 05/28/2016 Dysphagia 05/28/2016 documented as of this encounter (statuses as of 06/30/2023) [facility]11-08-2016 History of Past illness Narrative* Problem Noted Date Diagnosed Date Resolved Date Right carpal tunnel syndrome 07/15/2016 04/06/2018 Postoperative hypothyroidism 05/28/2016 06/09/2019 Left carpal tunnel syndrome 05/22/2016 04/06/2018 Chronic conjunctivitis of both eyes 12/22/2015 05/28/2016 Esophageal reflux 03/15/2015 03/15/2015 Kidney stone 03/22/2012 05/28/2016 Adenopathy 10/27/2011 05/28/2016 Left axillary pain 09/16/2011 6 Pneumonia, organism unspecified(486) 11/24/2007 12/27/2014 GASTRITIS ANTRAL( W/O Hemorrhage) 11/06/2006 12/27/2014 Acute gastritis without mention of hemorrhage 11/07/19 07 12/27/2014 Myalgia and myositis, unspecified 07/04/2005 05/28/2016 Dysphagia 05/28/2016 documented as of this encounter (statuses as of 07/12/2023) [facility]11-08-2016 History of Past illness Narrative* Problem Noted Date Diagnosed Date Resolved Date Right carpal tunnel syndrome 07/15/2016 04/06/2018 Postoperative hypothyroidism 05/28/2016 06/09/2019 Left carpal tunnel syndrome 05/22/2016 04/06/2018 Chronic conjunctivitis of both eyes 12/22/2015 05/28/2016 Esophageal reflux 03/15/2015 03/15/2015 Kidney stone 03/22/2012 05/28/2016 Adenopathy 10/27/2011 05/28/2016 Left axillary pain 09/16/2011 6 Pneumonia, organism unspecified(486) 11/24/2007 12/27/2014 GASTRITIS ANTRAL( W/O Hemorrhage) 11/06/2006 12/27/2014 Acute gastritis without mention of hemorrhage 11/07/19 07 12/27/2014 Myalgia and myositis, unspecified 07/04/2005 05/28/2016 Dysphagia 05/28/2016 documented as of this encounter (statuses as of 07/12/2023) [facility]11-08-2016 History of Past illness Narrative* Problem Noted Date Diagnosed Date Resolved Date Right carpal tunnel syndrome 07/15/2016 04/06/2018 Postoperative hypothyroidism 05/28/2016 06/09/2019 Left carpal tunnel syndrome 05/22/2016 04/06/2018 Chronic conjunctivitis of both eyes 12/22/2015 05/28/2016 Esophageal reflux 03/15/2015 03/15/2015 Kidney stone 03/22/2012 05/28/2016 Adenopathy 10/27/2011 05/28/2016 Left axillary pain 09/16/2011 6 Pneumonia, organism unspecified(486) 11/24/2007 12/27/2014 GASTRITIS ANTRAL( W/O Hemorrhage) 11/06/2006 12/27/2014 Acute gastritis without mention of hemorrhage 11/07/19 07 12/27/2014 Myalgia and myositis, unspecified 07/04/2005 05/28/2016 Dysphagia 05/28/2016 documented as of this encounter (statuses as of 07/15/2023) [facility]11-08-2016 History of Past illness Narrative* Problem Noted Date Diagnosed Date Resolved Date Right carpal tunnel syndrome 07/15/2016 04/06/2018 Postoperative hypothyroidism 05/28/2016 06/09/2019 Left carpal tunnel syndrome 05/22/2016 04/06/2018 Chronic conjunctivitis of both eyes 12/22/2015 05/28/2016 Esophageal reflux 03/15/2015 03/15/2015 Kidney stone 03/22/2012 05/28/2016 Adenopathy 10/27/2011 05/28/2016 Left axillary pain 09/16/2011 6 Pneumonia, organism unspecified(486) 11/24/2007 12/27/2014 GASTRITIS ANTRAL( W/O Hemorrhage) 11/06/2006 12/27/2014 Acute gastritis without mention of hemorrhage 11/07/19 07 12/27/2014 Myalgia and myositis, unspecified 07/04/2005 05/28/2016 Dysphagia 05/28/2016 documented as of this encounter (statuses as of 07/16/2023) [facility]11-08-2016 History of Past illness Narrative* Problem Noted Date Diagnosed Date Resolved Date Right carpal tunnel syndrome 07/15/2016 04/06/2018 Postoperative hypothyroidism 05/28/2016 06/09/2019 Left carpal tunnel syndrome 05/22/2016 04/06/2018 Chronic conjunctivitis of both eyes 12/22/2015 05/28/2016 Esophageal reflux 03/15/2015 03/15/2015 Kidney stone 03/22/2012 05/28/2016 Adenopathy 10/27/2011 05/28/2016 Left axillary pain 09/16/2011 6 Pneumonia, organism unspecified(486) 11/24/2007 12/27/2014 GASTRITIS ANTRAL( W/O Hemorrhage) 11/06/2006 12/27/2014 Acute gastritis without mention of hemorrhage 11/07/19 07 12/27/2014 Myalgia and myositis, unspecified 07/04/2005 05/28/2016 Dysphagia 05/28/2016 documented as of this encounter (statuses as of 07/20/2023) [facility]11-08-2016 History of Past illness Narrative* Problem Noted Date Diagnosed Date Resolved Date Right carpal tunnel syndrome 07/15/2016 04/06/2018 Postoperative hypothyroidism 05/28/2016 06/09/2019 Left carpal tunnel syndrome 05/22/2016 04/06/2018 Chronic conjunctivitis of both eyes 12/22/2015 05/28/2016 Esophageal reflux 03/15/2015 03/15/2015 Kidney stone 03/22/2012 05/28/2016 Adenopathy 10/27/2011 05/28/2016 Left axillary pain 09/16/2011 6 Pneumonia, organism unspecified(486) 11/24/2007 12/27/2014 GASTRITIS ANTRAL( W/O Hemorrhage) 11/06/2006 12/27/2014 Acute gastritis without mention of hemorrhage 11/07/19 07 12/27/2014 Myalgia and myositis, unspecified 07/04/2005 05/28/2016 Dysphagia 05/28/2016 documented as of this encounter (statuses as of 07/27/2023) [facility]11-08-2016 History of Past illness Narrative* Problem Noted Date Diagnosed Date Resolved Date Right carpal tunnel syndrome 07/15/2016 04/06/2018 Postoperative hypothyroidism 05/28/2016 06/09/2019 Left carpal tunnel syndrome 05/22/2016 04/06/2018 Chronic conjunctivitis of both eyes 12/22/2015 05/28/2016 Esophageal reflux 03/15/2015 03/15/2015 Kidney stone 03/22/2012 05/28/2016 Adenopathy 10/27/2011 05/28/2016 Left axillary pain 09/16/2011 6 Pneumonia, organism unspecified(486) 11/24/2007 12/27/2014 GASTRITIS ANTRAL( W/O Hemorrhage) 11/06/2006 12/27/2014 Acute gastritis without mention of hemorrhage 11/07/19 07 12/27/2014 Myalgia and myositis, unspecified 07/04/2005 05/28/2016 Dysphagia 05/28/2016 documented as of this encounter (statuses as of 08/07/2023) [facility]11-08-2016 History of Past illness Narrative* Problem Noted Date Diagnosed Date Resolved Date Right carpal tunnel syndrome 07/15/2016 04/06/2018 Postoperative hypothyroidism 05/28/2016 06/09/2019 Left carpal tunnel syndrome 05/22/2016 04/06/2018 Chronic conjunctivitis of both eyes 12/22/2015 05/28/2016 Esophageal reflux 03/15/2015 03/15/2015 Kidney stone 03/22/2012 05/28/2016 Adenopathy 10/27/2011 05/28/2016 Left axillary pain 09/16/2011 6 Pneumonia, organism unspecified(486) 11/24/2007 12/27/2014 GASTRITIS ANTRAL( W/O Hemorrhage) 11/06/2006 12/27/2014 Acute gastritis without mention of hemorrhage 11/07/19 07 12/27/2014 Myalgia and myositis, unspecified 07/04/2005 05/28/2016 Dysphagia 05/28/2016 documented as of this encounter (statuses as of 08/21/2023) [facility]11[facility]-2016 History of Past illness Narrative* Problem Noted Date Diagnosed Date Resolved Date Right carpal tunnel syndrome 07/15/2016 04/06/2018 Postoperative hypothyroidism 05/28/2016 06/09/2019 Left carpal tunnel syndrome 05/22/2016 04/06/2018 Chronic conjunctivitis of both eyes 12/22/2015 05/28/2016 Esophageal reflux 03/15/2015 03/15/2015 Kidney stone 03/22/2012 05/28/2016 Adenopathy 10/27/2011 05/28/2016 Left axillary pain 09/16/2011 6 Pneumonia, organism unspecified(486) 11/24/2007 12/27/2014 GASTRITIS ANTRAL( W/O Hemorrhage) 11/06/2006 12/27/2014 Acute gastritis without mention of hemorrhage 11/07/19 07 12/27/2014 Myalgia and myositis, unspecified 07/04/2005 05/28/2016 Dysphagia 05/28/2016 documented as of this encounter (statuses as of 10/20/2023) [facility]11[facility]-2016 History of Past illness Narrative* Problem Noted Date Diagnosed Date Resolved Date Right carpal tunnel syndrome 07/15/2016 04/06/2018 Postoperative hypothyroidism 05/28/2016 06/09/2019 Left carpal tunnel syndrome 05/22/2016 04/06/2018 Chronic conjunctivitis of both eyes 12/22/2015 05/28/2016 Esophageal reflux 03/15/2015 03/15/2015 Kidney stone 03/22/2012 05/28/2016 Adenopathy 10/27/2011 05/28/2016 Left axillary pain 09/16/2011 6 Pneumonia, organism unspecified(486) 11/24/2007 12/27/2014 GASTRITIS ANTRAL( W/O Hemorrhage) 11/06/2006 12/27/2014 Acute gastritis without mention of hemorrhage 11/07/19 07 12/27/2014 Myalgia and myositis, unspecified 07/04/2005 05/28/2016 Dysphagia 05/28/2016 documented as of this encounter (statuses as of 12/21/2023) [facility] Miscellaneous Notes* [facility]/22/2014 1:28 PM EST [facility]* [facility] - 08/22/2014 1:28 PM EST [facility] note* Diagnosis ILD (interstitial lung disease) (HCC)- Primary Postinflammatory pulmonary fibrosis documented in this encounter [facility] note* Diagnosis ILD (interstitial lung disease) (HCC)- Primary Postinflammatory pulmonary fibrosis documented in this encounter [facility] note* Diagnosis Interstitial pulmonary disease (HCC) Postinflammatory pulmonary fibrosis SOB (shortness of breath) Shortness of breath documented in this encounter [facility] note* Diagnosis Interstitial pulmonary disease (HCC) Postinflammatory pulmonary fibrosis [facility] Diagnosis Encounter for screening mammogram for breast cancer [facility] Diagnosis Seropositive rheumatoid arthritis (HCC)- Primary Rheumatoid arthritis Osteopenia, unspecified location Fibromyalgia Mylagia and myositis, unspecified Encounter for long-term (current) use of medications Encounter for long-term (current) use of other medications documented in this encounter [facility] note* Diagnosis Vitamin D deficiency- Primary Unspecified vitamin D deficiency documented in this encounter [facility] note* Diagnosis Seropositive rheumatoid arthritis (HCC)- Primary Rheumatoid arthritis documented in this encounter [facility] note* Diagnosis Seropositive rheumatoid arthritis (HCC)- Primary Rheumatoid arthritis documented in this encounter [facility] note* Diagnosis Rheumatoid arthritis involving multiple sites with positive rheumatoid factor (HCC)- Primary documented in this encounter [facility] note* Diagnosis Seropositive rheumatoid arthritis (HCC)- Primary Rheumatoid arthritis documented in this encounter [facility] note* Diagnosis Hypothyroidism, acquired Unspecified hypothyroidism documented in this encounter [facility] note* Diagnosis Osteopenia, unspecified location- Primary [facility] noteNo assessment information availableWFire[facility] Work Phone: Evaluation note* Diagnosis Foot injury, left, initial encounter- Primary [facility]* Diagnosis Foot sprain, left, initial encounter- Primary [facility]* Diagnosis Closed nondisplaced fracture of distal phalanx of left great toe with routine healing, subsequent encounter- [facility] Diagnosis Rheumatoid arthritis involving multiple sites with positive rheumatoid factor (HCC)- Primary [facility] Diagnosis Rheumatoid arthritis involving multiple sites with positive rheumatoid factor (HCC)- [facility] Diagnosis URI, acute- Primary Acute upper respiratory infections of unspecified site Acute cough Wheezing [facility] Diagnosis Seropositive rheumatoid arthritis (HCC)- Primary Rheumatoid arthritis Osteopenia, unspecified location Fibromyalgia Mylagia and myositis, unspecified Encounter for long-term (current) use of medications Encounter for long-term (current) use of other medications Other osteoarthritis of spine, cervical region Upper back pain [facility] Diagnosis Positive self-administered antigen test for COVID-19- Primary [facility] Diagnosis Seropositive rheumatoid arthritis (HCC) Rheumatoid arthritis [facility] Diagnosis Seropositive rheumatoid arthritis (HCC)- Primary Rheumatoid arthritis Encounter for antineoplastic immunotherapy Encounter for long-term (current) use of high-risk medication Encounter for long-term (current) use of other medications [facility] Diagnosis Sciatica, right side- Primary Acute right hip pain Pain in joint, pelvic region and thigh Pain of right lower leg Pain in limb History of fall Personal history of fall [facility] Diagnosis Sciatica, right side- Primary [facility] Leg swelling- Primary Swelling of limb [facility] Diagnosis Left leg swelling- Primary Swelling of limb Pain of left lower extremity documented in this encounter [facility] Diagnosis Sciatica, right side- Primary [facility] Diagnosis Foot sprain, left, initial encounter [facility] Diagnosis Leg swelling Swelling of limb [facility]* Diagnosis Seropositive rheumatoid arthritis (HCC)- Primary Rheumatoid arthritis Long-term use of Plaquenil Encounter for long-term (current) use of other medications Long-term use of immunosuppressant medication Encounter for long-term (current) use of other medications Osteopenia of multiple sites Adverse effect of drug, sequela [facility]* Diagnosis Sciatica, right side [facility] Diagnosis Seropositive rheumatoid arthritis (HCC)- Primary Rheumatoid arthritis Hypothyroidism, acquired Unspecified hypothyroidism 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) [facility] Diagnosis 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 Seropositive rheumatoid arthritis (HCC) Rheumatoid arthritis Osteopenia, unspecified location [facility]* Diagnosis Sciatica, right side [facility]* Diagnosis Encounter for screening mammogram for breast cancer [facility]* Diagnosis Bilateral primary osteoarthritis of knee- Primary Rheumatoid arthritis involving both hands, unspecified whether rheumatoid factor present (HCC) [facility]* Diagnosis Overweight (BMI 25.0-29.9) Overweight [facility]* Diagnosis Overweight (BMI 25.0-29.9) Overweight [facility]* Diagnosis 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 Encounter for antineoplastic immunotherapy Encounter for long-term (current) use of high-risk medication Encounter for long-term (current) use of other medications [facility]* Diagnosis Sciatica, right side [facility]* Diagnosis Hypothyroidism, acquired Unspecified hypothyroidism [facility]* Diagnosis 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 Encounter for antineoplastic immunotherapy [facility]* Diagnosis Bilateral primary osteoarthritis of knee- Primary Acquired varus deformity knee, right Chronic pain of left knee Pain in joint, lower leg [facility]* Diagnosis Bilateral primary osteoarthritis of knee- Primary Chronic pain of left knee Pain in joint, lower leg [facility]* Diagnosis Bilateral primary osteoarthritis of knee Chronic pain of left knee Pain in joint, lower leg [facility]* Diagnosis Bilateral primary osteoarthritis of knee- Primary Chronic pain of left knee Pain in joint, lower leg [facility] Diagnosis Bilateral primary osteoarthritis of knee- Primary Chronic pain of left knee Pain in joint, lower leg [facility]* Diagnosis Bilateral primary osteoarthritis of knee- Primary Chronic pain of left knee Pain in joint, lower leg [facility] Diagnosis Primary osteoarthritis of both knees- Primary Primary localized osteoarthrosis, lower leg Rheumatoid arthritis involving both knees, unspecified whether rheumatoid factor present (HCC) [facility]* Diagnosis Sciatica, right side [facility]* Diagnosis Primary osteoarthritis of both knees- Primary Primary localized osteoarthrosis, lower leg Rheumatoid arthritis involving both knees, unspecified whether rheumatoid factor present (HCC) Preop examination Preoperative examination, unspecified Primary osteoarthritis of both knees Primary localized osteoarthrosis, lower leg [facility]* Diagnosis Primary osteoarthritis of both knees- Primary Primary localized osteoarthrosis, lower leg Primary osteoarthritis of both knees Primary localized osteoarthrosis, lower leg [facility]* Diagnosis Overweight (BMI 25.0-29.9)- Primary Overweight Eczema, unspecified type Thyroid cancer (HCC) Malignant neoplasm of thyroid gland Common wart Other specified viral warts Hypothyroidism, acquired Unspecified hypothyroidism Primary osteoarthritis of both knees Primary localized osteoarthrosis, lower leg [facility]* Diagnosis Seropositive rheumatoid arthritis (HCC)- Primary Rheumatoid arthritis Osteopenia of multiple sites Encounter for long-term (current) use of medications Encounter for long-term (current) use of other medications Fibromyalgia Mylagia and myositis, unspecified Primary osteoarthritis of both knees Primary localized osteoarthrosis, lower leg [facility] Diagnosis Pain Generalized pain Primary osteoarthritis of both knees Primary localized osteoarthrosis, lower leg [facility]* Diagnosis Dizziness- Primary Dizziness and giddiness Primary osteoarthritis of both knees Primary localized osteoarthrosis, lower leg [facility] Diagnosis Hospital discharge follow-up- Primary Other follow-up examination Syncope, unspecified syncope type Hypothyroidism, acquired Unspecified hypothyroidism Thyroid cancer (HCC) Malignant neoplasm of thyroid gland Contact dermatitis, unspecified contact dermatitis type, unspecified trigger Sciatica, right side Screening for depression Encounter for screening examination for other mental health and behavioral disorders Primary osteoarthritis of both knees Primary localized osteoarthrosis, lower leg [facility] Diagnosis Sciatica, right side Acute right hip pain Pain in joint, pelvic region and thigh Pain of right lower leg Pain in limb Primary osteoarthritis of both knees Primary localized osteoarthrosis, lower leg [facility]* Diagnosis Leg swelling Swelling of limb Primary osteoarthritis of both knees Primary localized osteoarthrosis, lower leg [facility]* Diagnosis Closed nondisplaced fracture of distal phalanx of left great toe with routine healing, subsequent encounter Other osteoarthritis of spine, cervical region Upper back pain Primary osteoarthritis of both knees Primary localized osteoarthrosis, lower leg [facility]* Diagnosis URI, acute Acute upper respiratory infections of unspecified site Acute cough Primary osteoarthritis of both knees Primary localized osteoarthrosis, lower leg [facility]* Diagnosis Foot injury, left, initial encounter Primary osteoarthritis of both knees Primary localized osteoarthrosis, lower leg [facility]* Diagnosis Viral warts, unspecified type- Primary Primary osteoarthritis of both knees Primary localized osteoarthrosis, lower leg [facility]* Diagnosis Pain in both wrists Pain in joint, forearm Primary osteoarthritis of both knees Primary localized osteoarthrosis, lower leg [facility]* Diagnosis Cough Primary osteoarthritis of both knees Primary localized osteoarthrosis, lower leg [facility]* Diagnosis Syncope, unspecified syncope type Primary osteoarthritis of both knees Primary localized osteoarthrosis, lower leg [facility]* Diagnosis Seropositive rheumatoid arthritis (HCC) Rheumatoid arthritis Primary osteoarthritis of both knees Primary localized osteoarthrosis, lower leg [facility]* Diagnosis Abnormal finding on MRI of brain- Primary Nonspecific (abnormal) findings on radiological and other examination of skull and head Memory changes Memory loss Bacterial sinusitis Unspecified sinusitis (chronic) Primary osteoarthritis of both knees Primary localized osteoarthrosis, lower leg [facility]* Diagnosis Primary osteoarthritis of both knees Primary localized osteoarthrosis, lower leg Rheumatoid arthritis involving both knees, unspecified whether rheumatoid factor present (HCC) Preop examination Preoperative examination, unspecified Primary osteoarthritis of both knees Primary localized osteoarthrosis, lower leg [facility]* Diagnosis Sciatica, right side Overweight (BMI 25.0-29.9) Overweight Primary osteoarthritis of both knees Primary localized osteoarthrosis, lower leg [facility] Diagnosis Thyroid cancer (HCC)- Primary Malignant neoplasm of thyroid gland Primary osteoarthritis of both knees Primary localized osteoarthrosis, lower leg [facility] this [facility]* Diagnosis Pre-operative examination- Primary Preoperative examination, unspecified Primary fibromyalgia syndrome Mylagia and myositis, unspecified Gastroesophageal reflux disease, unspecified whether esophagitis present Chronic kidney insufficiency, stage 3 (moderate) (HCC) Thyroid cancer (HCC) Malignant neoplasm of thyroid gland Rheumatoid arthritis involving multiple sites with positive rheumatoid factor (HCC) Psoriasis Other psoriasis Osteopenia, unspecified location Constipation, unspecified constipation type Postoperative hypothyroidism Postsurgical hypothyroidism Primary osteoarthritis of both knees Primary localized osteoarthrosis, lower leg * Assessment & Plan Note - Kacy Olivas APRN.CNP - 08/11/2024 6:44 AM EST Associated Problem(s): Postoperative hypothyroidism Assessment: on rx, asymptomatic TSH Date Value Ref Range Status 05/26/2024 0.071 (L) 0.270 - 4.200 mIU/L Final * Assessment & Plan Note - Kacy Olivas APRN.CNP - 08/11/2024 6:44 AM EST Associated Problem(s): Constipation Assessment: rx as needed * Assessment & Plan Note - Kacy Olivas APRN.CNP - 08/11/2024 6:43 AM EST Associated Problem(s): Osteopenia Assessment: taking supplement * Assessment & Plan Note - Kacy Olivas APRN.CNP - 08/11/2024 6:43 AM EST Associated Problem(s): Psoriasis Assessment: following rheumatology * Assessment & Plan Note - Kacy Olivas APRN.CNP - 08/11/2024 6:43 AM EST Associated Problem(s): RA (rheumatoid arthritis) ([facility]) Assessment: controlled on rx, following rheumatology * Assessment & Plan Note - Kcay Olivas APRN.CNP - 08/11/2024 6:42 AM EST Associated Problem(s): Thyroid cancer (HCC) Assessment: s/p thyroidectomy and GAMING * Assessment & Plan Note - Kacy Olivas APRN.CNP - 08/11/2024 6:42 AM EST Associated Problem(s): Chronic kidney insufficiency, stage 3 (moderate) ([facility]) Assessment: hx, resolved Creatinine Date Value Ref Range Status 08/08/2024 0.84 0.58 - 0.96 mg/dL Final 05/17/2024 0.91 0.58 - 0.96 mg/dL Final 07/16/2023 0.79 0.58 - 0.96 mg/dL Final 05/20/2023 0.77 0.58 - 0.96 mg/dL Final * Assessment & Plan Note - Kacy Olivas APRN.CNP - 08/11/2024 6:42 AM EST Associated Problem(s): GERD (gastroesophageal reflux disease) Assessment: denies any current symptoms or tx * Assessment & Plan Note - Kacy Olivas APRN.CNP - 08/11/2024 6:42 AM EST Associated Problem(s): Primary fibromyalgia syndrome Assessment: controlled on rx documented in this encounter [facility] note* Diagnosis Pre-operative examination- Primary Preoperative examination, unspecified Primary fibromyalgia syndrome Mylagia and myositis, unspecified Gastroesophageal reflux disease, unspecified whether esophagitis present Chronic kidney insufficiency, stage 3 (moderate) (HCC) Thyroid cancer (HCC) Malignant neoplasm of thyroid gland Rheumatoid arthritis involving multiple sites with positive rheumatoid factor (HCC) Psoriasis Other psoriasis Osteopenia, unspecified location Constipation, unspecified constipation type Postoperative hypothyroidism Postsurgical hypothyroidism S/P total knee arthroplasty, right- Primary documented in this encounter [facility] note* Diagnosis Pre-operative examination- Primary Preoperative examination, unspecified Primary fibromyalgia syndrome Mylagia and myositis, unspecified Gastroesophageal reflux disease, unspecified whether esophagitis present Chronic kidney insufficiency, stage 3 (moderate) (HCC) Thyroid cancer (HCC) Malignant neoplasm of thyroid gland Rheumatoid arthritis involving multiple sites with positive rheumatoid factor (HCC) Psoriasis Other psoriasis Osteopenia, unspecified location Constipation, unspecified constipation type Postoperative hypothyroidism Postsurgical hypothyroidism S/P total knee arthroplasty, right documented in this encounter [facility] note* Diagnosis Pre-operative examination- Primary Preoperative examination, unspecified Primary fibromyalgia syndrome Mylagia and myositis, unspecified Gastroesophageal reflux disease, unspecified whether esophagitis present Chronic kidney insufficiency, stage 3 (moderate) (HCC) Thyroid cancer (HCC) Malignant neoplasm of thyroid gland Rheumatoid arthritis involving multiple sites with positive rheumatoid factor (HCC) Psoriasis Other psoriasis Osteopenia, unspecified location Constipation, unspecified constipation type Postoperative hypothyroidism Postsurgical hypothyroidism S/P total knee arthroplasty, right- Primary documented in this encounter [facility] note* Diagnosis Pre-operative examination- Primary Preoperative examination, unspecified Primary fibromyalgia syndrome Mylagia and myositis, unspecified Gastroesophageal reflux disease, unspecified whether esophagitis present Chronic kidney insufficiency, stage 3 (moderate) (HCC) Thyroid cancer (HCC) Malignant neoplasm of thyroid gland Rheumatoid arthritis involving multiple sites with positive rheumatoid factor (HCC) Psoriasis Other psoriasis Osteopenia, unspecified location Constipation, unspecified constipation type Postoperative hypothyroidism Postsurgical hypothyroidism S/P total knee arthroplasty, right- Primary documented in this encounter [facility] note* Diagnosis Pre-operative examination- Primary Preoperative examination, unspecified Primary fibromyalgia syndrome Mylagia and myositis, unspecified Gastroesophageal reflux disease, unspecified whether esophagitis present Chronic kidney insufficiency, stage 3 (moderate) (HCC) Thyroid cancer (HCC) Malignant neoplasm of thyroid gland Rheumatoid arthritis involving multiple sites with positive rheumatoid factor (HCC) Psoriasis Other psoriasis Osteopenia, unspecified location Constipation, unspecified constipation type Postoperative hypothyroidism Postsurgical hypothyroidism S/P total knee arthroplasty, right documented in this encounter [facility] note* Diagnosis Pre-operative examination- Primary Preoperative examination, unspecified Primary fibromyalgia syndrome Mylagia and myositis, unspecified Gastroesophageal reflux disease, unspecified whether esophagitis present Chronic kidney insufficiency, stage 3 (moderate) (HCC) Thyroid cancer (HCC) Malignant neoplasm of thyroid gland Rheumatoid arthritis involving multiple sites with positive rheumatoid factor (HCC) Psoriasis Other psoriasis Osteopenia, unspecified location Constipation, unspecified constipation type Postoperative hypothyroidism Postsurgical hypothyroidism S/P total knee arthroplasty, right- Primary documented in this encounter [facility] note* Diagnosis Pre-operative examination- Primary Preoperative examination, unspecified Primary fibromyalgia syndrome Mylagia and myositis, unspecified Gastroesophageal reflux disease, unspecified whether esophagitis present Chronic kidney insufficiency, stage 3 (moderate) (HCC) Thyroid cancer (HCC) Malignant neoplasm of thyroid gland Rheumatoid arthritis involving multiple sites with positive rheumatoid factor (HCC) Psoriasis Other psoriasis Osteopenia, unspecified location Constipation, unspecified constipation type Postoperative hypothyroidism Postsurgical hypothyroidism S/P total knee arthroplasty, right- Primary documented in this encounter [facility] note* Diagnosis Pre-operative examination- Primary Preoperative examination, unspecified Primary fibromyalgia syndrome Mylagia and myositis, unspecified Gastroesophageal reflux disease, unspecified whether esophagitis present Chronic kidney insufficiency, stage 3 (moderate) (HCC) Thyroid cancer (HCC) Malignant neoplasm of thyroid gland Rheumatoid arthritis involving multiple sites with positive rheumatoid factor (HCC) Psoriasis Other psoriasis Osteopenia, unspecified location Constipation, unspecified constipation type Postoperative hypothyroidism Postsurgical hypothyroidism S/P total knee arthroplasty, right documented in this encounter [facility] note* Diagnosis Pre-operative examination- Primary Preoperative examination, unspecified Primary fibromyalgia syndrome Mylagia and myositis, unspecified Gastroesophageal reflux disease, unspecified whether esophagitis present Chronic kidney insufficiency, stage 3 (moderate) (HCC) Thyroid cancer (HCC) Malignant neoplasm of thyroid gland Rheumatoid arthritis involving multiple sites with positive rheumatoid factor (HCC) Psoriasis Other psoriasis Osteopenia, unspecified location Constipation, unspecified constipation type Postoperative hypothyroidism Postsurgical hypothyroidism S/P total knee arthroplasty, right documented in this encounter [facility] note* Diagnosis Pre-operative examination- Primary Preoperative examination, unspecified Primary fibromyalgia syndrome Mylagia and myositis, unspecified Gastroesophageal reflux disease, unspecified whether esophagitis present Chronic kidney insufficiency, stage 3 (moderate) (HCC) Thyroid cancer (HCC) Malignant neoplasm of thyroid gland Rheumatoid arthritis involving multiple sites with positive rheumatoid factor (HCC) Psoriasis Other psoriasis Osteopenia, unspecified location Constipation, unspecified constipation type Postoperative hypothyroidism Postsurgical hypothyroidism S/P total knee arthroplasty, right documented in this encounter [facility] note* Diagnosis Pre-operative examination- Primary Preoperative examination, unspecified Primary fibromyalgia syndrome Mylagia and myositis, unspecified Gastroesophageal reflux disease, unspecified whether esophagitis present Chronic kidney insufficiency, stage 3 (moderate) (HCC) Thyroid cancer (HCC) Malignant neoplasm of thyroid gland Rheumatoid arthritis involving multiple sites with positive rheumatoid factor (HCC) Psoriasis Other psoriasis Osteopenia, unspecified location Constipation, unspecified constipation type Postoperative hypothyroidism Postsurgical hypothyroidism S/P total knee arthroplasty, right documented in this encounter [facility] note* Diagnosis Pre-operative examination- Primary Preoperative examination, unspecified Primary fibromyalgia syndrome Mylagia and myositis, unspecified Gastroesophageal reflux disease, unspecified whether esophagitis present Chronic kidney insufficiency, stage 3 (moderate) (HCC) Thyroid cancer (HCC) Malignant neoplasm of thyroid gland Rheumatoid arthritis involving multiple sites with positive rheumatoid factor (HCC) Psoriasis Other psoriasis Osteopenia, unspecified location Constipation, unspecified constipation type Postoperative hypothyroidism Postsurgical hypothyroidism S/P total knee arthroplasty, right- Primary documented in this encounter [facility] note* Diagnosis Pre-operative examination- Primary Preoperative examination, unspecified Primary fibromyalgia syndrome Mylagia and myositis, unspecified Gastroesophageal reflux disease, unspecified whether esophagitis present Chronic kidney insufficiency, stage 3 (moderate) (HCC) Thyroid cancer (HCC) Malignant neoplasm of thyroid gland Rheumatoid arthritis involving multiple sites with positive rheumatoid factor (HCC) Psoriasis Other psoriasis Osteopenia, unspecified location Constipation, unspecified constipation type Postoperative hypothyroidism Postsurgical hypothyroidism Calculus of gallbladder without cholecystitis without obstruction- Primary Calculus of gallbladder without mention of cholecystitis or obstruction Upper abdominal pain Abdominal pain, other specified site Nausea Nausea alone Splenic lesion Disease of spleen, unspecified Abnormal findings on diagnostic imaging of body structures [facility]* Diagnosis Pre-operative examination- Primary Preoperative examination, unspecified Primary fibromyalgia syndrome Mylagia and myositis, unspecified Gastroesophageal reflux disease, unspecified whether esophagitis present Chronic kidney insufficiency, stage 3 (moderate) (HCC) Thyroid cancer (HCC) Malignant neoplasm of thyroid gland Rheumatoid arthritis involving multiple sites with positive rheumatoid factor (HCC) Psoriasis Other psoriasis Osteopenia, unspecified location Constipation, unspecified constipation type Postoperative hypothyroidism Postsurgical hypothyroidism Primary osteoarthritis of left knee- Primary Primary localized osteoarthrosis, lower leg Primary osteoarthritis of left knee Primary localized osteoarthrosis, lower leg documented in this encounter [facility] note* Diagnosis Pre-operative examination- Primary Preoperative examination, unspecified Primary fibromyalgia syndrome Mylagia and myositis, unspecified Gastroesophageal reflux disease, unspecified whether esophagitis present Chronic kidney insufficiency, stage 3 (moderate) (HCC) Thyroid cancer (HCC) Malignant neoplasm of thyroid gland Rheumatoid arthritis involving multiple sites with positive rheumatoid factor (HCC) Psoriasis Other psoriasis Osteopenia, unspecified location Constipation, unspecified constipation type Postoperative hypothyroidism Postsurgical hypothyroidism Primary osteoarthritis of left knee- Primary Primary localized osteoarthrosis, lower leg Preoperative examination Preoperative examination, unspecified Primary osteoarthritis of left knee Primary localized osteoarthrosis, lower leg documented in this encounter [facility] note* Diagnosis Pre-operative examination- Primary Preoperative examination, unspecified Primary fibromyalgia syndrome Mylagia and myositis, unspecified Gastroesophageal reflux disease, unspecified whether esophagitis present Chronic kidney insufficiency, stage 3 (moderate) (HCC) Thyroid cancer (HCC) Malignant neoplasm of thyroid gland Rheumatoid arthritis involving multiple sites with positive rheumatoid factor (HCC) Psoriasis Other psoriasis Osteopenia, unspecified location Constipation, unspecified constipation type Postoperative hypothyroidism Postsurgical hypothyroidism Calculus of gallbladder without cholecystitis without obstruction Calculus of gallbladder without mention of cholecystitis or obstruction Upper abdominal pain Abdominal pain, other specified site Primary osteoarthritis of left knee Primary localized osteoarthrosis, lower leg [facility] Diagnosis Pre-operative examination- Primary Preoperative examination, unspecified Primary fibromyalgia syndrome Mylagia and myositis, unspecified Gastroesophageal reflux disease, unspecified whether esophagitis present Chronic kidney insufficiency, stage 3 (moderate) (HCC) Thyroid cancer (HCC) Malignant neoplasm of thyroid gland Rheumatoid arthritis involving multiple sites with positive rheumatoid factor (HCC) Psoriasis Other psoriasis Osteopenia, unspecified location Constipation, unspecified constipation type Postoperative hypothyroidism Postsurgical hypothyroidism Calculus of gallbladder without cholecystitis without obstruction Calculus of gallbladder without mention of cholecystitis or obstruction Upper abdominal pain Abdominal pain, other specified site Calculus of gallbladder without cholecystitis without obstruction Calculus of gallbladder without mention of cholecystitis or obstruction Upper abdominal pain Abdominal pain, other specified site Primary osteoarthritis of left knee Primary localized osteoarthrosis, lower leg documented in this encounter [facility] note* Diagnosis Pre-operative examination- Primary Preoperative examination, unspecified Primary fibromyalgia syndrome Mylagia and myositis, unspecified Gastroesophageal reflux disease, unspecified whether esophagitis present Chronic kidney insufficiency, stage 3 (moderate) (HCC) Thyroid cancer (HCC) Malignant neoplasm of thyroid gland Rheumatoid arthritis involving multiple sites with positive rheumatoid factor (HCC) Psoriasis Other psoriasis Osteopenia, unspecified location Constipation, unspecified constipation type Postoperative hypothyroidism Postsurgical hypothyroidism Neuropathy- Primary Mononeuritis of unspecified site Orthostatic dizziness Calculus of gallbladder without cholecystitis without obstruction Calculus of gallbladder without mention of cholecystitis or obstruction Upper abdominal pain Abdominal pain, other specified site Primary osteoarthritis of left knee Primary localized osteoarthrosis, lower leg documented in this encounter [facility] note* Diagnosis Pre-operative examination- Primary Preoperative examination, unspecified Primary fibromyalgia syndrome Mylagia and myositis, unspecified Gastroesophageal reflux disease, unspecified whether esophagitis present Chronic kidney insufficiency, stage 3 (moderate) (HCC) Thyroid cancer (HCC) Malignant neoplasm of thyroid gland Rheumatoid arthritis involving multiple sites with positive rheumatoid factor (HCC) Psoriasis Other psoriasis Osteopenia, unspecified location Constipation, unspecified constipation type Postoperative hypothyroidism Postsurgical hypothyroidism Preop examination- Primary Preoperative examination, unspecified History of weight loss Gastroesophageal reflux disease, unspecified whether esophagitis present Postoperative hypothyroidism Postsurgical hypothyroidism History of recent steroid use 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) Sjogren's syndrome, with unspecified organ involvement (HCC) Dental fracture Neuropathy Mononeuritis of unspecified site Orthostatic dizziness Calculus of gallbladder without cholecystitis without obstruction Calculus of gallbladder without mention of cholecystitis or obstruction Upper abdominal pain Abdominal pain, other specified site Primary osteoarthritis of left knee Primary localized osteoarthrosis, lower leg documented in this encounter [facility] note* Diagnosis Pre-operative examination- Primary Preoperative examination, unspecified Primary fibromyalgia syndrome Mylagia and myositis, unspecified Gastroesophageal reflux disease, unspecified whether esophagitis present Chronic kidney insufficiency, stage 3 (moderate) (HCC) Thyroid cancer (HCC) Malignant neoplasm of thyroid gland Rheumatoid arthritis involving multiple sites with positive rheumatoid factor (HCC) Psoriasis Other psoriasis Osteopenia, unspecified location Constipation, unspecified constipation type Postoperative hypothyroidism Postsurgical hypothyroidism Primary osteoarthritis of left knee Primary localized osteoarthrosis, lower leg Preoperative examination Preoperative examination, unspecified Calculus of gallbladder without cholecystitis without obstruction Calculus of gallbladder without mention of cholecystitis or obstruction Upper abdominal pain Abdominal pain, other specified site Primary osteoarthritis of left knee Primary localized osteoarthrosis, lower leg documented in this encounter [facility] note* Diagnosis Pre-operative examination- Primary Preoperative examination, unspecified Primary fibromyalgia syndrome Mylagia and myositis, unspecified Gastroesophageal reflux disease, unspecified whether esophagitis present Chronic kidney insufficiency, stage 3 (moderate) (HCC) Thyroid cancer (HCC) Malignant neoplasm of thyroid gland Rheumatoid arthritis involving multiple sites with positive rheumatoid factor (HCC) Psoriasis Other psoriasis Osteopenia, unspecified location Constipation, unspecified constipation type Postoperative hypothyroidism Postsurgical hypothyroidism Actinic keratosis- Primary Primary osteoarthritis of left knee Primary localized osteoarthrosis, lower leg documented in this encounter [facility] note* Diagnosis Pre-operative examination- Primary Preoperative examination, unspecified Primary fibromyalgia syndrome Mylagia and myositis, unspecified Gastroesophageal reflux disease, unspecified whether esophagitis present Chronic kidney insufficiency, stage 3 (moderate) (HCC) Thyroid cancer (HCC) Malignant neoplasm of thyroid gland Rheumatoid arthritis involving multiple sites with positive rheumatoid factor (HCC) Psoriasis Other psoriasis Osteopenia, unspecified location Constipation, unspecified constipation type Postoperative hypothyroidism Postsurgical hypothyroidism S/P total knee arthroplasty, left- Primary S/P total knee arthroplasty, right Primary osteoarthritis of left knee Primary localized osteoarthrosis, lower leg documented in this encounter [facility] note* Diagnosis Pre-operative examination- Primary Preoperative examination, unspecified Primary fibromyalgia syndrome Mylagia and myositis, unspecified Gastroesophageal reflux disease, unspecified whether esophagitis present Chronic kidney insufficiency, stage 3 (moderate) (HCC) Thyroid cancer (HCC) Malignant neoplasm of thyroid gland Rheumatoid arthritis involving multiple sites with positive rheumatoid factor (HCC) Psoriasis Other psoriasis Osteopenia, unspecified location Constipation, unspecified constipation type Postoperative hypothyroidism Postsurgical hypothyroidism Calculus of gallbladder without cholecystitis without obstruction- Primary Calculus of gallbladder without mention of cholecystitis or obstruction Primary osteoarthritis of left knee Primary localized osteoarthrosis, lower leg documented in this encounter [facility] note* Diagnosis Pre-operative examination- Primary Preoperative examination, unspecified Primary fibromyalgia syndrome Mylagia and myositis, unspecified Gastroesophageal reflux disease, unspecified whether esophagitis present Chronic kidney insufficiency, stage 3 (moderate) (HCC) Thyroid cancer (HCC) Malignant neoplasm of thyroid gland Rheumatoid arthritis involving multiple sites with positive rheumatoid factor (HCC) Psoriasis Other psoriasis Osteopenia, unspecified location Constipation, unspecified constipation type Postoperative hypothyroidism Postsurgical hypothyroidism Overweight (BMI 25.0-29.9)- Primary Overweight Sciatica, right side Postoperative hypothyroidism Postsurgical hypothyroidism Chronic kidney insufficiency, stage 3 (moderate) (HCC) Primary osteoarthritis of both knees Primary localized osteoarthrosis, lower leg Primary osteoarthritis of left knee Primary localized osteoarthrosis, lower leg documented in this encounter [facility] note* Diagnosis Pre-operative examination- Primary Preoperative examination, unspecified Primary fibromyalgia syndrome Mylagia and myositis, unspecified Gastroesophageal reflux disease, unspecified whether esophagitis present Chronic kidney insufficiency, stage 3 (moderate) (HCC) Thyroid cancer (HCC) Malignant neoplasm of thyroid gland Rheumatoid arthritis involving multiple sites with positive rheumatoid factor (HCC) Psoriasis Other psoriasis Osteopenia, unspecified location Constipation, unspecified constipation type Postoperative hypothyroidism Postsurgical hypothyroidism Status post left knee replacement- Primary documented in this encounter [facility] note* Diagnosis Pre-operative examination- Primary Preoperative examination, unspecified Primary fibromyalgia syndrome Mylagia and myositis, unspecified Gastroesophageal reflux disease, unspecified whether esophagitis present Chronic kidney insufficiency, stage 3 (moderate) (HCC) Thyroid cancer (HCC) Malignant neoplasm of thyroid gland Rheumatoid arthritis involving multiple sites with positive rheumatoid factor (HCC) Psoriasis Other psoriasis Osteopenia, unspecified location Constipation, unspecified constipation type Postoperative hypothyroidism Postsurgical hypothyroidism Bilateral primary osteoarthritis of knee documented in this encounter [facility] note* Diagnosis Pre-operative examination- Primary Preoperative examination, unspecified Primary fibromyalgia syndrome Mylagia and myositis, unspecified Gastroesophageal reflux disease, unspecified whether esophagitis present Chronic kidney insufficiency, stage 3 (moderate) (HCC) Thyroid cancer (HCC) Malignant neoplasm of thyroid gland Rheumatoid arthritis involving multiple sites with positive rheumatoid factor (HCC) Psoriasis Other psoriasis Osteopenia, unspecified location Constipation, unspecified constipation type Postoperative hypothyroidism Postsurgical hypothyroidism Status post left knee replacement- Primary documented in this encounter [facility] note* Diagnosis Pre-operative examination- Primary Preoperative examination, unspecified Primary fibromyalgia syndrome Mylagia and myositis, unspecified Gastroesophageal reflux disease, unspecified whether esophagitis present Chronic kidney insufficiency, stage 3 (moderate) (HCC) Thyroid cancer (HCC) Malignant neoplasm of thyroid gland Rheumatoid arthritis involving multiple sites with positive rheumatoid factor (HCC) Psoriasis Other psoriasis Osteopenia, unspecified location Constipation, unspecified constipation type Postoperative hypothyroidism Postsurgical hypothyroidism Status post left knee replacement documented in this encounter [facility] note* Diagnosis Pre-operative examination- Primary Preoperative examination, unspecified Primary fibromyalgia syndrome Mylagia and myositis, unspecified Gastroesophageal reflux disease, unspecified whether esophagitis present Chronic kidney insufficiency, stage 3 (moderate) (HCC) Thyroid cancer (HCC) Malignant neoplasm of thyroid gland Rheumatoid arthritis involving multiple sites with positive rheumatoid factor (HCC) Psoriasis Other psoriasis Osteopenia, unspecified location Constipation, unspecified constipation type Postoperative hypothyroidism Postsurgical hypothyroidism S/P total knee arthroplasty, left- Primary documented in this encounter [facility] note* Diagnosis Pre-operative examination- Primary Preoperative examination, unspecified Primary fibromyalgia syndrome Mylagia and myositis, unspecified Gastroesophageal reflux disease, unspecified whether esophagitis present Chronic kidney insufficiency, stage 3 (moderate) (HCC) Thyroid cancer (HCC) Malignant neoplasm of thyroid gland Rheumatoid arthritis involving multiple sites with positive rheumatoid factor (HCC) Psoriasis Other psoriasis Osteopenia, unspecified location Constipation, unspecified constipation type Postoperative hypothyroidism Postsurgical hypothyroidism Dizziness- Primary Dizziness and giddiness Nausea and vomiting, unspecified vomiting type documented in this encounter [facility] note* Diagnosis Pre-operative examination- Primary Preoperative examination, unspecified Primary fibromyalgia syndrome Mylagia and myositis, unspecified Gastroesophageal reflux disease, unspecified whether esophagitis present Chronic kidney insufficiency, stage 3 (moderate) (HCC) Thyroid cancer (HCC) Malignant neoplasm of thyroid gland Rheumatoid arthritis involving multiple sites with positive rheumatoid factor (HCC) Psoriasis Other psoriasis Osteopenia, unspecified location Constipation, unspecified constipation type Postoperative hypothyroidism Postsurgical hypothyroidism Status post left knee replacement- Primary documented in this encounter [facility] note* Diagnosis Pre-operative examination- Primary Preoperative examination, unspecified Primary fibromyalgia syndrome Mylagia and myositis, unspecified Gastroesophageal reflux disease, unspecified whether esophagitis present Chronic kidney insufficiency, stage 3 (moderate) (HCC) Thyroid cancer (HCC) Malignant neoplasm of thyroid gland Rheumatoid arthritis involving multiple sites with positive rheumatoid factor (HCC) Psoriasis Other psoriasis Osteopenia, unspecified location Constipation, unspecified constipation type Postoperative hypothyroidism Postsurgical hypothyroidism Encounter for screening mammogram for breast cancer documented in this encounter [facility] note* Diagnosis Pre-operative examination- Primary Preoperative examination, unspecified Primary fibromyalgia syndrome Mylagia and myositis, unspecified Gastroesophageal reflux disease, unspecified whether esophagitis present Chronic kidney insufficiency, stage 3 (moderate) (HCC) Thyroid cancer (HCC) Malignant neoplasm of thyroid gland Rheumatoid arthritis involving multiple sites with positive rheumatoid factor (HCC) Psoriasis Other psoriasis Osteopenia, unspecified location Constipation, unspecified constipation type Postoperative hypothyroidism Postsurgical hypothyroidism Seropositive rheumatoid arthritis (HCC) Rheumatoid arthritis documented in this encounter [facility] note* Diagnosis Pre-operative examination- Primary Preoperative examination, unspecified Primary fibromyalgia syndrome Mylagia and myositis, unspecified Gastroesophageal reflux disease, unspecified whether esophagitis present Chronic kidney insufficiency, stage 3 (moderate) (HCC) Thyroid cancer (HCC) Malignant neoplasm of thyroid gland Rheumatoid arthritis involving multiple sites with positive rheumatoid factor (HCC) Psoriasis Other psoriasis Osteopenia, unspecified location Constipation, unspecified constipation type Postoperative hypothyroidism Postsurgical hypothyroidism S/P total knee arthroplasty, left- Primary documented in this encounter [facility] note* Diagnosis Pre-operative examination- Primary Preoperative examination, unspecified Primary fibromyalgia syndrome Mylagia and myositis, unspecified Gastroesophageal reflux disease, unspecified whether esophagitis present Chronic kidney insufficiency, stage 3 (moderate) (HCC) Thyroid cancer (HCC) Malignant neoplasm of thyroid gland Rheumatoid arthritis involving multiple sites with positive rheumatoid factor (HCC) Psoriasis Other psoriasis Osteopenia, unspecified location Constipation, unspecified constipation type Postoperative hypothyroidism Postsurgical hypothyroidism S/P total knee arthroplasty, left- Primary documented in this encounter [facility] note* Diagnosis Pre-operative examination- Primary Preoperative examination, unspecified Primary fibromyalgia syndrome Mylagia and myositis, unspecified Gastroesophageal reflux disease, unspecified whether esophagitis present Chronic kidney insufficiency, stage 3 (moderate) (HCC) Thyroid cancer (HCC) Malignant neoplasm of thyroid gland Rheumatoid arthritis involving multiple sites with positive rheumatoid factor (HCC) Psoriasis Other psoriasis Osteopenia, unspecified location Constipation, unspecified constipation type Postoperative hypothyroidism Postsurgical hypothyroidism Status post left knee replacement- Primary documented in this encounter [facility] note* Diagnosis Pre-operative examination- Primary Preoperative examination, unspecified Primary fibromyalgia syndrome Mylagia and myositis, unspecified Gastroesophageal reflux disease, unspecified whether esophagitis present Chronic kidney insufficiency, stage 3 (moderate) (HCC) Thyroid cancer (HCC) Malignant neoplasm of thyroid gland Rheumatoid arthritis involving multiple sites with positive rheumatoid factor (HCC) Psoriasis Other psoriasis Osteopenia, unspecified location Constipation, unspecified constipation type Postoperative hypothyroidism Postsurgical hypothyroidism Thyroid cancer (HCC) Malignant neoplasm of thyroid gland documented in this encounter [facility] note* Diagnosis Pre-operative examination- Primary Preoperative examination, unspecified Primary fibromyalgia syndrome Mylagia and myositis, unspecified Gastroesophageal reflux disease, unspecified whether esophagitis present Chronic kidney insufficiency, stage 3 (moderate) (HCC) Thyroid cancer (HCC) Malignant neoplasm of thyroid gland Rheumatoid arthritis involving multiple sites with positive rheumatoid factor (HCC) Psoriasis Other psoriasis Osteopenia, unspecified location Constipation, unspecified constipation type Postoperative hypothyroidism Postsurgical hypothyroidism S/P total knee arthroplasty, left- Primary documented in this encounter [facility] note* Diagnosis Pre-operative examination- Primary Preoperative examination, unspecified Primary fibromyalgia syndrome Mylagia and myositis, unspecified Gastroesophageal reflux disease, unspecified whether esophagitis present Chronic kidney insufficiency, stage 3 (moderate) (HCC) Thyroid cancer (HCC) Malignant neoplasm of thyroid gland Rheumatoid arthritis involving multiple sites with positive rheumatoid factor (HCC) Psoriasis Other psoriasis Osteopenia, unspecified location Constipation, unspecified constipation type Postoperative hypothyroidism Postsurgical hypothyroidism Thyroid cancer (HCC)- Primary Malignant neoplasm of thyroid gland Post-surgical hypothyroidism Postsurgical hypothyroidism documented in this encounter [facility] note* Diagnosis Pre-operative examination- Primary Preoperative examination, unspecified Primary fibromyalgia syndrome Mylagia and myositis, unspecified Gastroesophageal reflux disease, unspecified whether esophagitis present Chronic kidney insufficiency, stage 3 (moderate) (HCC) Thyroid cancer (HCC) Malignant neoplasm of thyroid gland Rheumatoid arthritis involving multiple sites with positive rheumatoid factor (HCC) Psoriasis Other psoriasis Osteopenia, unspecified location Constipation, unspecified constipation type Postoperative hypothyroidism Postsurgical hypothyroidism S/P total knee arthroplasty, left- Primary documented in this encounter [facility] note* Diagnosis Pre-operative examination- Primary Preoperative examination, unspecified Primary fibromyalgia syndrome Mylagia and myositis, unspecified Gastroesophageal reflux disease, unspecified whether esophagitis present Chronic kidney insufficiency, stage 3 (moderate) (HCC) Thyroid cancer (HCC) Malignant neoplasm of thyroid gland Rheumatoid arthritis involving multiple sites with positive rheumatoid factor (HCC) Psoriasis Other psoriasis Osteopenia, unspecified location Constipation, unspecified constipation type Postoperative hypothyroidism Postsurgical hypothyroidism Overweight (BMI 25.0-29.9) Overweight [facility] Diagnosis Pre-operative examination- Primary Preoperative examination, unspecified Primary fibromyalgia syndrome Mylagia and myositis, unspecified Gastroesophageal reflux disease, unspecified whether esophagitis present Chronic kidney insufficiency, stage 3 (moderate) (HCC) Thyroid cancer (HCC) Malignant neoplasm of thyroid gland Rheumatoid arthritis involving multiple sites with positive rheumatoid factor (HCC) Psoriasis Other psoriasis Osteopenia, unspecified location Constipation, unspecified constipation type Postoperative hypothyroidism Postsurgical hypothyroidism S/P total knee arthroplasty, left- Primary documented in this encounter [facility] Discharge instructions Additional Instructions Your CT scan here today did not show anything surgical it showed diverticulosis no evidence of diverticulitis. Your blood work did not show anything acute either. Continue supportive care start bland diet advance as tolerated use prescriptions as prescribed. Return with worsening symptoms or other concerns.[facility] Work Phone: Patient's home Plan of care note* Visit Details Visit Type -PT SOC Discipline -Physical Therapy Problems Problem Description Start Date Status Goals Interve ntions Medication Education Disciplines: Skilled Services 08/25/2024 Resolved on 08/25/2024 1 goal linked to scheduled/document ed intervention 1 goal intervention scheduled/document ed in this visit Mental Health Disciplines: Skilled Services 08/25/2024 Active 1 goal linked to scheduled/document ed intervention 1 goal intervention scheduled/document ed in this visit Physician Specific Parameters Disciplines: Skilled Services 08/25/2024 Active 1 goal linked to scheduled/document ed intervention 1 goal intervention scheduled/document ed in this visit Risk for Falls Disciplines: Skilled Services 08/25/2024 Active 1 goal linked to scheduled/document ed intervention 1 goal intervention scheduled/document ed in this visit Pain Disciplines: Skilled Services 08/25/2024 Active 1 goal linked to scheduled/document ed intervention 1 goal intervention scheduled/document ed in this visit High Risk Medications Disciplines: Skilled Services 08/25/2024 Active 1 goal linked to scheduled/document ed intervention 3 goal interventions scheduled/document ed in this visit PT Impaired muscle performance and/or ROM Disciplines: PT 08/25/2024 Active 1 goal linked to scheduled/document ed intervention 1 goal intervention scheduled/document ed in this visit PT Impaired mobility Disciplines: PT 08/25/2024 Active 2 goals linked to scheduled/document ed interventions 2 goal interventions scheduled/document ed in this visit PT Impaired gait Disciplines: PT 08/25/2024 Active 1 goal linked to scheduled/document ed intervention 1 goal intervention scheduled/document ed in this visit PT Orthopedic Condition Disciplines: PT 08/25/2024 Active 1 goal linked to scheduled/document ed intervention 3 goal interventions scheduled/document ed in this visit PT Learning Assessment Disciplines: PT 08/25/2024 Active 1 goal linked to scheduled/document ed intervention 1 goal intervention scheduled/document ed in this visit Discharge Disciplines: Skilled Services 08/25/2024 Active 1 goal linked to scheduled/document ed intervention 2 goal interventions scheduled/document ed in this visit Goals Goal Associated Problem Outcome Goal Met? Visit Notes Patient/caregiver will demonstrate ability to obtain, store, identify and administer ordered medications, keep accurate medication list in home, and adhere to medication schedule Description: Patient/caregiver will demonstrate ability to obtain, store, identify and administer ordered medications, keep accurate medication list in home, and adhere to medication schedule by 08/25/24. Medication Education Completed Yes goal met Improved management of mental health condition(s) Description: Patient/caregiver will teach back mental health symptom identification and management techniques by 09/10/24. Mental Health No Patient to maintain parameters within physician-specified ranges throughout certification period Physician Specific Parameters No Manage Risk for falls Description: Patient/caregiver will verbalize knowledge of individualized fall prevention strategies by 09/10/24. Risk for Falls No Manage Pain Description: Patient/caregiver will verbalize knowledge and understanding of appropriate techniques to control pain, including pain medication and non-pharmacological techniques. Patient will verbalize or demonstrate an acceptable level of pain as evidenced by a pain score of 2/10 and improvement in ability to perform activities of daily living to be achieved by 09/10/24. Pain No Patient/caregiver will teach back high risk medication side effect and precaution education Description: STG Patient/caregiver will verbalize understanding of high risk medication side effects and precautions to be achieved by 08/25/24. LTG Patient/caregiver will continue to verbalize understanding of high risk medication side effects and precautions throughout certification period. High Risk Medications No Improved Muscle Performance and/or ROM Description: LTG: Patient will demonstrate improved muscle performance to meet functional goals as evidenced by ability to tolerate 8 min or greater activity, to be achieved by 09/10/24 LTG: Patient and/or caregiver will verbalize/demonstrate independence with home exercise program, to improve functional mobility, to be achieved by 09/10/24. LTG: Patient will demonstrate improved right knee active range of motion to 3-90 degrees, to meet functional goals, to be achieved by 09/10/24. PT Impaired muscle performance and/or ROM No Improved Transfers Description: LTG: Patient will demonstrate safe transfers to/from bed, chair and toilet independently, to be achieved by 09/10/24. LTG: Patient will demonstrate safe transfers to/from shower/tub and car with contact guard assistance, to be achieved by 09/10/24. PT Impaired mobility No Improved Bed Mobility Description: LTG: Patient will demonstrate improved bed mobility, ability to position self and supine <> sit independently to be achieved by 09/10/24. PT Impaired mobility No Improved Gait Description: LTG: Patient will demonstrate improved gait ability as evidenced by ambulation 150 feet with front wheeled walker and progressing to cane as appropriate independently with AD, to return to safe household ambulation, in order to access rooms, leave home, to be achieved by 09/10/24 PT Impaired gait No Manage Orthopedic Condition Description: Improve patient and/or caregiver understanding of post surgical and/or non-surgical orthopedic intervention management as evidenced by patient and/or caregiver able to verbalize, demonstrate, and teach back instruction, to be achieved by 09/10/24. PT Orthopedic Condition No Demonstrate understanding of education Description: STG: Patient will receive instruction on pain/edema mgmt, fall prevention/home safety, s/s of infection and when to call the MD, DVT prophylaxis, precautions and restrictions as applicable, and home exercises upon PT eval, to be achieved by 08/25/24 LTG: Patient and/or caregiver will understand educational instruction to be achieved by 09/10/24. PT Learning Assessment No Manage discharge planning Description: Patient/caregiver will verbalize understanding of ongoing discharge plan provided related to disease management, arrangements for outpatient and/or community services, obtaining medications, supplies, and DME, as needed throughout certification period. Discharge No Interventions Intervention Associated Problem/Goal Status Variance Visit Notes Medication Education Description: Evaluate/instruct patient/caregiver on obtaining, storing, identifying and administering ordered medications as well as keeping accurate medication list in the home and adhereing to medication schedule Problem:Medication Education Goal:Patient/caregive r will demonstrate ability to obtain, store, identify and administer ordered medications, keep accurate medication list in home, and adhere to medication schedule Completed Patient instructed on importance of keeping accurate medication list in home, need to take up-to-date medication list to all medical provider appointments and adhering to medication schedule. Instruct on coping strategies Problem:Mental Health Goal:Improved management of mental health condition(s) Completed Advised to report concerns to home care staff or provider SPO2 Description: Notify Dr. Vasquez if pulse ox is <92% at rest. Problem:Physician Specific Parameters Goal:Patient to maintain parameters within physician-specified ranges throughout certification period Completed Instruct on individual fall risk factors and strategies to prevent falls and injuries caused by falls. Problem:Risk for Falls Goal:Manage Risk for falls Completed PT: Patient instructed on Eliminating Environmental Hazards: Keep pathways clear and Keep pets out of pathways Managing Impaired Functional Mobility: Use assistive device(s): front wheeled walker and Caregiver to provide assist with: Ambulation, Steps, Transfers and ADL/IADLs Managing Pain Instruct on pain and instruct on strategies to control pain Problem:Pain Goal:Manage Pain Completed patient instructed on techniques to control pain including Pharmacological measures and Non-Pharmacological measures; rest, positioning/elevation, mobility/therapeutic exercise, breathing/relaxation, use of DME/assistive devices and use of thermal modalities, apply ice to affected area for the following prescribed frequency: 20 min on / off. Opioids- educated on high risk medication Problem:High Risk Medications Goal:Patient/caregive r will teach back high risk medication side effect and precaution education Completed patient educated on taking medication(s) as prescribed by provider. Do not stop medication or alter doses without speaking with your provider. Discuss medication effectiveness or side effect concerns with your provider and home care team. Only take opioids as prescribed, do not share your medications, and take proper precautions in storing and properly disposing of opioids once no longer needed. Possible side effects of opioid medication including sedation, decreased rate of breathing, and constipation. Report over sedation to prescribing provider and practice deep breathing techniques every hour while awake. Prevent constipation by increasing water and fiber intake, increasing activity as tolerated, and use stool softener(s) as prescribed. Antiplatelet- educated on high risk medication Problem:High Risk Medications Goal:Patient/caregive r will teach back high risk medication side effect and precaution education Completed patient educated on taking medication(s) as prescribed by provider. Do not stop medication or alter doses without speaking with your provider. Discuss medication effectiveness or side effect concerns with your provider and home care team. Discuss all medications you are taking, even nwdm-[id number] medicines, with your provider and pharmacist since many drugs can interact with antiplatelet medications. If you forget to take a dose, DO NOT take a double dose. Take the missed dose as soon as possible on the same day. DO NOT take a double dose the next day to make up for the missed dose. Watch for signs of abnormal or excessive bleeding and bruising (refer to Bleeding Precautions education). Call your health care provider right away if you suspect something is wrong. Antibiotic- educated on high risk medication Problem:High Risk Medications Goal:Patient/caregive r will teach back high risk medication side effect and precaution education Completed patient educated on taking medication(s) as prescribed by provider. Do not stop medication or alter doses without speaking with your provider. Discuss medication effectiveness or side effect concerns with your provider and home care team. Take the full dispensed amount even if you start feeling better, as bacteria can become resistant to antibiotic treatment if you do not finish your prescription. Common side effects are upset stomach and diarrhea. Take your antibiotics with food unless otherwise indicated to help with indigestion. Taking an rcom-hjy-[id number] probiotic or eating yogurt with live and active cultures three times a day can help prevent antibiotic-associated diarrhea. Call your provider immediately if you develop rashes or hives as this could be a delayed allergic reaction. Seek emergency treatment if you develop severe allergic reaction symptoms such as mouth or tongue swelling. Physical Therapy Therapeutic Exercises Problem:PT Impaired muscle performance and/or ROM Goal:Improved Muscle Performance and/or ROM Completed Patient and caregiver instructed on strengthening and range of motion exercises including BLE ankle pumps, quad set, glut set x10; RLE SAQ, hip abd, heelslides x10 ea with verbal, tactile, visual and written cues for safety and technique. patient and caregiver instructed to perform home exercise program 2-3x a day which included all above ex's as tolerated. Ankle pumps hourly, walking every 1-2 hours with walker and assistance. Handouts issued. HEP reviewed. Performed within tolerable ranges. Physical Therapy Transfer Training Problem:PT Impaired mobility Goal:Improved Transfers Completed Transfer training and instruction to patient on safe transfers to and from bed with minimal assist and verbal, tactile and visual cues for hand, foot, walker placement; forward weight shifting; centering and eccentric control to sit; avoid pulling on walker. Advised on toilet riser. Physical Therapy Bed Mobility Training Problem:PT Impaired mobility Goal:Improved Bed Mobility Completed Bed mobility training and instruction to patient, including rolling, supine<>sit and repositioning self with minimal assist and tactile, visual and verbal cues for initial positioning, use of UE's to scoot into bed to avoid strain to LE's; pivoting. Physical Therapy Gait Training Problem:PT Impaired gait Goal:Improved Gait Completed Gait training and instruction to patient on safe ambulation with front wheeled walker for 5 feet with contact guard assist, with tactile, visual and verbal cues for corrections of gait deviations including walker placement, posture, general safety around doorways, threshholds, and furniture. Pt having nausea when standing- only willing/able to walk 5 ft around bed. Instruct on orthopedic precautions and weight bearing restrictions Description: Orthopedic precautions including right total knee: no knee flexed over pillow at rest. Weight bearing restrictions include: WBAT of involved extremity. Problem:PT Orthopedic Condition Goal:Manage Orthopedic Condition Completed patient instructed on orthopedic precautions and weight bearing restrictions. Instruct on management of edema Problem:PT Orthopedic Condition Goal:Manage Orthopedic Condition Completed Instruct patient on management of edema including elevation of RLE above the level of the heart and ice. Instruct on self-management of post surgical and/or non-surgical orthopedic intervention Problem:PT Orthopedic Condition Goal:Manage Orthopedic Condition Completed patient instructed on managagement of orthopedic condition, staying well hydrated, signs and symptoms of infection, signs and symptoms of DVT/PE and instructed on when to call provider. Instruct and educate on knowledge deficits Problem:PT Learning Assessment Goal:Demonstrate understanding of education Completed patient verbalize and/or demonstrate understanding of physical therapy education including orthopedic condition management, weight bearing precautions, surgical precautions, pain management, fall prevention strategies, home safety, integumentary and incision/wound care management, infection control precautions, functional activity and home exercise program. Education methods include: verbal cues, tactile cues, written instructions, visual cues and teach back. Further reinforcement of education required to improve knowledge and compliance with all above Instruct on ongoing discharge plan Problem:Discharge Goal:Manage discharge planning Completed Ongoing Discharge plan: Discharge plan discussed with patient including frequency and duration for home PT and plan for transition to: outpatient therapy. Instruct on importance of follow-up appts and continued monitoring with medical provider &/or chronic care clinic Problem:Discharge Goal:Manage discharge planning Completed Education provided on importance of compliance with follow-up appointment(s). Recommendations: other ortho follow up- pt aware of date [facility] Visit Details Visit Type -PEN TESTER ROUTINE Discipline -Physical Therapy Problems Problem Description Start Date Status Goals Interve ntions Sepsis Disciplines: Skilled Services 08/25/2024 Active 1 goal linked to scheduled/document ed intervention 1 goal intervention scheduled/document ed in this visit Physician Specific Parameters Disciplines: Skilled Services 08/25/2024 Active 1 goal linked to scheduled/document ed intervention 1 goal intervention scheduled/document ed in this visit Risk for Falls Disciplines: Skilled Services 08/25/2024 Active 1 goal linked to scheduled/document ed intervention 1 goal intervention scheduled/document ed in this visit Pain Disciplines: Skilled Services 08/25/2024 Active 1 goal linked to scheduled/document ed intervention 1 goal intervention scheduled/document ed in this visit PT Impaired muscle performance and/or ROM Disciplines: PT 08/25/2024 Active 1 goal linked to scheduled/document ed intervention 1 goal intervention scheduled/document ed in this visit PT Impaired mobility Disciplines: PT 08/25/2024 Active 1 goal linked to scheduled/document ed intervention 1 goal intervention scheduled/document ed in this visit PT Impaired gait Disciplines: PT 08/25/2024 Active 1 goal linked to scheduled/document ed intervention 1 goal intervention scheduled/document ed in this visit PT Orthopedic Condition Disciplines: PT 08/25/2024 Active 1 goal linked to scheduled/document ed intervention 3 goal interventions scheduled/document ed in this visit PT Learning Assessment Disciplines: PT 08/25/2024 Active 1 goal linked to scheduled/document ed intervention 1 goal intervention scheduled/document ed in this visit Discharge Disciplines: Skilled Services 08/25/2024 Active 1 goal linked to scheduled/document ed intervention 1 goal intervention scheduled/document ed in this visit Goals Goal Associated Problem Outcome Goal Met? Visit Notes Patient/caregiver will be able to identify and report symptoms of sepsis Description: Patient/caregiver will be able to identify signs/symptoms of sepsis infection and will verbalize actions to take if suspected by 09/10/24. Sepsis No Patient to maintain parameters within physician-specified ranges throughout certification period Physician Specific Parameters No Manage Risk for falls Description: Patient/caregiver will verbalize knowledge of individualized fall prevention strategies by 09/10/24. Risk for Falls No Manage Pain Description: Patient/caregiver will verbalize knowledge and understanding of appropriate techniques to control pain, including pain medication and non-pharmacological techniques. Patient will verbalize or demonstrate an acceptable level of pain as evidenced by a pain score of 2/10 and improvement in ability to perform activities of daily living to be achieved by 09/10/24. Pain No Improved Muscle Performance and/or ROM Description: LTG: Patient will demonstrate improved muscle performance to meet functional goals as evidenced by ability to tolerate 8 min or greater activity, to be achieved by 09/10/24 LTG: Patient and/or caregiver will verbalize/demonstrate independence with home exercise program, to improve functional mobility, to be achieved by 09/10/24. LTG: Patient will demonstrate improved right knee active range of motion to 3-90 degrees, to meet functional goals, to be achieved by 09/10/24. PT Impaired muscle performance and/or ROM No Improved Transfers Description: LTG: Patient will demonstrate safe transfers to/from bed, chair and toilet independently, to be achieved by 09/10/24. LTG: Patient will demonstrate safe transfers to/from shower/tub and car with contact guard assistance, to be achieved by 09/10/24. PT Impaired mobility No Improved Gait Description: LTG: Patient will demonstrate improved gait ability as evidenced by ambulation 150 feet with front wheeled walker and progressing to cane as appropriate independently with AD, to return to safe household ambulation, in order to access rooms, leave home, to be achieved by 09/10/24 PT Impaired gait No Manage Orthopedic Condition Description: Improve patient and/or caregiver understanding of post surgical and/or non-surgical orthopedic intervention management as evidenced by patient and/or caregiver able to verbalize, demonstrate, and teach back instruction, to be achieved by 09/10/24. PT Orthopedic Condition No Demonstrate understanding of education Description: STG: Patient will receive instruction on pain/edema mgmt, fall prevention/home safety, s/s of infection and when to call the MD, DVT prophylaxis, precautions and restrictions as applicable, and home exercises upon PT eval, to be achieved by 08/25/24 LTG: Patient and/or caregiver will understand educational instruction to be achieved by 09/10/24. PT Learning Assessment No Manage discharge planning Description: Patient/caregiver will verbalize understanding of ongoing discharge plan provided related to disease management, arrangements for outpatient and/or community services, obtaining medications, supplies, and DME, as needed throughout certification period. Discharge No Interventions Intervention Associated Problem/Goal Status Variance Visit Notes Risk of Sepsis Description: Patient is at risk for sepsis. Monitor closely for s/s of sepsis. Problem:Sepsis Goal:Patient/caregive r will be able to identify and report symptoms of sepsis Completed SPO2 Description: Notify Dr. Vasquez if pulse ox is <92% at rest. Problem:Physician Specific Parameters Goal:Patient to maintain parameters within physician-specified ranges throughout certification period Completed Instruct on individual fall risk factors and strategies to prevent falls and injuries caused by falls. Problem:Risk for Falls Goal:Manage Risk for falls Completed PT: Patient instructed on Managing Impaired Functional Mobility: Use assistive device(s): front wheeled walker Managing Pain Instruct on pain and instruct on strategies to control pain Problem:Pain Goal:Manage Pain Completed patient instructed on techniques to control pain including Pharmacological measures and Non-Pharmacological measures; rest, positioning/elevation, mobility/therapeutic exercise, use of DME/assistive devices and use of thermal modalities, apply ice to affected area for the following prescribed frequency: 10-20 minutes, 3-5 times daily Physical Therapy Therapeutic Exercises Problem:PT Impaired muscle performance and/or ROM Goal:Improved Muscle Performance and/or ROM Completed patient instructed on strengthening and range of motion exercises including supine AP, GS, QS, hip abd, SAQ, SLR, heel slides, knee ext stretch with foot on roll x 10 reps. Seated LAQ, knee flx stretch x 10 reps with verbal, tactile, visual and written cues for proper range and speed. patient instructed to perform home exercise program three times a day which included listed ex. Physical Therapy Transfer Training Problem:PT Impaired mobility Goal:Improved Transfers Completed Transfer training and instruction to patient on safe transfers to and from bed with stand by assist and verbal cues for positioning forward before standing. { Physical Therapy Gait Training Problem:PT Impaired gait Goal:Improved Gait Completed Gait training and instruction to patient on safe ambulation with front wheeled walker for 30 feet with stand by assist, with verbal cues for corrections of gait deviations including focus on heel strike. Demonstrates slow deliberate step to gait pattern. Instruct on orthopedic precautions and weight bearing restrictions Description: Orthopedic precautions including right total knee: no knee flexed over pillow at rest. Weight bearing restrictions include: WBAT of involved extremity. Problem:PT Orthopedic Condition Goal:Manage Orthopedic Condition Completed patient instructed on orthopedic precautions. Instruct on management of edema Problem:PT Orthopedic Condition Goal:Manage Orthopedic Condition Completed Instruct patient on management of edema including elevation of (R) LE above the level of the heart, ice, medication adherence strategies and benefits of activity. Instruct on self-management of post surgical and/or non-surgical orthopedic intervention Problem:PT Orthopedic Condition Goal:Manage Orthopedic Condition Completed patient instructed on managagement of orthopedic condition, signs and symptoms of infection, signs and symptoms of DVT/PE and instructed on when to call provider. Instruct and educate on knowledge deficits Problem:PT Learning Assessment Goal:Demonstrate understanding of education Completed patient verbalize and/or demonstrate understanding of physical therapy education including orthopedic condition management, surgical precautions, pain management, fall prevention strategies and home safety. Education methods include: verbal cues, tactile cues, written instructions, visual cues and teach back. Further education required to improve knowledge and compliance with integumentary and incision/wound care management, infection control precautions, functional activity and home exercise program. Instruct on ongoing discharge plan Problem:Discharge Goal:Manage discharge planning Completed Ongoing Discharge plan: Discharge plan discussed with patient including frequency and duration for home PT and plan for transition to: outpatient therapy. [facility] Visit Details Visit Type -PT ROUTINE Discipline -Physical Therapy Problems Problem Description Start Date Status Goals Interve ntions Sepsis Disciplines: Skilled Services 08/25/2024 Active 1 goal linked to scheduled/document ed intervention 1 goal intervention scheduled/document ed in this visit Physician Specific Parameters Disciplines: Skilled Services 08/25/2024 Active 1 goal linked to scheduled/document ed intervention 1 goal intervention scheduled/document ed in this visit Risk for Falls Disciplines: Skilled Services 08/25/2024 Active 1 goal linked to scheduled/document ed intervention 1 goal intervention scheduled/document ed in this visit Pain Disciplines: Skilled Services 08/25/2024 Active 1 goal linked to scheduled/document ed intervention 1 goal intervention scheduled/document ed in this visit PT Impaired muscle performance and/or ROM Disciplines: PT 08/25/2024 Active 1 goal linked to scheduled/document ed intervention 1 goal intervention scheduled/document ed in this visit PT Impaired mobility Disciplines: PT 08/25/2024 Active 2 goals linked to scheduled/document ed interventions 2 goal interventions scheduled/document ed in this visit PT Impaired gait Disciplines: PT 08/25/2024 Active 1 goal linked to scheduled/document ed intervention 1 goal intervention scheduled/document ed in this visit PT Orthopedic Condition Disciplines: PT 08/25/2024 Active 1 goal linked to scheduled/document ed intervention 3 goal interventions scheduled/document ed in this visit PT Learning Assessment Disciplines: PT 08/25/2024 Active 1 goal linked to scheduled/document ed intervention 1 goal intervention scheduled/document ed in this visit Goals Goal Associated Problem Outcome Goal Met? Visit Notes Patient/caregiver will be able to identify and report symptoms of sepsis Description: Patient/caregiver will be able to identify signs/symptoms of sepsis infection and will verbalize actions to take if suspected by 09/10/24. Sepsis No Patient to maintain parameters within physician-specified ranges throughout certification period Physician Specific Parameters No Manage Risk for falls Description: Patient/caregiver will verbalize knowledge of individualized fall prevention strategies by 09/10/24. Risk for Falls No Manage Pain Description: Patient/caregiver will verbalize knowledge and understanding of appropriate techniques to control pain, including pain medication and non-pharmacological techniques. Patient will verbalize or demonstrate an acceptable level of pain as evidenced by a pain score of 2/10 and improvement in ability to perform activities of daily living to be achieved by 09/10/24. Pain No Improved Muscle Performance and/or ROM Description: LTG: Patient will demonstrate improved muscle performance to meet functional goals as evidenced by ability to tolerate 8 min or greater activity, to be achieved by 09/10/24 LTG: Patient and/or caregiver will verbalize/demonstrate independence with home exercise program, to improve functional mobility, to be achieved by 09/10/24. LTG: Patient will demonstrate improved right knee active range of motion to 3-90 degrees, to meet functional goals, to be achieved by 09/10/24. PT Impaired muscle performance and/or ROM No Improved Transfers Description: LTG: Patient will demonstrate safe transfers to/from bed, chair and toilet independently, to be achieved by 09/10/24. LTG: Patient will demonstrate safe transfers to/from shower/tub and car with contact guard assistance, to be achieved by 09/10/24. PT Impaired mobility No Improved Bed Mobility Description: LTG: Patient will demonstrate improved bed mobility, ability to position self and supine <> sit independently to be achieved by 09/10/24. PT Impaired mobility No Improved Gait Description: LTG: Patient will demonstrate improved gait ability as evidenced by ambulation 150 feet with front wheeled walker and progressing to cane as appropriate independently with AD, to return to safe household ambulation, in order to access rooms, leave home, to be achieved by 09/10/24 PT Impaired gait No Manage Orthopedic Condition Description: Improve patient and/or caregiver understanding of post surgical and/or non-surgical orthopedic intervention management as evidenced by patient and/or caregiver able to verbalize, demonstrate, and teach back instruction, to be achieved by 09/10/24. PT Orthopedic Condition No Demonstrate understanding of education Description: STG: Patient will receive instruction on pain/edema mgmt, fall prevention/home safety, s/s of infection and when to call the MD, DVT prophylaxis, precautions and restrictions as applicable, and home exercises upon PT eval, to be achieved by 08/25/24 LTG: Patient and/or caregiver will understand educational instruction to be achieved by 09/10/24. PT Learning Assessment No Interventions Intervention Associated Problem/Goal Status Variance Visit Notes Risk of Sepsis Description: Patient is at risk for sepsis. Monitor closely for s/s of sepsis. Problem:Sepsis Goal:Patient/caregive r will be able to identify and report symptoms of sepsis Completed SPO2 Description: Notify Dr. Vasquez if pulse ox is <92% at rest. Problem:Physician Specific Parameters Goal:Patient to maintain parameters within physician-specified ranges throughout certification period Completed Instruct on individual fall risk factors and strategies to prevent falls and injuries caused by falls. Problem:Risk for Falls Goal:Manage Risk for falls Completed PT: Patient instructed on Eliminating Environmental Hazards: Keep pathways clear, Remove unsafe rugs, Move furniture from pathways, Keep rooms and walkways well lit, Install hand rails/grab bars and Wear supportive shoes or non-skid socks Managing Impaired Functional Mobility: Use assistive device(s): front wheeled walker Managing Pain Instruct on pain and instruct on strategies to control pain Problem:Pain Goal:Manage Pain Completed patient instructed on techniques to control pain including Pharmacological measures and Non-Pharmacological measures; rest, positioning/elevation and use of thermal modalities, apply ice to affected area . Physical Therapy Therapeutic Exercises Problem:PT Impaired muscle performance and/or ROM Goal:Improved Muscle Performance and/or ROM Completed patient instructed on strengthening and range of motion exercises including Supine : GS,QS,, HIPADD, HIP ABD, HEEL SLIDES, SAQ, X 10 supine passive knee ext x 5 min seated knee flexipon to 65* . patient instructed to perform home exercise program twice a day which included hourly ambulation. Physical Therapy Transfer Training Problem:PT Impaired mobility Goal:Improved Transfers Completed Transfer training and instruction to patient on safe transfers to and from bed and chair with supervision and verbal cues for technique ...using LLE to lift up the RLE Physical Therapy Bed Mobility Training Problem:PT Impaired mobility Goal:Improved Bed Mobility Completed Bed mobility training and instruction to patient, including supine<>sit and repositioning self with supervision and verbal cues for using LLE to lift/lower RLE . Physical Therapy Gait Training Problem:PT Impaired gait Goal:Improved Gait Completed Gait training and instruction to patient on safe ambulation with front wheeled walker for 20' x 2 feet with supervision, with verbal cues for corrections of gait deviations including increasing wt on her RLE . Instruct on orthopedic precautions and weight bearing restrictions Description: Orthopedic precautions including right total knee: no knee flexed over pillow at rest. Weight bearing restrictions include: WBAT of involved extremity. Problem:PT Orthopedic Condition Goal:Manage Orthopedic Condition Completed patient instructed on orthopedic precautions. Instruct on management of edema Problem:PT Orthopedic Condition Goal:Manage Orthopedic Condition Completed Instruct patient on management of edema including elevation of RLE above the level of the heart and ice. Instruct on self-management of post surgical and/or non-surgical orthopedic intervention Problem:PT Orthopedic Condition Goal:Manage Orthopedic Condition Completed patient instructed on managagement of orthopedic condition, measures to avoid skin breakdown, staying well hydrated, eating foods with high protein, signs and symptoms of infection, signs and symptoms of DVT/PE, follow provider guidance for showering and instructed on when to call provider. Instruct and educate on knowledge deficits Problem:PT Learning Assessment Goal:Demonstrate understanding of education Completed patient verbalize and/or demonstrate understanding of physical therapy education including orthopedic condition management, surgical precautions, pain management, fall prevention strategies, home safety, functional activity and home exercise program. Education methods include: verbal cues and written instructions. Further education required to improve knowledge and compliance with orthopedic condition management, surgical precautions, pain management, fall prevention strategies, home safety, functional activity and home exercise program. [facility] Visit Details Visit Type -PT ROUTINE Discipline -Physical Therapy Problems Problem Description Start Date Status Goals Interve ntions Sepsis Disciplines: Skilled Services 08/25/2024 Active 1 goal linked to scheduled/document ed intervention 1 goal intervention scheduled/document ed in this visit Physician Specific Parameters Disciplines: Skilled Services 08/25/2024 Active 1 goal linked to scheduled/document ed intervention 1 goal intervention scheduled/document ed in this visit Risk for Falls Disciplines: Skilled Services 08/25/2024 Active 1 goal linked to scheduled/document ed intervention 1 goal intervention scheduled/document ed in this visit PT Impaired muscle performance and/or ROM Disciplines: PT 08/25/2024 Active 1 goal linked to scheduled/document ed intervention 1 goal intervention scheduled/document ed in this visit PT Impaired mobility Disciplines: PT 08/25/2024 Active 1 goal linked to scheduled/document ed intervention 1 goal intervention scheduled/document ed in this visit PT Impaired gait Disciplines: PT 08/25/2024 Active 1 goal linked to scheduled/document ed intervention 1 goal intervention scheduled/document ed in this visit PT Orthopedic Condition Disciplines: PT 08/25/2024 Active 1 goal linked to scheduled/document ed intervention 4 goal interventions scheduled/document ed in this visit PT Learning Assessment Disciplines: PT 08/25/2024 Active 1 goal linked to scheduled/document ed intervention 1 goal intervention scheduled/document ed in this visit Goals Goal Associated Problem Outcome Goal Met? Visit Notes Patient/caregiver will be able to identify and report symptoms of sepsis Description: Patient/caregiver will be able to identify signs/symptoms of sepsis infection and will verbalize actions to take if suspected by 09/10/24. Sepsis No Patient to maintain parameters within physician-specified ranges throughout certification period Physician Specific Parameters No Manage Risk for falls Description: Patient/caregiver will verbalize knowledge of individualized fall prevention strategies by 09/10/24. Risk for Falls No Improved Muscle Performance and/or ROM Description: LTG: Patient will demonstrate improved muscle performance to meet functional goals as evidenced by ability to tolerate 8 min or greater activity, to be achieved by 09/10/24 LTG: Patient and/or caregiver will verbalize/demonstrate independence with home exercise program, to improve functional mobility, to be achieved by 09/10/24. LTG: Patient will demonstrate improved right knee active range of motion to 3-90 degrees, to meet functional goals, to be achieved by 09/10/24. PT Impaired muscle performance and/or ROM No Improved Transfers Description: LTG: Patient will demonstrate safe transfers to/from bed, chair and toilet independently, to be achieved by 09/10/24. LTG: Patient will demonstrate safe transfers to/from shower/tub and car with contact guard assistance, to be achieved by 09/10/24. PT Impaired mobility No Improved Gait Description: LTG: Patient will demonstrate improved gait ability as evidenced by ambulation 150 feet with front wheeled walker and progressing to cane as appropriate independently with AD, to return to safe household ambulation, in order to access rooms, leave home, to be achieved by 09/10/24 PT Impaired gait No Manage Orthopedic Condition Description: Improve patient and/or caregiver understanding of post surgical and/or non-surgical orthopedic intervention management as evidenced by patient and/or caregiver able to verbalize, demonstrate, and teach back instruction, to be achieved by 09/10/24. PT Orthopedic Condition No Demonstrate understanding of education Description: STG: Patient will receive instruction on pain/edema mgmt, fall prevention/home safety, s/s of infection and when to call the MD, DVT prophylaxis, precautions and restrictions as applicable, and home exercises upon PT eval, to be achieved by 08/25/24 LTG: Patient and/or caregiver will understand educational instruction to be achieved by 09/10/24. PT Learning Assessment No Interventions Intervention Associated Problem/Goal Status Variance Visit Notes Risk of Sepsis Description: Patient is at risk for sepsis. Monitor closely for s/s of sepsis. Problem:Sepsis Goal:Patient/caregiver will be able to identify and report symptoms of sepsis Completed SPO2 Description: Notify Dr. Vasquez if pulse ox is <92% at rest. Problem:Physician Specific Parameters Goal:Patient to maintain parameters within physician-specified ranges throughout certification period Completed Instruct on individual fall risk factors and strategies to prevent falls and injuries caused by falls. Problem:Risk for Falls Goal:Manage Risk for falls Completed PT: Patient instructed on Eliminating Environmental Hazards: Keep pathways clear, Keep pets out of pathways, Remove unsafe rugs, Move furniture from pathways, Keep rooms and walkways well lit, Install hand rails/grab bars and Wear supportive shoes or non-skid socks Managing Impaired Functional Mobility: Use assistive device(s): front wheeled walker Managing Pain Physical Therapy Therapeutic Exercises Problem:PT Impaired muscle performance and/or ROM Goal:Improved Muscle Performance and/or ROM Completed patient instructed on strengthening and range of motion exercises including Supine : GS,QS,, HIPADD, HIP ABD, HEEL SLIDES, SAQ, X 10 supine passive knee ext x 5 min seated knee flexipon to AROM 68, PROM 70 . patient instructed to perform home exercise program twice a day which included hourly ambulation. Physical Therapy Transfer Training Problem:PT Impaired mobility Goal:Improved Transfers Completed Transfer training and instruction to patient on safe transfers to and from bed and chair with supervision and verbal cues for technique . Physical Therapy Gait Training Problem:PT Impaired gait Goal:Improved Gait Completed Gait training and instruction to patient on safe ambulation with front wheeled walker for .10' x 4 feet with supervision, with verbal cues for corrections of gait deviations including recip pattern and heel toe Instruct on orthopedic precautions and weight bearing restrictions Description: Orthopedic precautions including right total knee: no knee flexed over pillow at rest. Weight bearing restrictions include: WBAT of involved extremity. Problem:PT Orthopedic Condition Goal:Manage Orthopedic Condition Completed patient instructed on orthopedic precautions. Instruct on management of edema Problem:PT Orthopedic Condition Goal:Manage Orthopedic Condition Completed Instruct patient on management of edema including elevation of RLE above the level of the heart and ice. Physical therapy to perform surgical incision/wound management Description: Removal of post-op dressing on 08/30 - 09/02/24. If no drainage is present, leave open to air; if drainage is present, cover with clean dressing and contact provider. Problem:PT Orthopedic Condition Goal:Manage Orthopedic Condition Completed Intervention completed this date. Instruct on self-management of post surgical and/or non-surgical orthopedic intervention Problem:PT Orthopedic Condition Goal:Manage Orthopedic Condition Completed patient instructed on managagement of orthopedic condition, measures to avoid skin breakdown, staying well hydrated, eating foods with high protein, signs and symptoms of infection, signs and symptoms of DVT/PE and instructed on when to call provider. Instruct and educate on knowledge deficits Problem:PT Learning Assessment Goal:Demonstrate understanding of education Completed patient verbalize and/or demonstrate understanding of physical therapy education including orthopedic condition management, weight bearing precautions, surgical precautions, pain management, fall prevention strategies, home safety, functional activity and home exercise program. Education methods include: verbal cues and written instructions. Further education required to improve knowledge and compliance with fall prevention strategies, home safety, functional activity and home exercise program. documented in this encounter [facility] home Plan of care note* Visit Details Visit Type -PT ROUTINE Discipline -Physical Therapy Problems Problem Description Start Date Status Goals Interve ntions Sepsis Disciplines: Skilled Services 08/25/2024 Active 1 goal linked to scheduled/document ed intervention 1 goal intervention scheduled/document ed in this visit Physician Specific Parameters Disciplines: Skilled Services 08/25/2024 Active 1 goal linked to scheduled/document ed intervention 1 goal intervention scheduled/document ed in this visit Risk for Falls Disciplines: Skilled Services 08/25/2024 Active 1 goal linked to scheduled/document ed intervention 1 goal intervention scheduled/document ed in this visit Pain Disciplines: Skilled Services 08/25/2024 Active 1 goal linked to scheduled/document ed intervention 1 goal intervention scheduled/document ed in this visit PT Impaired muscle performance and/or ROM Disciplines: PT 08/25/2024 Active 1 goal linked to scheduled/document ed intervention 1 goal intervention scheduled/document ed in this visit PT Impaired mobility Disciplines: PT 08/25/2024 Active 2 goals linked to scheduled/document ed interventions 2 goal interventions scheduled/document ed in this visit PT Impaired gait Disciplines: PT 08/25/2024 Active 1 goal linked to scheduled/document ed intervention 1 goal intervention scheduled/document ed in this visit PT Orthopedic Condition Disciplines: PT 08/25/2024 Active 1 goal linked to scheduled/document ed intervention 3 goal interventions scheduled/document ed in this visit PT Learning Assessment Disciplines: PT 08/25/2024 Active 1 goal linked to scheduled/document ed intervention 1 goal intervention scheduled/document ed in this visit Discharge Disciplines: Skilled Services 08/25/2024 Active 1 goal linked to scheduled/document ed intervention 1 goal intervention scheduled/document ed in this visit Goals Goal Associated Problem Outcome Goal Met? Visit Notes Patient/caregiver will be able to identify and report symptoms of sepsis Description: Patient/caregiver will be able to identify signs/symptoms of sepsis infection and will verbalize actions to take if suspected by 09/10/24. Sepsis No Patient to maintain parameters within physician-specified ranges throughout certification period Physician Specific Parameters No Manage Risk for falls Description: Patient/caregiver will verbalize knowledge of individualized fall prevention strategies by 09/10/24. Risk for Falls No Manage Pain Description: Patient/caregiver will verbalize knowledge and understanding of appropriate techniques to control pain, including pain medication and non-pharmacological techniques. Patient will verbalize or demonstrate an acceptable level of pain as evidenced by a pain score of 2/10 and improvement in ability to perform activities of daily living to be achieved by 09/10/24. Pain No Improved Muscle Performance and/or ROM Description: LTG: Patient will demonstrate improved muscle performance to meet functional goals as evidenced by ability to tolerate 8 min or greater activity, to be achieved by 09/10/24 LTG: Patient and/or caregiver will verbalize/demonstrate independence with home exercise program, to improve functional mobility, to be achieved by 09/10/24. LTG: Patient will demonstrate improved right knee active range of motion to 3-90 degrees, to meet functional goals, to be achieved by 09/10/24. PT Impaired muscle performance and/or ROM No Improved Transfers Description: LTG: Patient will demonstrate safe transfers to/from bed, chair and toilet independently, to be achieved by 09/10/24. LTG: Patient will demonstrate safe transfers to/from shower/tub and car with contact guard assistance, to be achieved by 09/10/24. PT Impaired mobility No Improved Bed Mobility Description: LTG: Patient will demonstrate improved bed mobility, ability to position self and supine <> sit independently to be achieved by 09/10/24. PT Impaired mobility No Improved Gait Description: LTG: Patient will demonstrate improved gait ability as evidenced by ambulation 150 feet with front wheeled walker and progressing to cane as appropriate independently with AD, to return to safe household ambulation, in order to access rooms, leave home, to be achieved by 09/10/24 PT Impaired gait No Manage Orthopedic Condition Description: Improve patient and/or caregiver understanding of post surgical and/or non-surgical orthopedic intervention management as evidenced by patient and/or caregiver able to verbalize, demonstrate, and teach back instruction, to be achieved by 09/10/24. PT Orthopedic Condition No Demonstrate understanding of education Description: STG: Patient will receive instruction on pain/edema mgmt, fall prevention/home safety, s/s of infection and when to call the MD, DVT prophylaxis, precautions and restrictions as applicable, and home exercises upon PT eval, to be achieved by 08/25/24 LTG: Patient and/or caregiver will understand educational instruction to be achieved by 09/10/24. PT Learning Assessment No Manage discharge planning Description: Patient/caregiver will verbalize understanding of ongoing discharge plan provided related to disease management, arrangements for outpatient and/or community services, obtaining medications, supplies, and DME, as needed throughout certification period. Discharge No Interventions Intervention Associated Problem/Goal Status Variance Visit Notes Risk of Sepsis Description: Patient is at risk for sepsis. Monitor closely for s/s of sepsis. Problem:Sepsis Goal:Patient/caregive r will be able to identify and report symptoms of sepsis Completed SPO2 Description: Notify Dr. Vasquez if pulse ox is <92% at rest. Problem:Physician Specific Parameters Goal:Patient to maintain parameters within physician-specified ranges throughout certification period Completed Instruct on individual fall risk factors and strategies to prevent falls and injuries caused by falls. Problem:Risk for Falls Goal:Manage Risk for falls Completed PT: Patient instructed on Eliminating Environmental Hazards: Keep pathways clear, Remove unsafe rugs, Move furniture from pathways and Wear supportive shoes or non-skid socks Managing Impaired Functional Mobility: Use assistive device(s): front wheeled walker Managing Pain Instruct on pain and instruct on strategies to control pain Problem:Pain Goal:Manage Pain Completed patient instructed on techniques to control pain including Pharmacological measures and Non-Pharmacological measures; rest, positioning/elevation and use of thermal modalities, apply ice to affected area . Physical Therapy Therapeutic Exercises Problem:PT Impaired muscle performance and/or ROM Goal:Improved Muscle Performance and/or ROM Completed patient instructed on strengthening and range of motion exercises including Supine : GS,QS,, HIPADD, HIP ABD, HEEL SLIDES, SAQ, X 15 standing : heel raises, toe raises, , Right- HS, hip flex x 10 supine passive knee ext x 5 min seated knee flexipon to AROM 65, PROM 77 . patient instructed to perform home exercise program twice a day which included hourly ambulation. Physical Therapy Transfer Training Problem:PT Impaired mobility Goal:Improved Transfers Completed DEANDRE transfers with safe/proper technique Physical Therapy Bed Mobility Training Problem:PT Impaired mobility Goal:Improved Bed Mobility Completed Bed mobility training and instruction to patient, including rolling, supine<>sit and repositioning self with supervision and verbal cues for technique . Physical Therapy Gait Training Problem:PT Impaired gait Goal:Improved Gait Completed Gait training and instruction to patient on safe ambulation with front wheeled walker for 12' x 4 feet with supervision, with verbal cues for corrections of gait deviations including increased stride length, recip pattern , heel toe Instruct on orthopedic precautions and weight bearing restrictions Description: Orthopedic precautions including right total knee: no knee flexed over pillow at rest. Weight bearing restrictions include: WBAT of involved extremity. Problem:PT Orthopedic Condition Goal:Manage Orthopedic Condition Completed patient instructed on orthopedic precautions. Instruct on management of edema Problem:PT Orthopedic Condition Goal:Manage Orthopedic Condition Completed Instruct patient on management of edema including elevation of RLE above the level of the heart and ice. Instruct on self-management of post surgical and/or non-surgical orthopedic intervention Problem:PT Orthopedic Condition Goal:Manage Orthopedic Condition Completed patient instructed on managagement of orthopedic condition, staying well hydrated, eating foods with high protein, signs and symptoms of infection and signs and symptoms of DVT/PE. Instruct and educate on knowledge deficits Problem:PT Learning Assessment Goal:Demonstrate understanding of education Completed patient verbalize and/or demonstrate understanding of physical therapy education including orthopedic condition management, surgical precautions, pain management, fall prevention strategies, home safety, functional activity and home exercise program. Education methods include: verbal cues and written instructions. Further education required to improve knowledge and compliance with fall prevention strategies, home safety, functional activity and home exercise program. Instruct on ongoing discharge plan Problem:Discharge Goal:Manage discharge planning Completed Ongoing Discharge plan: Discharge plan discussed with patient including frequency and duration for home PT and plan for transition to: outpatient therapy. [facility] Visit Details Visit Type -PT AGENCY LUCY [facility]ERNS Discipline -Physical Therapy Problems Problem Description Start Date Status Goals Interve ntions Mental Health Disciplines: Skilled Services 08/25/2024 Resolved on 09/09/2024 1 goal linked to scheduled/document ed intervention Sepsis Disciplines: Skilled Services 08/25/2024 Resolved on 09/09/2024 1 goal linked to scheduled/document ed intervention 1 goal intervention scheduled/document ed in this visit Physician Specific Parameters Disciplines: Skilled Services 08/25/2024 Resolved on 09/09/2024 1 goal linked to scheduled/document ed intervention 1 goal intervention scheduled/document ed in this visit Risk for Falls Disciplines: Skilled Services 08/25/2024 Resolved on 09/09/2024 1 goal linked to scheduled/document ed intervention 1 goal intervention scheduled/document ed in this visit Pain Disciplines: Skilled Services 08/25/2024 Resolved on 09/09/2024 1 goal linked to scheduled/document ed intervention 1 goal intervention scheduled/document ed in this visit High Risk Medications Disciplines: Skilled Services 08/25/2024 Resolved on 09/09/2024 1 goal linked to scheduled/document ed intervention PT Impaired muscle performance and/or ROM Disciplines: PT 08/25/2024 Resolved on 09/09/2024 1 goal linked to scheduled/document ed intervention 1 goal intervention scheduled/document ed in this visit PT Impaired mobility Disciplines: PT 08/25/2024 Resolved on 09/09/2024 2 goals linked to scheduled/document ed interventions 2 goal interventions scheduled/document ed in this visit PT Impaired gait Disciplines: PT 08/25/2024 Resolved on 09/09/2024 2 goals linked to scheduled/document ed interventions 2 goal interventions scheduled/document ed in this visit PT Orthopedic Condition Disciplines: PT 08/25/2024 Resolved on 09/09/2024 1 goal linked to scheduled/document ed intervention 3 goal interventions scheduled/document ed in this visit PT Learning Assessment Disciplines: PT 08/25/2024 Resolved on 09/09/2024 1 goal linked to scheduled/document ed intervention 1 goal intervention scheduled/document ed in this visit Discharge Disciplines: Skilled Services 08/25/2024 Resolved on 09/09/2024 1 goal linked to scheduled/document ed intervention Goals Goal Associated Problem Outcome Goal Met? Visit Notes Improved management of mental health condition(s) Description: Patient/caregiver will teach back mental health symptom identification and management techniques by 09/10/24. Mental Health Completed Yes Patient/caregiver will be able to identify and report symptoms of sepsis Description: Patient/caregiver will be able to identify signs/symptoms of sepsis infection and will verbalize actions to take if suspected by 09/10/24. Sepsis Completed Yes Patient to maintain parameters within physician-specified ranges throughout certification period Physician Specific Parameters Completed Yes Manage Risk for falls Description: Patient/caregiver will verbalize knowledge of individualized fall prevention strategies by 09/10/24. Risk for Falls Completed Yes Manage Pain Description: Patient/caregiver will verbalize knowledge and understanding of appropriate techniques to control pain, including pain medication and non-pharmacological techniques. Patient will verbalize or demonstrate an acceptable level of pain as evidenced by a pain score of 2/10 and improvement in ability to perform activities of daily living to be achieved by 09/10/24. Pain Completed Yes Patient/caregiver will teach back high risk medication side effect and precaution education Description: STG Patient/caregiver will verbalize understanding of high risk medication side effects and precautions to be achieved by 08/25/24. LTG Patient/caregiver will continue to verbalize understanding of high risk medication side effects and precautions throughout certification period. High Risk Medications Completed Yes Improved Muscle Performance and/or ROM Description: LTG: Patient will demonstrate improved muscle performance to meet functional goals as evidenced by ability to tolerate 8 min or greater activity, to be achieved by 09/10/24 LTG: Patient and/or caregiver will verbalize/demonstrate independence with home exercise program, to improve functional mobility, to be achieved by 09/10/24. LTG: Patient will demonstrate improved right knee active range of motion to 3-90 degrees, to meet functional goals, to be achieved by 09/10/24. PT Impaired muscle performance and/or ROM Completed Yes Improved Transfers Description: LTG: Patient will demonstrate safe transfers to/from bed, chair and toilet independently, to be achieved by 09/10/24. LTG: Patient will demonstrate safe transfers to/from shower/tub and car with contact guard assistance, to be achieved by 09/10/24. PT Impaired mobility Completed Yes Improved Bed Mobility Description: LTG: Patient will demonstrate improved bed mobility, ability to position self and supine <> sit independently to be achieved by 09/10/24. PT Impaired mobility Completed Yes Improved Stair Climbing Description: LTG: Patient will demonstrate improved stair negotiation as evidenced by ascend/descend 3 steps without railing with standby assistance, to safely exit home, to be achieved by 09/10/24. PT Impaired gait Completed Yes Improved Gait Description: LTG: Patient will demonstrate improved gait ability as evidenced by ambulation 150 feet with front wheeled walker and progressing to cane as appropriate independently with AD, to return to safe household ambulation, in order to access rooms, leave home, to be achieved by 09/10/24 PT Impaired gait Completed Yes Manage Orthopedic Condition Description: Improve patient and/or caregiver understanding of post surgical and/or non-surgical orthopedic intervention management as evidenced by patient and/or caregiver able to verbalize, demonstrate, and teach back instruction, to be achieved by 09/10/24. PT Orthopedic Condition Completed Yes Demonstrate understanding of education Description: STG: Patient will receive instruction on pain/edema mgmt, fall prevention/home safety, s/s of infection and when to call the MD, DVT prophylaxis, precautions and restrictions as applicable, and home exercises upon PT eval, to be achieved by 08/25/24 LTG: Patient and/or caregiver will understand educational instruction to be achieved by 09/10/24. PT Learning Assessment Completed Yes Manage discharge planning Description: Patient/caregiver will verbalize understanding of ongoing discharge plan provided related to disease management, arrangements for outpatient and/or community services, obtaining medications, supplies, and DME, as needed throughout certification period. Discharge Completed Yes Interventions Intervention Associated Problem/Goal Status Variance Visit Notes Risk of Sepsis Description: Patient is at risk for sepsis. Monitor closely for s/s of sepsis. Problem:Sepsis Goal:Patient/caregive r will be able to identify and report symptoms of sepsis Completed SPO2 Description: Notify Dr. Vasquez if pulse ox is <92% at rest. Problem:Physician Specific Parameters Goal:Patient to maintain parameters within physician-specified ranges throughout certification period Completed Instruct on individual fall risk factors and strategies to prevent falls and injuries caused by falls. Problem:Risk for Falls Goal:Manage Risk for falls Completed PT: Patient instructed on Eliminating Environmental Hazards: Keep pathways clear, Keep pets out of pathways, Remove unsafe rugs, Move furniture from pathways, Keep rooms and walkways well lit, Install hand rails/grab bars and Wear supportive shoes or non-skid socks Managing Impaired Functional Mobility: Use assistive device(s): front wheeled walker Managing Pain Instruct on pain and instruct on strategies to control pain Problem:Pain Goal:Manage Pain Completed patient instructed on techniques to control pain including Pharmacological measures and Non-Pharmacological measures; rest, positioning/elevation and use of thermal modalities, apply ice to affected area . Physical Therapy Therapeutic Exercises Problem:PT Impaired muscle performance and/or ROM Goal:Improved Muscle Performance and/or ROM Completed patient instructed on strengthening and range of motion exercises including Supine : GS,QS,, HIPADD, HIP ABD, HEEL SLIDES, SAQ, X 15 standing : heel raises, toe raises, , Right- HS, hip flex x 10 supine passive knee ext x 5 min seated knee flexipon to AROM 87, PROM 90 . patient instructed to perform home exercise program twice a day which included hourly ambulation. Physical Therapy Transfer Training Problem:PT Impaired mobility Goal:Improved Transfers Completed DEANDRE transfers with safe/proper technque Physical Therapy Bed Mobility Training Problem:PT Impaired mobility Goal:Improved Bed Mobility Completed DEANDRE bed mobility Physical Therapy Stair Training Problem:PT Impaired gait Goal:Improved Stair Climbing Completed Stair training and instruction to patient on safe stair climbing, ascend/descend 2 steps, with walkerand step together sequence Physical Therapy Gait Training Problem:PT Impaired gait Goal:Improved Gait Completed amb with WW with steady gait. developing a recip heel toe pattern Instruct on orthopedic precautions and weight bearing restrictions Description: Orthopedic precautions including right total knee: no knee flexed over pillow at rest. Weight bearing restrictions include: WBAT of involved extremity. Problem:PT Orthopedic Condition Goal:Manage Orthopedic Condition Completed patient instructed on orthopedic precautions and weight bearing restrictions. Instruct on management of edema Problem:PT Orthopedic Condition Goal:Manage Orthopedic Condition Completed Instruct patient on management of edema including elevation of RLE above the level of the heart and ice. Instruct on self-management of post surgical and/or non-surgical orthopedic intervention Problem:PT Orthopedic Condition Goal:Manage Orthopedic Condition Completed patient instructed on managagement of orthopedic condition, measures to avoid skin breakdown, staying well hydrated, eating foods with high protein, signs and symptoms of infection and signs and symptoms of DVT/PE. Instruct and educate on knowledge deficits Problem:PT Learning Assessment Goal:Demonstrate understanding of education Completed patient verbalize and/or demonstrate understanding of physical therapy education including orthopedic condition management, surgical precautions, pain management, fall prevention strategies, home safety, functional activity and home exercise program. Education methods include: verbal cues and written instructions. [facility] Visit Details Visit Type -PT SOC Discipline -Physical Therapy Problems Problem Description Start Date Status Goals Interve ntions Medication Education Disciplines: Skilled Services 11/14/2024 Active 1 goal linked to scheduled/document ed intervention 1 goal intervention scheduled/document ed in this visit Sepsis Disciplines: Skilled Services 11/14/2024 Active 1 goal linked to scheduled/document ed intervention 1 goal intervention scheduled/document ed in this visit Physician Specific Parameters Disciplines: Skilled Services 11/14/2024 Active 1 goal linked to scheduled/document ed intervention 1 goal intervention scheduled/document ed in this visit Risk for Falls Disciplines: Skilled Services 11/14/2024 Active 1 goal linked to scheduled/document ed intervention 1 goal intervention scheduled/document ed in this visit Pain Disciplines: Skilled Services 11/14/2024 Active 1 goal linked to scheduled/document ed intervention 1 goal intervention scheduled/document ed in this visit High Risk Medications Disciplines: Skilled Services 11/14/2024 Active 1 goal linked to scheduled/document ed intervention 3 goal interventions scheduled/document ed in this visit Discharge Disciplines: Skilled Services 11/14/2024 Active 1 goal linked to scheduled/document ed intervention 2 goal interventions scheduled/document ed in this visit PT Impaired muscle performance and/or ROM Disciplines: PT 11/14/2024 Active 1 goal linked to scheduled/document ed intervention 1 goal intervention scheduled/document ed in this visit PT Orthopedic Condition Disciplines: PT 11/14/2024 Active 1 goal linked to scheduled/document ed intervention 2 goal interventions scheduled/document ed in this visit PT Learning Assessment Disciplines: PT 11/14/2024 Active 1 goal linked to scheduled/document ed intervention 1 goal intervention scheduled/document ed in this visit Goals Goal Associated Problem Outcome Goal Met? Visit Notes Patient/caregiver will demonstrate ability to obtain, store, identify and administer ordered medications, keep accurate medication list in home, and adhere to medication schedule Description: Patient/caregiver will demonstrate ability to obtain, store, identify and administer ordered medications, keep accurate medication list in home, and adhere to medication schedule by 01/12/25. Medication Education No Patient/caregiver will be able to identify and report symptoms of sepsis Description: Patient/caregiver will be able to identify signs/symptoms of sepsis infection and will verbalize actions to take if suspected by 01/12/25. Sepsis No Patient to maintain parameters within physician-specified ranges throughout certification period Physician Specific Parameters No Manage Risk for falls Description: Patient/caregiver will verbalize knowledge of individualized fall prevention strategies by 01/12/25. Risk for Falls No Manage Pain Description: Patient/caregiver will verbalize knowledge and understanding of appropriate techniques to control pain, including pain medication and non-pharmacological techniques. Patient will verbalize or demonstrate an acceptable level of pain as eviden aditi by a pain score of 3/10 and improvement in ability to perform activities of daily living to be achieved by 01/12/25. Pain No Patient/caregiver will teach back high risk medication side effect and precaution education Description: STG Patient/caregiver will verbalize understanding of high risk medication side effects and precautions to be achieved by 11/14/24. LTG Patient/caregiver will continue to verbalize understanding of high risk medication side effects and precautions throughout certification period. High Risk Medications No Manage discharge planning Description: Patient/caregiver will verbalize understanding of ongoing discharge plan provided related to disease management, arrangements for outpatient and/or community services, obtaining medications, supplies, and DME, as needed throu ghout certification period. Discharge No Improved Muscle Performance and/or ROM Description: LTG: Patient and/or caregiver will verbalize/demonstrate independence with home exercise program, to improve functional mobility, to be achieved by 12/03/24. LTG: Patient will demonstrate improved left knee active range of motion to 0-2-92 degrees, to meet functional goals, to be achieved by 12/03/24. PT Impaired muscle performance and/or ROM No Manage Orthopedic Condition Description: Improve patient and/or caregiver understanding of post surgical and/or non-surgical orthopedic intervention management as evidenced by patient and/or caregiver able to verbalize, demonstrate, and teach back instruction, to be achieved by 12/03/24. PT Orthopedic Condition No Demonstrate understanding of education Description: Patient and/or caregiver will understand educational instruction to be achieved by 12/03/24. PT Learning Assessment No Interventions Intervention Associated Problem/Goal Status Variance Visit Notes Medication Education Description: Evaluate/instruct patient/caregiver on obtaining, storing, identifying and administering ordered medications as well as keeping accurate medication list in the home and adhereing to medication schedule Problem:Medication Education Goal:Patient/caregive r will demonstrate ability to obtain, store, identify and administer ordered medications, keep accurate medication list in home, and adhere to medication schedule Completed Patient instructed on importance of keeping accurate medication list in home, adhering to medication schedule and medication, route, dose, frequency, purpose, and side effects of medications. Risk of Sepsis Description: Patient is at risk for sepsis. Monitor closely for s/s of sepsis. Problem:Sepsis Goal:Patient/caregive r will be able to identify and report symptoms of sepsis Completed SPO2 Description: Notify Dr. Frannie Vasquez if pulse ox is <92% at rest. Problem:Physician Specific Parameters Goal:Patient to maintain parameters within physician-specified ranges throughout certification period Completed Instruct on individual fall risk factors and strategies to prevent falls and injuries caused by falls. Problem:Risk for Falls Goal:Manage Risk for falls Completed PT: Patient instructed on Managing Impaired Functional Mobility: Use assistive device(s): front wheeled walker Instruct on pain and instruct on strategies to control pain Problem:Pain Goal:Manage Pain Completed patient instructed on techniques to control pain including Pharmacological measures and Non-Pharmacological measures; positioning/elevation, mobility/therapeutic exercise, use of DME/assistive devices and use of thermal modalities, apply ice to affected area for the following prescribed frequency: 20 minutes every hour. Opioids- educated on high risk medication Problem:High Risk Medications Goal:Patient/caregive r will teach back high risk medication side effect and precaution education Completed patient educated on taking medication(s) as prescribed by provider. Do not stop medication or alter doses without speaking with your provider. Discuss medication effectiveness or side effect concerns with your provider and home care team. Only take opioids as prescribed, do not share your medications, and take proper precautions in storing and properly disposing of opioids once no longer needed. Possible side effects of opioid medication including sedation, decreased rate of breathing, and constipation. Report over sedation to prescribing provider and practice deep breathing techniques every hour while awake. Prevent constipation by increasing water and fiber intake, increasing activity as tolerated, and use stool softener(s) as prescribed. Antiplatelet- educated on high risk medication Problem:High Risk Medications Goal:Patient/caregive r will teach back high risk medication side effect and precaution education Completed patient educated on taking medication(s) as prescribed by provider. Do not stop medication or alter doses without speaking with your provider. Discuss medication effectiveness or side effect concerns with your provider and home care team. Discuss all medications you are taking, even [id number] medicines, with your provider and pharmacist since many drugs can interact with antiplatelet medications. If you forget to take a dose, DO NOT take a double dose. Take the missed dose as soon as possible on the same day. DO NOT take a double dose the next day to make up for the missed dose. Watch for signs of abnormal or excessive bleeding and bruising (refer to Bleeding Precautions education). Call your health care provider right away if you suspect something is wrong. Antibiotic- educated on high risk medication Problem:High Risk Medications Goal:Patient/caregive r will teach back high risk medication side effect and precaution education Completed patient educated on taking medication(s) as prescribed by provider. Do not stop medication or alter doses without speaking with your provider. Discuss medication effectiveness or side effect concerns with your provider and home care team. Take the full dispensed amount even if you start feeling better, as bacteria can become resistant to antibiotic treatment if you do not finish your prescription. Common side effects are upset stomach and diarrhea. Take your antibiotics with food unless otherwise indicated to help with indigestion. Taking an [id number] probiotic or eating yogurt with live and active cultures three times a day can help prevent antibiotic-associated diarrhea. Call your provider immediately if you develop rashes or hives as this could be a delayed allergic reaction. Seek emergency treatment if you develop severe allergic reaction symptoms such as mouth or tongue swelling. Instruct on ongoing discharge plan Problem:Discharge Goal:Manage discharge planning Completed Ongoing Discharge plan: Discharge plan discussed with patient including frequency and duration for home PT and plan for transition to: outpatient therapy. Instruct on importance of follow-up appts and continued monitoring with medical provider &/or chronic care clinic Problem:Discharge Goal:Manage discharge planning Completed Education provided on importance of compliance with follow-up appointment(s). Physical Therapy Therapeutic Exercises Problem:PT Impaired muscle performance and/or ROM Goal:Improved Muscle Performance and/or ROM Completed patient instructed on strengthening and range of motion exercises including - 10 reps of quad sets, gluteal sets and ankle pumps - 3 reps of seated knee flexion slides with a 10 second hold All exercises performed with verbal, tactile, visual and written cues for correct form. patient instructed to perform home exercise program twice a day which included the above exercises; ankle pumps to be performed every hour. Instruct on orthopedic precautions and weight bearing restrictions Description: Orthopedic precautions including left total knee: no knee flexed over pillow at rest. Weight bearing restrictions include: WBAT of involved extremity. Problem:PT Orthopedic Condition Goal:Manage Orthopedic Condition Completed patient instructed on orthopedic precautions and weight bearing status. Instruct on management of edema Problem:PT Orthopedic Condition Goal:Manage Orthopedic Condition Completed Instruct patient on management of edema including elevation of left toes above the level of the heart (with pillows lengthwise under leg while maintaining knee extension ROM) and ice. Instruct and educate on knowledge deficits Problem:PT Learning Assessment Goal:Demonstrate understanding of education Completed patient verbalize and/or demonstrate understanding of physical therapy education including orthopedic condition management, pain management, fall prevention strategies and home exercise program. Education methods include: verbal cues, tactile cues, written instructions, visual cues and teach back. Further education required to improve knowledge and compliance with orthopedic condition management, pain management, fall prevention strategies and home exercise program. . [facility] Visit Details Visit Type -PEN TESTER ROUTINE Discipline -Physical Therapy Problems Problem Description Start Date Status Goals Interve ntions Medication Education Disciplines: Skilled Services 11/14/2024 Active 1 goal linked to scheduled/document ed intervention 1 goal intervention scheduled/document ed in this visit Sepsis Disciplines: Skilled Services 11/14/2024 Active 1 goal linked to scheduled/document ed intervention 1 goal intervention scheduled/document ed in this visit Physician Specific Parameters Disciplines: Skilled Services 11/14/2024 Active 1 goal linked to scheduled/document ed intervention 1 goal intervention scheduled/document ed in this visit Risk for Falls Disciplines: Skilled Services 11/14/2024 Active 1 goal linked to scheduled/document ed intervention 1 goal intervention scheduled/document ed in this visit Pain Disciplines: Skilled Services 11/14/2024 Active 1 goal linked to scheduled/document ed intervention 1 goal intervention scheduled/document ed in this visit High Risk Medications Disciplines: Skilled Services 11/14/2024 Active 1 goal linked to scheduled/document ed intervention 1 goal intervention scheduled/document ed in this visit Discharge Disciplines: Skilled Services 11/14/2024 Active 1 goal linked to scheduled/document ed intervention 1 goal intervention scheduled/document ed in this visit PT Impaired muscle performance and/or ROM Disciplines: PT 11/14/2024 Active 1 goal linked to scheduled/document ed intervention 1 goal intervention scheduled/document ed in this visit PT Impaired gait Disciplines: PT 11/14/2024 Active 1 goal linked to scheduled/document ed intervention 1 goal intervention scheduled/document ed in this visit PT Orthopedic Condition Disciplines: PT 11/14/2024 Active 1 goal linked to scheduled/document ed intervention 4 goal interventions scheduled/document ed in this visit PT Learning Assessment Disciplines: PT 11/14/2024 Active 1 goal linked to scheduled/document ed intervention 1 goal intervention scheduled/document ed in this visit Goals Goal Associated Problem Outcome Goal Met? Visit Notes Patient/caregiver will demonstrate ability to obtain, store, identify and administer ordered medications, keep accurate medication list in home, and adhere to medication schedule Description: Patient/caregiver will demonstrate ability to obtain, store, identify and administer ordered medications, keep accurate medication list in home, and adhere to medication schedule by 01/12/25. Medication Education No Patient/caregiver will be able to identify and report symptoms of sepsis Description: Patient/caregiver will be able to identify signs/symptoms of sepsis infection and will verbalize actions to take if suspected by 01/12/25. Sepsis No Patient to maintain parameters within physician-specified ranges throughout certification period Physician Specific Parameters No Manage Risk for falls Description: Patient/caregiver will verbalize knowledge of individualized fall prevention strategies by 01/12/25. Risk for Falls No Manage Pain Description: Patient/caregiver will verbalize knowledge and understanding of appropriate techniques to control pain, including pain medication and non-pharmacological techniques. Patient will verbalize or demonstrate an acceptable level of pain as eviden aditi by a pain score of 3/10 and improvement in ability to perform activities of daily living to be achieved by 01/12/25. Pain No Patient/caregiver will teach back high risk medication side effect and precaution education Description: STG Patient/caregiver will verbalize understanding of high risk medication side effects and precautions to be achieved by 11/14/24. LTG Patient/caregiver will continue to verbalize understanding of high risk medication side effects and precautions throughout certification period. High Risk Medications No Manage discharge planning Description: Patient/caregiver will verbalize understanding of ongoing discharge plan provided related to disease management, arrangements for outpatient and/or community services, obtaining medications, supplies, and DME, as needed throu out certification period. Discharge No Improved Muscle Performance and/or ROM Description: LTG: Patient and/or caregiver will verbalize/demonstrate independence with home exercise program, to improve functional mobility, to be achieved by 12/03/24. LTG: Patient will demonstrate improved left knee active range of motion to 0-2-92 degrees, to meet functional goals, to be achieved by 12/03/24. PT Impaired muscle performance and/or ROM No Improved Gait Description: STG: Patient will demonstrate improved gait ability as evidenced by ambulation 100 feet with front wheeled walker independently with AD, in order to ambulate throughout her home, to be achieved by 11/26/24. LTG: Patient will demonstrate improved gait ability as evidenced by ambulation 50 feet with single point cane independently with AD, to return to safe household ambulation, in order to ambulate to the bathroom, to be achieved by 12/03/24. PT Impaired gait No Manage Orthopedic Condition Description: Improve patient and/or caregiver understanding of post surgical and/or non-surgical orthopedic intervention management as evidenced by patient and/or caregiver able to verbalize, demonstrate, and teach back instruction, to be achieved by 12/03/24. PT Orthopedic Condition No Demonstrate understanding of education Description: Patient and/or caregiver will understand educational instruction to be achieved by 12/03/24. PT Learning Assessment No Interventions Intervention Associated Problem/Goal Status Variance Visit Notes Medication Education Description: Evaluate/instruct patient/caregiver on obtaining, storing, identifying and administering ordered medications as well as keeping accurate medication list in the home and adhereing to medication schedule Problem:Medication Education Goal:Patient/caregive r will demonstrate ability to obtain, store, identify and administer ordered medications, keep accurate medication list in home, and adhere to medication schedule Completed Patient instructed on importance of keeping accurate medication list in home, adhering to medication schedule and how to order refills. Risk of Sepsis Description: Patient is at risk for sepsis. Monitor closely for s/s of sepsis. Problem:Sepsis Goal:Patient/caregive r will be able to identify and report symptoms of sepsis Completed SPO2 Description: Notify Dr. Frannie Vasquez if pulse ox is <92% at rest. Problem:Physician Specific Parameters Goal:Patient to maintain parameters within physician-specified ranges throughout certification period Completed Instruct on individual fall risk factors and strategies to prevent falls and injuries caused by falls. Problem:Risk for Falls Goal:Manage Risk for falls Completed PT: Patient instructed on Eliminating Environmental Hazards: Keep pets out of pathways Instruct on pain and instruct on strategies to control pain Problem:Pain Goal:Manage Pain Completed patient instructed on techniques to control pain including Pharmacological measures and Non-Pharmacological measures; positioning/elevation and use of thermal modalities, apply ice to affected area for the following prescribed frequency: prn. Opioids- educated on high risk medication Problem:High Risk Medications Goal:Patient/caregive r will teach back high risk medication side effect and precaution education Completed patient educated on taking medication(s) as prescribed by provider. Do not stop medication or alter doses without speaking with your provider. Discuss medication effectiveness or side effect concerns with your provider and home care team. Only take opioids as prescribed, do not share your medications, and take proper precautions in storing and properly disposing of opioids once no longer needed. Possible side effects of opioid medication including sedation, decreased rate of breathing, and constipation. Report over sedation to prescribing provider and practice deep breathing techniques every hour while awake. Prevent constipation by increasing water and fiber intake, increasing activity as tolerated, and use stool softener(s) as prescribed. Instruct on ongoing discharge plan Problem:Discharge Goal:Manage discharge planning Completed Ongoing Discharge plan: Discharge plan discussed with patient including frequency and duration for home PT and plan for transition to: outpatient therapy. Physical Therapy Therapeutic Exercises Problem:PT Impaired muscle performance and/or ROM Goal:Improved Muscle Performance and/or ROM Completed patient instructed on strengthening and range of motion exercises including ap,qs,gs,hip abd and add, saq w/ manual assist x's 10 each. step flexion stretch x's 10, seated heel slides x's 10 with verbal, visual and written cues for form and progressions. patient instructed to perform home exercise program twice a day which included above ex. Physical Therapy Gait Training Problem:PT Impaired gait Goal:Improved Gait Completed Gait training and instruction to patient on safe ambulation with front wheeled walker for 4x's10 feet with supervision, with verbal and visual cues for corrections of gait deviations including heel to toe pattern. Instruct on orthopedic precautions and weight bearing restrictions Description: Orthopedic precautions including left total knee: no knee flexed over pillow at rest. Weight bearing restrictions include: WBAT of involved extremity. Problem:PT Orthopedic Condition Goal:Manage Orthopedic Condition Completed patient instructed on orthopedic precautions. Instruct on management of edema Problem:PT Orthopedic Condition Goal:Manage Orthopedic Condition Completed Instruct patient on management of edema including elevation of LLE above the level of the heart and ice. Physical therapy to perform surgical incision/wound management Description: Removal of post-op dressing on 11/17/24. If no drainage is present, leave open to air; if drainage is present, cover with clean dressing and contact provider and PT nurse outreach case manager. Problem:PT Orthopedic Condition Goal:Manage Orthopedic Condition Completed Intervention completed this date. Instruct on self-management of post surgical and/or non-surgical orthopedic intervention Problem:PT Orthopedic Condition Goal:Manage Orthopedic Condition Completed patient instructed on incision care: no lotions,creams or rubbing, measures to avoid skin breakdown, signs and symptoms of infection, signs and symptoms of DVT/PE, follow provider guidance for showering , instructed on when to call provider and instructed on when to call 911. Instruct and educate on knowledge deficits Problem:PT Learning Assessment Goal:Demonstrate understanding of education Completed patient verbalize and/or demonstrate understanding of physical therapy education including pain management, integumentary and incision/wound care management and home exercise program. Education methods include: verbal cues, written instructions and visual cues. Further education required to improve knowledge and compliance with home exercise program. [facility] Visit Details Visit Type -PT ROUTINE Discipline -Physical Therapy Problems Problem Description Start Date Status Goals Interve ntions Sepsis Disciplines: Skilled Services 11/14/2024 Active 1 goal linked to scheduled/document ed intervention 1 goal intervention scheduled/document ed in this visit Physician Specific Parameters Disciplines: Skilled Services 11/14/2024 Active 1 goal linked to scheduled/document ed intervention 1 goal intervention scheduled/document ed in this visit Risk for Falls Disciplines: Skilled Services 11/14/2024 Active 1 goal linked to scheduled/document ed intervention 1 goal intervention scheduled/document ed in this visit PT Impaired muscle performance and/or ROM Disciplines: PT 11/14/2024 Active 1 goal linked to scheduled/document ed intervention 1 goal intervention scheduled/document ed in this visit PT Impaired mobility Disciplines: PT 11/14/2024 Active 2 goals linked to scheduled/document ed interventions 2 goal interventions scheduled/document ed in this visit PT Impaired gait Disciplines: PT 11/14/2024 Active 1 goal linked to scheduled/document ed intervention 1 goal intervention scheduled/document ed in this visit PT Orthopedic Condition Disciplines: PT 11/14/2024 Active 1 goal linked to scheduled/document ed intervention 3 goal interventions scheduled/document ed in this visit PT Learning Assessment Disciplines: PT 11/14/2024 Active 1 goal linked to scheduled/document ed intervention 1 goal intervention scheduled/document ed in this visit Goals Goal Associated Problem Outcome Goal Met? Visit Notes Patient/caregiver will be able to identify and report symptoms of sepsis Description: Patient/caregiver will be able to identify signs/symptoms of sepsis infection and will verbalize actions to take if suspected by 01/12/25. Sepsis No Patient to maintain parameters within physician-specified ranges throughout certification period Physician Specific Parameters No Manage Risk for falls Description: Patient/caregiver will verbalize knowledge of individualized fall prevention strategies by 01/12/25. Risk for Falls No Improved Muscle Performance and/or ROM Description: LTG: Patient and/or caregiver will verbalize/demonstrate independence with home exercise program, to improve functional mobility, to be achieved by 12/03/24. LTG: Patient will demonstrate improved left knee active range of motion to 0-2-92 degrees, to meet functional goals, to be achieved by 12/03/24. PT Impaired muscle performance and/or ROM No Improved Transfers Description: LTG: Patient will demonstrate safe transfers to/from bed, chair and shower/tub independently with AD, to be achieved by 12/03/24. PT Impaired mobility No Improved Bed Mobility Description: STG: Patient will demonstrate improved supine <> sit independently to be achieved by 11/26/24. PT Impaired mobility No Improved Gait Description: STG: Patient will demonstrate improved gait ability as evidenced by ambulation 100 feet with front wheeled walker independently with AD, in order to ambulate throughout her home, to be achieved by 11/26/24. LTG: Patient will demonstrate improved gait ability as evidenced by ambulation 50 feet with single point cane independently with AD, to return to safe household ambulation, in order to ambulate to the bathroom, to be achieved by 12/03/24. PT Impaired gait No Manage Orthopedic Condition Description: Improve patient and/or caregiver understanding of post surgical and/or non-surgical orthopedic intervention management as evidenced by patient and/or caregiver able to verbalize, demonstrate, and teach back instruction, to be achieved by 12/03/24. PT Orthopedic Condition No Demonstrate understanding of education Description: Patient and/or caregiver will understand educational instruction to be achieved by 12/03/24. PT Learning Assessment No Interventions Intervention Associated Problem/Goal Status Variance Visit Notes Risk of Sepsis Description: Patient is at risk for sepsis. Monitor closely for s/s of sepsis. Problem:Sepsis Goal:Patient/caregiver will be able to identify and report symptoms of sepsis Completed SPO2 Description: Notify Dr. Frannie Vasquez if pulse ox is <92% at rest. Problem:Physician Specific Parameters Goal:Patient to maintain parameters within physician-specified ranges throughout certification period Completed Instruct on individual fall risk factors and strategies to prevent falls and injuries caused by falls. Problem:Risk for Falls Goal:Manage Risk for falls Completed PT: Patient instructed on Eliminating Environmental Hazards: Keep pathways clear, Keep pets out of pathways, Remove unsafe rugs, Move furniture from pathways, Keep rooms and walkways well lit, Install hand rails/grab bars and Wear supportive shoes or non-skid socks Managing Impaired Functional Mobility: Use assistive device(s): front wheeled walker and single point cane Managing Pain Physical Therapy Therapeutic Exercises Problem:PT Impaired muscle performance and/or ROM Goal:Improved Muscle Performance and/or ROM Completed patient instructed on strengthening and range of motion exercises including ap,qs,gs,hip abd and add, saq w/ manual assist x's 10 each. step flexion stretch x's 10, seated heel slides x's 10 with verbal, visual and written cues for form and progressions. patient instructed to perform home exercise program twice a day which included above ex. supine passive knee ext x 10 reps seated knee flexion to tolerance - 50* Physical Therapy Transfer Training Problem:PT Impaired mobility Goal:Improved Transfers Completed Transfer training and instruction to patient on safe transfers to and from bed and chair with supervision and verbal cues for technique Physical Therapy Bed Mobility Training Problem:PT Impaired mobility Goal:Improved Bed Mobility Completed Bed mobility training and instruction to patient, including rolling and supine<>sit with supervision and verbal cues for technique . stayin away from the edge of the bed Physical Therapy Gait Training Problem:PT Impaired gait Goal:Improved Gait Completed Gait training and instruction to patient on safe ambulation with single point cane and envir supports for 10' x 6 feet with supervision, with verbal and visual cues for corrections of gait deviations including sequencing and heel toe pattern . Instruct on orthopedic precautions and weight bearing restrictions Description: Orthopedic precautions including left total knee: no knee flexed over pillow at rest. Weight bearing restrictions include: WBAT of involved extremity. Problem:PT Orthopedic Condition Goal:Manage Orthopedic Condition Completed patient instructed on orthopedic precautions and weight bearing restrictions. Instruct on management of edema Problem:PT Orthopedic Condition Goal:Manage Orthopedic Condition Completed Instruct patient on management of edema including elevation of LLE above the level of the heart and ice. Instruct on self-management of post surgical and/or non-surgical orthopedic intervention Problem:PT Orthopedic Condition Goal:Manage Orthopedic Condition Completed patient instructed on managagement of orthopedic condition, measures to avoid skin breakdown, staying well hydrated, eating foods with high protein, signs and symptoms of infection, signs and symptoms of DVT/PE, follow provider guidance for showering and instructed on when to call provider. Instruct and educate on knowledge deficits Problem:PT Learning Assessment Goal:Demonstrate understanding of education Completed patient verbalize and/or demonstrate understanding of physical therapy education including orthopedic condition management, pain management, fall prevention strategies, home safety, functional activity and home exercise program. Education methods include: verbal cues and written instructions. Further education required to improve knowledge and compliance with fall prevention strategies, home safety, functional activity and home exercise program. [facility] Visit Details Visit Type -PT ROUTINE Discipline -Physical Therapy Problems Problem Description Start Date Status Goals Interve ntions Sepsis Disciplines: Skilled Services 11/14/2024 Active 1 goal linked to scheduled/document ed intervention 1 goal intervention scheduled/document ed in this visit Physician Specific Parameters Disciplines: Skilled Services 11/14/2024 Active 1 goal linked to scheduled/document ed intervention 1 goal intervention scheduled/document ed in this visit Risk for Falls Disciplines: Skilled Services 11/14/2024 Active 1 goal linked to scheduled/document ed intervention 1 goal intervention scheduled/document ed in this visit Pain Disciplines: Skilled Services 11/14/2024 Active 1 goal linked to scheduled/document ed intervention 1 goal intervention scheduled/document ed in this visit PT Impaired muscle performance and/or ROM Disciplines: PT 11/14/2024 Active 1 goal linked to scheduled/document ed intervention 1 goal intervention scheduled/document ed in this visit PT Impaired mobility Disciplines: PT 11/14/2024 Active 2 goals linked to scheduled/document ed interventions 2 goal interventions scheduled/document ed in this visit PT Impaired gait Disciplines: PT 11/14/2024 Active 2 goals linked to scheduled/document ed interventions 2 goal interventions scheduled/document ed in this visit PT Orthopedic Condition Disciplines: PT 11/14/2024 Active 1 goal linked to scheduled/document ed intervention 3 goal interventions scheduled/document ed in this visit PT Learning Assessment Disciplines: PT 11/14/2024 Active 1 goal linked to scheduled/document ed intervention 1 goal intervention scheduled/document ed in this visit Goals Goal Associated Problem Outcome Goal Met? Visit Notes Patient/caregiver will be able to identify and report symptoms of sepsis Description: Patient/caregiver will be able to identify signs/symptoms of sepsis infection and will verbalize actions to take if suspected by 01/12/25. Sepsis No Patient to maintain parameters within physician-specified ranges throughout certification period Physician Specific Parameters No Manage Risk for falls Description: Patient/caregiver will verbalize knowledge of individualized fall prevention strategies by 01/12/25. Risk for Falls No Manage Pain Description: Patient/caregiver will verbalize knowledge and understanding of appropriate techniques to control pain, including pain medication and non-pharmacological techniques. Patient will verbalize or demonstrate an acceptable level of pain as eviden aditi by a pain score of 3/10 and improvement in ability to perform activities of daily living to be achieved by 01/12/25. Pain No Improved Muscle Performance and/or ROM Description: LTG: Patient and/or caregiver will verbalize/demonstrate independence with home exercise program, to improve functional mobility, to be achieved by 12/03/24. LTG: Patient will demonstrate improved left knee active range of motion to 0-2-92 degrees, to meet functional goals, to be achieved by 12/03/24. PT Impaired muscle performance and/or ROM No Improved Transfers Description: LTG: Patient will demonstrate safe transfers to/from bed, chair and shower/tub independently with AD, to be achieved by 12/03/24. PT Impaired mobility No Improved Bed Mobility Description: STG: Patient will demonstrate improved supine <> sit independently to be achieved by 11/26/24. PT Impaired mobility No Improved Stair Climbing Description: LTG: Patient will demonstrate improved stair negotiation as evidenced by ascend/descend exit steps or ramp without railing and with a cane with CG assistance, to safely exit home, to be achieved by 12/03/24. PT Impaired gait No Improved Gait Description: STG: Patient will demonstrate improved gait ability as evidenced by ambulation 100 feet with front wheeled walker independently with AD, in order to ambulate throughout her home, to be achieved by 11/26/24. LTG: Patient will demonstrate improved gait ability as evidenced by ambulation 50 feet with single point cane independently with AD, to return to safe household ambulation, in order to ambulate to the bathroom, to be achieved by 12/03/24. PT Impaired gait No Manage Orthopedic Condition Description: Improve patient and/or caregiver understanding of post surgical and/or non-surgical orthopedic intervention management as evidenced by patient and/or caregiver able to verbalize, demonstrate, and teach back instruction, to be achieved by 12/03/24. PT Orthopedic Condition No Demonstrate understanding of education Description: Patient and/or caregiver will understand educational instruction to be achieved by 12/03/24. PT Learning Assessment No Interventions Intervention Associated Problem/Goal Status Variance Visit Notes Risk of Sepsis Description: Patient is at risk for sepsis. Monitor closely for s/s of sepsis. Problem:Sepsis Goal:Patient/caregive r will be able to identify and report symptoms of sepsis Completed SPO2 Description: Notify Dr. Frannie Vasquez if pulse ox is <92% at rest. Problem:Physician Specific Parameters Goal:Patient to maintain parameters within physician-specified ranges throughout certification period Completed Instruct on individual fall risk factors and strategies to prevent falls and injuries caused by falls. Problem:Risk for Falls Goal:Manage Risk for falls Completed PT: Patient instructed on Eliminating Environmental Hazards: Keep pathways clear, Keep pets out of pathways, Remove unsafe rugs, Move furniture from pathways, Keep rooms and walkways well lit, Install hand rails/grab bars and Wear supportive shoes or non-skid socks Managing Impaired Functional Mobility: Use assistive device(s): single point cane Managing Pain Instruct on pain and instruct on strategies to control pain Problem:Pain Goal:Manage Pain Completed patient instructed on techniques to control pain including Pharmacological measures and Non-Pharmacological measures; rest, positioning/elevation and use of thermal modalities, apply ice to affected area Physical Therapy Therapeutic Exercises Problem:PT Impaired muscle performance and/or ROM Goal:Improved Muscle Performance and/or ROM Completed patient instructed on strengthening and range of motion exercises including ap,qs,gs,hip abd and add, saq w/ manual assist x's 15 each. step flexion stretch x's 10, seated heel slides x's 10 strap for passive assistance , dangling at EOB with verbal, visual and written cues for form and progressions. patient instructed to perform home exercise program twice a day which included above ex. supine passive knee ext x 5 min seated knee flexion A 69 P72 Physical Therapy Transfer Training Problem:PT Impaired mobility Goal:Improved Transfers Completed Transfer training and instruction to patient on safe transfers to and from bed, chair and toilet with independent Physical Therapy Bed Mobility Training Problem:PT Impaired mobility Goal:Improved Bed Mobility Completed Bed mobility training and instruction to patient, including supine<>sit and repositioning self with independent Physical Therapy Stair Training Problem:PT Impaired gait Goal:Improved Stair Climbing Completed Stair training and instruction to patient on safe stair climbing, ascend/descend 2 steps, with cane with supervision and verbal cues for technqiue . Physical Therapy Gait Training Problem:PT Impaired gait Goal:Improved Gait Completed Gait training and instruction to patient on safe ambulation with single point cane for 20' x 4 using environmental supports as well with supervision, with verbal cues for corrections of gait deviations including increasing stride length and emphasizing heel toe pattern . Instruct on orthopedic precautions and weight bearing restrictions Description: Orthopedic precautions including left total knee: no knee flexed over pillow at rest. Weight bearing restrictions include: WBAT of involved extremity. Problem:PT Orthopedic Condition Goal:Manage Orthopedic Condition Completed patient instructed on orthopedic precautions and weight bearing restrictions. Instruct on management of edema Problem:PT Orthopedic Condition Goal:Manage Orthopedic Condition Completed Instruct patient on management of edema including elevation of LLE above the level of the heart and ice. Instruct on self-management of post surgical and/or non-surgical orthopedic intervention Problem:PT Orthopedic Condition Goal:Manage Orthopedic Condition Completed patient instructed on managagement of orthopedic condition, measures to avoid skin breakdown, staying well hydrated, eating foods with high protein, signs and symptoms of infection and signs and symptoms of DVT/PE. Instruct and educate on knowledge deficits Problem:PT Learning Assessment Goal:Demonstrate understanding of education Completed patient verbalize and/or demonstrate understanding of physical therapy education including orthopedic condition management, surgical precautions, pain management, fall prevention strategies, home safety, functional activity and home exercise program. Education methods include: verbal cues and written instructions. Further education required to improve knowledge and compliance with fall prevention strategies, home safety, functional activity and home exercise program. [facility] Visit Details Visit Type -PT AGENCY DC W V ISIT Discipline -Physical Therapy Problems Problem Description Start Date Status Goals Interve ntions Medication Education Disciplines: Skilled Services 11/14/2024 Resolved on 11/29/2024 1 goal linked to scheduled/document ed intervention 1 goal intervention scheduled/document ed in this visit Sepsis Disciplines: Skilled Services 11/14/2024 Resolved on 11/29/2024 1 goal linked to scheduled/document ed intervention 1 goal intervention scheduled/document ed in this visit Declined Referral Disciplines: Skilled Services 11/14/2024 Resolved on 11/29/2024 1 goal linked to scheduled/document ed intervention Physician Specific Parameters Disciplines: Skilled Services 11/14/2024 Resolved on 11/29/2024 1 goal linked to scheduled/document ed intervention 1 goal intervention scheduled/document ed in this visit Risk for Falls Disciplines: Skilled Services 11/14/2024 Resolved on 11/29/2024 1 goal linked to scheduled/document ed intervention 1 goal intervention scheduled/document ed in this visit Pain Disciplines: Skilled Services 11/14/2024 Resolved on 11/29/2024 1 goal linked to scheduled/document ed intervention 1 goal intervention scheduled/document ed in this visit High Risk Medications Disciplines: Skilled Services 11/14/2024 Resolved on 11/29/2024 1 goal linked to scheduled/document ed intervention 3 goal interventions scheduled/document ed in this visit Discharge Disciplines: Skilled Services 11/14/2024 Resolved on 11/29/2024 1 goal linked to scheduled/document ed intervention 2 goal interventions scheduled/document ed in this visit PT Impaired muscle performance and/or ROM Disciplines: PT 11/14/2024 Resolved on 11/29/2024 1 goal linked to scheduled/document ed intervention 2 goal interventions scheduled/document ed in this visit PT Impaired mobility Disciplines: PT 11/14/2024 Resolved on 11/29/2024 2 goals linked to scheduled/document ed interventions 2 goal interventions scheduled/document ed in this visit PT Impaired gait Disciplines: PT 11/14/2024 Resolved on 11/29/2024 2 goals linked to scheduled/document ed interventions 2 goal interventions scheduled/document ed in this visit PT Impaired balance Disciplines: PT 11/14/2024 Resolved on 11/29/2024 1 goal linked to scheduled/document ed intervention PT Orthopedic Condition Disciplines: PT 11/14/2024 Resolved on 11/29/2024 1 goal linked to scheduled/document ed intervention 3 goal interventions scheduled/document ed in this visit PT Learning Assessment Disciplines: PT 11/14/2024 Resolved on 11/29/2024 1 goal linked to scheduled/document ed intervention 1 goal intervention scheduled/document ed in this visit [employer] Referral Disciplines: Skilled Services 11/14/2024 Resolved on 11/29/2024 1 goal linked to scheduled/document ed intervention Goals Goal Associated Problem Outcome Goal Met? Visit Notes Patient/caregiver will demonstrate ability to obtain, store, identify and administer ordered medications, keep accurate medication list in home, and adhere to medication schedule Description: Patient/caregiver will demonstrate ability to obtain, store, identify and administer ordered medications, keep accurate medication list in home, and adhere to medication schedule by 01/12/25. Medication Education Completed Yes Patient/caregiver will be able to identify and report symptoms of sepsis Description: Patient/caregiver will be able to identify signs/symptoms of sepsis infection and will verbalize actions to take if suspected by 01/12/25. Sepsis Completed Yes Patient has declined referred services Declined Referral Completed Yes Patient to maintain parameters within physician-specified ranges throughout certification period Physician Specific Parameters Completed Yes Manage Risk for falls Description: Patient/caregiver will verbalize knowledge of individualized fall prevention strategies by 01/12/25. Risk for Falls Completed Yes Manage Pain Description: Patient/caregiver will verbalize knowledge and understanding of appropriate techniques to control pain, including pain medication and non-pharmacological techniques. Patient will verbalize or demonstrate an acceptable level of pain as eviden aditi by a pain score of 3/10 and improvement in ability to perform activities of daily living to be achieved by 01/12/25. Pain Completed Yes Patient/caregiver will teach back high risk medication side effect and precaution education Description: STG Patient/caregiver will verbalize understanding of high risk medication side effects and precautions to be achieved by 11/14/24. LTG Patient/caregiver will continue to verbalize understanding of high risk medication side effects and precautions throughout certification period. High Risk Medications Completed Yes Manage discharge planning Description: Patient/caregiver will verbalize understanding of ongoing discharge plan provided related to disease management, arrangements for outpatient and/or community services, obtaining medications, supplies, and DME, as needed throunm cancer center certification period. Discharge Completed Yes Improved Muscle Performance and/or ROM Description: LTG: Patient and/or caregiver will verbalize/demonstrate independence with home exercise program, to improve functional mobility, to be achieved by 12/03/24. LTG: Patient will demonstrate improved left knee active range of motion to 0-2-92 degrees, to meet functional goals, to be achieved by 12/03/24. PT Impaired muscle performance and/or ROM Appropriate For Discharge Yes Improved Transfers Description: LTG: Patient will demonstrate safe transfers to/from bed, chair and shower/tub independently with AD, to be achieved by 12/03/24. PT Impaired mobility Completed Yes Improved Bed Mobility Description: STG: Patient will demonstrate improved supine <> sit independently to be achieved by 11/26/24. PT Impaired mobility Completed Yes Improved Stair Climbing Description: LTG: Patient will demonstrate improved stair negotiation as evidenced by ascend/descend exit steps or ramp without railing and with a cane with CG assistance, to safely exit home, to be achieved by 12/03/24. PT Impaired gait Completed Yes Improved Gait Description: STG: Patient will demonstrate improved gait ability as evidenced by ambulation 100 feet with front wheeled walker independently with AD, in order to ambulate throughout her home, to be achieved by 11/26/24. LTG: Patient will demonstrate improved gait ability as evidenced by ambulation 50 feet with single point cane independently with AD, to return to safe household ambulation, in order to ambulate to the bathroom, to be achieved by 12/03/24. PT Impaired gait Completed Yes Improved Balance Description: LTG: Patient will demonstrate improved standing balance to meet functional goals as evidenced by patient reporting zero falls during home care admission to be achieved by 12/03/24 PT Impaired balance Completed Yes Manage Orthopedic Condition Description: Improve patient and/or caregiver understanding of post surgical and/or non-surgical orthopedic intervention management as evidenced by patient and/or caregiver able to verbalize, demonstrate, and teach back instruction, to be achieved by 12/03/24. PT Orthopedic Condition Completed Yes Demonstrate understanding of education Description: Patient and/or caregiver will understand educational instruction to be achieved by 12/03/24. PT Learning Assessment Completed Yes Patient will be referred to additional discipline as needed [employer] Referral Completed Yes Interventions Intervention Associated Problem/Goal Status Variance Visit Notes Medication Education Description: Evaluate/instruct patient/caregiver on obtaining, storing, identifying and administering ordered medications as well as keeping accurate medication list in the home and adhereing to medication schedule Problem:Medication Education Goal:Patient/caregive r will demonstrate ability to obtain, store, identify and administer ordered medications, keep accurate medication list in home, and adhere to medication schedule Completed Patient instructed on adhering to medication schedule. Risk of Sepsis Description: Patient is at risk for sepsis. Monitor closely for s/s of sepsis. Problem:Sepsis Goal:Patient/caregive r will be able to identify and report symptoms of sepsis Completed SPO2 Description: Notify Dr. Frannie Vasquez if pulse ox is <92% at rest. Problem:Physician Specific Parameters Goal:Patient to maintain parameters within physician-specified ranges throughout certification period Completed Instruct on individual fall risk factors and strategies to prevent falls and injuries caused by falls. Problem:Risk for Falls Goal:Manage Risk for falls Completed PT: Patient instructed on Eliminating Environmental Hazards: Keep pathways clear, Keep pets out of pathways and Wear supportive shoes or non-skid socks Managing Impaired Functional Mobility: Use assistive device(s): single point cane as needed Instruct on pain and instruct on strategies to control pain Problem:Pain Goal:Manage Pain Completed patient instructed on techniques to control pain including Pharmacological measures and Non-Pharmacological measures; rest, positioning/elevation, use of DME/assistive devices and use of thermal modalities, apply ice to affected area for the following prescribed frequency: PRN. Opioids- educated on high risk medication Problem:High Risk Medications Goal:Patient/caregive r will teach back high risk medication side effect and precaution education Completed patient educated on taking medication(s) as prescribed by provider. Do not stop medication or alter doses without speaking with your provider. Discuss medication effectiveness or side effect concerns with your provider and home care team. Only take opioids as prescribed, do not share your medications, and take proper precautions in storing and properly disposing of opioids once no longer needed. Possible side effects of opioid medication including sedation, decreased rate of breathing, and constipation. Report over sedation to prescribing provider and practice deep breathing techniques every hour while awake. Prevent constipation by increasing water and fiber intake, increasing activity as tolerated, and use stool softener(s) as prescribed. Antiplatelet- educated on high risk medication Problem:High Risk Medications Goal:Patient/caregive r will teach back high risk medication side effect and precaution education Completed patient educated on taking medication(s) as prescribed by provider. Do not stop medication or alter doses without speaking with your provider. Discuss medication effectiveness or side effect concerns with your provider and home care team. Discuss all medications you are taking, even sygn-cbb-epslztj medicines, with your provider and pharmacist since many drugs can interact with antiplatelet medications. If you forget to take a dose, DO NOT take a double dose. Take the missed dose as soon as possible on the same day. DO NOT take a double dose the next day to make up for the missed dose. Watch for signs of abnormal or excessive bleeding and bruising (refer to Bleeding Precautions education). Call your health care provider right away if you suspect something is wrong. Antibiotic- educated on high risk medication Problem:High Risk Medications Goal:Patient/caregive r will teach back high risk medication side effect and precaution education Completed patient educated on taking medication(s) as prescribed by provider. Do not stop medication or alter doses without speaking with your provider. Discuss medication effectiveness or side effect concerns with your provider and home care team. Take the full dispensed amount even if you start feeling better, as bacteria can become resistant to antibiotic treatment if you do not finish your prescription. Common side effects are upset stomach and diarrhea. Take your antibiotics with food unless otherwise indicated to help with indigestion. Taking an ceey-zeh-icodwoz probiotic or eating yogurt with live and active cultures three times a day can help prevent antibiotic-associated diarrhea. Call your provider immediately if you develop rashes or hives as this could be a delayed allergic reaction. Seek emergency treatment if you develop severe allergic reaction symptoms such as mouth or tongue swelling. Instruct on final discharge plan and deliver discharge instructions Problem:Discharge Goal:Manage discharge planning Completed Delivered Discharge plan: Discharge plan discussed with patient for plan for transition to: outpatient therapy Instruct on importance of follow-up appts and continued monitoring with medical provider &/or chronic care clinic Problem:Discharge Goal:Manage discharge planning Completed Education provided on importance of compliance with follow-up appointment(s). Application of Physical Therapy Manual Therapy Techniques and/or Modalities Problem:PT Impaired muscle performance and/or ROM Goal:Improved Muscle Performance and/or ROM Completed Instructed patient on AAROM with knee flexion x10 reps and with use of sheet/towel assist. Instruct for patient to complete this 3x daily with sheet assist. She verbalized understanding of instructions. Physical Therapy Therapeutic Exercises Problem:PT Impaired muscle performance and/or ROM Goal:Improved Muscle Performance and/or ROM Completed patient instructed to continue with L knee strengthening and range of motion exercises 3x daily and walking program. Patient verbalized understanding of instructions. Instructed patient/caregiver on strengthening/range of motion, exercises with supine: ankle pumps, quad sets, glute sets, SAQ, heel slides, SLR, and hip abduction x10 reps LLE. Verbal cues provided for proper technique and pacing exercises. Completed seated heel slides with sheet assist x10 reps. Instructed patient and caregiver to perform HEP 3 x daily in order to continue to improve ROM and strength for functional mobility. Physical Therapy Transfer Training Problem:PT Impaired mobility Goal:Improved Transfers Completed Transfer training and instruction to patient on safe transfers to and from bed and chair with independent, no AD. Physical Therapy Bed Mobility Training Problem:PT Impaired mobility Goal:Improved Bed Mobility Completed Bed mobility training and instruction to patient, including supine<>sit with independent. Physical Therapy Stair Training Problem:PT Impaired gait Goal:Improved Stair Climbing Completed Stair training and instruction to patient on safe stair climbing, ascend/descend 2 steps, with railing with independent. Physical Therapy Gait Training Problem:PT Impaired gait Goal:Improved Gait Completed Gait training and instruction to patient on safe ambulation with no device for 100 feet with independent, with verbal cues for corrections of gait deviations including increase L knee flexion with swing phase and even stride length. Patient declined need to use SPC today. Instruct on orthopedic precautions and weight bearing restrictions Description: Orthopedic precautions including left total knee: no knee flexed over pillow at rest. Weight bearing restrictions include: WBAT of involved extremity. Problem:PT Orthopedic Condition Goal:Manage Orthopedic Condition Completed patient instructed on orthopedic precautions and weight bearing restrictions. Instruct on management of edema Problem:PT Orthopedic Condition Goal:Manage Orthopedic Condition Completed Instruct patient on management of edema including elevation of LLE above the level of the heart and ice. Instruct on self-management of post surgical and/or non-surgical orthopedic intervention Problem:PT Orthopedic Condition Goal:Manage Orthopedic Condition Completed patient instructed on staying well hydrated, eating foods with high protein, signs and symptoms of infection and instructed on when to call provider. Instruct and educate on knowledge deficits Problem:PT Learning Assessment Goal:Demonstrate understanding of education Completed patient verbalize and/or demonstrate understanding of physical therapy education including pain management, fall prevention strategies, functional activity and home exercise program. Education methods include: verbal cues and teach back. documented in this encounter [facility] for referral (narrative)* Diagnostic Procedure Only (Routine) - Authorized Specialty Diagnoses / Procedures Referred By Eliel lópez Referred To Contact BR IMAGING Diagnoses Encounter for screening mammogram for breast cancer Procedures NORBERT SCREENING SCREENING MAMMOGRAPHY BI 2-VIEW BREAST INC CAD Laura Robertson MD [address] [place] [address] [facility] [address] [place] [address] Referral ID Status Reason Start Date Expiration Date Visits Requested Visits Authorized [id number] Authorized Auto-Generat ed Referral 01/22/2022 02/21/2023 1 1 [facility] for referral (narrative)* Diagnostic Procedure Only (Routine) - Closed Specialty Diagnoses / Procedures Referred By Eliel Referred To Contact XR IMAGING Diagnoses Foot sprain, left, initial encounter Procedures XR FOOT GENERAL 3V AP/LAT/OBL LEFT RADEX FOOT COMPLETE MINIMUM 3 VIEWS Joni Marroquin [address] [place] [address] Xr Imaging Referral ID Status Reason Start Date Expiration Date V isits Requested Visits Authorized [id number] Closed Auto-Generate d Referral 09/25/2022 10/25/2023 1 1 [facility] for referral (narrative)* Diagnostic Procedure Only (Routine) - Authorized Specialty Diagnoses / Procedures Referred By Eliel Referred To Contact XR IMAGING Diagnoses Closed nondisplaced fracture of distal phalanx of left great toe with routine healing, subsequent encounter Procedures XR FOOT GENERAL 3V AP/LAT/OBL LEFT RADEX FOOT COMPLETE MINIMUM 3 VIEWS Joni Marroquin [address] [place] [address] Xr Imaging Referral ID Status Reason Start Date Expiration Date Visits Requested Visits Authorized [id number] Authorized Auto-Generat ed Referral 10/01/2022 10/31/2023 1 [facility] Diagnostic Procedure Only (Routine) - Authorized Specialty Diagnoses / Procedures Referred By Contac t Referred To Contact XR IMAGING Diagnoses Other osteoarthritis of spine, cervical region Upper back pain Procedures XR THORACIC GENERAL 3V AP/LAT/SWIMMERS RADEX SPINE THORACIC 3 VIEWS Michelle Simpson APRN.BUILDING MAINTENANCE SUPERVISOR [id number] [id number] Xr Imaging Referral ID Status Reason Start Date Expiration Date Visits Requested Visits Authorized [id number] Authorized Auto-Generat ed Referral 11/07/2022 12/07/2023 1 1 * Diagnostic Procedure Only (Routine) - Authorized Specialty Diagnoses / Procedures Referred By Contac t Referred To Contact XR IMAGING Diagnoses Other osteoarthritis of spine, cervical region Procedures XR CERV OTHER 4V AP/LAT/OBL RADEX SPINE CERVICAL 4 OR 5 VIEWS Michelle Simpson, [employer] CONSULTANT.BUILDING MAINTENANCE SUPERVISOR [address] [id number] Xr Imaging Referral ID Status Reason Start Date Expiration Date Visits Requested Visits Authorized [id number] Authorized Auto-Generat ed Referral 11/07/2022 12/07/2023 1 1 * Consult, Test, Treat (Routine) - Authorized Specialty Diagnoses / Procedures Referred By Contac t Referred To Contact [facility] [place] Diagnoses Other osteoarthritis of spine, cervical region Procedures CONSULT TO [facility] OFFICE/OUTPATIENT NEW HIGH MDM 60-74 MINUTES Michelle Simpson APRN.BUILDING MAINTENANCE SUPERVISOR [address] [phone] Referral ID Status Reason Start Date Expiration Date Visits Requested Visits Authorized [id number] Authorized PCP Requested Referral 11/07/2022 11/07/2023 1 1 [facility] for referral (narrative)* Diagnostic Procedure Only (Urgent) - Closed Specialty Diagnoses / Procedures Referred By Contac t Referred To Contact XR IMAGING Diagnoses Pain of right lower leg Procedures XR TIBIA FIBULA 2V AP/LAT RIGHT RADIOLOGIC EXAMINATION TIBIA & FIBULA 2 VIEWS Becky Zamarripa APRN.BUILDING MAINTENANCE SUPERVISOR [address] [place] [address] Xr Imaging Referral ID Status Reason Start Date Expiration Date V isits Requested Visits Authorized [id number] Closed Auto-Generate d Referral 02/06/2023 03/07/2024 1 1 * Diagnostic Procedure Only (Urgent) - Closed Specialty Diagnoses / Procedures Referred By Contac t Referred To Contact XR IMAGING Diagnoses Acute right hip pain Procedures XR HIP GENERAL 3V PELV/AP/LAT RIGHT RADEX HIP UNILATERAL WITH PELVIS 2-3 VIEWS Becky Zamarripa APRN.BUILDING MAINTENANCE SUPERVISOR [address] [place] [address] Xr Imaging Referral ID Status Reason Start Date Expiration Date V isits Requested Visits Authorized [id number] Closed Auto-Generate d Referral 02/06/2023 03/07/2024 1 1 * Diagnostic Procedure Only (Urgent) - Closed Specialty Diagnoses / Procedures Referred By Contac t Referred To Contact XR IMAGING Diagnoses Sciatica, right side Procedures XR LUMBAR GENERAL 3V AP/LAT/L5-S1 RADEX SPINE LUMBOSACRAL 2/3 VIEWS Becky Zamarripa APRN.BUILDING MAINTENANCE SUPERVISOR [address] [place] [address] Xr Imaging Referral ID Status Reason Start Date Expiration Date V isits Requested Visits Authorized [id number] Closed Auto-Generate d Referral 02/06/2023 03/07/2024 1 1 [facility] for referral (narrative)* Diagnostic Procedure Only (Urgent) - Authorized Specialty Diagnoses / Procedures Referred By Contac t Referred To Contact US IMAGING Diagnoses Leg swelling Procedures US DVT LOWER BILATERAL DUP-SCAN XTR VEINS COMPLETE BILATERAL STUDY Demetria Aquino APRN.BUILDING MAINTENANCE SUPERVISOR [address] [place] [address] Us Imaging Referral ID Status Reason Start Date Expiration Date Visits Requested Visits Authorized [id number] Authorized Auto-Generat ed Referral 03/04/2023 04/02/2024 1 1 [facility] for referral (narrative)* Diagnostic Procedure Only (Routine) - Closed Specialty Diagnoses / Procedures Referred By Contac t Referred To Contact XR IMAGING Diagnoses Foot sprain, left, initial encounter Procedures XR FOOT GENERAL 3V AP/LAT/OBL LEFT RADEX FOOT COMPLETE MINIMUM 3 VIEWS Joni Marroquin [address] [place] [address] [place] [address] Referral ID Status Reason Start Date Expiration Date V isits Requested Visits Authorized [id number] Closed Auto-Generate d Referral 09/25/2022 10/25/2023 1 1 [facility] for referral (narrative)* Diagnostic Procedure Only (Urgent) - Closed Specialty Diagnoses / Procedures Referred By Contac t Referred To Contact US IMAGING Diagnoses Leg swelling Procedures US DVT LOWER BILATERAL DUP-SCAN XTR VEINS COMPLETE BILATERAL STUDY Demetria Aquino APRN.BUILDING MAINTENANCE SUPERVISOR [address] [place] [address] [place] [address] Referral ID Status Reason Start Date Expiration Date V isits Requested Visits Authorized [id number] Closed Auto-Generate d Referral 03/04/2023 04/02/2024 1 1 [facility] for referral (narrative)* Diagnostic Procedure Only (Routine) - Authorized Specialty Diagnoses / Procedures Referred By Contac t Referred To Contact XR IMAGING Diagnoses Osteopenia of multiple sites Procedures DXA - VFA ASSESS ONLY VERTEBRAL FRACTURE [place] [address] [place] [address] [place] [address] Referral ID Status Reason Start Date Expiration Date Visits Requested Visits Authorized [id number] Authorized Auto-Generat ed Referral 09/11/2023 08/13/2024 1 1 [facility] for referral (narrative)* Diagnostic Procedure Only (Routine) - Authorized Specialty Diagnoses / Procedures Referred By Contac t Referred To Contact BR IMAGING Diagnoses Encounter for screening mammogram for breast cancer Procedures NORBERT SCREENING SCREENING MAMMOGRAPHY BI 2-VIEW BREAST INC CAD Laura Robertson MD [address] [place] [address] Br Imaging [address] [place] [address] Referral ID Status Reason Start Date Expiration Date Visits Requested Visits Authorized [id number] Authorized Auto-Generat ed Referral 12/16/2023 01/14/2025 1 1 [facility] for referral (narrative)* Diagnostic Procedure Only (Routine) - Closed Specialty Diagnoses / Procedures Referred By Contac t Referred To Contact XR IMAGING Diagnoses Pain Procedures XR KNEE GENERAL 4V AP BOTH/PA BOTH/LAT/MERC BILATERAL RADIOLOGIC EXAM KNEE COMPLETE 4/MORE VIEWS Nydia Wade PA-C [address] [place] [address] [place] [address] Referral ID Status Reason Start Date Expiration Date V isits Requested Visits Authorized [id number] Closed Auto-Generate d Referral 11/19/2023 12/18/2024 1 1 [facility] for referral (narrative)* Diagnostic Procedure Only (Urgent) - Closed Specialty Diagnoses / Procedures Referred By Contac t Referred To Contact XR IMAGING Diagnoses Pain of right lower leg Procedures XR TIBIA FIBULA 2V AP/LAT RIGHT RADIOLOGIC EXAMINATION TIBIA & FIBULA 2 VIEWS Becky Zamarripa APRN.BUILDING MAINTENANCE SUPERVISOR [address] [place] [address] [place] [address] Referral ID Status Reason Start Date Expiration Date V isits Requested Visits Authorized [id number] Closed Auto-Generate d Referral 02/06/2023 03/07/2024 1 1 * Diagnostic Procedure Only (Urgent) - Closed Specialty Diagnoses / Procedures Referred By Contac t Referred To Contact XR IMAGING Diagnoses Acute right hip pain Procedures XR HIP GENERAL 3V PELV/AP/LAT RIGHT RADEX HIP UNILATERAL WITH PELVIS 2-3 VIEWS Becky Zamarripa APRN.BUILDING MAINTENANCE SUPERVISOR [address] [place] [address] [place] [address] Referral ID Status Reason Start Date Expiration Date V isits Requested Visits Authorized [id number] Closed Auto-Generate d Referral 02/06/2023 03/07/2024 1 1 * Diagnostic Procedure Only (Urgent) - Closed Specialty Diagnoses / Procedures Referred By Contac t Referred To Contact XR IMAGING Diagnoses Sciatica, right side Procedures XR LUMBAR GENERAL 3V AP/LAT/L5-S1 RADEX SPINE LUMBOSACRAL 2/3 VIEWS Becky Zamarripa APRN.BUILDING MAINTENANCE SUPERVISOR [address] [place] [address] [place] [address] Referral ID Status Reason Start Date Expiration Date V isits Requested Visits Authorized [id number] Closed Auto-Generate d Referral 02/06/2023 03/07/2024 1 1 [facility] for referral (narrative)* Diagnostic Procedure Only (Routine) - Closed Specialty Diagnoses / Procedures Referred By Contac t Referred To Contact XR IMAGING Diagnoses Other osteoarthritis of spine, cervical region Upper back pain Procedures XR THORACIC GENERAL 3V AP/LAT/SWIMMERS RADEX SPINE THORACIC 3 VIEWS Michelle Simpson, CISCO CONSULTANT.BUILDING MAINTENANCE SUPERVISOR [address] [place] [phone] [place] [address] Referral ID Status Reason Start Date Expiration Date V isits Requested Visits Authorized [id number] Closed Auto-Generate d Referral 11/07/2022 12/07/2023 1 1 * Diagnostic Procedure Only (Routine) - Closed Specialty Diagnoses / Procedures Referred By Contac t Referred To Contact XR IMAGING Diagnoses Other osteoarthritis of spine, cervical region Procedures XR CERV OTHER 4V AP/LAT/OBL RADEX SPINE CERVICAL 4 OR 5 VIEWS Michelle Simpson, CISCO CONSULTANT.BUILDING MAINTENANCE SUPERVISOR [address] [place] [phone] [place] [address] Referral ID Status Reason Start Date Expiration Date V isits Requested Visits Authorized [id number] Closed Auto-Generate d Referral 11/07/2022 12/07/2023 1 1 * Diagnostic Procedure Only (Routine) - Closed Specialty Diagnoses / Procedures Referred By Contac t Referred To Contact XR IMAGING Diagnoses Closed nondisplaced fracture of distal phalanx of left great toe with routine healing, subsequent encounter Procedures XR FOOT GENERAL 3V AP/LAT/OBL LEFT RADEX FOOT COMPLETE MINIMUM 3 VIEWS Joni Marroquin [address] [place] [address] [place] [address] Referral ID Status Reason Start Date Expiration Date V isits Requested Visits Authorized [id number] Closed Auto-Generate d Referral 10/01/2022 10/31/2023 1 1 [facility] for referral (narrative)* Diagnostic Procedure Only (Urgent) - Closed Specialty Diagnoses / Procedures Referred By Contac t Referred To Contact XR IMAGING Diagnoses Foot injury, left, initial encounter Procedures XR FOOT GENERAL 3V AP/LAT/OBL LEFT RADEX FOOT COMPLETE MINIMUM 3 VIEWS Tamir Fitzpatrick APRN.CNP [address] [place] [address] [place] [address] Referral ID Status Reason Start Date Expiration Date V isits Requested Visits Authorized [id number] Closed Auto-Generate d Referral 08/13/2022 09/12/2023 1 1 [facility] for referral (narrative)* Diagnostic Procedure Only (Urgent) - Closed Specialty Diagnoses / Procedures Referred By Contac t Referred To Contact XR IMAGING Diagnoses Pain in both wrists Procedures XR WRIST GENERAL 3V PA/LAT/OBL BILATERAL RADEX WRIST COMPLETE MINIMUM 3 VIEWS Cecy Duke PA-C [address] [place] [address] [place] [address] Referral ID Status Reason Start Date Expiration Date V isits Requested Visits Authorized [id number] Closed Auto-Generate d Referral 11/27/2021 12/27/2022 1 1 [facility] for referral (narrative)* Diagnostic Procedure Only (Routine) - Authorized Specialty Diagnoses / Procedures Referred By Contac t Referred To Contact US IMAGING Diagnoses Thyroid cancer (HCC) Procedures US CERVICAL LYMPH NODE MAPPING US SOFT TISSUE HEAD & NECK REAL TIME IMGE Alberto Ramirez MD [address] [place] [address] [place] [address] Referral ID Status Reason Start Date Expiration Date Visits Requested Visits Authorized [id number] Authorized Auto-Generat ed Referral 08/09/2024 09/08/2025 1 1 [facility] for referral (narrative)* Diagnostic Procedure Only (Routine) - Authorized Specialty Diagnoses / Procedures Referred By Contac t Referred To Contact XR IMAGING Diagnoses S/P total knee arthroplasty, right Procedures XR KNEE POST OP 3V AP/LAT/MERCHANT RIGHT RADIOLOGIC EXAMINATION KNEE 3 VIEWS Nathaniel Vasquez MD [address] [place] [address] [place] [address] Referral ID Status Reason Start Date Expiration Date Visits Requested Visits Authorized [id number] Authorized Auto-Generat ed Referral 09/28/2025 1 1 [facility] for referral (narrative)* Diagnostic Procedure Only (Routine) - Closed Specialty Diagnoses / Procedures Referred By Contac t Referred To Contact US IMAGING Diagnoses Calculus of gallbladder without cholecystitis without obstruction Upper abdominal pain Procedures US ABD RIGHT UPPER QUADRANT US ABDOMINAL REAL TIME W/IMAGE LIMITED Salinas Samuel APRN.CNP [address] [place] [address] [place] [address] Referral ID Status Reason Start Date Expiration Date V isits Requested Visits Authorized [id number] Closed Auto-Generate d Referral 09/30/2024 10/30/2025 1 1 [facility] for referral (narrative)No reason for referral information availableWFirelands [facility] Work Phone: [facility] for visit Narrative* Diagnostic Procedure Only (Routine) - Closed Specialty Diagnoses / Procedures Referred By Contac t Referred To Contact XR IMAGING Diagnoses Foot sprain, left, initial encounter Procedures XR FOOT GENERAL 3V AP/LAT/OBL LEFT RADEX FOOT COMPLETE MINIMUM 3 VIEWS Joni Marroquin [address] [place] [address] [place] [address] Referral ID Status Reason Start Date Expiration Date V isits Requested Visits Authorized [id number] Closed Auto-Generate d Referral 09/25/2022 10/25/2023 1 1 [facility] for visit Narrative* Diagnostic Procedure Only (Routine) - Closed Specialty Diagnoses / Procedures Referred By Contac t Referred To Contact XR IMAGING Diagnoses Pain Procedures XR KNEE GENERAL 4V AP BOTH/PA BOTH/LAT/MERC BILATERAL RADIOLOGIC EXAM KNEE COMPLETE 4/MORE VIEWS Nydia Wade PA-C [address] [place] [address] [place] [address] Referral ID Status Reason Start Date Expiration Date V isits Requested Visits Authorized [id number] Closed Auto-Generate d Referral 11/19/2023 12/18/2024 1 1 [facility] for visit Narrative* Diagnostic Procedure Only (Urgent) - Closed Specialty Diagnoses / Procedures Referred By Contac t Referred To Contact XR IMAGING Diagnoses Pain of right lower leg Procedures XR TIBIA FIBULA 2V AP/LAT RIGHT RADIOLOGIC EXAMINATION TIBIA & FIBULA 2 VIEWS Becky Zamarripa, CISCO CONSULTANT.BUILDING MAINTENANCE SUPERVISOR [address] [place] [address] [place] [address] Referral ID Status Reason Start Date Expiration Date V isits Requested Visits Authorized [id number] Closed Auto-Generate d Referral 02/06/2023 03/07/2024 1 1 [facility] for visit Narrative* Diagnostic Procedure Only (Routine) - Closed Specialty Diagnoses / Procedures Referred By Contac t Referred To Contact XR IMAGING Diagnoses Other osteoarthritis of spine, cervical region Upper back pain Procedures XR THORACIC GENERAL 3V AP/LAT/SWIMMERS RADEX SPINE THORACIC 3 VIEWS Michelle Simpson, CISCO CONSULTANT.BUILDING MAINTENANCE SUPERVISOR [address] [place] [address] [place] [address] Referral ID Status Reason Start Date Expiration Date V isits Requested Visits Authorized [id number] Closed Auto-Generate d Referral 11/07/2022 12/07/2023 1 1 [facility] for visit Narrative* Diagnostic Procedure Only (Routine) - Closed Specialty Diagnoses / Procedures Referred By Contac t Referred To Contact XR IMAGING Diagnoses Closed nondisplaced fracture of distal phalanx of left great toe with routine healing, subsequent encounter Procedures XR FOOT GENERAL 3V AP/LAT/OBL LEFT RADEX FOOT COMPLETE MINIMUM 3 VIEWS Joni Marroquin [address] [place] [address] [place] [address] Referral ID Status Reason Start Date Expiration Date V isits Requested Visits Authorized [id number] Closed Auto-Generate d Referral 10/01/2022 10/31/2023 1 1 [facility] for visit Narrative* Diagnostic Procedure Only (Urgent) - Closed Specialty Diagnoses / Procedures Referred By Contac t Referred To Contact XR IMAGING Diagnoses Foot injury, left, initial encounter Procedures XR FOOT GENERAL 3V AP/LAT/OBL LEFT RADEX FOOT COMPLETE MINIMUM 3 VIEWS Tamir Fitzpatrick APRN.BUILDING MAINTENANCE SUPERVISOR [address] [facility] [place] [address] [place] [address] Referral ID Status Reason Start Date Expiration Date V isits Requested Visits Authorized [id number] Closed Auto-Generate d Referral 08/13/2022 09/12/2023 1 1 [facility] for visit Narrative* Diagnostic Procedure Only (Urgent) - Closed Specialty Diagnoses / Procedures Referred By Contac t Referred To Contact XR IMAGING Diagnoses Pain in both wrists Procedures XR WRIST GENERAL 3V PA/LAT/OBL BILATERAL RADEX WRIST COMPLETE MINIMUM 3 VIEWS Cecy Duke, PA-C [address] [place] [address] [place] [address] Referral ID Status Reason Start Date Expiration Date V isits Requested Visits Authorized [id number] Closed Auto-Generate d Referral 11/27/2021 12/27/2022 1 1 [facility] for visit Narrative* Diagnostic Procedure Only (Routine) - Closed Specialty Diagnoses / Procedures Referred By Contac t Referred To Contact XR IMAGING Diagnoses S/P total knee arthroplasty, right Procedures XR KNEE POST OP 3V AP/LAT/MERCHANT RIGHT RADIOLOGIC EXAMINATION KNEE 3 VIEWS Nathaniel Vasquez MD [address] [place] [address] [place] [address] Referral ID Status Reason Start Date Expiration Date V isits Requested Visits Authorized [id number] Closed Auto-Generate d Referral 08/29/2024 09/28/2025 1 1 [facility] for visit Narrative* MRI/CT (Routine) - Closed Specialty Diagnoses / Procedures Referred By Contac t Referred To Contact CT IMAGING Diagnoses Primary osteoarthritis of left knee Preoperative examination Procedures CT KNEE WO IVCON LEFT CT LOWER EXTREMITY W/O CONTRAST MATERIAL Nathaniel Vasquez MD [address] [place] [address] Phone: tel: fax: [place] [address] Referral ID Status Reason Start Date Expiration Date V isits Requested Visits Authorized [id number] Closed Auto-Generate d Referral 10/05/2024 11/04/2025 1 1 [facility] for visit Narrative* Auth/Cert (Routine) Specialty Diagnoses / Procedures [facility] [address] [place] [address] Phone: tel: Referral ID Status Reason Start Date Expiration Date Visits Re quested Visits Authorized [id number] 1 1 [facility] for visit Narrative* Diagnostic Procedure Only (Routine) - Closed Specialty Diagnoses / Procedures [facility] Referred To Contact XR IMAGING Diagnoses Status post left knee replacement Procedures XR KNEE POST OP 3V AP/LAT/MERCHANT LEFT RADIOLOGIC EXAMINATION KNEE 3 VIEWS Nathaniel Vasquez MD [address] [place] [address] Phone: tel: fax: [place] [address] Referral ID Status Reason Start Date Expiration Date V isits Requested Visits Authorized [id number] Closed Auto-Generate d Referral 11/25/2024 12/11/2025 1 1 [facility] for visit Narrative* Diagnostic Procedure Only (Routine) - Closed Specialty Diagnoses / Procedures Referred By Contac t Referred To Contact US IMAGING Diagnoses Thyroid cancer (HCC) Procedures US CERVICAL LYMPH NODE MAPPING US SOFT TISSUE HEAD & NECK REAL TIME IMGE Alberto Ramirez MD [address] [place] [address] Phone: tel: fax: [place] [address] Referral ID Status Reason Start Date Expiration Date V isits Requested Visits Authorized [id number] Closed Auto-Generate d Referral 08/09/2024 09/08/2025 1 1 [facility] Summary Purpose Family History No Family History Records FoundNo Family History Records FoundNo Family History Records FoundNo Family History Records FoundNo Family History Records FoundNo Family History Records Found Advance Directives No Advanced Directives Records FoundDocuments on File Type Date Recorded Patient Shoe Stitcher Expl anation Advance Directive(s) 09/26/2016 3:20 PM Advance Directive(s) 05/30/2016 1:47 PM Advance Directive(s) 05/27/2016 12:43 PM Documents on File Type Date Recorded Patient Shoe Stitcher Expl anation Advance Directive(s) 09/26/2016 3:20 PM Advance Directive(s) 05/30/2016 1:47 PM Advance Directive(s) 05/27/2016 12:43 PM Advance Directive Response Recorded Date/ Time Living Will No August 09 5:56pm Power of Loan Analyst No August 09, 2022 5:56pm Date Activated Date Inactivated Comments 08/25/2024 6:14 PM Date Activated Date Inactivated Comments 08/25/2024 6:14 PM Date Activated Date Inactivated Comments 08/25/2024 6:14 PM 10/26/2024 8:11 AM Date Activated Date Inactivated Comments 08/25/2024 6:14 PM 10/26/2024 8:11 AM Date Activated Date Inactivated Comments 11/15/2024 7:05 AM Date Activated Date Inactivated Comments 08/25/2024 6:14 PM 10/26/2024 8:11 AM Date Activated Date Inactivated Comments 11/15/2024 7:05 AM Date Activated Date Inactivated Comments 08/25/2024 6:14 PM 10/26/2024 8:11 AM Advance Directive Response Recorded Date/ Time Living Will No September 24 12:18am Do you have a Healthcare Power of Loan Analyst? No September 24, 2024 12:18am Living Will No December 08, 2024 1:45pm Do you have a Healthcare Power of Loan Analyst? No December 08, 2024 1:45pm Reason for Referral Specialty Diagnoses / Procedures Referred By Contac t Referred To Contact CT IMAGING Diagnoses Interstitial pulmonary disease (HCC) Procedures CT CHEST WO IVCON DIAGNOSTIC COMPUTED TOMOGRAPHY THORAX W/O CNTDimitris Brady MD [address] [place] [address] Referral ID Status Reason Start Date Expiration Date Visits Requested Visits Authorized [id number] Incomplete Auto-Generat ed Referral 12/18/2021 01/17/2023 1 1 Specialty Diagnoses / Procedures Referred By Contac t Referred To Contact CT IMAGING Diagnoses Interstitial pulmonary disease (HCC) Procedures CT CHEST WO IVCON DIAGNOSTIC COMPUTED TOMOGRAPHY THORAX W/O CNTRST Dimitris Lopez MD [address] [place] [address] [place] [address] Referral ID Status Reason Start Date Expiration Date V isits Requested Visits Authorized [id number] Closed Auto-Generate d Referral 12/18/2021 03/20/2022 1 1 Specialty Diagnoses / Procedures Referred By Contac t Referred To Contact Podiatry Diagnoses Foot injury, left, initial encounter Procedures CONSULT TO PODIATRY OFFICE/OUTPATIENT [facility] 60-74 MINUTES Tamir Fitzpatrick, GARRY.BUILDING MAINTENANCE SUPERVISOR [address] [facility] [place] [address] Referral ID Status Reason Start Date Expiration Date Visits Requested Visits Authorized [id number] Authorized PCP Requested Referral 08/14/2022 08/14/2023 1 1 Specialty Diagnoses / Procedures Referred By Contac t Referred To Contact XR IMAGING Diagnoses Foot injury, left, initial encounter Procedures XR FOOT GENERAL 3V AP/LAT/OBL LEFT RADEX FOOT COMPLETE MINIMUM 3 VIEWS Tamir Fitzpatrick, GARRY.BUILDING MAINTENANCE SUPERVISOR [address] [facility] [place] [address] Xr Imaging Referral ID Status Reason Start Date Expiration Date V isits Requested Visits Authorized [id number] Closed Auto-Generate d Referral 08/13/2022 09/12/2023 1 1 Specialty Diagnoses / Procedures Referred By Contac t Referred To Contact Vascular Medicine Diagnoses Left leg swelling Procedures CONSULT TO VASCULAR MEDICINE OFFICE/OUTPATIENT [facility] MDM 60-74 MINUTES Anayeli Ng APRN.BUILDING MAINTENANCE SUPERVISOR [address] [place] [address] Referral ID Status Reason Start Date Expiration Date Visits Requested Visits Authorized [id number] Authorized PCP Requested Referral 03/06/2023 03/05/2024 1 1 Specialty Diagnoses / Procedures Referred By Contac t Referred [facility] Diagnoses Left leg swelling Procedures PVR ANK PRESS VIVIEN VAS LAB NON-INVAS PHYSIOLOGIC STD EXTREMITY ART 2 LEVEL Anayeli Ng APRN.BUILDING MAINTENANCE SUPERVISOR [address] [place] [address] [facility] [address] [place] [address] Referral ID Status Reason Start Date Expiration Date Visits Requested Visits Authorized [id number] Authorized Auto-Generat ed Referral 03/06/2023 03/05/2024 1 1 Specialty Diagnoses / Procedures Referred By Contac t Referred To Contact US IMAGING Diagnoses Left leg swelling Procedures US VENOUS REFLUX BILATERAL DUP-SCAN XTR VEINS COMPLETE BILATERAL STUDY Anayeli Ng APRN.BUILDING MAINTENANCE SUPERVISOR [address] [place] [address] Us Imaging Referral ID Status Reason Start Date Expiration Date Visits Requested Visits Authorized [id number] Authorized Auto-Generat ed Referral 03/06/2023 04/04/2024 1 1 Specialty Diagnoses / Procedures Referred By Contac t Referred To Contact MR IMAGING Diagnoses Chronic pain of left knee Procedures MRI KNEE WO IVCON LEFT MRI ANY JT LOWER EXTREM W/O CONTRAST Nydia Nash PA-C [address] [place] [address] [place] [address] Referral ID Status Reason Start Date Expiration Date Visits Requested Visits Authorized [id number] Incomplete Auto-Generat ed Referral 02/11/2024 03/12/2025 1 1 Specialty Diagnoses / Procedures Referred By Contac t Referred To Contact [facility] Diagnoses Bilateral primary osteoarthritis of knee Chronic pain of left knee Procedures CONSULT TO PHYSICAL THERAPY PHYSICAL THERAPY EVALUATION HIGH COMPLEX 45 MINS Nydia Wade PA-C [address] [place] [address] [facility] [place] [address] [place] [address] Referral ID Status Reason Start Date Expiration Date Visits Requested Visits Authorized [id number] Authorized Auto-Generat ed Referral 09/07/2023 09/06/2024 30 30 Specialty Diagnoses / Procedures Referred By Contac t Referred To Contact Diagnoses Primary osteoarthritis of both knees Rheumatoid arthritis involving both knees, unspecified whether rheumatoid factor present (HCC) Procedures REFER TO [facility] PREOPERATIVE OPTIMIZATION OFFICE/OUTPATIENT [facility] MDM 60 MINUTES Nathaniel Vasquez MD [address] [place] [address] Referral ID Status Reason Start Date Expiration Date Visits Requested Visits Authorized [id number] Authorized PCP Requested Referral 04/20/2024 04/20/2025 1 1 Specialty Diagnoses / Procedures Referred By Contac t Referred To Contact CT IMAGING Diagnoses Primary osteoarthritis of both knees Rheumatoid arthritis involving both knees, unspecified whether rheumatoid factor present (HCC) Preop examination Procedures CT KNEE WO IVCON RIGHT CT LOWER EXTREMITY W/O CONTRAST MATERIAL Nathaniel Vasquez MD [address] [place] [address] [place] [address] Referral ID Status Reason Start Date Expiration Date Visits Requested Visits Authorized [id number] Authorized Auto-Generat ed Referral 07/11/2024 05/20/2025 1 1 Specialty Diagnoses / Procedures Referred By Contac t Referred To Contact Endocrinology Diagnoses Hypothyroidism, acquired Procedures CONSULT TO ENDOCRINOLOGY OFFICE/OUTPATIENT [facility] 60 MINUTES Laura Robertson MD [address] [place] [id number] Referral ID Status Reason Start Date Expiration Date Visits Requested Visits Authorized [id number] Authorized PCP Requested Referral 05/06/2024 05/06/2025 1 1 Specialty Diagnoses / Procedures Referred By Contac t Referred To Contact Dermatology Diagnoses Contact dermatitis, unspecified contact dermatitis type, unspecified trigger Procedures CONSULT TO DERMATOLOGY Anayeli Ng APRN.BUILDING MAINTENANCE SUPERVISOR [address] [place] [address] Referral ID Status Reason Start Date Expiration Date Visits Requested Visits Authorized [id number] Ref Not Required PCP Requested Referral 05/26/2024 05/26/2025 1 1 Specialty Diagnoses / Procedures Referred By Contac t Referred To Contact MR IMAGING Diagnoses Syncope, unspecified syncope type Procedures MRI BRAIN WO/W IVCON MRI BRAIN BRAIN STEM W/O W/CONTRAST MATERIAL Anayeli Ng APRN.BUILDING MAINTENANCE SUPERVISOR [address] [place] [address] [place] [address] Referral ID Status Reason Start Date Expiration Date Visits Requested Visits Authorized [id number] Pending Review Auto-Genera palma Referral Patient Cleared - Admin/Chair man/Directo r advise to proceed or did not respond 05/26/2024 06/25/2025 1 1 Specialty Diagnoses / Procedures Referred By Contac t Referred To Contact Endocrinology Diagnoses Hypothyroidism, acquired Thyroid cancer (HCC) Procedures CONSULT TO ENDOCRINOLOGY OFFICE/OUTPATIENT [facility] 60 MINUTES Anayeli Ng APRN.BUILDING MAINTENANCE SUPERVISOR [address] [place] [address] Referral ID Status Reason Start Date Expiration Date Visits Requested Visits Authorized [id number] Authorized PCP Requested Referral 05/26/2024 05/26/2025 1 1 Specialty Diagnoses / Procedures Referred By Contac t Referred To Contact MR IMAGING Diagnoses Syncope, unspecified syncope type Procedures MRI BRAIN WO/W IVCON MRI BRAIN BRAIN STEM W/O W/CONTRAST MATERIAL Anayeli Ng APRN.BUILDING MAINTENANCE SUPERVISOR [address] [place] [address] [address] [place] [address] Referral ID Status Reason Start Date Expiration Date V isits Requested Visits Authorized [id number] Closed Auto-Generat ed Referral Patient Cleared - Admin/Chairm an/Director advise to proceed or did not respond 05/26/2024 08/25/2024 1 1 Specialty Diagnoses / Procedures Referred By Contac t Referred To Contact Neurology Diagnoses Abnormal finding on MRI of brain Memory changes Procedures CONSULT TO NEUROLOGY OFFICE/OUTPATIENT [facility] MDM 60 MINUTES Anayeli Ng APRN.BUILDING MAINTENANCE SUPERVISOR [address] [place] [address] Referral ID Status Reason Start Date Expiration Date Visits Requested Visits Authorized [id number] Authorized PCP Requested Referral 06/15/2024 06/15/2025 1 1 Specialty Diagnoses / Procedures Referred By Contac t Referred To Contact [facility] Diagnoses S/P total knee arthroplasty, right Procedures CONSULT TO PHYSICAL THERAPY PHYSICAL THERAPY EVALUATION [facility] 45 MINS Nathaniel Vasquez MD [address] [place] [address] [facility] [place] [address] [place] [address] Referral ID Status Reason Start Date Expiration Date Visits Requested Visits Authorized [id number] Pending Review Auto-Generat ed Referral 09/02/2025 1 1 Specialty Diagnoses / Procedures Referred By Contac t Referred To Contact MR IMAGING Diagnoses Splenic lesion Abnormal findings on diagnostic imaging of body structures Procedures MRI SPLEEN WO IVCON MRI, ABDOMEN (MRI) Salinas Samuel APRN.BUILDING MAINTENANCE SUPERVISOR [address] [place] [address] [place] [address] Referral ID Status Reason Start Date Expiration Date Visits Requested Visits Authorized [id number] Incomplete Auto-Generat ed Referral 03/30/2025 10/30/2025 1 1 Specialty Diagnoses / Procedures Referred By Contac t Referred To Contact US IMAGING Diagnoses Calculus of gallbladder without cholecystitis without obstruction Upper abdominal pain Procedures US ABD RIGHT UPPER QUADRANT US ABDOMINAL REAL TIME W/IMAGE LIMITED Salinas Samuel APRN.BUILDING MAINTENANCE SUPERVISOR [address] [place] [address] [place] [address] Referral ID Status Reason Start Date Expiration Date Visits Requested Visits Authorized [id number] Authorized Auto-Generat ed Referral 09/30/2024 10/30/2025 1 1 Specialty Diagnoses / Procedures Referred By Contac t Referred To Contact General Surgery Diagnoses Calculus of gallbladder without cholecystitis without obstruction Upper abdominal pain Procedures CONSULT TO GENERAL SURGERY OFFICE/OUTPATIENT [facility] 60 MINUTES Salinas Samuel APRN.BUILDING MAINTENANCE SUPERVISOR [address] [place] [address] Referral ID Status Reason Start Date Expiration Date Visits Requested Visits Authorized [id number] Authorized PCP Requested Referral 09/30/2024 09/30/2025 1 1 Specialty Diagnoses / Procedures Referred By Contac t Referred To Contact Diagnoses Primary osteoarthritis of left knee Procedures REFER TO [facility] PREOPERATIVE OPTIM[facility]ATION OFFICE/OUTPATIENT [facility] 60 MINUTES Nathaniel Vasquez MD [address] [place] [address] Referral ID Status Reason Start Date Expiration Date Visits Requested Visits Authorized [id number] Authorized PCP Requested Referral 10/05/2024 10/05/2025 1 1 Specialty Diagnoses / Procedures Referred By Contac t Referred To Contact CT IMAGING Diagnoses Primary osteoarthritis of left knee Preoperative examination Procedures CT KNEE WO IVCON LEFT CT LOWER EXTREMITY W/O CONTRAST MATERIAL Nathaniel Vasquez MD [address] [place] [address] [place] [address] Referral ID Status Reason Start Date Expiration Date Visits Requested Visits Authorized [id number] Authorized Auto-Generat ed Referral 10/05/2024 11/04/2025 1 1 Medications Administered Section Inactive Administered Medications - up to 3 most recent administrations Medication Order MAR Action Action Date Dose Rate Site acetaminophen 1,000 mg tab(s) (TYLENOL) 1,000 mg, ORAL, ONCE, 1 dose, On Thu08/08/22 at 1400, No more than 4000 mg of acetaminophen should be given per day (FROM ALL SOURCES), If ordered PRN for pain, patient/guardian may elect to receive this medication for higher pain levels INSTEAD of the opioid, if preferred: N/A Given 08/08/2022 1:53 PM EST 1,000 mg zoledronic acid 5 mg PREMIX piggyback (RECLAST) 5 mg, INTRAVENOUS, at 400 mL/hr, Administer over 15 Minutes, ONCE, 1 dose, On Thu08/08/22 at 1400, Hazardous Potential Reproductive Risk Drug: Use appropriate PPE. New Bag/Syringe/Bottle 08/08/2022 1:53 PM EST 5 mg 400 mL/hr Inactive Administered Medications - up to 3 most recent administrations Medication Order MAR Action Action Date Dose Rate Site acetaminophen 1,000 mg tab(s) (TYLENOL) 1,000 mg, ORAL, ONCE, 1 dose, On Chasity 01/15/23 at 0900, No more than 4000 mg of acetaminophen should be given per day (FROM ALL SOURCES), If ordered PRN for pain, patient/guardian may elect to receive this medication for higher pain levels INSTEAD of the opioid, if preferred: N/A Given 01/15/2023 12:56 PM EDT 1,000 mg dexAMETHasone 20 mg tab(s) (DECADRON) 20 mg, ORAL, ONCE, 1 dose, On Chasity 01/15/23 at 1000, Give 30 minutes prior to chemotherapy Given 01/15/2023 9:32 AM EDT 20 mg diphenhydrAMINE 50 mg (BENADRYL) 50 mg, ORAL, ONCE, 1 dose, On Chasity 01/15/23 at 0900 Given 01/15/2023 9:04 AM EDT 50 mg riTUXimab-pvvr 1,000 mg in NaCl 0.9% 640 mL (RUXIENCE) 1,000 mg, INTRAVENOUS, ONCE, 1 dose, On Chasity 01/15/23 at 0900, Approximate total volume- EXP: (14 days) Fridge Infuse at rate of 50mg/hr. If no hypotension, increase rate every 30 minutes by 50mg/hr to a maximum rate of 400mg/hr. Refrigerate. Rate/Dose Change 01/15/2023 1:50 PM EDT 256 mL/hr Rate/Dose Change 01/15/2023 1:20 PM EDT 192 mL/ hr Rate/Dose Change 01/15/2023 12:50 PM EDT 224 mL /hr Inactive Administered Medications - up to 3 most recent administrations Medication Order MAR Action Action Date Dose Rate Site acetaminophen 1,000 mg tab(s) (TYLENOL) 1,000 mg, ORAL, ONCE, 1 dose, On Chasity 11/30/23 at 0900, No more than 4000 mg of acetaminophen should be given per day (FROM ALL SOURCES), If ordered PRN for pain, patient/guardian may elect to receive this medication for higher pain levels INSTEAD of the opioid, if preferred: N/A Given 08/06/2023 9:17 AM EST 1,000 mg diphenhydrAMINE 50 mg (BENADRYL) 50 mg, ORAL, ONCE, 1 dose, On Chasity 08/06/23 at 0900 Given 08/06/2023 9:17 AM EST 50 mg methylPREDNISolone sod succinate(PF) 125 mg injection (SOLU-Medrol) 125 mg, INTRAVENOUS, ONCE, 1 dose, On Chasity 08/06/23 at 0900 Given 08/06/2023 9:45 AM EST 125 mg riTUXimab-pvvr 1,000 mg in NaCl 0.9% 640 mL (RUXIENCE) 1,000 mg, INTRAVENOUS, ONCE, 1 dose, On Chasity 08/06/23 at 0900, Approximate total volume- EXP: (14 days) Fridge Infuse at rate of 50mg/hr. If no hypotension, increase rate every 30 minutes by 50mg/hr to a maximum rate of 400mg/hr. Refrigerate. Rate/Dose Change 08/06/2023 12:55 PM EST 256 mL/hr Rate/Dose Change 08/06/2023 12:25 PM EST 192 mL /hr Rate/Dose Change 08/06/2023 11:55 AM EST 160 mL /hr Inactive Administered Medications - up to 3 most recent administrations Medication Order MAR Action Action Date Dose Rate Site acetaminophen 1,000 mg tab(s) (TYLENOL) 1,000 mg, ORAL, ONCE, 1 dose, On Chasity 08/20/23 at 0900, No more than 4000 mg of acetaminophen should be given per day (FROM ALL SOURCES), If ordered PRN for pain, patient/guardian may elect to receive this medication for higher pain levels INSTEAD of the opioid, if preferred: N/A Given 08/20/2023 8:56 AM EST 1,000 mg diphenhydrAMINE 50 mg (BENADRYL) 50 mg, ORAL, ONCE, 1 dose, On Chasity 08/20/23 at 0900 Given 08/20/2023 8:56 AM EST 50 mg methylPREDNISolone sod succinate(PF) 125 mg injection (SOLU-Medrol) 125 mg, INTRAVENOUS, ONCE, 1 dose, On Chasity 08/20/23 at 0900 Given 08/20/2023 8:57 AM EST 125 mg riTUXimab-pvvr 1,000 mg in NaCl 0.9% 640 mL (RUXIENCE) 1,000 mg, INTRAVENOUS, ONCE, 1 dose, On Chasity 08/20/23 at 0900, EXP: (14 days) Fridge Infuse at rate of 100mg/hr. If no hypotension, increase rate every 30 minutes by 100mg/hr to a maximum rate of 400mg/hr. Refrigerate. Rate/Dose Change 08/20/2023 11:00 AM EST 256 mL/hr Rate/Dose Change 08/20/2023 10:30 AM EST 192 mL /hr Rate/Dose Change 08/20/2023 10:00 AM EST 128 mL /hr zoledronic acid 5 mg PREMIX piggyback (RECLAST) 5 mg, INTRAVENOUS, at 400 mL/hr, Administer over 15 Minutes, ONCE, 1 dose, On Chasity 08/20/23 at 1200, Hazardous Potential Reproductive Risk Drug: Use appropriate PPE. New Bag/Syringe/Bottle 08/20/2023 1:04 PM EST 5 mg 400 mL/hr Chief Complaint and Reason for Visit Chief Complaint GENERAL ILLNESS Chief Complaint Admit Date weakness September 23, 2024 1 1:08pm nausea vomiting dirrhea December 08, 2024 1:30pm Health Concerns Infection Onset Date Last Indicated Resolved Time COVID-19 Rule-Out 10/16/2022 10/16/2022 Additional Source Comments INFORMATION SOURCE (unrecogn ized section and content) DATE CREATED AUTHOR 02/25/2018 [facility] DATE CREATED AUTHOR AUTHOR'S ORGANIZ ATION 02/17/2023 [facility] DATE CREATED AUTHOR AUTHOR'S ORGANIZ ATION 11/27/2024 [facility] DATE CREATED AUTHOR AUTHOR'S ORGANIZ ATION 12/13/2024 [facility] DATE CREATED AUTHOR AUTHOR'S ORGANIZ ATION 01/03/2025 [facility] DATE CREATED AUTHOR AUTHOR'S ORGANIZ ATION 02/03/2025 [facility] Source Comments (unrecognize d section and content) In the event this informatio n is protected by the Federal Confidentiality of Alcohol and Drug Abuse Patient Records regulations: The Federal rules restrict any use of the information to criminally investigate or prosecute any alcohol or drug abuse patient.[facility] the event this information is protected by the Federal Confidentiality of Alcohol and Drug Abuse Patient Records regulations: The Federal rules restrict any use of the information to criminally investigate or prosecute any alcohol or drug abuse patient.[facility] CenterIn the event this information is protected by the Federal Confidentiality of Alcohol and Drug Abuse Patient Records regulations: The Federal rules restrict any use of the information to criminally investigate or prosecute any alcohol or drug abuse patient.[facility] CenterIn the event this information is protected by the Federal Confidentiality of Alcohol and Drug Abuse Patient Records regulations: The Federal rules restrict any use of the information to criminally investigate or prosecute any alcohol or drug abuse patient.[facility] CenterIn the event this information is protected by the Federal Confidentiality of Alcohol and Drug Abuse Patient Records regulations: The Federal rules restrict any use of the information to criminally investigate or prosecute any alcohol or drug abuse patient.[facility] CenterIn the event this information is protected by the Federal Confidentiality of Alcohol and Drug Abuse Patient Records regulations: The Federal rules restrict any use of the information to criminally investigate or prosecute any alcohol or drug abuse patient.[facility] CenterIn the event this information is protected by the Federal Confidentiality of Alcohol and Drug Abuse Patient Records regulations: The Federal rules restrict any use of the information to criminally investigate or prosecute any alcohol or drug abuse patient.[facility] CenterIn the event this information is protected by the Federal Confidentiality of Alcohol and Drug Abuse Patient Records regulations: The Federal rules restrict any use of the information to criminally investigate or prosecute any alcohol or drug abuse patient.[facility] CenterIn the event this information is protected by the Federal Confidentiality of Alcohol and Drug Abuse Patient Records regulations: The Federal rules restrict any use of the information to criminally investigate or prosecute any alcohol or drug abuse patient.[facility] CenterIn the event this information is protected by the Federal Confidentiality of Alcohol and Drug Abuse Patient Records regulations: The Federal rules restrict any use of the information to criminally investigate or prosecute any alcohol or drug abuse patient.[facility] CenterIn the event this information is protected by the Federal Confidentiality of Alcohol and Drug Abuse Patient Records regulations: The Federal rules restrict any use of the information to criminally investigate or prosecute any alcohol or drug abuse patient.[facility] CenterIn the event this information is protected by the Federal Confidentiality of Alcohol and Drug Abuse Patient Records regulations: The Federal rules restrict any use of the information to criminally investigate or prosecute any alcohol or drug abuse patient.[facility] CenterIn the event this information is protected by the Federal Confidentiality of Alcohol and Drug Abuse Patient Records regulations: The Federal rules restrict any use of the information to criminally investigate or prosecute any alcohol or drug abuse patient.[facility] CenterIn the event this information is protected by the Federal Confidentiality of Alcohol and Drug Abuse Patient Records regulations: The Federal rules restrict any use of the information to criminally investigate or prosecute any alcohol or drug abuse patient.[facility] CenterIn the event this information is protected by the Federal Confidentiality of Alcohol and Drug Abuse Patient Records regulations: The Federal rules restrict any use of the information to criminally investigate or prosecute any alcohol or drug abuse patient.[facility] CenterIn the event this information is protected by the Federal Confidentiality of Alcohol and Drug Abuse Patient Records regulations: The Federal rules restrict any use of the information to criminally investigate or prosecute any alcohol or drug abuse patient.[facility] CenterIn the event this information is protected by the Federal Confidentiality of Alcohol and Drug Abuse Patient Records regulations: The Federal rules restrict any use of the information to criminally investigate or prosecute any alcohol or drug abuse patient.[facility] CenterIn the event this information is protected by the Federal Confidentiality of Alcohol and Drug Abuse Patient Records regulations: The Federal rules restrict any use of the information to criminally investigate or prosecute any alcohol or drug abuse patient.[facility] CenterIn the event this information is protected by the Federal Confidentiality of Alcohol and Drug Abuse Patient Records regulations: The Federal rules restrict any use of the information to criminally investigate or prosecute any alcohol or drug abuse patient.[facility] CenterIn the event this information is protected by the Federal Confidentiality of Alcohol and Drug Abuse Patient Records regulations: The Federal rules restrict any use of the information to criminally investigate or prosecute any alcohol or drug abuse patient.[facility] CenterIn the event this information is protected by the Federal Confidentiality of Alcohol and Drug Abuse Patient Records regulations: The Federal rules restrict any use of the information to criminally investigate or prosecute any alcohol or drug abuse patient.[facility] CenterIn the event this information is protected by the Federal Confidentiality of Alcohol and Drug Abuse Patient Records regulations: The Federal rules restrict any use of the information to criminally investigate or prosecute any alcohol or drug abuse patient.[facility] CenterIn the event this information is protected by the Federal Confidentiality of Alcohol and Drug Abuse Patient Records regulations: The Federal rules restrict any use of the information to criminally investigate or prosecute any alcohol or drug abuse patient.[facility] CenterIn the event this information is protected by the Federal Confidentiality of Alcohol and Drug Abuse Patient Records regulations: The Federal rules restrict any use of the information to criminally investigate or prosecute any alcohol or drug abuse patient.[facility] CenterIn the event this information is protected by the Federal Confidentiality of Alcohol and Drug Abuse Patient Records regulations: The Federal rules restrict any use of the information to criminally investigate or prosecute any alcohol or drug abuse patient.[facility] CenterIn the event this information is protected by the Federal Confidentiality of Alcohol and Drug Abuse Patient Records regulations: The Federal rules restrict any use of the information to criminally investigate or prosecute any alcohol or drug abuse patient.[facility] CenterIn the event this information is protected by the Federal Confidentiality of Alcohol and Drug Abuse Patient Records regulations: The Federal rules restrict any use of the information to criminally investigate or prosecute any alcohol or drug abuse patient.[facility] CenterIn the event this information is protected by the Federal Confidentiality of Alcohol and Drug Abuse Patient Records regulations: The Federal rules restrict any use of the information to criminally investigate or prosecute any alcohol or drug abuse patient.[facility] CenterIn the event this information is protected by the Federal Confidentiality of Alcohol and Drug Abuse Patient Records regulations: The Federal rules restrict any use of the information to criminally investigate or prosecute any alcohol or drug abuse patient.[facility] CenterIn the event this information is protected by the Federal Confidentiality of Alcohol and Drug Abuse Patient Records regulations: The Federal rules restrict any use of the information to criminally investigate or prosecute any alcohol or drug abuse patient.[facility] CenterIn the event this information is protected by the Federal Confidentiality of Alcohol and Drug Abuse Patient Records regulations: The Federal rules restrict any use of the information to criminally investigate or prosecute any alcohol or drug abuse patient.[facility] CenterIn the event this information is protected by the Federal Confidentiality of Alcohol and Drug Abuse Patient Records regulations: The Federal rules restrict any use of the information to criminally investigate or prosecute any alcohol or drug abuse patient.[facility] CenterIn the event this information is protected by the Federal Confidentiality of Alcohol and Drug Abuse Patient Records regulations: The Federal rules restrict any use of the information to criminally investigate or prosecute any alcohol or drug abuse patient.[facility] CenterIn the event this information is protected by the Federal Confidentiality of Alcohol and Drug Abuse Patient Records regulations: The Federal rules restrict any use of the information to criminally investigate or prosecute any alcohol or drug abuse patient.[facility] CenterIn the event this information is protected by the Federal Confidentiality of Alcohol and Drug Abuse Patient Records regulations: The Federal rules restrict any use of the information to criminally investigate or prosecute any alcohol or drug abuse patient.[facility] CenterIn the event this information is protected by the Federal Confidentiality of Alcohol and Drug Abuse Patient Records regulations: The Federal rules restrict any use of the information to criminally investigate or prosecute any alcohol or drug abuse patient.[facility] CenterIn the event this information is protected by the Federal Confidentiality of Alcohol and Drug Abuse Patient Records regulations: The Federal rules restrict any use of the information to criminally investigate or prosecute any alcohol or drug abuse patient.[facility] CenterIn the event this information is protected by the Federal Confidentiality of Alcohol and Drug Abuse Patient Records regulations: The Federal rules restrict any use of the information to criminally investigate or prosecute any alcohol or drug abuse patient.[facility] CenterIn the event this information is protected by the Federal Confidentiality of Alcohol and Drug Abuse Patient Records regulations: The Federal rules restrict any use of the information to criminally investigate or prosecute any alcohol or drug abuse patient.[facility] CenterIn the event this information is protected by the Federal Confidentiality of Alcohol and Drug Abuse Patient Records regulations: The Federal rules restrict any use of the information to criminally investigate or prosecute any alcohol or drug abuse patient.[facility] CenterIn the event this information is protected by the Federal Confidentiality of Alcohol and Drug Abuse Patient Records regulations: The Federal rules restrict any use of the information to criminally investigate or prosecute any alcohol or drug abuse patient.[facility] CenterIn the event this information is protected by the Federal Confidentiality of Alcohol and Drug Abuse Patient Records regulations: The Federal rules restrict any use of the information to criminally investigate or prosecute any alcohol or drug abuse patient.[facility] CenterIn the event this information is protected by the Federal Confidentiality of Alcohol and Drug Abuse Patient Records regulations: The Federal rules restrict any use of the information to criminally investigate or prosecute any alcohol or drug abuse patient.[facility] CenterIn the event this information is protected by the Federal Confidentiality of Alcohol and Drug Abuse Patient Records regulations: The Federal rules restrict any use of the information to criminally investigate or prosecute any alcohol or drug abuse patient.[facility] CenterIn the event this information is protected by the Federal Confidentiality of Alcohol and Drug Abuse Patient Records regulations: The Federal rules restrict any use of the information to criminally investigate or prosecute any alcohol or drug abuse patient.[facility] CenterIn the event this information is protected by the Federal Confidentiality of Alcohol and Drug Abuse Patient Records regulations: The Federal rules restrict any use of the information to criminally investigate or prosecute any alcohol or drug abuse patient.[facility] CenterIn the event this information is protected by the Federal Confidentiality of Alcohol and Drug Abuse Patient Records regulations: The Federal rules restrict any use of the information to criminally investigate or prosecute any alcohol or drug abuse patient.[facility] CenterIn the event this information is protected by the Federal Confidentiality of Alcohol and Drug Abuse Patient Records regulations: The Federal rules restrict any use of the information to criminally investigate or prosecute any alcohol or drug abuse patient.[facility] CenterIn the event this information is protected by the Federal Confidentiality of Alcohol and Drug Abuse Patient Records regulations: The Federal rules restrict any use of the information to criminally investigate or prosecute any alcohol or drug abuse patient.[facility] CenterIn the event this information is protected by the Federal Confidentiality of Alcohol and Drug Abuse Patient Records regulations: The Federal rules restrict any use of the information to criminally investigate or prosecute any alcohol or drug abuse patient.[facility] CenterIn the event this information is protected by the Federal Confidentiality of Alcohol and Drug Abuse Patient Records regulations: The Federal rules restrict any use of the information to criminally investigate or prosecute any alcohol or drug abuse patient.[facility] CenterIn the event this information is protected by the Federal Confidentiality of Alcohol and Drug Abuse Patient Records regulations: The Federal rules restrict any use of the information to criminally investigate or prosecute any alcohol or drug abuse patient.[facility] CenterIn the event this information is protected by the Federal Confidentiality of Alcohol and Drug Abuse Patient Records regulations: The Federal rules restrict any use of the information to criminally investigate or prosecute any alcohol or drug abuse patient.[facility] CenterIn the event this information is protected by the Federal Confidentiality of Alcohol and Drug Abuse Patient Records regulations: The Federal rules restrict any use of the information to criminally investigate or prosecute any alcohol or drug abuse patient.[facility] CenterIn the event this information is protected by the Federal Confidentiality of Alcohol and Drug Abuse Patient Records regulations: The Federal rules restrict any use of the information to criminally investigate or prosecute any alcohol or drug abuse patient.[facility] CenterIn the event this information is protected by the Federal Confidentiality of Alcohol and Drug Abuse Patient Records regulations: The Federal rules restrict any use of the information to criminally investigate or prosecute any alcohol or drug abuse patient.[facility] CenterIn the event this information is protected by the Federal Confidentiality of Alcohol and Drug Abuse Patient Records regulations: The Federal rules restrict any use of the information to criminally investigate or prosecute any alcohol or drug abuse patient.[facility] CenterIn the event this information is protected by the Federal Confidentiality of Alcohol and Drug Abuse Patient Records regulations: The Federal rules restrict any use of the information to criminally investigate or prosecute any alcohol or drug abuse patient.[facility] CenterIn the event this information is protected by the Federal Confidentiality of Alcohol and Drug Abuse Patient Records regulations: The Federal rules restrict any use of the information to criminally investigate or prosecute any alcohol or drug abuse patient.[facility] CenterIn the event this information is protected by the Federal Confidentiality of Alcohol and Drug Abuse Patient Records regulations: The Federal rules restrict any use of the information to criminally investigate or prosecute any alcohol or drug abuse patient.[facility] CenterIn the event this information is protected by the Federal Confidentiality of Alcohol and Drug Abuse Patient Records regulations: The Federal rules restrict any use of the information to criminally investigate or prosecute any alcohol or drug abuse patient.[facility] CenterIn the event this information is protected by the Federal Confidentiality of Alcohol and Drug Abuse Patient Records regulations: The Federal rules restrict any use of the information to criminally investigate or prosecute any alcohol or drug abuse patient.[facility] CenterIn the event this information is protected by the Federal Confidentiality of Alcohol and Drug Abuse Patient Records regulations: The Federal rules restrict any use of the information to criminally investigate or prosecute any alcohol or drug abuse patient.[facility] CenterIn the event this information is protected by the Federal Confidentiality of Alcohol and Drug Abuse Patient Records regulations: The Federal rules restrict any use of the information to criminally investigate or prosecute any alcohol or drug abuse patient.[facility] CenterIn the event this information is protected by the Federal Confidentiality of Alcohol and Drug Abuse Patient Records regulations: The Federal rules restrict any use of the information to criminally investigate or prosecute any alcohol or drug abuse patient.[facility] CenterIn the event this information is protected by the Federal Confidentiality of Alcohol and Drug Abuse Patient Records regulations: The Federal rules restrict any use of the information to criminally investigate or prosecute any alcohol or drug abuse patient.[facility] CenterIn the event this information is protected by the Federal Confidentiality of Alcohol and Drug Abuse Patient Records regulations: The Federal rules restrict any use of the information to criminally investigate or prosecute any alcohol or drug abuse patient.[facility] CenterIn the event this information is protected by the Federal Confidentiality of Alcohol and Drug Abuse Patient Records regulations: The Federal rules restrict any use of the information to criminally investigate or prosecute any alcohol or drug abuse patient.[facility] CenterIn the event this information is protected by the Federal Confidentiality of Alcohol and Drug Abuse Patient Records regulations: The Federal rules restrict any use of the information to criminally investigate or prosecute any alcohol or drug abuse patient.[facility] CenterIn the event this information is protected by the Federal Confidentiality of Alcohol and Drug Abuse Patient Records regulations: The Federal rules restrict any use of the information to criminally investigate or prosecute any alcohol or drug abuse patient.[facility] CenterIn the event this information is protected by the Federal Confidentiality of Alcohol and Drug Abuse Patient Records regulations: The Federal rules restrict any use of the information to criminally investigate or prosecute any alcohol or drug abuse patient.[facility] CenterIn the event this information is protected by the Federal Confidentiality of Alcohol and Drug Abuse Patient Records regulations: The Federal rules restrict any use of the information to criminally investigate or prosecute any alcohol or drug abuse patient.[facility] CenterIn the event this information is protected by the Federal Confidentiality of Alcohol and Drug Abuse Patient Records regulations: The Federal rules restrict any use of the information to criminally investigate or prosecute any alcohol or drug abuse patient.[facility] CenterIn the event this information is protected by the Federal Confidentiality of Alcohol and Drug Abuse Patient Records regulations: The Federal rules restrict any use of the information to criminally investigate or prosecute any alcohol or drug abuse patient.[facility] CenterIn the event this information is protected by the Federal Confidentiality of Alcohol and Drug Abuse Patient Records regulations: The Federal rules restrict any use of the information to criminally investigate or prosecute any alcohol or drug abuse patient.[facility] CenterIn the event this information is protected by the Federal Confidentiality of Alcohol and Drug Abuse Patient Records regulations: The Federal rules restrict any use of the information to criminally investigate or prosecute any alcohol or drug abuse patient.[facility] CenterIn the event this information is protected by the Federal Confidentiality of Alcohol and Drug Abuse Patient Records regulations: The Federal rules restrict any use of the information to criminally investigate or prosecute any alcohol or drug abuse patient.[facility] CenterIn the event this information is protected by the Federal Confidentiality of Alcohol and Drug Abuse Patient Records regulations: The Federal rules restrict any use of the information to criminally investigate or prosecute any alcohol or drug abuse patient.[facility] CenterIn the event this information is protected by the Federal Confidentiality of Alcohol and Drug Abuse Patient Records regulations: The Federal rules restrict any use of the information to criminally investigate or prosecute any alcohol or drug abuse patient.[facility]In the event this information is protected by the Federal Confidentiality of Alcohol and Drug Abuse Patient Records regulations: The Federal rules restrict any use of the information to criminally investigate or prosecute any alcohol or drug abuse patient.[facility]In the event this information is protected by the Federal Confidentiality of Alcohol and Drug Abuse Patient Records regulations: The Federal rules restrict any use of the information to criminally investigate or prosecute any alcohol or drug abuse patient.[facility] CenterIn the event this information is protected by the Federal Confidentiality of Alcohol and Drug Abuse Patient Records regulations: The Federal rules restrict any use of the information to criminally investigate or prosecute any alcohol or drug abuse patient.[facility] CenterIn the event this information is protected by the Federal Confidentiality of Alcohol and Drug Abuse Patient Records regulations: The Federal rules restrict any use of the information to criminally investigate or prosecute any alcohol or drug abuse patient.[facility] CenterIn the event this information is protected by the Federal Confidentiality of Alcohol and Drug Abuse Patient Records regulations: The Federal rules restrict any use of the information to criminally investigate or prosecute any alcohol or drug abuse patient.[facility] CenterIn the event this information is protected by the Federal Confidentiality of Alcohol and Drug Abuse Patient Records regulations: The Federal rules restrict any use of the information to criminally investigate or prosecute any alcohol or drug abuse patient.[facility]In the event this information is protected by the Federal Confidentiality of Alcohol and Drug Abuse Patient Records regulations: The Federal rules restrict any use of the information to criminally investigate or prosecute any alcohol or drug abuse patient.[facility] CenterIn the event this information is protected by the Federal Confidentiality of Alcohol and Drug Abuse Patient Records regulations: The Federal rules restrict any use of the information to criminally investigate or prosecute any alcohol or drug abuse patient.[facility] CenterIn the event this information is protected by the Federal Confidentiality of Alcohol and Drug Abuse Patient Records regulations: The Federal rules restrict any use of the information to criminally investigate or prosecute any alcohol or drug abuse patient.[facility] CenterIn the event this information is protected by the Federal Confidentiality of Alcohol and Drug Abuse Patient Records regulations: The Federal rules restrict any use of the information to criminally investigate or prosecute any alcohol or drug abuse patient.[facility] CenterIn the event this information is protected by the Federal Confidentiality of Alcohol and Drug Abuse Patient Records regulations: The Federal rules restrict any use of the information to criminally investigate or prosecute any alcohol or drug abuse patient.[facility] CenterIn the event this information is protected by the Federal Confidentiality of Alcohol and Drug Abuse Patient Records regulations: The Federal rules restrict any use of the information to criminally investigate or prosecute any alcohol or drug abuse patient.[facility]In the event this information is protected by the Federal Confidentiality of Alcohol and Drug Abuse Patient Records regulations: The Federal rules restrict any use of the information to criminally investigate or prosecute any alcohol or drug abuse patient.[facility]In the event this information is protected by the Federal Confidentiality of Alcohol and Drug Abuse Patient Records regulations: The Federal rules restrict any use of the information to criminally investigate or prosecute any alcohol or drug abuse patient.[facility]In the event this information is protected by the Federal Confidentiality of Alcohol and Drug Abuse Patient Records regulations: The Federal rules restrict any use of the information to criminally investigate or prosecute any alcohol or drug abuse patient.[facility]In the event this information is protected by the Federal Confidentiality of Alcohol and Drug Abuse Patient Records regulations: The Federal rules restrict any use of the information to criminally investigate or prosecute any alcohol or drug abuse patient.[facility]In the event this information is protected by the Federal Confidentiality of Alcohol and Drug Abuse Patient Records regulations: The Federal rules restrict any use of the information to criminally investigate or prosecute any alcohol or drug abuse patient.[facility]In the event this information is protected by the Federal Confidentiality of Alcohol and Drug Abuse Patient Records regulations: The Federal rules restrict any use of the information to criminally investigate or prosecute any alcohol or drug abuse patient.[facility]In the event this information is protected by the Federal Confidentiality of Alcohol and Drug Abuse Patient Records regulations: The Federal rules restrict any use of the information to criminally investigate or prosecute any alcohol or drug abuse patient.[facility]In the event this information is protected by the Federal Confidentiality of Alcohol and Drug Abuse Patient Records regulations: The Federal rules restrict any use of the information to criminally investigate or prosecute any alcohol or drug abuse patient.[facility]In the event this information is protected by the Federal Confidentiality of Alcohol and Drug Abuse Patient Records regulations: The Federal rules restrict any use of the information to criminally investigate or prosecute any alcohol or drug abuse patient.[facility]In the event this information is protected by the Federal Confidentiality of Alcohol and Drug Abuse Patient Records regulations: The Federal rules restrict any use of the information to criminally investigate or prosecute any alcohol or drug abuse patient.[facility]In the event this information is protected by the Federal Confidentiality of Alcohol and Drug Abuse Patient Records regulations: The Federal rules restrict any use of the information to criminally investigate or prosecute any alcohol or drug abuse patient.[facility]In the event this information is protected by the Federal Confidentiality of Alcohol and Drug Abuse Patient Records regulations: The Federal rules restrict any use of the information to criminally investigate or prosecute any alcohol or drug abuse patient.[facility] CenterIn the event this information is protected by the Federal Confidentiality of Alcohol and Drug Abuse Patient Records regulations: The Federal rules restrict any use of the information to criminally investigate or prosecute any alcohol or drug abuse patient.[facility]In the event this information is protected by the Federal Confidentiality of Alcohol and Drug Abuse Patient Records regulations: The Federal rules restrict any use of the information to criminally investigate or prosecute any alcohol or drug abuse patient.[facility]In the event this information is protected by the Federal Confidentiality of Alcohol and Drug Abuse Patient Records regulations: The Federal rules restrict any use of the information to criminally investigate or prosecute any alcohol or drug abuse patient.[facility]In the event this information is protected by the Federal Confidentiality of Alcohol and Drug Abuse Patient Records regulations: The Federal rules restrict any use of the information to criminally investigate or prosecute any alcohol or drug abuse patient.[facility]In the event this information is protected by the Federal Confidentiality of Alcohol and Drug Abuse Patient Records regulations: The Federal rules restrict any use of the information to criminally investigate or prosecute any alcohol or drug abuse patient.[facility]In the event this information is protected by the Federal Confidentiality of Alcohol and Drug Abuse Patient Records regulations: The Federal rules restrict any use of the information to criminally investigate or prosecute any alcohol or drug abuse patient.[facility]In the event this information is protected by the Federal Confidentiality of Alcohol and Drug Abuse Patient Records regulations: The Federal rules restrict any use of the information to criminally investigate or prosecute any alcohol or drug abuse patient.[facility]In the event this information is protected by the Federal Confidentiality of Alcohol and Drug Abuse Patient Records regulations: The Federal rules restrict any use of the information to criminally investigate or prosecute any alcohol or drug abuse patient.[facility]In the event this information is protected by the Federal Confidentiality of Alcohol and Drug Abuse Patient Records regulations: The Federal rules restrict any use of the information to criminally investigate or prosecute any alcohol or drug abuse patient.[facility]In the event this information is protected by the Federal Confidentiality of Alcohol and Drug Abuse Patient Records regulations: The Federal rules restrict any use of the information to criminally investigate or prosecute any alcohol or drug abuse patient.[facility]In the event this information is protected by the Federal Confidentiality of Alcohol and Drug Abuse Patient Records regulations: The Federal rules restrict any use of the information to criminally investigate or prosecute any alcohol or drug abuse patient.[facility]In the event this information is protected by the Federal Confidentiality of Alcohol and Drug Abuse Patient Records regulations: The Federal rules restrict any use of the information to criminally investigate or prosecute any alcohol or drug abuse patient.[facility]In the event this information is protected by the Federal Confidentiality of Alcohol and Drug Abuse Patient Records regulations: The Federal rules restrict any use of the information to criminally investigate or prosecute any alcohol or drug abuse patient.[facility]In the event this information is protected by the Federal Confidentiality of Alcohol and Drug Abuse Patient Records regulations: The Federal rules restrict any use of the information to criminally investigate or prosecute any alcohol or drug abuse patient.[facility]In the event this information is protected by the Federal Confidentiality of Alcohol and Drug Abuse Patient Records regulations: The Federal rules restrict any use of the information to criminally investigate or prosecute any alcohol or drug abuse patient.[facility]In the event this information is protected by the Federal Confidentiality of Alcohol and Drug Abuse Patient Records regulations: The Federal rules restrict any use of the information to criminally investigate or prosecute any alcohol or drug abuse patient.[facility]In the event this information is protected by the Federal Confidentiality of Alcohol and Drug Abuse Patient Records regulations: The Federal rules restrict any use of the information to criminally investigate or prosecute any alcohol or drug abuse patient.[facility]In the event this information is protected by the Federal Confidentiality of Alcohol and Drug Abuse Patient Records regulations: The Federal rules restrict any use of the information to criminally investigate or prosecute any alcohol or drug abuse patient.[facility]In the event this information is protected by the Federal Confidentiality of Alcohol and Drug Abuse Patient Records regulations: The Federal rules restrict any use of the information to criminally investigate or prosecute any alcohol or drug abuse patient.[facility] CenterIn the event this information is protected by the Federal Confidentiality of Alcohol and Drug Abuse Patient Records regulations: The Federal rules restrict any use of the information to criminally investigate or prosecute any alcohol or drug abuse patient.[facility] CenterIn the event this information is protected by the Federal Confidentiality of Alcohol and Drug Abuse Patient Records regulations: The Federal rules restrict any use of the information to criminally investigate or prosecute any alcohol or drug abuse patient.[facility] CenterIn the event this information is protected by the Federal Confidentiality of Alcohol and Drug Abuse Patient Records regulations: The Federal rules restrict any use of the information to criminally investigate or prosecute any alcohol or drug abuse patient.[facility] CenterIn the event this information is protected by the Federal Confidentiality of Alcohol and Drug Abuse Patient Records regulations: The Federal rules restrict any use of the information to criminally investigate or prosecute any alcohol or drug abuse patient.[facility] CenterIn the event this information is protected by the Federal Confidentiality of Alcohol and Drug Abuse Patient Records regulations: The Federal rules restrict any use of the information to criminally investigate or prosecute any alcohol or drug abuse patient.[facility] CenterIn the event this information is protected by the Federal Confidentiality of Alcohol and Drug Abuse Patient Records regulations: The Federal rules restrict any use of the information to criminally investigate or prosecute any alcohol or drug abuse patient.[facility] CenterIn the event this information is protected by the Federal Confidentiality of Alcohol and Drug Abuse Patient Records regulations: The Federal rules restrict any use of the information to criminally investigate or prosecute any alcohol or drug abuse patient.[facility] CenterIn the event this information is protected by the Federal Confidentiality of Alcohol and Drug Abuse Patient Records regulations: The Federal rules restrict any use of the information to criminally investigate or prosecute any alcohol or drug abuse patient.[facility] CenterIn the event this information is protected by the Federal Confidentiality of Alcohol and Drug Abuse Patient Records regulations: The Federal rules restrict any use of the information to criminally investigate or prosecute any alcohol or drug abuse patient.[facility] CenterIn the event this information is protected by the Federal Confidentiality of Alcohol and Drug Abuse Patient Records regulations: The Federal rules restrict any use of the information to criminally investigate or prosecute any alcohol or drug abuse patient.[facility] CenterIn the event this information is protected by the Federal Confidentiality of Alcohol and Drug Abuse Patient Records regulations: The Federal rules restrict any use of the information to criminally investigate or prosecute any alcohol or drug abuse patient.[facility] CenterIn the event this information is protected by the Federal Confidentiality of Alcohol and Drug Abuse Patient Records regulations: The Federal rules restrict any use of the information to criminally investigate or prosecute any alcohol or drug abuse patient.[facility] CenterIn the event this information is protected by the Federal Confidentiality of Alcohol and Drug Abuse Patient Records regulations: The Federal rules restrict any use of the information to criminally investigate or prosecute any alcohol or drug abuse patient.[facility] CenterIn the event this information is protected by the Federal Confidentiality of Alcohol and Drug Abuse Patient Records regulations: The Federal rules restrict any use of the information to criminally investigate or prosecute any alcohol or drug abuse patient.[facility] CenterIn the event this information is protected by the Federal Confidentiality of Alcohol and Drug Abuse Patient Records regulations: The Federal rules restrict any use of the information to criminally investigate or prosecute any alcohol or drug abuse patient.[facility] CenterIn the event this information is protected by the Federal Confidentiality of Alcohol and Drug Abuse Patient Records regulations: The Federal rules restrict any use of the information to criminally investigate or prosecute any alcohol or drug abuse patient.[facility] CenterIn the event this information is protected by the Federal Confidentiality of Alcohol and Drug Abuse Patient Records regulations: The Federal rules restrict any use of the information to criminally investigate or prosecute any alcohol or drug abuse patient.[facility] CenterIn the event this information is protected by the Federal Confidentiality of Alcohol and Drug Abuse Patient Records regulations: The Federal rules restrict any use of the information to criminally investigate or prosecute any alcohol or drug abuse patient.[facility] CenterIn the event this information is protected by the Federal Confidentiality of Alcohol and Drug Abuse Patient Records regulations: The Federal rules restrict any use of the information to criminally investigate or prosecute any alcohol or drug abuse patient.[facility] CenterIn the event this information is protected by the Federal Confidentiality of Alcohol and Drug Abuse Patient Records regulations: The Federal rules restrict any use of the information to criminally investigate or prosecute any alcohol or drug abuse patient.[facility] CenterIn the event this information is protected by the Federal Confidentiality of Alcohol and Drug Abuse Patient Records regulations: The Federal rules restrict any use of the information to criminally investigate or prosecute any alcohol or drug abuse patient.[facility] CenterIn the event this information is protected by the Federal Confidentiality of Alcohol and Drug Abuse Patient Records regulations: The Federal rules restrict any use of the information to criminally investigate or prosecute any alcohol or drug abuse patient.[facility] CenterIn the event this information is protected by the Federal Confidentiality of Alcohol and Drug Abuse Patient Records regulations: The Federal rules restrict any use of the information to criminally investigate or prosecute any alcohol or drug abuse patient.[facility] CenterIn the event this information is protected by the Federal Confidentiality of Alcohol and Drug Abuse Patient Records regulations: The Federal rules restrict any use of the information to criminally investigate or prosecute any alcohol or drug abuse patient.[facility] CenterIn the event this information is protected by the Federal Confidentiality of Alcohol and Drug Abuse Patient Records regulations: The Federal rules restrict any use of the information to criminally investigate or prosecute any alcohol or drug abuse patient.[facility] CenterIn the event this information is protected by the Federal Confidentiality of Alcohol and Drug Abuse Patient Records regulations: The Federal rules restrict any use of the information to criminally investigate or prosecute any alcohol or drug abuse patient.[facility] CenterIn the event this information is protected by the Federal Confidentiality of Alcohol and Drug Abuse Patient Records regulations: The Federal rules restrict any use of the information to criminally investigate or prosecute any alcohol or drug abuse patient.[facility] CenterIn the event this information is protected by the Federal Confidentiality of Alcohol and Drug Abuse Patient Records regulations: The Federal rules restrict any use of the information to criminally investigate or prosecute any alcohol or drug abuse patient.[facility] CenterIn the event this information is protected by the Federal Confidentiality of Alcohol and Drug Abuse Patient Records regulations: The Federal rules restrict any use of the information to criminally investigate or prosecute any alcohol or drug abuse patient.[facility] CenterIn the event this information is protected by the Federal Confidentiality of Alcohol and Drug Abuse Patient Records regulations: The Federal rules restrict any use of the information to criminally investigate or prosecute any alcohol or drug abuse patient.[facility] CenterIn the event this information is protected by the Federal Confidentiality of Alcohol and Drug Abuse Patient Records regulations: The Federal rules restrict any use of the information to criminally investigate or prosecute any alcohol or drug abuse patient.[facility] CenterIn the event this information is protected by the Federal Confidentiality of Alcohol and Drug Abuse Patient Records regulations: The Federal rules restrict any use of the information to criminally investigate or prosecute any alcohol or drug abuse patient.[facility] CenterIn the event this information is protected by the Federal Confidentiality of Alcohol and Drug Abuse Patient Records regulations: The Federal rules restrict any use of the information to criminally investigate or prosecute any alcohol or drug abuse patient.[facility] CenterIn the event this information is protected by the Federal Confidentiality of Alcohol and Drug Abuse Patient Records regulations: The Federal rules restrict any use of the information to criminally investigate or prosecute any alcohol or drug abuse patient.[facility] CenterIn the event this information is protected by the Federal Confidentiality of Alcohol and Drug Abuse Patient Records regulations: The Federal rules restrict any use of the information to criminally investigate or prosecute any alcohol or drug abuse patient.[facility] CenterIn the event this information is protected by the Federal Confidentiality of Alcohol and Drug Abuse Patient Records regulations: The Federal rules restrict any use of the information to criminally investigate or prosecute any alcohol or drug abuse patient.[facility] CenterIn the event this information is protected by the Federal Confidentiality of Alcohol and Drug Abuse Patient Records regulations: The Federal rules restrict any use of the information to criminally investigate or prosecute any alcohol or drug abuse patient.[facility] CenterIn the event this information is protected by the Federal Confidentiality of Alcohol and Drug Abuse Patient Records regulations: The Federal rules restrict any use of the information to criminally investigate or prosecute any alcohol or drug abuse patient.[facility] CenterIn the event this information is protected by the Federal Confidentiality of Alcohol and Drug Abuse Patient Records regulations: The Federal rules restrict any use of the information to criminally investigate or prosecute any alcohol or drug abuse patient.[facility] CenterIn the event this information is protected by the Federal Confidentiality of Alcohol and Drug Abuse Patient Records regulations: The Federal rules restrict any use of the information to criminally investigate or prosecute any alcohol or drug abuse patient.[facility] CenterIn the event this information is protected by the Federal Confidentiality of Alcohol and Drug Abuse Patient Records regulations: The Federal rules restrict any use of the information to criminally investigate or prosecute any alcohol or drug abuse patient.[facility] CenterIn the event this information is protected by the Federal Confidentiality of Alcohol and Drug Abuse Patient Records regulations: The Federal rules restrict any use of the information to criminally investigate or prosecute any alcohol or drug abuse patient.[facility] CenterIn the event this information is protected by the Federal Confidentiality of Alcohol and Drug Abuse Patient Records regulations: The Federal rules restrict any use of the information to criminally investigate or prosecute any alcohol or drug abuse patient.[facility] CenterIn the event this information is protected by the Federal Confidentiality of Alcohol and Drug Abuse Patient Records regulations: The Federal rules restrict any use of the information to criminally investigate or prosecute any alcohol or drug abuse patient.[facility] CenterIn the event this information is protected by the Federal Confidentiality of Alcohol and Drug Abuse Patient Records regulations: The Federal rules restrict any use of the information to criminally investigate or prosecute any alcohol or drug abuse patient.[facility] CenterIn the event this information is protected by the Federal Confidentiality of Alcohol and Drug Abuse Patient Records regulations: The Federal rules restrict any use of the information to criminally investigate or prosecute any alcohol or drug abuse patient.[facility] CenterIn the event this information is protected by the Federal Confidentiality of Alcohol and Drug Abuse Patient Records regulations: The Federal rules restrict any use of the information to criminally investigate or prosecute any alcohol or drug abuse patient.[facility] CenterIn the event this information is protected by the Federal Confidentiality of Alcohol and Drug Abuse Patient Records regulations: The Federal rules restrict any use of the information to criminally investigate or prosecute any alcohol or drug abuse patient.[facility] CenterIn the event this information is protected by the Federal Confidentiality of Alcohol and Drug Abuse Patient Records regulations: The Federal rules restrict any use of the information to criminally investigate or prosecute any alcohol or drug abuse patient.[facility] CenterIn the event this information is protected by the Federal Confidentiality of Alcohol and Drug Abuse Patient Records regulations: The Federal rules restrict any use of the information to criminally investigate or prosecute any alcohol or drug abuse patient.[facility] CenterIn the event this information is protected by the Federal Confidentiality of Alcohol and Drug Abuse Patient Records regulations: The Federal rules restrict any use of the information to criminally investigate or prosecute any alcohol or drug abuse patient.[facility] CenterIn the event this information is protected by the Federal Confidentiality of Alcohol and Drug Abuse Patient Records regulations: The Federal rules restrict any use of the information to criminally investigate or prosecute any alcohol or drug abuse patient.[facility] CenterIn the event this information is protected by the Federal Confidentiality of Alcohol and Drug Abuse Patient Records regulations: The Federal rules restrict any use of the information to criminally investigate or prosecute any alcohol or drug abuse patient.[facility] CenterIn the event this information is protected by the Federal Confidentiality of Alcohol and Drug Abuse Patient Records regulations: The Federal rules restrict any use of the information to criminally investigate or prosecute any alcohol or drug abuse patient.[facility] CenterIn the event this information is protected by the Federal Confidentiality of Alcohol and Drug Abuse Patient Records regulations: The Federal rules restrict any use of the information to criminally investigate or prosecute any alcohol or drug abuse patient.[facility] CenterIn the event this information is protected by the Federal Confidentiality of Alcohol and Drug Abuse Patient Records regulations: The Federal rules restrict any use of the information to criminally investigate or prosecute any alcohol or drug abuse patient.[facility] CenterIn the event this information is protected by the Federal Confidentiality of Alcohol and Drug Abuse Patient Records regulations: The Federal rules restrict any use of the information to criminally investigate or prosecute any alcohol or drug abuse patient.[facility] CenterIn the event this information is protected by the Federal Confidentiality of Alcohol and Drug Abuse Patient Records regulations: The Federal rules restrict any use of the information to criminally investigate or prosecute any alcohol or drug abuse patient.[facility] CenterIn the event this information is protected by the Federal Confidentiality of Alcohol and Drug Abuse Patient Records regulations: The Federal rules restrict any use of the information to criminally investigate or prosecute any alcohol or drug abuse patient.[facility] CenterIn the event this information is protected by the Federal Confidentiality of Alcohol and Drug Abuse Patient Records regulations: The Federal rules restrict any use of the information to criminally investigate or prosecute any alcohol or drug abuse patient.[facility] CenterIn the event this information is protected by the Federal Confidentiality of Alcohol and Drug Abuse Patient Records regulations: The Federal rules restrict any use of the information to criminally investigate or prosecute any alcohol or drug abuse patient.[facility] CenterIn the event this information is protected by the Federal Confidentiality of Alcohol and Drug Abuse Patient Records regulations: The Federal rules restrict any use of the information to criminally investigate or prosecute any alcohol or drug abuse patient.[facility] CenterIn the event this information is protected by the Federal Confidentiality of Alcohol and Drug Abuse Patient Records regulations: The Federal rules restrict any use of the information to criminally investigate or prosecute any alcohol or drug abuse patient.[facility] CenterIn the event this information is protected by the Federal Confidentiality of Alcohol and Drug Abuse Patient Records regulations: The Federal rules restrict any use of the information to criminally investigate or prosecute any alcohol or drug abuse patient.[facility] CenterIn the event this information is protected by the Federal Confidentiality of Alcohol and Drug Abuse Patient Records regulations: The Federal rules restrict any use of the information to criminally investigate or prosecute any alcohol or drug abuse patient.[facility] CenterIn the event this information is protected by the Federal Confidentiality of Alcohol and Drug Abuse Patient Records regulations: The Federal rules restrict any use of the information to criminally investigate or prosecute any alcohol or drug abuse patient.[facility] CenterIn the event this information is protected by the Federal Confidentiality of Alcohol and Drug Abuse Patient Records regulations: The Federal rules restrict any use of the information to criminally investigate or prosecute any alcohol or drug abuse patient.[facility] CenterIn the event this information is protected by the Federal Confidentiality of Alcohol and Drug Abuse Patient Records regulations: The Federal rules restrict any use of the information to criminally investigate or prosecute any alcohol or drug abuse patient.[facility] CenterIn the event this information is protected by the Federal Confidentiality of Alcohol and Drug Abuse Patient Records regulations: The Federal rules restrict any use of the information to criminally investigate or prosecute any alcohol or drug abuse patient.[facility] CenterIn the event this information is protected by the Federal Confidentiality of Alcohol and Drug Abuse Patient Records regulations: The Federal rules restrict any use of the information to criminally investigate or prosecute any alcohol or drug abuse patient.[facility] CenterIn the event this information is protected by the Federal Confidentiality of Alcohol and Drug Abuse Patient Records regulations: The Federal rules restrict any use of the information to criminally investigate or prosecute any alcohol or drug abuse patient.[facility] CenterIn the event this information is protected by the Federal Confidentiality of Alcohol and Drug Abuse Patient Records regulations: The Federal rules restrict any use of the information to criminally investigate or prosecute any alcohol or drug abuse patient.[facility] CenterIn the event this information is protected by the Federal Confidentiality of Alcohol and Drug Abuse Patient Records regulations: The Federal rules restrict any use of the information to criminally investigate or prosecute any alcohol or drug abuse patient.[facility] CenterIn the event this information is protected by the Federal Confidentiality of Alcohol and Drug Abuse Patient Records regulations: The Federal rules restrict any use of the information to criminally investigate or prosecute any alcohol or drug abuse patient.[facility] CenterIn the event this information is protected by the Federal Confidentiality of Alcohol and Drug Abuse Patient Records regulations: The Federal rules restrict any use of the information to criminally investigate or prosecute any alcohol or drug abuse patient.[facility] CenterIn the event this information is protected by the Federal Confidentiality of Alcohol and Drug Abuse Patient Records regulations: The Federal rules restrict any use of the information to criminally investigate or prosecute any alcohol or drug abuse patient.[facility] Reason for Visit (unrecogniz ed section and content) Reason Comments PT Progress Note Specialty Diagnoses / Procedures Referred By Contac t Referred To Contact [facility] Diagnoses S/P total knee arthroplasty, right Procedures CONSULT TO PHYSICAL THERAPY PHYSICAL THERAPY EVALUATION HIGH COMPLEX 45 MINS Nathaniel Vasqeuz MD [address] [place] [address] Phone: tel: fax: [facility] [address] [place] [address] [place] [address] Referral ID Status Reason Start Date Expiration Date Visits Requested Visits Authorized [id number] Authorized Auto-Generat ed Referral 09/07/2024 09/06/2025 30 30 Reason Comments PT Re-eval Reason Comments PT Eval Reason Comments Physical Therapy Specialty Diagnoses / Procedures Referred By Contac t Referred To Contact [facility] Diagnoses Bilateral primary osteoarthritis of knee Chronic pain of left knee Procedures CONSULT TO PHYSICAL THERAPY PHYSICAL THERAPY EVALUATION HIGH COMPLEX 45 MINS Nydia Wade PA-C [address] [place] [address] [facility] [address] [address] Referral ID Status Reason Start Date Expiration Date Visits Requested Visits Authorized [id number] Authorized Auto-Generat ed Referral 09/07/2023 09/06/2024 30 30 Reason Comments Opened In Error Reason Comments Spirometry Specialty Diagnoses / Procedures Referred By Contac t Referred To Contact [facility] Diagnoses ILD (interstitial lung disease) ([facility]) Procedures SPIROMETRY WITH DILATOR IF OBSTRUCTED BRNCDILAT RSPSE SPMTRY PRE&[place] [address] [place] [address] [facility] [place] [address] [place] [address] Referral ID Status Reason Start Date Expiration Date V isits Requested Visits Authorized [id number] Closed Auto-Generate d Referral 11/12/2021 12/11/2022 1 1 Specialty Diagnoses / Procedures Referred By Contac t Referred To Contact [facility] Diagnoses ILD (interstitial lung disease) (HCC) Procedures LUNG DIFFUSION CAPACITY (DLCO) DIFFUSING CAPACITY Constance Barahona MD [address] [place] [address] [place] [address] Referral ID Status Reason Start Date Expiration Date V isits Requested Visits Authorized [id number] Closed Auto-Generate d Referral 11/12/2021 12/11/2022 1 1 Reason Comments Consult Reason Comments Other Reason Onset Date Comments SPP Inflammatory Conditions - Treatment Referral 12/20/2021 [employer] Insurance Authorization 12/20/2021 [place] Submi ssion pending Reason Comments Results Reason Comments Radiology CT Specialty Diagnoses / Procedures Referred By Contac t Referred To Contact CT IMAGING Diagnoses Interstitial pulmonary disease (HCC) Procedures CT CHEST WO IVCON DIAGNOSTIC COMPUTED TOMOGRAPHY THORAX W/O CNTRST Dimitris Lopez MD [address] [place] [address] [address] Referral ID Status Reason Start Date Expiration Date V isits Requested Visits Authorized [id number] Closed Auto-Generate d Referral 12/18/2021 03/20/2022 1 1 Reason Onset Date Comments SPP Inflammatory Conditions - Treatment Referral 01/23/2022 [facility] Reason Comments Established Patient Reason Onset Date Comments SPP Inflammatory Conditions - Medication Refill 02/20/2022 [facility] Reason Onset Date Comments Refill Request 03/06/2022 Reason Comments Refill Request Reason Onset Date Comments SPP Inflammatory Conditions - Follow-up 04/15/20 [employer] Insurance Authorization 04/15/2022 Prior Au th Renewal Submission Pending Reason Onset Date Comments SPP Inflammatory Conditions - Medication Refill 04/18/2022 [employer] Reason Onset Date Comments SPP Inflammatory Conditions - Medication Refill 05/16/2022 [employer] Reason Onset Date Comments SPP Inflammatory Conditions - Treatment Referral 06/13/2022 [employer] Insurance Authorization 06/13/2022 Prior Au th Submission Pending Reason Onset Date Comments Medication Request 07/11/2022 Reason Onset Date Comments SPP Inflammatory Conditions - Medication Refill 07/17/2022 [facility] Reason Onset Date Comments Refill Request 08/04/2022 Reason Comments Non-Chemotherapy Treatment Specialty Diagnoses / Procedures Referred By Eliel lópez Referred To Contact Diagnoses Osteopenia, unspecified location Procedures INJECTION, ZOLEDRONIC ACID, 1 MG Michelle Simpson, CISCO CONSULTANT.BUILDING MAINTENANCE SUPERVISOR [address] [place] [address] [facility] [place] [address] [place] [address] Referral ID Status Reason Start Date Expiration Date V isits Requested Visits Authorized [id number] Authorized 02/06/2022 09/06/2022 99 99 Reason Comments Difficulty Breathing Reason Comments left toe pain Left toe pain-fell t his am Reason Onset Date Comments SPP Inflammatory Conditions - Medication Refill 08/18/2022 [facility] Reason Comments Benefits Investigation Reason Comments New Pain Fracture Specialty Diagnoses / Procedures Referred By Eliel lópez Referred To Contact Podiatry Diagnoses Foot injury, left, initial encounter Procedures CONSULT TO PODIATRY OFFICE/OUTPATIENT NEW HIGH MDM 60-74 MINUTES Tamir Fitzpatrick, CISCO CONSULTANT.BUILDING MAINTENANCE SUPERVISOR [address] [place] [address] Referral ID Status Reason Start Date Expiration Date V isits Requested Visits Authorized [id number] Closed PCP Requested Referral 08/14/2022 08/14/2023 1 1 Reason Comments Results Reason Onset Date Comments SPP Inflammatory Conditions - Follow-up 10/13/19 [employer] Insurance Authorization 10/13/2022 Prior Au th Renewal Submitted Reason Onset Date Comments SPP Inflammatory Conditions - Medication Refill 10/16/2022 [facility] Reason Comments Cough Runny nose, diarrhea , chest congestion, sore throat, SMITH x 3 days Reason Comments Established Patient Reason Onset Date Comments appt 12/01/2022 Due for colon ca ncer screening Reason Comments Medication Request paxlovid Reason Comments Covid Positive Reason Comments Refill Request [facility] Managed Refill Specialty Diagnoses / Procedures Referred By Contac t Referred To Contact Diagnoses Seropositive rheumatoid arthritis (HCC) Procedures INJ RUXIENCE, 10 MG Michelle Simpson, CISCO CONSULTANT.BUILDING MAINTENANCE SUPERVISOR [address] [place] [address] [facility] [address] [place] [address] Referral ID Status Reason Start Date Expiration Date V isits Requested Visits Authorized [id number] Authorized 12/10/2022 06/16/2023 2 2 Reason Comments Pain Pt reported fall x2 wks prior, (RT) hip pain radiating to foot, x1 wks. Reason Comments Appointment Referral was made to [facility] Reason Comments Patient Question Reason Comments patient update/sciatic pain Reason Comments Edema Bilateral leg swelli ng x 4 daysRash on back of neck x 2 days Reason Comments Acute Visit Left leg swelling Reason Comments Flare up Reason Comments Medication Request Reason Comments Radiology US Specialty Diagnoses / Procedures Referred By Contac t Referred To Contact US IMAGING Diagnoses Leg swelling Procedures US DVT LOWER BILATERAL DUP-SCAN XTR VEINS COMPLETE BILATERAL STUDY Demetria Aquino, CISCO CONSULTANT.BUILDING MAINTENANCE SUPERVISOR [address] [place] [address] [place] [address] Referral ID Status Reason Start Date Expiration Date V isits Requested Visits Authorized [id number] Closed Auto-Generate d Referral 03/04/2023 04/02/2024 1 1 Reason Comments Symptoms Reason Comments Established Patient 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 Comments 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 Specialty Diagnoses / Procedures Referred By Contac t Referred To Contact Diagnoses Seropositive rheumatoid arthritis (HCC) 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) Procedures INJ RUXIENCE, 10 MG Michelle Simpson, BUILDING MAINTENANCE SUPERVISOR [address] [place] [address] [place] [address] Referral ID Status Reason Start Date Expiration Date V isits Requested Visits Authorized [id number] Authorized 02/12/2023 12/14/2023 1 1 Referral ID Status Reason Start Date Expiration Date V isits Requested Visits Authorized [id number] Authorized 02/12/2023 12/14/2023 2 2 Reason Comments New Knee Pain Reason Comments F/U 3 Month Reason Comments Immunotherapy Specialty Diagnoses / Procedures Referred By Contac t Referred To Contact Diagnoses 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 Galloway) Reason Comments Appointment Rescheduled Reason Onset Date Comments Medication Request 04/08/2024 Returning call from the office Medication Problem Reason Comments Established Patient Knee Pain Reason Comments Established Patient Knee Pain Reason Comments F/U 3 Month Reason Comments Diarrhea chills, dizziness an d fatigue x 4 days off and on Reason Comments Follow Up ER follow up for diz zy Reason Comments [facility] ER f/u Reason Comments Acute Visit wart removel Reason Comments Radio Gen RMP Reason Comments Radiology MRI Specialty Diagnoses / Procedures Referred By Contac t Referred To Contact MR IMAGING Diagnoses Syncope, unspecified syncope type Procedures MRI BRAIN WO/W IVCON MRI BRAIN BRAIN STEM W/O W/CONTRAST MATERIAL Anayeli Ng, CISCO CONSULTANT.BUILDING MAINTENANCE SUPERVISOR [address] [place] [address] [address] [place] [address] Referral ID Status Reason Start Date Expiration Date V isits Requested Visits Authorized [id number] Closed Auto-Generat ed Referral Patient Cleared - Admin/Chairm an/Director advise to proceed or did not respond 05/26/2024 08/25/2024 1 1 Reason Comments Results MRI Brain Specialty Diagnoses / Procedures Referred By Janelac t Referred To Contact CT IMAGING Diagnoses Primary osteoarthritis of both knees Rheumatoid arthritis involving both knees, unspecified whether rheumatoid factor present (HCC) Preop examination Procedures CT KNEE WO IVCON RIGHT CT LOWER EXTREMITY W/O CONTRAST MATERIAL Nathaniel Vasquez MD [address] [place] [address] [facility] [place] [address] Referral ID Status Reason Start Date Expiration Date V isits Requested Visits Authorized [id number] Closed Auto-Generate d Referral 07/11/2024 05/20/2025 1 1 Reason Onset Date Comments Refill Request 08/01/2024 Reason Comments Pre-Op Teaching Reason Comments Thyroid Cancer Reason Comments Consult Reason Comments Home Care Confirmation Call Reason Comments Home Care nausea Specialty Diagnoses / Procedures Referred By Eliel t Referred To Contact [facility] [address] [place] [address] Referral ID Status Reason Start Date Expiration Date Visits Re quested Visits Authorized [id number] 1 1 Reason Onset Date Comments Refill Request 08/29/2024 Reason Comments Home Care Post op dressing rem oval Reason Comments Rx Refills Reason Onset Date Comments Refill Request 09/08/2024 Reason Comments Knee Replacement Post Op Reason Onset Date Comments Refill Request 09/13/2024 Reason Onset Date Comments Refill Request 09/29/2024 Reason Comments Hospital F/U ER 09/23/2024 [facility] [facility] Reason Comments Post Op Knee Replacement Specialty Diagnoses / Procedures Referred By Janelac t Referred To Contact US IMAGING Diagnoses Calculus of gallbladder without cholecystitis without obstruction Upper abdominal pain Procedures US ABD RIGHT UPPER QUADRANT US ABDOMINAL REAL TIME W/IMAGE LIMITED Sal[place] Samuel, CISCO CONSULTANT.BUILDING MAINTENANCE SUPERVISOR [address] [place] [address] [place] [address] Referral ID Status Reason Start Date Expiration Date V isits Requested Visits Authorized [id number] Closed Auto-Generate d Referral 09/30/2024 10/30/2025 1 1 Reason Comments Consult Calculus of gallblad [place] Specialty Diagnoses / Procedures Referred By Contac t Referred To Contact General Surgery Diagnoses Calculus of gallbladder without cholecystitis without obstruction Upper abdominal pain Procedures CONSULT TO GENERAL SURGERY OFFICE/OUTPATIENT [facility] 60 MINUTES [place] Samuel, CISCO CONSULTANT.BUILDING MAINTENANCE SUPERVISOR [address] [place] [address] Referral ID Status Reason Start Date Expiration Date V isits Requested Visits Authorized [id number] Closed PCP Requested Referral 09/30/2024 09/30/2025 1 1 Reason Comments New Patient Memory, Vertigo- pt states her appt is for passing out, white matter seen on MRI, no memory issues per pt, fatigue Reason Comments Preparations For Surgery Reason Comments LESION, SKIN Reason Onset Date Comments Refill Request 11/02/2024 Reason Comments Follow Up Gallbladder removal Reason Comments Home Care Reason Onset Date Comments Refill Request 11/24/2024 Reason Comments Knee Replacement Post Op Reason Comments Transition Of Care Reason Comments Home Care PT discharge and sma ll rash Reason Comments Surgery Reason Comments Transition Of Care No contact Reason Comments Flu Like Symptoms Cough, NVD, bodyache s, chills, fever, SMITH x1 week Reason Comments Knee Pain Knee Replacement Follow Up Established Patient Reason Comments Thyroid Cancer US results Care Teams (unrecognized sec tion and content) Steam Clean Machine Operator Relationship Specialty Start Date End Date Laura Robertson MD [address] [place] [address] PCP - General Family Practice 02/06/20 [facility] [place] 06/08/21 Steam Clean Machine Operator Relationship Specialty Start Date End Date Laura Robertson MD [address] [place] [address] PCP - General Family Practice 02/06/20 [facility] [place] 06/08/21 Steam Clean Machine Operator Relationship Specialty Start Date End Date Laura Robertson MD [address] [place] [address] PCP - General Family Practice 02/06/20 [facility] [place] 06/08/21 Steam Clean Machine Operator Relationship Specialty Start Date End Date Laura Robertson MD [address] [place] [address] PCP - General Family Practice 02/06/20 [facility] [place] 06/08/21 Steam Clean Machine Operator Relationship Specialty Start Date End Date Laura Robertson MD [address] [place] [address] PCP - General Family Practice 02/06/20 [facility] [place] 06/08/21 Steam Clean Machine Operator Relationship Specialty Start Date End Date Laura Robertson MD [address] [place] [address] PCP - General Family Practice 02/06/20 [facility] [place] 06/08/21 Steam Clean Machine Operator Relationship Specialty Start Date End Date Laura Robertson MD [address] [place] [address] PCP - General Family Practice 02/06/20 [facility] [place] 06/08/21 Steam Clean Machine Operator Relationship Specialty Start Date End Date Laura Robertson MD [address] [place] [address] PCP - General Family Practice 02/06/20 [facility] [place] 06/08/21 Steam Clean Machine Operator Relationship Specialty Start Date End Date Laura Robertson MD [address] [place] [address] PCP - General Family Practice 02/06/20 [facility] [place] 06/08/21 Steam Clean Machine Operator Relationship Specialty Start Date End Date Laura Robertson MD [address] [place] [address] PCP - General Family Practice 02/06/20 [facility] [place] 06/08/21 Steam Clean Machine Operator Relationship Specialty Start Date End Date Laura Robertson MD [address] [place] [address] PCP - General Family Practice 02/06/20 [facility] [place] 06/08/21 Steam Clean Machine Operator Relationship Specialty Start Date End Date Laura Robertson MD [address] [place] [address] PCP - General Family Practice 02/06/20 [facility] [place] 06/08/21 Steam Clean Machine Operator Relationship Specialty Start Date End Date Laura Robertson MD [address] [place] [address] PCP - General Family Medicine 02/06/20 [facility] [place] 06/08/21 Steam Clean Machine Operator Relationship Specialty Start Date End Date Laura Robertson MD [address] [place] [address] PCP - General Family Medicine 02/06/20 [facility] [place] 06/08/21 Steam Clean Machine Operator Relationship Specialty Start Date End Date Laura Robertson MD [address] [place] [address] PCP - General Family Medicine 02/06/20 [facility] [place] 06/08/21 Steam Clean Machine Operator Relationship Specialty Start Date End Date Laura Robertson MD [address] [place] [address] PCP - General Family Medicine 02/06/20 [facility] [place] 06/08/21 Steam Clean Machine Operator Relationship Specialty Start Date End Date Laura Robertson MD [address] [place] [address] PCP - General Family Medicine 02/06/20 [facility] [place] 06/08/21 Steam Clean Machine Operator Relationship Specialty Start Date End Date Laura Robertson MD [address] [place] [address] PCP - General Family Medicine 02/06/20 [facility] [place] 06/08/21 Steam Clean Machine Operator Relationship Specialty Start Date End Date Laura Robertson MD [address] [place] [address] PCP - General Family Medicine 02/06/20 [facility], [place] 06/08/21 Steam Clean Machine Operator Relationship Specialty Start Date End Date Laura Robertson MD [address] [place] [address] PCP - General Family Medicine 02/06/20 [facility] [place] 06/08/21 Steam Clean Machine Operator Relationship Specialty Start Date End Date Laura Robertson MD [address] [place] [address] PCP - General Family Medicine 02/06/20 [facility] [place] 06/08/21 Steam Clean Machine Operator Relationship Specialty Start Date End Date Laura Robertson MD [address] [place] [address] PCP - General Family Medicine 02/06/20 [facility] [place] 06/08/21 Steam Clean Machine Operator Relationship Specialty Start Date End Date Laura Robertson MD [address] [place] [address] PCP - General Family Medicine 02/06/20 [facility] [place] 06/08/21 Steam Clean Machine Operator Relationship Specialty Start Date End Date Laura Robertson MD [address] [place] [address] PCP - General Family Medicine 02/06/20 [facility] [place] 06/08/21 Steam Clean Machine Operator Relationship Specialty Start Date End Date Laura Robertson MD [address] [place] [address] PCP - General Family Medicine 02/06/20 [facility] [place] 06/08/21 Steam Clean Machine Operator Relationship Specialty Start Date End Date Laura Robertson MD [address] [place] [address] PCP - General Family Medicine 02/06/20 [facility] [place] 06/08/21 Steam Clean Machine Operator Relationship Specialty Start Date End Date Laura Robertson MD [address] [place] [address] PCP - General Family Medicine 02/06/20 [facility] [place] 06/08/21 Steam Clean Machine Operator Relationship Specialty Start Date End Date Laura Robertson MD [address] [place] [address] PCP - General Family Medicine 02/06/20 [facility] [place] 06/08/21 Steam Clean Machine Operator Relationship Specialty Start Date End Date Laura Robertson MD [address] [place] [address] PCP - General Family Medicine 02/06/20 [facility] [place] 06/08/21 Steam Clean Machine Operator Relationship Specialty Start Date End Date Laura Robertson MD [address] [place] [address] PCP - General Family Medicine 02/06/20 [facility] [place] 06/08/21 Steam Clean Machine Operator Relationship Specialty Start Date End Date Laura Robertson MD [address] [place] [address] PCP - General Family Medicine 02/06/20 [facility] [place] 06/08/21 Steam Clean Machine Operator Relationship Specialty Start Date End Date Laura Robertson MD [address] [place] [address] PCP - General Family Medicine 02/06/20 [facility] [place] 06/08/21 Steam Clean Machine Operator Relationship Specialty Start Date End Date Laura Robertson MD [address] [place] [address] PCP - General Family Medicine 02/06/20 [facility] [place] 06/08/21 Steam Clean Machine Operator Relationship Specialty Start Date End Date Laura Robertson MD [address] [place] [address] PCP - General Family Medicine 02/06/20 [facility] [place] 06/08/21 Steam Clean Machine Operator Relationship Specialty Start Date End Date Laura Robertson MD [address] [place] [address] PCP - General Family Medicine 02/06/20 [facility] [place] 06/08/21 Steam Clean Machine Operator Relationship Specialty Start Date End Date Laura Robertson MD [address] [place] [address] PCP - General Family Medicine 02/06/20 [facility] [place] 06/08/21 Steam Clean Machine Operator Relationship Specialty Start Date End Date Laura Robertson MD [address] [place] [address] PCP - General Family Medicine 02/06/20 [facility] [place] 06/08/21 Steam Clean Machine Operator Relationship Specialty Start Date End Date Laura Robertson MD [address] [place] [address] PCP - General Family Medicine 02/06/20 [facility] [place] 06/08/21 Steam Clean Machine Operator Relationship Specialty Start Date End Date Laura Robertson MD [address] [place] [address] PCP - General Family Medicine 02/06/20 [facility] [place] 06/08/21 Steam Clean Machine Operator Relationship Specialty Start Date End Date Laura Robertson MD [address] [place] [address] PCP - General Family Medicine 02/06/20 [facility], [place] 06/08/21 Steam Clean Machine Operator Relationship Specialty Start Date End Date Laura Robertson MD [address] [place] [address] PCP - General Family Medicine 02/06/20 [facility], [place] 06/08/21 Steam Clean Machine Operator Relationship Specialty Start Date End Date Laura Robertson MD [address] [place] [address] PCP - General Family Medicine 02/06/20 [facility] [place] 06/08/21 Steam Clean Machine Operator Relationship Specialty Start Date End Date Laura Robertson MD [address] [place] [address] PCP - General Family Medicine 02/06/20 [facility] [place] 06/08/21 Steam Clean Machine Operator Relationship Specialty Start Date End Date Laura Robertson MD [address] [place] [address] PCP - General Family Medicine 02/06/20 [facility] [place] 06/08/21 Steam Clean Machine Operator Relationship Specialty Start Date End Date Laura Robertson MD [address] [place] [address] PCP - General Family Medicine 02/06/20 [facility] [place] 06/08/21 Steam Clean Machine Operator Relationship Specialty Start Date End Date Laura Robertson MD [address] [place] [address] PCP - General Family Medicine 02/06/20 [facility] [place] 06/08/21 Steam Clean Machine Operator Relationship Specialty Start Date End Date Laura Robertson MD [address] [place] [address] PCP - General Family Medicine 02/06/20 [facility] [place] 06/08/21 Steam Clean Machine Operator Relationship Specialty Start Date End Date Laura Robertson MD [address] [place] [address] PCP - General Family Medicine 02/06/20 [facility] [place] 06/08/21 Steam Clean Machine Operator Relationship Specialty Start Date End Date Laura Robertson MD [address] [place] [address] PCP - General Family Medicine 02/06/20 [facility] [place] 06/08/21 Steam Clean Machine Operator Relationship Specialty Start Date End Date Laura Robertson MD [address] [place] [address] PCP - General Family Medicine 02/06/20 [facility] [place] 06/08/21 Steam Clean Machine Operator Relationship Specialty Start Date End Date Laura Robertson MD [address] [place] [address] PCP - General Family Medicine 02/06/20 [facility] [place] 06/08/21 Steam Clean Machine Operator Relationship Specialty Start Date End Date Laura Robertson MD [address] [place] [address] PCP - General Family Medicine 02/06/20 [facility] [place] 06/08/21 Steam Clean Machine Operator Relationship Specialty Start Date End Date Laura Robertson MD [address] [place] [address] PCP - General Family Medicine 02/06/20 [facility] 06/08[facility] Steam Clean Machine Operator Relationship Specialty Start Date End Date Laura Robertson MD [address] [place] [address] PCP - General Family Medicine 02/06/20 [facility] [place] 06/08/21 Steam Clean Machine Operator Relationship Specialty Start Date End Date Laura Robertson MD [address] [place] [address] PCP - General Family Medicine 02/06/20 [facility] [facility] 06/08/21 Steam Clean Machine Operator Relationship Specialty Start Date End Date Laura Robertson MD [address] [place] [address] PCP - General Family Medicine 02/06/20 [facility], [facility] 06/08/21 Steam Clean Machine Operator Relationship Specialty Start Date End Date Laura Robertson MD [address] [place] [address] PCP - General Family Medicine 02/06/20 [facility], [place] 06/08/21 Steam Clean Machine Operator Relationship Specialty Start Date End Date Laura Robertson MD [address] [place] [address] PCP - General Family Medicine 02/06/20 [facility], [facility] 06/08/21 Steam Clean Machine Operator Relationship Specialty Start Date End Date Laura Robertson MD [address] [place] [address] PCP - General Family Medicine 02/06/20 Eh, [facility] 06/08/21 Steam Clean Machine Operator Relationship Specialty Start Date End Date Luara Robertson MD [address] [place] [address] PCP - General Family Medicine 02/06/20 [facility], [facility] 06/08/21 Steam Clean Machine Operator Relationship Specialty Start Date End Date Laura Robertson MD [address] [place] [address] PCP - General Family Medicine 02/06/20 Eh, [facility] 06/08/21 SissenTanner, [facility] [address] [place] [address] Specialty Social Work Faculty Member Orthopedics 04/21/24 09/28/24 Steam Clean Machine Operator Relationship Specialty Start Date End Date Laura Robertson MD [address] [place] [address] PCP - General Family Medicine 02/06/20 [facility], [facility] 06/08/21 Sissen, Tanner, [facility] [address] [place] [address] Specialty Social Work Faculty Member Orthopedics 04/21/24 09/28/24 Steam Clean Machine Operator Relationship Specialty Start Date End Date Laura Robertson MD [address] [place] [address] PCP - General Family Medicine 02/06/20 [facility], [place] 06/08/21 Steam Clean Machine Operator Relationship Specialty Start Date End Date Laura Robertson MD [address] [place] [address] PCP - General Family Medicine 02/06/20 Eh, [facility] 06/08/21 SissenLisandroin, [facility] [address] [place] [address] Specialty Social Work Faculty Member Orthopedics 04/21/24 09/28/24 Steam Clean Machine Operator Relationship Specialty Start Date End Date Laura Robertson MD [address] [place] [address] PCP - General Family Medicine 02/06/20 [facility], [facility] 06/08/21 SissenTanner, [facility] [address] [place] [address] Specialty Social Work Faculty Member Orthopedics 04/21/24 09/28/24 Steam Clean Machine Operator Relationship Specialty Start Date End Date Laura Robertson MD [address] [place] [address] PCP - General Family Medicine 02/06/20 [facility], [place] 06/08/21 Steam Clean Machine Operator Relationship Specialty Start Date End Date Laura Robertson MD [address] [place] [address] PCP - General Family Medicine 02/06/20 [facility], [facility] 06/08/21 SissenTanner, [facility] [address] [place] [address] Specialty Social Work Faculty Member Orthopedics 04/21/24 09/28/24 Steam Clean Machine Operator Relationship Specialty Start Date End Date Laura Robertson MD [address] [place] [address] PCP - General Family Medicine 02/06/20 [facility], [facility] 06/08/21 Steam Clean Machine Operator Relationship Specialty Start Date End Date Laura Robertson MD [address] [place] [address] PCP - General Family Medicine 02/06/20 [facility], [facility] 06/08/21 Steam Clean Machine Operator Relationship Specialty Start Date End Date Laura Robertson MD [address] [place] [address] PCP - General Family Medicine 02/06/20 [facility], [place] 06/08/21 Steam Clean Machine Operator Relationship Specialty Start Date End Date Laura Robertson MD [address] [place] [address] PCP - General Family Medicine 02/06/20 [facility], [place] 06/08/21 Steam Clean Machine Operator Relationship Specialty Start Date End Date Laura Robertson MD [address] [place] [address] PCP - General Family Medicine 02/06/20 [facility], [facility] 06/08/21 Steam Clean Machine Operator Relationship Specialty Start Date End Date Laura Robertson MD [address] [place] [address] PCP - General Family Medicine 02/06/20 [facility], [place] 06/08/21 Tanner Lala, [facility] [address] [place] [address] Specialty Social Work Faculty Member Orthopedics 04/21/24 09/28/24 Steam Clean Machine Operator Relationship Specialty Start Date End Date Laura Robertson MD [address] [place] [address] PCP - General Family Medicine 02/06/20 Jadyn Smith, [facility] Social Work Faculty Member Other 05/07/16 02/07/21 Steam Clean Machine Operator Relationship Specialty Start Date End Date Douglas Robin PCP - General 06/20/05 07/05/16 Steam Clean Machine Operator Relationship Specialty Start Date End Date Laura Robertson MD [address] [place] [address] PCP - General Family Medicine 02/06/20 [facility], [facility] 06/08/21 Tanner Lala, [facility] [address] [place] [address] Specialty Social Work Faculty Member Orthopedics 04/21/24 09/28/24 Steam Clean Machine Operator Relationship Specialty Start Date End Date Laura Robertson MD [address] [place] [address] PCP - General Family Medicine 02/06/20 [facility], [facility] 06/08/21 Sissen, Tanner, [facility] [address] [place] [address] Specialty Social Work Faculty Member Orthopedics 04/21/24 09/28/24 Steam Clean Machine Operator Relationship Specialty Start Date End Date Laura Robertson MD [address] [place] [address] PCP - General Family Medicine 02/06/20 [facility], [facility] 06/08/21 Sissen, Tanner, [facility] [address] [place] [address] Specialty Social Work Faculty Member Orthopedics 04/21/24 09/28/24 Steam Clean Machine Operator Relationship Specialty Start Date End Date Laura Robertson MD [address] [place] [address] PCP - General Family Medicine 02/06/20 [facility], [facility] 06/08/21 Sissen, Tanner, [facility] [address] [place] [address] Specialty Social Work Faculty Member Orthopedics 04/21/24 09/28/24 Steam Clean Machine Operator Relationship Specialty Start Date End Date Laura Robertson MD [address] [place] [address] PCP - General Family Medicine 02/06/20 [facility], [facility] 06/08/21 Sissen, Tanner, [facility] [address] [place] [address] Specialty Social Work Faculty Member Orthopedics 04/21/24 09/28/24 Anayeli Ng APRN.CNP [address] [place], [place] [address] [facility] 08/14/24 Nathaniel Vasquez MD [address] [place] [address] Home Care Provider Orthopedics 08/23/24 Steam Clean Machine Operator Relationship Specialty Start Date End Date Laura Robertson MD [address] [place] [address] PCP - General Family Medicine 02/06/20 Eh, [facility] 06/08/21 Tanner Lala, [facility] [address] [place] [address] Specialty Social Work Faculty Member Orthopedics 04/21/24 09/28/24 Anayeli Ng APRN.BUILDING MAINTENANCE SUPERVISOR [address] [place] [address] [facility] 08/14/24 Nathaniel Vasquez MD [address] [place] [address] Home Care Provider Orthopedics 08/23/24 Salinas Samuel APRN.BUILDING MAINTENANCE SUPERVISOR [address] [place] [address] [facility] 08/23/24 Margaux Johns, PT [address] [place] [address] Peoplesoft Developer Post Acute Care 08/24/24 Steam Clean Machine Operator Relationship Specialty Start Date End Date Laura Robertson MD [address] [place] [address] PCP - General Family Medicine 02/06/20 [facility], [facility] 06/08/21 Tanner Lala, [facility] [address] [place] [address] Specialty Social Work Faculty Member Orthopedics 04/21/24 09/28/24 Anayeli Ng APRN.BUILDING MAINTENANCE SUPERVISOR [address] [place] [address] [facility] 08/14/24 Nathaniel Vasquez MD [address] [place] [address] Home Care Provider Orthopedics 08/23/24 Salinas Samuel APRN.BUILDING MAINTENANCE SUPERVISOR [address] [place] [address] [facility] 08/23/24 Margaux Johns, PT [address] [place] [address] Peoplesoft Developer Post Acute Care 08/24/24 Steam Clean Machine Operator Relationship Specialty Start Date End Date Laura Robertson MD [address] [place] [address] PCP - General Family Medicine 02/06/20 [facility], [facility] 06/08/21 Tanner Lala, [facility] [address] [place] [address] Specialty Social Work Faculty Member Orthopedics 04/21/24 09/28/24 Anayeli Ng APRN.BUILDING MAINTENANCE SUPERVISOR [address] [place] [address] [facility] 08/14/24 Nathaniel Vasquez MD [address] [place] [address] Home Care Provider Orthopedics 08/23/24 Salinas Samuel APRN.BUILDING MAINTENANCE SUPERVISOR [address] [place] [address] [facility] 08/23/24 Margaux Johns, PT [address] [place] [address] Peoplesoft Developer Post Acute Care 08/24/24 Steam Clean Machine Operator Relationship Specialty Start Date End Date Laura Robertson MD [address] [place] [address] PCP - General Family Medicine 02/06/20 [facility], [facility] 06/08/21 Tanner Lala, [facility] [address] [place] [address] Specialty Social Work Faculty Member Orthopedics 04/21/24 09/28/24 Anayeli Ng APRN.BUILDING MAINTENANCE SUPERVISOR [address] [place] [address] [facility] 08/14/24 Nathaniel Vasquez MD [address] [place] [address] Home Care Provider Orthopedics 08/23/24 Salinas Samuel APRN.BUILDING MAINTENANCE SUPERVISOR [address] [place] [address] [facility] 08/23/24 Margaux Johns, PT [address] [place] [address] Peoplesoft Developer Post Acute Care 08/24/24 Steam Clean Machine Operator Relationship Specialty Start Date End Date Laura Robertson MD [address] [place] [address] PCP - General Family Medicine 02/06/20 [facility], [facility] 06/08/21 Tanner Lala, [facility] [address] [place] [address] Specialty Social Work Faculty Member Orthopedics 04/21/24 09/28/24 Anayeli Ng APRN.BUILDING MAINTENANCE SUPERVISOR [address] [place] [address] [facility] 08/14/24 Nathaniel Vasquez MD [address] [place] [address] Home Care Provider Orthopedics 08/23/24 Salinas Samuel APRN.BUILDING MAINTENANCE SUPERVISOR [address] [place] [address] [facility] 08/23/24 Margaux Johns, PT [address] [place] [address] Peoplesoft Developer Post Acute Care 08/24/24 Steam Clean Machine Operator Relationship Specialty Start Date End Date Laura Robertson MD [address] [place], [place] [address] PCP - General Family Medicine 02/06/20 [facility], [facility] 06/08/21 Tanner Lala, [facility] [address] [place] [address] Specialty Social Work Faculty Member Orthopedics 04/21/24 09/28/24 Anayeli Ng APRN.BUILDING MAINTENANCE SUPERVISOR [address] [place] [address] [facility] 08/14/24 Nathaniel Vasquez MD [address] [place] [address] Home Care Provider Orthopedics 08/23/24 Salinas Samuel APRN.BUILDING MAINTENANCE SUPERVISOR [address] [place], [place] 675[address] [phone] [facility] 08/23/24 Margaux Johns, PT [address] [place] [address] Peoplesoft Developer Post Acute Care 08/24/24 Steam Clean Machine Operator Relationship Specialty Start Date End Date Laura Robertson MD [address] [place] [address] PCP - General Family Medicine 02/06/20 [facility], [facility] 06/08/21 SisTanner danielson, [facility] [address] [place] [address] Specialty Social Work Faculty Member Orthopedics 04/21/24 09/28/24 Anayeli Ng APRN.BUILDING MAINTENANCE SUPERVISOR [address] [place] [address] [facility] 08/14/24 Nathaniel Vasquez MD [address] [place] [address] Home Care Provider Orthopedics 08/23/24 Salinas Samuel, GARRY.BUILDING MAINTENANCE SUPERVISOR [address] [place] [address] [facility] 08/23/24 Margaux Johns, PT [address] [place] [address] Peoplesoft Developer Post Acute Care 08/24/24 Steam Clean Machine Operator Relationship Specialty Start Date End Date Laura Robertson MD [address] [place] [address] PCP - General Family Medicine 02/06/20 [facility], [facility] 06/08/21 SissenTanner, [facility] [address] [place] [address] Specialty Social Work Faculty Member Orthopedics 04/21/24 09/28/24 Anayeli Ng APRN.BUILDING MAINTENANCE SUPERVISOR [address] [place], [place] [address] [facility] 08/14/24 Nathaniel Vasquez MD [address] [place] [address] Home Care Provider Orthopedics 08/23/24 Salinas Samuel APRN.BUILDING MAINTENANCE SUPERVISOR [address] [place] [address] [facility] 08/23/24 Margaux Johns, PT [address] [place] [address] Peoplesoft Developer Post Acute Care 08/24/24 Steam Clean Machine Operator Relationship Specialty Start Date End Date Laura Robertson MD [address] [place] [address] PCP - General Family Medicine 02/06/20 p, [facility] 06/08/21 Tanner Lala [facility] [address] [place] [address] Specialty Social Work Faculty Member Orthopedics 04/21/24 09/28/24 Anayeli Ng, GARRY.BUILDING MAINTENANCE SUPERVISOR [address] [place] [address] [facility] 08/14/24 Nathaniel Vasquez MD [address] [place] [address] Home Care Provider Orthopedics 08/23/24 Salinas Samuel APRN.BUILDING MAINTENANCE SUPERVISOR [address] [place], [place] [address] [phone] [facility] 08/23/24 Margaux Johns, PT [address] [place] [address] Peoplesoft Developer Post Acute Care 08/24/24 Steam Clean Machine Operator Relationship Specialty Start Date End Date Laura Robertson MD [address] [place] [address] PCP - General Family Medicine 02/06/20 [facility], [facility] 06/08/21 Tanner Lala, [facility] [address] [place] [address] Specialty Social Work Faculty Member Orthopedics 04/21/24 09/28/24 Anayeli Ng APRN.BUILDING MAINTENANCE SUPERVISOR [address] [place] [address] [facility] 08/14/24 Nathaniel Vasquez MD [address] [place] [address] Home Care Provider Orthopedics 08/23/24 Salinas Samuel APRN.BUILDING MAINTENANCE SUPERVISOR [address] [place] [address] [facility] 08/23/24 Margaux Johns, PT [address] [place] [address] Peoplesoft Developer Post Acute Care 08/24/24 Steam Clean Machine Operator Relationship Specialty Start Date End Date Laura Robertson MD [address] [place] [address] PCP - General Family Medicine 02/06/20 Eh, [facility] 06/08/21 SissenTanner, [facility] [address] [place] [address] Specialty Social Work Faculty Member Orthopedics 04/21/24 09/28/24 Anayeli Ng APRN.BUILDING MAINTENANCE SUPERVISOR [address] [place] [address] [facility] 08/14/24 Nathaniel Vasquez MD [address] [place] [address] Home Care Provider Orthopedics 08/23/24 Salinas Samuel APRN.BUILDING MAINTENANCE SUPERVISOR [address] [place] [address] [facility] 08/23/24 Steam Clean Machine Operator Relationship Specialty Start Date End Date Laura Robertson MD [address] [place] [address] PCP - General Family Medicine 02/06/20 p, [facility] 06/08/21 Tanner Lala, [facility] [address] [place] [address] Specialty Social Work Faculty Member Orthopedics 04/21/24 09/28/24 Anayeli Ng, GARRY.BUILDING MAINTENANCE SUPERVISOR [address] [place] [address] [facility] 08/14/24 Nathaniel Vasquez MD [address] [place] [address] Home Care Provider Orthopedics 08/23/24 Salinas Samuel APRN.BUILDING MAINTENANCE SUPERVISOR [address] [place] [address] [facility] 08/23/24 Steam Clean Machine Operator Relationship Specialty Start Date End Date Laura Robertson MD [address] [place] [address] PCP - General Family Medicine 02/06/20 [facility] 06/08/21 Tanner Lala, [facility] [address] [place] [address] Specialty Social Work Faculty Member Orthopedics 04/21/24 09/28/24 Anayeli Ng APRN.BUILDING MAINTENANCE SUPERVISOR [address] [place] [address] [facility] 08/14/24 Nathaniel Vasquez MD [address] [place] [address] Home Care Provider Orthopedics 08/23/24 Salinas Samuel APRN.BUILDING MAINTENANCE SUPERVISOR [address] [place] [address] [facility] 08/23/24 Steam Clean Machine Operator Relationship Specialty Start Date End Date Laura Robertson MD [address] [place] [address] PCP - General Family Medicine 02/06/20 [facility], [facility] 06/08/21 Tanner Lala, [facility] [address] [place] [address] Specialty Social Work Faculty Member Orthopedics 04/21/24 09/28/24 Anayeli Ng APRN.BUILDING MAINTENANCE SUPERVISOR [address] [place] [address] [facility] 08/14/24 Nathaniel Vasquez MD [address] [place] [address] Home Care Provider Orthopedics 08/23/24 Salinas Samuel APRN.BUILDING MAINTENANCE SUPERVISOR [address] [place] [address] [facility] 08/23/24 Steam Clean Machine Operator Relationship Specialty Start Date End Date Laura Robertson MD [address] [place] [address] PCP - General Family Medicine 02/06/20 [facility], [facility] 06/08/21 Anayeli Ng APRN.BUILDING MAINTENANCE SUPERVISOR [address] [place] [address] [facility] 08/14/24 Nathaniel Vasquez MD [address] [place] [address] [phone] Home Care Provider Orthopedics 08/23/24 Salinas Samuel APRN.BUILDING MAINTENANCE SUPERVISOR [address] [place] [address] [facility] 08/23/24 Steam Clean Machine Operator Relationship Specialty Start Date End Date Laura Robertson MD [address] [place] [address] PCP - General Family Medicine 02/06/20 [facility], [facility] 06/08/21 Anayeli Ng CISCO CONSULTANT.BUILDING MAINTENANCE SUPERVISOR [address] [place] [address] [facility] 08/14/24 Nathaniel Vasquez MD [address] [place] [address] [phone] Home Care Provider Orthopedics 08/23/24 Salinas Samuel APRN.BUILDING MAINTENANCE SUPERVISOR [address] [place] [address] [facility] 08/23/24 Steam Clean Machine Operator Relationship Specialty Start Date End Date Laura Robertson MD [address] [place] [address] PCP - General Family Medicine 02/06/20 [facility], [facility] 06/08/21 Anayeli Ng, CISCO CONSULTANT.BUILDING MAINTENANCE SUPERVISOR [address] [place] [address] [facility] 08/14/24 Nathaniel Vasquez MD [address] [place] [address] [phone] Home Care Provider Orthopedics 08/23/24 Salinas Samuel APRN.BUILDING MAINTENANCE SUPERVISOR [address] [place] [address] [facility] 08/23/24 Steam Clean Machine Operator Relationship Specialty Start Date End Date Laura Robertson MD [address] [place] [address] PCP - General Family Medicine 02/06/20 [facility], [facility] 06/08/21 Anayeli Ng, CISCO CONSULTANT.BUILDING MAINTENANCE SUPERVISOR [address] [place] [address] [facility] 08/14/24 Nathaniel Vasquez MD [address] [place] [address] [phone] Home Care Provider Orthopedics 08/23/24 Salinas Samuel APRN.BUILDING MAINTENANCE SUPERVISOR [address] [place] [address] [facility] 08/23/24 Steam Clean Machine Operator Relationship Specialty Start Date End Date Laura Robertson MD [address] [place] [address] PCP - General Family Medicine 02/06/20 [facility], [facility] 06/08/21 Anayeli Ng, CISCO CONSULTANT.BUILDING MAINTENANCE SUPERVISOR [address] [place] [address] [facility] 08/14/24 Nathaniel Vasquez MD [address] [place] [address] 9[address] Home Care Provider Orthopedics 08/23/24 Salinas Samuel, GARRY.BUILDING MAINTENANCE SUPERVISOR [address] [place] [address] [facility] 08/23/24 Steam Clean Machine Operator Relationship Specialty Start Date End Date Laura Robertson MD [address] [place] [address] PCP - General Family Medicine 02/06/20 [facility], [facility] 06/08/21 Tanner Lala, [facility] [address] [place] [address] Specialty Social Work Faculty Member Orthopedics 04/21/24 12/15/24 Anayeli Ng, GARRY.BUILDING MAINTENANCE SUPERVISOR [address] [place] [address] [facility] 08/14/24 Nathaniel Vasquez MD [address] [place] [address] Home Care Provider Orthopedics 08/23/24 Salinas Samuel APRN.BUILDING MAINTENANCE SUPERVISOR [address] [place] [address] [facility] 08/23/24 Steam Clean Machine Operator Relationship Specialty Start Date End Date Laura Robertson MD [address] [place] [address] PCP - General Family Medicine 02/06/20 [facility], [facility] 06/08/21 Tanner Lala, [facility] [address] [place] [address] Specialty Social Work Faculty Member Orthopedics 04/21/24 12/15/24 Anayeli Ng APRN.BUILDING MAINTENANCE SUPERVISOR [address] [place] [address] [facility] 08/14/24 Nathaniel Vasquez MD [address] [place] [address] Home Care Provider Orthopedics 08/23/24 Salinas Samuel APRN.BUILDING MAINTENANCE SUPERVISOR [address] [place] [address] [facility] 08/23/24 Steam Clean Machine Operator Relationship Specialty Start Date End Date Laura Robertson MD [address] [place] [address] PCP - General Family Medicine 02/06/20 [facility], [facility] 06/08/21 SisTanner danielson, [facility] [address] [place] [address] Specialty Social Work Faculty Member Orthopedics 04/21/24 12/15/24 Anayeli Ng APRN.BUILDING MAINTENANCE SUPERVISOR [address] [place] [address] [facility] 08/14/24 Nathaniel Vasquez MD [address] [place] [address]37 Home Care Provider Orthopedics 08/23/24 Salinas Samuel APRN.BUILDING MAINTENANCE SUPERVISOR [address] [place] [address] [facility] 08/23/24 Steam Clean Machine Operator Relationship Specialty Start Date End Date Laura Robertson MD [address] [place] [address] PCP - General Family Medicine 02/06/20 p, [facility] 06/08/21 Tanner Lala, [facility] [address] [place] [address] Specialty Social Work Faculty Member Orthopedics 04/21/24 12/15/24 Anayeli Ng, GARRY.BUILDING MAINTENANCE SUPERVISOR [address] [place] [address] [facility] 08/14/24 Nathaniel Vasquez MD [address] [place] [address]26 Home Care Provider Orthopedics 08/23/24 Salinas Samuel APRN.BUILDING MAINTENANCE SUPERVISOR [address] [place] [address] [facility] 08/23/24 Steam Clean Machine Operator Relationship Specialty Start Date End Date Laura Robertson MD [address] [place] [address] PCP - General Family Medicine 02/06/20 [facility], [facility] 06/08/21 SissenTanner, [facility] [address] [place] [address] Specialty Social Work Faculty Member Orthopedics 04/21/24 12/15/24 Anayeli Ng APRN.BUILDING MAINTENANCE SUPERVISOR [address] [place] [address] [facility] 08/14/24 Nathaniel Vasquez MD [address] [place] [address] Home Care Provider Orthopedics 08/23/24 Salinas Samuel APRN.BUILDING MAINTENANCE SUPERVISOR [address] [place] [address] [facility] 08/23/24 Steam Clean Machine Operator Relationship Specialty Start Date End Date Laura Robertson MD [address] [place] [address] PCP - General Family Medicine 02/06/20 [facility] 06/08/21 Tanner Lala, [facility] [address] [place] [address] Specialty Social Work Faculty Member Orthopedics 04/21/24 12/15/24 Anayeli Ng APRN.BUILDING MAINTENANCE SUPERVISOR [address] [place] [address] [facility] 08/14/24 Nathaniel Vasquez MD [address] [place] [address] Home Care Provider Orthopedics 08/23/24 Salinas Samuel APRN.BUILDING MAINTENANCE SUPERVISOR [address] [place] [address] [facility] 08/23/24 Steam Clean Machine Operator Relationship Specialty Start Date End Date Laura Robertson MD [address] [place] [address] PCP - General Family Medicine 02/06/20 Eh, [facility] 06/08/21 Tanner Lala, [facility] [address] [place] [address] Specialty Social Work Faculty Member Orthopedics 04/21/24 12/15/24 Anayeli Ng CISCO CONSULTANT.BUILDING MAINTENANCE SUPERVISOR [address] [place] [address] [facility] [facility] 08/14/24 Nathaniel Vasquez MD [address] [place] [address] 25765 Home Care Provider Orthopedics 08/23/24 Salinas Samuel APRN.BUILDING MAINTENANCE SUPERVISOR [address] [place] [address] [facility] 08/23/24 Steam Clean Machine Operator Relationship Specialty Start Date End Date Laura Robertson MD [address] [place] [address] PCP - General Family Medicine 02/06/20 Eh, Accordant 06/08/21 SissenTanner, [facility] [address] [place] [address] Specialty Social Work Faculty Member Orthopedics 04/21/24 12/15/24 Anayeli Ng, CISCO CONSULTANT.BUILDING MAINTENANCE SUPERVISOR [address] [place] [address] [facility] 08/14/24 Nathaniel Vasquez MD [address] [place] [address] 84384 Home Care Provider Orthopedics 08/23/24 Salinas Samuel, CISCO CONSULTANT.BUILDING MAINTENANCE SUPERVISOR [address] [place] [address] [facility] 08/23/24 Steam Clean Machine Operator Relationship Specialty Start Date End Date Laura Robetrson MD [address] [place] [address] PCP - General Family Medicine 02/06/20 Eh, Accordant 06/08/21 SisTanner danielson, [facility] [address] [place] [address] Specialty Social Work Faculty Member Orthopedics 04/21/24 12/15/24 Anayeli Ng CISCO CONSULTANT.BUILDING MAINTENANCE SUPERVISOR [address] [place] [address] [facility] 08/14/24 Nathaniel Vasquez MD [address] [place] [address] 04614 Home Care Provider Orthopedics 08/23/24 Salinas Samuel, CISCO CONSULTANT.BUILDING MAINTENANCE SUPERVISOR [address] [place] [address] [facility] 08/23/24 Steam Clean Machine Operator Relationship Specialty Start Date End Date Laura Robertson MD [address] [place] [address] PCP - General Family Medicine 02/06/20 Ehp, Accordant 06/08/21 Sissen, Tanner, [facility] [address] [place] [address] Specialty Social Work Faculty Member Orthopedics 04/21/24 12/15/24 Anayeli Ng APRN.BUILDING MAINTENANCE SUPERVISOR [address] [place] [address] [facility] 08/14/24 Nathaniel Vasquez MD [address] [place] [address] 92657 Home Care Provider Orthopedics 08/23/24 Salinas Samuel APRN.BUILDING MAINTENANCE SUPERVISOR [address] [place] [address] [facility] 08/23/24 Steam Clean Machine Operator Relationship Specialty Start Date End Date Laura Robertson MD [address] [place] [address] PCP - General Family Medicine 02/06/20 Ehp, Accordant 06/08/21 [facility] [address] [place] [address] Specialty Social Work Faculty Member Orthopedics 04/21/24 12/15/24 Anayeli Ng APRN.BUILDING MAINTENANCE SUPERVISOR [address] [place] [address] [facility] 08/14/24 Nathaniel Vasquez MD [address] [place] [address] 56031 Home Care Provider Orthopedics 08/23/24 Salinas Samuel APRN.BUILDING MAINTENANCE SUPERVISOR [address] [place] [address] [facility] 08/23/24 Steam Clean Machine Operator Relationship Specialty Start Date End Date Laura Robertson MD [address] [place] [address] PCP - General Family Medicine 02/06/20 [facility], [facility] 06/08/21 Tanner Lala, [facility] [address] [place] [address] Specialty Social Work Faculty Member Orthopedics 04/21/24 12/15/24 Anayeli Ng APRN.BUILDING MAINTENANCE SUPERVISOR [address] [place] [address] [facility] 08/14/24 Nathaniel Vasquez MD [address] [place] [address] 20714 Home Care Provider Orthopedics 08/23/24 Salinas Samuel APRN.BUILDING MAINTENANCE SUPERVISOR [address] [place] [address] [facility] 08/23/24 Steam Clean Machine Operator Relationship Specialty Start Date End Date Laura Robertson MD [address] [place] [address] PCP - General Family Medicine 02/06/20 [facility], [facility] 06/08/21 Tanner Lala, [facility] [address] [place] [address] Specialty Social Work Faculty Member Orthopedics 04/21/24 12/15/24 Anayeli Ng APRN.BUILDING MAINTENANCE SUPERVISOR [address] [place] [address] [facility] 08/14/24 Nathaniel Vasquez MD [address] [place] [address] 93990 Home Care Provider Orthopedics 11/11/24 Salinas Samuel APRN.BUILDING MAINTENANCE SUPERVISOR [address] [place] [address] [facility] 08/23/24 Nathaniel Vasquez MD [address] [place] [address] Referring Orthopedics 11/11/24 Steam Clean Machine Operator Relationship Specialty Start Date End Date Laura Robertson MD [address] [place] [address] PCP - General Family Medicine 02/06/20 Shilpi chavez 06/08/21 Tanner Lala [facility] [address] [place] [address] Specialty Social Work Faculty Member Orthopedics 04/21/24 12/15/24 Anayeli Ng, CISCO CONSULTANT.BUILDING MAINTENANCE SUPERVISOR [address] [place] [address] [facility] 08/14/24 Nathaniel Vasquez MD [address] [place] [address] Home Care Provider Orthopedics 11/11/24 Salinas Samuel, CISCO CONSULTANT.BUILDING MAINTENANCE SUPERVISOR [address] [place] [address] [facility] 08/23/24 Nathaniel Vasquez MD [address] [place], [place] [address] Referring Orthopedics 11/11/24 Steam Clean Machine Operator Relationship Specialty Start Date End Date Laura Robertson MD [address] [place] [address] PCP - General Family Medicine 02/06/20 Ehp, Accordant 06/08/21 Tanner Lala, [facility] [address] [place] [address] Specialty Social Work Faculty Member Orthopedics 04/21/24 12/15/24 Anayeli Ng APRN.BUILDING MAINTENANCE SUPERVISOR [address] [place] [address] [facility] 08/14/24 Nathaniel Vasquez MD [address] [place] [address] Home Care Provider Orthopedics 11/11/24 Salinas Samuel APRN.BUILDING MAINTENANCE SUPERVISOR [address] [place], [place] 856621 [facility] 08/23/24 Nathaniel Vasquez MD [address] [place] [address] Referring Orthopedics 11/11/24 Margaux Johns, PT [address] [place] [address] Peoplesoft Developer Post Acute Care 11/12/24 Steam Clean Machine Operator Relationship Specialty Start Date End Date Laura Robertson MD [address] [place] [address] PCP - General Family Medicine 02/06/20 Eh, Accordant 06/08/21 aTnner Lala, [facility] [address] [place] [address] Specialty Social Work Faculty Member Orthopedics 04/21/24 12/15/24 Anayeli Ng APRN.BUILDING MAINTENANCE SUPERVISOR [address] [place] [address] [facility] 08/14/24 Nathaniel Vasquez MD [address] [place] [address] [phone] Home Care Provider Orthopedics 11/11/24 Salinas Samuel APRN.BUILDING MAINTENANCE SUPERVISOR [address] [place] [address] [facility] 08/23/24 Nathaniel Vasquez MD [address] [place] [address] [phone] Referring Orthopedics 11/11/24 Margaux Johns, PT [address] [place] [address] Peoplesoft Developer Post Acute Care 11/12/24 ProviderSalty MD [facility] 11/13/24 11/26/24 Steam Clean Machine Operator Relationship Specialty Start Date End Date Laura Robertson MD [address] [place], [place] 354011 PCP - General Family Medicine 02/06/20 Shilpi Richey 06/08/21 Tanner Lala, [facility] [address] [place] [address] Specialty Social Work Faculty Member Orthopedics 04/21/24 12/15/24 Anayeli Ng APRN.BUILDING MAINTENANCE SUPERVISOR [address] [place] [address] [facility] 08/14/24 Nathaniel Vasquez MD [address] [place] [address] 54595 Home Care Provider Orthopedics 11/11/24 Salinas Samuel APRN.BUILDING MAINTENANCE SUPERVISOR [address] [place] [address] [facility] 08/23/24 Nathaniel Vasquez MD [address] [place] [address] 10557 Referring Orthopedics 11/11/24 Margaux Johns, PT [address] [place] [address] Peoplesoft Developer Post Acute Care 11/12/24 Provider, MD Salty [facility] 11/13/24 11/26/24 Steam Clean Machine Operator Relationship Specialty Start Date End Date Laura Robertson MD [address] [place] [address] PCP - General Family Medicine 02/06/20 Shilpi Richey 06/08/21 Tanner Lala, [facility] [address] [place] [address] Specialty Social Work Faculty Member Orthopedics 04/21/24 12/15/24 Anayeli Ng APRN.BUILDING MAINTENANCE SUPERVISOR [address] [place] [address] [facility] 08/14/24 Nathaniel Vasquez MD [address] [place] [address] 87360 Home Care Provider Orthopedics 11/11/24 Salinas Samuel APRN.BUILDING MAINTENANCE SUPERVISOR [address] [place], [place] 737181 [facility] 08/23/24 Nathaniel Vasquez MD [address] [place] [address] 19952 Referring Orthopedics 11/11/24 Margaux Johns, PT [address] [place] [address] Peoplesoft Developer Post Acute Care 11/12/24 ProviderSalty MD [facility] 11/13/24 11/26/24 Steam Clean Machine Operator Relationship Specialty Start Date End Date Laura Robertson MD [address] [place] [address] PCP - General Family Medicine 02/06/20 Ehp, Accordant 06/08/21 Tanner Lala, [facility] [address] [place] [address] Specialty Social Work Faculty Member Orthopedics 04/21/24 12/15/24 Anayeli Ng APRN.BUILDING MAINTENANCE SUPERVISOR [address] [place] [address] [facility] 08/14/24 Nathaniel Vasquez MD [address] [place] [address] Home Care Provider Orthopedics 11/11/24 Salinas Samuel APRN.BUILDING MAINTENANCE SUPERVISOR [address] [place] [address] [facility] 08/23/24 Nathaniel Vasquez MD [address] [place] [address] Referring Orthopedics 11/11/24 Margaux Johns, PT [address] [place] [address] Peoplesoft Developer Post Acute Care 11/12/24 Salty Alvarez MD [facility] 11/13/24 11/26/24 Steam Clean Machine Operator Relationship Specialty Start Date End Date Laura Robertson MD [address] [place] [address] PCP - General Family Medicine 02/06/20 [facility], [facility] 06/08/21 Tanner Lala, [facility] [address] [place] [address] Specialty Social Work Faculty Member Orthopedics 04/21/24 12/15/24 Anayeli Ng APRN.BUILDING MAINTENANCE SUPERVISOR [address] [place] [address] [facility] 08/14/24 Nathaniel Vasquez MD [address] [place] [address] [phone] Home Care Provider Orthopedics 11/11/24 Salinas Samuel APRN.BUILDING MAINTENANCE SUPERVISOR [address] [place], [place] 236481 [facility] 08/23/24 Nathaniel Vasquez MD [address] [place] [address] 34830 Referring Orthopedics 11/11/24 Margaux Johns, PT [address] [place] [address] Peoplesoft Developer Post Acute Care 11/12/24 Provider, MD Salty [facility] 11/13/24 11/26/24 Steam Clean Machine Operator Relationship Specialty Start Date End Date Laura Robertson MD [address] [place] [address] PCP - General Family Medicine 02/06/20 [facility], [facility] 06/08/21 Tanner Lala, [facility] [address] [place] [address] Specialty Social Work Faculty Member Orthopedics 04/21/24 12/15/24 Anayeli Ng APRN.BUILDING MAINTENANCE SUPERVISOR [address] [place] [address] [facility] 08/14/24 Nathaniel Vasquez MD [address] [place] [address] 78197 Home Care Provider Orthopedics 11/11/24 Salinas Samuel APRN.BUILDING MAINTENANCE SUPERVISOR [address] [place], [place] 538061 [facility] 08/23/24 Nathaniel Vasquez MD [address] [place] [address] 99116 Referring Orthopedics 11/11/24 Margaux Johns, PT [address] [place] [address] Peoplesoft Developer Post Acute Care 11/12/24 Provider, MD Salty [facility] 11/13/24 11/26/24 Steam Clean Machine Operator Relationship Specialty Start Date End Date Laura Robertson MD [address] [place], [place] 610451 PCP - General Family Medicine 02/06/20 Shilpi Richey 06/08/21 Tanner Lala, [facility] [address] [place] [address] Specialty Social Work Faculty Member Orthopedics 04/21/24 12/15/24 Anayeli Ng APRN.BUILDING MAINTENANCE SUPERVISOR [address] [place], [place] 993251 [facility] 08/14/24 Nathaniel Vasquez MD [address] [place] [address] 93177 Home Care Provider Orthopedics 11/11/24 Salinas Samuel APRN.BUILDING MAINTENANCE SUPERVISOR [address] [place], [place] 538731 [facility] 08/23/24 Nathaniel Vasquez MD [address] [place] [address] 62558 Referring Orthopedics 11/11/24 Margaux Johns, PT [address] [place] [address] Peoplesoft Developer Post Acute Care 11/12/24 ProviderSatly MD [facility] 11/13/24 11/26/24 Steam Clean Machine Operator Relationship Specialty Start Date End Date Laura Robertson MD [address] [place] [address] PCP - General Family Medicine 02/06/20 Ehp, Accordant 06/08/21 Tanner Lala, [facility] [address] [place] [address] Specialty Social Work Faculty Member Orthopedics 04/21/24 12/15/24 Anayeli Ng APRN.BUILDING MAINTENANCE SUPERVISOR [address] [place] [address] [facility] 08/14/24 Nathaniel Vasquez MD [address] [place] [address] 01459 Home Care Provider Orthopedics 11/11/24 Salinas Samuel APRN.BUILDING MAINTENANCE SUPERVISOR [address] [place] [address] [facility] 08/23/24 Nathaniel Vasquez MD [address] [place] [address] Referring Orthopedics 11/11/24 Margaux Johns, PT [address] [place] [address] Peoplesoft Developer Post Acute Care 11/12/24 Salty Alvarez MD [facility] 11/13/24 11/26/24 Steam Clean Machine Operator Relationship Specialty Start Date End Date Laura Robertson MD [address] [place], [place] 029291 PCP - General Family Medicine 02/06/20 Shilpi Richey 06/08/21 Tanner Lala [facility] [address] [place] [address] Specialty Social Work Faculty Member Orthopedics 04/21/24 12/15/24 Anayeli Ng, GARRY.BUILDING MAINTENANCE SUPERVISOR [address] [place] [address] [facility] 08/14/24 Nathaniel Vasquez MD [address] [place] [address] 16548 Home Care Provider Orthopedics 11/11/24 Salinas Samuel APRN.BUILDING MAINTENANCE SUPERVISOR [address] [place], [place] 130051 [facility] 08/23/24 Nathaniel Vasquez MD [address] [place] [address] Referring Orthopedics 11/11/24 Margaux Johns, PT [address] [place] [address] Peoplesoft Developer Post Acute Care 11/12/24 Salty Alvarez MD [facility] 11/13/24 11/26/24 Steam Clean Machine Operator Relationship Specialty Start Date End Date Laura Robertson MD [address] [place] [address] PCP - General Family Medicine 02/06/20 [facility], [facility] 06/08/21 Tanner Lala, [facility] [address] [place] [address] Specialty Social Work Faculty Member Orthopedics 04/21/24 12/15/24 Anayeli Ng, CISCO CONSULTANT.BUILDING MAINTENANCE SUPERVISOR [address] [place] [address] [facility] 08/14/24 Nathaniel Vasquez MD [address] [place] [address] 31586 Home Care Provider Orthopedics 11/11/24 Salinas Samuel, CISCO CONSULTANT.BUILDING MAINTENANCE SUPERVISOR [address] [place] [address] [facility] 08/23/24 Nathaniel Vasquez MD [address] [place] [address] 61025 Referring Orthopedics 11/11/24 Margaux Johns, PT [address] [place] [address] Peoplesoft Developer Post Acute Care 11/12/24 Provider, MD Salty [facility] 11/13/24 11/26/24 Steam Clean Machine Operator Relationship Specialty Start Date End Date Laura Robertson MD [address] [place] [address] PCP - General Family Medicine 02/06/20 Eh, Accordant 06/08/21 Tanner Lala, [facility] [address] [place] [address] Specialty Social Work Faculty Member Orthopedics 04/21/24 12/15/24 Anayeli Ng APRN.BUILDING MAINTENANCE SUPERVISOR [address] [place] [address] [facility] 08/14/24 Nathaniel Vasquez MD [address] [place] [address] 14149 Home Care Provider Orthopedics 11/11/24 Salinas Samuel APRN.BUILDING MAINTENANCE SUPERVISOR [address] [place] [address] [facility] 08/23/24 Nathaniel Vasquez MD [address] [place] [address] 89760 Referring Orthopedics 11/11/24 Margaux Johns, PT [address] [place] [address] Peoplesoft Developer Post Acute Care 11/12/24 Steam Clean Machine Operator Relationship Specialty Start Date End Date Laura Robertson MD [address] [place], [place] 689471 PCP - General Family Medicine 02/06/20 Ehp, [facility] 06/08/21 Tanner Lala, [facility] [address] [place] [address] Specialty Social Work Faculty Member Orthopedics 04/21/24 12/15/24 Anayeli Ng, GARRY.BUILDING MAINTENANCE SUPERVISOR [address] [place] [address] [facility] 08/14/24 Nathaniel Vasquez MD [address] [place] [address] Home Care Provider Orthopedics 11/11/24 Salinas Samuel APRN.BUILDING MAINTENANCE SUPERVISOR [address] [place], [place] 058431 [facility] 08/23/24 Nathaniel Vasquez MD [address] [place] [address] 28160 Referring Orthopedics 11/11/24 Margaux Johns, PT [address] [place] [address] Peoplesoft Developer Post Acute Care 11/12/24 Steam Clean Machine Operator Relationship Specialty Start Date End Date Laura Robertson MD [address] [place] [address] PCP - General Family Medicine 02/06/20 Ehp, Accordant 06/08/21 Tanner Lala [facility] [address] [place] [address] Specialty Social Work Faculty Member Orthopedics 04/21/24 12/15/24 Anayeli Ng APRN.BUILDING MAINTENANCE SUPERVISOR [address] [place] [address] [facility] 08/14/24 Nathaniel Vasquez MD [address] [place] [address] 07069 Home Care Provider Orthopedics 11/11/24 Salinas Samuel APRN.BUILDING MAINTENANCE SUPERVISOR [address] [place], [place] 531761 [facility] 08/23/24 Nathaniel Vasquez MD [address] [place] [address] Referring Orthopedics 11/11/24 Margaux Johns, PT [address] [place] [address] Peoplesoft Developer Post Acute Care 11/12/24 Steam Clean Machine Operator Relationship Specialty Start Date End Date Laura Robertson MD [address] [place], [place] 425411 PCP - General Family Medicine 02/06/20 Ehp, Accordant 06/08/21 Tanner Lala, [facility] [address] [place] [address] Specialty Social Work Faculty Member Orthopedics 04/21/24 12/15/24 Anayeli Ng APRN.BUILDING MAINTENANCE SUPERVISOR [address] [place] [address] [facility] 08/14/24 Nathaniel Vasquez MD [address] [place] [address] Home Care Provider Orthopedics 11/11/24 Salinas Samuel APRN.BUILDING MAINTENANCE SUPERVISOR [address] [place], [place] 272431 [facility] 08/23/24 Nathaniel Vasquez MD [address] [place] [address] Referring Orthopedics 11/11/24 Margaux Johns, PT [address] [place] [address] Peoplesoft Developer Post Acute Care 11/12/24 ProviderSalty MD [facility] 11/13/24 11/26/24 Steam Clean Machine Operator Relationship Specialty Start Date End Date Laura Robertson MD [address] [place], [place] 125341 PCP - General Family Medicine 02/06/20 [facility], [facility] 06/08/21 Tanner Lala, [facility] [address] [place] [address] Specialty Social Work Faculty Member Orthopedics 04/21/24 12/15/24 Anayeli Ng APRN.BUILDING MAINTENANCE SUPERVISOR [address] [place] [address] [facility] 08/14/24 Nathaniel Vasquez MD [address] [place] [address] 18309 Home Care Provider Orthopedics 11/11/24 Salinas Samuel APRN.BUILDING MAINTENANCE SUPERVISOR [address] [place] [address] [facility] 08/23/24 Nathaniel Vasquez MD [address] [place] [address] 14657 Referring Orthopedics 11/11/24 Margaux Johns, PT [address] [place] [address] Peoplesoft Developer Post Acute Care 11/12/24 Steam Clean Machine Operator Relationship Specialty Start Date End Date Laura Robertson MD [address] [place], [place] 624231 PCP - General Family Medicine 02/06/20 [facility], [facility] 06/08/21 Tanner Lala, [facility] [address] [place] [address] Specialty Social Work Faculty Member Orthopedics 04/21/24 12/15/24 Anayeli NgGARRY.BUILDING MAINTENANCE SUPERVISOR [address] [place] [address] [facility] 08/14/24 Nathaniel Vasquez MD [address] [place] [address] 28548 Home Care Provider Orthopedics 11/11/24 Salinas Samuel APRN.BUILDING MAINTENANCE SUPERVISOR [address] [place] [address] [facility] 08/23/24 Nathaniel Vasquez MD [address] [place] [address] 57830 Referring Orthopedics 11/11/24 Margaux Johns, PT [address] [place] [address] Peoplesoft Developer Post Acute Care 11/12/24 Steam Clean Machine Operator Relationship Specialty Start Date End Date Laura Robertson MD [address] [place] [address] PCP - General Family Medicine 02/06/20 Ehp, Accordant 06/08/21 Tanner Lala [facility] [address] [place] [address] Specialty Social Work Faculty Member Orthopedics 04/21/24 12/15/24 Anayeli Ng APRN.BUILDING MAINTENANCE SUPERVISOR [address] [place] [address] [facility] 08/14/24 Nathaniel Vasquez MD [address] [place] [address] [phone] Home Care Provider Orthopedics 11/11/24 Salinas Samuel APRN.BUILDING MAINTENANCE SUPERVISOR [address] [place], [place] 792701 [facility] 08/23/24 Nathaniel Vasquez MD [address] [place], [place] [id number] Referring Orthopedics 11/11/24 Steam Clean Machine Operator Relationship Specialty Start Date End Date Laura Robertson MD [address] [place], [place] 925221 PCP - General Family Medicine 02/06/20 [facility] 06/08/21 Tanner Lala, [facility] [address] [place] [address] Specialty Social Work Faculty Member Orthopedics 04/21/24 12/15/24 Anayeli Ng, CISCO CONSULTANT.BUILDING MAINTENANCE SUPERVISOR [address] [place] [address] [facility] 08/14/24 Nathaniel Vasquez MD [address] [place] [address] [phone] Home Care Provider Orthopedics 11/11/24 Salinas Samuel, CISCO CONSULTANT.BUILDING MAINTENANCE SUPERVISOR [address] [place] [address] [facility] 08/23/24 Nathaniel Vasquez MD [address] [place] [address] [phone] Referring Orthopedics 11/11/24 Margaux Johns, PT [address] [place] [address] Peoplesoft Developer Post Acute Care 11/12/24 12/04/24 ProviderSalty MD [facility] 11/13/24 11/26/24 Steam Clean Machine Operator Relationship Specialty Start Date End Date Laura Robertson MD [address] [place] [address] PCP - General Family Medicine 02/06/20 E[facility], [facility] 06/08/21 Tanner L[facility], [facility] [address] [place] [address] Specialty Social Work Faculty Member Orthopedics 04/21/24 12/15/24 Anayeli Ng APRN.BUILDING MAINTENANCE SUPERVISOR [address] [place], [place] 256621 [facility] 08/14/24 Nathaniel Vasquez MD [address] [place] [address] Home Care Provider Orthopedics 11/11/24 Salinas Samuel APRN.BUILDING MAINTENANCE SUPERVISOR [address] [place], [place] 854121 [facility] 08/23/24 Nathaniel Vasquez MD [address] [place] [address] 66466 Referring Orthopedics 11/11/24 Team Status: Active Member Role Status Dates Dr. Laura Robertson MD Primary Care Provider Active Team Status: Inactive Member Role Status Dates Dr. Laura Robertson MD Primary Care Provider Active Start: September 23, 2024 End: September 24, 2024 Dr. Daniel Taylor DO Attending Provider Active Start: September 23, 2024 End: September 24, 2024 Dr. Daniel Taylor DO Emergency Provider Active Start: September 23, 2024 End: September 24, 2024 Team Status: Inactive Member Role Status Dates Dr. Laura Robertson MD Primary Care Provider Active Start: December 08, 2024 End: December 08, 2024 Dr. Leander Mcarthur DO Referring Provider Active Start: December 08, 2024 End: December 08, 2024 Dr. Leander Mcarthur DO Emergency Provider Active Start: December 08, 2024 End: December 08, 2024 Steam Clean Machine Operator Relationship Specialty Start Date End Date Laura Robertson MD [address] [place] [address] PCP - General Family Medicine 02/06/20 Eh, [facility] 06/08/21 Tanner Lala, [facility] [address] [place] [address] Specialty Social Work Faculty Member Orthopedics 04/21/24 12/15/24 Anayeli Ng APRN.BUILDING MAINTENANCE SUPERVISOR [address] [place] [address] [facility] 08/14/24 Nathaniel Vasquez MD [address] [place] [address] 78028 Home Care Provider Orthopedics 11/11/24 Salinas Samuel APRN.BUILDING MAINTENANCE SUPERVISOR [address] [place] [address] [facility] 08/23/24 Nathaniel Vasquez MD [address] [place] [address] 44850 Referring Orthopedics 11/11/24 Steam Clean Machine Operator Relationship Specialty Start Date End Date Laura Robertson MD [address] [place] [address] PCP - General Family Medicine 02/06/20 Eh, [facility] 06/08/21 SissenLisandroin, [facility] [address] [place] [address] Specialty Social Work Faculty Member Orthopedics 04/21/24 12/15/24 Anayeli Ng CISCO CONSULTANT.BUILDING MAINTENANCE SUPERVISOR [address] [place] [address] [facility] 08/14/24 Nathaniel Vasquez MD [address] [place] [address] 73986 Home Care Provider Orthopedics 11/11/24 Salinas Samuel APRN.BUILDING MAINTENANCE SUPERVISOR [address] [place], [place] [id number] [facility] 08/23/24 Nathaniel Vasquez MD [address] [place] [id number] Referring Orthopedics 11/11/24 Margaux Johns, PT [address] [place] [address] Peoplesoft Developer Post Acute Care 11/12/24 12/04/24 ProviderSalty MD [facility] 11/13/24 11/26/24 Steam Clean Machine Operator Relationship Specialty Start Date End Date Laura Robertson MD [address] [place], [place] [id number] PCP - General Family Medicine 02/06/20 [facility], [facility] 06/08/21 Tanner Lala [facility] [address] [place] [address] Specialty Social Work Faculty Member Orthopedics 04/21/24 12/15/24 Anayeli Ng, CISCO CONSULTANT.BUILDING MAINTENANCE SUPERVISOR [address] [place] [address] [facility] 08/14/24 Nathaniel Vasquez MD [address] [place] [address] Home Care Provider Orthopedics 11/11/24 Salinas Samuel APRN.BUILDING MAINTENANCE SUPERVISOR [address] [place] [address] [facility] 08/23/24 Nathaniel Vasquez MD [address] [place] [address] Referring Orthopedics 11/11/24 Margaux Johns, PT [address] [place] [address] Peoplesoft Developer Post Acute Care 11/12/24 12/04/24 ProviderSalty MD [facility] 11/13/24 11/26/24 Steam Clean Machine Operator Relationship Specialty Start Date End Date Laura Robertson MD [address] [place] [address] PCP - General Family Medicine 02/06/20 Shilpi Richey 06/08/21 Anayeli Ng APRN.BUILDING MAINTENANCE SUPERVISOR [facility] 08/14/24 Nathaniel Vasquez MD [address] [place] [address] Home Care Provider Orthopedics 11/11/24 Salinas Samuel CISCO CONSULTANT.BUILDING MAINTENANCE SUPERVISOR [address] [place], [place] [address] [facility] 08/23/24 Nathaniel Vasquez MD [address] [place] [address] Referring Orthopedics 11/11/24 Steam Clean Machine Operator Relationship Specialty Start Date End Date Laura Robertson MD [address] [place] [address] PCP - General Family Medicine 02/06/20 [facility], [facility] 06/08/21 Anayeli Ng APRN.BUILDING MAINTENANCE SUPERVISOR [facility] 08/14/24 Nathaniel Vasquez MD [address] [place], [place] [id number] Home Care Provider Orthopedics 11/11/24 Salinas Samuel APRN.BUILDING MAINTENANCE SUPERVISOR [address] [place] [address] [facility] 08/23/24 Nathaniel Vasquez MD [address] [place], [place] [id number] Referring Orthopedics 11/11/24 Steam Clean Machine Operator Relationship Specialty Start Date End Date Laura Robertson MD [address] [place] [address] PCP - General Family Medicine 02/06/20 [facility], [facility] 06/08/21 Anayeli Ng CISCO CONSULTANT.BUILDING MAINTENANCE SUPERVISOR [facility] 08/14/24 Nathaniel Vasquez MD [address] [place], [place] [id number] Home Care Provider Orthopedics 11/11/24 Salinas Samuel APRN.BUILDING MAINTENANCE SUPERVISOR [address] [place] [address] [facility] 08/23/24 Nathaniel Vasquez MD [address] [place], [place] [id number] Referring Orthopedics 11/11/24 Steam Clean Machine Operator Relationship Specialty Start Date End Date Laura Robertson MD [address] [place], [place] [address] PCP - General Family Medicine 02/06/20 [facility], [facility] 06/08/21 Anayeli Ng, CISCO CONSULTANT.BUILDING MAINTENANCE SUPERVISOR [facility] 08/14/24 Nathaniel Vasquez MD [address] [place], [place] [id number] Home Care Provider Orthopedics 11/11/24 Salinas Samuel, CISCO CONSULTANT.BUILDING MAINTENANCE SUPERVISOR [address] [place] [address] [facility] 08/23/24 Nathaniel Vasquez MD [facility] [place] [address] Referring Orthopedics 11/11/24 Steam Clean Machine Operator Relationship Specialty Start Date End Date Laura Robertson MD [address] [place] [address] PCP - General Family Medicine 02/06/20 [facility], [facility] 06/08/21 Anayeli Ng, CISCO CONSULTANT.BUILDING MAINTENANCE SUPERVISOR [facility] 08/14/24 Nathaniel Vasquez MD [address] [place] [address] Home Care Provider Orthopedics 11/11/24 Salinas Samuel APRN.BUILDING MAINTENANCE SUPERVISOR [address] [place] [address] [facility] 08/23/24 Nathaniel Vasquez MD [address] [place] [address] Referring Orthopedics 11/11/24 Steam Clean Machine Operator Relationship Specialty Start Date End Date Laura Robertson MD [address] [place] [address] PCP - General Family Medicine 02/06/20 [facility], [facility] 06/08/21 Anayeli Ng APRN.BUILDING MAINTENANCE SUPERVISOR [facility] 08/14/24 Nathaniel Vasquez MD [facility] [place] [address] Home Care Provider Orthopedics 11/11/24 Salinas Samuel APRN.BUILDING MAINTENANCE SUPERVISOR [address] [place] [address] [facility] 08/23/24 Nathaniel Vasquez MD [address] [place] [address] Referring Orthopedics 11/11/24 Steam Clean Machine Operator Relationship Specialty Start Date End Date Laura Robertson MD [address] [place] [address] PCP - General Family Medicine 02/06/20 [facility], [facility] 06/08/21 Anayeli Ng APRN.BUILDING MAINTENANCE SUPERVISOR [facility] 08/14/24 Nathaniel Vasquez MD [address] [place] [address] Home Care Provider Orthopedics 11/11/24 Salinas Samuel APRN.BUILDING MAINTENANCE SUPERVISOR [address] [place] [address] [facility] 08/23/24 Nathaniel Vasquez MD [address] [place] [address] Referring Orthopedics 11/11/24 Steam Clean Machine Operator Relationship Specialty Start Date End Date Laura Robertson MD [address] [place] [address] PCP - General Family Medicine 02/06/20 p, [employer] 06/08/21 Anayeli Ng APRN.BUILDING MAINTENANCE SUPERVISOR [facility] 08/14/24 Nathaniel Vasquez MD [address] [place] [address] Home Care Provider Orthopedics 11/11/24 Salinas Samuel APRN.BUILDING MAINTENANCE SUPERVISOR [address] [place] [address] [facility] 08/23/24 Nathaniel Vasquez MD [address] [place] [address] Referring Orthopedics 11/11/24 Steam Clean Machine Operator Relationship Specialty Start Date End Date Laura Robertson MD [address] [place] [address] PCP - General Family Medicine 02/06/20 [facility] 06/08/21 Anayeli Ng APRN.BUILDING MAINTENANCE SUPERVISOR [facility] 08/14/24 Nathaniel Vasquez MD [address] [place] [address] Home Care Provider Orthopedics 11/11/24 Salinas Samuel APRN.BUILDING MAINTENANCE SUPERVISOR [address] [place] [address] [facility] 08/23/24 Nathaniel Vasquez MD [facility] [place] [address] Referring Orthopedics 11/11/24 Steam Clean Machine Operator Relationship Specialty Start Date End Date Laura Robertson MD [address] [place] [address] PCP - General Family Medicine 02/06/20 [facility], [employer] 06/08/21 Nathaniel Vasquez MD [address] [place] [address] Home Care Provider Orthopedics 11/11/24 Salinas Samuel APRN.BUILDING MAINTENANCE SUPERVISOR [address] [place] [address] [facility] 08/23/24 Nathaniel Vasquez MD [address] [place] [address] Referring Orthopedics 11/11/24 Steam Clean Machine Operator Relationship Specialty Start Date End Date Laura Robertson MD [address] [place], [place] [address] PCP - General Family Medicine 02/06/20 kathy, Shilpi 06/08/21 Nathaniel Vasquez MD [address] [place] [address] Home Care Provider Orthopedics 11/11/24 Salinas Samuel APRN.[facility] [address] [place], [place] [address] [facility] 08/23/24 Nathaniel Vasquez MD [address] [place] [id number] Referring Orthopedics 11/11/24 Goals (unrecognized section and content) Goals may be documented in a n alternate sectionGoals may be documented in an alternate section FOR RECORDS PERTAINING TO PATIENTS WHO ARE OR HAVE BEEN ENROLLED IN A CHEMICAL DEPENDENCY/SUBSTANCEABUSE PROGRAM, SOME INFORMATION MAY BE OMITTED. This clinical summary was aggregated from multiple sources. Caution should be exercised in using it in the provision of clinical care. This summary normalizes information from multiple sources, and as a consequence, information in this document may materially change the coding, format and clinical context of patient data. In addition, data may be omitted in some cases. CLINICAL DECISIONS SHOULD BE BASED ON THE PRIMARY CLINICAL RECORDS. [employer] provides no warranty or guarantee of the accuracy or completeness of information in this document.
[2025-02-25] MEDS: 0.9% Normal Saline (1000mL) 1,000 ML 1000 ML IV (16:14)
[2025-02-25] MEDS: Morphine 4 MG/ML Syringe IV (16:14)
[2025-02-25 16:15] VITALS: BP 131/74; PULSE 87; RESP 18; TEMP 36.7; O2SAT 100
--- NOTE | 2025-02-25 16:22 | EDS_ITS ---
HPI HPI - GI History of Present Illness Chief Complaint: Abd Pain Informant: patient and friend Narrative Narrative: 4-day history loose watery nonbloody or black stools. Low abdominal cramping. Cholecystectomy this past October by Dr. Tucker. No recent antibiotics. No fevers. No recent travel. No camping. No sick contacts. Denies any increasing fatty foods or greasy foods prior to symptoms occurring. She took Zofran at home tolerating oral fluids. Last diarrhea was 6 hours ago. No urinary symptoms. [facility] Medical History Medication reaction Myalgia Hypothyroidism GERD (gastroesophageal reflux disease) Rheumatoid arthritis Home Medications ?Medication ?Instructions ?Recorded ?Last Taken ?Type Chlordiazepoxide/Clidinium Br 1 capsule PO BID 4 Unknown History [Chlordiazepoxide-Clidinium Cap] cyclobenzaprine 10 mg tablet 10 mg PO TID 10/05/13 Unk nown History dexlansoprazole 60 mg 60 mg PO DAILY 10/05/13 Unkn own History capsule,biphase delayed release (Dexilant) estradiol 0.1 mg/24 hr semiweekly 0.1 mg topical QWEEK 10/05/13 Unknown History transdermal patch hydrocodone-acetaminophen 5-325mg 1 - 2 tab PO Q4H PRN PRN Pain ##12 10/05/13 Unknown Rx 5mg-325mg hydroxychloroquine 200 mg tablet 200 mg PO BIDCM 10/05 Unknown History levothyroxine 150 mcg tablet 150 mcg PO DAILY 10/05/13 Unknown History etanercept 50 mg/mL (1 mL) mg subcut 08/08/21 Unknown History subcutaneous pen injector (Enbrel SureJaisonick) hydrocodone-acetaminophen 5-325mg 1 tab PO Q6H PRN silvia n 3 days #10 08/09/22 Unknown Rx 5mg-325mg tabs ondansetron 4 mg disintegrating 4 mg PO Q8H PRN nausea and 08/09/22 Unknown Rx tablet vomiting #10 tabs promethazine 25 mg tablet 25 mg PO TID PRN nausea and 08/09/22 Unknown Rx vomiting #10 tabs ondansetron 4 mg disintegrating 4 mg PO TID PRN nausea and 09/24/24 Unknown Rx tablet vomiting #21 tabs dicyclomine 20 mg tablet 20 mg PO TID #30 tabs Unknown Rx ondansetron 4 mg disintegrating 4 mg PO Q6H PRN nausea and 12/08/24 Unknown Rx tablet vomiting #30 tabs Allergy/AdvReac Type Severity Reaction Status Date / Time aminocaproic acid (From Allergy Rash Verified 02/25/25 14:54 Amicar) methotrexate AdvReac Other Verified 02/25/25 14:54 Surgical History Hx of cholecystectomy Social History Smoking Status: Never smoker ROS ROS ED Constitutional Constitutional ED: Denies chills, fever(s) or sweats ENT ENT ED: Denies sore throat Cardiovascular Cardiovascular: Denies chest pain, leg edema, palpitations or racing heartbeat Respiratory/Chest Respiratory/Chest: Denies cough, dyspnea or dyspnea on exertion Gastrointestinal Gastrointestinal: Reports abdominal pain, diarrhea and nausea; Denies vomiting Genitourinary Genitourinary ED: Denies dysuria, hematuria or urinary frequency Musculoskeletal Musculoskeletal: Denies back pain, extremity pain or neck pain Integumentary Denies rash or wounds Neurologic Neurologic: Denies headache(s), paresthesias or weakness EXAM Physical Exam Const Vital Signs: 02/25/25 14:52 02/25/25 16:15 02/25/25 18:37 Temperature 99 F 98.1 F 98.7 F Temperature Source Temporal Oral Pulse Rate 105 H 87 77 Respiratory Rate 22 H 18 16 Blood Pressure 127/65 H 131/74 H 116/76 Blood Pressure Mean 85 93 89 Pulse Ox 95 100 99 Oxygen Delivery Method Room Air Room Air Positive well nourished and well developed General Appearance ED: well developed and NAD HEENT HEENT Narrative: Mild dry mucosal membranes normocephalic and atraumatic Eyes General Eye ED: Yes normal appearance of both eyes Neck full ROM Chest Wall Chest: Negative for tenderness Resp normal respiratory effort and normal air movement Effort and Inspection: symmetric chest movement; Negative for respiratory distress Cardio regular rate, regular rhythm and no murmurs Peripheral Pulses: pulses 2+ throughout GI normal to inspection, nondistended, normoactive bowel sounds GI Narrative: Some mild tenderness lower abdomen right and lower quadrants. No guarding or rebound. Palpation: Negative for guarding or rebound tenderness present Extremity normal to inspection General Extremety ED: Negative for edema or tenderness General Extremity: Negative for edema Neuro oriented x3 and no sensory deficits noted Sensorium / Orientation: awake and alert Skin no rashes or lesions noted and no wounds MDM MDM MDM Narrative Medical decision making narrative: Interventions / MDM: Differential diagnosis: Nonspecific abdominal pain, diarrhea Diagnosis considered but do not suspect: Colitis however CT negative. Appendicitis however CT negative. My EKG interpretation: N/A Imaging independently reviewed and interpreted by myself: CT abdomen pelvis IV contrast: External documents reviewed: N/A Test considered but not ordered:N/A ED course: Slight dry mucosal membranes. Tachycardic on arrival. Some tenderne ss lower abdomen increasing loose stools were 4 days. Nursing protocol labs were obtained white count 7.9 hemoglobin 14.8. Creatinine 0.9 potassium 3.8. Lipase normal liver enzymes normal. She is ordered for a liter of fluids she took Zofran at home morphine for pain control. CT abdomen pelvis IV contrast for further evaluation. Stool studies ordered. 1724: CT scan normal appendix no intra-abdominal process. Incidental pulmonary nodule 5 mm right lower lobe. 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 1840: Patient unable to provide stool sample. She has been able to tolerate oral fluids. She has Zofran at home. Discussed continue this. Discussed using her Zofran as needed. Discussed the pulmonary nodule she does not smoke this will be monitored by her PCP. All questions were answered. Re-evaluation: stable Disposition discussed with patient/family/significant other: Patient Case discussed with consulting clinician: N/A This note was generated with [employer] dictation software. It may contain incorrect words, spelling, and punctuation that were not noted in checking the note before signing. Lab Data Attestation: I reviewed the patient's lab results. Labs: Laboratory Results - last 24 hr 02/25/25 15:07 WBC 7.9 RBC 5.01 Hgb 14.8 Hct 43.0 MCV 85.8 MCH 29.5 MCHC 34.4 RDW Std Deviation 41.1 RDW Coeff of Natalia 13.2 Plt Count 296 MPV 9.8 Immature Gran % (Auto) 0.400 Neut % (Auto) 65.4 Lymph % (Auto) 26.2 Grady % (Auto) 6.5 Eos % (Auto) 0.9 Baso % (Auto) 0.6 Absolute Neuts (auto) 5.2 Absolute Lymphs (auto) 2.06 Nucleated RBC % 0 Sodium 142 Potassium 3.8 Chloride 105 Carbon Dioxide 20.1 L Anion Gap 18 H BUN 18 Creatinine 0.90 Est GFR (MDRD) Non-Af 71 BUN/Creatinine Ratio 20.2 H Glucose 81 Calcium 10.1 Total Bilirubin 0.68 AST 26 ALT 18 Alkaline Phosphatase 75 Total Protein 8.0 Albumin 5.0 H Globulin 3.0 Albumin/Globulin Ratio 1.6 Lipase 33 Radiography Diagnostic Testing: Clinical Impression(s) from Imaging Studies Abdomen/Pelvis CT 02/25/25 16:03 IMPRESSION: 1. No acute abdominopelvic finding. 2. Tiny sub 5 mm right lower lobe pulmonary nodule, likely noncalcified granuloma or scarring. If patient has a history of smoking, consider follow-up chest CT in 12 months to evaluate for stability/resolution. 3. 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 Reading Location: [facility] Discharge Plan Triage Chief Complaint: Abd Pain ED Provider: Hieu Lambert Dx/Rx/DC Orders Clinical Impression: Abdominal pain, Diarrhea, Incidental pulmonary nodule, > 3mm and < 8mm Instructions: Abdominal Pain, ED Diarrhea, Unknown Cause Prescriptions: No Action cyclobenzaprine 10 MG tablet 10 mg PO TID levothyroxine 150 MCG tablet 150 mcg PO DAILY hydroxychloroquine 200 MG tablet 200 mg PO BIDCM dexlansoprazole [Dexilant] 60 MG capsule,biphase delayed releas 60 mg PO DAILY Chlordiazepoxide/Clidinium Br [Chlordiazepoxide-Clidinium Cap] 1 EACH capsule 1 capsule PO BID estradiol 0.1 MG patch 0.1 mg topical QWEEK Patient Comments: CHANGES PATCH 2 TIMES WEEKLY hydrocodone-acetaminophen 1 TABLET tablet 1 - 2 tab PO Q4H PRN PRN (Reason: Pain) Qty: 12 0RF Enbrel SureClick 50 mg/mL (1 mL) pen injector SUBCUT hydrocodone-acetaminophen 5-325 mg tablet 1 tab PO Q6H PRN (Reason: pain) 3 Days Qty: 10 0RF ondansetron 4 mg tablet,disintegrating 4 mg PO Q8H PRN (Reason: nausea and vomiting) Qty: 10 0RF promethazine 25 mg tablet 25 mg PO TID PRN (Reason: nausea and vomiting) Qty: 10 0RF ondansetron 4 mg tablet,disintegrating 4 mg PO TID PRN (Reason: nausea and vomiting) Qty: 21 0RF dicyclomine 20 mg tablet 20 mg PO TID Qty: 30 0RF ondansetron 4 mg tablet,disintegrating 4 mg PO Q6H PRN (Reason: nausea and vomiting) Qty: 30 0RF Primary Care Provider: Rambo Robertson Referrals: Rambo Robertson MD [Primary Care Provider] - 3-5 Days if not improving Activity Restrictions/Additional Instructions: Labs were normal. Your CT scan abdomen pelvis was negative. You are unable to provide a stool sample for further testing. Continue fluids for hydration. Use your Zofran as needed. Use Tylenol as needed. Incidental pulmonary nodule 5 mm right lower lobe. You do not smoke. Follow-up with your doctor who will continue to follow this. Print Language: Spanish Disposition Disposition: Home, Self Care Discharge Date/Time: 02/25/25 19:10
[2025-02-25 18:37] VITALS: BP 116/76; PULSE 77; RESP 16; TEMP 37.1; O2SAT 99
== END 2025-02-25 19:10 | disposition home or self-care (01) ==
PROVIDERS: Emergency Provider Emergency Medicine; PCP Family Medicine; Visit Provider Emergency Medicine
DX: R10.9 Unspecified abdominal pain (principal); R91.1 Solitary pulmonary nodule; R19.7 Diarrhea, unspecified; Z90.49 Acquired absence of other specified parts of digestive tract; E03.9 Hypothyroidism, unspecified; Z79.899 Other long term (current) drug therapy
CPT/HCPCS: 74177; 80053; 83690; 85025; 96361; 96374; 99283; Q9967; A4216

== ENCOUNTER 2025-02-27 12:49 | Emergency (ER) | payer OTHER, SELFPAY ==
[2025-02-27 12:50] VITALS: BP 136/57; PULSE 69; RESP 22; TEMP 35.8; O2SAT 97
[2025-02-27 12:51] VITALS: BMI 21.6
[2025-02-27 13:57] LABS: Absolute Lymphocyte Count 1.61 X10^3/uL (0.83-4.51); Basophil# 0.06 X10^3/uL; Basophil% 0.9 % (0-1); Eosinophil# 0.14 X10^3/uL; Eosinophils% 2.2 % (0-5); Hematocrit 40.5 % (37-47); Hemoglobin 13.8 g/dL (12.0-15.0); Lymphocyte # 1.61 X10^3/ul (0.83-4.51); Lymphocyte % 25.2 % (19-41); Mean Corp Hgb Conc 34.1 g/dL (32-36); Mean Corpuscular Hgb 29.1 pg (27.0-32.0); Mean Corpuscular Volume 85.3 fL (81-99); Mean Platelet Vol. 10.3 fl (6.2-12.0); Monocyte# 0.57 X10^3/uL; Monocyte% 8.9 % (0-10); NRBC Flagged by Analyzer 0 % (0-5); Neutrophil % 62.6 % (47-70); Platelet Count 250 K/mm3 (150-450); RBC Distribution Width SD 40.2 fl (35.1-43.9); Red Blood Count 4.75 M/mm3 (4.2-5.4); White Blood Count 6.4 K/mm3 (4.4-11.0)
--- NOTE | 2025-02-27 14:17 | ED.VIS.GI ---
HPI HPI - GI History of Present Illness Chief Complaint: Abd Pain Narrative Narrative: 64-year-old female presents with her because of 1 weeks worth of diarrhea. She denies any fever, no nausea or vomiting. She was seen in the emergency department 2 days ago where she had negative workup. She states she tried to call her primary care provider for follow-up and she was sent back to the ED because of continued diarrhea and abdominal pain. Past abdominal surgeries include remote cholecystectomy by Dr. Tucker at [facility]. She denies any exacerbating or alleviating factors. No recent antibiotics. She and her states that whenever she tries to eat anything, she will have an episode of diarrhea. They describe rapid transit as in the food that she eats is seen in her bowel movements as well. [facility] Medical History Medication reaction Myalgia Hypothyroidism GERD (gastroesophageal reflux disease) Rheumatoid arthritis Home Medications ?Medication ?Instructions ?Recorded ?Last Taken ?Type Chlordiazepoxide/Clidinium Br 1 capsule PO BID 10/05/13 Unknown History [Chlordiazepoxide-Clidinium Cap] cyclobenzaprine 10 mg tablet 10 mg PO TID 10/05/13 Unknown History dexlansoprazole 60 mg 60 mg PO DAILY 10/05/13 Unknown History capsule,biphase delayed release (Dexilant) estradiol 0.1 mg/24 hr semiweekly 0.1 mg topical QWEEK 10/05/13 Unknown History transdermal patch hydrocodone-acetaminophen 5-325mg 1 - 2 tab PO Q4H PRN PRN Pain ##12 10/05/13 Unknown Rx 5mg-325mg hydroxychloroquine 200 mg tablet 200 mg PO BIDCM 10/05/13 Unknown History levothyroxine 150 mcg tablet 150 mcg PO DAILY 10/05/13 Unknown History etanercept 50 mg/mL (1 mL) mg subcut 08/08/21 Unknown History subcutaneous pen injector (Enbrel SureJaisonick) hydrocodone-acetaminophen 5-325mg 1 tab PO Q6H PRN pain 3 days #10 08/09/22 Unknown Rx 5mg-325mg tabs ondansetron 4 mg disintegrating 4 mg PO Q8H PRN nausea and 08/09/22 Unknown Rx tablet vomiting #10 tabs promethazine 25 mg tablet 25 mg PO TID PRN nausea and 08/09/22 Unknown Rx vomiting #10 tabs ondansetron 4 mg disintegrating 4 mg PO TID PRN nausea and 09/24/24 Unknown Rx tablet vomiting #21 tabs dicyclomine 20 mg tablet 20 mg PO TID #30 tabs 12/08/24 Unknown Rx ondansetron 4 mg disintegrating 4 mg PO Q6H PRN nausea and 12/08/24 Unknown Rx tablet vomiting #30 tabs dicyclomine 20 mg tablet 20 mg PO TID PRN abdominal pain 02/27/25 Unknown Rx #20 tabs Allergy/AdvReac Type Severity Reaction Status Date / Time aminocaproic acid (From Allergy Rash Verified 02/27/25 12:52 Amicar) methotrexate AdvReac Other Verified 02/27/25 12:52 Surgical History Hx of cholecystectomy Social History Smoking Status: Never smoker ROS ROS ED ROS Narrative Review of systems positive for multiple episodes of diarrhea over the last few days, positive diarrhea x 1 week. Positive abdominal cramping and pain diffusely. No fevers or chills. No nausea or vomiting. She states she also gets abdominal pain whenever she urinates as well. EXAM Physical Exam Narrative Exam Narrative: Afebrile. Vital signs noted. Nontoxic-appearing. Cardiovascular examination of is a regular rate and rhythm. Lungs are clear to auscultation bilaterally. The abdomen is soft with mild diffuse tenderness to palpation without guarding or rebound. Positive bowel sounds. Neurological examination nonfocal, nonlateralizing. Seen ambulating back to room after using the restroom. Mildly antalgic gait. Const Vital Signs: 02/27/25 12:50 02/27/25 14:50 Temperature 96.5 F L Temperature Source Oral Pulse Rate 69 77 Respiratory Rate 22 H 16 Blood Pressure 136/57 H 122/64 H Blood Pressure Mean 83 83 Pulse Ox 97 98 Oxygen Delivery Method Room Air MDM MDM MDM Narrative Medical decision making narrative: I reviewed the patient's prior records and laboratory work. She had normal white count at that time. She had CT imaging that was negative and was diagnosed with a pulmonary nodule as well as avascular necrosis of the hip. Differential diagnosis includes but not limited to gastroenteritis/enteritis versus C. difficile versus irritable bowel syndrome versus ulcerative colitis/Crohn disease. I reviewed her laboratory work and she has normal white count of 6.4 with hemoglobin 13.8, hematocrit 40.5, platelet count normal at 250. CMP is grossly unremarkable, no significant change when compared to prior labs. Urinalysis positive for ketones but not infection. I do not feel antibiotics are indicated. I reviewed the radiology report of the CT of the abdomen and pelvis and there is no inflammatory process in the right lower quadrant, no acute process. Upon repeat examination, she states her abdominal cramping has improved. I will write her prescription for Bentyl. I feel she can be discharged to follow-up with her primary care provider who can perform stool studies as she was unable to produce a stool sample here again. Additionally, she was referred to gastroenterology for her 1 week of diarrhea. Disposition is discharged home in stable condition. History & Record Review Discussion w/independent historian: Patient and Family Additional record(s) reviewed:: Prior ED visit and Prior labs Lab Data Attestation: I reviewed the patient's lab results. Labs: Laboratory Results - last 24 hr 02/27/25 02/27/25 13:49 14:25 WBC 6.4 RBC 4.75 Hgb 13.8 Hct 40.5 MCV 85.3 MCH 29.1 MCHC 34.1 RDW Std Deviation 40.2 RDW Coeff of Natalia 13.0 Plt Count 250 MPV 10.3 Immature Gran % (Auto) 0.200 Neut % (Auto) 62.6 Lymph % (Auto) 25.2 [place] % (Auto) 8.9 Eos % (Auto) 2.2 Baso % (Auto) 0.9 Absolute Neuts (auto) 4.0 Absolute Lymphs (auto) 1.61 Nucleated RBC % 0 Sodium 141 Potassium 3.6 Chloride 105 Carbon Dioxide 21.5 Anion Gap 14 BUN 15 Creatinine 0.81 Est GFR (MDRD) Non-Af 81 BUN/Creatinine Ratio 19.0 Glucose 79 Calcium 9.5 Total Bilirubin 0.49 AST 26 ALT 20 Alkaline Phosphatase 69 Total Protein 6.9 Albumin 4.4 Globulin 2.5 Albumin/Globulin Ratio 1.8 Lipase 48 Urine Color Yellow Urine Clarity Sl. Cloudy Urine pH 6.0 Ur Specific Mammoth 1.020 Urine Protein 30 H Urine Glucose (UA) Normal Urine Ketones 150 A* Urine Occult Blood 10 H Urine Nitrite Negative Urine Bilirubin 1 H Urine Urobilinogen 1 H Ur Leukocyte Esterase 25 H Urine RBC 0 SEEN Urine WBC 0-5 SEEN Ur Squamous Epith Cells 0-5 SEEN Calcium Oxalate Crystal 1+ Urine Bacteria 0 SEEN Urine Mucus 1+ Radiography Diagnostic Testing: Clinical Impression(s) from Imaging Studies Abdomen/Pelvis CT 02/27/25 14:50 IMPRESSION: Stable examination. Status post cholecystectomy. Sigmoid diverticulosis. Reading Location: [id number] Discharge Plan Triage Chief Complaint: Abd Pain ED Provider: Nghia Medellin Dx/Rx/DC Orders Clinical Impression: Abdominal pain, Diarrhea Instructions: ED Abdominal Pain Unkn Cause Fem, ED Diarrhea, Unknown Cause Prescriptions: New dicyclomine 20 mg tablet 20 mg PO TID PRN (Reason: abdominal pain) Qty: 20 0RF No Action cyclobenzaprine 10 MG tablet 10 mg PO TID levothyroxine 150 MCG tablet 150 mcg PO DAILY hydroxychloroquine 200 MG tablet 200 mg PO BIDCM dexlansoprazole [Dexilant] 60 MG capsule,biphase delayed releas 60 mg PO DAILY Chlordiazepoxide/Clidinium Br [Chlordiazepoxide-Clidinium Cap] 1 EACH capsule 1 capsule PO BID estradiol 0.1 MG patch 0.1 mg topical QWEEK Patient Comments: CHANGES PATCH 2 TIMES WEEKLY hydrocodone-acetaminophen 1 TABLET tablet 1 - 2 tab PO Q4H PRN PRN (Reason: Pain) Qty: 12 0RF Enbrel SureClick 50 mg/mL (1 mL) pen injector SUBCUT hydrocodone-acetaminophen 5-325 mg tablet 1 tab PO Q6H PRN (Reason: pain) 3 Days Qty: 10 0RF ondansetron 4 mg tablet,disintegrating 4 mg PO Q8H PRN (Reason: nausea and vomiting) Qty: 10 0RF promethazine 25 mg tablet 25 mg PO TID PRN (Reason: nausea and vomiting) Qty: 10 0RF ondansetron 4 mg tablet,disintegrating 4 mg PO TID PRN (Reason: nausea and vomiting) Qty: 21 0RF dicyclomine 20 mg tablet 20 mg PO TID Qty: 30 0RF ondansetron 4 mg tablet,disintegrating 4 mg PO Q6H PRN (Reason: nausea and vomiting) Qty: 30 0RF Primary Care Provider: Rambo Robertson Referrals: Rambo Robertson MD [Primary Care Provider] - As soon as possible Friend,DO Demarcus [Med Staff - Active Staff] - As soon as possible Activity Restrictions/Additional Instructions: Follow-up with your primary care provider in the next few days. They can perform stool studies as an outpatient as well. Follow-up with gastroenterology as soon as possible. Print Language: Slovak Disposition Disposition: Home, Self Care
[2025-02-27 14:22] LABS: ALB/GLOB Ratio 1.8 RATIO (0.9-2.4); AST(SGOT) 26 U/L (<=31); Alanine Aminotransfer ALT/SGPT 20 U/L (<=34); Albumin, Serum 4.4 g/dL (3.4-4.8); Alkaline Phosphatase 69 U/L (35-104); Anion Gap 14 (5-15); BUN 15 mg/dL (4-19); Calcium,Total 9.5 mg/dL (7.6-11.0); Carbon Dioxide 21.5 mmol/L (21.0-32.0); Chloride 105 mmol/L (98-108); Creatinine, Serum 0.81 mg/dL (0.70-1.20); EST Glomerular Filtration Rate 81 (>60); Globulin 2.5 g/dL (2.2-4.2); Glucose 79 mg/dL (70-99); Lipase 48 U/L (13-75); Potassium 3.6 mmol/L (3.3-5.1); Protein, Total 6.9 g/dL (5.9-8.4); Sodium Level 141 mmol/L (133-145); Total Bilirubin 0.49 mg/dL (0.00-1.30)
[2025-02-27 14:41] LABS: Bacteria 0 SEEN /hpf (None Seen); Color, Urine Yellow (Yellow); Glucose, Dipstick Normal (Normal); Leukocyte Esterase-Dipstick 25 /ul (Negative); Nitrite-Dipstick Negative (Negative); Occult Blood-Urine 10 /ul (Negative); Protein-Dipstick 30 mg/dl (Negative); Red Blood Cells-Urine 0 SEEN /hpf (0-5); Urine Clarity Sl. Cloudy (Clear); Urine Urobilinogen 1 mg/dl (Normal)
[2025-02-27] MEDS: 0.9% Normal Saline (1000mL) 1,000 ML 999 ML IV ×2 (14:46→15:49)
[2025-02-27] MEDS: Dicyclomine 20 MG/2 ML Vial IM (14:46)
[2025-02-27 14:47] LABS: Urine Bilirubin Dipstick 1 mg/dL (Negative)
[2025-02-27 14:50] VITALS: BP 122/64; PULSE 77; RESP 16; O2SAT 98
--- NOTE | 2025-02-27 14:50 | CT_ITS ---
PROCEDURE: ABDOMEN/PELVIS W IV CONT ONLY 02/27/2025 REASON FOR EXAM: DIARRHEA, ABDOMINAL PAIN TECHNIQUE: ABDOMEN/PELVIS W IV CONT ONLY Coronal and Sagittal reconstruction series were provided. CONTRAST: Isovue-300 VOLUME: 94 mL One or more dose reduction techniques were used (e.g., Automated exposure control, adjustment of the mA and/or kV according to patient size, use of iterative reconstruction technique. RADIATION DOSE SUMMARY: CTDlvol: 9 mGy DLP: 288.16 mGycm COMPARISON: Prior study dated February 25, 2025. FINDINGS: Bilateral breast implants. Lung bases: Lung bases are clear. Liver: Normal size. No mass. Gallbladder: Surgically absent. Spleen: Normal size. Pancreas: Normal size without evidence of mass surrounding inflammation or ductal dilation. Adrenals: Unremarkable Kidneys: Normal renal sizes. No hydronephrosis. Bladder: Unremarkable Reproductive Organs: Prior hysterectomy. Adnexal regions are unremarkable. Bowel: Colonic diverticulosis without diverticulitis. Appendix: The appendix is not identified. There is no inflammatory process identified in the right lower quadrant to suggest appendicitis. Lymph nodes: Unremarkable. Vasculature: Mild diffuse atherosclerotic calcifications are noted. Peritoneum / Retroperitoneum: Unremarkable Bones: Degenerative changes of the spine. CT/Abdomen/Pelvis W IV Cont ONLY IMPRESSION: Stable examination. Status post cholecystectomy. Sigmoid diverticulosis. Reading Location: [id number]
[2025-02-27 14:55] LABS: Ketone-Dipstick 150 mg/dl (Negative)
[2025-02-27 14:56] LABS: Calcium Oxalate Crystals Ur 1+ /hpf (<or=2+)
[2025-02-27 14:57] LABS: Mucous, Urine 1+ /hpf (<or=2+); Squamous Epithelial Cells - UA 0-5 SEEN /hpf (5-10); White Blood Cells 0-5 SEEN /hpf (0-5)
[2025-02-27 16:00] VITALS: BP 131/66; PULSE 71; RESP 16; O2SAT 99
[2025-02-27 16:31] VITALS: BP 131/66; PULSE 71; RESP 16; TEMP 36.6; O2SAT 99
== END 2025-02-27 16:34 | disposition home or self-care (01) ==
PROVIDERS: Emergency Provider Emergency Medicine; PCP Family Medicine; Referring Provider Emergency Medicine; Visit Provider Emergency Medicine
DX: R10.9 Unspecified abdominal pain (principal); R19.7 Diarrhea, unspecified
CPT/HCPCS: 74177; 80053; 81001; 83690; 85025; 96360; 96361; 96372; 99283; Q9967; A4216